=== PATIENT | male | born 1935 | race Caucasian/White ===

== ENCOUNTER → 2016-08-25 | Outpatient (REF) | payer MEDICARE ==
[~2016-08-25] MED LIST: /TAMS4CA PO; /WARF25TA; ACET25TA8 PO; ACET65TA PO; BACITAB3 PO; COUM1TAB; DIOV160T5; LEVA750T PO; LOSA100T36 PO; MULTIVIT PO; MYLI40DR PO; NEUR300C PO; NEUTRAPHOS PO; PERC5TAB8; PERCOCET PO; PROS5TAB PO; SENO8.6T10 PO; SENO8.6T2 PO; TYLENOL #3; VITA400C; ZOFR8TAB PO; ZYLO300T PO; [UNRECOGNIZED DRUG - CODE] PO
[2016-08-25 18:50] LABS: BASO # 0.1 K/mm3 (0.0-0.2); EOS # 0.3 K/mm3 (0.0-0.50); EOS % 4.6 % (0.0-3.0); LARGE UNSTAINED CELL # 0.3 K/mm3 (0.0-0.4); LARGE UNSTAINED CELL % 3.8 % (0.0-4.0); LYMPH % 27.4 % (24.0-44.0); MEAN CORPUSCULAR HEMOGLOBIN 30.7 pg (27.0-33.0); MEAN CORPUSCULAR HGB CONC 34.5 g/dl (32.0-36.5); MONO # 0.7 K/mm3 (0.0-0.8); MONO % 10.1 % (0.0-5.0); NEUTROPHILS # 3.8 K/mm3 (1.8-7.7); NEUTROPHILS % 53.1 % (36.0-66.0); PLATELET COUNT, AUTOMATED 298 k/mm3 (150-450); RED CELL DISTRIBUTION WIDTH 13.1 % (11.5-14.5); WHITE BLOOD COUNT 7.2 K/mm3 (4.0-10.0)
[2016-08-25 18:51] LABS: ADD MORPHOLOGY? NO
[2016-08-25 19:38] LABS: ALBUMIN/GLOBULIN RATIO 1.43 (1.00-1.93); BILIRUBIN,TOTAL 0.6 MG/DL (0.2-1.0); CALCIUM LEVEL 8.9 MG/DL (8.8-10.2); CREATININE FOR GFR 1.27 MG/DL (0.70-1.30); FREE T4 0.8 NG/DL (0.76-1.46); GLOMERULAR FILTRATION RATE 58.1 (>35); POTASSIUM SERUM 4.1 MEQ/L (3.5-5.1); TOTAL PROTEIN 6.8 GM/DL (6.4-8.2)
== END ==
LOC: M SFHCLERA 13:44
PROVIDERS: ATTEND Family Medicine
DX: R06.02 Shortness of breath (principal); J30.9 Allergic rhinitis, unspecified; Z79.899 Other long term (current) drug therapy

== ENCOUNTER → 2016-08-25 | Outpatient (CLI) | payer MEDICARE ==
--- NOTE | 2016-08-25 19:22 | REP ---
CHEST, TWO VIEWS: HISTORY: Dyspnea. Latest prior for comparison is a portable examination obtained at [facility] on 12/08/2013. If the patient has had priors in the interim from an outside institution then they must be obtained and imported into the [employer] system in order for a comparison to be made. [facility] is not part of the [employer] System and can not be accessed through common view. The prior examination for comparison is dated 12/08/2013, a portable examination and other older examinations have also been reviewed. The cardiomediastinal silhouette is within normal limits for the patient's age of 81-years. There is no sue cardiomegaly. There is a nodule in the left lower lung field which is completely unchanged from 12/18/2009. It is either a benign pulmonary nodule or it represents the patient's nipple shadow. The lung durán are otherwise unremarkable. The pleural angles are sharp. There is no change in the osseous structures. Chronic changes are seen are seen involving the left shoulder. IMPRESSION: No evidence of acute cardiopulmonary disease with findings as described above. Signed by William Archer DO 08/26/2016 10:12 A
== END ==
LOC: M LRY 14:05
PROVIDERS: ATTEND Nurse Practitioner Adult Health
DX: R06.02 Shortness of breath (principal); J30.9 Allergic rhinitis, unspecified; Z79.899 Other long term (current) drug therapy
CPT/HCPCS: 71020; 80053; 84439; 84443; 85025; 93005; G0463

== ENCOUNTER → 2016-10-26 | Outpatient (CLI) | payer MEDICARE ==
[~2016-10-26] MED LIST changes: +ALLO15TA GT; +FINA5TAB2 PO; +FLOM5CAP PO; +MODU5TA PO
[2016-10-26 12:55] LABS: INR 0.99
[2016-10-26 13:04] LABS: MEAN CORPUSCULAR HEMOGLOBIN 30.3 pg (27.0-33.0); MEAN CORPUSCULAR HGB CONC 33.2 g/dl (32.0-36.5); MEAN CORPUSCULAR VOLUME 91.3 fl (80.0-96.0); RED CELL DISTRIBUTION WIDTH 13.3 % (11.5-14.5); WHITE BLOOD COUNT 6.4 K/mm3 (4.0-10.0)
[2016-10-26 13:30] LABS: ALBUMIN/GLOBULIN RATIO 1.43 (1.00-1.93); ALKALINE PHOSPHATASE 84 U/L (45-117); ALT/SGPT 25 U/L (12-78); ANION GAP 8 MEQ/L (8-16); AST/SGOT 14 U/L (15-37); BLOOD UREA NITROGEN 19 MG/DL (7-18); CALCIUM LEVEL 9.5 MG/DL (8.8-10.2); CARBON DIOXIDE LEVEL 30 MEQ/L (21-32); CHLORIDE LEVEL 100 MEQ/L (98-107); CREATININE FOR GFR 1.14 MG/DL (0.70-1.30); GLOMERULAR FILTRATION RATE > 60.0 (>35); GLUCOSE, FASTING 105 MG/DL (83-110); POTASSIUM SERUM 4.1 MEQ/L (3.5-5.1); SODIUM LEVEL 138 MEQ/L (136-145); TOTAL PROTEIN 6.8 GM/DL (6.4-8.2)
== END ==
LOC: M ADMPAT 10:32
PROVIDERS: ATTEND Orthopaedic Surgery
DX: Z01.818 Encounter for other preprocedural examination (principal); M17.11 Unilateral primary osteoarthritis, right knee; Z79.899 Other long term (current) drug therapy

== ENCOUNTER 2016-11-09 06:40 | Inpatient (IN) | payer MEDICARE ==
[2016-10-26 12:01] VITALS: BP 124/70
--- NOTE | 2016-11-02 17:19 | HPE ---
DATE OF ADMISSION: 11/09/2016 HISTORY OF PRESENT ILLNESS: This is a pleasant male with continuing symptomatic right knee osteoarthritis. He has consented for a right total knee arthroplasty per Dr. Brenden Araujo. Medical optimization per Dr. Christianson. X-rays are consistent with advanced osteoarthritis. ALLERGIES: No known drug allergies. MEDICAL PROBLEM LIST: Includes: 1. Symptomatic right knee osteoarthritis. 2. Essential hypertension. 3. History of gout. 4. Benign prostatic hypertrophy (BPH). 5. Chronic obstructive pulmonary disease (COPD). 6. Herpes. 7. Obstructive sleep apnea (LACEY). 8. Bilateral hearing aids. PAST SURGICAL HISTORY: 1. Appendectomy and subsequent lysis of lesions. 2. Kidney operation as a child. 3. Knee in 2000. 4. Cyst removal, left neck September 2014. 5. Cholecystectomy. 6. Arm surgery. 7. Lithotripsy. FAMILY HISTORY: Positive for myocardial infarction ([place]), heart disease, melanoma, cancer, kidney failure, one son committed suicide. SOCIAL HISTORY: He is a former smoker and has not smoked in greater than 10 years' time. REVIEW OF SYSTEMS: Denies chest pain, shortness of breath, dyspnea on exertion, fever, chills, malaise, upper respiratory or urinary tract symptoms. PHYSICAL EXAMINATION: Height 69 inches, weight 221. Temperature 97.7, blood pressure 118/62, respirations 16, pulse 80. He is a pleasant, elderly, white male in no acute distress. He is alert and oriented times three. Mood and affect are appropriate. He is ambulating without overt antalgia or assistance, favoring as noted about the left lower extremity. Right knee examined, non-effused, ecchymotic or erythematous. Benign and noninfectious looking. Positive medial joint line tenderness to palpation with crepitance through flexion and extension. Patellofemoral joint (PFJ) is congruent, static and dynamic. No popliteal fossa mass or pain. Right hip range of motion is not limited or irritable through internal or external range of motion. LABORATORY DATA AND DIAGNOSTICS: Reviewed. The patient did have a positive urine culture for Enterococcus faecalis greater than 1000 colony count and has initiated a course of Bactrim DS as of 10/27/2016. Additionally, leukocyte esterase urine auto +1, WBC urine auto 14, RBC urine auto 6, bacteria urine auto 3+, amorphous sediment small. BUN was 19, AST/SGOT 14, hemoglobin 13.9. IMPRESSION: 1. Symptomatic right knee osteoarthritis. 2. The patient consented for a right total knee arthroplasty per Dr. Brenden Araujo. 3. Medical optimization per Dr. Christianson. 4. On-call to operating room (OR) 2 grams of IV Kefzol in OR. 5. Sequential compression device (SCD) and thromboembolic-deterrent stockings in OR. 6. The patient will complete the course of prescribed Bactrim DS per his urine culture positive for Enterococcus faecalis. CASD
[~2016-11-09] VITALS: Ht 182.9 cm; Wt 105.4 kg
[2016-11-09] VITALS (7 sets, daily range): BP systolic 114–146; BP diastolic 58–73
[~2016-11-09 06:40] MED LIST changes: -ALLO15TA GT; -FINA5TAB2 PO; -FLOM5CAP PO; -MODU5TA PO
[2016-11-09] MEDS ORDERED: LR 1,000 ML IV SCH ×2 (06:45→11:00)
[2016-11-09] MEDS ORDERED: FLOM5CAP PO (07:38)
[2016-11-09] MEDS ORDERED: TRANEXAMIC ACID 100 MG/ML 10ML VIAL As Ordered ONE (07:38)
[2016-11-09] MEDS ORDERED: FINA5TAB2 PO (07:38)
[2016-11-09] MEDS ORDERED: ALLO15TA GT (07:38)
[2016-11-09] MEDS ORDERED: BUPIVACAINE HCL 0.25% 30 ML VIAL As Ordered ONE (07:38)
[2016-11-09] MEDS ORDERED: NEUR300C PO (07:38)
[2016-11-09] MEDS ORDERED: MODU5TA PO (07:38)
[2016-11-09] MEDS ORDERED: EPINEPHrine INJ 1 MG/ML 1ML VIAL/AMP As Ordered ONE (07:39)
[2016-11-09] MEDS ORDERED: ceFAZolin 1GM INJ (J0690) As Ordered ONE (07:39)
[2016-11-09] MEDS ORDERED: MIDAZOLAM INJ 2 MG/2 ML VIAL (J2250) As Ordered ONE ×2 (08:03→09:41)
[2016-11-09] MEDS ORDERED: fentaNYL 100 MCG/2 ML INJECTION (J3010) As Ordered ONE ×3 (08:03→09:41)
--- NOTE | 2016-11-09 08:25 | IPN ---
DATE: 11/09/2016 The patient is seen and examined. He wished to go ahead with a right total knee arthroplasty. He understands the nature of procedure, risks of bleeding, infection, damage to nerves, vessels, persistent pain, wear loosening, blood clots, medical problems, , among others. Preoperative clearance was obtained. He wishes to proceed.
[2016-11-09] MEDS ORDERED: MIDAZOLAM INJ 2 MG/2 ML VIAL (J2250) IV ONE (09:00)
[2016-11-09] MEDS ORDERED: fentaNYL 100 MCG/2 ML INJECTION (J3010) IV ONE (09:00)
[2016-11-09] MEDS ORDERED: PROPOFOL 200 MG/20 ML VIAL As Ordered ONE (09:41)
[2016-11-09] MEDS ORDERED: MORPHINE 1MG/ML IN 0.9% NACL 100ML IV BAG As Ordered ONE (10:39)
[2016-11-09] MEDS ORDERED: FLEET ENEMA PR PRN (11:00)
[2016-11-09] MEDS ORDERED: ONDANSETRON 4MG/2ML VIAL (J2405) IV PRN ×3 (11:00)
[2016-11-09] MEDS ORDERED: NALOXONE INJ 0.4 MG/1 ML VIAL (J2310) IV PRN (11:00)
[2016-11-09] MEDS ORDERED: MORPHINE 2 MG/ML 1ML SYRINGE IV PRN (11:00)
[2016-11-09] MEDS ORDERED: EPIDURAL/PCA KEYS XX PRN (11:00)
[2016-11-09] MEDS ORDERED: fentaNYL 100 MCG/2 ML INJECTION (J3010) IV PRN (11:00)
[2016-11-09] MEDS ORDERED: NALBUPHINE HCL 10 MG/ML AMP (J2300) IV PRN (11:00)
[2016-11-09] MEDS ORDERED: MORPHINE 1MG/ML IN 0.9% NACL 100ML IV BAG IV PRN (11:00)
[2016-11-09] MEDS ORDERED: diphenhydrAMINE INJ 50MG/ML VIAL (J1200) IV PRN (11:00)
[2016-11-09] MEDS ORDERED: ACETAMINOPHEN TAB 650MG DOSE (2X325MG) PO PRN (11:00)
[2016-11-09] MEDS ORDERED: PATIENT IS CURRENTLY ON AN ON-Q PAIN BUSTER PAIN RELIEF SYSTEM XX SCH (11:00)
[2016-11-09] MEDS ORDERED: PERCOCET 5MG/325MG TAB PO PRN (11:00)
[2016-11-09] MEDS ORDERED: METOCLOPRAMIDE INJ 10MG/2ML VIAL (J2765) IV PRN (11:00)
--- NOTE | 2016-11-09 12:20 | RO ---
DATE OF PROCEDURE: 11/09/2016 PREOPERATIVE DIAGNOSIS: Right knee osteoarthritis. POSTOPERATIVE DIAGNOSIS: Right knee osteoarthritis. PROCEDURE: Right total knee arthroplasty using a PFC rotating platform cruciate retaining size 4 femur, size 4 tibia, 10 polyethylene, 38 patellar button. SURGEON: Brenden Araujo MD PAINT MIXER: ADRIÁN Null ANESTHESIA: Spinal. ESTIMATED BLOOD LOSS: Less than 50. COMPLICATIONS: None. INDICATIONS: This is an 81-year-old gentleman who has had gradually worsening knee pain on the right. He had failed conservative management. He had been through a knee replacement on the left and did well, and he wished go ahead with a right knee replacement. He understood the nature of this, the risks of bleeding, infection, damage to nerves, vessels, persistent pain, wear loosening, blood clots, medical problems, , among others. DESCRIPTION OF PROCEDURE: Patient taken to operating room and placed position after spinal anesthesia was induced. The right lower extremity was prepped and draped in usual sterile fashion. Time-out was performed. Tourniquet was inflated. I then created a longitudinal incision over the anterior aspect of the right knee. Sharp dissection was carried down through subcutaneous tissue and I performed a medial parapatellar arthrotomy per routine, everted the patella. I did remove some of the fat pad and did a medial release. The knee was flexed up. I used a canal initiating reamer on the femoral side, followed by the guide, which was set at 5 degrees, and a 10 mm cut using the intramedullary jaz. This was pinned in place by the social human services assistants and a distal femoral cut was made by the social human services assistants as I provided retraction. The femur was sized to be a 4. I made the drill holes in the end of the femur with the external rotation device, pinned the 4-in-1 cutting block on the end of the femur and then made the remaining four cuts protecting soft tissues. We then prepared the tibia. The tibial alignment guide was then placed in the appropriate amount of valgus and posterior slope, cutting about 2 mm off the low side because the low side was a little more deficient than we sometimes see. I then made this cut removing the bone, which seemed to be an appropriate thickness. Industrial Equipment Mechanic was used to remove soft tissue and bony osteophytes from either side of the knee and the spacer block was then used, size 10, which had excellent stability and alignment in flexion and extension, and we were very pleased with the cuts. I then prepared the tibia, size 4 guide was then pinned in place and the drill and broach were used. The trial components were then placed and put through a range of motion. Excellent stability and alignment were noted, and excellent fit of the components. I then freehand cut the patella moving about 7 or 8 mm of bone and then sized to be a 38. Drill holes were made and the patella tracked very nicely. The drill holes were made in the end of the femur. I then removed the trial components. The social human services assistants prepared the bone cement in the modern technique on the back table. I irrigated copiously as I had several times prior to this, and then dried the bony surfaces. We then cemented on the tibial component, impacted in place, placed the 10 x size 45 polyethylene and the size 4 femur was cemented on. I had placed a little bit of cement on the posterior condyles of the femoral component. We removed excess bone cement, put the knee out in extension, cemented on the patella, held this in place with a clamp and removed excess bone cement. I irrigated copiously. I then placed the placed tranexamic acid (TXA) solution in the knee and closed the deep layer with some interrupted #1 Vicryl sutures in a [id number] fashion. The running Stratafix was then used, and I was able to remove the patellar clamp after the cement had hardened. We did single arm stitches starting at the midpoint and working in opposite directions with the social human services assistants helping. I then irrigated. I closed subcutaneous with #2-0 Vicryl and the skin with roxy. The PainBuster catheter was inserted laterally into the joint and primed with 10 mL of Marcaine. I irrigated multiple times prior to closure, including copious irrigation of the deep layers after the components were placed. The tourniquet was deflated. The PainBuster was placed along the lateral side of the thigh in the usual fashion and tourniquet had been deflated. He was taken to recovery room in stable condition. There were no known complications. The plan will be routine postop. The social human services assistants was instrumental in holding retractors, making the distal femoral cut and assisting in wound closure and mixing the cement.
[2016-11-09] MEDS: TAMSULOSIN 0.4 MG CAP PO SCH (12:47)
[2016-11-09] MEDS: LR 1,000 ML IV SCH ×2 (12:48→20:09)
--- NOTE | 2016-11-09 13:59 | CR ---
DATE OF CONSULTATION: 11/09/2016 REQUESTING PHYSICIAN: Brenden Araujo MD REASON FOR CONSULTATION: Postop medical management. HISTORY OF PRESENT ILLNESS: Mr. Cerda is an 81-year-old male with past medical history significant for hypertension, chronic obstructive pulmonary disease (COPD), obstructive sleep apnea on CPAP, gout, hearing loss and osteoarthritis, who presented to the hospital with symptomatic right knee osteoarthritis. Despite medical treatment, he opted for a right total knee arthroplasty by Dr. Araujo. Surgery was done this morning without any complications. Vitals are currently stable and he will continue to be monitored closely. PAST MEDICAL HISTORY: 1. Hypertension. 2. COPD. 3. Obstructive sleep apnea on CPAP. 4. Osteoarthritis. 5. Gout. 6. Hearing loss with bilateral hearing aids. 7. Benign prostatic hypertrophy. 8. History of herpes. PAST SURGICAL HISTORY: 1. Appendectomy and lysis of adhesions. 2. Cholecystectomy. 3. Kidney operation as a child. 4. Knee surgery. 5. Cyst removal on the neck. 6. Lithotripsy. 7. Arm surgery. HOME MEDICATIONS: - acetaminophen 650 mg by mouth every 4 hours as needed - Senokot S two tablets by mouth twice daily as needed - gabapentin 300 mg twice daily - losartan 100 mg by mouth daily - amiloride/hydrochlorothiazide one tablet by mouth daily - allopurinol 300 mg daily - finasteride 5 mg by mouth at night - Flomax 0.4 mg by mouth daily ALLERGIES: No known drug allergies. SOCIAL HISTORY: Patient is a former smoker, quit in 1972. Smoked for about 5-6 years. No alcohol or illicit drug use. He lives alone. FAMILY HISTORY: Significant for coronary artery disease, cancer, and kidney disease. REVIEW OF SYSTEMS: The patient is currently postop. He denies any headache, lightheadedness or dizziness. No fevers or chills. No chest pain, sinus pressure, shortness of breath, palpitation. No nausea, vomiting, abdominal pain, diarrhea, hematochezia. No change in urinary frequency, dysuria or hematuria. No rashes. No paresthesias. No history of diabetes or thyroid disorder. Patient reports that his pain is currently controlled in the right knee. Right knee is wrapped in dressing. PHYSICAL EXAMINATION: VITAL SIGNS: Temperature 96.5, pulse 52, respiratory rate 16, blood pressure 117/67, pulse ox 98% on 2 liters nasal cannula. GENERAL: The patient is alert and oriented in no acute distress. HEENT: Normocephalic, atraumatic. Extraocular muscles are intact. Moist mucosa. NECK: Supple. No cervical lymphadenopathy or thyromegaly. HEART: Normal S1 and S2, bradycardic, regular rhythm. No murmur appreciated. LUNGS: Clear to auscultation bilaterally. No rales, rhonchi or wheezing. ABDOMEN: Soft, nontender. Positive bowel sounds. No rebound, guarding or rigidity. EXTREMITIES: Right knee is wrapped in dressing with minimal swelling. Pulses are present bilaterally. SKIN: Warm and dry. No rashes noted. NEUROLOGIC: No focal deficits. Cranial nerves II through XII are grossly intact. Sensation intact. Right knee limited secondary to recent surgery. All other extremities are moving normally. LABORATORY DATA: No new labs. ASSESSMENT/PLAN: Mr. Cerda is a 81-year-old male status post right knee arthroplasty by Dr. Araujo. 1. Right knee osteoarthritis status post right total knee arthroplasty postop day number 0. Pain medication and deep vein thrombosis (DVT) prophylaxis per orthopedics. The patient's pain is currently well controlled. 2. Hypertension. Blood pressure is stable. Will continue to monitor. He takes losartan at home, which we will hold for the time being. If blood pressures become elevated tomorrow, we will resume his home medication. The patient also takes amiloride/hydrochlorothiazide. 3. COPD. Breathing is currently stable. DuoNeb breathing treatments as needed. 4. Obstructive sleep apnea. The patient may use home CPAP. 5. History of gout. Continue with allopurinol daily. 6. Benign prostatic hypertrophy. Finasteride and Flomax daily. 7. Hearing loss. The patient uses bilateral hearing aids. 8. Deep vein thrombosis (DVT) prophylaxis. Patient is on warfarin. Thank you for the consultation and allowing us to participate in the care of Mr. Cerda. We will continue to follow along with you. My preceptor for this patient encounter was Dr. Eulalia Rapp. The preceptor was physically present in the building during the encounter and was fully available. As needed, all aspects of the patient interview, examination, medical decision making process, and medical care plan development were reviewed and approved by the preceptor. The preceptor is aware and concurs with the plan as stated in the body of this note and will attest to such by his/her cosignature.
[2016-11-09] MEDS ORDERED: WARFARIN SOD 5 MG TAB PO SCH (17:00)
[2016-11-09] MEDS: FINASTERIDE 5 MG TAB PO SCH (20:08)
[2016-11-10 00:30] VITALS: BP 133/72
[2016-11-10 04:30] VITALS: BP 143/72
[2016-11-10 06:01] VITALS: BP 147/69
[2016-11-10] MEDS ORDERED: ONDANSETRON 4 MG TAB (S0181) PO PRN (06:45)
[2016-11-10 07:31] LABS: MEAN CORPUSCULAR HEMOGLOBIN 30.7 pg (27.0-33.0); MEAN CORPUSCULAR HGB CONC 33.9 g/dl (32.0-36.5); MEAN CORPUSCULAR VOLUME 90.7 fl (80.0-96.0); RED CELL DISTRIBUTION WIDTH 13.5 % (11.5-14.5); WHITE BLOOD COUNT 10.1 K/mm3 (4.0-10.0)
[2016-11-10 07:34] LABS: INR 1.22
[2016-11-10 07:58] LABS: ANION GAP 7 MEQ/L (8-16); BLOOD UREA NITROGEN 17 MG/DL (7-18); CALCIUM LEVEL 8.3 MG/DL (8.8-10.2); CARBON DIOXIDE LEVEL 30 MEQ/L (21-32); CHLORIDE LEVEL 101 MEQ/L (98-107); CREATININE FOR GFR 0.97 MG/DL (0.70-1.30); GLOMERULAR FILTRATION RATE > 60.0 (>35); GLUCOSE, FASTING 125 MG/DL (83-110); SODIUM LEVEL 138 MEQ/L (136-145)
--- NOTE | 2016-11-10 09:01 | REP ---
Right knee series: Two views. History: Right knee arthroplasty. Placement check. Findings: The femoral, patellar, and tibial prosthetic components of the right knee arthroplasty are well aligned with respect to each other and their [place] bones. Anterior skin roxy are seen. Periarticular soft tissue swelling and postoperative emphysema are noted. A catheter-based analgesia device is seen in the distal thigh. Signed by Isaias Heath MD 11/10/2016 12:00 P
[2016-11-10] MEDS: MIRALAX *UNIT DOSE* 17GM PACKET PO SCH (09:39)
[2016-11-10] MEDS: MOM 30ML SUSPENSION UDC PO SCH (09:39)
[2016-11-10] MEDS: ALLOPURINOL 300 MG TAB PO SCH (09:39)
[2016-11-10] MEDS: SENOKOT S TAB PO SCH ×2 (09:40→20:24)
[2016-11-10] MEDS: TAMSULOSIN 0.4 MG CAP PO SCH (09:40)
[2016-11-10] MEDS: PERCOCET 5MG/325MG TAB PO PRN ×3 (09:40→21:37)
[2016-11-10 10:00] VITALS: BP 148/72
[2016-11-10 14:00] VITALS: BP 160/80
--- NOTE | 2016-11-10 14:42 | IPNPDOC ---
Subjective Date Seen The patient was seen on 11/10/16. Subjective Chief Complaint/HPI The patient is a 81-year-old male admitted with a reason for visit of Arthritis Right Knee. Events since last encounter Patient was seen this morning at bedside. Pain is currently controlled. He reports that he had some vomiting early this morning after receiving morphine. He received Zofran and it resolved. No recurrence since. He denies any nausea or abd pain. No chest pain/pressure, SOB, palpitations. No dizziness or headache. He states that he doesn't have much of an appetite. He states he usually doesn't eat much for lunch but usually has a good dinner. He is passing flatus, no BM yet. Objective Physical Examination General Exam: Positive: Alert, Cooperative, No Acute Distress Eye Exam: Positive: Conjunctiva & lids normal, EOMI, Negative: Sclera icteric ENT Exam: Positive: Atraumatic, Mucous membr. moist/pink, Pharynx Normal Neck Exam: Positive: Supple Chest Exam: Positive: Clear to auscultation, Normal air movement Heart Exam: Positive: Rate Normal, Regular Rhythm, Normal S1, Normal S2, Murmurs Abdomen Exam: Positive: Normal bowel sounds, Soft, Negative: Tenderness Extremity Exam: Positive: Edema (mild edema around right knee), Normal pulses, Tenderness (right knee is appropriately tender), Negative: Cyanosis Skin Exam: Positive: Nl turgor and temperature, Negative: Rash Neuro Exam: Positive: Normal Speech, Cranial Nerves 3-12 NL Assessment /Plan Problems (1) Osteoarthritis of right knee Status: Acute Problem Specific Plan: Monitor Clinically Problem Text: * Status post right total knee arthroplasty, post op day #1 * Pain medication, DVT prophylaxis and bowel regimen per ortho (2) Hypertension Status: Chronic Problem Text: * Will resume losartan at 1/2 his home dose * Monitor BP and add on medication as needed (3) Obstructive sleep apnea Status: Chronic Problem Specific Plan: Monitor Clinically Problem Text: * Continue with home CPAP (4) COPD (chronic obstructive pulmonary disease) Status: Chronic Problem Specific Plan: Monitor Clinically Problem Text: * Breathing stable and at baseline * Duoneb as needed (5) Gout Status: Chronic Problem Specific Plan: Monitor Clinically Problem Text: * Continue allopurinol (6) BPH (benign prostatic hyperplasia) Status: Chronic Problem Specific Plan: Monitor Clinically Problem Text: * Continue Flomax and finasteride Plan/VTE VTE Prophylaxis Ordered?: Yes (coumadin) VS, I&O, 24H, Fishbone Vital Signs/I&O Vital Signs Date Time Temp Pulse Resp B/P (MAP) Pulse Ox O2 Delivery O2 Flow Rate FiO2 11/10/16 10:10 18 11/10/16 10:00 97.0 61 148/72 (97) 95 Room Air 11/10/16 00:29 97 11/09/16 14:30 2.0 I&O- Last 24 Hours up to 6 AM 11/10/16 06:00 Intake Total 3720 ml Output Total 1050 ml Balance 2670 ml Laboratory Data CBC/BMP Laboratory Tests 11/10/16 07:16 Red Blood Count 3.66 L, Mean Corpuscular Volume 90.7, Mean Corpuscular Hemoglobin 30.7, Mean Corpuscular Hemoglobin Concent 33.9, Red Cell Distribution Width 13.5, Calcium Level 8.3 L GME ATTESTATION GME ATTESTATION My preceptor for this patient encounter was physically present in the building during the encounter and was fully available. As needed, all aspects of the patient interview, examination, medical decision making process, and medical care plan development were reviewed and approved by the preceptor. Preceptor is aware and concurs with the plan as stated in the body of this note and will attest to such by his/her cosignature. TAYLOR HOLLOWAY DO November 10, 2016 14:42
[2016-11-10] MEDS: LOSARTAN 50 MG TAB PO SCH (14:57)
[2016-11-10] MEDS ORDERED: WARFARIN SOD 5 MG TAB PO ONE (17:00)
[2016-11-10] MEDS: FINASTERIDE 5 MG TAB PO SCH (20:24)
[2016-11-10 22:00] VITALS: BP 152/71
[2016-11-11 02:00] VITALS: BP 128/70
[2016-11-11] MEDS: PERCOCET 5MG/325MG TAB PO PRN ×3 (02:46→18:27)
[2016-11-11 06:00] VITALS: BP 119/71
[2016-11-11 06:46] LABS: MEAN CORPUSCULAR HGB CONC 33.9 g/dl (32.0-36.5); MEAN CORPUSCULAR VOLUME 91.6 fl (80.0-96.0); RED CELL DISTRIBUTION WIDTH 13.7 % (11.5-14.5); WHITE BLOOD COUNT 7.3 K/mm3 (4.0-10.0)
[2016-11-11 06:51] LABS: INR 1.38
[2016-11-11 07:08] LABS: ANION GAP 1 MEQ/L (8-16); BLOOD UREA NITROGEN 14 MG/DL (7-18); CALCIUM LEVEL 8.6 MG/DL (8.8-10.2); CARBON DIOXIDE LEVEL 35 MEQ/L (21-32); CHLORIDE LEVEL 100 MEQ/L (98-107); GLOMERULAR FILTRATION RATE > 60.0 (>35); GLUCOSE, FASTING 114 MG/DL (83-110); POTASSIUM SERUM 3.9 MEQ/L (3.5-5.1); SODIUM LEVEL 136 MEQ/L (136-145)
[2016-11-11] MEDS ORDERED: FLEET ENEMA PR ONE (08:30)
[2016-11-11] MEDS: MOM 30ML SUSPENSION UDC PO SCH (08:42)
[2016-11-11] MEDS: SENOKOT S TAB PO SCH ×2 (08:43→20:49)
[2016-11-11] MEDS: TAMSULOSIN 0.4 MG CAP PO SCH (08:43)
[2016-11-11] MEDS: ALLOPURINOL 300 MG TAB PO SCH (08:43)
[2016-11-11] MEDS: MIRALAX *UNIT DOSE* 17GM PACKET PO SCH (08:43)
[2016-11-11] MEDS: LOSARTAN 50 MG TAB PO SCH (08:44)
--- NOTE | 2016-11-11 14:01 | IPNPDOC ---
Subjective Date Seen The patient was seen on 11/11/16. Subjective Chief Complaint/HPI The patient is a 81-year-old male admitted with a reason for visit of Arthritis Right Knee. Events since last encounter Patient was seen this morning at bedside. No acute overnight events. He states that pain is controlled. No nausea, vomiting, abdominal pain, chest pain/ pressure, shortness of breath, fevers, chills, diarrhea. He reports that he is passing flatus but has not had a bowel movement yet. He is eating well. Objective Physical Examination General Exam: Positive: Alert, Cooperative, No Acute Distress Eye Exam: Positive: Conjunctiva & lids normal, EOMI, Negative: Sclera icteric ENT Exam: Positive: Atraumatic, Mucous membr. moist/pink, Pharynx Normal Neck Exam: Positive: Supple Chest Exam: Positive: Clear to auscultation, Normal air movement Heart Exam: Positive: Rate Normal, Regular Rhythm, Normal S1, Normal S2, Murmurs Abdomen Exam: Positive: Normal bowel sounds, Soft, Negative: Tenderness Extremity Exam: Positive: Edema (mild edema around right knee), Normal pulses, Tenderness (mild tenderness around right knee), Negative: Cyanosis Skin Exam: Positive: Nl turgor and temperature, Negative: Rash Neuro Exam: Positive: Normal Speech, Cranial Nerves 3-12 NL Assessment /Plan Problems (1) Osteoarthritis of right knee Status: Acute Problem Specific Plan: Monitor Clinically Problem Text: * Status post right total knee arthroplasty, post op day #2 * Pain medication, DVT prophylaxis and bowel regimen per ortho * Likely to be dc'ed tomorrow (2) Hypertension Status: Chronic Problem Text: * Continue current dose of losartan * Monitor BP and add on medication as needed (3) Obstructive sleep apnea Status: Chronic Problem Specific Plan: Monitor Clinically Problem Text: * Continue with home CPAP (4) COPD (chronic obstructive pulmonary disease) Status: Chronic Problem Specific Plan: Monitor Clinically Problem Text: * Breathing stable and at baseline * Duoneb as needed (5) Gout Status: Chronic Problem Specific Plan: Monitor Clinically Problem Text: * Continue allopurinol (6) BPH (benign prostatic hyperplasia) Status: Chronic Problem Specific Plan: Monitor Clinically Problem Text: * Continue Flomax and finasteride Plan/VTE VTE Prophylaxis Ordered?: Yes (coumadin) VS, I&O, 24H, Fishbone Vital Signs/I&O Vital Signs Date Time Temp Pulse Resp B/P (MAP) Pulse Ox O2 Delivery O2 Flow Rate FiO2 11/11/16 09:13 18 11/11/16 08:44 119/71 11/11/16 06:00 97.8 66 94 Room Air 11/10/16 00:29 97 11/09/16 14:30 2.0 I&O- Last 24 Hours up to 6 AM 11/11/16 06:00 Intake Total 1200 ml Output Total 400 ml Balance 800 ml Laboratory Data CBC/BMP Laboratory Tests 11/11/16 06:18 Red Blood Count 3.64 L, Mean Corpuscular Volume 91.6, Mean Corpuscular Hemoglobin 31.0, Mean Corpuscular Hemoglobin Concent 33.9, Red Cell Distribution Width 13.7, Calcium Level 8.6 L GME ATTESTATION GME ATTESTATION My preceptor for this patient encounter was physically present in the building during the encounter and was fully available. As needed, all aspects of the patient interview, examination, medical decision making process, and medical care plan development were reviewed and approved by the preceptor. Preceptor is aware and concurs with the plan as stated in the body of this note and will attest to such by his/her cosignature. TAYLOR HOLLOWAY DO November 11, 2016 14:01
[2016-11-11] MEDS ORDERED: dexameTHASONE 10 MG/1 ML VIAL PRES.FREE (J1100) ONE (15:09)
[2016-11-11] MEDS ORDERED: ROPIvacaine 0.5% 30 ML INJECTION (J2795) ONE (15:09)
[2016-11-11] MEDS ORDERED: WARFARIN SOD 7.5 MG TAB PO ONE (17:00)
[2016-11-11] MEDS: FINASTERIDE 5 MG TAB PO SCH (20:49)
[2016-11-11] MEDS ORDERED: MAGNESIUM CITRATE 300 ML BTL PO ONE (21:15)
[2016-11-11 22:00] VITALS: BP 133/67
[2016-11-12 06:00] VITALS: BP 148/79
[2016-11-12 06:59] LABS: INR 1.35
[2016-11-12 07:08] LABS: ANION GAP 8 MEQ/L (8-16); BLOOD UREA NITROGEN 15 MG/DL (7-18); CARBON DIOXIDE LEVEL 27 MEQ/L (21-32); CHLORIDE LEVEL 100 MEQ/L (98-107); CREATININE FOR GFR 0.91 MG/DL (0.70-1.30); GLOMERULAR FILTRATION RATE > 60.0 (>35); GLUCOSE, FASTING 120 MG/DL (83-110); POTASSIUM SERUM 4.1 MEQ/L (3.5-5.1); SODIUM LEVEL 135 MEQ/L (136-145)
[2016-11-12] MEDS ORDERED: PERC5TAB6 PO (08:14)
[2016-11-12] MEDS ORDERED: COUM2.5T11 PO (08:14)
[2016-11-12] MEDS ORDERED: MAGNESIUM CITRATE 300 ML BTL PO ONE (09:00)
[2016-11-12] MEDS ORDERED: FLEET ENEMA PR ONE (09:00)
[2016-11-12] MEDS: MOM 30ML SUSPENSION UDC PO SCH (09:03)
[2016-11-12] MEDS: MIRALAX *UNIT DOSE* 17GM PACKET PO SCH (09:03)
[2016-11-12] MEDS: TAMSULOSIN 0.4 MG CAP PO SCH (09:03)
[2016-11-12] MEDS: LOSARTAN 50 MG TAB PO SCH (09:03)
[2016-11-12] MEDS: ALLOPURINOL 300 MG TAB PO SCH (09:04)
[2016-11-12] MEDS: SENOKOT S TAB PO SCH ×2 (09:04→20:48)
--- NOTE | 2016-11-12 10:40 | IPNPDOC ---
Subjective Date Seen The patient was seen on 11/12/16. Subjective Chief Complaint/HPI The patient is a 81-year-old male admitted with a reason for visit of Arthritis Right Knee. Events since last encounter Patient was seen this morning at bedside. He has a little bit of abdominal bloating as he has not had a bowel movement. He also complained of hiccups which occur after he drinks liquids after receiving the anesthesia. Otherwise, no other complaints. No nausea, vomiting, abdominal pain, diarrhea. No chest pain/pressure, shortness of breath, fevers or chills. Pain of the knee is controlled, stated that he didn't even require pain medication this morning. Objective Physical Examination General Exam: Positive: Alert, Cooperative, No Acute Distress Eye Exam: Positive: Conjunctiva & lids normal, EOMI, Negative: Sclera icteric ENT Exam: Positive: Atraumatic, Mucous membr. moist/pink, Pharynx Normal Neck Exam: Positive: Supple Chest Exam: Positive: Clear to auscultation, Normal air movement Heart Exam: Positive: Rate Normal, Regular Rhythm, Normal S1, Normal S2, Murmurs Abdomen Exam: Positive: Normal bowel sounds, Soft, Negative: Tenderness Extremity Exam: Positive: Edema (minimal edema around right knee), Normal pulses, Negative: Cyanosis, Tenderness Skin Exam: Positive: Nl turgor and temperature, Negative: Rash Neuro Exam: Positive: Normal Speech, Cranial Nerves 3-12 NL Assessment /Plan Problems (1) Osteoarthritis of right knee Status: Acute Problem Specific Plan: Monitor Clinically Problem Text: * Status post right total knee arthroplasty, post op day #2 * Pain medication, DVT prophylaxis and bowel regimen per ortho * He has some abdominal bloating and bowel regimen has been increased * INR is subtherapeutic, Coumadin dose has been adjusted (2) Hypertension Status: Chronic Problem Text: * Continue current dose of losartan * Blood pressure has been stable off of his diuretic, will discontinue diuretic (3) Obstructive sleep apnea Status: Chronic Problem Specific Plan: Monitor Clinically Problem Text: * Continue with home CPAP (4) COPD (chronic obstructive pulmonary disease) Status: Chronic Problem Specific Plan: Monitor Clinically Problem Text: * Breathing stable and at baseline * Duoneb as needed (5) Gout Status: Chronic Problem Specific Plan: Monitor Clinically Problem Text: * Continue allopurinol (6) BPH (benign prostatic hyperplasia) Status: Chronic Problem Specific Plan: Monitor Clinically Problem Text: * Continue Flomax and finasteride Plan/VTE VTE Prophylaxis Ordered?: Yes (coumadin) VS, I&O, 24H, Fishbone Vital Signs/I&O Vital Signs Date Time Temp Pulse Resp B/P (MAP) Pulse Ox O2 Delivery O2 Flow Rate FiO2 11/12/16 09:03 126/62 11/12/16 06:00 98.2 73 18 93 Room Air 11/10/16 00:29 97 11/09/16 14:30 2.0 I&O- Last 24 Hours up to 6 AM 11/12/16 06:00 Intake Total 360 ml Output Total 0 ml Balance 360 ml Laboratory Data CBC/BMP Laboratory Tests 11/12/16 06:15 Calcium Level 8.0 L GME ATTESTATION GME ATTESTATION My preceptor for this patient encounter was physically present in the building during the encounter and was fully available. As needed, all aspects of the patient interview, examination, medical decision making process, and medical care plan development were reviewed and approved by the preceptor. Preceptor is aware and concurs with the plan as stated in the body of this note and will attest to such by his/her cosignature. TAYLOR HOLLOWAY DO November 12, 2016 10:40
[2016-11-12] MEDS ORDERED: MAGNESIUM CITRATE 300 ML BTL PO PRN (12:00)
[2016-11-12] MEDS ORDERED: WARFARIN SOD 10 MG TAB PO ONE (17:00)
[2016-11-12] MEDS: FINASTERIDE 5 MG TAB PO SCH (20:48)
[2016-11-12] MEDS: PERCOCET 5MG/325MG TAB PO PRN (20:49)
[2016-11-12 22:00] VITALS: BP 119/58
[2016-11-13 06:00] VITALS: BP 132/61
[2016-11-13 06:45] LABS: INR 1.63
[2016-11-13 07:04] LABS: ANION GAP 6 MEQ/L (8-16); BLOOD UREA NITROGEN 20 MG/DL (7-18); CALCIUM LEVEL 8.3 MG/DL (8.8-10.2); CARBON DIOXIDE LEVEL 30 MEQ/L (21-32); CHLORIDE LEVEL 100 MEQ/L (98-107); CREATININE FOR GFR 0.96 MG/DL (0.70-1.30); GLOMERULAR FILTRATION RATE > 60.0 (>35); GLUCOSE, FASTING 121 MG/DL (83-110); POTASSIUM SERUM 3.7 MEQ/L (3.5-5.1); SODIUM LEVEL 136 MEQ/L (136-145)
[2016-11-13 08:27] VITALS: BP 132/61
[2016-11-13] MEDS: MIRALAX *UNIT DOSE* 17GM PACKET PO SCH (08:27)
[2016-11-13] MEDS: MOM 30ML SUSPENSION UDC PO SCH (08:27)
[2016-11-13] MEDS: TAMSULOSIN 0.4 MG CAP PO SCH (08:27)
[2016-11-13] MEDS: LOSARTAN 50 MG TAB PO SCH (08:27)
[2016-11-13] MEDS: SENOKOT S TAB PO SCH (08:28)
[2016-11-13] MEDS: ALLOPURINOL 300 MG TAB PO SCH (08:28)
[2016-11-13] MEDS: PERCOCET 5MG/325MG TAB PO PRN (08:28)
[2016-11-13 11:00] VITALS: BP 126/66
[2016-11-13] MEDS ORDERED: PERCOCET 5MG/325MG TAB PO PRN ×2 (11:00)
--- NOTE | 2016-11-13 11:24 | IPNPDOC ---
Subjective Date Seen The patient was seen on 11/13/16. Subjective Chief Complaint/HPI The patient is a 81-year-old male admitted with a reason for visit of Arthritis Right Knee. Events since last encounter Patient was seen this morning at bedside. No acute overnight issues. He had some hiccups this morning. States that it occurs after he drinks something but it goes away arm. He denied any arm nausea, vomiting, abdominal pain, dizziness. No chest pain/pressure, shortness of breath. He had a bowel movement yesterday. He reports that abdomen feels fine and distention has improved after bowel movement. Pain is controlled in the right knee. No fevers or chills. Objective Physical Examination General Exam: Positive: Alert, Cooperative, No Acute Distress Eye Exam: Positive: Conjunctiva & lids normal, EOMI, Negative: Sclera icteric ENT Exam: Positive: Atraumatic, Mucous membr. moist/pink, Pharynx Normal Neck Exam: Positive: Supple Chest Exam: Positive: Clear to auscultation, Normal air movement Heart Exam: Positive: Rate Normal, Regular Rhythm, Normal S1, Normal S2, Murmurs Abdomen Exam: Positive: Normal bowel sounds, Soft, Negative: Tenderness Extremity Exam: Positive: Edema (minimal edema around right knee), Normal pulses, Negative: Cyanosis, Tenderness Skin Exam: Positive: Nl turgor and temperature, Negative: Rash Neuro Exam: Positive: Normal Speech, Cranial Nerves 3-12 NL Assessment /Plan Problems (1) Osteoarthritis of right knee Status: Acute Problem Specific Plan: Monitor Clinically Problem Text: * Status post right total knee arthroplasty, post op day #3 * Pain medication, DVT prophylaxis and bowel regimen per ortho * INR is subtherapeutic, Coumadin dose has been adjusted * Will continue with Coumadin as outpatient * Will be discharged today (2) Hypertension Status: Chronic Problem Text: * Continue losartan * Blood pressure has been stable off of his diuretic, will will not resume his diuretic on discharge (3) Obstructive sleep apnea Status: Chronic Problem Specific Plan: Monitor Clinically Problem Text: * Continue with home CPAP (4) COPD (chronic obstructive pulmonary disease) Status: Chronic Problem Specific Plan: Monitor Clinically Problem Text: * Breathing stable and at baseline * Duoneb as needed (5) Gout Status: Chronic Problem Specific Plan: Monitor Clinically Problem Text: * Continue allopurinol (6) BPH (benign prostatic hyperplasia) Status: Chronic Problem Specific Plan: Monitor Clinically Problem Text: * Continue Flomax and finasteride Plan/VTE VTE Prophylaxis Ordered?: Yes (coumadin) VS, I&O, 24H, Fishbone Vital Signs/I&O Vital Signs Date Time Temp Pulse Resp B/P (MAP) Pulse Ox O2 Delivery O2 Flow Rate FiO2 11/13/16 09:16 20 11/13/16 08:27 132/61 11/13/16 08:00 Room Air 11/13/16 06:00 99.5 67 93 11/10/16 00:29 97 11/09/16 14:30 2.0 I&O- Last 24 Hours up to 6 AM 11/13/16 06:00 Intake Total 240 ml Output Total 0 ml Balance 240 ml Laboratory Data CBC/BMP Laboratory Tests 11/13/16 06:19 Calcium Level 8.3 L GME ATTESTATION GME ATTESTATION My preceptor for this patient encounter was physically present in the building during the encounter and was fully available. As needed, all aspects of the patient interview, examination, medical decision making process, and medical care plan development were reviewed and approved by the preceptor. Preceptor is aware and concurs with the plan as stated in the body of this note and will attest to such by his/her cosignature. TAYLOR HOLLOWAY DO November 13, 2016 11:24
[2016-11-13] MEDS ORDERED: MORPHINE 15 MG SA TAB PO SCH (21:00)
--- NOTE | 2016-11-16 19:49 | DSES ---
DATE OF ADMISSION: 11/09/2016 DATE OF DISCHARGE: 11/13/2016 ADMISSION DIAGNOSIS: Osteoarthritis right knee. OTHER DIAGNOSES: Hypertension, gout, benign prostatic hypertrophy, chronic obstructive pulmonary disease (COPD), sleep apnea, hearing loss. DISCHARGE DIAGNOSIS: Osteoarthritis right knee status post right total knee arthroplasty. OPERATION PERFORMED: Right total knee arthroplasty. HISTORY: This is a pleasant 81-year-old male patient with progressively worsening right knee pain and stiffness who failed to improve with conservative management. He was admitted for elective knee replacement on the right side. HOSPITAL COURSE: The patient was admitted on day of surgery and underwent a right total knee arthroplasty which was uneventful. He did well in the postoperative period and hospital course was without complications. He was up with therapy per their protocol. His pain was controlled. On day of discharge he was doing well, weightbearing as tolerated on his right lower extremity. He will move his right knee to prevent stiffness. He will use adjusted dose Coumadin and thromboembolic deterrent (JAROD) stockings for 30 days postoperative for deep venous thrombosis (DVT) prophylaxis. He will resume his preoperative medications and diet. He was given instructions to include but not limited to wound monitoring and activity limitations. He will followup in our office in 10-14 days for surgical followup. Please refer to the medical record for further details.
== END 2016-11-13 11:12 | disposition home health service (06) | DRG 470 ==
LOC: M OR 06:40 → M MS5PR 11:40
PROVIDERS: ADMIT Orthopaedic Surgery; ATTEND Orthopaedic Surgery
PROC: 0SRC0J9 Replacement of Right Knee Joint with Synthetic Substitute, Cemented, Open Approach (ICD-10-PCS; principal; 2016-11-09 09:00)
DX: M17.11 Unilateral primary osteoarthritis, right knee (principal); I10 Essential (primary) hypertension; M10.9 Gout, unspecified; N40.0 Benign prostatic hyperplasia without lower urinary tract symptoms; B00.9 Herpesviral infection, unspecified; J44.9 Chronic obstructive pulmonary disease, unspecified; H91.93 Unspecified hearing loss, bilateral; G47.33 Obstructive sleep apnea (adult) (pediatric); Z97.4 Presence of external hearing-aid; Z90.49 Acquired absence of other specified parts of digestive tract; Z82.49 Family history of ischemic heart disease and other diseases of the circulatory system; Z80.9 Family history of malignant neoplasm, unspecified; Z81.8 Family history of other mental and behavioral disorders; Z84.1 Family history of disorders of kidney and ureter; Z87.891 Personal history of nicotine dependence; Z99.89 Dependence on other enabling machines and devices; Z79.899 Other long term (current) drug therapy

== ENCOUNTER → 2017-02-24 | Outpatient (CLI) | payer MEDICARE ==
[~2017-02-24] MED LIST changes: +ALLO15TA GT; +BACITAB PO; -BACITAB3 PO; +COUM2.5T17 PO; +FINA5TAB2 PO; +FLOM5CAP PO; -LEVA750T PO; +LEVA750T7 PO; +MODU5TA PO; +PERC5TAB12 PO; -SENO8.6T2 PO; +SENO8.6T5 PO
--- NOTE | 2017-02-24 15:19 | REP ---
KUB, ONE VIEW: HISTORY: Renal calculi. COMPARISON: 02/19/2016 A calcification is present overlying the lower pole of the left kidney, consistent with nephrolithiasis. The intestinal gas pattern is nonspecific. Surgical clips are present in the right upper quadrant. IMPRESSION: Left nephrolithiasis. Signed by Franco Chandler MD 02/24/2017 03:36 P
== END ==
LOC: M SMT 14:09
PROVIDERS: ATTEND Urology
DX: N20.0 Calculus of kidney (principal)
CPT/HCPCS: 74000; G0463

== ENCOUNTER → 2017-05-06 | Outpatient (REF) | payer MEDICARE | LOC: M SFHCLERA 18:41 | PROVIDERS: ATTEND Physician Assistant Medical | DX: R50.9 Fever, unspecified (principal); B34.9 Viral infection, unspecified ==

== ENCOUNTER → 2017-05-06 | Outpatient (CLI) | payer MEDICARE ==
--- NOTE | 2017-05-06 19:11 | REP ---
CHEST PA AND LATERAL X-RAY: 05/06/2017. Clinical history: Fever of unknown cause. Comparison: 08/25/2016, portable chest 12/08/2013. Findings: Two views are provided showing the lung durán well inflated. CP angles are sharply defined. There is no effusion or lateral pleural thickening. No significant apical scarring. Some underlying mild interstitial fibrotic changes without dense consolidation or parenchymal mass. Heart is not enlarged. There is no pulmonary edema. The aorta is mildly tortuous. Airway is intact. Bony thorax shows no compression deformity or focal lesion. No free air. Lateral view shows upper abdominal surgical clips. Impression: 1. No cardiomegaly, edema, effusion or acute infiltrate. Negative for acute finding. There are some underlying degenerative changes in the spine and fibrotic changes in the chest. Signed by Lorne Villaseñor MD 05/06/2017 07:50 P
== END ==
LOC: M LRY 18:46
PROVIDERS: ATTEND Physician Assistant Medical
DX: R50.9 Fever, unspecified (principal)
CPT/HCPCS: 71020; 81002; 87804; 87880; G0463

== ENCOUNTER → 2018-10-06 | Outpatient (CLI) | payer MEDICARE ==
[~2018-10-06] MED LIST changes: -/TAMS4CA PO; -/WARF25TA; -ALLO15TA GT; +ALLO300T2 GT; +COUM1TAB18; +FLOM0.4C39 PO; -FLOM5CAP PO; -LOSA100T36 PO; +LOSA100T50 PO; -ZOFR8TAB PO; +ZOFR8TAB24 PO
--- NOTE | 2018-10-06 15:30 | REP ---
PA and lateral chest: Comparison is 05/06/2017. The lung durán are clear. The cardiac size is normal. The deepali, mediastinum, and skeletal structures are unremarkable. Impression: Negative PA and lateral chest. There is no significant interval change. Electronically Signed by Andres Martel MD 10/06/2018 03:21 P
== END ==
LOC: M RAD 13:35
PROVIDERS: ATTEND Otolaryngology
DX: R22.1 Localized swelling, mass and lump, neck (principal)

== ENCOUNTER → 2018-11-01 | Outpatient (CLI) | payer MEDICARE ==
--- NOTE | 2018-11-01 12:00 | REP ---
RIGHT NECK ULTRASOUND: Right neck ultrasound performed prior to a scheduled biopsy of a mass seen on CT scan 07/18/2018 from [facility]. Ultrasound of the area in question does not show evidence of a mass. Review of the prior CT images shows that this represents partially opacified portion of the inferior right jugular vein, which appears somewhat bulbous. No mass is seen at that location, and therefore the biopsy is not performed. Note is made of multiple nodules in the right lobe of the thyroid. The largest is in the upper pole and measures 1.6 cm in diameter. IMPRESSION: Suspected mass on the prior CT from [facility] 07/18/2018 corresponds to the inferior right jugular vein. There is no mass in this region sonographically. Incidental note made of multiple nodules in the right lobe of the thyroid gland, the largest is in the upper pole 1.6 cm in diameter. Electronically Signed by Andres López MD 11/02/2018 03:00 P
== END ==
LOC: M RADPRO 08:12
PROVIDERS: ATTEND Otolaryngology
DX: R22.1 Localized swelling, mass and lump, neck (principal)

== ENCOUNTER → 2020-07-09 | Outpatient (CLI) | payer MEDICARE ==
--- NOTE | 2020-07-09 10:39 | REP ---
INDICATION: LT FLANK PAIN H/O KIDNEY STONES ? STONE COMPARISON: 11/19/2014 TECHNIQUE: Axial noncontrast images from the lung bases to the pubic symphysis with coronal and sagittal reformations. This CT examination was performed using the following dose reduction techniques: Automated exposure control, adjustment of mA and/or kv according to the patient's size, and use of iterative reconstruction technique. FINDINGS: Lung bases are clear. Visualized heart and pericardium normal. Kidneys demonstrate bilateral cysts including multiple right peripelvic cysts. Left kidney includes nonobstructing calculi measuring up to 7 mm without perinephric stranding or obstructing ureteral calculus. The bladder demonstrates chronic appearing wall thickening with small diverticula and trabeculated pattern secondary to chronic outlet obstruction from markedly enlarged prostate gland measuring greater than 6 cm diameter and 7 cm craniocaudal length. Liver, spleen, pancreas, and bilateral adrenal glands normal. Evidence for prior cholecystectomy. The enteric system is without obstruction or acute inflammatory process. Scattered diverticula noted without acute diverticulitis. Pelvis demonstrates bladder and prostate as described above. No ascites. No free air. No adenopathy. Atherosclerotic changes to the aorta and vasculature without aneurysm or dissection. Musculoskeletal structures demonstrate degenerative changes without focal osseous abnormality. IMPRESSION: Left renal calculi up to 7 mm without obstructing ureterolith. Bilateral renal cysts. Chronic changes to the bladder secondary to enlarged prostate gland. Sigmoid diverticula. <Electronically signed by Williams Mcmahon > 07/09/20 [id number]
== END ==
LOC: M RAD 10:11
PROVIDERS: ATTEND Nurse Practitioner Women's Health
DX: Q61.02 Congenital multiple renal cysts (principal); N20.0 Calculus of kidney; K57.30 Diverticulosis of large intestine without perforation or abscess without bleeding; R10.9 Unspecified abdominal pain; Z87.442 Personal history of urinary calculi; Z90.49 Acquired absence of other specified parts of digestive tract
CPT/HCPCS: 51798; 74176; 81001; 87088; 87186; G0463

== ENCOUNTER → 2020-07-09 | Outpatient (REF) | payer MEDICARE ==
[2020-07-09 13:49] LABS: APPEARANCE, URINE TURBID (CLEAR); BACTERIA, URINE AUTO NEGATIVE (NEGATIVE); BILIRUBIN, URINE AUTO NEGATIVE (NEGATIVE); BLOOD, URINE BLOOD 1+ (NEGATIVE); COLOR, URINE YELLOW (YELLOW); GLUCOSE, URINE (UA) AUTO NEGATIVE (NEGATIVE); KETONE, URINE AUTO NEGATIVE (NEGATIVE); LEUKOCYTE ESTERASE, URINE AUTO 1+ (NEGATIVE); NITRITE, URINE AUTO NEGATIVE (NEGATIVE); PROTEIN, URINE AUTO 3+ mg/dL (NEGATIVE); RBC, URINE AUTO 0 /HPF (0-3); SPECIFIC GRAVITY URINE AUTO 1.014 (1.002-1.035); SQUAMOUS EPITHELIAL CELL UR AU 0 /HPF (0-6); UROBILINOGEN, URINE AUTO 0.2 mg/dL (0.0-2.0); WBC, URINE AUTO 0 /HPF (0-3)
== END ==
LOC: M SMT 13:23
PROVIDERS: ATTEND Nurse Practitioner Women's Health
DX: R39.198 Other difficulties with micturition (principal)

== ENCOUNTER → 2020-08-22 | Outpatient (CLI) | payer MEDICARE ==
--- NOTE | 2020-08-22 13:31 | REP ---
INDICATION: ACUTE PAIN IN RT HIP AND THIGH. COMPARISON: None. TECHNIQUE: AP view of the pelvis and AP and frogleg views of the right hip are provided. FINDINGS: AP pelvis shows an intact bony pelvic ring. Overall mineralization pattern is normal. There is mild chondrocalcinosis in the symphysis. Vascular calcification is seen. Sacrum and SI joints are intact. No fracture or bony destructive lesion is seen. AP and frogleg views of the right hip demonstrate smooth rounded femoral head intact hip joint space. There is a small dystrophic calcification adjacent to the iliac crest on the right. IMPRESSION: No acute bony abnormality. <Electronically signed by Julio Heath > 08/22/20 [id number]
--- NOTE | 2020-08-22 13:32 | REP ---
INDICATION: ACUTE PAIN IN RT HIP AND THIGH. COMPARISON: READ IN CONJUNCTION WITH HIP SERIES THIS DATE. POSTOPERATIVE RIGHT KNEE 11/10/2016. TECHNIQUE: TWO VIEWS OF THE DISTAL FEMUR TO INCLUDE THE KNEE. FINDINGS: A RIGHT TOTAL KNEE ARTHROPLASTY IS NOTED THE 3 COMPONENTS OF THE PROSTHESIS ARE WELL ALIGNED IN RELATIONSHIP TO THE [place] BONE AND EACH OTHER. THE MID TO DISTAL SHAFT OF THE FEMUR WAS UNREMARKABLE. NO FRACTURE OR FOCAL BONE LESION. PROXIMAL TIBIA AND FIBULA INCLUDED WERE UNREMARKABLE. THERE IS NO ABNORMAL LUCENCY ABOUT THE PROSTHESIS. ANTERIOR AND MEDIAL TO THE THE TIBIA IN THE MID TO DISTAL THIGH IS A 5 MM METALLIC FOREIGN BODY IMPRESSION: 1. NO VISIBLE FRACTURE, FOCAL BONE LESION, AVULSION OR ABNORMALITY INVOLVING THE RIGHT TOTAL KNEE ARTHROPLASTY. 2. A 5 MM SLIGHTLY IRREGULAR METALLIC FOREIGN BODY ANTEROMEDIAL TO THE FEMUR IN THE SOFT TISSUES OF THE DISTAL HALF THIGH. ITS ETIOLOGY UNCERTAIN, LIKEWISE CHRONICITY UNKNOWN. <Electronically signed by Lorne Villaseñor > 08/22/20 [id number]
== END ==
LOC: M RAD 12:59
PROVIDERS: ATTEND Nurse Practitioner Family
DX: M79.651 Pain in right thigh (principal); M25.551 Pain in right hip
CPT/HCPCS: 73502; 73552; G0463

== ENCOUNTER → 2020-08-27 | Outpatient (CLI) | payer MEDICARE ==
--- NOTE | 2020-08-27 12:05 | REP ---
INDICATION: OTHER SPONDYLOSIS WITH RADICULOPATHY, LUMBOSACRAL REGION COMPARISON: None. TECHNIQUE: AP, lateral, bilateral oblique, and coned-down views of the lumbar spine. FINDINGS: Generalized age-related osteopenia is appreciated. Grade 1 anterolisthesis of approximately 6 mm noted at the L4-5 level which is likely chronic. Endplate sclerosis, disc space narrowing, and facet arthropathy noted at the L4-5 and L5-S1 levels. Less pronounced endplate sclerosis and disc space narrowing also suggested at L2-3 and L3-4. No acute fracture/compression injury. IMPRESSION: Moderate multilevel degenerative spondylosis primarily involving the lower lumbar spine along with chronic grade 1 anterolisthesis at the L4-5 level. <Electronically signed by Williams Mcmahon > 08/27/20 [id number]
== END ==
LOC: M RAD 11:27
PROVIDERS: ATTEND Family Medicine
DX: M85.88 Other specified disorders of bone density and structure, other site (principal); M47.27 Other spondylosis with radiculopathy, lumbosacral region
CPT/HCPCS: 72110; G0463

== ENCOUNTER → 2020-11-01 | Outpatient (CLI) | payer MEDICARE ==
--- NOTE | 2020-11-01 12:15 | REP ---
INDICATION: CLAUDICATION COMPARISON: None. TECHNIQUE: Real time lópez scale and Duplex Doppler evaluation of the bilateral lower extremity arterial vasculature using linear high frequency transducer. FINDINGS: López scale and duplex doppler images demonstrate moderate diffuse bilateral plaque. In the right lower extremity diffuse biphasic and triphasic waveforms are noted with normal flow velocities. In the left lower extremity biphasic and triphasic waveforms are noted with monophasic waveform in the anterior and posterior tibial arteries. There is reversal of flow in the distal left anterior tibial artery compatible with a more proximal occlusion. Peak systolic velocities (cm/sec) Common femoral artery: Right 94; Left 85 Profunda femoris: Right 74; Left 46 SFA (proximal): Right 79; Left 96 SFA (mid): Right 71; Left 81 SFA (distal): Right 94; Left 87 Popliteal artery: Right 62; Left 53 SELVIN (prox.): Right 29; Left 23 Tibioperoneal trunk: Right 38; Left 51 BULL GANG WORKER (prox.): Right 56; Left 51 BULL GANG WORKER (distal): Right 46; Left 55 SELVIN (distal): Right 35; Left reversed IMPRESSION: Moderate diffuse plaquing. There is reversal of flow in the distal left anterior tibial artery compatible with a more proximal occlusion of that anterior tibial artery. <Electronically signed by Andres López > 11/01/20 1211
== END ==
LOC: M RAD 10:26
PROVIDERS: ATTEND Family Medicine
DX: I70.213 Atherosclerosis of native arteries of extremities with intermittent claudication, bilateral legs (principal)

== ENCOUNTER → 2020-11-02 | Outpatient (CLI) | payer MEDICARE ==
--- NOTE | 2020-11-02 12:47 | REPVR ---
PROCEDURE INFORMATION: Exam: MR Lumbar Spine Without Contrast Exam date and time: 11/02/2020 11:48 AM Age: 85 years old Clinical indication: Low back pain; Additional info: Radiculopathy, lumbar region TECHNIQUE: Imaging protocol: Multiplanar magnetic resonance images of the lumbar spine without intravenous contrast. COMPARISON: CR Spine. Lumbosacral, complete 08/27/2020 11:44 AM FINDINGS: Vertebrae: Unremarkable. Spinal cord: Normal signal. No cord compression. L1-L2: There is disc desiccation. There is facet arthropathy and ligamentum flavum hypertrophy. L2-L3: There is degenerative disc disease including disc space narrowing and dessication. There is a moderate disc bulge with a small superimposed left foraminal disc herniation. There is moderate left-sided neuroforaminal narrowing. There is facet arthropathy and ligamentum flavum hypertrophy. There is mild spinal canal stenosis. L3-L4: There is degenerative disc disease including disc space narrowing and dessication. There is moderate disc bulging. Disc bulging extends into both neural foramen causing moderate bilateral neural foraminal narrowing, right worse than left. There is a moderate right subarticular disc protrusion that abuts the descending right L4 nerve root. There is compromise of the right lateral recess. There is exuberant bilateral facet arthropathy and ligamentum flavum hypertrophy. There is moderate spinal canal stenosis. L4-L5: There is grade 1 anterior spondylolisthesis at this level. Bilateral spondylolysis is suspected but difficult to confirm. There is degenerative disc disease including disc space narrowing and dessication. There is moderate bilateral neural foraminal narrowing, right worse than left. There is facet arthropathy and ligamentum flavum hypertrophy. There is mild spinal canal stenosis. L5-S1: There is degenerative disc disease including disc space narrowing and dessication. There is mild left-sided neuroforaminal narrowing. Soft tissues: Unremarkable. Kidneys and ureters: There are high signal lesions in both kidneys, possibly cysts, but they are not fully characterized on this MRI exam. Urinary bladder: The bladder wall is markedly trabeculated. The urinary bladder is moderately distended. IMPRESSION: 1. Moderate multilevel degenerative changes causing variable degrees of spinal canal and neuroforaminal narrowing as described above. 2. The bladder wall is markedly trabeculated. The urinary bladder is moderately distended. Please correlate clinically. Electronically signed by: Stan Stevens On 11/02/2020 12:46:44 PM
== END ==
LOC: M RAD 10:42
PROVIDERS: ATTEND Family Medicine
DX: M51.16 Intervertebral disc disorders with radiculopathy, lumbar region (principal); N32.89 Other specified disorders of bladder

== ENCOUNTER → 2021-02-19 | Outpatient (CLI) | payer MEDICARE ==
[2021-02-19 15:29] LABS: BASO # 0.1 10^3/uL (0.0-0.2); BASO % 1.1 % (0.0-1.0); EOS # 0.4 10^3/uL (0.0-0.5); EOS % 5.4 % (0.0-3.0); HEMATOCRIT 42.2 % (42.0-52.0); LYMPH # 1.6 10^3/uL (1.5-5.0); MEAN CORPUSCULAR HEMOGLOBIN 30.5 pg (27.0-33.0); MEAN CORPUSCULAR HGB CONC 33.2 g/dl (32.0-36.5); MEAN CORPUSCULAR VOLUME 91.9 fl (80.0-96.0); MONO # 0.7 10^3/uL (0.0-0.8); NEUTROPHILS # 3.8 10^3/uL (1.5-8.5); PLATELET COUNT, AUTOMATED 212 10^3/uL (150-450); RED BLOOD COUNT 4.59 10^6/uL (4.30-6.10); WHITE BLOOD COUNT 6.5 10^3/uL (4.0-10.0)
[2021-02-19 16:08] LABS: ALBUMIN 3.4 GM/DL (3.2-5.2); ALT/SGPT 27 U/L (12-78); BILIRUBIN,TOTAL 0.6 MG/DL (0.2-1.0); BLOOD UREA NITROGEN 16 MG/DL (7-18); CALCIUM LEVEL 9.1 MG/DL (8.8-10.2); CARBON DIOXIDE LEVEL 25 MEQ/L (21-32); CHLORIDE LEVEL 110 MEQ/L (98-107); FOLATE 16.7 NG/ML; FREE T4 0.69 NG/DL (0.76-1.46); GLOMERULAR FILTRATION RATE > 60.0 (>35); GLUCOSE, FASTING 146 MG/DL (70-100); POTASSIUM SERUM 4.1 MEQ/L (3.5-5.1); SODIUM LEVEL 143 MEQ/L (136-145); THYROID STIMULATING HORMONE 0.949 uIU/ML (0.358-3.740); TOTAL PROTEIN 5.9 GM/DL (6.4-8.2); VITAMIN B12 LEVEL 179 PG/ML
== END ==
LOC: M LAB 14:35
PROVIDERS: ATTEND Student in an Organized Health Care Education/Training Program
DX: R41.3 Other amnesia (principal)
CPT/HCPCS: 36415; 80053; 82607; 82746; 84439; 84443; 85025; G0463

== ENCOUNTER → 2021-03-06 | Outpatient (REF) | payer MEDICARE | LOC: M SFHCPLAZ 10:05 | PROVIDERS: ATTEND Family Medicine | DX: C44.42 Squamous cell carcinoma of skin of scalp and neck (principal); L98.499 Non-pressure chronic ulcer of skin of other sites with unspecified severity ==

== ENCOUNTER → 2021-04-03 | Outpatient (REF) | payer MEDICARE | LOC: M LAB REF 11:15 | PROVIDERS: ATTEND Dermatology | DX: C44.40 Unspecified malignant neoplasm of skin of scalp and neck (principal) ==

== ENCOUNTER 2021-05-07 09:00 | Observation (INO) | payer MEDICARE ==
--- OUTSIDE RECORDS SUMMARY | 2021-05-07 09:05 | CCD ---
Author Author [facility] Organization [facility] Address Unknown Phone Unavailable Care Team Providers Care Lens Molder Name Role Phone Aaron Ball Unavailable PROBLEMS Type Condition ICD9-CM Code BAF10-GL Code Onset Dates Condition S tatus W/U Status Risk SNOMED Code Notes Problem BPH (benign prostatic hyperplasia) N40.0 Activ e confirmed 812962148 Problem Allergic rhinitis, unspecifi ed allergic rhinitis trigger, unspecified rhinitis seasonality J30.9 Active confirmed 97253768 Problem Essential hypertension I10 Active confirmed 31709935 Problem Arthritis M19.90 Active confirmed 0091159 Problem Renal calculi N20.0 Active confirmed 216150 07 Problem Gastroesophageal reflux disease without esophagitis K21.9 Active confirmed 254621026 Problem Gross hematuria R31.0 Active confirmed 1978 48673 Problem Lumbosacral spondylosis with radiculopathy M47.27 Active confirmed 896794412 Problem Skin carcinoma C44.99 Active confirmed 28702 0007 Problem Non-ST elevation myocardial infarction (NSTEMI) in recovery phase I21.4 Active confirmed 651223957 Problem Carcinoma C80.1 Active confirmed 378684467 Problem Idiopathic chronic gout of foot without tophus, 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 confirmed 06413258 Problem Peripheral vascular disease I73.9 Active confirmed 698991350 Problem Claudication I73.9 Active confirmed 2943560 6 Problem Memory loss R41.3 Active confirmed 56640509 Problem Carcinoma, 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 Active confirmed 269995220 ALLERGIES No Known Allergies ENCOUNTERS from 1935 to 2021-04-09 Encounter Location Date Provider Diagnosis [facility] Dermatology [address] [place] [address] [place] [address] Mar, Aaron Олегetta Carcinoma C80.1 IMMUNIZATIONS Vaccine Route Administration Date Status Influenza 6mo & up Fluzone Unknown December 24, 2015 Other s Influenza 6mo & up Fluzone Unknown November 09, 2014 Refus ed SOCIAL HISTORY Sex Assigned At : Social History Observation Description Sex Assigned At Unknown Education: Question Answer Notes Level of Education: High School Audit Question Answer Notes Total Score: 0 Interpretation: Alcohol Education Drug and Alcohol Question Answer Notes Total Score: 0 Interpretation: No problems reported BMI Care Goal Follow-Up Question Answer Notes Above Normal BMI Follow-Up Dietary management educatio n, guidance, and counseling REASON FOR REFERRAL No Information VITAL SIGNS Weight 213 lbs Mar, Weight-kg 96.62 kg Mar, Height 72 in Mar, BMI 28.88 kg/m2 Mar, Blood pressure systolic 128 mm Hg Mar, Blood pressure diastolic 84 mm Hg Mar, MEDICATIONS Medication SIG (Take, Route, Frequency, Duration) Notes Start Da te End Date Status -81 Active Losartan Potassium 100 MG 1 tablet Orally Daily Active Extra Strength Acetaminophen 500 MG 1 capsule as needed Orally Daily Active Omeprazole 20 MG 1 capsule 30 minutes before morning meal Orally Once a day for 90 day(s) Mar, Active Colchicine 0.6 MG 1 tablet Orally for 30 day(s) Active Atorvastatin Calcium 40 MG 1 tablet Orally Once a day for 90 day (s) Apr, Active Clopidogrel Bisulfate 75 MG 1 tablet Orally Once a day for 90 da y(s) Apr, Active Isosorbide Mononitrate 10 MG 1 tablet Orally Twice a day for 30 day(s) 1/2 am 1/2 pm Active Gabapentin 300 MG TAKE 2 CAPSULES BY MOUTH 3 TIMES DAILY for 30 Active Vitamin B12 1000 MCG 1 tablet Orally Once a day for 30 day(s) Jan, Active Cefdinir 300 MG 1 cap Orally bid for 10 day(s) Jun, Not-Taking Finasteride 5 MG 1 tablet Orally Once a day for 90 Active Allopurinol 300 MG 1 tablet Orally Once a day Active Gabapentin 100 MG 1 capsule Orally tid for 30 day(s) 2020 Not-Taking Vitamin B12 1000 MCG 1 tablet Orally Once a day for 30 day(s) Jan, Active Aspirin 81 MG 1 tablet Orally Once a day for 90 day(s) Apr, Active Tamsulosin HCl 0.4 MG 1 capsule 30 minutes after t he same meal each day Orally Once a day for 90 Active Cephalexin 500 MG 1 capsule Orally every 12 hrs for 10 day(s) Mar, Active Colchicine 0.6 MG 1 tablet Orally for 30 day(s) Active predniSONE 20 MG 3 tabs daily for 5 days, the n 2 tabs for 5 days, then 1 tab for 5 days Orally Once a day for 15 days October, Not-Taking Voltaren 1 % Apply 4g to right hip joint Externally every 8 hours as needed for 30 Days Jul, Active PROCEDURES No Information RESULTS No Results REASON FOR VISIT carcinoma, follow up , dressing change MEDICAL (GENERAL) HISTORY Type Description Date Medical History hypertension Medical History bph Medical History gout Medical History copd Medical History herpes Medical History Bilateral hearing aids Medical History LACEY Medical History CAD EDY 03/2020 pLAD, dLAD Medical History Dystolic dysfunction cath 04/1620 grade I, ef 45% Medical History kidney stones Surgical History appendectomy and subsequent lysis of adh esions Surgical History kidney operation as child Surgical History knee 2000 Surgical History cyst removal left neck 10/10 Surgical History choleycystectomy Surgical History arm surgery Surgical History lithotripsy Surgical History right knee replaced 10/2016 Surgical History stent 04/07-04/10/2020 Surgical History cystoscopy 08/2020 Hospitalization History [facility] Goals Section No Information Health Concerns No Information MEDICAL EQUIPMENT No Information MENTAL STATUS No Information FUNCTIONAL STATUS No Information ASSESSMENTS Encounter Date Diagnosis Assessment Notes Treatment Notes Treatm ent Clinical Notes Mar, Carcinoma (ICD-10 - C80.1) Still awaiting definitive diagnosis. Discussed case at length with Mr. Cerda and reviewed reconstruction options to include a large rotation flap wtih likely burow's grafts. Reviewed previous pathology and discussed potential this could represent a number of carcinomas to include atypical fibroxanthoma/pleomorphic dermal sarcoma. He expressed understanding that final diagnosis may change our treatment plan. Dressing changed today with vaseline placed, xeroform dressing, telfa, and hypafix pressure dressing. Will coordinate reconstruction once we have more information. In the interim, will place on abx to help minimize risk of infection. PLAN OF TREATMENT Medication Medication Name Sig Start Date Stop Date Cephalexin 500 MG 1 capsule Orally every 12 hrs for 10 day(s) 13 Mar, 2021 Treatment Notes Assessment Notes Clinical Notes Carcinoma Still awaiting defin itive diagnosis. Discussed case at length with Mr. Cerda and reviewed reconstruction options to include a large rotation flap wtih likely burow's grafts. Reviewed previous pathology and discussed potential this could represent a number of carcinomas to include atypical fibroxanthoma/pleomorphic dermal sarcoma. He expressed understanding that final diagnosis may change our treatment plan. Dressing changed today with vaseline placed, xeroform dressing, telfa, and hypafix pressure dressing. Will coordinate reconstruction once we have more information. In the interim, will place on abx to help minimize risk of infection. Insurance Providers Payer Name Payer Address Payer Phone Insured Name Patient Relati onship to Insured Coverage Start Date Coverage End Date MEDICARE Part A and B [address] [facility] [id number] [place] [facility] OPTIONS [facility] CLAIM [facility] [address] [facility] [phone] L[place] CERDA
--- OUTSIDE RECORDS SUMMARY | 2021-05-07 09:05 | CCD ---
Author Author [facility] Organization [facility] Address Unknown Phone Unavailable Care Team Providers Care Chain Dyer Name Role Phone Aaron Ball Unavailable PROBLEMS ALLERGIES No Known Allergies ENCOUNTERS from 1935 to 2021-04-29 IMMUNIZATIONS SOCIAL HISTORY No smoking Hx information available REASON FOR REFERRAL No Information VITAL SIGNS MEDICATIONS PROCEDURES No Information RESULTS No Results REASON FOR VISIT MEDICAL (GENERAL) HISTORY Goals Section Health Concerns MEDICAL EQUIPMENT No Information MENTAL STATUS FUNCTIONAL STATUS ASSESSMENTS PLAN OF TREATMENT Insurance Providers
--- OUTSIDE RECORDS SUMMARY | 2021-05-07 09:05 | CCD ---
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 confirmed 46114532 Problem Non-ST elevation myocardial infarction (NSTEMI) in recovery phase I21.4 Active confirmed 348788182 Problem Claudication I73.9 Active confirmed 0881385 6 Problem Renal calculi N20.0 Active confirmed 495493 07 Problem Memory loss R41.3 Active confirmed 82229052 Problem Allergic rhinitis, unspecifi ed allergic rhinitis trigger, unspecified rhinitis seasonality J30.9 Active confirmed 49701631 Problem Gastroesophageal reflux disease without esophagitis K21.9 Active confirmed 279268188 Problem Gross hematuria R31.0 Active confirmed 1978 71912 Problem Lumbosacral spondylosis with radiculopathy M47.27 Active confirmed 991475672 Problem Peripheral vascular disease I73.9 Active confirmed 774449636 ALLERGIES No Known Allergies ENCOUNTERS from 1935 to 2021-03-11 Encounter Location Date Provider Diagnosis [facility] [address] [phone] [place] [address] Feb, Ladan Carrillo IMMUNIZATIONS Vaccine Route Administration Date Status Influenza [...] REASON FOR REFERRAL No Information VITAL SIGNS No information MEDICATIONS Medication SIG (Take, Route, Frequency, Duration) Notes Start Da te End Date Status Colchicine 0.6 MG 1 tablet Orally for 30 day(s) Active Gabapentin 300 MG TAKE 2 CAPSULES BY MOUTH 3 TIMES DAILY for 30 Active Extra Strength Acetaminophen 500 MG 1 capsule as needed Orally Daily Active Colchicine 0.6 MG 1 tablet Orally for 30 day(s) Active Clopidogrel Bisulfate 75 MG 1 tablet Orally Once a day for 90 da y(s) Apr, Active Tamsulosin HCl 0.4 MG 1 capsule 30 minutes after t he same meal each day Orally Once a day for 90 Active Voltaren 1 % Apply 4g to right hip joint Externally every 8 hours as needed for 30 Days Jul, Active Gabapentin 100 MG 1 capsule Orally tid for 30 day(s) 2020 Not-Taking Finasteride 5 MG 1 tablet Orally Once a day for 90 Active Cefdinir 300 MG 1 cap Orally bid for 10 day(s) Jun, Not-Taking Aspir-81 Active Isosorbide Mononitrate 10 MG 1 tablet Orally Twice a day for 30 day(s) 1/2 am 1/2 pm Active Allopurinol 300 MG 1 tablet Orally Once a day Active Vitamin B12 1000 MCG 1 tablet Orally Once a day for 30 day(s) Jan, Active Atorvastatin Calcium 40 MG 1 tablet Orally Once a day for 90 day (s) Apr, Active predniSONE 20 MG 3 tabs daily for 5 days, the n 2 tabs for 5 days, then 1 tab for 5 days Orally Once a day for 15 days October, Not-Taking Losartan Potassium 100 MG 1 tablet Orally Daily Active Omeprazole 20 MG 1 capsule 30 minutes before morning meal Orally Once a day for 90 day(s) Mar, Active Aspirin 81 MG 1 tablet Orally Once a day for 90 day(s) Apr, Active Vitamin B12 1000 MCG 1 tablet Orally Once a day for 30 day(s) Jan, Active PROCEDURES No Information RESULTS No Results REASON FOR VISIT REFILL MEDICAL (GENERAL) HISTORY Type Description Date Medical [...] No Information FUNCTIONAL STATUS No Information ASSESSMENTS No Information PLAN OF TREATMENT Medication Medication Name Sig Start Date Stop Date Omeprazole 20 MG 1 capsule 30 minutes before morning meal Orally Once a day for 90 day(s) Mar, Next Appt Details Provider Name:Daniel Henley, 2021-02-26 7 11:00:00 AM, [address] [facility], , [place], [address], Insurance Providers Payer Name Payer Address Payer Phone Insured Name Patient Relati onship to Insured Coverage Start Date Coverage End Date MEDICARE Part A and B [address] [facility] [phone] [place] H[place] [facility] HEALTH CARE OPTIONS [facility] CLAIM DIV [address] [facility] [id number] L[place] HANEY
--- OUTSIDE RECORDS SUMMARY | 2021-05-07 09:05 | CCD ---
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 confirmed 45190308 Problem BPH (benign prostatic hyperplasia) N40.0 Activ e confirmed 363268898 Problem Peripheral vascular disease I73.9 Active confirmed 881936503 Problem Allergic rhinitis, unspecifi ed allergic rhinitis trigger, unspecified rhinitis seasonality J30.9 Active confirmed 53215448 Problem Claudication I73.9 Active confirmed 0289435 6 Problem Essential hypertension I10 Active confirmed 35572745 Problem Non-ST elevation myocardial infarction (NSTEMI) in recovery phase I21.4 Active confirmed 190006399 Problem Gastroesophageal reflux disease without esophagitis K21.9 Active confirmed 351881774 Problem Gross hematuria R31.0 Active confirmed 1978 58197 Problem Lumbosacral spondylosis with radiculopathy M47.27 Active confirmed 056779400 ALLERGIES No Known Allergies ENCOUNTERS from 1935 to 2021-02-11 Encounter Location Date Provider Diagnosis [facility] [address] [facility] [phone] [place] [address] 16 Jan, 2021 Samantha Weiner Skin lesion L98.9 IMMUNIZATIONS Vaccine Route Administration Date Status Influenza [...] n, guidance, and counseling REASON FOR REFERRAL from 1935 to 2021-02-11 Reason scalp skin lesion, question BCC vs SCC vs melanoma Diagnosis 1 Skin lesion (L98.9) Referral Organization [facility] Nathan Referring Provider First Name Samantha Referring Provider Last Name Regine Referring Provider Specialty Family Medicine Referred Provider Sam NursePractioners Referred Provider Specialty Dermatology Referral Priority Stat General Notes Danielle Ruiz 02/11/2021 7:5 5:53 AM > Sent VITAL SIGNS Weight 217.2 lbs Jan, Height 72 in Jan, BMI 29.45 kg/m2 Jan, Heart Rate 67 /min Jan, Respiratory Rate 17 /min Jan, Temperature 98.1 degrees Fahrenheit Jan, Oximetry 95 Jan, Blood pressure systolic 122 mm Hg Jan, Blood pressure diastolic 66 mm Hg Jan, MEDICATIONS Medication SIG (Take, Route, Frequency, Duration) Notes Start Da te End Date Status Tamsulosin HCl 0.4 MG 1 capsule 30 minutes after t he same meal each day Orally Once a day for 90 Active Finasteride 5 MG 1 tablet Orally Once a day for 90 Active Colchicine 0.6 MG 1 tablet Orally for 30 day(s) Active Gabapentin 100 MG 1 capsule Orally tid for 30 day(s) 2020 Not-Taking Allopurinol 300 MG 1 tablet Orally Once a day Active Voltaren 1 % Apply 4g to right hip joint Externally every 8 hours as needed for 30 Days Jul, Active Clopidogrel Bisulfate 75 MG 1 tablet Orally Once a day for 90 da y(s) Apr, Active Extra Strength Acetaminophen 500 MG 1 capsule as needed Orally Daily Active Omeprazole 20 MG 1 capsule 30 minutes before morning meal Orally Once a day for 90 day(s) Mar, Active predniSONE 20 MG 3 tabs daily for 5 days, the n 2 tabs for 5 days, then 1 tab for 5 days Orally Once a day for 15 days October, Not-Taking Colchicine 0.6 MG 1 tablet Orally for 30 day(s) Active Aspirin 81 MG 1 tablet Orally Once a day for 90 day(s) Apr, Active Gabapentin 300 MG TAKE 2 CAPSULES BY MOUTH 3 TIMES DAILY for 30 Active Atorvastatin Calcium 40 MG 1 tablet Orally Once a day for 90 day (s) Apr, Active Isosorbide Mononitrate 10 MG 1 tablet Orally Twice a day for 30 day(s) 1/ am 1/2 pm Active Aspir-81 Active Cefdinir 300 MG 1 cap Orally bid for 10 day(s) Jun, Not-Taking Losartan Potassium 100 MG 1 tablet Orally Daily Active PROCEDURES No Information RESULTS No Results REASON FOR VISIT WOUND ON HEAD MEDICAL (GENERAL) HISTORY Type Description Date Medical [...] 04/07-04/10/2020 Surgical History cystoscopy 08/2020 Hospitalization History [facility] 10[facility] Goals Section No Information Health Concerns No Information MEDICAL EQUIPMENT No Information MENTAL STATUS No Information FUNCTIONAL STATUS No Information ASSESSMENTS Encounter Date Diagnosis Assessment Notes Treatment Notes Treatm ent Clinical Notes Jan, Skin lesion (ICD-10 - L98.9) patient with 3 month h/o scalp lesion slightly larger in size. No s/s's of infection at this time. Concern for BCC or SCC. STAT referral to derm made. Discussed supportive care. If unable to get into derm within next few weeks, will book SDA with Ann Damon for bx. If bx positive will be able to get surgical consult with [facility] derm. Er for new or worsening sxs. Patient educated on diagnosis, medications, treatments, and expected outcomes. Patient educated on risks, SE/AE, benefits, alternatives of regimen. Discussed emergent signs and symptoms and to seek emergency medical attention if they occur. Patient voiced understanding and had all questions answered. PLAN OF TREATMENT Treatment Notes Assessment Notes Clinical Notes Skin lesion patient with 3 month h/o sca lp lesion slightly larger in size. No s/s's of infection at this time. Concern for BCC or SCC. STAT referral to derm made. Discussed supportive care. If unable to get into derm within next few weeks, will book SDA with Ann Damon for bx. If bx positive will be able to get surgical consult with [facility] derm. Er for new or worsening sxs. Patient educated on diagnosis, medications, treatments, and expected outcomes. Patient educated on risks, SE/AE, benefits, alternatives of regimen. Discussed emergent signs and symptoms and to seek emergency medical attention if they occur. Patient voiced understanding and had all questions answered. Referrals Referral Date Details scalp skin lesion, question BCC vs SCC vs melanoma, Practioners Sam Nurse Next Appt Details 2 Weeks Reason: Insurance Providers Payer Name Payer Address Payer Phone Insured Name Patient Relati onship to Insured Coverage Start Date Coverage End Date [employer] HE[employer] CARE OPTIONS [facility] CLAIM DIV [address] [facility] [phone] [place] HANEY MEDICARE Part A and B [address] [facility] [phone] L[place]ISA HANEY
--- OUTSIDE RECORDS SUMMARY | 2021-05-07 09:05 | CCD | Continuity of Care Document ---
Author Author Robert SPAULDING M.D. Organization Unknown Address [address] [place] [address] Phone [phone] Care Team Providers Care Dictating Machine Typist Name Role Phone Ladan Carrillo M.D. AUTM [phone] Problems Active Problems Provider Date Memory impairment Stacy Spaulding M.D. Onset: 04/17/2021 Hallucinations Stacy Spaulding M.D. Onset: 04/17/2021 Social History Type Date Description Comments Sex Unknown Allergies and adverse reactions Description No Known Drug Allergies Medications Active Medications SIG Qnty Indications Ordering Provide r Date Memantine HCL 5mg Tablets 1 by mouth twice daily 60tabs Stacy Spaulding M.D. 04/17/2021 Immunizations Description No Information Available Vital Signs Description No Information Available Results Description No Information Available Procedures Date Code Description Status 04/17/2021 61165 Assessment/Care Planning For Pat ient W/Cognitive Impairment Completed Medical Devices Description No Information Available Encounters Type Date Location Provider Dx Diagnosis Office Visit 04/17/2021 1:30p Main office - [place] Stacy Spaulding M.D. G47.51 Confusional arousals R41.3 Other amnesia R44.1 Visual hallucinations Assessments Date Code Description Provider 04/17/2021 G47.51 Confusional arousals Stacy barragan M.D. 04/17/2021 R41.3 Other amnesia Jh Motley 04/17/2021 R44.1 Visual hallucinations Stacy andrade M.D. Plan of Treatment Future Appointment(s):* 04/19/2021 6:00 pm - MRI at Main office - [place] * 05/27/2021 2:30 pm - EEG at [facility] * 06/06/2021 10:30 am - Flora Lovell P.A.-C. at [facility] Functional Status Description No Information Available Mental Status Description No Information Available Referrals Description No Information Available
--- OUTSIDE RECORDS SUMMARY | 2021-05-07 09:05 | CCD ---
Author Author [facility] Organization [facility] Address Unknown Phone Unavailable Care Team Providers Care Stock Holder Name Role Phone Daniel Henley Unavailable PROBLEMS Type Condition ICD9-CM Code [id number] Code Onset Dates Condition S tatus W/U Status Risk SNOMED Code Notes Problem Essential hypertension I10 Active confirmed 91244403 Problem BPH (benign prostatic hyperplasia) N40.0 Activ e confirmed 706333424 Problem Renal calculi N20.0 Active confirmed 810367 07 Problem Allergic rhinitis, unspecifi ed allergic rhinitis trigger, unspecified rhinitis seasonality J30.9 Active confirmed 38045961 Problem Non-ST elevation myocardial infarction (NSTEMI) in recovery phase I21.4 Active confirmed 958989139 Problem Gastroesophageal reflux disease without esophagitis K21.9 Active confirmed 840231486 Problem Gross hematuria R31.0 Active confirmed 1979 22481 Problem Carcinoma, 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 Active confirmed 157028595 Problem Idiopathic chronic gout of foot without tophus, 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 confirmed 53291662 Problem Skin carcinoma C44.99 Active confirmed 30648 0007 Problem Arthritis M19.90 Active confirmed 2262995 Problem Lumbosacral spondylosis with radiculopathy M47.27 Active confirmed 677344959 Problem Peripheral vascular disease I73.9 Active confirmed 672867930 Problem Claudication I73.9 Active confirmed 8288463 6 Problem Memory loss R41.3 Active confirmed 70357465 ALLERGIES No Known Allergies ENCOUNTERS from 1935 to 2021-04-08 Encounter Location Date Provider Diagnosis [address] [phone] [place] [address] Mar, Daniel Henley Carcinoma, 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 IMMUNIZATIONS Vaccine Route Administration Date Status [...] counseling REASON FOR REFERRAL from 1935 to 2021-04-08 Reason 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 Cerda is an 85 year old man with several months history of an ulcerated lesion on his R parietal scalp that has continued to grow quite large. It was bx with two punch samples and those returned "poorly differentiated carcinoma." I spoke directly with pathology and they did special stains, but were only able to rule things out, not in. Please evaluate and treat on an urgent basis. VITAL SIGNS Weight 212.6 lbs Mar, Weight-kg 96.43 kg Mar, Height 72 in Mar, BMI 28.83 kg/m2 Mar, Heart Rate 97 /min Mar, Respiratory Rate 18 /min Mar, Temperature 97.8 degrees Fahrenheit Mar, Oximetry 97 Mar, Blood pressure systolic 132 mm Hg Mar, Blood pressure diastolic 80 mm Hg Mar, MEDICATIONS Medication SIG (Take, Route, Frequency, Duration) Notes Start Da te End Date Status Aspir-81 Active Losartan Potassium 100 MG 1 tablet [...] Orally tid for 30 day(s) 2020 Not-Taking Aspirin 81 MG 1 tablet Orally Once a day for 90 day(s) Apr, Active Tamsulosin HCl 0.4 MG 1 capsule 30 minutes after t he same meal each day Orally Once a day for 90 Active Vitamin B12 1000 MCG 1 tablet Orally Once a day for 30 day(s) Jan, Active Colchicine 0.6 MG 1 tablet Orally [...] Information RESULTS No Results REASON FOR VISIT follow-up path and healing MEDICAL (GENERAL) HISTORY Type Description Date Medical [...] Treatment Notes Treatm ent Clinical Notes Mar, Carcinoma, undifferentiated (ICD-10 - C80.1) Discussed the results with Mr. Cerda and his . They understand that he does have a cancer, but we are not certain from where. I queried them with regards to additional symptoms including: lymphadenopathy, weight loss, fevers/sweats, unusual joint aches and pains, hematuria, hematochezia and melena and all were denied. They do note that he has an enlarged prostate and a slower urinary stream. I am going to order PSA and CA-125 to see if these serum tests may help guide our look for a primary source of his tumor. It certainly may still be a skin primary. I have initiated an urgent referral to Dr. Ball. I communicated directly with him about this. PLAN OF TREATMENT Treatment Notes Assessment Notes Clinical Notes Carcinoma, undifferentiated Discussed th e results with Mr. Cerda and his . They understand that he does have a cancer, but we are not certain from where. I queried them with regards to additional symptoms including: lymphadenopathy, weight loss, fevers/sweats, unusual joint aches and pains, hematuria, hematochezia and melena and all were denied. They do note that he has an enlarged prostate and a slower urinary stream. I am going to order PSA and CA- 125 to see if these serum tests may help guide our look for a primary source of his tumor. It certainly may still be a skin primary. I have initiated an urgent referral to Dr. Ball. I communicated directly with him about this. 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
--- OUTSIDE RECORDS SUMMARY | 2021-05-07 09:05 | CCD ---
Author Author [facility] Organization [facility] Address Unknown Phone Unavailable Care Team Providers Care Warehouse Receiving Supervisor Name Role Phone Aaron Ball Unavailable PROBLEMS Type Condition ICD9-CM Code UBH11-ZW Code Onset Dates Condition S tatus W/U Status Risk SNOMED Code Notes Problem Essential hypertension I10 Active confirmed 76574480 Problem BPH (benign prostatic hyperplasia) N40.0 Activ e confirmed 728450018 Problem Renal calculi N20.0 Active confirmed 079532 07 Problem Allergic rhinitis, unspecifi ed allergic rhinitis trigger, unspecified rhinitis seasonality J30.9 Active confirmed 98733895 Problem Non-ST elevation myocardial infarction (NSTEMI) in recovery phase I21.4 Active confirmed 939879760 Problem Gastroesophageal reflux disease without esophagitis K21.9 Active confirmed 208232834 Problem Gross hematuria R31.0 Active confirmed 1979 31076 Problem Carcinoma, 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 Active confirmed 785317711 Problem Idiopathic chronic gout of foot without tophus, 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 [phone] [place] [address] Mar, Aaron Ball Skin carcinoma C44.99 IMMUNIZATIONS Vaccine Route Administration Date Status Influenza [...] FOR REFERRAL No Information VITAL SIGNS Weight 213.6 lbs Mar, Weight-kg 96.89 kg Mar, Height 72 in Mar, BMI 28.97 kg/m2 Mar, Blood pressure systolic 124 mm Hg Mar, Blood pressure diastolic 82 mm Hg Mar, MEDICATIONS Medication SIG (Take, Route, Frequency, Duration) Notes Start Da te End Date Status Vitamin B12 1000 MCG 1 tablet Orally Once a day for 30 day(s) Jan, Active Gabapentin 300 MG TAKE 2 CAPSULES BY MOUTH 3 TIMES DAILY for 30 Active Omeprazole 20 MG 1 capsule 30 minutes before morning meal Orally Once a day for 90 day(s) Mar, Active Finasteride 5 MG 1 tablet Orally [...] a day for 15 days October, Not-Taking Isosorbide Mononitrate 10 MG 1 tablet Orally Twice a day for 30 day(s) 1/2 am 1/2 pm Active Colchicine 0.6 MG 1 tablet Orally for 30 day(s) Active Aspir-81 Active Losartan Potassium 100 MG 1 tablet Orally Daily Active Cefdinir 300 MG 1 cap Orally bid for 10 day(s) Jun, Not-Taking Aspirin 81 MG 1 tablet Orally Once a day for 90 day(s) Apr, Active Clopidogrel Bisulfate 75 MG 1 [...] 1 capsule Orally tid for 30 day(s) 29 Ap r, 2020 Not-Taking Extra Strength Acetaminophen 500 MG 1 capsule as needed Orally Daily Active Allopurinol 300 MG 1 tablet Orally Once a day Active Colchicine 0.6 MG 1 tablet Orally for 30 day(s) Active PROCEDURES from 1935 to 2021-04-07 Procedure Date Ordered Result Body Site Med: Derm Lidocaine with Epinephrine Inj ection 1% with 2 ml sodium bicarbonate Intradermally to marked areas 2021-04-03 N/A RESULTS No Results REASON FOR VISIT Poorly differentiated carcinoma, Right parietal scalp MEDICAL (GENERAL) HISTORY Type Description Date Medical [...] 04/07-04/10/2020 Surgical History cystoscopy 08/2020 Hospitalization History [facility] 10[facility] [facility]2020 Goals Section No Information Health Concerns No Information MEDICAL EQUIPMENT No Information MENTAL STATUS No Information FUNCTIONAL STATUS No Information ASSESSMENTS Encounter Date Diagnosis Assessment Notes Treatment Notes Treatm ent Clinical Notes Mar, Skin carcinoma (ICD-10 - C44.99) Given the complex nature of this case, pathology was extensively reviewed and I personally called Dr. Rodriguez to discuss the pathology. We will excise the tumor for margin assessment and IHC for diagnosis with a plan to repair on Wednesday pending definitive diagnosis. Procedure: Excision. [place] protocol was followed in compliance with [facility] standards. The site was marked and anesthetized with lidocaine 1% with epinephrine. The area was then prepped and draped in a clean fashion. The lesion was excised with margins as below. The lesion was or was not tagged as indicated below. Hemostasis was obtained using hyfrecation. Estimated blood loss was 1mL. Once tissue was removed, then defect was then repaired as below. Tagging: [ ] No [ x ] 1200 Initial size: [ 3.2 x 3.2 ]cm Margins: [ 0.5 ]cm Size of lesion with margins : [ 4.2 x 4.2 ]cm Vaseline, xeroform, and surgifoam were secured to the wound and patient was discharged with careful instructions on bleeding management and activity levels. PLAN OF TREATMENT Treatment Notes Assessment Notes Clinical Notes Skin carcinoma Given the complex na ture of this case, pathology was extensively reviewed and I personally called Dr. Rodriguez to discuss the pathology. We will excise the tumor for margin assessment and IHC for diagnosis with a plan to repair on Wednesday pending definitive diagnosis.Procedure: Excision. [place] protocol was followed in compliance with [facility] standards. The site was marked and anesthetized with lidocaine 1% with epinephrine. The area was then prepped and draped in a clean fashion. The lesion was excised with margins as below. The lesion was or was not tagged as indicated below. Hemos tasis was obtained using hyfrecation. Estimated blood loss was 1mL. Once tissue was removed, then defect was then repaired as below.Tagging: [ ] No [ x ] 1200Initial size: [ 3.2 x 3.2 ]cmMargins: [ 0.5 ]cmSize of lesion with margins : [ 4.2 x 4.2 ]cmVaseline, xeroform, and surgifoam were secured to the wound and patient was discharged with careful instructions on bleeding management and activity levels. Next Appt Details Wednesday Reason: Provider Name:Aaron Ball, 04-08 02:45:00 PM, [address] [place] [address], , [place], [place], [facility], Insurance Providers Payer Name Payer Address Payer Phone Insured Name Patient Relati onship to Insured Coverage Start Date Coverage End Date [employer] [facility] CLAIM DIV [address] [facility] [id number] [place] CERDA MEDICARE Part A and B [address] [facility] [phone] L[place]ISA CERDA self
--- OUTSIDE RECORDS SUMMARY | 2021-05-07 09:05 | CCD ---
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 confirmed 54493190 Problem Non-ST elevation myocardial infarction (NSTEMI) in recovery phase I21.4 Active confirmed 718153180 Problem Claudication I73.9 Active confirmed 9715538 6 Problem Renal calculi N20.0 Active confirmed 329041 07 Problem Memory loss R41.3 Active confirmed 73117260 Problem Allergic rhinitis, unspecifi ed allergic rhinitis trigger, unspecified rhinitis seasonality J30.9 Active confirmed 48673387 Problem Gastroesophageal reflux disease without esophagitis K21.9 Active confirmed 111114934 Problem Gross hematuria R31.0 Active confirmed 1978 45528 Problem Lumbosacral spondylosis with radiculopathy M47.27 Active confirmed 046558079 Problem Peripheral vascular disease I73.9 Active confirmed 846000947 ALLERGIES No Known Allergies ENCOUNTERS from 1935 to 2021-02-20 Encounter Location Date Provider Diagnosis [facility] [address] [phone] [place] [address] Jan, Ladan Carrillo Vitamin B12 deficiency E53.8 IMMUNIZATIONS Vaccine Route Administration Date Status Influenza [...] Notes Start Da te End Date Status predniSONE 20 MG 3 tabs daily for 5 days, the n 2 tabs for 5 days, then 1 tab for 5 days Orally Once a day for 15 days October, Not-Taking Colchicine 0.6 MG 1 tablet Orally for 30 day(s) Active Losartan Potassium 100 MG 1 tablet Orally Daily Active Voltaren 1 % Apply 4g to right hip joint Externally every 8 hours as needed for 30 Days Jul, Active Extra Strength Acetaminophen 500 MG 1 capsule as needed Orally Daily Active Colchicine 0.6 MG 1 tablet Orally for 30 day(s) Active Finasteride 5 MG 1 tablet Orally Once a day for 90 Active Gabapentin 300 MG TAKE 2 CAPSULES BY MOUTH 3 TIMES DAILY for 30 Active Aspir-81 Active Isosorbide Mononitrate 10 MG 1 tablet Orally Twice a day for 30 day(s) 1/2 am 1/2 pm Active Aspirin 81 MG 1 tablet Orally Once a day for 90 day(s) Apr, Active Allopurinol 300 MG 1 tablet Orally Once a day Active Omeprazole 20 MG 1 capsule 30 minutes before morning meal Orally Once a day for 90 day(s) Mar, Active Atorvastatin Calcium 40 MG 1 tablet Orally Once a day for 90 day (s) Apr, Active Vitamin B12 1000 MCG 1 tablet Orally Once a day for 30 day(s) Jan, Active Cefdinir 300 MG 1 cap Orally bid for 10 day(s) Jun, Not-Taking Tamsulosin HCl 0.4 MG 1 capsule 30 minutes after t he same meal each day Orally Once a day for 90 Active Vitamin B12 1000 MCG 1 tablet Orally Once a day for 30 day(s) Jan, Active Clopidogrel Bisulfate 75 MG 1 tablet Orally Once a day for 90 da y(s) Apr, Active Gabapentin 100 MG 1 capsule Orally tid for 30 day(s) 29 Ap r, 2020 Not-Taking PROCEDURES No Information RESULTS No Results REASON FOR VISIT lab results MEDICAL (GENERAL) HISTORY Type Description Date Medical [...] Treatment Notes Treatm ent Clinical Notes Jan, Vitamin B12 deficiency (ICD-10 - E53.8) PLAN OF TREATMENT Medication Medication Name Sig Start Date Stop Date Vitamin B12 1000 MCG 1 tablet Orally Once a day for 30 day(s) Jan, Vitamin B12 1000 MCG 1 tablet Orally Once a day for 30 day(s) Jan, Insurance Providers Payer Name Payer Address Payer Phone Insured Name Patient Relati onship to Insured Coverage Start Date Coverage End Date MEDICARE Part A and B [address] [facility] [phone] [facility] OPTIONS [facility] CLAIM DIV [address] [facility] [id number] LOUISA CERDA
--- OUTSIDE RECORDS SUMMARY | 2021-05-07 09:05 | CCD | Continuity of Care Document ---
Author Author Robert SPAULDING M.D. Organization Unknown Address [address] [place] [address] Phone [phone] Care Team Providers Care Telephone Exchange Operator Name Role Phone Ladan Carrillo M.D. AUTM [phone] Problems Active Problems Provider Date Memory impairment [...] Information Available Procedures Date Code Description Status 04/19/2021 50945 MRI Brain W/O Contrast Completed 04/19/2021 27077 MRI Brain W/O Contrast Completed 04/17/2021 26336 Assessment/Care Planning For Pat ient W/Cognitive Impairment Completed Medical Devices Description No Information Available Encounters Type Date Location Provider Dx Diagnosis Office Visit 04/17/2021 1:30p Main office - [place] Stacy Spaulding M.D. G47.51 Confusional arousals R41.3 Other amnesia R44.1 Visual hallucinations Assessments Date Code Description Provider 04/19/2021 R41.3 Other amnesia Anil Kohli 04/19/2021 R41.3 Other amnesia MRI 04/17/2021 G47.51 Confusional arousals Stacy barragan M.D. 04/17/2021 R41.3 Other amnesia Jh Motley 04/17/2021 R44.1 Visual hallucinations Stacy andrade M.D. Plan of Treatment Future Appointment(s):* 05/27/2021 2:30 pm - EEG at [facility] * 06/06/2021 10:30 am - Flora Lovell P.A.-C. at [facility] Functional Status Description No Information Available Mental Status Description No Information Available Referrals Description No Information Available
--- OUTSIDE RECORDS SUMMARY | 2021-05-07 09:05 | CCD ---
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 confirmed 07146958 Problem BPH (benign prostatic hyperplasia) N40.0 Activ e confirmed 053235826 Problem Peripheral vascular disease I73.9 Active confirmed 064077247 Problem Allergic rhinitis, unspecifi ed allergic rhinitis trigger, unspecified rhinitis seasonality J30.9 Active confirmed 75813812 Problem Claudication I73.9 Active confirmed 3774351 6 Problem Essential hypertension I10 Active confirmed 70574433 Problem Non-ST elevation myocardial infarction (NSTEMI) in recovery phase I21.4 Active confirmed 942850403 Problem Gastroesophageal reflux disease without esophagitis K21.9 Active confirmed 375845350 Problem Gross hematuria R31.0 Active confirmed 1978 96082 Problem Lumbosacral spondylosis with radiculopathy M47.27 Active confirmed 134559933 ALLERGIES No Known Allergies ENCOUNTERS from 1935 to 2021-02-18 Encounter Location Date Provider Diagnosis [facility] [address] [facility] [phone] [place] [address] Jan, Ladan Carrillo IMMUNIZATIONS Vaccine Route Administration Date [...] 30 day(s) 1/2 am 1/2 pm Active Aspir-81 Active Cefdinir 300 MG 1 cap Orally bid for 10 day(s) Jun, Not-Taking Losartan Potassium 100 MG 1 tablet Orally Daily Active PROCEDURES No Information RESULTS No Results REASON FOR VISIT med refill and referral request MEDICAL (GENERAL) HISTORY Type Description Date Medical [...] Information ASSESSMENTS No Information PLAN OF TREATMENT Next Appt Details Provider Name:Ladan Carrillo, 2021-02-19 11:30:00 AM, [address] [facility], , [place], [address], Insurance Providers Payer Name Payer Address Payer Phone Insured Name Patient Relati onship to Insured Coverage Start Date Coverage End Date MEDICARE Part A and B [address] [facility] [phone] [place] HANEY [facility] [address] [facility] [id number] L[place] HANEY
--- OUTSIDE RECORDS SUMMARY | 2021-05-07 09:05 | CCD ---
Author Author [facility] Organization [facility] Address Unknown Phone Unavailable Care Team Providers Care Avionics Supervisor Name Role Phone Daniel Henley Unavailable PROBLEMS Type Condition ICD9-CM Code [id number] Code Onset Dates Condition S tatus W/U Status Risk SNOMED Code Notes Problem BPH (benign prostatic hyperplasia) N40.0 Activ e confirmed 784791609 Problem Allergic rhinitis, unspecifi ed allergic rhinitis trigger, unspecified rhinitis seasonality J30.9 Active confirmed 72364417 Problem Essential hypertension I10 Active confirmed 90641960 Problem Idiopathic chronic gout of foot without tophus, 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 confirmed 30154206 Problem Non-ST elevation myocardial infarction (NSTEMI) in recovery phase I21.4 Active confirmed 809167966 Problem Gastroesophageal reflux disease without esophagitis K21.9 Active confirmed 411430862 Problem Memory loss R41.3 Active confirmed 54910028 Problem Arthritis M19.90 Active confirmed 2320381 Problem Carcinoma, 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 Active confirmed 751131836 Problem Renal calculi N20.0 Active confirmed 779301 07 Problem Gross hematuria R31.0 Active confirmed 1979 50070 Problem Lumbosacral spondylosis with radiculopathy M47.27 Active confirmed 545856251 Problem Peripheral vascular disease I73.9 Active confirmed 488493621 Problem Claudication I73.9 Active confirmed 2894268 6 ALLERGIES No Known Allergies ENCOUNTERS from 1935 to 2021-04-01 Encounter Location Date Provider Diagnosis [facility] [address] [facility] [phone] [place] [address] Feb, Daniel Henley IMMUNIZATIONS Vaccine Route Administration Date Status Influenza [...] a day for 15 days October, Not-Taking Allopurinol 300 MG 1 tablet Orally Once a day Active Aspirin 81 MG 1 tablet Orally Once a day for 90 day(s) Apr, Active Voltaren 1 % Apply 4g to right hip joint Externally every 8 hours as needed for 30 Days Jul, Active Omeprazole 20 MG 1 capsule 30 minutes before morning meal Orally Once a day for 90 day(s) Mar, Active Aspir-81 Active Atorvastatin Calcium 40 MG 1 tablet [...] a day for 30 day(s) Jan, Active Finasteride 5 MG 1 tablet Orally Once a day for 90 Active Losartan Potassium 100 MG 1 tablet Orally Daily Active Colchicine 0.6 MG 1 tablet Orally for 30 day(s) Active Tamsulosin HCl 0.4 MG 1 capsule 30 minutes after t he same meal each day Orally Once a day for 90 Active Clopidogrel Bisulfate 75 MG 1 tablet Orally Once a day for 90 da y(s) Apr, Active Cefdinir 300 MG 1 cap Orally bid for 10 day(s) Jun, Not-Taking Vitamin B12 1000 MCG 1 tablet Orally Once a day for 30 day(s) Jan, Active Colchicine 0.6 MG 1 tablet Orally for 30 day(s) Active Extra Strength Acetaminophen 500 MG 1 capsule as needed Orally Daily Active Gabapentin 100 MG 1 capsule Orally tid for 30 day(s) 29 Ap r, 2020 Not-Taking PROCEDURES No Information RESULTS No Results REASON FOR VISIT Results MEDICAL (GENERAL) HISTORY Type Description Date Medical [...] PLAN OF TREATMENT Next Appt Details Provider Name:Aaron Ball 04-03 07:15:00 AM, [address] [place], [place] [address], [place], [place], [address] [place], [place] [phone] Provider Name:Aaron Ball 04-04 09:15:00 AM, [address] [place], [place] [address] [place] [address], [address] [place], [place] [phone] Insurance Providers Payer Name Payer Address Payer Phone Insured Name Patient Relati onship to Insured Coverage Start Date Coverage End Date [employer] OPTIONS [facility] CLAIM DIV [address] [facility] [phone] [place] C[place] MEDICARE Part A and B [address] [facility] [phone] [place] CERDA
--- OUTSIDE RECORDS SUMMARY | 2021-05-07 09:05 | CCD ---
Author Author [facility] Organization [facility] Address Unknown Phone Unavailable Care Team Providers Care Lead Software Qa Engineer Name Role Phone Agnieszka Carrilloell Unavailable PROBLEMS Type Condition ICD9-CM Code [id number] Code Onset Dates Condition S tatus W/U Status Risk SNOMED Code Notes Problem Essential hypertension I10 Active confirmed 58706290 Problem BPH (benign prostatic hyperplasia) N40.0 Activ e confirmed 019760578 Problem Arthritis M19.90 Active confirmed 0957061 Problem Idiopathic chronic gout of foot without tophus, 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 confirmed 05727733 Problem Non-ST elevation myocardial infarction (NSTEMI) in recovery phase I21.4 Active confirmed 330506580 Problem Claudication I73.9 Active confirmed 8024774 6 Problem Renal calculi N20.0 Active confirmed 195368 07 Problem Memory loss R41.3 Active confirmed 80112589 Problem Allergic rhinitis, unspecifi ed allergic rhinitis trigger, unspecified rhinitis seasonality J30.9 Active confirmed 90912975 Problem Gastroesophageal reflux disease without esophagitis K21.9 Active confirmed 026856816 Problem Gross hematuria R31.0 Active confirmed 1978 00788 Problem Lumbosacral spondylosis with radiculopathy M47.27 Active confirmed 333127615 Problem Peripheral vascular disease I73.9 Active confirmed 922429106 ALLERGIES No Known Allergies ENCOUNTERS from 1935 to 2021-03-04 Encounter Location Date Provider Diagnosis [facility] [address] [phone] [place] [address] Feb, Ladan Carrillo IMMUNIZATIONS Vaccine Route Administration [...] Orally tid for 30 day(s) 29 Ap , 2020 Not-Taking PROCEDURES No Information RESULTS No Results REASON FOR VISIT appt for lesion biopsy MEDICAL (GENERAL) HISTORY Type Description Date Medical [...] Once a day for 30 day(s) Jan, Next Appt Details Provider Name:Daniel Henley, 2021-02-26 5 09:00:00 AM, [address] [facility], , [place], [address], Insurance Providers Payer Name Payer Address Payer Phone Insured Name Patient Relati onship to Insured Coverage Start Date Coverage End Date [employer] C[employer] OPTIONS [facility] CLAIM DIV [address] [facility] [address] [place] MEDICARE Part A and B [address] [facility] [address] [phone] [place] HANEY
--- OUTSIDE RECORDS SUMMARY | 2021-05-07 09:05 | CCD ---
Author Author [facility] Organization [facility] Address Unknown Phone Unavailable Care Team Providers Care Cargo Surveyor Name Role Phone Aaron Ball Unavailable PROBLEMS Type Condition ICD9-CM Code SKG91-WW Code Onset Dates Condition S tatus W/U Status Risk SNOMED Code Notes Problem BPH (benign prostatic hyperplasia) N40.0 Activ e confirmed 204758631 Problem Allergic rhinitis, unspecifi ed allergic rhinitis trigger, unspecified rhinitis seasonality J30.9 Active confirmed 01387468 Problem Essential hypertension I10 Active confirmed 79991374 Problem Arthritis M19.90 Active confirmed 9826275 Problem Renal calculi N20.0 Active confirmed 598941 07 Problem Gastroesophageal reflux disease without esophagitis K21.9 Active confirmed 881293739 Problem Gross hematuria R31.0 Active confirmed 1978 99589 Problem Lumbosacral spondylosis with radiculopathy M47.27 Active confirmed 557272403 Problem Skin carcinoma C44.99 Active confirmed 72611 0007 Problem Non-ST elevation myocardial infarction (NSTEMI) in recovery phase I21.4 Active confirmed 760210283 Problem Carcinoma C80.1 Active confirmed 935187960 Problem Idiopathic chronic gout of foot without tophus, 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 confirmed 56573351 Problem Peripheral vascular disease I73.9 Active confirmed 588580756 Problem Claudication I73.9 Active confirmed 9810061 6 Problem Memory loss R41.3 Active confirmed 77806302 Problem Carcinoma, 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 Active confirmed 306534247 ALLERGIES No Known Allergies ENCOUNTERS from 1935 to 2021-04-15 Encounter Location Date Provider Diagnosis [facility] Dermatology [address] [place] [address] [place] [address] Mar, Aaron Ball IMMUNIZATIONS Vaccine Route Administration Date Status Influenza [...] Notes Start Da te End Date Status Voltaren 1 % Apply 4g to right hip joint Externally every 8 hours as needed for 30 Days Jul, Active Clopidogrel Bisulfate 75 MG 1 tablet Orally Once a day for 90 da y(s) Apr, Active Cefdinir 300 MG 1 cap Orally bid for 10 day(s) Jun, Not-Taking Vitamin B12 1000 MCG 1 tablet Orally Once a day for 30 day(s) Jan, Active Losartan Potassium 100 MG 1 tablet Orally Daily Active Omeprazole 20 MG 1 capsule 30 minutes before morning meal Orally Once a day for 90 day(s) Mar, Active Finasteride 5 MG 1 tablet Orally Once a day for 90 Active Cephalexin 500 MG 1 capsule Orally every 12 hrs for 10 day(s) Mar, Active Aspirin 81 MG 1 tablet Orally Once a day for 90 day(s) Apr, Active Allopurinol 300 MG 1 tablet Orally Once a day Active Gabapentin 300 MG TAKE 2 CAPSULES BY MOUTH 3 TIMES DAILY for 30 Active Isosorbide Mononitrate 10 MG 1 tablet Orally Twice a day for 30 day(s) 1/2 am 1/2 pm Active Atorvastatin Calcium 40 MG 1 tablet Orally Once a day for 90 day (s) Apr, Active Colchicine 0.6 MG 1 tablet Orally for 30 day(s) Active predniSONE 20 MG 3 tabs daily for 5 days, the n 2 tabs for 5 days, then 1 tab for 5 days Orally Once a day for 15 days October, Not-Taking Colchicine 0.6 MG 1 tablet Orally for 30 day(s) Active Aspir-81 Active Gabapentin 100 MG 1 capsule Orally tid for 30 day(s) 2020 Not-Taking Tamsulosin HCl 0.4 MG 1 capsule 30 minutes after t he same meal each day Orally Once a day for 90 Active Vitamin B12 1000 MCG 1 tablet Orally Once a day for 30 day(s) Jan, Active Extra Strength Acetaminophen 500 MG 1 capsule as needed Orally Daily Active PROCEDURES No Information RESULTS No Results REASON FOR VISIT results MEDICAL (GENERAL) HISTORY Type Description Date [...] OF TREATMENT Next Appt Details Provider Name:Aaron Ball, 04-21 01:00:00 PM, [address] [place] [address], [place], [place], [facility], Insurance Providers Payer Name Payer Address Payer Phone Insured Name Patient Relati onship to Insured Coverage Start Date Coverage End Date MEDICARE Part A and B [address] [facility] [phone] [place] CER[place] [facility] C[facility] OPTIONS [facility] CLAIM [facility] [address] [facility] [phone] [place] ECRDA
--- OUTSIDE RECORDS SUMMARY | 2021-05-07 09:05 | CCD | Continuity of Care Document ---
Author Author [facility] Organization Unknown Address [address] [place] [address] Phone [phone] Care Team Providers Care Fish Hatchery Superintendent Name Role Phone Ladan Carrillo M.D. [facility] [phone] Problems Active Problems Provider Date Memory impairment [...] Available Procedures Date Code Description Status 04/19/2021 40930 MRI Brain W/O Contrast Completed 04/19/2021 47716 MRI Brain W/O Contrast Completed 04/17/2021 83032 Assessment/Care Planning For Pat ient W/Cognitive Impairment Completed Medical Devices Description No Information Available Encounters Type Date Location Provider Dx Diagnosis Office Visit 04/17/2021 1:30p Main office - Carmelceci Spaulding M.D. G47.51 Confusional arousals R41.3 Other amnesia R44.1 Visual hallucinations Assessments Date Code Description Provider 04/19/2021 R41.3 Other amnesia Anil Kohli 04/19/2021 R41.3 Other amnesia MRI 04/17/2021 G47.51 Confusional arousals Stacy barragan M.D. 04/17/2021 R41.3 Other amnesia Jh Motley 04/17/2021 R44.1 Visual hallucinations Stacy andrade M.D. Plan of Treatment Future Appointment(s):* 05/27/2021 2:30 pm - EEG at [facility] * 06/06/2021 10:30 am - Flora Lovell P.A.-C. at [facility] Functional Status Description No Information Available Mental Status Description No Information Available Referrals Description No Information Available
--- OUTSIDE RECORDS SUMMARY | 2021-05-07 09:05 | CCD ---
Author Author [facility] Organization [facility] Address Unknown Phone Unavailable Care Team Providers Care Biological Engineer Name Role Phone Daniel Henley Unavailable PROBLEMS Type Condition ICD9-CM Code SMS91-RW Code Onset Dates Condition S tatus W/U Status Risk SNOMED Code Notes Problem Essential hypertension I10 Active confirmed 39620909 Problem BPH (benign prostatic hyperplasia) N40.0 Activ e confirmed 622788658 Problem Renal calculi N20.0 Active confirmed 027153 07 Problem Allergic rhinitis, unspecifi ed allergic rhinitis trigger, unspecified rhinitis seasonality J30.9 Active confirmed 52277334 Problem Non-ST elevation myocardial infarction (NSTEMI) in recovery phase I21.4 Active confirmed 705862530 Problem Gastroesophageal reflux disease without esophagitis K21.9 Active confirmed 795888937 Problem Gross hematuria R31.0 Active confirmed 1979 14802 Problem Carcinoma, 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 Active confirmed 586132559 Problem Idiopathic chronic gout of foot without tophus, 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 confirmed 60985576 Problem Skin carcinoma C44.99 Active confirmed 50791 0007 Problem Arthritis M19.90 Active confirmed 9604421 Problem Lumbosacral spondylosis with radiculopathy M47.27 Active confirmed 662256266 Problem Peripheral vascular disease I73.9 Active confirmed 081954340 Problem Claudication I73.9 Active confirmed 1261106 6 Problem Memory loss R41.3 Active confirmed 84108610 ALLERGIES No Known Allergies ENCOUNTERS from 1935 to 2021-04-08 Encounter Location Date Provider Diagnosis [address] [phone] [place] [address] Feb, Daniel Henley 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, soft tissue, and skin D49.2 IMMUNIZATIONS Vaccine Route Administration Date Status Influenza [...] FOR REFERRAL No Information VITAL SIGNS Weight 213.4 lbs Feb, Weight-kg 96.8 kg Feb, Height 72 in Feb, BMI 28.94 kg/m2 Feb, Heart Rate 93 /min Feb, Respiratory Rate 18 /min Feb, Temperature 96.2 degrees Fahrenheit Feb, Oximetry 90 Feb, Blood pressure systolic 126 mm Hg Feb, Blood pressure diastolic 70 mm Hg Feb, MEDICATIONS Medication SIG (Take, Route, Frequency, Duration) [...] capsule Orally tid for 30 day(s) 29 2020 Not-Taking Aspirin 81 MG 1 tablet [...] needed for 30 Days Jul, Active PROCEDURES from 1935 to 2021-04-08 Procedure Date Ordered Result Body Site Med: Derm 1% Lidocaine with Epinephrine Injection Intr adermally to marked areas 2021-03-06 N/A RESULTS No Results REASON FOR VISIT concern for skin cancer on his forehead MEDICAL (GENERAL) HISTORY Type Description Date Medical [...] Notes Treatment Notes Treatm ent Clinical Notes Feb, 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 I let him know that this appears to be a very disorganized lesion and that generally doesn't savi well prognostically. I am nearly certain that he will need Dr. Montalvo to remove this with Moh's micrographic surgery. To best faciliate a diagnosis and to help Dr. Montalvo plan I recommended that we do two punch biopsies from traveling sales representative portions of the lesion. He considered the pros and cons of the available options and accepted my recommendation. The procedure was performed as noted below. PLAN OF TREATMENT Treatment Notes Assessment Notes Clinical Notes Neoplasm of unspecified behavior of bone, soft tissue, and s kin We discussed treatment option. I let him know that this appears to be a very disorganized lesion and that generally doesn't savi well prognostically. I am nearly certain that he will need Dr. Montalvo to remove this with Moh's micrographic surgery. To best faciliate a diagnosis and to help Dr. Montalvo plan I recommended that we do two punch biopsies from traveling sales representative portions of the lesion. He cons idered the pros and cons of the available options and accepted my recommendation. The procedure was performed as noted below. Next Appt Details 1 Week Reason:follow-up path and healing Follow Up:1 Weekfollow-up path and healing Insurance Providers Payer Name Payer Address Payer Phone Insured Name Patient Relati onship to Insured Coverage Start Date Coverage End Date MEDICARE Part A and B [address] [facility] [phone] [place] CERDA [facility] HEALTH CARE [facility] CLAIM [facility] [address] [facility] [phone] [place] CERDA
--- OUTSIDE RECORDS SUMMARY | 2021-05-07 09:05 | CCD ---
Author Author [facility] Organization [facility] Address Unknown Phone Unavailable Care Team Providers Care Catering Service Manager Name Role Phone Ladan Carrillo Unavailable PROBLEMS Type Condition ICD9-CM Code EBY55-CA Code Onset Dates Condition S tatus W/U Status Risk SNOMED Code Notes Problem Essential hypertension I10 Active confirmed 06937481 Problem BPH (benign prostatic hyperplasia) N40.0 Activ e confirmed 826838631 Problem Arthritis M19.90 Active confirmed 3760601 Problem Idiopathic chronic gout of foot without tophus, 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 confirmed 31634900 Problem Non-ST elevation myocardial infarction (NSTEMI) in recovery phase I21.4 Active confirmed 451337722 Problem Claudication I73.9 Active confirmed 7633708 6 Problem Renal calculi N20.0 Active confirmed 497688 07 Problem Memory loss R41.3 Active confirmed 46471853 Problem Allergic rhinitis, unspecifi ed allergic rhinitis trigger, unspecified rhinitis seasonality J30.9 Active confirmed 38957576 Problem Gastroesophageal reflux disease without esophagitis K21.9 Active confirmed 774050984 Problem Gross hematuria R31.0 Active confirmed 1978 50321 Problem Lumbosacral spondylosis with radiculopathy M47.27 Active confirmed 747011958 Problem Peripheral vascular disease I73.9 Active confirmed 299983147 ALLERGIES No Known Allergies ENCOUNTERS from 1935 to 2021-02-19 Encounter Location Date Provider Diagnosis [facility] [address] [phone] [address] Jan, Ladan Carrillo IMMUNIZATIONS Vaccine Route Administration [...] Notes Start Da te End Date Status Losartan Potassium 100 MG 1 tablet Orally Daily Active Extra Strength Acetaminophen 500 MG 1 capsule as needed Orally Daily Active Tamsulosin HCl 0.4 MG 1 capsule 30 minutes after t he same meal each day Orally Once a day for 90 Active Aspirin 81 MG 1 tablet Orally Once a day for 90 day(s) Apr, Active Finasteride 5 MG 1 tablet Orally Once a day for 90 Active Omeprazole 20 MG 1 capsule 30 minutes before morning meal Orally Once a day for 90 day(s) Mar, Active Aspir-81 Active Colchicine 0.6 MG 1 tablet Orally for 30 day(s) Active Gabapentin 300 MG TAKE 2 CAPSULES BY MOUTH 3 TIMES DAILY for 30 Active Atorvastatin Calcium 40 MG 1 tablet Orally Once a day for 90 day (s) Apr, Active Cefdinir 300 MG 1 cap Orally bid for 10 day(s) Jun, Not-Taking Clopidogrel Bisulfate 75 MG 1 tablet Orally Once a day for 90 da y(s) Apr, Active Colchicine 0.6 MG 1 tablet Orally for 30 day(s) Active Allopurinol 300 MG 1 tablet Orally Once a day Active Gabapentin 100 MG 1 capsule Orally tid for 30 day(s) 2020 Not-Taking Isosorbide Mononitrate 10 MG 1 tablet Orally Twice a day for 30 day(s) 1/2 am 1/2 pm Active Voltaren 1 % Apply 4g to right hip joint Externally every 8 hours as needed for 30 Days Jul, Active predniSONE 20 MG 3 tabs daily for 5 days, the n 2 tabs for 5 days, then 1 tab for 5 days Orally Once a day for 15 days October, Not-Taking PROCEDURES No Information RESULTS No Results REASON FOR VISIT BIAS BINDING CUTTER referral MEDICAL (GENERAL) HISTORY Type Description Date Medical [...] 04/07-04/10/2020 Surgical History cystoscopy 08/2020 Hospitalization History [facility] 10[facility] [facility]10[place]2020 Goals Section No Information Health Concerns No Information MEDICAL EQUIPMENT No Information MENTAL STATUS No Information FUNCTIONAL STATUS No Information ASSESSMENTS No Information PLAN OF TREATMENT No Information Insurance Providers Payer Name Payer Address Payer Phone Insured Name Patient Relati onship to Insured Coverage Start Date Coverage End Date MEDICARE Part A and B [address] [facility] [phone] [place] CER[place] [facility] HEALTH CARE OPTIONS [facility] CLAIM DIV [address] [facility] [address] [place] CERDA
--- OUTSIDE RECORDS SUMMARY | 2021-05-07 09:05 | CCD ---
Author Author [facility] Organization [facility] Address Unknown Phone Unavailable Care Team Providers Care Quality Control Expert Name Role Phone Aaron Ball Unavailable PROBLEMS Type Condition ICD9-CM Code [id number] Code Onset Dates Condition S tatus W/U Status Risk SNOMED Code Notes Problem BPH (benign prostatic hyperplasia) N40.0 Activ e confirmed 245970450 Problem Allergic rhinitis, unspecifi ed allergic rhinitis trigger, unspecified rhinitis seasonality J30.9 Active confirmed 29822369 Problem Essential hypertension I10 Active confirmed 18874601 Problem Arthritis M19.90 Active confirmed 6811119 Problem Renal calculi N20.0 Active confirmed 238944 07 Problem Gastroesophageal reflux disease without esophagitis K21.9 Active confirmed 547169959 Problem Gross hematuria R31.0 Active confirmed 1978 67677 Problem Lumbosacral spondylosis with radiculopathy M47.27 Active confirmed 243927509 Problem Skin carcinoma C44.99 Active confirmed 09352 0007 Problem Non-ST elevation myocardial infarction (NSTEMI) in recovery phase I21.4 Active confirmed 915677667 Problem Carcinoma C80.1 Active confirmed 199308614 Problem Idiopathic chronic gout of foot without tophus, 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 confirmed 30940122 Problem Peripheral vascular disease I73.9 Active confirmed 459312100 Problem Claudication I73.9 Active confirmed 0244987 6 Problem Memory loss R41.3 Active confirmed 77260404 Problem Carcinoma, 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 Active confirmed 797835831 ALLERGIES No Known Allergies ENCOUNTERS from 1935 to 2021-04-22 Encounter Location Date Provider Diagnosis [facility] Dermatology [address] [place] [address] [place] [address] Mar, Aaron Ball Encounter for change of dres sing Z48.00 IMMUNIZATIONS Vaccine Route Administration Date Status Influenza [...] capsule as needed Orally Daily Active PROCEDURES from 1935 to 2021-04-22 Procedure Date Ordered Result Body Site NURSE ONLY VISIT FOR DRESSING CHANGE 2021-04-22 N/A RESULTS No Results REASON FOR VISIT Dressing Change, wound check MEDICAL (GENERAL) HISTORY Type Description Date Medical [...] Treatment Notes Treatm ent Clinical Notes Mar, Encounter for change of dressing (ICD-10 - Z48.0 0) PLAN OF TREATMENT Next Appt Details Provider Name:Aaron Ball, 04-28 01:00:00 PM, [address] [facility] [place], , [place], [place], [facility], Insurance Providers Payer Name Payer Address Payer Phone Insured Name Patient Relati onship to Insured Coverage Start Date Coverage End Date MEDICARE Part A and B [address] [facility] [phone] [facility] HEALTH CARE OPTIONS [facility] CLAIM DIV [address] [facility] [phone] [place] CERDA
--- OUTSIDE RECORDS SUMMARY | 2021-05-07 09:05 | CCD | Continuity of Care Document ---
Author Author Robert PEACE Organization Unknown Address [address] [place] [address] Phone [phone] Care Team Providers Care Sound Tester Name Role Phone Ladan Carrillo M.D. AUTM [phone] Problems Active Problems Provider Date Memory impairment [...] Available Procedures Date Code Description Status 04/17/2021 84157 Assessment/Care Planning For Pat ient W/Cognitive Impairment Completed Medical Devices Description No Information Available Encounters Type Date Location Provider Dx Diagnosis Office Visit 04/17/2021 1:30p Main office - [place] Stacy Spaulding M.D. G47.51 Confusional arousals R41.3 Other amnesia R44.1 Visual hallucinations Assessments Date Code Description Provider 04/17/2021 G47.51 Confusional arousals Stacy barragan M.D. 04/17/2021 R41.3 Other amnesia Jh Motley 04/17/2021 R44.1 Visual hallucinations Stacy andrade M.D. Plan of Treatment Future Appointment(s):* 05/27/2021 2:30 pm - EEG at Main office - [place] * 06/06/2021 10:30 am - Flora Lovell P.A.-C. at Main office [facility] Functional Status Description No Information Available Mental Status Description No Information Available Referrals Description No Information Available
--- OUTSIDE RECORDS SUMMARY | 2021-05-07 09:08 | CCD ---
Author Author [facility] Organization [facility] Address Unknown Phone Unavailable Care Team Providers Care Pre Press Manager Name Role Phone Deepak Markham Ciara PROVIDER RELATIONS COORDINATOR Unavailable Unavailable Shahrzad, L Ciara PROVIDER RELATIONS COORDINATOR Unavailable Unavailable Shahrzad, L Ciara PROVIDER RELATIONS COORDINATOR Unavailable Unavailable Shahrzad, L Ciara PROVIDER RELATIONS COORDINATOR Unavailable Unavailable Shahrzad, L Ciara PROVIDER RELATIONS COORDINATOR Unavailable Unavailable Shahrzad, L Ciara PROVIDER RELATIONS COORDINATOR Unavailable Unavailable Shahrzad, L Ciara PROVIDER RELATIONS COORDINATOR Unavailable Unavailable Shahrzad, L Ciara PROVIDER RELATIONS COORDINATOR Unavailable Unavailable Shahrzad, L Ciara PROVIDER RELATIONS COORDINATOR Unavailable Unavailable Shahrzad, L Ciara PROVIDER RELATIONS COORDINATOR Unavailable Unavailable Shahrzad, L Ciara PROVIDER RELATIONS COORDINATOR Unavailable Unavailable Shahrzad, L Ciara PROVIDER RELATIONS COORDINATOR Unavailable Unavailable Shahrzad, L Ciara PROVIDER RELATIONS COORDINATOR Unavailable Unavailable Shahrzad, L Ciara PROVIDER RELATIONS COORDINATOR Unavailable Unavailable Shahrzad, L Ciara PROVIDER RELATIONS COORDINATOR Unavailable Unavailable Shahrzad, L Ciara PROVIDER RELATIONS COORDINATOR Unavailable Unavailable Shahrzad, L Ciara PROVIDER RELATIONS COORDINATOR Unavailable Unavailable Shahrzad, L Ciara PROVIDER RELATIONS COORDINATOR Unavailable Unavailable Shahrzad, L Ciara PROVIDER RELATIONS COORDINATOR Unavailable Unavailable Shahrzad, L Ciara PROVIDER RELATIONS COORDINATOR Unavailable Unavailable Shahrzad, L Ciara PROVIDER RELATIONS COORDINATOR Unavailable Unavailable Shahrzad, L Ciara PROVIDER RELATIONS COORDINATOR Unavailable Unavailable Shahrzad, L Ciara PROVIDER RELATIONS COORDINATOR Unavailable Unavailable Shahrzad, L Ciara PROVIDER RELATIONS COORDINATOR Unavailable Unavailable Shahrzad, L Ciara PROVIDER RELATIONS COORDINATOR Unavailable Unavailable Cougler, S Devon PROVIDER RELATIONS COORDINATOR Unavailable Unavailable Cougler, S Devon PROVIDER RELATIONS COORDINATOR Unavailable Unavailable Cougler, S Devon PROVIDER RELATIONS COORDINATOR Unavailable Unavailable Cougler, S Devon PROVIDER RELATIONS COORDINATOR Unavailable Unavailable Cougler, S Devon PROVIDER RELATIONS COORDINATOR Unavailable Unavailable Cougler, S Devon PROVIDER RELATIONS COORDINATOR Unavailable Unavailable Cougler, S Devon PROVIDER RELATIONS COORDINATOR Unavailable Unavailable Cougler, S Devon PROVIDER RELATIONS COORDINATOR Unavailable Unavailable Cougler, S Devon PROVIDER RELATIONS COORDINATOR Unavailable Unavailable Cougler, S Devon PROVIDER RELATIONS COORDINATOR Unavailable Unavailable Cougler, S Devon PROVIDER RELATIONS COORDINATOR Unavailable Unavailable Cougler, S Devon PROVIDER RELATIONS COORDINATOR Unavailable Unavailable Cougler, S Devon PROVIDER RELATIONS COORDINATOR Unavailable Unavailable Cougler, S Devon PROVIDER RELATIONS COORDINATOR Unavailable Unavailable Cougler, S Devon PROVIDER RELATIONS COORDINATOR Unavailable Unavailable Cougler, S Devon PROVIDER RELATIONS COORDINATOR Unavailable Unavailable Cougler, S Devon PROVIDER RELATIONS COORDINATOR Unavailable Unavailable Cougler, S Devon PROVIDER RELATIONS COORDINATOR Unavailable Unavailable Cougler, S Devon PROVIDER RELATIONS COORDINATOR Unavailable Unavailable Cougler, S Devon PROVIDER RELATIONS COORDINATOR Unavailable Unavailable Cougler, S Devon PROVIDER RELATIONS COORDINATOR Unavailable Unavailable Cougler, S Devon PROVIDER RELATIONS COORDINATOR Unavailable Unavailable Cougler, S Devon PROVIDER RELATIONS COORDINATOR Unavailable Unavailable Cougler, S Devon PROVIDER RELATIONS COORDINATOR Unavailable Unavailable Cougler, S Devon PROVIDER RELATIONS COORDINATOR Unavailable Unavailable Cougler, S Devon PROVIDER RELATIONS COORDINATOR Unavailable Unavailable Cougler, S Devon PROVIDER RELATIONS COORDINATOR Unavailable Unavailable Cougler, S Devon PROVIDER RELATIONS COORDINATOR Unavailable Unavailable Cougler, S Devon PROVIDER RELATIONS COORDINATOR Unavailable Unavailable Cougler, S Devon PROVIDER RELATIONS COORDINATOR Unavailable Unavailable Cougler, S Devon PROVIDER RELATIONS COORDINATOR Unavailable Unavailable Cougler, S Devon PROVIDER RELATIONS COORDINATOR Unavailable Unavailable Cougler, S Devon PROVIDER RELATIONS COORDINATOR Unavailable Unavailable Cougler, S Devon PROVIDER RELATIONS COORDINATOR Unavailable Unavailable Cougler, S Devon PROVIDER RELATIONS COORDINATOR Unavailable Unavailable Cougler, S Devon PROVIDER RELATIONS COORDINATOR Unavailable Unavailable Cougler, S Devon PROVIDER RELATIONS COORDINATOR Unavailable Unavailable Cougler, S Devon PROVIDER RELATIONS COORDINATOR Unavailable Unavailable Cougler, S Devon PROVIDER RELATIONS COORDINATOR Unavailable Unavailable Cougler, S Devon PROVIDER RELATIONS COORDINATOR Unavailable Unavailable Cougler, S Devon PROVIDER RELATIONS COORDINATOR Unavailable Unavailable Cougler, S Devon PROVIDER RELATIONS COORDINATOR Unavailable Unavailable Cougler, S Devon PROVIDER RELATIONS COORDINATOR Unavailable Unavailable Cougler, S Devon PROVIDER RELATIONS COORDINATOR Unavailable Unavailable Cougler, S Devon PROVIDER RELATIONS COORDINATOR Unavailable Unavailable JONO, A KATHIA PA Unavailable Unavailable JONO, A KATHIA PA Unavailable Unavailable JONO, A KATHIA PA Unavailable Unavailable JONO, A KATHIA PA Unavailable Unavailable JONO, A KATHIA PA Unavailable Unavailable JONO, A KATHIA PA Unavailable Unavailable JONO, A KATHIA PA Unavailable Unavailable JONO, A KATHIA PA Unavailable Unavailable JONO, A KATHIA PA Unavailable Unavailable JONO, A KATHIA PA Unavailable Unavailable JONO, A KATHIA PA Unavailable Unavailable JONO, A KATHIA PA Unavailable Unavailable JONO, A KATHIA PA Unavailable Unavailable LEE, KATHIA LOPEZ DO Unavailable Unavailable LEE, KATHIA LOPEZ DO Unavailable Unavailable LEE, KATHIA LOPEZ DO Unavailable Unavailable LEE, KATHIA LOPEZ DO Unavailable Unavailable LEE, KATHIA LOPEZ DO Unavailable Unavailable LEE, KATHIA LOPEZ DO Unavailable Unavailable LEE, KATHIA LOPEZ DO Unavailable Unavailable LEE, KATHIA LOPEZ DO Unavailable Unavailable LEE, KATHIA LOPEZ DO Unavailable Unavailable LEE, KATHIA LOPEZ DO Unavailable Unavailable LEE, KATHIA LOPEZ DO Unavailable Unavailable LEE, KATHIA LOPEZ DO Unavailable Unavailable LEE, KATHIA LOPEZ DO Unavailable Unavailable LEE, KATHIA LOPEZ DO Unavailable Unavailable LEE, KATHIA LOPEZ DO Unavailable Unavailable LEE, KATHIA LOPEZ DO Unavailable Unavailable LEE, KATHIA LOPEZ DO Unavailable Unavailable LEE, KATHIA LOPEZ DO Unavailable Unavailable LEE, KATHIA LOPEZ DO Unavailable Unavailable LEE, KATHIA LOPEZ DO Unavailable Unavailable LEE, KATHIA LOPEZ DO Unavailable Unavailable LEE, KATHIA LOPEZ DO Unavailable Unavailable LEE, KATHIA LOPEZ DO Unavailable Unavailable LEE, KATHIA LOPEZ DO Unavailable Unavailable LEE, KATHIA LOEPZ DO Unavailable Unavailable LEE, KATHIA LOPEZ DO Unavailable Unavailable LEE, KATHIA LOPEZ DO Unavailable Unavailable LEE, KATHIA LOPEZ DO Unavailable Unavailable LEE, KATHIA LOPEZ DO Unavailable Unavailable LEE, KATHIA LOPEZ DO Unavailable Unavailable LEE, KATHIA LOPEZ DO Unavailable Unavailable LEE, KATHIA LOPEZ DO Unavailable Unavailable LEE, KATHIA LOPEZ DO Unavailable Unavailable LEE, KATHIA LOPEZ DO Unavailable Unavailable LEE, KATHAI LOPEZ DO Unavailable Unavailable LEE, KATHIA LOPEZ DO Unavailable Unavailable LEE, KATHIA LOPEZ DO Unavailable Unavailable LEE, KATHIA LOPEZ DO Unavailable Unavailable LEE, KATHIA LOPEZ DO Unavailable Unavailable LEE, KATHIA LOPEZ DO Unavailable Unavailable LEE, KATHIA LOPEZ DO Unavailable Unavailable LEE, KATHIA LOPEZ DO Unavailable Unavailable LEE, KATHIA LOPEZ DO Unavailable Unavailable LEE, KATHIA JOHN DO Unavailable Unavailable LEE, KATHIA JOHN DO Unavailable Unavailable LEE, KATHIA JOHN DO Unavailable Unavailable LEE, KATHIA JOHN DO Unavailable Unavailable LEE, KATHIA JOHN DO Unavailable Unavailable LEE, KATHIA JOHN DO Unavailable Unavailable LEE, KATHIA JOHN DO Unavailable Unavailable LEE, KATHIA JOHN DO Unavailable Unavailable LEE, KATHIA JOHN DO Unavailable Unavailable LEE, KATHIA JOHN DO Unavailable Unavailable LEE, KATHIA JOHN DO Unavailable Unavailable LEE, KATHIA JOHN DO Unavailable Unavailable LEE, KATHIA JOHN DO Unavailable Unavailable LEE, KATHIA JOHN DO Unavailable Unavailable LEE, AKTHIA JOHN DO Unavailable Unavailable LEE, KATHIA JOHN DO Unavailable Unavailable LEE, KATHIA JOHN DO Unavailable Unavailable LEE, KATHIA JOHN DO Unavailable Unavailable LEE, KATHIA JOHN DO Unavailable Unavailable LEE, KATHIA JOHN DO Unavailable Unavailable LEE, KATHIA JOHN DO Unavailable Unavailable LEE, KATHIA JOHN DO Unavailable Unavailable LEE, KATHIA JOHN DO Unavailable Unavailable LEE, KATHIA JOHN DO Unavailable Unavailable MARAVEGIAS, Nicolasa ARROYO MD Unavailable Unavailable MARAVEGIAS, Nicolasa ARROYO MD Unavailable Unavailable MARAVEGIAS, Nicolasa ARROYO MD Unavailable Unavailable MARAVEGIAS, Nicolasa ARROYO MD Unavailable Unavailable MARAVEGIAS, Nicolasa ARROYO MD Unavailable Unavailable MARAVEGIAS, Nicolasa ARROYO MD Unavailable Unavailable MARAVEGIAS, Nicolasa ARROYO MD Unavailable Unavailable MARAVEGIAS, Nicolasa ARROYO MD Unavailable Unavailable MARAVEGIAS, Nicolasa ARROYO MD Unavailable Unavailable MARAVEGIAS, Nicolasa ARROYO MD Unavailable Unavailable MARAVEGIAS, Nicolasa ARROYO MD Unavailable Unavailable MARAVEGIAS, Nicolasa ARROYO MD Unavailable Unavailable MARAVEGIAS, Nicolasa ARROYO MD Unavailable Unavailable MARAVEGIAS, Nicolasa ARROYO MD Unavailable Unavailable ZEGIL, D VANDANA CUT FILER Unavailable Unavailable ZEGIL, D VANDANA CUT FILER Unavailable Unavailable ZEGIL, D VANDANA CUT FILER Unavailable Unavailable ERICKADEA ROMO MD Unavailable Unavailable ERICKADEA ROMO MD Unavailable Unavailable ERICKADEA ROMO MD Unavailable Unavailable ERICKADEA ROMO MD Unavailable Unavailable ERICKADEA ROMO MD Unavailable Unavailable ERICKADEA ROMO MD Unavailable Unavailable ERICKADEA ROMO MD Unavailable Unavailable ERICKADEA ROMO MD Unavailable Unavailable ERICKADEA ROMO MD Unavailable Unavailable ERICKADEA ROMO MD Unavailable Unavailable ERICKADEA ROMO MD Unavailable Unavailable ERICKADEA ROMO MD Unavailable Unavailable ERICKADEA ROMO MD Unavailable Unavailable ERICKA, DEA MD Unavailable Unavailable ERICKA, DEA MD Unavailable Unavailable ERICKA, DEA MD Unavailable Unavailable ERICKA, DEA MD Unavailable Unavailable ERICKA, DEA MD Unavailable Unavailable ERICKA, DEA MD Unavailable Unavailable ERICKA, DEA MD Unavailable Unavailable ERICKA, DEA MD Unavailable Unavailable ERICKA, DEA MD Unavailable Unavailable EIRCKA, DEA MD Unavailable Unavailable ERICKA, DEA MD Unavailable Unavailable ERICKA, DEA MD Unavailable Unavailable ERICKA, DEA MD Unavailable Unavailable ERICKA, DEA MD Unavailable Unavailable ERICKA, DEA MD Unavailable Unavailable ERICKA, DEA MD Unavailable Unavailable ERICKA, DEA MD Unavailable Unavailable ERICKA, DEA MD Unavailable Unavailable ERICKA, DEA MD Unavailable Unavailable ERICKA, DEA MD Unavailable Unavailable ERICKA, DEA MD Unavailable Unavailable ERICKA, DEA MD Unavailable Unavailable ERICKA, DEA MD Unavailable Unavailable ERICKA, DEA MD Unavailable Unavailable ERICKA, DEA MD Unavailable Unavailable ERICKA, DEA MD Unavailable Unavailable ERICKA, DEA MD Unavailable Unavailable EIRCKA, DEA MD Unavailable Unavailable ERICKA, DEA MD Unavailable Unavailable ERICKA, DEA MD Unavailable Unavailable ERICKA, DEA MD Unavailable Unavailable ERICKA, DEA MD Unavailable Unavailable ERICKA, DEA MD Unavailable Unavailable ERICKA, DEA MD Unavailable Unavailable ERICKA, DEA MD Unavailable Unavailable ERICKA, DEA MD Unavailable Unavailable ERICKA, DEA MD Unavailable Unavailable ERICKA, DEA MD Unavailable Unavailable ERICKA, DEA MD Unavailable Unavailable ERICKA, DEA MD Unavailable Unavailable ERICKA, DEA MD Unavailable Unavailable ERICKA, DAE MD Unavailable Unavailable ERICKA, DEA MD Unavailable Unavailable ERICKA, DEA MD Unavailable Unavailable ERICKA, DEA MD Unavailable Unavailable ERICKA, DEA MD Unavailable Unavailable ERICKA, DAE MD Unavailable Unavailable EIRCKA, DEA MD Unavailable Unavailable ERICKA, DEA MD Unavailable Unavailable ERICKA, DEA MD Unavailable Unavailable ERICKA, DEA MD Unavailable Unavailable ERICKA, DEA MD Unavailable Unavailable ERICKA, DEA MD Unavailable Unavailable ERICKA, DEA MD Unavailable Unavailable ERICKA, DEA MD Unavailable Unavailable ERICKA, DEA MD Unavailable Unavailable ERICKA, DEA MD Unavailable Unavailable ERICKA, DEA MD Unavailable Unavailable ERICKA, DEA MD Unavailable Unavailable ERICKA, DEA MD Unavailable Unavailable ERICKA, DEA MD Unavailable Unavailable ERICKA, DEA MD Unavailable Unavailable ERICKA, DEA MD Unavailable Unavailable ERICKA, DEA MD Unavailable Unavailable ERICKADEA ROMO MD Unavailable Unavailable ERICKADEA ROMO MD Unavailable Unavailable ERICKADEA ROMO MD Unavailable Unavailable ERICKADEA ROMO MD Unavailable Unavailable ERICKADEA ROMO MD Unavailable Unavailable ERICKADEA ROMO MD Unavailable Unavailable ERICKADEA ROMO MD Unavailable Unavailable DEA BARNETT MD Unavailable Unavailable DEA BARNETT MD Unavailable Unavailable Dori Hutchinson MD Unavailable Unavailable UNKNOWN Unavailable Unavailable ANTECOL, Juanis LAWS MD Unavailable Unavailable ANTECOL, Juanis LAWS MD Unavailable Unavailable ANTECOL, Juanis LAWS MD Unavailable Unavailable ANTECOL, Juanis LAWS MD Unavailable Unavailable ANTECOL, Juanis LAWS MD Unavailable Unavailable ANTECOL, Juanis LAWS MD Unavailable Unavailable ANTECOL, Juanis LAWS MD Unavailable Unavailable ANTECOL, Juanis LAWS MD Unavailable Unavailable ANTECOL, Juanis LAWS MD Unavailable Unavailable ANTECOL, Juanis LAWS MD Unavailable Unavailable ANTECOL, Juanis LAWS MD Unavailable Unavailable ANTECOL, Juanis LAWS MD Unavailable Unavailable ANTECOL, Juanis LAWS MD Unavailable Unavailable ANTECOL, Juanis LAWS MD Unavailable Unavailable ANTECOL, Juanis LAWS MD Unavailable Unavailable ANTECOL, Juanis LAWS MD Unavailable Unavailable ANTECOL, Juanis LAWS MD Unavailable Unavailable ANTECOL, Juanis LAWS MD Unavailable Unavailable ANTECOL, Juanis LAWS MD Unavailable Unavailable ANTECOL, Juanis LAWS MD Unavailable Unavailable ANTECOL, Juanis LAWS MD Unavailable Unavailable ANTECOL, Juanis LAWS MD Unavailable Unavailable ANTECOL, Juanis LAWS MD Unavailable Unavailable ANTECOL, Juanis LAWS MD Unavailable Unavailable ANTECOL, Juanis LAWS MD Unavailable Unavailable ANTECOL, Juanis LAWS MD Unavailable Unavailable ANTECOL, Juanis LAWS MD Unavailable Unavailable ANTECOL, Juanis LAWS MD Unavailable Unavailable ANTECOL, Juanis LAWS MD Unavailable Unavailable ANTECOL, Juanis LAWS MD Unavailable Unavailable ANTECOL, Juanis LAWS MD Unavailable Unavailable ANTECOL, Juanis LAWS MD Unavailable Unavailable ANTECOL, Juanis LAWS MD Unavailable Unavailable ANTECOL, Juanis LAWS MD Unavailable Unavailable ANTECOL, Juanis LAWS MD Unavailable Unavailable ANTECOL, Juanis LAWS MD Unavailable Unavailable ANTECOL, Juanis LAWS MD Unavailable Unavailable ANTECOL, Juanis LAWS MD Unavailable Unavailable ANTECOL, Juanis LAWS MD Unavailable Unavailable ANTECOL, Juanis LAWS MD Unavailable Unavailable ANTECOL, Juanis LAWS MD Unavailable Unavailable ANTECOL, Juanis LAWS MD Unavailable Unavailable ANTECOL, Juanis LAWS MD Unavailable Unavailable ANTECOL, Juanis LAWS MD Unavailable Unavailable ANTECOL, Juanis LWAS MD Unavailable Unavailable ANTECOL, Juanis LAWS MD Unavailable Unavailable ANTECOL, Juanis LAWS MD Unavailable Unavailable ANTECOL, Juanis LAWS MD Unavailable Unavailable ANTECOL, Juanis LAWS MD Unavailable Unavailable ANTECOL, Juanis LAWS MD Unavailable Unavailable ANTECOL, Juanis LAWS MD Unavailable Unavailable ANTECOL, Juanis LAWS MD Unavailable Unavailable Juanis BERMUDEZ MD Unavailable Unavailable ANTECJuanis RING MD Unavailable Unavailable KULWANT, DEBANIK Unavailable Unavailable KULWANT, DEBANIK Unavailable Unavailable KULWANT, DEBANIK Unavailable Unavailable KULWANT, DEBANIK Unavailable Unavailable KULWANT, DEBANIK Unavailable Unavailable KULWANT, DEBANIK Unavailable Unavailable KULWANT, DEBANIK Unavailable Unavailable KULWANT, DEBANIK Unavailable Unavailable KULWANT, DEBANIK Unavailable Unavailable KULWANT, DEBANIK Unavailable Unavailable KULWANT, DEBANIK Unavailable Unavailable KULWANT, DEBANIK Unavailable Unavailable KULWANT, DEBANIK Unavailable Unavailable KULWANT, DEBANIK Unavailable Unavailable KULWANT, DEBANIK Unavailable Unavailable KULWANT, DEBANIK Unavailable Unavailable KULWANT, DEBANIK Unavailable Unavailable KULWANT, DEBANIK Unavailable Unavailable KULWANT, DEBANIK Unavailable Unavailable KULWANT, DEBANIK Unavailable Unavailable KULWANT, DEBANIK Unavailable Unavailable KULWANT, DEBANIK Unavailable Unavailable KULWANT, DEBANIK Unavailable Unavailable KULWANT, DEBANIK Unavailable Unavailable Nicolasa MCFADDEN MD Unavailable Unavailable Nicolasa MCFADDEN MD Unavailable Unavailable Nicolasa MCFADDEN MD Unavailable Unavailable Nicolasa MCFADDEN MD Unavailable Unavailable Nicolasa MCFADDEN MD Unavailable Unavailable Nicolasa MCFADDEN MD Unavailable Unavailable Nicolasa MCFADDEN MD Unavailable Unavailable Nicolasa MCFADDEN MD Unavailable Unavailable Nicolasa MCFADDEN MD Unavailable Unavailable Nicolasa MCFADDEN MD Unavailable Unavailable Nicolasa MCFADDEN MD Unavailable Unavailable Nicolasa MCFADDEN MD Unavailable Unavailable Nicolasa MCFADDEN MD Unavailable Unavailable Nicolasa MCFADDEN MD Unavailable Unavailable Nicolasa MCFADDEN MD Unavailable Unavailable Nicolasa MCFADDEN MD Unavailable Unavailable Nicolasa MCFADDEN MD Unavailable Unavailable Nicolasa MCFADDEN MD Unavailable Unavailable Nicolasa MCFADDEN MD Unavailable Unavailable Nicolasa MCFADDEN MD Unavailable Unavailable Nicolasa MCFADDEN MD Unavailable Unavailable Nicolasa MCFADDEN MD Unavailable Unavailable Nicolasa MCFADDEN MD Unavailable Unavailable Nicloasa MCFADDEN MD Unavailable Unavailable KOZMAN, N MAGALIS MINOR Unavailable Unavailable KOZMAN, N MAGALIS MD Unavailable Unavailable KOZMAN, N MAGALIS MD Unavailable Unavailable KOZMAN, N THIAGOI MD Unavailable Unavailable KOZMAN, N HANI MD Unavailable Unavailable KOZMAN, N HANI MD Unavailable Unavailable KOZMAN, N HANI MD Unavailable Unavailable KOZMAN, N HANI MD Unavailable Unavailable KOZMAN, N HANI MD Unavailable Unavailable KOZMAN, N HANI MD Unavailable Unavailable KOZMAN, N HANI MD Unavailable Unavailable KOZMAN, N HANI MD Unavailable Unavailable KOZMAN, N HANI MD Unavailable Unavailable KOZMAN, N HANI MD Unavailable Unavailable KOZMAN, N HANI MD Unavailable Unavailable KOZMAN, N HANI MD Unavailable Unavailable KOZMAN, N HANI MD Unavailable Unavailable KOZMAN, N HANI MD Unavailable Unavailable KOZMAN, N HANI MD Unavailable Unavailable KOZMAN, N HANI MD Unavailable Unavailable KOZMAN, N HANI MD Unavailable Unavailable KOZMAN, N MAGALIS MD Unavailable Unavailable KOZMAN, N HANI MD Unavailable Unavailable KOZMAN, N HANI MD Unavailable Unavailable KOZMAN, N HANI MD Unavailable Unavailable KOZMAN, N HANI MD Unavailable Unavailable KOZMAN, N MAGALIS MD Unavailable Unavailable KOZMAN, N MAGALIS MD Unavailable Unavailable KOZMAN, N MAGALIS MD Unavailable Unavailable KOZMAN, N THIAGOI MD Unavailable Unavailable KOZMAN, N THIAGOI MD Unavailable Unavailable KOZMAN, N MAGALIS MD Unavailable Unavailable KOZMAN, N MAGALIS MINOR Unavailable Unavailable Dori Hutchinson MD Unavailable Unavailable Dori Hutchinson MD Unavailable Unavailable Re-disclosure Warning The records that you are about to access may contain information from federally-assisted alcohol or drug abuse programs. If such information is present, then the following federally mandated warning applies: This information has been disclosed to you from records protected by federal confidentiality rules (42 CFR part 2). The federal rules prohibit you from making any further disclosure of this information unless further disclosure is expressly permitted by the written consent of the person to whom it pertains or as otherwise permitted by 42 CFR part 2. A general authorization for the release of medical or other information is NOT sufficient for this purpose. The Federal rules restrict any use of the information to criminally investigate or prosecute any alcohol or drug abuse patient.The records that you are about to access may contain highly sensitive health information, the redisclosure of which is protected by Article 27-F of the [facility] Public Health law. If you continue you may have access to information: Regarding HIV / AIDS; Provided by facilities licensed or operated by the [facility] Office of Mental Health; or Provided by the [facility] Office for People With Developmental Disabilities. If such information is present, then the following [facility] mandated warning applies: This information has been disclosed to you from confidential records which are protected by state law. State law prohibits you from making any further disclosure of this information without the specific written consent of the person to whom it pertains, or as otherwise permitted by law. Any unauthorized further disclosure in violation of state law may result in a fine or prison sentence or both. A general authorization for the release of medical or other information is NOT sufficient authorization for further disc losure. Allergies and Adverse Reactions Type Description Substance Reaction Status Data Source(s ) Drug allergy Drug allergy No Known Allergies [facility] Propensity to adverse reactions NO KNOWN ALLERGIES NO KNOWN ALLERGIES [facility] Family History Family Member Name Family Member Gender Family Member Status Date o f Status Description Data Source(s) Unknown Unknown Problem [facility] ([facility] 1 Unknown Unknown Problem MEDENT ([facility]) Unknown Male Problem MEDENT ([facility] () Unknown Male Problem MEDENT ([facility]) Encounters Encounter Providers Location Date Indications Data Source(s ) Emergency Attender: Maite Hutchinson MDAttender: Maite Hutchinson MD ED-ED 04/30/2021 11:21:00 AM EDT - 04/30/2021 06:25:00 PM EDT CHEST PAIN [facility] CHEST PAIN Patient discharged. [place] [address] [facility] [address] 04/29/2021 12:00:00 AM EDT eCW1 ([facility]) Emergency Attender: VANDANA ARCEO [facility] ED-ED 03/29 12:25:00 PM EDT - 04/23/2021 02:00:00 PM EDT FELL HIT HEAD [facility] FELL HIT HEAD Patient discharged. [place] [address] [facility] [address] 04/22/2021 12:00:00 AM EDT eCW1 ([facility]) Outpatient Attender: UNKNOWN [facility]PS[facility]EJN 04/18/2021 03:08:00 PM E DT [facility] Outpatient Attender: DEA BARNETT MD ED-[facility] 2020 10:16:00 AM EDT - 04/18/2021 10:17:00 AM EDT COGNITIVE DYSFUNCTION [facility] COGNITIVE DYSFUNCTION Patient discharged. Office Visit Attender: DEA BARNETT MD Main office - [facility] 04/17/2021 01:30:00 PM EDT MEDENT ([facility]) [place] [address] [facility] [address] 04/15/2021 12:00:00 AM EDT eCW1 ([facility]) Unknown [address] [facility] [address] 04/11/2021 12:00:00 AM EDT eCW1 ([facility]) [place] [address] [facility] [address] 04/08/2021 12:00:00 AM EDT eCW1 ([facility]) (MMS 2) Mohs 2 [address] [facility] [address] 04/03/2021 12:00:00 AM EDT eCW1 ([facility]) [place] [address] [facility] [address] 03/28/2021 12:00:00 AM EDT eCW1 ([facility]) Unknown [address] [facility] [address] 03/27/2021 12:00:00 AM EDT eCW1 ([facility]) Unknown [address] [facility] [address] 03/10/2021 12:00:00 AM EDT eCW1 ([facility]) [place] [address] [facility] [address] 03/06/2021 12:00:00 AM EDT eCW1 ([facility]) Unknown [address] [facility] [address] 03/04/2021 12:00:00 AM EDT eCW1 ([facility]) Unknown [address] [facility] [address] 02/20/2021 12:00:00 AM EDT eCW1 [facility] [place] [address] [facility] [address] 02/19/2021 12:00:00 AM EDT eCW1 ([facility]) [place] [address] [facility] [address] 02/19/2021 12:00:00 AM EDT eCW1 ([facility] Unknown [address] [facility] [address] 02/10/2021 12:00:00 AM EDT eCW1 ([facility] [place] [address] [facility] [address] 02/10/2021 12:00:00 AM EDT eCW1 ([facility]) Outpatient Attender: Ciara Hemphill/Mehrdad/Pola/James 01/22/2021 01:30:00 PM EDT MEDENT ([facility] Unknown [address] [facility] [address] 01/22/2021 12:00:00 AM EDT eCW1 ([facility]) Unknown [address] [facility] [address] 12/20/2020 12:00:00 AM EDT eCW1 ([facility]) [place]patient [address] [facility] [address] 12/19/2020 12:00:00 AM EDT eCW1 ([facility]) Office Visit Attender: EUSEBIA BERMUDEZ MD Main Office 11/11/2020 10: 34:00 AM EDT MEDENT ([facility]) Unknown [address] [facility] [address] 11/07/2020 12:00:00 AM EDT eCW1 ([facility]) Unknown [address] [facility] [address] 11/06/2020 12:00:00 AM EDT eCW1 ([facility]) Unknown [address] [facility] [address] 11/05/2020 12:00:00 AM EDT eCW1 ([facility]) Outpatient [address] [facility] [address] 10/31/2020 12:00:00 AM EDT eCW1 ([facility]) Outpatient [address] [facility] [address] 10/24/2020 12:00:00 AM EDT eCW1 ([facility]) Emergency Attender: DINA GOLDEN MD ED-ED 0 10/22/2020 11:00:00 AM EDT - 10/22/2020 01:28:00 PM EDT R LEG PAIN [facility] R LEG PAIN Patient discharged. Unknown [address] [facility] [address] 10/22/2020 12:00:00 AM EDT eCW1 ([facility]) Unknown [address] [facility] [address] 10/22/2020 12:00:00 AM EDT eCW1 ([facility]) Unknown [address] [facility] [address] 09/24/2020 12:00:00 AM EDT eCW1 ([facility]) Unknown [address] [facility] [address] 09/06/2020 12:00:00 AM EST eCW1 ([facility]) (Cysto1) Urology [address] [place] [address] 09/04/2020 12:00:00 AM EST eCW1 ([facility]) Outpatient [address] [facility] [address] 08/27/2020 12:00:00 AM EST eCW1 ([facility]) Office Visit Attender: EUSEBIA BERMUDEZ MD Main Office 08/26/2020 09: 55:00 AM EST MEDENT ([facility]) Outpatient [address] [facility] [address] 08/22/2020 12:00:00 AM EST eCW1 ([facility]) Unknown [address] [facility] [address] 08/22/2020 12:00:00 AM EST eCW1 ([facility]) Unknown [address] [facility] [address] 08/12/2020 12:00:00 AM EST eCW1 ([facility]) Outpatient [address] [facility] [address] 08/12/2020 12:00:00 AM EST eCW1 ([facility]) Unknown [address] [facility] [address] 07/15/2020 12:00:00 AM EST eCW1 ([facility]) Outpatient [address] [facility] [address] 07/09/2020 12:00:00 AM EST eCW1 ([facility]) Unknown [address] [facility] [address] 07/09/2020 12:00:00 AM EST eCW1 ([facility]) Outpatient [address] [facility] [address] 05/07/2020 12:00:00 AM EST eCW1 ([facility]) Unknown [address] [facility] [place] [address] 04/25/2020 12:00:00 AM EDT eCW1 ([facility]) Outpatient Attender: EUSEBIA BERMUDEZ MD Main Office 04/23/2020 12:00:00 PM EDT MEDENT ([facility]) Unknown [address] [facility] [address] 04/12/2020 12:00:00 AM EDT eCW1 ([facility]) Inpatient Attender: HOLLIE GAITAN ttender: MAGALIS MCFADDEN MDAttender: JOHN HOWARD DOAdmitter: JOHN HOWARD DOReferrer: Devon Song PROVIDER RELATIONS COORDINATOR [id number] 04/07/2020 11:03:00 AM EDT - 04/10/2020 02:57:00 PM EDT Non-ST elevation (NSTEMI) myocardial infarction [facility] Non-ST elevation (NSTEMI) myocardial inf arction Patient discharged. Emergency Attender: KATHIA DE LA CRUZ PAAttender: Devon jeffrey NP ED-ED 04/06/2020 11:31:00 PM EDT - 04/07/2020 08:56:00 AM EDT CP [facility] Patient discharged. Medications Medication Brand Name Start Date Product Form Dose Route Admi nistrative Instructions Pharmacy Instructions Status Indications Reaction Description Data Source(s) Memantine hydrochloride 5 MG Oral Tablet MEMANTINE HCL 04/18/2021 12:00:00 AM EDT tablet 60 TAKE ONE TABLET BY MOUTH TWI CE A DAY TAKE ONE TABLET BY MOUTH TWICE A DAY SOLD: 04/20/2021 [facility] Memantine hydrochloride 5 MG Oral Tablet Memantine HCL 04/17/2021 12:00:00 AM EDT ORAL active MEDENT ([facility]) Cephalexin 500 MG Oral Capsule CEPHALEXIN 04/09/2021 12:00:00 AM EDT capsule 20 TAKE ONE CAPSULE BY MOUTH EVERY 12 HOURS FOR 10 DAYS T AURELIO ONE CAPSULE BY MOUTH EVERY 12 HOURS FOR 10 DAYS SOLD: 04/09/2021 [facility] Cephalexin 500 MG Oral Capsule Cephalexin 500 MG 04/09/2021 12:00:0 0 AM EDT 1.0 {capsule} active Cephalexin 500 MG eCW1 ([facility]) Cephalexin 500 MG Oral Capsule Cephalexin 500 MG 04/09/2021 12:00:0 0 AM EDT 1.0 {capsule} active Cephalexin 500 MG eCW1 ([facility]) Cephalexin 500 MG Oral Capsule Cephalexin 500 MG 04/09/2021 12:00:0 0 AM EDT 1.0 {capsule} active Cephalexin 500 MG eCW1 ([facility]) Cephalexin 500 MG Oral Capsule Cephalexin 500 MG 04/09/2021 12:00:0 0 AM EDT 1.0 {capsule} active Cephalexin 500 MG eCW1 ([facility]) Cephalexin 500 MG Oral Capsule Cephalexin 500 MG 04/09/2021 12:00:0 0 AM EDT 1.0 {capsule} active eCW1 [facility] Vitamin B12 1000 MCG Vitamin B12 1000 MCG 02/20/2021 12:00:00 AM ED T 1.0 {tablet} active Vitamin B12 1000 MCG eC W1 ([facility]) Vitamin B12 1000 MCG Vitamin B12 1000 MCG 02/20/2021 12:00:00 AM ED T 1.0 {tablet} active Vitamin B12 1000 MCG eC W1 ([facility]) Vitamin B12 1000 MCG Vitamin B12 1000 MCG 02/20/2021 12:00:00 AM ED T 1.0 {tablet} active eCW1 ([facility]) Vitamin B12 1000 MCG Vitamin B12 1000 MCG 02/20/2021 12:00:00 AM ED T 1.0 {tablet} active Vitamin B12 1000 MCG eC W1 ([facility]) Vitamin B12 1000 MCG Vitamin B12 1000 MCG 02/20/2021 12:00:00 AM ED T 1.0 {tablet} active Vitamin B12 1000 MCG eC W1 ([facility]) Vitamin B12 1000 MCG Vitamin B12 1000 MCG 02/20/2021 12:00:00 AM ED T 1.0 {tablet} active Vitamin B12 1000 MCG eC W1 ([facility]) Vitamin B12 1000 MCG Vitamin B12 1000 MCG 02/20/2021 12:00:00 AM ED T 1.0 {tablet} active Vitamin B12 1000 MCG eC W1 ([facility]) Vitamin B12 1000 MCG Vitamin B12 1000 MCG 02/20/2021 12:00:00 AM ED T 1.0 {tablet} active Vitamin B12 1000 MCG eC W1 ([facility]) Vitamin B12 1000 MCG Vitamin B12 1000 MCG 02/20/2021 12:00:00 AM ED T 1.0 {tablet} active Vitamin B12 1000 MCG eC W1 ([facility]) Vitamin B12 1000 MCG Vitamin B12 1000 MCG 02/20/2021 12:00:00 AM ED T 1.0 {tablet} active Vitamin B12 1000 MCG eC W1 ([facility]) Vitamin B12 1000 MCG Vitamin B12 1000 MCG 02/20/2021 12:00:00 AM ED T 1.0 {tablet} active Vitamin B12 1000 MCG eC W1 ([facility]) Vitamin B12 1000 MCG Vitamin B12 1000 MCG 02/20/2021 12:00:00 AM ED T 1.0 {tablet} active Vitamin B12 1000 MCG eC W1 ([facility]) Vitamin B12 1000 MCG Vitamin B12 1000 MCG 02/20/2021 12:00:00 AM ED T 1.0 {tablet} active eCW1 ([facility]) Vitamin B12 1000 MCG Vitamin B12 1000 MCG 02/20/2021 12:00:00 AM ED T 1.0 {tablet} active Vitamin B12 1000 MCG eC W1 ([facility]) Vitamin B12 1000 MCG Vitamin B12 1000 MCG 02/20/2021 12:00:00 AM ED T 1.0 {tablet} active Vitamin B12 1000 MCG eC W1 ([facility]) Vitamin B12 1000 MCG Vitamin B12 1000 MCG 02/20/2021 12:00:00 AM ED T 1.0 {tablet} active Vitamin B12 1000 MCG eC W1 ([facility]) Vitamin B12 1000 MCG Vitamin B12 1000 MCG 02/20/2021 12:00:00 AM ED T 1.0 {tablet} active Vitamin B12 1000 MCG eC W1 ([facility]) Vitamin B12 1000 MCG Vitamin B12 1000 MCG 02/20/2021 12:00:00 AM ED T 1.0 {tablet} active Vitamin B12 1000 MCG eC W1 ([facility]) Vitamin B12 1000 MCG Vitamin B12 1000 MCG 02/20/2021 12:00:00 AM ED T 1.0 {tablet} active Vitamin B12 1000 MCG eC W1 ([facility]) Vitamin B12 1000 MCG Vitamin B12 1000 MCG 02/20/2021 12:00:00 AM ED T 1.0 {tablet} active Vitamin B12 1000 MCG eC W1 ([facility]) Vitamin B12 1000 MCG Vitamin B12 1000 MCG 02/20/2021 12:00:00 AM ED T 1.0 {tablet} active Vitamin B12 1000 MCG eC W1 ([facility]) Vitamin B12 1000 MCG Vitamin B12 1000 MCG 02/20/2021 12:00:00 AM ED T 1.0 {tablet} active Vitamin B12 1000 MCG eC W1 ([facility]) Vitamin B12 1000 MCG Vitamin B12 1000 MCG 02/20/2021 12:00:00 AM ED T 1.0 {tablet} active Vitamin B12 1000 MCG eC W1 ([facility]) Vitamin B12 1000 MCG Vitamin B12 1000 MCG 02/20/2021 12:00:00 AM ED T 1.0 {tablet} active Vitamin B12 1000 MCG eC W1 ([facility]) Vitamin B12 1000 MCG Vitamin B12 1000 MCG 02/20/2021 12:00:00 AM ED T 1.0 {tablet} active Vitamin B12 1000 MCG eC W1 ([facility]) Vitamin B12 1000 MCG Vitamin B12 1000 MCG 02/20/2021 12:00:00 AM ED T 1.0 {tablet} active Vitamin B12 1000 MCG eC W1 ([facility]) Prednisone 20 MG Oral Tablet predniSONE 20 MG predniSONE 20 MG 11/07/2020 12:00:00 AM EDT suspended predn iSONE 20 MG eCW1 ([facility]) Prednisone 20 MG Oral Tablet predniSONE 20 MG predniSONE 20 MG 11/07/2020 12:00:00 AM EDT suspended predn iSONE 20 MG eCW1 ([facility]) Prednisone 20 MG Oral Tablet PredniSONE 20 MG PredniSONE 20 MG 11/07/2020 12:00:00 AM EDT active PredniSO NE 20 MG eCW1 ([facility]) Prednisone 20 MG Oral Tablet predniSONE 20 MG predniSONE 20 MG 11/07/2020 12:00:00 AM EDT suspended predn iSONE 20 MG eCW1 ([facility]) Prednisone 20 MG Oral Tablet predniSONE 20 MG predniSONE 20 MG 11/07/2020 12:00:00 AM EDT suspended predn iSONE 20 MG eCW1 ([facility]) Prednisone 20 MG Oral Tablet predniSONE 20 MG predniSONE 20 MG 11/07/2020 12:00:00 AM EDT suspended predn iSONE 20 MG eCW1 ([facility]) Prednisone 20 MG Oral Tablet predniSONE 20 MG predniSONE 20 MG 11/07/2020 12:00:00 AM EDT suspended predn iSONE 20 MG eCW1 ([facility]) Prednisone 20 MG Oral Tablet predniSONE 20 MG predniSONE 20 MG 11/07/2020 12:00:00 AM EDT suspended predn iSONE 20 MG eCW1 ([facility]) Prednisone 20 MG Oral Tablet predniSONE 20 MG predniSONE 20 MG 11/07/2020 12:00:00 AM EDT suspended predn iSONE 20 MG eCW1 ([facility]) Prednisone 20 MG Oral Tablet predniSONE 20 MG predniSONE 20 MG 11/07/2020 12:00:00 AM EDT suspended predn iSONE 20 MG eCW1 ([facility]) Prednisone 20 MG Oral Tablet predniSONE 20 MG predniSONE 20 MG 11/07/2020 12:00:00 AM EDT suspended predn iSONE 20 MG eCW1 ([facility]) Prednisone 20 MG Oral Tablet predniSONE 20 MG predniSONE 20 MG 11/07/2020 12:00:00 AM EDT suspended predn iSONE 20 MG eCW1 ([facility]) Prednisone 20 MG Oral Tablet predniSONE 20 MG predniSONE 20 MG 11/07/2020 12:00:00 AM EDT suspended eCW1 ([facility]) Prednisone 20 MG Oral Tablet PredniSONE 20 MG PredniSONE 20 MG 11/07/2020 12:00:00 AM EDT active PredniSO NE 20 MG eCW1 ([facility]) Prednisone 20 MG Oral Tablet predniSONE 20 MG predniSONE 20 MG 11/07/2020 12:00:00 AM EDT suspended predn iSONE 20 MG eCW1 ([facility]) Prednisone 20 MG Oral Tablet predniSONE 20 MG predniSONE 20 MG 11/07/2020 12:00:00 AM EDT suspended predn iSONE 20 MG eCW1 ([facility]) Prednisone 20 MG Oral Tablet predniSONE 20 MG predniSONE 20 MG 11/07/2020 12:00:00 AM EDT suspended predn iSONE 20 MG eCW1 ([facility]) Prednisone 20 MG Oral Tablet predniSONE 20 MG predniSONE 20 MG 11/07/2020 12:00:00 AM EDT suspended predn iSONE 20 MG eCW1 ([facility]) 20 mg 11/07/2020 12:00:00 AM EDT tablet 30 TAKE 3 TABLETS BY MOUTH ONCE DAILY FOR 5 DAYS, THEN 2 TABLETS FOR 5 DAYS, THEN 1 TABLET FOR 5 DAYS TAKE 3 TABLETS BY MOUTH ONCE DAILY FOR 5 DAYS, THEN 2 TABLETS FOR 5 DAYS, THEN 1 TABLET FOR 5 DAYS SOLD: 11/07/2020 [facility] Prednisone 20 MG Oral Tablet predniSONE 20 MG predniSONE 20 MG 11/07/2020 12:00:00 AM EDT suspended predn iSONE 20 MG eCW1 ([facility]) Prednisone 20 MG Oral Tablet predniSONE 20 MG predniSONE 20 MG 11/07/2020 12:00:00 AM EDT suspended predn iSONE 20 MG eCW1 ([facility]) Prednisone 20 MG Oral Tablet predniSONE 20 MG predniSONE 20 MG 11/07/2020 12:00:00 AM EDT suspended predn iSONE 20 MG eCW1 ([facility]) gabapentin 100 MG Oral Capsule Gabapentin 100 MG Gabapentin 100 MG 10/24/2020 12:00:00 AM EDT 1.0 {capsule} suspended Gabapentin 100 MG eCW1 ([facility]) gabapentin 100 MG Oral Capsule Gabapentin 100 MG Gabapentin 100 MG 10/24/2020 12:00:00 AM EDT 1.0 {capsule} suspended Gabapentin 100 MG eCW1 ([facility]) gabapentin 100 MG Oral Capsule Gabapentin 100 MG Gabapentin 100 MG 10/24/2020 12:00:00 AM EDT 1.0 {capsule} suspended Gabapentin 100 MG eCW1 ([facility]) gabapentin 100 MG Oral Capsule Gabapentin 100 MG Gabapentin 100 MG 10/24/2020 12:00:00 AM EDT 1.0 {capsule} suspended Gabapentin 100 MG eCW1 ([facility]) gabapentin 100 MG Oral Capsule Gabapentin 100 MG Gabapentin 100 MG 10/24/2020 12:00:00 AM EDT 1.0 {capsule} suspended Gabapentin 100 MG eCW1 ([facility]) gabapentin 100 MG Oral Capsule Gabapentin 100 MG Gabapentin 100 MG 10/24/2020 12:00:00 AM EDT 1.0 {capsule} suspended eCW1 ([facility]) gabapentin 100 MG Oral Capsule Gabapentin 100 MG Gabapentin 100 MG 10/24/2020 12:00:00 AM EDT 1.0 {capsule} suspended Gabapentin 100 MG eCW1 ([facility]) gabapentin 100 MG Oral Capsule Gabapentin 100 MG Gabapentin 100 MG 10/24/2020 12:00:00 AM EDT 1.0 {capsule} suspended Gabapentin 100 MG eCW1 ([facility]) gabapentin 100 MG Oral Capsule Gabapentin 100 MG Gabapentin 100 MG 10/24/2020 12:00:00 AM EDT 1.0 {capsule} active G abapentin 100 MG eCW1 ([facility]) gabapentin 100 MG Oral Capsule Gabapentin 100 MG Gabapentin 100 MG 10/24/2020 12:00:00 AM EDT 1.0 {capsule} suspended Gabapentin 100 MG eCW1 ([facility]) gabapentin 100 MG Oral Capsule Gabapentin 100 MG Gabapentin 100 MG 10/24/2020 12:00:00 AM EDT 1.0 {capsule} suspended Gabapentin 100 MG eCW1 ([facility]) gabapentin 100 MG Oral Capsule Gabapentin 100 MG Gabapentin 100 MG 10/24/2020 12:00:00 AM EDT 1.0 {capsule} suspended Gabapentin 100 MG eCW1 ([facility]) gabapentin 100 MG Oral Capsule Gabapentin 100 MG Gabapentin 100 MG 10/24/2020 12:00:00 AM EDT 1.0 {capsule} suspended Gabapentin 100 MG eCW1 ([facility]) gabapentin 100 MG Oral Capsule Gabapentin 100 MG Gabapentin 100 MG 10/24/2020 12:00:00 AM EDT 1.0 {capsule} suspended Gabapentin 100 MG eCW1 ([facility]) gabapentin 100 MG Oral Capsule Gabapentin 100 MG Gabapentin 100 MG 10/24/2020 12:00:00 AM EDT 1.0 {capsule} suspended Gabapentin 100 MG eCW1 ([facility]) gabapentin 100 MG Oral Capsule Gabapentin 100 MG Gabapentin 100 MG 10/24/2020 12:00:00 AM EDT 1.0 {capsule} suspended Gabapentin 100 MG eCW1 ([facility]) gabapentin 100 MG Oral Capsule Gabapentin 100 MG Gabapentin 100 MG 10/24/2020 12:00:00 AM EDT 1.0 {capsule} suspended Gabapentin 100 MG eCW1 ([facility]) gabapentin 100 MG Oral Capsule Gabapentin 100 MG Gabapentin 100 MG 10/24/2020 12:00:00 AM EDT 1.0 {capsule} suspended Gabapentin 100 MG eCW1 ([facility]) gabapentin 100 MG Oral Capsule Gabapentin 100 MG Gabapentin 100 MG 10/24/2020 12:00:00 AM EDT 1.0 {capsule} suspended Gabapentin 100 MG eCW1 ([facility]) gabapentin 100 MG Oral Capsule Gabapentin 100 MG Gabapentin 100 MG 10/24/2020 12:00:00 AM EDT 1.0 {capsule} suspended Gabapentin 100 MG eCW1 ([facility]) gabapentin 100 MG Oral Capsule Gabapentin 100 MG Gabapentin 100 MG 10/24/2020 12:00:00 AM EDT 1.0 {capsule} suspended Gabapentin 100 MG eCW1 ([facility]) gabapentin 100 MG Oral Capsule Gabapentin 100 MG Gabapentin 100 MG 10/24/2020 12:00:00 AM EDT 1.0 {capsule} suspended Gabapentin 100 MG eCW1 ([facility]) gabapentin 100 MG Oral Capsule Gabapentin 100 MG Gabapentin 100 MG 10/24/2020 12:00:00 AM EDT 1.0 {capsule} suspended Gabapentin 100 MG eCW1 ([facility]) gabapentin 100 MG Oral Capsule Gabapentin 100 MG Gabapentin 100 MG 10/24/2020 12:00:00 AM EDT 1.0 {capsule} suspended Gabapentin 100 MG eCW1 ([facility]) Diclofenac Sodium 0.01 MG/MG Topical Gel [Voltaren] Voltaren 1 % Voltaren 1 % 08/22/2020 12:00:00 AM EST active Voltaren 1 % eCW1 ([facility]) Diclofenac Sodium 0.01 MG/MG Topical Gel [Voltaren] Voltaren 1 % Voltaren 1 % 08/22/2020 12:00:00 AM EST active Voltaren 1 % eCW1 ([facility]) Diclofenac Sodium 0.01 MG/MG Topical Gel [Voltaren] Voltaren 1 % Voltaren 1 % 08/22/2020 12:00:00 AM EST active Voltaren 1 % eCW1 ([facility]) Diclofenac Sodium 0.01 MG/MG Topical Gel [Voltaren] Voltaren 1 % Voltaren 1 % 08/22/2020 12:00:00 AM EST active Voltaren 1 % eCW1 ([facility]) Diclofenac Sodium 0.01 MG/MG Topical Gel [Voltaren] Voltaren 1 % Voltaren 1 % 08/22/2020 12:00:00 AM EST active Voltaren 1 % eCW1 ([facility]) Diclofenac Sodium 0.01 MG/MG Topical Gel [Voltaren] Voltaren 1 % Voltaren 1 % 08/22/2020 12:00:00 AM EST active Voltaren 1 % eCW1 ([facility]) Diclofenac Sodium 0.01 MG/MG Topical Gel [Voltaren] Voltaren 1 % Voltaren 1 % 08/22/2020 12:00:00 AM EST active Voltaren 1 % eCW1 ([facility]) Diclofenac Sodium 0.01 MG/MG Topical Gel [Voltaren] Voltaren 1 % Voltaren 1 % 08/22/2020 12:00:00 AM EST active Voltaren 1 % eCW1 ([facility]) Diclofenac Sodium 0.01 MG/MG Topical Gel [Voltaren] Voltaren 1 % Voltaren 1 % 08/22/2020 12:00:00 AM EST active Voltaren 1 % eCW1 ([facility]) Diclofenac Sodium 0.01 MG/MG Topical Gel [Voltaren] Voltaren 1 % Voltaren 1 % 08/22/2020 12:00:00 AM EST active Voltaren 1 % eCW1 ([facility]) Diclofenac Sodium 0.01 MG/MG Topical Gel [Voltaren] Voltaren 1 % Voltaren 1 % 08/22/2020 12:00:00 AM EST active Voltaren 1 % eCW1 ([facility]) Diclofenac Sodium 0.01 MG/MG Topical Gel [Voltaren] Voltaren 1 % Voltaren 1 % 08/22/2020 12:00:00 AM EST active Voltaren 1 % eCW1 ([facility]) Diclofenac Sodium 0.01 MG/MG Topical Gel [Voltaren] Voltaren 1 % Voltaren 1 % 08/22/2020 12:00:00 AM EST active Voltaren 1 % eCW1 ([facility]) Diclofenac Sodium 0.01 MG/MG Topical Gel [Voltaren] Voltaren 1 % Voltaren 1 % 08/22/2020 12:00:00 AM EST active Voltaren 1 % eCW1 ([facility]) Diclofenac Sodium 0.01 MG/MG Topical Gel [Voltaren] Voltaren 1 % Voltaren 1 % 08/22/2020 12:00:00 AM EST active Voltaren 1 % eCW1 ([facility]) Diclofenac Sodium 0.01 MG/MG Topical Gel [Voltaren] Voltaren 1 % Voltaren 1 % 08/22/2020 12:00:00 AM EST active Voltaren 1 % eCW1 ([facility]) Diclofenac Sodium 0.01 MG/MG Topical Gel [Voltaren] Voltaren 1 % Voltaren 1 % 08/22/2020 12:00:00 AM EST active Voltaren 1 % eCW1 ([facility]) Diclofenac Sodium 0.01 MG/MG Topical Gel [Voltaren] Voltaren 1 % Voltaren 1 % 08/22/2020 12:00:00 AM EST active eCW1 ([facility]) Diclofenac Sodium 0.01 MG/MG Topical Gel [Voltaren] Voltaren 1 % Voltaren 1 % 08/22/2020 12:00:00 AM EST active Voltaren 1 % eCW1 ([facility]) Diclofenac Sodium 0.01 MG/MG Topical Gel [Voltaren] Voltaren 1 % Voltaren 1 % 08/22/2020 12:00:00 AM EST active Voltaren 1 % eCW1 ([facility]) Diclofenac Sodium 0.01 MG/MG Topical Gel [Voltaren] Voltaren 1 % Voltaren 1 % 08/22/2020 12:00:00 AM EST active Voltaren 1 % eCW1 ([facility]) Diclofenac Sodium 0.01 MG/MG Topical Gel [Voltaren] Voltaren 1 % Voltaren 1 % 08/22/2020 12:00:00 AM EST active Voltaren 1 % eCW1 ([facility]) Diclofenac Sodium 0.01 MG/MG Topical Gel [Voltaren] Voltaren 1 % Voltaren 1 % 08/22/2020 12:00:00 AM EST active Voltaren 1 % eCW1 ([facility]) Voltaren 1 % UNK 08/22/2020 12:00:00 AM EST activ e Voltaren 1 % eCW1 ([facility]) Diclofenac Sodium 0.01 MG/MG Topical Gel [Voltaren] Voltaren 1 % Voltaren 1 % 08/22/2020 12:00:00 AM EST active Voltaren 1 % eCW1 ([facility]) 1 % 08/22/2020 12:00:00 AM EST gel 100 APPLY 4 GRAMS TO [employer] [facility] EVERY 8 HOURS NEEDED FOR 10 DAYS APPLY 4 GRAMS TO [employer] [facility] EVERY 8 HOURS NEEDED FOR 10 DAYS SOLD: 08/23/2020 [facility] Diclofenac Sodium 0.01 MG/MG Topical Gel [Voltaren] Voltaren 1 % Voltaren 1 % 08/22/2020 12:00:00 AM EST active Voltaren 1 % eCW1 ([facility]) Voltaren 1 % UNK 08/22/2020 12:00:00 AM EST activ e Voltaren 1 % eCW1 ([facility]) Diclofenac Sodium 0.01 MG/MG Topical Gel [Voltaren] Voltaren 1 % Voltaren 1 % 08/22/2020 12:00:00 AM EST active Voltaren 1 % eCW1 ([facility]) Diclofenac Sodium 0.01 MG/MG Topical Gel [Voltaren] Voltaren 1 % Voltaren 1 % 08/22/2020 12:00:00 AM EST active Voltaren 1 % eCW1 ([facility]) Diclofenac Sodium 0.01 MG/MG Topical Gel [Voltaren] Voltaren 1 % Voltaren 1 % 08/22/2020 12:00:00 AM EST active Voltaren 1 % eCW1 ([facility]) Diclofenac Sodium 0.01 MG/MG Topical Gel [Voltaren] Voltaren 1 % Voltaren 1 % 08/22/2020 12:00:00 AM EST active Voltaren 1 % eCW1 ([facility]) Diclofenac Sodium 0.01 MG/MG Topical Gel [Voltaren] Voltaren 1 % Voltaren 1 % 08/22/2020 12:00:00 AM EST active Voltaren 1 % eCW1 ([facility]) 75 mg 08/14/2020 12:00:00 AM EST tablet 90 TAKE ONE TABLET BY MOUTH EVERY DAY TAKE ONE TABLET BY MOUTH EVERY DAY SOLD: 08/14/2020 [facility] cefdinir 300 MG Oral Capsule Cefdinir 300 MG Cefdinir 300 MG 07/15/2020 12:00:00 AM EST suspended Cefdinir 300 MG eCW1 ([facility]) cefdinir 300 MG Oral Capsule Cefdinir 300 MG Cefdinir 300 MG 07/15/2020 12:00:00 AM EST suspended Cefdinir 300 MG eCW1 ([facility]) cefdinir 300 MG Oral Capsule Cefdinir 300 MG Cefdinir 300 MG 07/15/2020 12:00:00 AM EST suspended Cefdinir 300 MG eCW1 ([facility]) cefdinir 300 MG Oral Capsule Cefdinir 300 MG Cefdinir 300 MG 07/15/2020 12:00:00 AM EST suspended Cefdinir 300 MG eCW1 ([facility]) cefdinir 300 MG Oral Capsule Cefdinir 300 MG Cefdinir 300 MG 07/15/2020 12:00:00 AM EST suspended Cefdinir 300 MG eCW1 ([facility]) 300 mg 07/15/2020 12:00:00 AM EST capsule 20 TAKE ONE CAPSULE BY MOUTH TWICE A DAY FOR 10 DAYS TAKE ONE CAPSULE BY MOUTH TWICE A DAY FOR 10 DAYS SOLD : 07/15/2020 [facility] cefdinir 300 MG Oral Capsule Cefdinir 300 MG Cefdinir 300 MG 07/15/2020 12:00:00 AM EST suspended Cefdinir 300 MG eCW1 ([facility]) cefdinir 300 MG Oral Capsule Cefdinir 300 MG Cefdinir 300 MG 07/15/2020 12:00:00 AM EST suspended Cefdinir 300 MG eCW1 ([facility]) cefdinir 300 MG Oral Capsule Cefdinir 300 MG Cefdinir 300 MG 07/15/2020 12:00:00 AM EST suspended Cefdinir 300 MG eCW1 ([facility]) cefdinir 300 MG Oral Capsule Cefdinir 300 MG Cefdinir 300 MG 07/15/2020 12:00:00 AM EST suspended Cefdinir 300 MG eCW1 ([facility]) cefdinir 300 MG Oral Capsule Cefdinir 300 MG Cefdinir 300 MG 07/15/2020 12:00:00 AM EST suspended Cefdinir 300 MG eCW1 ([facility]) cefdinir 300 MG Oral Capsule Cefdinir 300 MG Cefdinir 300 MG 07/15/2020 12:00:00 AM EST suspended Cefdinir 300 MG eCW1 ([facility]) cefdinir 300 MG Oral Capsule Cefdinir 300 MG Cefdinir 300 MG 07/15/2020 12:00:00 AM EST suspended Cefdinir 300 MG eCW1 ([facility]) cefdinir 300 MG Oral Capsule Cefdinir 300 MG Cefdinir 300 MG 07/15/2020 12:00:00 AM EST suspended Cefdinir 300 MG eCW1 ([facility]) cefdinir 300 MG Oral Capsule Cefdinir 300 MG Cefdinir 300 MG 07/15/2020 12:00:00 AM EST suspended Cefdinir 300 MG eCW1 ([facility]) cefdinir 300 MG Oral Capsule Cefdinir 300 MG Cefdinir 300 MG 07/15/2020 12:00:00 AM EST suspended Cefdinir 300 MG eCW1 ([facility]) cefdinir 300 MG Oral Capsule Cefdinir 300 MG Cefdinir 300 MG 07/15/2020 12:00:00 AM EST suspended Cefdinir 300 MG eCW1 ([facility]) cefdinir 300 MG Oral Capsule Cefdinir 300 MG Cefdinir 300 MG 07/15/2020 12:00:00 AM EST suspended Cefdinir 300 MG eCW1 ([facility]) cefdinir 300 MG Oral Capsule Cefdinir 300 MG Cefdinir 300 MG 07/15/2020 12:00:00 AM EST suspended Cefdinir 300 MG eCW1 ([facility]) cefdinir 300 MG Oral Capsule Cefdinir 300 MG Cefdinir 300 MG 07/15/2020 12:00:00 AM EST suspended Cefdinir 300 MG eCW1 ([facility]) cefdinir 300 MG Oral Capsule Cefdinir 300 MG Cefdinir 300 MG 07/15/2020 12:00:00 AM EST suspended Cefdinir 300 MG eCW1 ([facility]) cefdinir 300 MG Oral Capsule Cefdinir 300 MG Cefdinir 300 MG 07/15/2020 12:00:00 AM EST suspended Cefdinir 300 MG eCW1 ([facility]) cefdinir 300 MG Oral Capsule Cefdinir 300 MG Cefdinir 300 MG 07/15/2020 12:00:00 AM EST suspended Cefdinir 300 MG eCW1 ([facility]) cefdinir 300 MG Oral Capsule Cefdinir 300 MG Cefdinir 300 MG 07/15/2020 12:00:00 AM EST suspended Cefdinir 300 MG eCW1 ([facility]) cefdinir 300 MG Oral Capsule Cefdinir 300 MG Cefdinir 300 MG 07/15/2020 12:00:00 AM EST suspended Cefdinir 300 MG eCW1 ([facility]) cefdinir 300 MG Oral Capsule Cefdinir 300 MG Cefdinir 300 MG 07/15/2020 12:00:00 AM EST active Cefdinir 300 MG eCW1 ([facility]) cefdinir 300 MG Oral Capsule Cefdinir 300 MG Cefdinir 300 MG 07/15/2020 12:00:00 AM EST suspended Cefdinir 300 MG eCW1 ([facility]) cefdinir 300 MG Oral Capsule Cefdinir 300 MG Cefdinir 300 MG 07/15/2020 12:00:00 AM EST suspended Cefdinir 300 MG eCW1 ([facility]) cefdinir 300 MG Oral Capsule Cefdinir 300 MG Cefdinir 300 MG 07/15/2020 12:00:00 AM EST suspended Cefdinir 300 MG eCW1 ([facility]) cefdinir 300 MG Oral Capsule Cefdinir 300 MG Cefdinir 300 MG 07/15/2020 12:00:00 AM EST suspended Cefdinir 300 MG eCW1 ([facility]) cefdinir 300 MG Oral Capsule Cefdinir 300 MG Cefdinir 300 MG 07/15/2020 12:00:00 AM EST suspended Cefdinir 300 MG eCW1 ([facility]) cefdinir 300 MG Oral Capsule Cefdinir 300 MG Cefdinir 300 MG 07/15/2020 12:00:00 AM EST suspended eCW1 ( [facility]) cefdinir 300 MG Oral Capsule Cefdinir 300 MG Cefdinir 300 MG 07/15/2020 12:00:00 AM EST suspended Cefdinir 300 MG eCW1 ([facility]) cefdinir 300 MG Oral Capsule Cefdinir 300 MG Cefdinir 300 MG 07/15/2020 12:00:00 AM EST suspended Cefdinir 300 MG eCW1 ([facility]) cefdinir 300 MG Oral Capsule Cefdinir 300 MG Cefdinir 300 MG 07/15/2020 12:00:00 AM EST suspended Cefdinir 300 MG eCW1 ([facility]) cefdinir 300 MG Oral Capsule Cefdinir 300 MG Cefdinir 300 MG 07/15/2020 12:00:00 AM EST suspended Cefdinir 300 MG eCW1 ([facility]) atorvastatin 40 MG Oral Tablet Atorvastatin Calcium 40 MG Atorvastatin Calcium 40 MG 05/07/2020 12:00:00 AM EST 1.0 {tablet} activ e Atorvastatin Calcium 40 MG eCW1 ([facility]) clopidogrel 75 MG Oral Tablet Clopidogrel Bisulfate 75 MG Clopidogrel Bisulfate 75 MG 05/07/2020 12:00:00 AM EST 1.0 {tablet} activ e Clopidogrel Bisulfate 75 MG eCW1 ([facility]) clopidogrel 75 MG Oral Tablet Clopidogrel Bisulfate 75 MG Clopidogrel Bisulfate 75 MG 05/07/2020 12:00:00 AM EST 1.0 {tablet} activ e Clopidogrel Bisulfate 75 MG eCW1 ([facility]) clopidogrel 75 MG Oral Tablet Clopidogrel Bisulfate 75 MG Clopidogrel Bisulfate 75 MG 05/07/2020 12:00:00 AM EST 1.0 {tablet} activ e Clopidogrel Bisulfate 75 MG eCW1 ([facility]) Aspirin 81 MG Delayed Release Oral Tablet Aspirin 81 MG 05/07/2020 12:00:00 AM EST 1.0 {tablet} active Aspirin 81 MG eCW1 ([facility]) atorvastatin 40 MG Oral Tablet Atorvastatin Calcium 40 MG Atorvastatin Calcium 40 MG 05/07/2020 12:00:00 AM EST 1.0 {tablet} activ e Atorvastatin Calcium 40 MG eCW1 ([facility]) atorvastatin 40 MG Oral Tablet Atorvastatin Calcium 40 MG Atorvastatin Calcium 40 MG 05/07/2020 12:00:00 AM EST 1.0 {tablet} activ e Atorvastatin Calcium 40 MG eCW1 ([facility]) Aspirin 81 MG Delayed Release Oral Tablet Aspirin 81 MG 05/07/2020 12:00:00 AM EST 1.0 {tablet} active Aspirin 81 MG eCW1 ([facility]) clopidogrel 75 MG Oral Tablet Clopidogrel Bisulfate 75 MG Clopidogrel Bisulfate 75 MG 05/07/2020 12:00:00 AM EST 1.0 {tablet} activ e Clopidogrel Bisulfate 75 MG eCW1 ([facility]) atorvastatin 40 MG Oral Tablet Atorvastatin Calcium 40 MG Atorvastatin Calcium 40 MG 05/07/2020 12:00:00 AM EST 1.0 {tablet} activ e Atorvastatin Calcium 40 MG eCW1 ([facility]) atorvastatin 40 MG Oral Tablet Atorvastatin Calcium 40 MG Atorvastatin Calcium 40 MG 05/07/2020 12:00:00 AM EST 1.0 {tablet} activ e Atorvastatin Calcium 40 MG eCW1 ([facility]) atorvastatin 40 MG Oral Tablet Atorvastatin Calcium 40 MG Atorvastatin Calcium 40 MG 05/07/2020 12:00:00 AM EST 1.0 {tablet} activ e Atorvastatin Calcium 40 MG eCW1 ([facility]) clopidogrel 75 MG Oral Tablet Clopidogrel Bisulfate 75 MG Clopidogrel Bisulfate 75 MG 05/07/2020 12:00:00 AM EST 1.0 {tablet} activ e Clopidogrel Bisulfate 75 MG eCW1 ([facility]) atorvastatin 40 MG Oral Tablet Atorvastatin Calcium 40 MG Atorvastatin Calcium 40 MG 05/07/2020 12:00:00 AM EST 1.0 {tablet} activ e Atorvastatin Calcium 40 MG eCW1 ([facility]) clopidogrel 75 MG Oral Tablet Clopidogrel Bisulfate 75 MG Clopidogrel Bisulfate 75 MG 05/07/2020 12:00:00 AM EST 1.0 {tablet} activ e Clopidogrel Bisulfate 75 MG eCW1 ([facility]) Aspirin 81 MG Delayed Release Oral Tablet Aspirin 81 MG 05/07/2020 12:00:00 AM EST 1.0 {tablet} active Aspirin 81 MG eCW1 ([facility]) atorvastatin 40 MG Oral Tablet Atorvastatin Calcium 40 MG Atorvastatin Calcium 40 MG 05/07/2020 12:00:00 AM EST 1.0 {tablet} activ e Atorvastatin Calcium 40 MG eCW1 ([facility]) Aspirin 81 MG Delayed Release Oral Tablet Aspirin 81 MG 05/07/2020 12:00:00 AM EST 1.0 {tablet} active Aspirin 81 MG eCW1 ([facility]) Aspirin 81 MG Delayed Release Oral Tablet Aspirin 81 MG 05/07/2020 12:00:00 AM EST 1.0 {tablet} active Aspirin 81 MG eCW1 ([facility]) Aspirin 81 MG Delayed Release Oral Tablet Aspirin 81 MG 05/07/2020 12:00:00 AM EST 1.0 {tablet} active Aspirin 81 MG eCW1 ([facility]) clopidogrel 75 MG Oral Tablet Clopidogrel Bisulfate 75 MG Clopidogrel Bisulfate 75 MG 05/07/2020 12:00:00 AM EST 1.0 {tablet} activ e Clopidogrel Bisulfate 75 MG eCW1 ([facility]) clopidogrel 75 MG Oral Tablet Clopidogrel Bisulfate 75 MG Clopidogrel Bisulfate 75 MG 05/07/2020 12:00:00 AM EST 1.0 {tablet} activ e Clopidogrel Bisulfate 75 MG eCW1 ([facility]) clopidogrel 75 MG Oral Tablet Clopidogrel Bisulfate 75 MG Clopidogrel Bisulfate 75 MG 05/07/2020 12:00:00 AM EST 1.0 {tablet} activ e Clopidogrel Bisulfate 75 MG eCW1 ([facility]) Aspirin 81 MG Delayed Release Oral Tablet Aspirin 81 MG 05/07/2020 12:00:00 AM EST 1.0 {tablet} active Aspirin 81 MG eCW1 ([facility]) atorvastatin 40 MG Oral Tablet Atorvastatin Calcium 40 MG Atorvastatin Calcium 40 MG 05/07/2020 12:00:00 AM EST 1.0 {tablet} activ e Atorvastatin Calcium 40 MG eCW1 ([facility]) clopidogrel 75 MG Oral Tablet Clopidogrel Bisulfate 75 MG Clopidogrel Bisulfate 75 MG 05/07/2020 12:00:00 AM EST 1.0 {tablet} activ e Clopidogrel Bisulfate 75 MG eCW1 ([facility]) Aspirin 81 MG Delayed Release Oral Tablet Aspirin 81 MG 05/07/2020 12:00:00 AM EST 1.0 {tablet} active Aspirin 81 MG eCW1 ([facility]) atorvastatin 40 MG Oral Tablet Atorvastatin Calcium 40 MG Atorvastatin Calcium 40 MG 05/07/2020 12:00:00 AM EST 1.0 {tablet} activ e Atorvastatin Calcium 40 MG eCW1 ([facility]) Aspirin 81 MG Delayed Release Oral Tablet Aspirin 81 MG 05/07/2020 12:00:00 AM EST 1.0 {tablet} active eCW1 ([facility]) Aspirin 81 MG Delayed Release Oral Tablet Aspirin 81 MG 05/07/2020 12:00:00 AM EST 1.0 {tablet} active Aspirin 81 MG eCW1 ([facility]) atorvastatin 40 MG Oral Tablet Atorvastatin Calcium 40 MG Atorvastatin Calcium 40 MG 05/07/2020 12:00:00 AM EST 1.0 {tablet} activ e Atorvastatin Calcium 40 MG eCW1 ([facility]) clopidogrel 75 MG Oral Tablet Clopidogrel Bisulfate 75 MG Clopidogrel Bisulfate 75 MG 05/07/2020 12:00:00 AM EST 1.0 {tablet} activ e Clopidogrel Bisulfate 75 MG eCW1 ([facility]) Aspirin 81 MG Delayed Release Oral Tablet Aspirin 81 MG 05/07/2020 12:00:00 AM EST 1.0 {tablet} active Aspirin 81 MG eCW1 ([facility]) clopidogrel 75 MG Oral Tablet Clopidogrel Bisulfate 75 MG Clopidogrel Bisulfate 75 MG 05/07/2020 12:00:00 AM EST 1.0 {tablet} activ e Clopidogrel Bisulfate 75 MG eCW1 ([facility]) atorvastatin 40 MG Oral Tablet Atorvastatin Calcium 40 MG Atorvastatin Calcium 40 MG 05/07/2020 12:00:00 AM EST 1.0 {tablet} activ e Atorvastatin Calcium 40 MG eCW1 ([facility]) atorvastatin 40 MG Oral Tablet Atorvastatin Calcium 40 MG Atorvastatin Calcium 40 MG 05/07/2020 12:00:00 AM EST 1.0 {tablet} activ e Atorvastatin Calcium 40 MG eCW1 ([facility]) atorvastatin 40 MG Oral Tablet Atorvastatin Calcium 40 MG Atorvastatin Calcium 40 MG 05/07/2020 12:00:00 AM EST 1.0 {tablet} activ e Atorvastatin Calcium 40 MG eCW1 ([facility]) Aspirin 81 MG Delayed Release Oral Tablet Aspirin 81 MG 05/07/2020 12:00:00 AM EST 1.0 {tablet} active Aspirin 81 MG eCW1 ([facility]) Aspirin 81 MG Delayed Release Oral Tablet Aspirin 81 MG 05/07/2020 12:00:00 AM EST 1.0 {tablet} active Aspirin 81 MG eCW1 ([facility]) Aspirin 81 MG Delayed Release Oral Tablet Aspirin 81 MG 05/07/2020 12:00:00 AM EST 1.0 {tablet} active Aspirin 81 MG eCW1 ([facility]) atorvastatin 40 MG Oral Tablet Atorvastatin Calcium 40 MG Atorvastatin Calcium 40 MG 05/07/2020 12:00:00 AM EST 1.0 {tablet} activ e Atorvastatin Calcium 40 MG eCW1 ([facility]) atorvastatin 40 MG Oral Tablet Atorvastatin Calcium 40 MG Atorvastatin Calcium 40 MG 05/07/2020 12:00:00 AM EST 1.0 {tablet} activ e Atorvastatin Calcium 40 MG eCW1 ([facility]) clopidogrel 75 MG Oral Tablet Clopidogrel Bisulfate 75 MG Clopidogrel Bisulfate 75 MG 05/07/2020 12:00:00 AM EST 1.0 {tablet} activ e Clopidogrel Bisulfate 75 MG eCW1 ([facility]) 75 mg 05/07/2020 12:00:00 AM EST tablet 90 TAKE ONE TABLET BY MOUTH EVERY DAY TAKE ONE TABLET BY MOUTH EVERY DAY SOLD: 05/07/2020 [facility] atorvastatin 40 MG Oral Tablet Atorvastatin Calcium 40 MG Atorvastatin Calcium 40 MG 05/07/2020 12:00:00 AM EST 1.0 {tablet} activ e Atorvastatin Calcium 40 MG eCW1 ([facility]) Aspirin 81 MG Delayed Release Oral Tablet Aspirin 81 MG 05/07/2020 12:00:00 AM EST 1.0 {tablet} active Aspirin 81 MG eCW1 ([facility]) atorvastatin 40 MG Oral Tablet Atorvastatin Calcium 40 MG Atorvastatin Calcium 40 MG 05/07/2020 12:00:00 AM EST 1.0 {tablet} activ e Atorvastatin Calcium 40 MG eCW1 ([facility]) clopidogrel 75 MG Oral Tablet Clopidogrel Bisulfate 75 MG Clopidogrel Bisulfate 75 MG 05/07/2020 12:00:00 AM EST 1.0 {tablet} activ e Clopidogrel Bisulfate 75 MG eCW1 ([facility]) clopidogrel 75 MG Oral Tablet Clopidogrel Bisulfate 75 MG Clopidogrel Bisulfate 75 MG 05/07/2020 12:00:00 AM EST 1.0 {tablet} activ e Clopidogrel Bisulfate 75 MG eCW1 ([facility]) atorvastatin 40 MG Oral Tablet Atorvastatin Calcium 40 MG Atorvastatin Calcium 40 MG 05/07/2020 12:00:00 AM EST 1.0 {tablet} activ e Atorvastatin Calcium 40 MG eCW1 ([facility]) clopidogrel 75 MG Oral Tablet Clopidogrel Bisulfate 75 MG Clopidogrel Bisulfate 75 MG 05/07/2020 12:00:00 AM EST 1.0 {tablet} activ e Clopidogrel Bisulfate 75 MG eCW1 ([facility]) Aspirin 81 MG Delayed Release Oral Tablet Aspirin 81 MG 05/07/2020 12:00:00 AM EST 1.0 {tablet} active Aspirin 81 MG eCW1 ([facility]) Aspirin 81 MG Delayed Release Oral Tablet Aspirin 81 MG 05/07/2020 12:00:00 AM EST 1.0 {tablet} active Aspirin 81 MG eCW1 ([facility]) Aspirin 81 MG Delayed Release Oral Tablet Aspirin 81 MG 05/07/2020 12:00:00 AM EST 1.0 {tablet} active Aspirin 81 MG eCW1 ([facility]) Aspirin 81 MG Delayed Release Oral Tablet Aspirin 81 MG 05/07/2020 12:00:00 AM EST 1.0 {tablet} active Aspirin 81 MG eCW1 ([facility]) atorvastatin 40 MG Oral Tablet Atorvastatin Calcium 40 MG Atorvastatin Calcium 40 MG 05/07/2020 12:00:00 AM EST 1.0 {tablet} activ e Atorvastatin Calcium 40 MG eCW1 ([facility]) atorvastatin 40 MG Oral Tablet Atorvastatin Calcium 40 MG Atorvastatin Calcium 40 MG 05/07/2020 12:00:00 AM EST 1.0 {tablet} activ e Atorvastatin Calcium 40 MG eCW1 ([facility]) atorvastatin 40 MG Oral Tablet Atorvastatin Calcium 40 MG Atorvastatin Calcium 40 MG 05/07/2020 12:00:00 AM EST 1.0 {tablet} activ e Atorvastatin Calcium 40 MG eCW1 ([facility]) Aspirin 81 MG Delayed Release Oral Tablet Aspirin 81 MG 05/07/2020 12:00:00 AM EST 1.0 {tablet} active Aspirin 81 MG eCW1 ([facility]) clopidogrel 75 MG Oral Tablet Clopidogrel Bisulfate 75 MG Clopidogrel Bisulfate 75 MG 05/07/2020 12:00:00 AM EST 1.0 {tablet} activ e Clopidogrel Bisulfate 75 MG eCW1 ([facility]) Aspirin 81 MG Delayed Release Oral Tablet Aspirin 81 MG 05/07/2020 12:00:00 AM EST 1.0 {tablet} active Aspirin 81 MG eCW1 ([facility]) atorvastatin 40 MG Oral Tablet Atorvastatin Calcium 40 MG Atorvastatin Calcium 40 MG 05/07/2020 12:00:00 AM EST 1.0 {tablet} activ e Atorvastatin Calcium 40 MG eCW1 ([facility]) atorvastatin 40 MG Oral Tablet Atorvastatin Calcium 40 MG Atorvastatin Calcium 40 MG 05/07/2020 12:00:00 AM EST 1.0 {tablet} activ e Atorvastatin Calcium 40 MG eCW1 ([facility]) atorvastatin 40 MG Oral Tablet Atorvastatin Calcium 40 MG Atorvastatin Calcium 40 MG 05/07/2020 12:00:00 AM EST 1.0 {tablet} activ e Atorvastatin Calcium 40 MG eCW1 ([facility]) atorvastatin 40 MG Oral Tablet Atorvastatin Calcium 40 MG Atorvastatin Calcium 40 MG 05/07/2020 12:00:00 AM EST 1.0 {tablet} activ e Atorvastatin Calcium 40 MG eCW1 ([facility]) clopidogrel 75 MG Oral Tablet Clopidogrel Bisulfate 75 MG Clopidogrel Bisulfate 75 MG 05/07/2020 12:00:00 AM EST 1.0 {tablet} activ e Clopidogrel Bisulfate 75 MG eCW1 ([facility]) clopidogrel 75 MG Oral Tablet Clopidogrel Bisulfate 75 MG Clopidogrel Bisulfate 75 MG 05/07/2020 12:00:00 AM EST 1.0 {tablet} activ e Clopidogrel Bisulfate 75 MG eCW1 ([facility]) Aspirin 81 MG Delayed Release Oral Tablet Aspirin 81 MG 05/07/2020 12:00:00 AM EST 1.0 {tablet} active Aspirin 81 MG eCW1 ([facility]) clopidogrel 75 MG Oral Tablet Clopidogrel Bisulfate 75 MG Clopidogrel Bisulfate 75 MG 05/07/2020 12:00:00 AM EST 1.0 {tablet} activ e Clopidogrel Bisulfate 75 MG eCW1 ([facility]) Aspirin 81 MG Delayed Release Oral Tablet Aspirin 81 MG 05/07/2020 12:00:00 AM EST 1.0 {tablet} active Aspirin 81 MG eCW1 ([facility]) clopidogrel 75 MG Oral Tablet Clopidogrel Bisulfate 75 MG Clopidogrel Bisulfate 75 MG 05/07/2020 12:00:00 AM EST 1.0 {tablet} activ e Clopidogrel Bisulfate 75 MG eCW1 ([facility]) Aspirin 81 MG Delayed Release Oral Tablet Aspirin 81 MG 05/07/2020 12:00:00 AM EST 1.0 {tablet} active Aspirin 81 MG eCW1 ([facility]) atorvastatin 40 MG Oral Tablet Atorvastatin Calcium 40 MG Atorvastatin Calcium 40 MG 05/07/2020 12:00:00 AM EST 1.0 {tablet} activ e Atorvastatin Calcium 40 MG eCW1 ([facility]) clopidogrel 75 MG Oral Tablet Clopidogrel Bisulfate 75 MG Clopidogrel Bisulfate 75 MG 05/07/2020 12:00:00 AM EST 1.0 {tablet} activ e Clopidogrel Bisulfate 75 MG eCW1 ([facility]) atorvastatin 40 MG Oral Tablet Atorvastatin Calcium 40 MG Atorvastatin Calcium 40 MG 05/07/2020 12:00:00 AM EST 1.0 {tablet} activ e Atorvastatin Calcium 40 MG eCW1 ([facility]) Aspirin 81 MG Delayed Release Oral Tablet Aspirin 81 MG 05/07/2020 12:00:00 AM EST 1.0 {tablet} active Aspirin 81 MG eCW1 ([facility]) Aspirin 81 MG Delayed Release Oral Tablet Aspirin 81 MG 05/07/2020 12:00:00 AM EST 1.0 {tablet} active Aspirin 81 MG eCW1 ([facility]) Aspirin 81 MG Delayed Release Oral Tablet Aspirin 81 MG 05/07/2020 12:00:00 AM EST 1.0 {tablet} active Aspirin 81 MG eCW1 ([facility]) clopidogrel 75 MG Oral Tablet Clopidogrel Bisulfate 75 MG Clopidogrel Bisulfate 75 MG 05/07/2020 12:00:00 AM EST 1.0 {tablet} activ e Clopidogrel Bisulfate 75 MG eCW1 ([facility]) Aspirin 81 MG Delayed Release Oral Tablet Aspirin 81 MG 05/07/2020 12:00:00 AM EST 1.0 {tablet} active Aspirin 81 MG eCW1 ([facility]) Aspirin 81 MG Delayed Release Oral Tablet Aspirin 81 MG 05/07/2020 12:00:00 AM EST 1.0 {tablet} active Aspirin 81 MG eCW1 ([facility]) Aspirin 81 MG Delayed Release Oral Tablet Aspirin 81 MG 05/07/2020 12:00:00 AM EST 1.0 {tablet} active Aspirin 81 MG eCW1 ([facility]) Aspirin 81 MG Delayed Release Oral Tablet Aspirin 81 MG 05/07/2020 12:00:00 AM EST 1.0 {tablet} active Aspirin 81 MG eCW1 ([facility]) clopidogrel 75 MG Oral Tablet Clopidogrel Bisulfate 75 MG Clopidogrel Bisulfate 75 MG 05/07/2020 12:00:00 AM EST 1.0 {tablet} activ e Clopidogrel Bisulfate 75 MG eCW1 ([facility]) clopidogrel 75 MG Oral Tablet Clopidogrel Bisulfate 75 MG Clopidogrel Bisulfate 75 MG 05/07/2020 12:00:00 AM EST 1.0 {tablet} activ e Clopidogrel Bisulfate 75 MG eCW1 ([facility]) Aspirin 81 MG Delayed Release Oral Tablet Aspirin 81 MG 05/07/2020 12:00:00 AM EST 1.0 {tablet} active Aspirin 81 MG eCW1 ([facility]) clopidogrel 75 MG Oral Tablet Clopidogrel Bisulfate 75 MG Clopidogrel Bisulfate 75 MG 05/07/2020 12:00:00 AM EST 1.0 {tablet} activ e Clopidogrel Bisulfate 75 MG eCW1 ([facility]) atorvastatin 40 MG Oral Tablet Atorvastatin Calcium 40 MG Atorvastatin Calcium 40 MG 05/07/2020 12:00:00 AM EST 1.0 {tablet} activ e Atorvastatin Calcium 40 MG eCW1 ([facility]) atorvastatin 40 MG Oral Tablet ATORVASTATIN CALCIUM 05/07/2020 1 2:00:00 AM EST tablet 90 TAKE ONE TABLET BY MOUTH EVERY D AY TAKE ONE TABLET BY MOUTH EVERY DAY SOLD: 05/07/2020 [facility] clopidogrel 75 MG Oral Tablet Clopidogrel Bisulfate 75 MG Clopidogrel Bisulfate 75 MG 05/07/2020 12:00:00 AM EST 1.0 {tablet} activ e Clopidogrel Bisulfate 75 MG eCW1 ([facility]) clopidogrel 75 MG Oral Tablet Clopidogrel Bisulfate 75 MG Clopidogrel Bisulfate 75 MG 05/07/2020 12:00:00 AM EST 1.0 {tablet} activ e Clopidogrel Bisulfate 75 MG eCW1 ([facility]) atorvastatin 40 MG Oral Tablet Atorvastatin Calcium 40 MG Atorvastatin Calcium 40 MG 05/07/2020 12:00:00 AM EST 1.0 {tablet} activ e Atorvastatin Calcium 40 MG eCW1 ([facility]) atorvastatin 40 MG Oral Tablet Atorvastatin Calcium 40 MG Atorvastatin Calcium 40 MG 05/07/2020 12:00:00 AM EST 1.0 {tablet} activ e Atorvastatin Calcium 40 MG eCW1 ([facility]) clopidogrel 75 MG Oral Tablet Clopidogrel Bisulfate 75 MG Clopidogrel Bisulfate 75 MG 05/07/2020 12:00:00 AM EST 1.0 {tablet} activ e Clopidogrel Bisulfate 75 MG eCW1 ([facility]) Aspirin 81 MG Delayed Release Oral Tablet Aspirin 81 MG 05/07/2020 12:00:00 AM EST 1.0 {tablet} active Aspirin 81 MG eCW1 ([facility]) clopidogrel 75 MG Oral Tablet Clopidogrel Bisulfate 75 MG Clopidogrel Bisulfate 75 MG 05/07/2020 12:00:00 AM EST 1.0 {tablet} activ e Clopidogrel Bisulfate 75 MG eCW1 ([facility]) clopidogrel 75 MG Oral Tablet Clopidogrel Bisulfate 75 MG Clopidogrel Bisulfate 75 MG 05/07/2020 12:00:00 AM EST 1.0 {tablet} activ e Clopidogrel Bisulfate 75 MG eCW1 ([facility]) clopidogrel 75 MG Oral Tablet Clopidogrel Bisulfate 75 MG Clopidogrel Bisulfate 75 MG 05/07/2020 12:00:00 AM EST 1.0 {tablet} activ e Clopidogrel Bisulfate 75 MG eCW1 ([facility]) atorvastatin 40 MG Oral Tablet Atorvastatin Calcium 40 MG Atorvastatin Calcium 40 MG 05/07/2020 12:00:00 AM EST 1.0 {tablet} active eCW1 ([facility]) clopidogrel 75 MG Oral Tablet Clopidogrel Bisulfate 75 MG Clopidogrel Bisulfate 75 MG 05/07/2020 12:00:00 AM EST 1.0 {tablet} activ e Clopidogrel Bisulfate 75 MG eCW1 ([facility]) atorvastatin 40 MG Oral Tablet Atorvastatin Calcium 40 MG Atorvastatin Calcium 40 MG 05/07/2020 12:00:00 AM EST 1.0 {tablet} activ e Atorvastatin Calcium 40 MG eCW1 ([facility]) atorvastatin 40 MG Oral Tablet Atorvastatin Calcium 40 MG Atorvastatin Calcium 40 MG 05/07/2020 12:00:00 AM EST 1.0 {tablet} activ e Atorvastatin Calcium 40 MG eCW1 ([facility]) Aspirin 81 MG Delayed Release Oral Tablet Aspirin 81 MG 05/07/2020 12:00:00 AM EST 1.0 {tablet} active Aspirin 81 MG eCW1 ([facility]) clopidogrel 75 MG Oral Tablet Clopidogrel Bisulfate 75 MG Clopidogrel Bisulfate 75 MG 05/07/2020 12:00:00 AM EST 1.0 {tablet} active eCW1 ([facility]) atorvastatin 40 MG Oral Tablet Atorvastatin Calcium 40 MG Atorvastatin Calcium 40 MG 05/07/2020 12:00:00 AM EST 1.0 {tablet} activ e Atorvastatin Calcium 40 MG eCW1 ([facility]) clopidogrel 75 MG Oral Tablet Clopidogrel Bisulfate 75 MG Clopidogrel Bisulfate 75 MG 05/07/2020 12:00:00 AM EST 1.0 {tablet} activ e Clopidogrel Bisulfate 75 MG eCW1 ([facility]) Aspirin 81 MG Delayed Release Oral Tablet Aspirin 81 MG 05/07/2020 12:00:00 AM EST 1.0 {tablet} active Aspirin 81 MG eCW1 ([facility]) clopidogrel 75 MG Oral Tablet Clopidogrel Bisulfate 75 MG Clopidogrel Bisulfate 75 MG 05/07/2020 12:00:00 AM EST 1.0 {tablet} activ e Clopidogrel Bisulfate 75 MG eCW1 ([facility]) clopidogrel 75 MG Oral Tablet Clopidogrel Bisulfate 75 MG Clopidogrel Bisulfate 75 MG 05/07/2020 12:00:00 AM EST 1.0 {tablet} activ e Clopidogrel Bisulfate 75 MG eCW1 ([facility]) atorvastatin 40 MG Oral Tablet Atorvastatin Calcium 40 MG Atorvastatin Calcium 40 MG 05/07/2020 12:00:00 AM EST 1.0 {tablet} activ e Atorvastatin Calcium 40 MG eCW1 ([facility]) Aspirin 81 MG Delayed Release Oral Tablet Aspirin 81 MG 05/07/2020 12:00:00 AM EST 1.0 {tablet} active Aspirin 81 MG eCW1 ([facility]) atorvastatin 40 MG Oral Tablet Atorvastatin Calcium 40 MG Atorvastatin Calcium 40 MG 05/07/2020 12:00:00 AM EST 1.0 {tablet} activ e Atorvastatin Calcium 40 MG eCW1 ([facility]) Aspirin 81 MG Delayed Release Oral Tablet Aspirin 81 MG 05/07/2020 12:00:00 AM EST 1.0 {tablet} active Aspirin 81 MG eCW1 ([facility]) atorvastatin 40 MG Oral Tablet Atorvastatin Calcium 40 MG Atorvastatin Calcium 40 MG 05/07/2020 12:00:00 AM EST 1.0 {tablet} activ e Atorvastatin Calcium 40 MG eCW1 ([facility]) clopidogrel 75 MG Oral Tablet Clopidogrel Bisulfate 75 MG Clopidogrel Bisulfate 75 MG 05/07/2020 12:00:00 AM EST 1.0 {tablet} activ e Clopidogrel Bisulfate 75 MG eCW1 ([facility]) Aspirin 81 MG Delayed Release Oral Tablet Aspirin 81 MG 05/07/2020 12:00:00 AM EST 1.0 {tablet} active Aspirin 81 MG eCW1 ([facility]) Isosorbide Mononitrate 10 MG Oral Tablet Isosorbide Mononitr ate 04/23/2020 12:00:00 AM EDT ORAL active M EDENT ([facility]) Colchicine 0.6 MG Oral Capsule Colchicine 04/23/2020 12:00:00 AM EDT ORAL active MEDENT ([facility]) atorvastatin 40 MG Oral Tablet Atorvastatin Calcium 04/22/2020 1 2:00:00 AM EDT ORAL active MEDENT ( [facility]) Metoprolol Tartrate 50 MG Oral Tablet Metoprolol Tartrate 12:00:00 AM EDT ORAL completed MEDENT ([facility]) Aspirin 81 MG Delayed Release Oral Tablet Aspirin 04/22/2020 1 2:00:00 AM EDT ORAL active MEDENT ([facility]) clopidogrel 75 MG Oral Tablet Clopidogrel Bisulfate 04/22/2020 1 2:00:00 AM EDT ORAL active MEDENT ( [facility]) Omeprazole 20 MG Delayed Release Oral Capsule Omeprazole 20 MG 04/17/2020 12:00:00 AM EDT active Omeprazo le 20 MG eCW1 ([facility]) Omeprazole 20 MG Delayed Release Oral Capsule Omeprazole 20 MG 04/17/2020 12:00:00 AM EDT active Omeprazo le 20 MG eCW1 ([facility]) Omeprazole 20 MG Delayed Release Oral Capsule Omeprazole 20 MG 04/17/2020 12:00:00 AM EDT active Omeprazo le 20 MG eCW1 ([facility]) Omeprazole 20 MG Delayed Release Oral Capsule Omeprazole 20 MG 04/17/2020 12:00:00 AM EDT active Omeprazo le 20 MG eCW1 ([facility]) Omeprazole 20 MG Delayed Release Oral Capsule Omeprazole 20 MG 04/17/2020 12:00:00 AM EDT active Omeprazo le 20 MG eCW1 ([facility]) Omeprazole 20 MG Delayed Release Oral Capsule Omeprazole 20 MG 04/17/2020 12:00:00 AM EDT active Omeprazo le 20 MG eCW1 ([facility]) Omeprazole 20 MG Delayed Release Oral Capsule Omeprazole 20 MG 04/17/2020 12:00:00 AM EDT active Omeprazo le 20 MG eCW1 ([facility]) Omeprazole 20 MG Delayed Release Oral Capsule Omeprazole 20 MG 04/17/2020 12:00:00 AM EDT active Omeprazo le 20 MG eCW1 ([facility]) Omeprazole 20 MG Delayed Release Oral Capsule Omeprazole 20 MG 04/17/2020 12:00:00 AM EDT active Omeprazo le 20 MG eCW1 ([facility]) Omeprazole 20 MG Delayed Release Oral Capsule Omeprazole 20 MG 04/17/2020 12:00:00 AM EDT active Omeprazo le 20 MG eCW1 ([facility]) Omeprazole 20 MG Delayed Release Oral Capsule Omeprazole 20 MG 04/17/2020 12:00:00 AM EDT active Omeprazo le 20 MG eCW1 ([facility]) Omeprazole 20 MG Delayed Release Oral Capsule Omeprazole 20 MG 04/17/2020 12:00:00 AM EDT active Omeprazo le 20 MG eCW1 ([facility]) Omeprazole 20 MG Delayed Release Oral Capsule Omeprazole 20 MG 04/17/2020 12:00:00 AM EDT active Omeprazo le 20 MG eCW1 ([facility]) Omeprazole 20 MG Delayed Release Oral Capsule Omeprazole 20 MG 04/17/2020 12:00:00 AM EDT active Omeprazo le 20 MG eCW1 ([facility]) Omeprazole 20 MG Delayed Release Oral Capsule Omeprazole 20 MG 04/17/2020 12:00:00 AM EDT active Omeprazo le 20 MG eCW1 ([facility]) Omeprazole 20 MG Delayed Release Oral Capsule Omeprazole 20 MG 04/17/2020 12:00:00 AM EDT active Omeprazo le 20 MG eCW1 ([facility]) Omeprazole 20 MG Delayed Release Oral Capsule Omeprazole 20 MG 04/17/2020 12:00:00 AM EDT active Omeprazo le 20 MG eCW1 ([facility]) Omeprazole 20 MG Delayed Release Oral Capsule Omeprazole 20 MG 04/17/2020 12:00:00 AM EDT active Omeprazo le 20 MG eCW1 ([facility]) Omeprazole 20 MG Delayed Release Oral Capsule Omeprazole 20 MG 04/17/2020 12:00:00 AM EDT active Omeprazo le 20 MG eCW1 ([facility]) Omeprazole 20 MG Delayed Release Oral Capsule Omeprazole 20 MG 04/17/2020 12:00:00 AM EDT active Omeprazo le 20 MG eCW1 ([facility]) Omeprazole 20 MG Delayed Release Oral Capsule Omeprazole 20 MG 04/17/2020 12:00:00 AM EDT active Omeprazo le 20 MG eCW1 ([facility]) Omeprazole 20 MG Delayed Release Oral Capsule Omeprazole 20 MG 04/17/2020 12:00:00 AM EDT active Omeprazo le 20 MG eCW1 ([facility]) Omeprazole 20 MG Delayed Release Oral Capsule Omeprazole 20 MG 04/17/2020 12:00:00 AM EDT active Omeprazo le 20 MG eCW1 ([facility]) Omeprazole 20 MG Delayed Release Oral Capsule Omeprazole 20 MG 04/17/2020 12:00:00 AM EDT active Omeprazo le 20 MG eCW1 ([facility]) Omeprazole 20 MG Delayed Release Oral Capsule Omeprazole 20 MG 04/17/2020 12:00:00 AM EDT active Omeprazo le 20 MG eCW1 ([facility]) Omeprazole 20 MG Delayed Release Oral Capsule Omeprazole 20 MG 04/17/2020 12:00:00 AM EDT active Omeprazo le 20 MG eCW1 ([facility]) Omeprazole 20 MG Delayed Release Oral Capsule Omeprazole 20 MG 04/17/2020 12:00:00 AM EDT active Omeprazo le 20 MG eCW1 ([facility]) Omeprazole 20 MG Delayed Release Oral Capsule Omeprazole 20 MG 04/17/2020 12:00:00 AM EDT active Omeprazo le 20 MG eCW1 ([facility]) Omeprazole 20 MG Delayed Release Oral Capsule Omeprazole 20 MG 04/17/2020 12:00:00 AM EDT active Omeprazo le 20 MG eCW1 ([facility]) Omeprazole 20 MG Delayed Release Oral Capsule Omeprazole 20 MG 04/17/2020 12:00:00 AM EDT active Omeprazo le 20 MG eCW1 ([facility]) Omeprazole 20 MG Delayed Release Oral Capsule Omeprazole 20 MG 04/17/2020 12:00:00 AM EDT active Omeprazo le 20 MG eCW1 ([facility]) Omeprazole 20 MG Delayed Release Oral Capsule Omeprazole 20 MG 04/17/2020 12:00:00 AM EDT active Omeprazo le 20 MG eCW1 ([facility]) Omeprazole 20 MG Delayed Release Oral Capsule Omeprazole 20 MG 04/17/2020 12:00:00 AM EDT active e CW1 ([facility]) Omeprazole 20 MG Delayed Release Oral Capsule Omeprazole 20 MG 04/17/2020 12:00:00 AM EDT active Omeprazo le 20 MG eCW1 ([facility]) Omeprazole 20 MG Delayed Release Oral Capsule Omeprazole 20 MG 04/17/2020 12:00:00 AM EDT active Omeprazo le 20 MG eCW1 ([facility]) Omeprazole 20 MG Delayed Release Oral Capsule Omeprazole 20 MG 04/17/2020 12:00:00 AM EDT active Omeprazo le 20 MG eCW1 ([facility]) Omeprazole 20 MG Delayed Release Oral Capsule Omeprazole 20 MG 04/17/2020 12:00:00 AM EDT active Omeprazo le 20 MG eCW1 ([facility]) Omeprazole 20 MG Delayed Release Oral Capsule Omeprazole 20 MG 04/17/2020 12:00:00 AM EDT active Omeprazo le 20 MG eCW1 ([facility]) Omeprazole 20 MG Delayed Release Oral Capsule Omeprazole 20 MG 04/17/2020 12:00:00 AM EDT active Omeprazo le 20 MG eCW1 ([facility]) Omeprazole 20 MG Delayed Release Oral Capsule Omeprazole 20 MG 04/17/2020 12:00:00 AM EDT active Omeprazo le 20 MG eCW1 ([facility]) clopidogrel 75 MG Oral Tablet clopidogrel (PLAVIX) tab let 75 mg clopidogrel (PLAVIX) tablet 75 mg 04/10/2020 09:00:00 AM EDT 75 mg Oral active 75 mg, Oral, Daily Standard, First dose on Wed04/10/20 at 0900, For 30 days [facility] Medication administered onsite Aspirin 81 MG Chewable Tablet Aspirin 81 MG Oral Table t Chewable Aspirin 81 MG Oral Tablet Chewable 04/10/2020 12:00:00 AM EDT 81 mg Oral active Chew 1 tablet by Mouth daily [facility] clopidogrel 75 MG Oral Tablet Clopidogrel Bisulfate 75 MG Oral Tablet (PLAVIX) Clopidogrel Bisulfate 75 MG Oral Tablet (PLAVIX) 04/10/2020 12:00:00 AM EDT 75 mg Oral active Take 1 tablet by mouth d [facility] quetiapine 25 MG Oral Tablet QUEtiapine (SEROquel) tab let 25 mg QUEtiapine (SEROquel) tablet 25 mg 04/09/2020 04:06:23 PM EDT 25 mg Oral active 25 mg, Oral, Nightly PRN, sleep or agitation, Starting Wed04/09/20 at 1606, For 30 days [facility] Medication administered onsite atorvastatin 40 MG Oral Tablet Atorvastatin Calcium 40 MG Oral Tablet (LIPITOR) Atorvastatin Calcium 40 MG Oral Tablet (LIPITOR) 04/09/2020 12:00:00 AM EDT 40 mg Oral active Take 1 tablet by mouth e very evening [facility] Metoprolol Tartrate 50 MG Oral Tablet Me toprolol Tartrate 50 MG Oral Tablet (LOPRESSOR) Metoprolol Tartrate 50 MG Oral Tablet (LOPRESSOR) 03/28 12:00:00 AM EDT 50 mg Oral active Take 1 tablet by mouth Two Times Daily [facility] quetiapine 25 MG Oral Tablet QUEtiapine (SEROquel) tab let 25 mg QUEtiapine (SEROquel) tablet 25 mg 04/08/2020 11:00:00 PM EDT 25 mg Oral completed 25 mg, Oral, Once, Wed04/08/20 at 2300, For 1 dose [facility] Medication administered onsite Melatonin 5 MG Oral Tablet melatonin tablet 5 mg melatonin t ablet 5 mg 04/08/2020 10:00:00 PM EDT 5 mg Oral active 5 mg, Oral, Nightly, First dose on Wed04/08/20 at 2200, For 30 days [facility] Medication administered onsite Metoprolol Tartrate 50 MG Oral Tablet metoprolol (LOPR ESSOR) tablet 50 mg metoprolol (LOPRESSOR) tablet 50 mg 04/08/2020 09:00:00 PM EDT 50 mg Oral active 50 mg, Oral, 2 Times Daily, First dose (after last modification) on Wed04/08/20 at 2100, For 57 doses [facility] Medication administered onsite Finasteride 5 MG Oral Tablet finasteride (PROSCAR) tab let 5 mg finasteride (PROSCAR) tablet 5 mg 04/08/2020 09:00:00 AM EDT 5 mg Oral active Benign Prostatic Hypertrophy 5 mg, Oral, Daily Standard, First dose on Wed04/08/20 at 0900, For 30 days [facility] Benign Prostatic Hypertrophy Medication administered onsite Tamsulosin hydrochloride 0.4 MG Oral Capsule tamsulosi n (FLOMAX) capsule 0.4 mg tamsulosin (FLOMAX) capsule 0.4 mg 04/08/2020 09:00:00 AM EDT 0.4 mg Oral active Benign Prostatic Hypertrophy 0.4 mg, Ora l, Daily Standard, First dose on Wed04/08/20 at 0900, For 30 days
Swallow whole. Do not crush, chew or open.
[facility] Benign Prostatic Hypertrophy Medication administered onsite Losartan Potassium 50 MG Oral Tablet losartan (COZAAR) tablet 100 mg losartan (COZAAR) tablet 100 mg 04/08/2020 09:00:00 AM EDT 100 mg Oral active Hypertension 100 mg, Oral, Daily Standar d, First dose on 04/08/20 at 0900, For 30 days
Check vital signs before administering
[facility] Hypertension Medication administered onsite 1 ML Lorazepam 2 MG/ML Injection LORazepam (ATIVAN) in jection 0.5 mg LORazepam (ATIVAN) injection 0.5 mg 04/08/2020 02:00:00 AM EDT 0.5 mg Intrave nous completed 0.5 mg, Intravenous, Once, Wed 1 at 0200, For 1 dose [facility] Medication administered onsite atorvastatin 40 MG Oral Tablet atorvastatin (LIPITOR) tablet 40 mg atorvastatin (LIPITOR) tablet 40 mg 04/07/2020 09:00:00 PM EDT 40 mg Oral active 40 mg, Oral, Every evening, First dose on 04/07/20 at 2100, For 30 days [facility] Medication administered onsite gabapentin 300 MG Oral Capsule gabapentin (NEURONTIN) capsule 300 mg gabapentin (NEURONTIN) capsule 300 mg 04/07/2020 09:00:00 PM EDT 300 mg Oral active Restless Leg Syndrome 300 mg, Oral, 2 Times Daily, First dose on 04/07/20 at 2100, For 30 days [facility] Restless Leg Syndrome Medication administered onsite Metoprolol Tartrate 25 MG Oral Tablet me toprolol tartrate (LOPRESSOR) tablet 25 mg metoprolol tartrate (LOPRESSOR) tablet 25 mg 04/07/2020 12:45:00 PM EDT 25 mg Oral aborted 25 mg, Ora l, 2 Times Daily, First dose on 04/07/20 at 1245, For 30 days [facility] Medication administered onsite Nitroglycerin 0.4 MG Sublingual Tablet n itroglycerin (NITROSTAT) SL tablet 0.4 mg nitroglycerin (NITROSTAT) SL tablet 0.4 mg 04/07/2020 12:09:17 P M EDT 0.4 mg Sublingual active 0.4 mg, S ublingual, Every 5 min PRN, Chest pain, Starting 04/07/20 at 1209, For 30 days [facility] Medication administered onsite Aspirin 81 MG Chewable Tablet aspirin chewable tablet 81 mg aspirin chewable tablet 81 mg 04/07/2020 12:00:00 PM EDT 81 mg Oral activ e 81 mg, Oral, Daily Standard, First dose (after last modification) on 04/07/20 at 1200, For 30 days
Chew tablet before swallowing.
[facility] Medication administered onsite Acetaminophen 325 MG Oral Tablet acetaminophen (TYLENO L) tablet 650 mg acetaminophen (TYLENOL) tablet 650 mg 04/07/2020 11:52:26 AM EDT 65 0 mg Oral active 650 mg, Oral, E very 4 hours PRN, Mild Pain (Pain Scale Score 1- 3), Starting 04/07/20 at 1152, For 30 days
Maximum daily dose of acetaminophen is 3,000 mg from all sources in 24 hours.
[facility] Medication administered onsite Insurance Providers Payer name Policy type / Coverage type Policy ID Covered alliance party ID Covered alliance party's relationship to clements Policy Clements Plan Information MEDICARE A [id number] Self [id number] MEDICARE [id number] SP [id number] [place] [id number] Self 0 [id number] [place] Medicare Primary [id number] Self [id number] [place] Primary [id number] Self 0 [id number] BS [place] [facility] Part B [id number] Self V [id number] [place] Medicare Primary [id number] Self [id number] [facility] [place] [facility] [id number] Self V [id number] [place] Primary [id number] Self 0 [id number] BS [place] Medigap Part B [id number] Self V [id number] [place] Medicare Primary [id number] Self [id number] BS [place] Medigap Part B [id number] Self V [id number] BS [place] Medigap Part B [id number] Self V [id number] BS [place] Medigap Part B [id number] Self V [id number] [place] PPO 302/307 [id number] SP [id number] AARP U [id number] Self [id number] [facility] Medigap Part B [id number] Self [id number] [facility] [employer] Part B [id number] Self 3 [id number] [facility] [employer] Part B [id number] Self 3 [id number] [facility] [employer] Part B [id number] Self [id number] [facility] [employer] Part B [id number] Self [id number] [facility] [employer] Part B [id number] Self 3 [id number] [facility] Medigap Part B [id number] Self [id number] [employer] Medigap Part B [id number] Self [id number] [employer] OPTIONS [id number] [facility] Ppo Commercial [id number] 0 Self [id number] Medicare - [place] Medicare Primary [id number] Self [id number] [employer] Medigap Part B [id number] Self [id number] [place] Medicare Primary [id number] Self [id number] ANS-Medicare Part B [id number] ANSI-Commercial [id number] [facility] Part B [id number] Self Y [id number] [facility] Part B [id number] Self [id number] Medicare (Part B) Medicare Primary [id number] Self 0 [id number] BCBS Ppo Commercial [id number]. 0 Self [id number] Medicare - [facility] Medicare Primary [id number] [id number] Self [id number] AARP O [id number] S [id number] MEDICARE C [id number] S [id number] A [facility] Part B [id number] Self [id number] Medicare (Part B) Medicare Primary [id number] Self 0 [id number] MEDICARE [id number] SP [id number] A MEDICARE [id number] SP [id number] A [employer] OPTIONS -O/P [id number] 18 [id number] MEDICARE -O/P [id number] MEDICARE -I/P [id number] 18 [id number] MEDICARE [id number] Retired [id number] N31 [id number] A [employer] OPTIONS [id number] Retired [id number] MEDICARE [id number] SP [id number] N31 [employer] OPTIONS [id number] SP [id number] [employer]IONS 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 [id number] Self [id number] Medicare (Part B) Medicare Primary [id number] Self [id number] Medicare (Part B) Medicare Primary [id number] Self [id number] MEDICARE [id number] S [id number] A [facility] Medigap Part B [id number] Self [id number] Medicare (Part B) Medicare Primary [id number] Self [id number] Medicare (Part B) Medicare Primary [id number] Self [id number] [facility] Part B [id number] Self [id number] [place] Primary [id number] Self [id number] MEDICARE [id number] A [facility] Part B [id number] Self [id number] [place] Medicare Primary [id number] Self [id number] [facility] Part B [id number] Self [id number] Medicare [place] Medicare Primary [id number] Self [id number] ANSI-Medicare Part B [id number] ANSI-Commercial [id number] Problems, Conditions, and Diagnoses Code Display Name Description Problem Type Effective Dates Data Source(s) G31.84 Mild cognitive impairment, so stated MIL D COGNITIVE IMPAIRMENT, SO STATED Diagnosis 04/18/2021 10:16:00 AM EDT Rachel jarvis Z95.818 Presence of other cardiac implants and g rafts PRESENCE OF OTHER CARDIAC IMPLANTS AND GRAFTS Diagnosis 10/22/2020 11:00:[address] [facility] spital I25.2 Old myocardial infarction OLD MYOCARDIAL INFARCTION Di agnosis 10/22/2020 11:00:00 AM [facility] I25.10 Atherosclerotic heart diseas e of [place] coronary artery without angina pectoris ATHSCL HEART DISEASE OF [place] CORONARY ARTERY W/O ANG PCTRS Diagnosis 10/22/2020 11:00:00 AM [facility] Z96.651 Presence of right artificial knee joint PRESENCE OF RIGHT ARTIFICIAL KNEE JOINT Diagnosis 10/22/2020 11:00:[address] 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 spital I21.4 Non-ST elevation (NSTEMI) myocardial inf arction Non-ST elevation (NSTEMI) myocardial infarction Diagnosis 04/07/2020 12:19:33 PM EDT [facility] R39.11 Hesitancy of micturition Hesitancy of micturition Diag nosis 04/07/2020 11:52:56 AM [facility] N40.1 Benign prostatic hyperplasia with lower urinary tract symptoms Benign prostatic hyperplasia with lower urinary tract symptoms Diagnosis 04/07/2020 11:52:56 AM [facility] NSTEMI NSTEMI Diagnosis 04/07/2020 11:03:00 AM ED [facility] C44.90 [id number] Problem 04/29/2021 12:00:00 AM ED T eCW1 ([facility]) 1943828 Hallucinations Hallucinations Problem 04/17/2021 12:00: 00 AM EDT [facility] ([facility], ) [id number] Memory impairment Memory impairment Problem 04/17 12:00:00 AM [facility] C80.1 [id number] Carcinoma Problem 04/09/2021 12:00:00 AM ED T eCW1 ([facility]) C44.99 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 Skin carcinoma Problem 04/03/2021 12:00:00 A M EDT eCW1 ([facility]) C80.1 434321713 Carcinoma, undifferentiated Problem 03/28/20 12:00:00 AM EDT eCW1 ([facility]) R41.3 [id number] Memory loss Problem 02/19/2021 12:00:00 AM E DT eCW1 ([facility]) I73.9 [id number] Claudication Problem 10/24/2020 12:00:00 AM EDT eCW1 ([facility]) I73.9 [id number] Peripheral vascular disease Problem 10/23/19 12:00:00 AM EDT eCW1 ([facility]) R31.0 [id number] Gross hematuria Problem 09/04/2020 12:00:00 AM EST eCW1 ([facility]) M47.27 [id number] Lumbosacral spondylosis with radiculopath y Problem 08/27/2020 12:00:00 AM EST eCW1 ([facility]) I21.4 [id number] Non-ST elevation stefani cardial infarction (NSTEMI) in recovery phase Problem 05/07/2020 12:00:00 AM EST eCW1 ([facility]) K21.9 Gastroesophageal reflux disease without esophagitis Gastroesophageal reflux disease without esophagitis Problem 05/07/2020 12:00:00 AM ES T eCW1 ([facility]) E66.3 Overweight Overweight Problem 04/23/2020 12:00:00 AM ED T [facility] ([facility]) 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 Problem 04/23/2020 12:00:00 AM EDT [facility] ([facility]) Z95.5 Patient post percutaneous transluminal c oronary angioplasty Patient post percutaneous transluminal coronary angioplasty Problem 020 12:00:00 AM EDT [facility] ([facility]) Surgeries/Procedures Procedure Description Date Indications Data Source(s) NURSE ONLY VISIT FOR DRESSING CHANGE 04/22/2021 12:00: 00 AM EDT eCW1 ([facility]) MRI BRAIN BRAIN STEM W/O CONTRAST MATERIAL 04/19/2021 12:00:00 AM EDT [facility] ([facility] ) MRI BRAIN BRAIN STEM W/O CONTRAST MATERIAL 04/19/2021 12:00:00 AM EDT [facility] ([facility], ) Assessment/Care Planning For Patient W/Cognitive Impairment 04/17/2021 12:00:00 AM EDT [facility] ([facility] ) Med: Derm Lidocaine with Epinephrine Inj ection 1% with 2 ml sodium bicarbonate Intradermally to marked areas 04/03/2021 12:00:00 AM EDT eC ([facility]) Med: Derm 1% Lidocaine with Epinephrine Injection Intr adermally to marked areas 03/06/2021 12:00:00 AM EDT [facility] ([facility]) OFFICE OUTPATIENT VISIT 15 MINUTES 01/22/2021 12:00:00 AM EDT [facility] ([facility] ) Chronic Care MGMT 20 Mins Clinical Staff Time Per Calendar [facility] 11/11/2020 12:00:00 AM EDT [facility] ([facility] [place]) DUP-SCAN XTR VEINS UNILATERAL/LIMITED STUDY EXTREMITY STUDY 10/22/2020 12:00:00 AM [facility] DUP-SCAN LXTR ART/ARTL BPGS UNI/LMTD STUDY LOWER EXTREMITY S TUDY 10/22/2020 12:00:00 AM [facility] RADIOLOGIC EXAMINATION KNEE 3 VIEWS X-RAY EXAM OF KNEE 3 12:00:00 AM [facility] APPLICATION LONG LEG SPLINT THIGH ANKLE/TOES APPLICATION BERNA G LEG SPLINT 10/22/2020 12:00:00 AM [facility] EMERGENCY DEPARTMENT VISIT HIGH/URGENT SEVERITY EMERGENCY DE PT VISIT 10/22/2020 12:00:00 AM [facility] Chronic Care MGMT 20 Mins Clinical Staff Time Per Calendar M [facility] 08/26/2020 12:00:00 AM EST [facility] ([facility] [place]) uro PVR (Post Voiding Residual) Bladder Scan 12:00:00 AM EST eC ([facility]) ECG ROUTINE ECG W/LEAST 12 LDS W/I&R 04/23/2020 12:00: 00 AM EDT [facility] ([facility]) Arterial Pressure Waveform Analysis For Assessment Of Centra l Art 04/23/2020 12:00:00 AM EDT [facility] ([facility]) EKG 12-LEAD - CMAXX REPORT <td>EKG 12-LEAD - CMAXX REPORT</td><td></td><td>04/10/2020 11:14 AM EDT</td><td></td><td></td> 04/10/2020 11:14:53 AM [facility] EKG 12-LEAD - CMAXX REPORT <td>EKG 12-LEAD - CMAXX REPORT</td><td></td><td>04/10/2020 11:14 AM EDT</td><td></td><td></td> 04/10/2020 11:14:53 AM [facility] EKG 12-LEAD <td>EKG 12-LEAD</td><td>Rout ine</td><td>04/10/2020 11:14 AM EDT</td><td></td><td> </td> 04/10/2020 11:14:53 AM [facility] BLOOD COUNT COMPLETE AUTOMATED <td>CBC</td><td>Routine </td><td>04/10/2020 2:53 AM EDT</td><td></td><td> </td> 04/10/2020 02:53:00 AM [facility] CREATINE KINASE TOTAL <td>CK</td><td>Routine</td>< td>04/10/2020 2:53 AM EDT</td><td></td><td> </td> 04/10/2020 02:53:00 AM [facility] BASIC METABOLIC PANEL CALCIUM TOTAL <td>BASIC METABOLI C PANEL</td><td>Routine</td><td>04/10/2020 2:53 AM EDT</td><td></td><td> </td> 04/10/2020 02:53:00 AM [facility] CAR GREASER PROCEDURE <td>CAR GREASER PROCEDURE</td>< td>Routine</td><td>04/09/2020 1:31 PM EDT</td><td></td><td> </td> 04/09/2020 01:31:31 PM [facility] COAGULATION TIME ACTIVATED <td>POCT ISTAT ACT</td><td> Routine</td><td>04/09/2020 11:34 AM EDT</td><td></td><td> </td> 04/09/2020 11:34:00 AM [facility] PRQ TRLUML CORONARY STENT W/ANGIO ONE ART/BRNCH [[id number] ] <td>PRQ TRLUML CORONARY STENT W/ANGIO ONE ART/BRNCH [[id number]]</td><td></td><td>04/09/2020 10:19 AM EDT</td><td> NSTEMI</td><td></td> 04/09/2020 10:19:00 AM EDT - 04/09/2020 11:50:00 AM [facility] LEFT HEART CATHETERIZATION;PERCUTANEOUS <td>LEFT HEART CATHETERIZATION;PERCUTANEOUS</td><td></td><td>04/09/2020 10:19 AM EDT</td><td> NSTEMI</td><td></td> 04/09/2020 10:19:00 AM EDT - 04/09/2020 11:50:00 AM [facility] CARDIAC CATH PROCEDURE LOG <td>CARDIAC CATH PROCEDURE LOG</td><td></td><td>04/09/2020 9:46 AM EDT</td><td></td><td></td> 04/09/2020 09:46:15 AM [facility] HEPARIN ASSAY <td>ANTI-XA UNFRACTIONATED H EPARIN LEVEL</td><td>Routine</td><td>04/09/2020 8:14 AM EDT</td><td></td><td> </td> 04/09/2020 08:14:00 AM [facility] HEPARIN ASSAY <td>ANTI-XA UNFRACTIONATED H EPARIN LEVEL</td><td>Routine</td><td>04/09/2020 1:29 AM EDT</td><td></td><td> </td> 04/09/2020 01:29:00 AM [facility] PROTHROMBIN TIME <td>PROTIME INR</td><td>Rout ine</td><td>04/09/2020 1:29 AM EDT</td><td></td><td> </td> 04/09/2020 01:29:00 AM [facility] BASIC METABOLIC PANEL CALCIUM TOTAL <td>BASIC METABOLI C PANEL</td><td>Routine</td><td>04/09/2020 1:29 AM EDT</td><td></td><td> </td> 04/09/2020 01:29:00 AM [facility] CAR GREASER PROCEDURE <td>CAR GREASER PROCEDURE</td>< td>Routine</td><td>04/09/2020 12:15 AM EDT</td><td></td><td></td> 04/09/2020 12:15:10 AM [facility] HEPARIN ASSAY <td>ANTI-XA UNFRACTIONATED H EPARIN LEVEL</td><td>Routine</td><td>04/08/2020 2:33 PM EDT</td><td></td><td> </td> 04/08/2020 02:33:00 PM [facility] CAR GREASER PROCEDURE <td>CAR GREASER PROCEDURE</td>< td>Routine</td><td>04/08/2020 8:31 AM EDT</td><td></td><td></td> 04/08/2020 08:31:18 AM [facility] HEPARIN ASSAY <td>ANTI-XA UNFRACTIONATED H EPARIN LEVEL</td><td>Routine</td><td>04/08/2020 6:18 AM EDT</td><td></td><td> </td> 04/08/2020 06:18:00 AM [facility] PROTHROMBIN TIME <td>PROTIME INR</td><td>Rout ine</td><td>04/08/2020 6:18 AM EDT</td><td></td><td> </td> 04/08/2020 06:18:00 AM [facility] BLOOD COUNT COMPLETE AUTOMATED <td>CBC</td><td>Routine </td><td>04/08/2020 6:18 AM EDT</td><td></td><td> </td> 04/08/2020 06:18:00 AM [facility] TROPONIN QUANTITATIVE <td>TROPONIN T</td><td>Routi ne</td><td>04/08/2020 6:18 AM EDT</td><td></td><td> </td> 04/08/2020 06:18:00 AM [facility] MAGNESIUM <td>MAGNESIUM LEVEL</td><td> Routine</td><td>04/08/2020 6:18 AM EDT</td><td></td><td> </td> 04/08/2020 06:18:00 AM [facility] BASIC METABOLIC PANEL CALCIUM TOTAL <td>BASIC METABOLI C PANEL</td><td>Routine</td><td>04/08/2020 6:18 AM EDT</td><td></td><td> </td> 04/08/2020 06:18:00 AM [facility] HEPARIN ASSAY <td>ANTI-XA UNFRACTIONATED H EPARIN LEVEL</td><td>Routine</td><td>04/07/2020 6:46 PM EDT</td><td></td><td> </td> 04/07/2020 06:46:00 PM [facility] TROPONIN QUANTITATIVE <td>TROPONIN T</td><td>Timed </td><td>04/07/2020 6:46 PM EDT</td><td></td><td> </td> 04/07/2020 06:46:00 PM [facility] ECHO TTHRC R-T 2D W/WOM-MODE COMPL SPEC&COLR DOP <td>E CHOCARDIOGRAM 2D COMPLETE</td><td>Routine</td><td>04/07/2020 12:53 PM EDT</td><td></td><td> </td> 04/07/2020 12:53:14 PM [facility] HEPARIN ASSAY <td>ANTI-XA UNFRACTIONATED H EPARIN LEVEL</td><td>Routine</td><td>04/07/2020 12:15 PM EDT</td><td></td><td> </td> 04/07/2020 12:15:00 PM [facility] PROTHROMBIN TIME <td>PROTIME INR</td><td>Rout ine</td><td>04/07/2020 12:15 PM EDT</td><td></td><td> </td> 04/07/2020 12:15:00 PM [facility] BLOOD COUNT COMPLETE AUTOMATED <td>CBC</td><td>Routine </td><td>04/07/2020 12:15 PM EDT</td><td></td><td> </td> 04/07/2020 12:15:00 PM [facility] TROPONIN QUANTITATIVE <td>TROPONIN T</td><td>Timed </td><td>04/07/2020 12:15 PM EDT</td><td></td><td> </td> 04/07/2020 12:15:00 PM [facility] MAGNESIUM <td>MAGNESIUM LEVEL</td><td> Routine</td><td>04/07/2020 12:15 PM EDT</td><td></td><td> </td> 04/07/2020 12:15:00 PM [facility] LIPID PANEL <td>LIPID PANEL</td><td>Rout ine</td><td>04/07/2020 12:15 PM EDT</td><td></td><td> </td> 04/07/2020 12:15:00 PM [facility] BASIC METABOLIC PANEL CALCIUM TOTAL <td>BASIC METABOLI C PANEL</td><td>Routine</td><td>04/07/2020 12:15 PM EDT</td><td></td><td> </td> 04/07/2020 12:15:00 PM [facility] EKG 12-LEAD - CMAXX REPORT <td>EKG 12-LEAD - CMAXX REPORT</td><td></td><td>04/07/2020 12:11 PM EDT</td><td></td><td></td> 04/07/2020 12:11:13 PM [facility] EKG 12-LEAD - CMAXX REPORT <td>EKG 12-LEAD - CMAXX REPORT</td><td></td><td>04/07/2020 12:11 PM EDT</td><td></td><td></td> 04/07/2020 12:11:13 PM [facility] EKG 12-LEAD <td>EKG 12-LEAD</td><td>Rout ine</td><td>04/07/2020 12:11 PM EDT</td><td></td><td> </td> 04/07/2020 12:11:13 PM [facility] Non-covered item or service 04/06/2020 12:00:00 AM [facility] Results ID Date Data Source [id number] 04/30/2021 05:55:00 PM [facility] Name Value Range Interpretation Code Description Data Rosanna rce(s) Supporting Document(s) Troponin I 0.000-0.056 Normal (applies to non-numeric resu lts) [facility] ID Date Data Source [id number] 04/30/2021 04:09:00 PM [facility] Name Value Range Interpretation Code Description Data Rosanna rce(s) Supporting Document(s) Troponin I 0.000-0.056 Normal (applies to non-numeric resu lts) [facility] ID Date Data Source [id number] 04/30/2021 03:02:00 PM [facility] Collected By: Nurse Initials: SHIMA Time Collected: 1430 Collected By: Nurse Initials: SHIMA Time Collected: 1430 Name Value Range Interpretation Code Description Data Rosanna rce(s) Supporting Document(s) Color,Urine Colorl-Dk Y Normal (applies to non-numeric res ults) [facility] Clarity,Urine Clear Normal (applies to non-numeric re sults) [facility] Specific [place],Urine 1.005-1.030 Normal (applies to non- numeric results) [facility] pH,Urine 5.0-8.0 Normal (applies to non-numeric resul ts) [facility] Protein,Urine Negative Normal (applies to non-numeric re sults) [facility] Glucose,Urine Negative Normal (applies to non-numeric re sults) [facility] Ketones,Urine Negative Normal (applies to non-numeric re sults) [facility] Blood,Urine Negative [facility] Bil[facility],Urine Negative Normal (applies to non-numeric results) [facility] Urobilinogen,Urine 0.2-1.0 Normal (applies to non-numer ic results) [facility] Leukocyte Esterase,Urine Negative Normal (applies to non -numeric results) [facility] Nitrite,Urine Negative Normal (applies to non-numeric re sults) [facility] ID Date Data Source [id number] 04/30/2021 03:02:00 PM EDT [facility] Collected By: Nurse Initials: SHIMA Time Collected: 1429 Collected By: Nurse Initials: SHIMA Time Collected: 1429 Name Value Range Interpretation Code Description Data Rosanna rce(s) Supporting Document(s) RBC,Urine None Seen [facility] WBC,Urine None Seen [facility] Casts,Urine None Seen Normal (applies to non-numeric resu lts) [facility] Squamous Cells,Urine None Seen [facility] Bacteria,Urine None Seen [facility] ital ID Date Data Source [id number] 05/01/2021 08:01:00 AM EDT [facility] Imaging Services Department Imaging Report [address], [place] [address] %(RAD)RES..mtdd.print.filter("line") Name: ROBERT CERDA : 1935 Age/Sex: 85M Ordering Provider: Maite Hutchinson MD Med Rec #: [id number] Reg Status: [facility] Room #: Date of Service: 04/30/21 Report Number: [id number] cc:Ladan Carrillo MD Send Report To: [id number] CT/CT Chest for PE with Contrast Reason for exam: chest pain, abdominal pain, new O2 requirement FINDINGS: The visualized portions of the thoracic inlet appear unremarkable. No enlarged axillary lymph nodes are identified. There is a right paratracheal lymph node measuring approximately 1.4 cm. Atherosclerotic disease is identified in the aorta and coronary arteries. 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 A right hilar lymph node is identified measuring 0.9 cm. No evidence of a pulmonary embolism is identified. Heart is prominent in size. The visualized portions of the upper abdomen show a left renal cyst measuring 3.7 cm. A right renal cyst is identified measuring 4.9 cm. Parapelvic cysts versus less likely hydronephrosis is identified in the right kidney. If there is any clinical concern for hydronephrosis on the right, then a repeat examination of the abdomen and pelvis or a sonogram could be performed. Bibasilar atelectasis is identified. No focal infiltrate is identified. Calcified granulomata are identified. There is a pleural based nodule at the left lung base measuring approximately 0.7 cm. COPD is present. Osseous structures show degenerative changes. IMPRESSION: No pulmonary embolism. 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 Atherosclerotic disease in the aorta and coronary arteries. Heart is prominent in size. 7 mm pleural based nodule at the left lung base. Continued follow up in six months is recommended. DJD. COPD. Right paratracheal lymph node measures 1.4 cm. REPORT DICTATED BY KATHIA DE LA CRUZ, REVIEWED AND SIGNED BY DR. LANDEROS. While performing the above CT exam, the following dose reduction techniques wereused: *Automated exposure control *Adjustment of the mA and/or kV according to patient size *Use of iterative reconstruction technique CT Dose in mGy: 12.36 Contrast Agent: Isovue 370 Amount in ml: 85 Method of Administration: Intraveneous REPORT SIGNATURE ON FILE Reported By: Deonte Landeros MD <Electronically signed by Deonte Landeros MD> 05/01/21 1124 Dictation Date/Time: 04/30/21 1405 Transcribed Date/Time: 05/01/21 0801 Sr. Manager: PRASHANT Name Value Range Interpretation Code Description Data Rosanna rce(s) Supporting Document(s) ID Date Data Source [id number] 05/01/2021 08:09:00 AM EDT [facility] Imaging Services Department Imaging Report [address], [place] [address] %(RAD)RES..mtdd.print.filter("line") Name: ROBERT CERDA : 1935 Age/Sex: 85M Ordering Provider: Maite Hutchinson MD Med Rec #: [id number] Reg Status: [facility] Room #: Date of Service: 04/30/21 Report Number: [id number] cc:Ladan Carrillo MD Send Report To: [id number] CT/CT Abdomen & Pelvis w Con Reason for exam: abdominal tenderness in the LUQ FINDINGS: Nodules are present at the left lung base measuring approximately 7 mm at image #15. Six month follow up to ensure stability is recommended. COPD is noted. No pleural effusion is identified. Bilateral renal cysts are identified on the right measuring 4.7 cm. On the left measuring 3.7 cm. Parapelvic cysts are identified in the right kidney. There is a second large cyst in the left kidney measuring 4.1 cm. Liver show a hypodensity near the domemeasuring 1.1 cm. This does have increased density within it and may represent blood vessels within this. MRI may be helpful for further evaluation. Gallbladder is surgically absent. Spleen, adrenal glands, and pancreas appear unremarkable. The appendix is not clearly visualized. There is incidental note of a fatty lesion identified in the lateral aspect of the pelvis on the right side measuring approximately 6.0 x5.8 cm in size. Probably represents a lipoma. Nonobstructive calculi are identified at the lower pole of the left kidney. The largest measures 7 mm. Atherosclerotic disease is identified in the aorta and iliac vessels. Urinary bladder is distended. The prostate is grossly enlarged and heterogeneous measuring 6.8 x 6.4 x 8.3 cm. The prostate is impinging up on theurinary bladder. There appears that there may be a small diverticulum on the right side of the urinary bladder measuring approximately 1.0 x 2.0 cm in size. Osseous structures demonstrate diffuse degenerative changes. IMPRESSION: 7 mm nodule at the left lung base. Follow up in six months is recommended. Heart is prominent. Tiny hypodense focus identified at the right hepatic dome, measuring 1 cm. This does have increased density within it. Cannot be clearly defined as a cyst. MRI may be helpful for further evaluation. Atherosclerotic disease in the aorta and iliac vessels. Bilateral renal cysts. Nonobstructive left renal calculi at the lower pole. The largest measures 7 mm. Appendix is not clearly visualized. Gallbladder is surgically absent. Lipoma in the musculature at the lateral margin of the right pelvis. Bladder is grosslydistended. There is suspicion for a right bladder diverticula measuring 2 x 1 cm. A prostate is grossly enlarged and is impinging up on the urinary bladder measuring 6.8 x 6.4 x 8.3 cm. DJD. REPORT DICTATED BY KATHIA DE LA CRUZ, REVIEWED AND SIGNED BY DR. LANDEROS/ While performing the above CT exam, the following dose reduction techniques wereused: *Automated exposure control *Adjustment of the mA and/or kV according to patient size *Use of iterative reconstruction technique CT Dose in mGy: 11.11 Contrast Agent: Isovue 370 Amount in ml: 85 Method of Administration: Intraveneous REPORT SIGNATURE ON FILE Reported By: Deonte Landeros MD <Electronically signed by Deonte Landeros MD> 05/01/21 1124 Dictation Date/Time: 04/30/21 1405 Transcribed Date/Time: 05/01/21 0809 Transcri ptionist: PRASHANT Name Value Range Interpretation Code Description Data Rosanna rce(s) Supporting Document(s) ID Date Data Source [id number] 04/30/2021 11:45:00 AM EDT [facility] Name Value Range Interpretation Code Description Data Rosanna rce(s) Supporting Document(s) Respiratory specimen severe acute respir atory syndrome coronavirus 2 (SARS-CoV-2) RNA Negative (qualifier value) [place] [facility] This lab was ordered by [place] Tresa beckham and reported by . ID Date Data Source [id number] 04/30/2021 12:21:00 PM EDT [facility] Name Value Range Interpretation Code Description Data Rosanna rce(s) Supporting Document(s) SARS-CoV-2 RNA Negative Normal (applies to non-numeric r esults) [facility] Negative results should be treated as pr esumptive and, if inconsistent with clinical signs and symptoms or necessary for patient management, should be tested with different authorized or cleared molecular tests. Negative results do not preclude SARS-CoV-2 infection and should not be used as the sole basis for patient management decisions. Negative results should be considered in the context of a patient???s recent exposures, history and the presence of clinical signs and symptoms consistent with COVID-19. This test has not been FDA cleared or approved; this test has been authorized by [facility] under an Emergency Use Authorization for use by laboratories certified under the Clinical Laboratory Improvement Amendments of 1988 (CLIA), 42 U.S.C. ???263a, to perform moderate complexity/high complexity tests and at the Point of Care (POC), i.e., in patient care settings operating under a CLIA Certificate of Waiver, Certificate of Compliance, or Certificate of Accreditation. Factsheets for healthcare providers: https://www.fda.gov/media/393655/download Factsheets for patients: https://www.fda.gov/media/880015/download The ID NOW Instrument is a rapid molecular in vitro diagnostic test utilizing an isothermal nucleic acid amplification technology intended for the qualitative detection of nucleic acid from the SARS-CoV-2 viral RNA. THIS IS A STATE REPORTABLE COMMUNICABLE DISEASE. Manual entry verified by Kelsy Werner 04/30/21 1221 ID Date Data Source [id number] 04/30/2021 12:27:00 PM EDT [facility] Name Value Range Interpretation Code Description Data Rosanna rce(s) Supporting Document(s) B-Type Natriuretic Peptide BNP <450 Normal (applies to non-numeric results) [facility] Results of this test should always be us ed in conjunction with the patients medical history, clinical presentation, and other findings. ID Date Data Source [id number] 04/30/2021 12:21:00 PM [facility] Name Value Range Interpretation Code Description Data Rosanna rce(s) Supporting Document(s) D-Dimer,Quant 0.19-0.50 Above high normal [facility] The negative predictive value for DVT or PE is at 98% when the result is below the cut off value of 0.50 mg/L FEU. Increases in D-Dimer concentration observed with thromboembolic events can be variable due to localization, size, and age of thrombus. Therefore, a thromboembolic event cannot be diagnosed with certainty on the basis of the reference range. D-Dimers may also be elevated for a variety of disorders including: advanced age, , coronary disease, cancer, liver disease, infection, inflammation, hematoma, DIC, trauma, post surgery, diabetes, thrombolytic therapy, stress, and general hospitialization. D-Dimer levels may be decreased in patients on anticoagulant therapy. ID Date Data Source [id number] 04/30/2021 12:20:00 PM [facility] Name Value Range Interpretation Code Description Data Rosanna rce(s) Supporting Document(s) Sodium 138 mmol/L 136-145 Normal (applies to non-numeric resul ts) [facility] Potassium 3.5-5.1 Normal (applies to non-numeric resul ts) [facility] Chloride 102 mmol/L 98-107 Normal (applies to non-numeric resul ts) [facility] Carbon Dioxide CO2 21-32 Normal (applies to non-numer ic results) [facility] Anion Gap 5.0-16.0 Normal (applies to non-numeric resul ts) [facility] BUN 16 mg/dL 7-18 Normal (applies to non-numeric results) [facility] Creatinine,Serum 0.8-1.5 Normal (applies to non-numeric results) [facility] GFR >60 Normal (applies to non-numeric results) [facility] Glucose Level 105 mg/dL 60-99 Above high normal [facility] Reference range is only applicable when patient is fasting Note the following drug interference: Sulfasalazine Sulfapyridine Can see falsely depressed Can see falsely elevated result with up to 17% results with up to 11% decrease in measurement increase in measurement Recommend patients be collected for this test prior to administration of either drug. Calcium 8.5-10.1 Normal (applies to non-numeric resul ts) [facility] Bilirubin,Total 0.1-1.9 Normal (applies to non-numeric results) [facility] SGOT(AST) 12 U/L 15-37 Below low normal [facility] Note the following drug interference: Sulfasalazine Sulfapyridine Can see falsely depressed Can see falsely elevated result with up to 10% results with up to 10% decrease in measurement increase in measurement Recommend patients be collected for this test prior to administration of either drug. SGPT(ALT) 26 U/L 12-78 Normal (applies to non-numeric resul ts) [facility] Note the following drug interference: Sulfasalazine Sulfapyridine Can see falsely depressed Can see falsely elevated result with up to 29% results with up to 10% decrease in measurement increase in measurement Recommend patients be collected for this test prior to administration of either drug. Alkaline Phosphatase 99 U/L 38-126 Normal (applies to non-num kyle results) [facility] can increase Alkaline Phosp le vels up to 2 times the normal adult value. Normal values for children and adolescents are 2 to 3 times the normal adult value. Total Protein 6.0-8.2 Normal (applies to non-numeric re sults) [facility] Albumin Level 3.4-5.0 Normal (applies to non-numeric re sults) [facility] ID Date Data Source [id number] 04/30/2021 12:20:00 PM EDT [facility] Name Value Range Interpretation Code Description Data Rosanna rce(s) Supporting Document(s) Troponin I 0.000-0.056 Normal (applies to non-numeric resu lts) [facility] ID Date Data Source [id number] 05/01/2021 06:55:00 AM EDT [facility] Imaging Services Department Imaging Report [address] [address] %(RAD)RES..mtdd.print.filter("line") Name: ROBERT CERDA SR : 1935 Age/Sex: 85M Ordering Provider: Maite Hutchinson MD Med Rec #: [id number] Reg Status: [facility] Room #: Date of Service: 04/30/21 Report Number: [id number] cc:Ladan Carrillo MD Send Report To: [id number] XRP/XR Chest Xray Portable Reason for exam: chest pain FINDINGS: Slight atherosclerotic changes in the aorta. Lung durán are otherwise clear. Heart and mediastinum are within normal limits with no acute disease. IMPRESSION: NO ACUTE ABNORMALITIES. Time portable performed: 1154 Fluoroscopy time in seconds: Number of Exposures: Contrast Agent in ml: Method of Administration: REPORT SIGNATURE ON FILE Reported By: Kathia Diaz MD <Electronically signed by Charlene Diaz MD> 05/01/21 0924 Dictation Date/Time: 04/30/21 1224 Transcribed Date/Time: 05/01/21 0655 Sr. Manager: ANN-MARIE Name Value Range Interpretation Code Description Data Rosanna rce(s) Supporting Document(s) ID Date Data Source [id number] 04/30/2021 11:52:00 AM EDT [facility] Name Value Range Interpretation Code Description Data Rosanna rce(s) Supporting Document(s) White Blood Count 3.5-10.5 Normal (applies to non-numeri c results) [facility] Red Blood Count 4.30-5.70 Normal (applies to non-numeric results) [facility] Hemoglobin 13.5-17.5 Normal (applies to non-numeric resul ts) [facility] Hematocrit 38.8-50.0 Normal (applies to non-numeric resul ts) [facility] Mean Corpuscular Volume 81.2-95.1 Normal (applies to non- numeric results) [facility] Mean Corpuscular Hgb 25.6-32.2 Normal (applies to non-num kyle results) [facility] Mean Corpuscular Hgb Conc 32.0-36.0 Normal (applies to no n-numeric results) [facility] Red Cell Distribution Width 11.8-15.6 Normal (appli es to non-numeric results) [facility] Platelet Count 192 x10 3/uL 150-450 Normal (applies to non-numeric results) [facility] Mean Platelet Volume 9.4-12.4 Normal (applies to non-num kyle results) [facility] Neutrophils% (Auto) 31.0-71.0 Normal (applies to non-nume dasha results) [facility] Lymphocytes% (Auto) 20.0-55.0 Normal (applies to non-nume dasha results) [facility] Monocytes% (Auto) 4.0-12.0 Normal (applies to non-numeri c results) [facility] Eosinophils% (Auto) 1.0-8.0 Normal (applies to non-nume dasha results) [facility] Basophils% (Auto) 0.0-2.0 Normal (applies to non-numeri c results) [facility] Immature Granulocytes% (Auto) 0.0-2.0 Normal (kristina lies to non-numeric results) [facility] Neutrophils# (Auto) 1.50-6.20 Normal (applies to non-nume dasha results) [facility] Lymphocytes# (Auto) 1.20-4.00 Normal (applies to non-nume dasha results) [facility] Monocytes# (Auto) 0.00-0.90 Normal (applies to non-numeri c results) [facility] Eosinophils# (Auto) 0.00-0.50 Normal (applies to non-nume dasha results) [facility] Basophils# (Auto) 0.00-0.20 Normal (applies to non-numeri c results) [facility] Immature Granulocytes# (Auto) 0.00-7.00 No rmal (applies to non-numeric results) [facility] ID Date Data Source [id number] 04/23/2021 02:45:00 PM EDT [facility] Imaging Services Department Imaging Report [address], [place] [address] %(RAD)RES..mtdd.print.filter("line") Name: ROBERT CERDA : 1935 Age/Sex: 85M Ordering Provider: ROSEANNE Green Med Rec #: [id number] Reg Status: [facility] Room #: Date of Service: 04/23/21 Report Number: [id number] cc:Ladan Carrillo MD Send Report To: [id number] CT/CT Cervical Spine No Contrast Reason for exam: fall FINDINGS: Diffuse intervertebral disc space narrowing is identified. Diffuse facet joint hypertrophy is identified. No evidence of an acute fracture is identified. Prevertebral soft tissues appear unremarkable. Soft tissues show no acute findings. Scattered nonspecific, nonenlarged bilateral cervical nodes are identified. IMPRESSION: Degenerative changes. No distinct fracture. REPORT DICTATED BY KATHIA DE LA CRUZ, REVIEWED AND SIGNED BY DR. DIAZ While performing the above CT exam, the following dose reduction techniques wereused: *Automated exposure control *Adjustment of the mA and/or kV according to patient size *Use of iterative reconstruction technique CT Dose in mGy: Contrast Agent: Amount in ml: Method of Administration: REPORT SIGNATURE ON FILE Reported By: Kathia Diaz MD <Electronically signed by Charlene Diaz MD> 04/23/21 1636 Dictation Date/Time: 04/23/21 1302 Transcribed Date/Time: 04/23/21 1445 Sr. Manager: DERIC Name Value Range Interpretation Code Description Data Rosanna rce(s) Supporting Document(s) ID Date Data Source [id number] 04/24/2021 09:24:00 AM EDT [facility] Imaging Services Department Imaging Report [address], [place] [address] %(RAD)RES..mtdd.print.filter("line") Name: ROBERT CERDA : 1935 Age/Sex: 85M Ordering Provider: ROSEANNE Green Med Rec #: [id number] Reg Status: [facility] Room #: Date of Service: 04/23/21 Report Number: [id number] cc:Ladan Carrillo MD; ROSEANNE Grene Send Report To: [id number] XRP/XR Chest 2 View [Pa & Lat] Reason for exam: pain fall Comparison is made to 04/07/20. FINDINGS: The cardiac and mediastinal silhouettes appear normal and the lungs are clear. The bones and soft tissues a re normal. The upper abdomen is unremarkable. IMPRESSION: No acute disease identifiable. Time portable performed: Fluoroscopy time in seconds: Number of Exposures: Contrast Agent in ml: Method of Administration: REPORT SIGNATURE ON FILE Reported By: Chad Myers MD <Electronically signed by Chad Myers MD> 04/24/21 1137 Dictation Date/Time: 04/23/21 0513 Transcribed Date/Time: 04/24/21 09 Sr. Manager: YURI Name Value Range Interpretation Code Description Data Rosanna rce(s) Supporting Document(s) ID Date Data Source [id number] 04/23/2021 02:42:00 PM [facility] Imaging Services Department Imaging Report [address], [place] [address] %(RAD)RES..mtdd.print.filter("line") Name: ROBERT CERDA SR : 1935 Age/Sex: 85M Ordering Provider: ROSEANNE Green Med Rec #: [id number] Reg Status: [facility] ER Room #: Date of Service: 04/23/21 Report Number: [id number] cc:Ladan Carrillo MD Send Report To: [id number] CT/CT Head No Contrast Reason for exam: trauma FINDINGS: Diffuse atrophy is identified. Mild periventricular white matter ischemic changes are identified. No clear evidence of an acute hemorrhage or infarct is identified. No midline shift or mass effect is identified. No extraaxial fluid collections are identified. The paranasal sinuses and mastoidair cells appear unremarkable. IMPRESSION: Chronic atrophy and mild periventricular white matter ischemic changes are identified. 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 No acute hemorrhage or infarct. No acute fracture. REPORT DICTATED BY KATHIA DE LA CRUZ, REVIEWED AND SIGNED BY DR. DIAZ While performing the above CT exam, the following dose reduction techniques wereused: *Automated exposure control *Adjustment of the mA and/or kV according to patient size *Use of iterative reconstruction technique CT Dose in mGy: Contrast Agent: Amount in ml: Method of Administration: REPORT SIGNATURE ON FILE Reported By: Kathia Diaz MD <Electronically signed by Charlene Diaz MD> 04/23/21 1636 Dictation Date/Time: 04/23/21 1302 Transcribed Date/Time: 04/23/21 1442 Sr. Manager: DERIC Name Value Range Interpretation Code Description Data Rosanna rce(s) Supporting Document(s) ID Date Data Source [id number] 04/23/2021 03:24:00 PM EDT [facility] Name Value Range Interpretation Code Description Data Rosanna rce(s) Supporting Document(s) Electrophoresis Total Protein 6.3-8.2 Ve ry abnormal (applies to non-numeric units [facility] Electrophoresis Albumin 55.8-66.1 Normal (applies to non- numeric results) [facility] Electrophoresis Alpha 1 2.9-4.9 Normal (applies to non- numeric results) [facility] Electrophoresis Alpha 2 7.1-11.8 Normal (applies to non- numeric results) [facility] Electrophoresis Beta 8.4-13.1 Normal (applies to non-num kyle results) [facility] Electrophoresis Gamma 11.1-18.8 Very abnormal (applies to non-numeric units [facility] Electrophoresis Comments Normal (applies to non -numeric results) [facility] Result: Suspicious pattern seen on prote in electrophoresis, immunotyping added by reflex. See scanned/supplementary report. Test [place] [address] Immuno Electrophoresis Reflex Normal (applies t o non-numeric results) [facility] Result: Current Interpretation: Negative for monoclonal immunoglobulins. Reviewed by: Williams Benitez MD, PhD 04/21/2021 15:34. Test [place] [address] ID Date Data Source [id number] 04/23/2021 03:24:00 PM EDT [facility] Name Value Range Interpretation Code Description Data Rosanna rce(s) Supporting Document(s) Thiamine (Vitamin B1) result 142 nmol/L 70-180 Nor mal (applies to non-numeric results) [facility] ADDITIONAL INFORMATIO N This test was developed and its performance characteristics determined by [facility] in a manner consistent with CLIA requirements. This test has not been cleared or approved by the U.S. Food and Drug Administration. Test Performed by: [facility] [place] [address] Warehouse Distribution Associate: Robert Jensen M.D. Ph.D.; CLIA# [id number] ID Date Data Source [id number] [facility] Value Range Interpretation Code Description Data Rosanna rce(s) Supporting Document(s) LAURO Ab,HEp-2 IgG,S result Normal (applies to no n-numeric results) [facility] REFERENCE VALUE------ <1:80 (Negative) ADDITIONAL INFORMATION Method: Immunofluorescence using HEp-2 cellular substrate. Test Performed by: [facility] [place] [address] Warehouse Distribution Associate: Robert Jensen M.D. Ph.D.; CLIA# [id number] ID Date Data Source [id number] 04/23/2021 03:24:00 PM [facility] Value Range Interpretation Code Description Data [facility] rce(s) Supporting Document(s) Vitamin E result 5.5 - 17.0 Normal (applies to non-numeric results) [facility] ADDITIONAL INFORMATIO N This test was developed and its performance characteristics determined by [facility] in a manner consistent with CLIA requirements. This test has not been cleared or approved by the U.S. Food and Drug Administration. Test Performed by: [place] [address] Warehouse Distribution Associate: Robert Jensen M.D. Ph.D.; CLIA# [id number] ID Date Data Source [id number] 04/23/2021 03:24:00 PM EDT [facility] Name Value Range Interpretation Code Description Data [facility](s) Supporting Document(s) Vitamin B6 Result 6 mcg/L 5-50 Normal (applies to non-numeri c results) [facility] ADDITIONAL INFORMATIO N This test was developed and its performance characteristics determined by [facility] in a manner consistent with CLIA requirements. This test has not been cleared or approved by the U.S. Food and Drug Administration. Vitamin B6 Pyridoxic acid Res 9 mcg/L 3-30 No rmal (applies to non-numeric results) [facility] ADDITIONAL INFORMATIO N This test was developed and its performance characteristics determined by [facility] in a manner consistent with CLIA requirements. This test has not been cleared or approved by the U.S. Food and Drug Administration. Test Performed by: [facility] [place] [address] Warehouse Distribution Associate: Robert Jensen M.D. Ph.D.; CLIA# [id number] ID Date Data Source [id number] 04/23/2021 03:14:00 PM EDT [facility] Name Value Range Interpretation Code Description Data [facility](s) Supporting Document(s) Electrophoresis Total Protein 6.3-8.2 [facility] Electrophoresis Albumin 55.8-66.1 Normal (applies to non- numeric results) [facility] Electrophoresis Alpha 1 2.9-4.9 Normal (applies to non- numeric results) [facility] Electrophoresis Alpha 2 7.1-11.8 Normal (applies to non- numeric results) [facility] Electrophoresis Beta 8.4-13.1 Normal (applies to non-num kyle results) [facility] Electrophoresis Gamma 11.1-18.8 [facility] Electrophoresis Comments Normal (applies to non -numeric results) [facility] Result: Suspicious pattern seen on prote in electrophoresis, immunotyping added by reflex. See scanned/supplementary report. Test performed [place] [address] Immuno Electrophoresis Reflex Normal (applies t o non-numeric results) [facility] Result: Current Interpretation: Negative for monoclonal immunoglobulins. Reviewed by: Williams Benitez MD, PhD 04/21/2021 15:34. Test performed or referred by The [address] [address] ID Date Data Source [id number] 04/23/2021 03:14:00 PM EDT [facility] Name Value Range Interpretation Code Description Data [facility] rce(s) Supporting Document(s) Thiamine (Vitamin B1) result 142 nmol/L 70-180 Nor mal (applies to non-numeric results) [facility] ADDITIONAL INFORMATIO N This test was developed and its performance characteristics determined by [facility] in a manner consistent with CLIA requirements. This test has not been cleared or approved by the U.S. Food and Drug Administration. Test Performed by: [place] [address] Warehouse Distribution Associate: Robert Jensen M.D. Ph.D.; CLIA# [id number] ID Date Data Source [id number] 04/23/2021 03:14:00 PM EDT [facility] Value Range Interpretation Code Description Data [facility](s) Supporting Document(s) Vitamin E result 5.5 - 17.0 Normal (applies to non-numeric results) [facility] ADDITIONAL INFORMATIO N This test was developed and its performance characteristics determined by [facility] in a manner consistent with CLIA requirements. This test has not been cleared or approved by the U.S. Food and Drug Administration. Test Performed by: [facility] [place] [address] Warehouse Distribution Associate: Robert Jensen M.D. Ph.D.; CLIA# [id number] ID Date Data Source [id number] 04/23/2021 03:14:00 PM EDT [facility] Value Range Interpretation Code Description Data Rosanna rce(s) Supporting Document(s) LAURO Ab,HEp-2 IgG,S result Normal (applies to no n-numeric results) [facility] REFERENCE VALUE------ <1:80 (Negative) ADDITIONAL INFORMATION Method: Immunofluorescence using HEp-2 cellular substrate. Test Performed by: [facility] [place] [address] Warehouse Distribution Associate: Robert Jensen M.D. Ph.D.; CLIA# [id number] ID Date Data Source [id number] 04/23/2021 03:14:00 PM [facility] Value Range Interpretation Code Description Data Rosanna rce(s) Supporting Document(s) Vitamin B6 result 6 mcg/L 5-50 Normal (applies to non-numeri c results) [facility] ADDITIONAL INFORMATIO N This test was developed and its performance characteristics determined by [facility] in a manner consistent with CLIA requirements. This test has not been cleared or approved by the U.S. Food and Drug Administration. Vitamin B6 Pyridoxic Acid res 9 mcg/L 3-30 No rmal (applies to non-numeric results) [facility] ADDITIONAL INFORMATIO N This test was developed and its performance characteristics determined by [facility] in a manner consistent with CLIA requirements. This test has not been cleared or approved by the U.S. Food and Drug Administration. Test Performed by: [facility] [address] [place] [address] Warehouse Distribution Associate: Robert Jensen M.D. Ph.D.; CLIA# [id number] ID Date Data Source [id number] 04/18/2021 11:34:00 PM EDT [facility] Name Value Range Interpretation Code Description Data Rosanna rce(s) Supporting Document(s) Vitamin B12 result 424 pg/mL 193-986 Normal (applies to non-numer ic results) [facility] Test Performed By: [place] [address] Director: Meredith Valle MD ID Date Data Source [id number] 04/18/2021 11:34:00 PM EDT [facility] Value Range Interpretation Code Description Data Rosanna rce(s) Supporting Document(s) Folate result 2.76-20.0 Normal (applies to non-numeric re sults) [facility] Test Performed By: [facility] [address] [place] [address] Director: Meredith Valle MD ID Date Data Source [id number] 04/18/2021 11:34:00 PM EDT [facility] Name Value Range Interpretation Code Description Data Rosanna rce(s) Supporting Document(s) RF Rheumatoid Factor result 0.0-15.0 Normal (appli es to non-numeric results) [facility] Test Performed By: [facility] [address] [place] [address] Director: Meredith Valle MD ID Date Data Source [id number] 04/18/2021 07:42:00 PM EDT [facility] Name Value Range Interpretation Code Description Data Rosanna rce(s) Supporting Document(s) Folate 2.76-20.0 Normal (applies to non-numeric resul ts) [facility] Test Performed By: [facility] [address] [place] [address] Director: Meredith Valle MD ID Date Data Source [id number] 04/18/2021 07:42:00 PM EDT [facility] Name Value Range Interpretation Code Description Data Rosanna rce(s) Supporting Document(s) Vitamin B12 424 pg/mL 193-986 Normal (applies to non-numeric resu lts) [facility] Test Performed By: [facility] [address] [place] [address] Director: Meredith Valle MD ID Date Data Source [id number] 04/18/2021 07:42:00 PM EDT [facility] Name Value Range Interpretation Code Description Data Rosanna rce(s) Supporting Document(s) Rheumatoid Factor 0.0-15.0 Normal (applies to non-numeri c results) [facility] Test Performed By: [facility] [address] [place] [address] Director: Meredith Valle MD ID Date Data Source [id number] 04/18/2021 12:34:00 PM EDT [facility] Name Value Range Interpretation Code Description Data Rosanna rce(s) Supporting Document(s) White Blood Count 3.5-10.5 Normal (applies to non-numeri c results) [facility] Red Blood Count 4.30-5.70 Normal (applies to non-numeric results) [facility] Hemoglobin 13.5-17.5 Normal (applies to non-numeric resul ts) [facility] Hematocrit 38.8-50.0 Normal (applies to non-numeric resul ts) [facility] Mean Corpuscular Volume 81.2-95.1 Normal (applies to non- numeric results) [facility] Mean Corpuscular Hgb 25.6-32.2 Normal (applies to non-num kyle results) [facility] Mean Corpuscular Hgb Conc 32.0-36.0 Normal (applies to no n-numeric results) [facility] Red Cell Distribution Width 11.8-15.6 Normal (appli es to non-numeric results) [facility] Platelet Count 194 x10 3/uL 150-450 Normal (applies to non-numeric results) [facility] Mean Platelet Volume 9.4-12.4 Normal (applies to non-num kyle results) [facility] Neutrophils% (Auto) 31.0-71.0 Normal (applies to non-nume dasha results) [facility] Lymphocytes% (Auto) 20.0-55.0 Normal (applies to non-nume dasha results) [facility] Monocytes% (Auto) 4.0-12.0 Normal (applies to non-numeri c results) [facility] Eosinophils% (Auto) 1.0-8.0 Normal (applies to non-nume dasha results) [facility] Basophils% (Auto) 0.0-2.0 Normal (applies to non-numeri c results) [facility] Immature Granulocytes% (Auto) 0.0-2.0 Normal (kristina lies to non-numeric results) [facility] Neutrophils# (Auto) 1.50-6.20 Normal (applies to non-nume dasha results) [facility] Lymphocytes# (Auto) 1.20-4.00 Normal (applies to non-nume dasha results) [facility] Monocytes# (Auto) 0.00-0.90 Normal (applies to non-numeri c results) [facility] Eosinophils# (Auto) 0.00-0.50 Normal (applies to non-nume dasha results) [facility] Basophils# (Auto) 0.00-0.20 Normal (applies to non-numeri c results) [facility] Immature Granulocytes# (Auto) 0.00-7.00 No rmal (applies to non-numeric results) [facility] ID Date Data Source [id number] 04/18/2021 12:34:00 PM EDT [facility] Name Value Range Interpretation Code Description Data Rosanna rce(s) Supporting Document(s) Erythrocyte Sedimentation rate 5 mm/hr 0-15 N ormal (applies to non-numeric results) [facility] ID Date Data Source [id number] 04/18/2021 12:04:00 PM EDT [facility] Name Value Range Interpretation Code Description Data Rosanna rce(s) Supporting Document(s) Thyroid Stimulate Hormone TSH 0.358-3.74 No rmal (applies to non-numeric results) [facility] ID Date Data Source [id number] 04/18/2021 12:04:00 PM EDT [facility] Name Value Range Interpretation Code Description Data Rosanna rce(s) Supporting Document(s) Sodium 143 mmol/L 136-145 Normal (applies to non-numeric resul ts) [facility] Potassium 3.5-5.1 Normal (applies to non-numeric resul ts) [facility] Chloride 104 mmol/L 98-107 Normal (applies to non-numeric resul ts) [facility] Carbon Dioxide CO2 21-32 Normal (applies to non-numer ic results) [facility] Anion Gap 5.0-16.0 Normal (applies to non-numeric resul ts) [facility] BUN 17 mg/dL 7-18 Normal (applies to non-numeric results) [facility] Creatinine,Serum 0.8-1.5 Normal (applies to non-numeric results) [facility] GFR >60 Normal (applies to non-numeric results) [facility] Glucose Level 171 mg/dL 60-99 Above high normal [facility] Reference range is only applicable when patient is fasting Note the following drug interference: Sulfasalazine Sulfapyridine Can see falsely depressed Can see falsely elevated result with up to 17% results with up to 11% decrease in measurement increase in measurement Recommend patients be collected for this test prior to administration of either drug. Calcium 8.5-10.1 Normal (applies to non-numeric resul ts) [facility] Bilirubin,Total 0.1-1.9 Normal (applies to non-numeric results) [facility] SGOT(AST) 15 U/L 15-37 Normal (applies to non-numeric resul ts) [facility] Note the following drug interference: Sulfasalazine Sulfapyridine Can see falsely depressed Can see falsely elevated result with up to 10% results with up to 10% decrease in measurement increase in measurement Recommend patients be collected for this test prior to administration of either drug. SGPT(ALT) 28 U/L 12-78 Normal (applies to non-numeric resul ts) [facility] Note the following drug interference: Sulfasalazine Sulfapyridine Can see falsely depressed Can see falsely elevated result with up to 29% results with up to 10% decrease in measurement increase in measurement Recommend patients be collected for this test prior to administration of either drug. Alkaline Phosphatase 92 U/L 38-126 Normal (applies to non-num kyle results) [facility] can increase Alkaline Phosp le vels up to 2 times the normal adult value. Normal values for children and adolescents are 2 to 3 times the normal adult value. Total Protein 6.0-8.2 Normal (applies to non-numeric re sults) [facility] Albumin Level 3.4-5.0 Normal (applies to non-numeric re sults) [facility] ID Date Data Source [id number] 04/18/2021 11:10:00 AM EDT [facility] Name Value Range Interpretation Code Description Data Rosanna rce(s) Supporting Document(s) Hemoglobin A1c Normal (applies to non-numeric r esults) [facility] Reference Range Normal: < 5.7% Pr ediabetes: 5.7-6.4% Diabetes: > 6.5% Estimated Avg Glucose 131 mg/dL 126-240 Normal (applies to non-numeric results) [facility] ID Date Data Source [id number] 02/19/2021 12:00:00 AM EDT eCW1 ([facility]) Name Value Range Interpretation Code Description Data Rosanna rce(s) Supporting Document(s) 179 VITAMIN B12 LEVEL eCW1 ([facility]) 16.7 FOLATE eCW1 ([facility]) ID Date Data Source FREE T4 & TSH PANEL 02/19/2021 12:00:00 AM EDT eCW1 ([facility]) Name Value Range Interpretation Code Description Data Rosanna rce(s) Supporting Document(s) 0.949 0.358-3.740 THYROID STIMULATING HORM ONE eCW1 ([facility]) 0.69 0.76-1.46 FREE T4 eCW1 ([facility]) ID Date Data Source Comprehensive Metabolic Profile (CMP) 02/19/2021 12:00:00 AM EDT eCW1 ([facility]) Name Value Range Interpretation Code Description Data Rosanna rce(s) Supporting Document(s) 146 70-100 GLUCOSE, FASTING eCW1 ([facility]) 16 7-18 BLOOD UREA NITROGEN eCW1 ([facility] hospital) 1.10 0.70-1.30 CREATININE FOR GFR eCW1 ([facility]) 4.1 3.5-5.1 POTASSIUM SERUM eCW1 ([facility]) 143 136-145 SODIUM LEVEL eCW1 ([facility]) > 60.0 >35 GLOMERULAR FILTRATION RATE eCW 1 ([facility]) 25 21-32 CARBON DIOXIDE LEVEL eCW1 ([facility]) 110 98-107 CHLORIDE LEVEL eCW1 ([facility]) 9.1 8.8-10.2 CALCIUM LEVEL eCW1 ([facility]) 27 12-78 ALT/SGPT eCW1 ([facility]) 12 7-37 AST/SGOT eCW1 ([facility]) 97 45-117 ALKALINE PHOSPHATASE eCW1 ([facility]) 5.9 6.4-8.2 TOTAL PROTEIN eCW1 ([facility]) 3.4 3.2-5.2 ALBUMIN eCW1 ([facility]) 0.6 0.2-1.0 BILIRUBIN,TOTAL eCW1 ([facility]) 1.4 ALBUMIN/GLOBULIN RATIO eCW1 ([facility]) ID Date Data Source CBC with Differential 02/19/2021 12:00:00 AM EDT eCW1 ([facility]) Name Value Range Interpretation Code Description Data Rosanna rce(s) Supporting Document(s) 6.5 4.0-10.0 WHITE BLOOD COUNT eCW1 ([facility]) 14.0 13.5-17.5 HEMOGLOBIN eCW1 ([facility]) 4.59 4.30-6.10 RED BLOOD COUNT eCW1 ([facility]) 42.2 42.0-52.0 HEMATOCRIT eCW1 ([facility]) 91.9 80.0-96.0 MEAN CORPUSCULAR VOLUME e CW1 ([facility]) 30.5 27.0-33.0 MEAN CORPUSCULAR HEMOGLOB IN eCW1 ([facility]) 13.8 11.5-14.5 RED CELL DISTRIBUTION WID TH eCW1 ([facility]) 33.2 32.0-36.5 MEAN CORPUSCULAR HGB CONC eCW1 ([facility]) 59.0 36.0-66.0 NEUTROPHILS % eCW1 ([facility]) 212 150-450 PLATELET COUNT, AUTOMATED eCW1 ([facility]) 5.4 0.0-3.0 EOS % eCW1 ([facility]) 10.0 2.0-8.0 MONO % eCW1 ([facility]) 24.0 24.0-44.0 LYMPH % eCW1 ([facility]) 1.6 1.5-5.0 LYMPH # eCW1 ([facility]) 3.8 1.5-8.5 NEUTROPHILS # eCW1 ([facility]) 1.1 0.0-1.0 BASO % eCW1 ([facility]) 0.1 0.0-0.2 BASO # eCW1 ([facility]) 0.4 0.0-0.5 EOS # eCW1 ([facility]) 0.7 0.0-0.8 MONO # eCW1 ([facility]) ID Date Data Source [id number] 10/23/2020 11:58:00 AM EDT [facility] Imaging Services Department Imaging Report [address], [place] [address] %(RAD)RES..mtdd.print.filter("line") Name: ROBERT CERDA : 1935 Age/Sex: 85M Ordering Provider: Dina Golden MD Med Rec #: [id number] Reg Status: [facility] Room #: Date of Service: 10/22/20 Report Number: [id number] cc:Sushila Rubalcava MD Send Report To: [id number] XRP/XR Knee Rt 3 View Reason for exam: knee pain FINDINGS: Examination reveals a total knee replacement. Osseous and surgical components are in near anatomic alignment and position. No evidence of an acutefracture or dislocation is id entified. No evidence of a joint effusion is identified. IMPRESSION: Total knee replacement. No acute findings. REPORT DICTATED BY KATHIA DE LA CRUZ, REVIEWED AND SIGNED BY DR. MYERS. Time portable performed: Fluoroscopy time in seconds: Number of Exposures: Contrast Agent in ml: Method of Administration: REPORT SIGNATURE ON FILE Reported By: Chad Myers MD <Electronically signed by Chad Myers MD> 10/24/20 1152 Dictation Date/Time: 10/22/20 1222 Transcribed Date/Time: 10/23/20 1158 Trans criptionist: PRASHANT Name Value Range Interpretation Code Description Data Rosanna rce(s) Supporting Document(s) ID Date Data Source [id number] 10/23/2020 12:04:00 PM EDT [facility] Imaging Services Department Imaging Report [address] [place] [id number] %(RAD)RES..mtdd.print.filter("line") Name: ROBERT CERDA : 1935 Age/Sex: 85M Ordering Provider: Dina Golden MD Med Rec #: [id number] Reg Status: [facility] Room #: Date of Service: 10/22/20 Report Number: [id number] cc:Sushila Rubalcava MD Send Report To: [id number] US/US Dup Lower Ext Artery Rt Reason for exam: r calf pain Ultrasound imaging performed using color flow and spectral Doppler interrogation. FINDINGS: There is some mild calcified plaque present at the right mid superficial femoral artery. There is some moderate calcified plaque at the posterior tibial artery at its mid segment. The peak systolic velocities in cm/sec for the right are as follows: Common femoral artery 71.5; superficial femoral artery 74.7; popliteal artery 42.8; posterior tibial artery 66; anterior tibial artery 31.5; proximal peroneal artery 18; mid peroneal artery 6.3; distal peroneal artery 20; dorsalis pedis artery 22.5. There is greater than doubling of the peak systolic velocity between the mid and distal right peroneal artery suggesting the presence of a hemodynamically significant stenosis. IMPRESSION: No areas of occlusion identified. Greater than doubling of the peak systolic velocity between the mid and distal right peroneal artery suggesting the presence of a hemodynamically significant stenosis. Further evaluation may be made with CTA with lower extremity run off. Time portable performed: Fluoroscopy time in seconds: Number of Exposures: Contrast Agent in ml: Method of Administration: REPORT SIGNATURE ON FILE Reported By: Chad Myers MD <Electronically signed by Chad Myers MD> 10/24/20 1156 Dictation Date/Time: 10/22/20 1309 Transcribed Date/Time: 10/23/20 1204 Sr. Manager: KIM Name Value Range Interpretation Code Description Data Rosanna rce(s) Supporting Document(s) ID Date Data Source [id number] 10/23/2020 11:57:00 AM EDT [facility] Imaging Services Department Imaging Report [address], [place] [address] %(RAD)RES..mtdd.print.filter("line") Name: ROBERT CERDA : 1935 Age/Sex: 85M Ordering Provider: Dina Golden MD Med Rec #: [id number] Reg Status: [facility] Room #: Date of Service: 10/22/20 Report Number: [id number] cc:Dina Golden MD; Sushila Rubalcava MD Send Report To: [id number] US/US Duplex Lower Ext Veins Rt Reason for exam: r calf pain Technique: Ultrasound imaging performed using color flow and spectral Doppler interrogation. FINDINGS: There is normal compressibility of the deep venous system from the external iliac through the popliteal vein with normal augmentation identified. IMPRESSION: NO EVIDENCE FOR ANY UNDERLYING DVT. REPORT DICTATED BY KATHIA DE LA CRUZ, REVIEWED AND SIGNED BY DR. MYERS. REPORT SIGNATURE ON FILE Reported By: Chad Myers MD <Electronically signed by Chad Myers MD> 10/24/20 1152 Dictation Date/Time: 10/22/20 1222 Transcribed Date/Time: 10/23/20 1157 Sr. Manager: PRASHANT Name Value Range Interpretation Code Description Data Rosanna rce(s) Supporting Document(s) ID Date Data Source [facility] SPINE LS COMPLETE 08/27/2020 12:00:00 AM EST eCW1 ([facility]) Name Value Range Interpretation Code Description Data Rosanna rce(s) Supporting Document(s) [facility] SPINE LS COMPLETE eCW1 ([facility]) ID Date Data Source [facility] Hip,AP,LAT to include Pelvis 08/22/2020 12:00:00 AM EST eCW1 ([facility]) Name Value Range Interpretation Code Description Data Rosanna rce(s) Supporting Document(s) [facility] Hip,AP,LAT to include Pelv is eCW1 ([facility]) ID Date Data Source [facility] Femur 08/22/2020 12:00:00 AM EST eCW1 ([facility]) Name Value Range Interpretation Code Description Data Rosanna rce(s) Supporting Document(s) [facility] Femur eCW1 ([facility]) ID Date Data Source UA URINALYSIS 07/09/2020 12:00:00 AM EST eCW1 ([facility]) Name Value Range Interpretation Code Description Data Rosanna rce(s) Supporting Document(s) UA URINALYSIS eCW1 ([facility]) ID Date Data Source [id number] 04/12/2020 05:54:14 PM EDT [facility] Name Value Range Interpretation Code Description Data Rosanna rce(s) Supporting Document(s) Discharge Summary [facility] DRLCSy2fRtMTFwGf04/ENUmzHFAwy9SnONcuILj2GCcsSNSbQ1SjAZJ1rH4kVLV3DVlPNzTyIoLeMSB1 lbm [file] WuFRlgQdMmCx3IAEIFH8TZKb== ID Date Data Source [id number] 04/10/2020 12:40:00 PM EDT [facility] ([facility]) Name Value Range Interpretation Code Description Data Rosanna rce(s) Supporting Document(s) Calcium [Mass/volume] in Serum or Plasma 9.2 [facility] ([facility]) Sodium 139 [facility] Chloride [Moles/volume] in Serum or Plasma 105 [facility] ([facility]) Potassium [Moles/volume] in Serum or Plasma 4.2 [facility] ([facility]) Glucose 104 70-140 [facility] ([facility]) Carbon dioxide, total [Moles/volume] in Serum or Plasma 22 [facility] ([facility]) Glomerular filtration rate/1.73 sq M.pre dicted [Volume Rate/Area] in Serum or Plasma by Creatinine-based formula (MDRD) Laboratory test result [facility] ([facility]) Blood Urea Nitrogen 22 8-23 [facility] ([facility]) Creatinine 1.17 0.70-1.20 [facility] ([facility]) ID Date Data Source [id number] 04/10/2020 11:59:03 AM EDT [facility] Name Value Range Interpretation Code Description Data Rosanna rce(s) Supporting Document(s) [facility] DUESBw2kAtXIUxZjw5GoRmWjAMOvFY5hknk4V4H5rHAqH6FbgBSnj1lzN2JkG8GwNRCdWFGRBL2RdDCq jb2 [file] FuhhABeq8YgtxbfnEBEIyLrtcmrTRg1O6AQfGXjmqNh7289nMWvc/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/Vjuwfm/1VlbKR6Lxi9zekd9 Qq5+LIlBvZ2r01EmpeA2a4exoxDWTEfvJYLkal1SLg4gV4j5w5MmbqmsU9TSc7ibzARKDHLM1xcY7a/7 7gqTfyrdplK1/D4CE4bjK//48vF/vbz9+EQtN8YWe0 efJ2zp8l/9/TXw8l9zvbu2C+JTq77p+di7zz+2XR2UCmfzYU81Sw+U6hyQz224PE1gpWEeAheIgH3/LF sDn//6m/f/+vLNb77++Wsu38fy016+5dQ8L9t30/7dt28/yA0a033+Bf243cTa0admSi50//jpw7uVD3 69/lxJAl6X9XnHWb/98jvv3buONmpzplt+k12ojofc zef/+tmbD5+/e/PQ+OOvX+Trjy+fv/6Ia9hyP6567y3WM8/46rP/+zbV8zs8i0U4jTyu/vOX91+9//o3 zl4003/vPnv5+RDer545wRmL20/37NLfI751tSa5923vRdbT62c/+ZrBT5562T6wYRX+/D97Xdug4m2/ +ezN+/cchNs43I1Ny73qfr+8+/qzX7/66o5up19oCb E5rfR5z/L35r4Wgj4/+e3Hv/Oxp/drbwtk3MSkE6/8At34QmhWl/3Lr9++f/nsqy9/8+gO72jRrExKYc 3439dsd20E/OWm3c26qDj3+ccD06e49nMGM23+eV114arz9h+0ev+ceCz93AcMQ30++fzvMLaKQz/P9N mf/vjvP/z5x+9///Lf//Pl2x/+8Ifv/vzn77/7w89f Pv/ujz98/4eXf/sHGf/2jy9/+pSblg2D4g/y+uRTn58+HrtXU/v3T5y40AJ03g/++Iu/1DtgpOZS0UK/ /Cn7oP8Zj6bg/y/A9X/uBuc/Gn1VTNgpx1Yt/mxOCy38zqI3jel3+nBJU5NE1/FX46F7qA8R80vC8/zA h+///fsHQ0+4Iy73msrg/bu3j/v5za++qEdbfkH40n uH5V8+f3wgPry65ZVZfj2wA/6GHK/fWxr8NvGji7mz3+//+Nd/evnzd3/9/tXZH+/1l6zy8/fAa8qTK9 tt8raAl5/aVi2vfmstN0//8//+h2uO0365N94+r/2+i3/b4dt16x4eg/z+Px7X/sOf/voL776jdG29mH 2veg486Cu//wp31iz2OlFZOa0UMh8lfopqKCxK2mYN dD7+zdV4LJo610z0Q7O92Oa64kaHAwoa9fF1//P9X/720bnvnMon/+XN+0+eJagez9+wl//08+ ve/El9/94dUdnq/Xr390e13435tbdazyE47/eT810YbjksALN/3px0+dY2gme0lhI/IKf633lVgKf8Hp JUbrHB+//93//CHRz5kod4tz9ikh/pOPrqYj+dG//P Uxr37/6WdvPv/lO6uHuDNbgq+/fCxzX3/K1+nzDf3//8jz/5i+xF7Wv/sf37/Iy5/+/XFhmQCb0ZLoFA 7wx3rw+Pi70gDUy+hj12AP9UqsRq/26JE9ZSAU5mTk7jd2SNzcZk77+ZA1xH712kf02X1Yg/v0lQtcmd KhzVIvHT1JSC4nq8ChPdG3GSIht6XrAFilMVi4rTSu IGgiqeQbq9KybaacW6Rdy5BkHiNaGQYpEsMcRgs5BKJmZaB3nNKdIaPcKZCyA3XtWICuKyZ4NxRxYVSL YR1NBYGhrlPqZmWkGJC+YxAaLK5sseycPCMkc1OjMCgmICmqKTWgG5B1zYciVUAgP4TiiT28LJPbM6Xn nbL8IUX0LYDlSuAlPZHgcCYgALShLTO+KoQzRH6tue atFEMqo2TjOKlxCEZ3yG6oMCcVFURLXZxSBHhnFrY5y70lcxLXHCBqANMtNJ5ZkrJymMmcrpFhyWBrJM L6GlNwMTVeJWFjNUZ2MPNDDAGgAYUqJRWkYKCyX7AnvIdwHWoSACCDXOvRPLxjVtPnq1C2ISYomwIHRC JkURTCVVpOZFXUDMR7HRLxASElJS5BsYTxELP1EMeI WZZGWKfXQNbdRiWrv2I3JNFtI0NmDPTgpxTuAJXPZOrcEgfrUN6kkAepqqbpY9IwhTLwRGXVSCLsOXYy ZQBzUCHsH6Dnq5O7N3GqKFqJBKFGUMpIZIxlBeW8a16sgwWOVFIeRGPwCH1+OR7fn1JjOt9XHTNpFJ7u ybk8VS5AfWHoYR3USVcmgbBcB1kfxfSiGpHaPVTIDT 3kY6IqlN77TOK+FmCoYG9bxbq4aeKoXeAmGOLqWNXaEDJfEKhgDCKrVIYiJZVrNHJ3QWF5TWYmTrOmJG XbEvIgVKQsIRCrDUGbsjQWXYXqDMD3ZKVaJzEjBGHxFCIzJBsaVQHuVWC4XNv6JTRbBRIoGY2oCeHzHR MtHPHlXTLlEaR8XpJhOlFQEWWiGFTyYXJyQtBpEKOm KIHwSXkeWHPaRXPlUAe2JYSfMAExXL6nZwGiUNRrMIHbKHMnGSDrOGNpexMTSXBxLOUfIME4DNXdCJPg MJFpLImwEYDgCENqUZR9GHMcUEZvJD0wXvFiAIFjDIR6DjCdOKVkGSRahuYMXXPfQRLhEDL3EGGtUPVb ZFAgCTcrAFXtDKNvPpW6QZPqOJRaGI9yWuRpXMPrWI R5VYOyMFIxZZNdliVYCONqSQOhXEo2PaJbPGWdRLSmZYwpLSEqZWZsLYkqPRLnFSPiWM9cIvStXTEmMF YqAVEiTNRdXILgmkJTOOGtYJCxEKS6FoLeCJVsCQQsUThnANLbNMItZGB1CMJnYCTvCI5uHvVwJHLkYd X3UOGwXFBaBJRvzxKADORqPVWhURKqYHSaEECpPRXp ZFtdUMWaEWDxMgG4GFYyIMBbRI0nEfGfTYShNLA2AVJiNOTwVLJixgKOXBXfSSYhHOLuJBM4OHDjCNTp QWh1qpUemZUwSxj7Ch4SpUnvZXT5Fd8PvmBxXWLuCIKRDs5In477UJEcKDKNVcb+PgpzdGFydHhyZWYK NdU8XZJKEJKNH4F= ID Date Data Source [id number] 04/10/2020 03:08:59 AM EDT [facility] Name Value Range Interpretation Code Description Data Rosanna rce(s) Supporting Document(s) Leukocytes [#/volume] in Blood by Automated count 8.0 10*3/uL 4-10 [facility] Erythrocytes [#/volume] in Blood by Automated count 4.72 10*6/uL 4.6- 6.1 [facility] Hemoglobin [Mass/volume] in Blood 14.5 g/dL 13.5-18 [facility] Hematocrit [Volume Fraction] of Blood by Automated count 42.9 % 4 1-53 [facility] Erythrocyte mean corpuscular volume [Entitic volume] by Auto mated count 90.8 fL 80-96 [facility] Erythrocyte mean corpuscular hemoglobin [Entitic mass] by Automated count 30.7 pg 27-33 [facility] Erythrocyte mean corpuscular hemoglobin concentration [Mass/volume] by Automated count 33.8 g/dL 32.0-[facility] distribution width [Ratio] by Automated count 14.6 % 11.5-14.5 H [facility] Platelets [#/volume] in Blood by Automated count 195 10*3/uL 150-400 [facility] ID Date Data Source [id number] 04/10/2020 03:31:42 AM EDT [facility] Name Value Range Interpretation Code Description Data Rosanna rce(s) Supporting Document(s) Bicarbonate [Moles/volume] in Serum 22 mmol/L 22-29 [facility] Chloride [Moles/volume] in Serum or Plasma 105 mmol/L 98-107 [facility] Creatinine [Mass/volume] in Serum or Plasma 1.17 mg/dL 0.70-1.20 [facility] Glucose [Mass/volume] in Serum or Plasma 104 mg/dL 70-140 [facility] Potassium [Moles/volume] in Serum or Plasma 4.2 mmol/L 3.4-5.1 [facility] Hemolyzed Sodium [Moles/volume] in Serum or Plasma 139 mmol/L 136-145 [facility] Urea nitrogen [Mass/volume] in Serum or Plasma 22 mg/dL 8-23 [facility] Anion gap 3 in Serum or Plasma 12 mmol/L 8-15 [facility] Osmolality of Serum or Plasma by calculation 292 mosm/kg 275-300 [facility] Creatinine/Urea nitrogen [Mass Ratio] in Serum or Plasma 19 [facility] Calcium [Mass/volume] in Serum or Plasma 9.2 mg/dL 8.8-10.2 [facility] Glomerular filtration rate/1.73 sq M pre dicted among non-blacks [Volume Rate/Area] in Serum or Plasma by Creatinine-based formula (MDRD) >6 0 [facility] Glomerular filtration rate/1.73 sq M pre dicted among blacks [Volume Rate/Area] in Serum or Plasma by Creatinine-based formula (MDRD) >60 [facility] ID Date Data Source [id number] 04/10/2020 11:17:06 AM [facility] Name Value Range Interpretation Code Description Data Rosanna rce(s) Supporting Document(s) Creatine kinase [Enzymatic activity/volume] in Serum or Plasma 205 U/L 20-200 H [facility] ID Date Data Source [id number] 04/09/2020 01:17:08 PM [facility] Name Value Range Interpretation Code Description Data Rosanna rce(s) Supporting Document(s) History and Physical [facility] NUEDAg7sLxKMGyQt54/GOSxkGDUpc8YwDYlgTHo1IFocOBSwR1MlLSU5zR6aZJB5AMhONyQxArJmFVVa [facility] [file] AgICAgICAgICAgICAgICAgICAgICAgICAgICAgICAg FIVoVBCtLQZlIZNmVUGbEKEcKELhPNHbZMCoURRbVKHnQHUgLKLgOXGhGRPyPENeWK3RPGDlLFGfRPBi ICAgICAgICAgICAgICAgICAgICAgICAgICAgICAgICAgICAgICAgICAgICAgICAgICAgICAgICAgICAg ICAgICAgICAgICAgICAgICAgICAgICAgICAgICAgIA 0KICAgICAgICAgICAgICAgICAgICAgICAgICAgICAgICAgICAgICAgICAgICAgICAgICAgICAgICAgIC SmTKRgUQKjGDQxUUVgZDYkGJOjODCbQNImYQJuCTQgWRPgGZGtAQYuBM8HLFDtPUYmQDDnYGYjABNkDB AgICAgICAgICAgICAgICAgICAgICAgICAgICAgICAg EXVsAFHoHAMwUESjSFKqNMFzNTPiMZZsVBSsVKObJTUuSIOnBUFuBTBcHLRnIURoLHFgWI1YHASwSJLq ICAgICAgICAgICAgICAgICAgICAgICAgICAgICAgICAgICAgICAgICAgICAgICAgICAgICAgICAgICAg ICAgICAgICAgICAgICAgICAgICAgICAgICAgICAgIC ZiYD7YKCQlNZWpWDHaJPBtVBFgZSIcUEGaZRPeIMBbRLFtBLNmVZLrQHKvBVWcKCXrNCYfUFJbVTTmUZ QeYVNoOYZtHIFgRBIcLPNdHKXhAFQmRSHgWXMoOXHvJDQmDRAzZOImHYIzGO0MYETpIRFxMTVrRYAgDK AgICAgICAgICAgICAgICAgICAgICAgICAgICAgICAg FSKkRYRePVQmYXKgGEHvDDUuAPXfPWNjWFOaAIHpXSLhHWDtJETwKTUjDKBnVGNuPUWpLGFoIX7QZYYv ICAgICAgICAgICAgICAgICAgICAgICAgICAgICAgICAgICAgICAgICAgICAgICAgICAgICAgICAgICAg ICAgICAgICAgICAgICAgICAgICAgICAgICAgICAgIC ViAJPpCI5QIFFzZUXcKMLyCGQfXMPkZNAfWWUmHMZuRFFbWGTyWTGjEYNqQICyRYOaRMMnRJYbZPMiNM EoFPYgVBUmLKPbQAWqMWAoPFJtZTNhQNWvOQKbERNySVQnAQUlQFSxTRVrRYVmLB8HHOVdJDUaDXEqCH AgICAgICAgICAgICAgICAgICAgICAgICAgICAgICAg RFFxEFHsXJViCUUgQFYyEJPuDWPtHRPnQIIpVBZhJLShYPSwXYIfYGFcBZJlEEPqTIPhBQUwIOEjIV4Y JZ55gCKdc9D9MZJcHQ9idwe/Ue7WKVfkqpPmvEOwDG7BOyTfAK1imk1SUtVjCY5pxo7AFPvWEuNoR8L6 jAFaWENxXSKRJhGtS44pKCwmMp43HZdaMXXrNcLxOE m7Cn8QBeXfH4lyRXCbDbV3XVWhZnL4QBDpJzW9DCQhWnSdPVVtPQJuLRWlHZIVPQ0YOjJzN0EoxP98VQ UNCj4+JTrkzoWmBpcIUvPtLZQgo2JoWLc8QY8EZQQvMyqlx0XeEcKnIGKXAZaqUO1GDEC3XWLnRPRvHq 7QEOWkG774djUjOR4FEb5JSaXcMW6jvp8BMfTwLYGq QdbEBnk9XEdfOU6SdOJgUXyJOiVsLfvqF9MlKSAzDU8ktYZuCJHWQEIkdKObDJ1mSn8tYZMaNDR5MrO9 KNGFLQ8EOCFgBHPnjOTqKGVgVZHXHP6VXBzcYSY5BKHbqvJfnXUfLKrlIG4OHOErecPhPgDvQLQEHZz+ Bs8BVI1ck9NhJXqaRsDcYP0afq3XSZlNGuFuC6D4dZ AsF6T4DKpgPo0FBCReFGUsJujfYEMAYVjiZT0GKI9pwzN7HZ6LzXGjHNGvACQljWBhZCk2L45igJKcPD phTQ5XIKY+Pham+Ra6FTXQlQXWnIWCyRdSaDXATXlRrY2WfB0JLn2AyH3MqQP54qHhvtmWkKAabRJ6PUT 0uWZApKBRSGN6UvXHupN9exdZaJBHrUJKXGnYkV91p yEUlOXCgJII3YNWeGe4KYVHiL3OobpRsuKzxkhJtCVFgFDDZQG1NSTkngrMkbDMmyBhrJY75mGjjKH0R Pp0PBgEbLI8krk9ZmYKnYi0OILKmUg8MJDHzFJOsHDByQNA0ZUAuCzRkPHraTIGiQQPjXBS7JOEaYWGx CJ9JUpCkGJWePzIbWIQuXBTcXRMwun0KZQSiYWZlRc emSvFuOQClEJYaWEltFDDxNNQsJCH6ZVPxFZQrMM2EBrIwPHTpGMSrTcyaOOXdTEAkvj4XLBYiFGVbIh N8FfPvIOFxZSGsJRhrANMnSHC6TcXbKAZfMTBpQC3NSdOrVWLyPRV5JMorDLVjOULdqc2GDNRyJRIyDD uqUgXbOEWwVZPbSNngNRCxPYKhZVBgLIBpALAwXJ4C ZmOeLCZcBNQwPLIpWSLtCRMqeu5LWWOyFDGeYqN3NlQkAAMiBWWtVBueORIxQOH0UBZ7DTJaZIPgOX7Z HpWnBZXlLDP9AAIlYFIwTJKtod9DOKEwDBQbMIhkPlQvGGNxUEIrJRmrGUViMKT2MLYsJWUeFSKbWW0H PdJeHDRnJQErZTKmFBTaGIPhzq0PFBOiKIXaVgY0Vp BgNNOkDRHjATrrOTLaIFY2ImV8XOYuQXRuEP1KJsHgCKSmEQq2FeFrFRJhJZCvap8FIRQcWVZgHTE5Ae XiVGKyDAQuOMzqUGHmQIJ6XBl2TCPrNEHbKO9UUjGwZNViEMa3DzMiHIGgZIWaod2PBYRhDLWfCPE2Of PtTEPmTNEsYQubTGHwGRIsBId9VOQqJXZeSB4EMkEs CVQvUjZ9NPTxNPIsQVFbbi0JTODdBAToNKptArFmJRXiUSLxXJriFFHiIXRoUKZ7ERUzRJAlTY9OGrKr ZIVnXhN9BDBgDAPqDUHztl7LTGGnDLMoYto1ZWFmERKpLKJcVKbiMENlUCQyYJRzDULfCURtOK7OCyVc EDZkPwZiGAcnYANrJDNhon0McNPxiOlsky1VMLlCFt 2QaMgiEPAgEMwhXx2zxSAuHwCsUXUXQt2QpbYoCKYbDFZSAOalFECnPFvrPnD1KVV5Bbe7N6NyZSO7YZ T6CICdD9ShNEK6ZSWmFqN9FLYfLSCtTtJgCEvmOTF2Szq4CMPlZvLlWNRpAPViUpX+VK8vNXw+Pg0Kc3 PyvqG0jtKaMJroFcNlWf4RCCGWQ9IBNv== ID Date Data Source [id number] 04/09/2020 11:46:32 AM EDT [facility] Name Value Range Interpretation Code Description Data Rosanna rce(s) Supporting Document(s) Kaolin activated time [Units/volume] in Blood 263 s [facility] ID Date Data Source [id number] 04/09/2020 10:35:40 AM EDT [facility] Name Value Range Interpretation Code Description Data Rosanna rce(s) Supporting Document(s) [facility] RWIMNh9wWeEHFsHr89/IBHxoBEEta6QeWRalCPv0ZXqgESIyE3QfXHX5nW4aZAA1IRjVUlQvLaHgJVFs lbm [file] EJBWE4ZVIm== ID Date Data Source [id number] 04/09/2020 09:54:18 AM EDT [facility] Name Value Range Interpretation Code Description Data Rosanna rce(s) Supporting Document(s) [facility] EUEZOo4gSnMMMzCsl0KhJbDyQUHvFD1lfyb0B4M4nTKmJ7ZdwMFex5daU1RwX8HiEXApCPZUAA8RhEKn jb2 [file] 795d/7658V7D/61zc883v/9/TeC34r7/rnV2+skT8IT31/8vPP3/2Ul26v7z4s3c8//2/f/fCnb//w9t //4+3r7/74x29++OHbb/74j2+/+Pu0109432u//r3Ev/7D25+/d1Wlu7e66Qns+bH1j1+p4o49xy1/uQ HprlbtT3/31B000Ge5oUyp+G7uX42j/OD9+tX/BTi/ kB4w/+c0Tff6aKLU9bzT3+dzI98kyrd6/iuZmJG4E2++orub9JK8ToXv+w/vv/82q74YdnC79yuju/df gOwl4aw/82pS759/JFPoc259Pb97zDqm0bzkb25g1lne/rj71YAYwPYWBIYQ/1Ev//rb7//6T28/fPPX b39U+1hlpXu2b+4//YmPaEoPpqP/tPYN/uw495hg// XbH/70d4w5Va1C10+rX/f+PMW/UfvGfvv+q7c//K/XvX/35+9/Xp2YGvxM9xgQM/bbDz/18Nis05Peng Bf3+Y/e31R/6g0eHJuF+S8QY5u+fqGA/aRyI+qNoLefnpbG/vNR+8/+vD2zf/59i//+t57XwaJN//lky 8+urI0gu8+aG//8cO//sNP/r0fxK+/+eOPHnD+CP30 m//1+2/+8t033//k/K1q1+9+Aj5Kev/cane splicer//p4+aI1mfQl+nJjc7z525eA/SFib9pN4NKIVr//f2/f//d 71/16AJwNjcOdL5k98mkmt04n3+++kVsPn2qim/+/T/++u9/+u6b/6gbhYZZne2689+/++TLKu7lcfuz vv//X+2CSB4pUnw/883/+VZP4r83s754vmmk3yzZno v9xv2VLe/vfvHhNTrcg9+leKJ5kts+Ne6/GmfS+s439n6DK81Sdype/7jd3ZfNd4sw5/7/NQhaF6QPCD 1wv5LoXDQnMfUaZD1odqyoNYFbFY2wzyb7E0KyuWthFPuGYYMgXi7lpESuZA6CZVW0WIsoMCSiXLHfT1 NopW6zN59baYSjSoNgKNYFDV1ZqbS1SQP6POC4XOVk VrWqDUTiRS13SLSmLHJFUn7xzySdNrvPQpZoOQ5wyiu3Q7P7yJGfZ565cIucdjNvFM9Sv4SpaZHxRJ8J nUNziBXnYYVcRLLqM9hcv6RkPJtlELOZEy4qnxCfZscYDmKaAZ6xtzj1R0Y6hHvdwaDqVWKVVXiyFjam YJ0jlUiardsrQ9CyrJUlKKWtK8IeDXVnq16WXODbFA cYGrLfZiGhDIGfYIm6SJawKxDxWRTeXUVmOZVdEU4EtEKjKQSrRCASMEquSuczRBTroC0evAWBh5JmVX GHAhogK7uLEFjKKQIhMYzuHYu0PTQyX9YhuuQxuGQvDNXVNVrkGexdTTUcuJ5jgWxmV9HpJVN4z5KlKI 3NP1FnNGFtNQEUFVS6l8ZxUKJnpmnlesezZkTtVJWi DTWnQRDzOU7Zye7lvIKbhtKhYBXSIGogJlkrFS8zmXlhngwfU5KkyAWqDFQ+WaZiVR7dzi8+CjEgMCBv Ako2QIWlFVrtIELoXSBeCRWsR4ggYGPuSvCmFXBzSmNnXV7Np3GuiOXbBh6tqwHqNxyWhVYbIweaPIHk WOVaKZDoYxHZWETbUVAmXUUnKCN8QGKcROKqDEmsDY UvBQT9CqJoTLLsRYJtME4bWfFwFWPyKhS5VeRfPSGiJMRopcAUVSKqBKZ0TNlaECByLLAaLXJePKhySZ CeOBEeGRKgUDE2TJF5NWRqKiZhAXWpESRkEZBdSRRlRAEyitTQFMPgVTOrFUE9YWHqCJCxFSMlLTbnYA DbFKXoNTseQVVbZRYdND0rSpZjCMEvRLFfIQdaKUCg TOGahdGTLUFhDBZaZFKeDEZzEQNqIJWlRPypUYIlMUHzQFOfTPWdHPCcUQ4qIcUqNEWcNIG6BAToMCJx FEKyihSROVRyUMIrGXv7IRHyHGVzHEVgNRetRBPlJHUwSBS9XKTqMSUcML8lKoTxYHFtYNZ6ZiHpFWTm XWCbtjUBXFDpDUPdZBQ8RiYzXTYsORUwTUamDRTeSZ PoBKraLQPeAHGhJW5tUjIpTGHfNXNrNFbvZPMfWXKppoGYJOAnSEKlVAMmTrRyCQNbXSPpEHjvAJIgRI T7FfM6RBBsLGJxQN7jHfWsRIAmJPY0ZXkdUFGpKILoliGKXUDbZVSvUQskECEsDQEdOWHuFVclWYFlVM CwXNG5LQEeVLAqJY6sElMjETNyAMOqKEUlGeY2WpWa UrJWsXPjwKychbl3PDrpG2a7ZBSrTEuoTD9fcdDyRNCwRsquEv0llML1AHYiMinNWl2Ho1LrrlT1zoYv QsV6XmX8JuDxUY3M ID Date Data Source [id number] 04/09/2020 08:48:34 AM [facility] Name Value Range Interpretation Code Description Data Rosanna rce(s) Supporting Document(s) Heparin unfractionated [Units/volume] in Platelet poor plasma by [facility]37 [facility] [id number] 04/09/2020 01:56:24 AM [facility] Name Value Range Interpretation Code Description Data Rosanna rce(s) Supporting Document(s) Heparin unfractionated [Units/volume] in Platelet poor plasma by Chromogenic method 0.45 U/ml [facility] ID Date Data Source [id number] 04/09/2020 02:04:11 AM [facility] Name Value Range Interpretation Code Description Data Rosanna rce(s) Supporting Document(s) Bicarbonate [Moles/volume] in Serum 21 mmol/L 22-29 L [facility] Chloride [Moles/volume] in Serum or Plasma 103 mmol/L 98-107 [facility] Creatinine [Mass/volume] in Serum or Plasma 1.04 mg/dL 0.70-1.20 [facility] Glucose [Mass/volume] in Serum or Plasma 126 mg/dL 70-140 [facility] Potassium [Moles/volume] in Serum or Plasma 3.8 mmol/L 3.4-5.1 [facility] Sodium [Moles/volume] in Serum or Plasma 136 mmol/L 136-145 [facility] Urea nitrogen [Mass/volume] in Serum or Plasma 19 mg/dL 8-23 [facility] Anion gap 3 in Serum or Plasma 12 mmol/L 8-15 [facility] Osmolality of Serum or Plasma by calculation 286 mosm/kg 275-300 [facility] Creatinine/Urea nitrogen [Mass Ratio] in Serum or Plasma 18 [facility] Calcium [Mass/volume] in Serum or Plasma 8.7 mg/dL 8.8-10.2 [facility] Glomerular filtration rate/1.73 sq M pre dicted among non-blacks [Volume Rate/Area] in Serum or Plasma by Creatinine-based formula (MDRD) >6 0 [facility] Glomerular filtration rate/1.73 sq M pre dicted among blacks [Volume Rate/Area] in Serum or Plasma by Creatinine-based formula (MDRD) >60 [facility] ID Date Data Source [id number] 04/09/2020 05:05:57 AM [facility] Value Range Interpretation Code Description Data Rosanna rce(s) Supporting Document(s) Prothrombin time (PT) 14.0 s 12.5-14.9 [facility] INR in Platelet poor plasma by Coagulation assay 1.06 [facility] Routine intensity oral anticoagulation I NR is typically 2.0-3.0. Target INR must be clinically individualized. ID Date Data Source [id number] [facility] Description Data Rosanna rce(s) Supporting Document(s) Heparin unfractionated [Units/volume] in Platelet poor plasma by Chromogenic method 0.56 U/ml [facility] ID Date Data Source [id number] 04/08/2020 07:06:35 AM [facility] Value Range Interpretation Code Description Data Rosanna rce(s) Supporting Document(s) Leukocytes [#/volume] in Blood by Automated count 7.7 10*3/uL 4-10 [facility] Erythrocytes [#/volume] in Blood by Automated count 4.91 10*6/uL 4.6- 6.1 [facility] Hemoglobin [Mass/volume] in Blood 15.0 g/dL 13.5-18 [facility] Hematocrit [Volume Fraction] of Blood by Automated count 44.3 % 4 1-53 [facility] Erythrocyte mean corpuscular volume [Entitic volume] by Auto mated count 90.3 fL 80-96 [facility] Erythrocyte mean corpuscular hemoglobin [Entitic mass] by Automated count 30.6 pg 27-33 [facility] Erythrocyte mean corpuscular hemoglobin concentration [Mass/volume] by Automated count 33.9 g/dL 32.0-36.0 [facility] Erythrocyte distribution width [Ratio] by Automated count 14.3 % 11.5-14.5 [facility] Platelets [#/volume] in Blood by Automated count 206 10*3/uL 150-400 [facility] ID Date Data Source [id number] 04/08/2020 07:19:15 AM [facility] Value Range Interpretation Code Description Data Rosanna rce(s) Supporting Document(s) Prothrombin time (PT) 13.0 s 12.5-14.9 [facility] INR in Platelet poor plasma by Coagulation assay 0.97 [facility] Routine intensity oral anticoagulation I NR is typically 2.0-3.0. Target INR must be clinically individualized. ID Date Data Source [id number] 04/08/2020 07:37:02 AM [facility] Name Value Range Interpretation Code Description Data Rosanna rce(s) Supporting Document(s) Heparin unfractionated [Units/volume] in Platelet poor plasma by [facility]ogenic [facility] [id number] 04/08/2020 09:18:37 AM [facility] Name Value Range Interpretation Code Description Data Rosanna rce(s) Supporting Document(s) Bicarbonate [Moles/volume] in Serum 22 mmol/L 22-29 [facility] Chloride [Moles/volume] in Serum or Plasma 102 mmol/L 98-107 [facility] Creatinine [Mass/volume] in Serum or Plasma 1.07 mg/dL 0.70-1.20 [facility] Glucose [Mass/volume] in Serum or Plasma 117 mg/dL 70-140 [facility] Potassium [Moles/volume] in Serum or Plasma 4.1 mmol/L 3.4-5.1 [facility] Sodium [Moles/volume] in Serum or Plasma 135 mmol/L 136-145 L [facility] Urea nitrogen [Mass/volume] in Serum or Plasma 17 mg/dL 8-23 [facility] Anion gap 3 in Serum or Plasma 11 mmol/L 8-15 [facility] Osmolality of Serum or Plasma by calculation 283 mosm/kg 275-300 [facility] Creatinine/Urea nitrogen [Mass Ratio] in Serum or Plasma 16 [facility] Calcium [Mass/volume] in Serum or Plasma 8.8 mg/dL 8.8-10.2 [facility] Glomerular filtration rate/1.73 sq M pre dicted among non-blacks [Volume Rate/Area] in Serum or Plasma by Creatinine-based formula (MDRD) >6 0 [facility] Glomerular filtration rate/1.73 sq M pre dicted among blacks [Volume Rate/Area] in Serum or Plasma by Creatinine-based formula (MDRD) >60 [facility] ID Date Data Source [id number] 04/08/2020 09:18:37 AM [facility] Value Range Interpretation Code Description Data Rosanna rce(s) Supporting Document(s) Magnesium [Mass/volume] in Serum or Plasma 1.9 mg/dL 1.6-2.4 [facility] ID Date Data Source [id number] 04/08/2020 09:18:37 AM [facility] Value Range Interpretation Code Description Data Rosanna rce(s) Supporting Document(s) Troponin T.cardiac [Mass/volume] in Serum or Plasma 0.25 ng/mL <0.01 [facility] No Significant Change since last result called ID Date Data Source [id number] 04/07/2020 07:21:40 PM [facility] Value Range Interpretation Code Description Data Rosanna rce(s) Supporting Document(s) Heparin unfractionated [Units/volume] in Platelet poor plasma by Chromogenic method 0.25 U/ml [facility] ID Date Data Source [id number] 04/07/2020 07:55:53 PM [facility] Value Range Interpretation Code Description Data Rosanna rce(s) Supporting Document(s) Troponin T.cardiac [Mass/volume] in Serum or Plasma 0.28 ng/mL <0.01 [facility] No Significant Change since last result called ID Date Data Source [id number] 04/07/2020 04:49:04 PM [facility] Value Range Interpretation Code Description Data Rosanna rce(s) Supporting Document(s) History and Physical [facility] TPMQEh2fZeKZIdDx69/OHCnqHFUmw4BrXBygGNk5VWfyLQFpX7GsTXY3qN8iVNV7PXwBYmByXvAiEUIr lbm [file] AgICAgICAgICAgICAgICAgICAgICAgICAgICAgICAgICAgICAgICAgICAgICAgICAgICAgICAgICAgIC AgICAgICAgICAgICAgICAgICAgDQogICAgICAgICAgICAgICAgICAgICAgICAgICAgICAgICAgICAgIC AgICAgICAgICAgICAgICAgICAgICAgICAgICAgICAg ICAgICAgICAgICAgICAgICAgICAgICAgICAgICAgDQogICAgICAgICAgICAgICAgICAgICAgICAgICAg ICAgICAgICAgICAgICAgICAgICAgICAgICAgICAgICAgICAgICAgICAgICAgICAgICAgICAgICAgICAg ICAgICAgICAgICAgDQogICAgICAgICAgICAgICAgIC AgICAgICAgICAgICAgICAgICAgICAgICAgICAgICAgICAgICAgICAgICAgICAgICAgICAgICAgICAgIC AgICAgICAgICAgICAgICAgICAgICAgDQogICAgICAgICAgICAgICAgICAgICAgICAgICAgICAgICAgIC AgICAgICAgICAgICAgICAgICAgICAgICAgICAgICAg ICAgICAgICAgICAgICAgICAgICAgICAgICAgICAgICAgDQogICAgICAgICAgICAgICAgICAgICAgICAg ICAgICAgICAgICAgICAgICAgICAgICAgICAgICAgICAgICAgICAgICAgICAgICAgICAgICAgICAgICAg ICAgICAgICAgICAgICAgDQogICAgICAgICAgICAgIC AgICAgICAgICAgICAgICAgICAgICAgICAgICAgICAgICAgICAgICAgICAgICAgICAgICAgICAgICAgIC AgICAgICAgICAgICAgICAgICAgICAgICAgDQogICAgICAgICAgICAgICAgICAgICAgICAgICAgICAgIC AgICAgICAgICAgICAgICAgICAgICAgICAgICAgICAg ICAgICAgICAgICAgICAgICAgICAgICAgICAgICAgICAgICAgDQogICAgICAgICAgICAgICAgICAgICAg ICAgICAgICAgICAgICAgICAgICAgICAgICAgICAgICAgICAgICAgICAgICAgICAgICAgICAgICAgICAg ICAgICAgICAgICAgICAgICAgDQogICAgICAgICAgIC AgICAgICAgICAgICAgICAgICAgICAgICAgICAgICAgICAgICAgICAgICAgICAgICAgICAgICAgICAgIC YoFYBfMNYwCESjUXFzVBTpICNhFALcCWKeEYExFVc1N2bxKUKzOVZxFJ5oTPp1Bk0+FObGPdUwXZL0rp SrhI4IXD0xf2JgXHlkDWNjm4OyCOo9GO7HMZYuRMsu NO5JETqyps5SAGQhSPDiyMFDt1zgWkIlGPT5XFXyVfwcPI0OBLSwO8cdjxAiEVVkXKSVFAxmZNLBBRfk HSANARSyAQKoEvXeYTiwWM3Ni5YkpTQ2EIs+Ri1LHT1sc4YzJOabZaWjCQ8ffj6NPUdPQoZcK4MotdY2 KLStHOIyEt8OKHYbGLQacYEdJoViWERRMeWeW6QjdW 12ZMOZUp3+REkcdbEuQxyDEnLdRITus6JtBEt8AZ8SSWGtCOq7sOXlYNNVHKZ0PUPxN9plMIckDUQThm 82cOLbIIKWIlGnoBBnOF6cBR9lEPKjRJCwIyR2GADMYT3RDVQpYBKqqVDaAUVuARWTTG6HDLpsPFS5MJ QgheLfnJFjPGklQX3ARIOoacUgFhHfGPVCULx+Pg0K FZ7on5EfSJamBoFtXO5xoe3MDOjDQwCcV5B1kXVlL2Pgwx21VF8VcYX7vGSfQP6HtQ1zQO0Bb4OaXMQo AhDhNIKjGMGjSRSlCPFhHsDsVK8RFLKuLgGjaKLhDHQcRJl1MLU9WDS7JiIeWL5TIRUeUUX7ZH8TXO2W RprlN6BESWqehWYsaoxkG6b6cx9tiMhjlv6vo23dI8 ksIEOaxf4qB5F/CcmoAU0oKnFdPUFgJUC8qUj3dRuxuYsgLoOKdOP2MzUgIXIGGUzwBFBnfXstcYwtTZ p4AXJdRwDqhX1wEHYiF9RayNR1VBidRq1bFCy+Hl4HHV0mq8LoTLhvXNZrVQ2vmi4INPcSQeMfI3Z5mC TdV0R7GLarKu8TQYUlMDOhJbRgWZVQLIiaGY3UJZ1o xqT3DA1FwKNyIAKwIXJgwLAaDSr2T63xfCMnRDprOF8ESRG+Pham+Kh4CRUGlDHAzEQUvGjGnZPYJYhYa I3NxG7ZJc2PvV9CmHS07aXqszpUqIErjGW8NLP2uUHWlGMIXVZ8TiITjoX4bhsJiLrRdQBBFJlAnE24r eYCuFQKwRQVzEQMtXv2RAUYqK7VlgmCmtFtxqwMdIS MbFTKURQ9VFRnuakPrfSSrhEokCV80kPvgPL3RUi1ZWoVrRR5xqs2UmVBaTw7VPRPaUZ8IZFYxQYBuLT BpUUG9YBWnHzShIEwmXWQcDENuULL7TXMgWWElZM5JYcCkULDjKrJ2CMYyIUBeKDFkzn6YFZIqTLNeUj KbIxCuFREtWMYhXDntDCTuKKKuPBN4FCAfDLWuNP9S RuCnIQBnUDAaWSLfLINfUOXtaf4LQLTiMUWuQFH6ISCiRKHgSUVvFWiwRXLbIPD9SGltNJRtPNJvRY9Z JmTfVCSjBAccVYNpXTKmPGNgfq7NZRWrFBQdJUl2YgCgHGQkBUTfMSpuUKWhQHBhJPO2ETDxEAQhZT4P RnWvLASlHSZ2HCLgMJLdHEBtuo3DZXZsBQZcRopkWd CpUXOnDGNsZHaxYYScRRRhIHesTRTrAECzWK1HCkBtVQOcJWY2OMSiAVPwOAUftl3FSJTbLQVxYGF4IT RfHNZxRVLtXQjdPNQzQHK4HxIrGSVvZWUkVY9BRpTcOVMyFACsNIFkDKJaSBGthy5ZSDXbZCWrTEQ5QM GxJHIbUVOnNDxsZCCtEJM1ZezlMRZjOVNqRP9EKaLw URWfDIO8UDMpIQZgDAJlgo6MJBDnOFOhFgqrSMXpPEApUVQrVTquMHGiJNB2SJQpHBFbNDWfEJ5DRgOm NPXfLtd9QMtvFYHwELRwkr1VLKHiERHqSAcgYYCnQTXlCSZoBQloADDsVDP0TNI8VFFbOAMuHY0FEdTf ONLnRgsqWyMxUTXeTXFbjo1TXCTnYGYyLFLjMYZqQF FbPKWzIPuvCLReKYWhAnIzGPZbRPOsYY7DCkCcAGWhBeP8WOYxHOBcQWFqcx7TADPnFDTfHGGuNDUfBR LjIFZrUAklMVGyKXMqCYWbHTGbXPNoHI7MTbRpGMIqDgG2RJmwVZUeJKGhwc1TXYFyTBTjQzQ3QAHdPP KqZVEsTJvbJGXwBTRjSFq6HKNzFCOiJW9MPzMxCTel YXSUJxc0ALikO4z6SZQsAH7UN8Dgl6YbSoHkRHBVNMlwVE1mxiZqIBKaCc0LH3iPWso5DYDeYUQyQ8Ub TKQhWfh5VYA1SHD2Sbz7HjOrDDAeXw5oYYT5LrWdYvIaPoG7DvUiJISsLcfrIgNiJOjsVMIgJRRhEdUl JE1IAv8IEpX1PLN4gMKuZs7BObEhTXqXXpKjJT4BFHb= ID Date Data Source [id number] 04/07/2020 01:02:00 PM EDT [facility] ([facility]) Name Value Range Interpretation Code Description Data Rosanna rce(s) Supporting Document(s) Triglycerides 156 [facility] ([facility]) Cholesterol Laboratory test result 120-200 [facility] ([facility]) Cholesterol in LDL [Mass/volume] in Serum or Plasma by calculation 80 [facility] ([facility]iology [facility]) Chol/HDL Ratio [facility] HDL 38 40-60 [facility]) ID Date Data Source [id number] 04/07/2020 01:02:00 PM EDT [facility] Name Value Range Interpretation Code Description Data Rosanna rce(s) Supporting Document(s) Carbon dioxide, total [Moles/volume] in Serum or Plasma 24 [facility] ([facility]) Chloride [Moles/volume] in Serum or Plasma 102 [facility] ([facility]) Calcium [Mass/volume] in Serum or Plasma 8.6 [facility] ([facility]) Sodium 135 [facility] ([facility]) Blood Urea Nitrogen 15 5-21 [facility] (Ca [facility]) Potassium [Moles/volume] in Serum or Plasma 4.1 [facility] ([facility]) Glucose 114 70-100 [facility] ([facility]iology [facility]) Creatinine 1.01 0.6-1.5 [facility] ([facility]) Glomerular filtration rate/1.73 sq M.pre dicted [Volume Rate/Area] in Serum or Plasma by Creatinine-based formula (MDRD) Laboratory test result [facility] (Cardiology [facility]) ID Date Data Source [id number] 04/07/2020 01:02:00 PM EDT [facility] ([facility]) Name Value Range Interpretation Code Description Data Rosanna rce(s) Supporting Document(s) White Blood Count 5.5 4.3-10.9 [facility] (Card i[facility]) Hemoglobin 14.3 13.0-17.0 [facility] ([facility]) Red Blood Count Laboratory test result 4.70-6.20 [facility] (Cardiology [facility]) Platelets 181 130-400 [facility] ([facility]iology [facility]) Hematocrit 42.6 39.0-50.0 [facility] ([facility]) ID Date Data Source [id number] 04/07/2020 02:36:51 PM EDT [facility] Name Value Range Interpretation Code Description Data Rosanna rce(s) Supporting Document(s) Cholesterol [Mass/volume] in Serum or Plasma 150 mg/dL <200 [facility] Triglyceride [Mass/volume] in Serum or Plasma 156 mg/dL <150 H [facility] Cholesterol in HDL [Mass/volume] in Serum or Plasma 38 mg/dL >40 L [facility] Cholesterol in LDL [Mass/volume] in Serum or Plasma by calcu lation 80 mg/dL <100 [facility] Cholesterol in VLDL [Mass/volume] in Serum or Plasma by calc ulation 31 mg/dl 16-42 [facility] Cholesterol non HDL [Mass/volume] in Serum or Plasma 111 mg/dL <130 [facility] ID Date Data Source [id number] 04/07/2020 02:36:51 PM [facility] Name Value Range Interpretation Code Description Data Rosanna rce(s) Supporting Document(s) Magnesium [Mass/volume] in Serum or Plasma 1.9 mg/dL 1.6-2.4 [facility] ID Date Data Source [id number] 04/07/2020 02:36:51 PM [facility] Value Range Interpretation Code Description Data Rosanna rce(s) Supporting Document(s) Troponin T.cardiac [Mass/volume] in Serum or Plasma 0.35 ng/mL <0.01 [facility] Results called to and read back by ORTEGA VACA RN [phone] [id number] ID Date Data Source [id number] 04/07/2020 02:36:51 PM [facility] Value Range Interpretation Code Description Data Rosanna rce(s) Supporting Document(s) Bicarbonate [Moles/volume] in Serum 24 mmol/L 22-29 [facility] Chloride [Moles/volume] in Serum or Plasma 102 mmol/L 98-107 [facility] Creatinine [Mass/volume] in Serum or Plasma 1.01 mg/dL 0.70-1.20 [facility] Glucose [Mass/volume] in Serum or Plasma 114 mg/dL 70-140 [facility] Potassium [Moles/volume] in Serum or Plasma 4.1 mmol/L 3.4-5.1 [facility] Hemolyzed Sodium [Moles/volume] in Serum or Plasma 135 mmol/L 136-145 L [facility] Urea nitrogen [Mass/volume] in Serum or Plasma 15 mg/dL 8-23 [facility] Anion gap 3 in Serum or Plasma 9 mmol/L 8-15 [facility] Osmolality of Serum or Plasma by calculation 282 mosm/kg 275-300 [facility] Creatinine/Urea nitrogen [Mass Ratio] in Serum or Plasma 15 [facility] Calcium [Mass/volume] in Serum or Plasma 8.6 mg/dL 8.8-10.2 L [facility] Glomerular filtration rate/1.73 sq M pre dicted among non-blacks [Volume Rate/Area] in Serum or Plasma by Creatinine-based formula (MDRD) >6 0 [facility] Glomerular filtration rate/1.73 sq M pre dicted among blacks [Volume Rate/Area] in Serum or Plasma by Creatinine-based formula (MDRD) >60 [facility] ID Date Data Source [id number] 04/07/2020 02:37:15 PM [facility] Value Range Interpretation Code Description Data Rosanna rce(s) Supporting Document(s) Prothrombin time (PT) 13.1 s 12.5-14.9 [facility] TEST ADDED AT UNIT'S REQUEST INR in Platelet poor plasma by Coagulation assay 0.99 [facility] Routine intensity oral anticoagulation I NR is typically 2.0-3.0. Target INR must be clinically individualized.TEST ADDED AT UNIT'S REQUEST ID Date Data Source [id number] 04/07/2020 02:37:15 PM [facility] Value Range Interpretation Code Description Data Rosanna rce(s) Supporting Document(s) Heparin unfractionated [Units/volume] in Platelet poor plasma by Chromogenic method [facility] ConfirmedTEST ADDED AT UNIT'S REQUEST ID Date Data Source [id number] 04/07/2020 02:48:24 PM [facility] Value Range Interpretation Code Description Data Rosanna rce(s) Supporting Document(s) Leukocytes [#/volume] in Blood by Automated count 5.5 10*3/uL 4-10 [facility] Erythrocytes [#/volume] in Blood by Automated count 4.67 10*6/uL 4.6- 6.1 [facility] Hemoglobin [Mass/volume] in Blood 14.3 g/dL 13.5-18 [facility] Hematocrit [Volume Fraction] of Blood by Automated count 42.6 % 4 1-53 [facility] Erythrocyte mean corpuscular volume [Entitic volume] by Auto mated count 91.3 fL 80-96 [facility] Erythrocyte mean corpuscular hemoglobin [Entitic mass] by Automated count 30.6 pg 27-33 [facility] Erythrocyte mean corpuscular hemoglobin concentration [Mass/volume] by Automated count 33.5 g/dL 32.0-36.0 [facility] distribution width [Ratio] by Automated count 14.1 % 11.5-14.5 [facility] Platelets [#/volume] in Blood by Automated count 181 10*3/uL 150-400 [facility] ID Date Data Source [id number] 04/07/2020 10:56:11 AM EDT [facility] Name Value Range Interpretation Code Description Data Rosanna rce(s) Supporting Document(s) Progress Note [facility] XDDYCq0nDoCCRpCo06/VBSrqQLRox2DaSYerKCg5RPfuMFKcJ1OmSKQ0hS2pCPS9YZyCPqLeRfWkLDSw lbm [file] ICAgICAgICAgICAgICAgICAgICAgICAgICAgICAgICAgICAgICAgICAgICAgICAgICAgICAgICAgICAg ICAgICAgICAgICAgICAgICAgICAgICAgICAgICAgDQogICAgICAgICAgICAgICAgICAgICAgICAgICAg ICAgICAgICAgICAgICAgICAgICAgICAgICAgICAgIC AgICAgICAgICAgICAgICAgICAgICAgICAgICAgICAgICAgICAgICAgDQogICAgICAgICAgICAgICAgIC AgICAgICAgICAgICAgICAgICAgICAgICAgICAgICAgICAgICAgICAgICAgICAgICAgICAgICAgICAgIC AgICAgICAgICAgICAgICAgICAgICAgDQogICAgICAg ICAgICAgICAgICAgICAgICAgICAgICAgICAgICAgICAgICAgICAgICAgICAgICAgICAgICAgICAgICAg ICAgICAgICAgICAgICAgICAgICAgICAgICAgICAgICAgDQogICAgICAgICAgICAgICAgICAgICAgICAg ICAgICAgICAgICAgICAgICAgICAgICAgICAgICAgIC AgICAgICAgICAgICAgICAgICAgICAgICAgICAgICAgICAgICAgICAgICAgDQogICAgICAgICAgICAgIC AgICAgICAgICAgICAgICAgICAgICAgICAgICAgICAgICAgICAgICAgICAgICAgICAgICAgICAgICAgIC AgICAgICAgICAgICAgICAgICAgICAgICAgDQogICAg ICAgICAgICAgICAgICAgICAgICAgICAgICAgICAgICAgICAgICAgICAgICAgICAgICAgICAgICAgICAg ICAgICAgICAgICAgICAgICAgICAgICAgICAgICAgICAgICAgDQogICAgICAgICAgICAgICAgICAgICAg ICAgICAgICAgICAgICAgICAgICAgICAgICAgICAgIC AgICAgICAgICAgICAgICAgICAgICAgICAgICAgICAgICAgICAgICAgICAgICAgDQogICAgICAgICAgIC AgICAgICAgICAgICAgICAgICAgICAgICAgICAgICAgICAgICAgICAgICAgICAgICAgICAgICAgICAgIC AgICAgICAgICAgICAgICAgICAgICAgICAgICAgDQog ICAgICAgICAgICAgICAgICAgICAgICAgICAgICAgICAgICAgICAgICAgICAgICAgICAgICAgICAgICAg OIEbRZDkQRCoMSWoQINgLZNuMFJbJTGuXKVgIVSyOWEoVQHzRVHkZZb5P5yfRVUjVBXoEU7pTXb2Vs3+ VXjGGmByWBE3fsSgbB3EZH5qh9XkWJgaTMTok3EjRC p0YY2BVCOrXEjzEK8SENydfn7FCCOeLFYvaSTYe6wrKxJjFNW5TIHgAqynVT9WHGUdO6gfeeFnNWRkYW IKCE4NLeZsQ1GigT43BGPUDd0+ACqmfqSzQimGSgE3LUNtu8GgFBu7AE8HYCFqQqyei1IuKDUmJKVGJV caIN8GVSB3DZD7CXGzUq8YNLDnI738msMePK7UGp6K WgLhIS0fsf0SBCKaYVXpNehOZxd5PNhhLS6SxMYlVFmDty8gdiGrhiRLz7HvpsBrwCCKUYGww3JuGDIE JMXxrNSqWZRNIkFxmABvTW9aHZ7oSPXdMFEwCxF6FJKOWD6CUGErDYRqoTKnUAXyFKAPBZ5DKDtcGIN6 EQXxkuNaiEAbJWefEU2XRTNejmKlRXQeZZUOKHs+Pg 4USO3of7UhZJhjCqEjHZ1cva0MCSwTIuYwY4E7iNDwD4E3ALciNk6RNOVeVFSyWXBnXJHZBDoeFM5TCI 1opvZ2PL0VaHRfZATgQNJonBGcIJu1D78muVUeCUkhZX3CLWS+Pham+Zs7LBCTyFMBqLVLdYaElRYKFMy ZqL5FfM1SIv5AcN6HvVV43oHgqjeHgBUzoSQ5FZN8s RRJcMMEGUR4TeXGteI1cfaOpGQHbOUMUSrNsH37oiJAwJBOfMQKkLGXyTr0QPBIcG3WutaXnhEuedqGn XHYhMXQADP2LCOiyvtKoeKZeqWwqTZ48mEyxYQ5UOw1AWvRiNG0jcs9KrVSrIn7EENUkTb9JAEOdURSw JMObPQX9LJYwRyXvIOayMTCqAPLrYBF9OCOkMLEzAN 6JWoKmDQHvAZF5GEGzRQOiKFKgsm8PSIJeIMZqKnXgUxYyVHUvBWOxHZfuLOVjWMHuFIF7JDZdNFPaBD 1PFhBsNRYgRIO9JmJlJSJkSGHxwk9SNHUaLFGrPWg3EgJlHZWeRFBmSFegKSNuRESwQjN6YWVdBFNlKA 6PYzJmZMReXHO6PcXhZKIoCDYbmg6VBBDrFGKjQpJg UsMsKCRpBLSzBQrwHPRsLJP7JQgsPBPyMQPaYZ0YXuSjYTKfIUFwMyBgWZIvUAOxlk5RWCOlVEHrGBQ3 CHOjUHKzZTCtBDcvZSLlAWR6OWSmSQYzOPHzSD1YXsMgTIZgZXRrOFIoFSEsSCSlth8OAVIcXYCfUjZ5 RwJbQFRqECGyBIxlDHDhWRC3SXX0NBIyRQSzRB6BEa QkPPopAVUOTrl2IAbhK1q4BBFhPw6YT3Hax8FvTBWwISAEGRhqSD2dklIdBYJvZz7ND5kOTpdpNiE6Cu H7EAKtTISfSJW7XHo7GOPrVMPnBmQmSyZ1Ni8cOXBuDkVfTcM2LtAaHsR4XOG8UCIzNQYiTAS7XtP0WF D4QfBxEO0MNv5AEoE1IGO9cBLpWa7QDyd4DA6VRILDC6HFCt== ID Date Data Source [id number] 04/07/2020 09:02:00 AM EDT [facility] Name Value Range Interpretation Code Description Data Rosanna rce(s) Supporting Document(s) Troponin I 0.000-0.056 PH [facility] tavo VÁSQUEZ RN read back critical information 04/07/20 0901 LAB.TEA ID Date Data Source [id number] 04/07/2020 02:48:00 AM EDT [facility] Name Value Range Interpretation Code Description Data Rosanna rce(s) Supporting Document(s) Respiratory specimen severe acute respir atory syndrome coronavirus 2 (SARS-CoV-2) RNA [facility] This lab was ordered by [facility] and reported by . ID Date Data Source [id number] 04/07/2020 02:47:00 AM EDT [facility] First test? YESEmployed in healthcare? NOSymptomatic per CDC? NOIf yes date of onset? 04/07/20Hospitalized? NOICU? NOResident in congregated care? ex long-term, ARC NO? NO Name Value Range Interpretation Code Description Data Rosanna rce(s) Supporting Document(s) SARS-CoV-2 RNA Negative Normal (applies to non-numeric r esults) [facility] Negative results should be treated as pr esumptive and, if inconsistent with clinical signs and symptoms or necessary for patient management, should be tested with different authorized or cleared molecular tests. Negative results do not preclude SARS-CoV-2 infection and should not be used as the sole basis for patient management decisions. Negative results should be considered in the context of a patient???s recent exposures, history and the presence of clinical signs and symptoms consistent with COVID-19. This test has not been FDA cleared or approved; this test has been authorized by FDA under an Emergency Use Authorization for use by laboratories certified under the Clinical Laboratory Improvement Amendments of 1988 (CLIA), 42 U.S.C. ???263a, to perform moderate complexity/high complexity tests and at the Point of Care (POC), i.e., in patient care settings operating under a CLIA Certificate of Waiver, Certificate of Compliance, or Certificate of Accreditation. Factsheets for healthcare providers: https://www.fda.gov/media/317769/download Factsheets for patients: https://www.fda.gov/media/777560/download THIS IS A STATE REPORTABLE COMMUNICABLE DISEASE. Manual entry verified by Veronica Mcgowan 04/07/20 0245 ID Date Data Source [id number] 04/07/2020 02:00:00 AM T [facility] Name Value Range Interpretation Code Description Data Rosanna rce(s) Supporting Document(s) Troponin I 0.000-0.056 PH [facility] tavo MUHAMMAD RN read back critical informati on 04/07/20 0158 LAB.NOTMA ID Date Data Source [id number] 04/07/2020 02:00:00 AM [facility] Name Value Range Interpretation Code Description Data Rosanna rce(s) Supporting Document(s) Lipase 119 U/L 73-393 Normal (applies to non-numeric resul ts) [facility] ID Date Data Source [id number] 04/07/2020 02:00:00 AM [facility] Name Value Range Interpretation Code Description Data Rosanna rce(s) Supporting Document(s) Sodium 138 mmol/L 136-145 Normal (applies to non-numeric resul ts) [facility] Potassium 3.5-5.1 Normal (applies to non-numeric resul ts) [facility] Chloride 101 mmol/L 98-107 Normal (applies to non-numeric resul ts) [facility] Carbon Dioxide CO2 21-32 Normal (applies to non-numer ic results) [facility] Anion Gap 5.0-16.0 Normal (applies to non-numeric resul ts) [facility] BUN 17 mg/dL 7-18 Normal (applies to non-numeric results) [facility] Creatinine,Serum 0.8-1.5 Normal (applies to non-numeric results) [facility] GFR >60 Normal (applies to non-numeric results) [facility] Glucose Level 98 mg/dL 60-99 Normal (applies to non-numeric re sults) [facility] Reference range is only applicable when patient is fasting Note the following drug interference: Sulfasalazine Sulfapyridine Can see falsely depressed Can see falsely elevated result with up to 17% results with up to 11% decrease in measurement increase in measurement Recommend patients be collected for this test prior to administration of either drug. Calcium 8.5-10.1 Normal (applies to non-numeric resul ts) [facility] Bilirubin,Total 0.1-1.9 Normal (applies to non-numeric results) [facility] SGOT(AST) 16 U/L 15-37 Normal (applies to non-numeric resul ts) [facility] Note the following drug interference: Sulfasalazine Sulfapyridine Can see falsely depressed Can see falsely elevated result with up to 10% results with up to 10% decrease in measurement increase in measurement Recommend patients be collected for this test prior to administration of either drug. SGPT(ALT) 28 U/L 12-78 Normal (applies to non-numeric resul ts) [facility] Note the following drug interference: Sulfasalazine Sulfapyridine Can see falsely depressed Can see falsely elevated result with up to 29% results with up to 10% decrease in measurement increase in measurement Recommend patients be collected for this test prior to administration of either drug. Alkaline Phosphatase 84 U/L 38-126 Normal (applies to non-num kyle results) [facility] can increase Alkaline Phosp le vels up to 2 times the normal adult value. Normal values for children and adolescents are 2 to 3 times the normal adult value. Total Protein 6.0-8.2 Normal (applies to non-numeric re sults) [facility] Albumin Level 3.4-5.0 Normal (applies to non-numeric re sults) [facility] ID Date Data Source [id number] 04/07/2020 01:48:00 AM EDT [facility] Name Value Range Interpretation Code Description Data Rosanna rce(s) Supporting Document(s) B-Type Natriuretic Peptide BNP <450 Above high normal [facility] Results of this test should always be us ed in conjunction with the patients medical history, clinical presentation, and other findings. ID Date Data Source [id number] [facility]07[facility] Value Range Interpretation Code Description Data Rosanna rce(s) Supporting Document(s) D-Dimer,Quant 0.19-0.50 Above high normal [facility] The negative predictive value for DVT or PE is at 98% when the result is below the cut off value of 0.50 mg/L FEU. Increases in D-Dimer concentration observed with thromboembolic events can be variable due to localization, size, and age of thrombus. Therefore, a thromboembolic event cannot be diagnosed with certainty on the basis of the reference range. D-Dimers may also be elevated for a variety of disorders including: advanced age, , coronary disease, cancer, liver disease, infection, inflammation, hematoma, DIC, trauma, post surgery, diabetes, thrombolytic therapy, stress, and general hospitialization. D-Dimer levels may be decreased in patients on anticoagulant therapy. ID Date Data Source [id number] 04/07/2020 01:25:00 AM [facility] Name Value Range Interpretation Code Description Data Rosanna rce(s) Supporting Document(s) PT 9.2-11.7 Normal (applies to non-numeric results) [facility] INR Normal (applies to non-numeric results) [facility] The use of INR is restricted to patients on stable oral anticoagulant. Therapeutic Range: 2.0 - 3.0 High Risk Range: 2.5 - 3.5 ID Date Data Source [id number] 04/07/2020 01:25:00 AM T [facility] Name Value Range Interpretation Code Description Data Rosanna rce(s) Supporting Document(s) PTT 23.8-37.9 Normal (applies to non-numeric results) [facility] ID Date Data Source [id number] 04/07/2020 01:08:00 AM [facility] Name Value Range Interpretation Code Description Data Rosanna rce(s) Supporting Document(s) White Blood Count 3.5-10.5 Normal (applies to non-numeri c results) [facility] Red Blood Count 4.30-5.70 Normal (applies to non-numeric results) [facility] Hemoglobin 13.5-17.5 Normal (applies to non-numeric resul ts) [facility] Hematocrit 38.8-50.0 Normal (applies to non-numeric resul ts) [facility] Mean Corpuscular Volume 81.2-95.1 Normal (applies to non- numeric results) [facility] Mean Corpuscular Hgb 25.6-32.2 Normal (applies to non-num kyle results) [facility] Mean Corpuscular Hgb Conc 32.0-36.0 Normal (applies to no n-numeric results) [facility] Red Cell Distribution Width 11.8-15.6 Normal (appli es to non-numeric results) [facility] Platelet Count 215 x10 3/uL 150-450 Normal (applies to non-numeric results) [facility] Mean Platelet Volume 9.4-12.4 Normal (applies to non-num kyle results) [facility] Neutrophils% (Auto) 31.0-71.0 Normal (applies to non-nume dasha results) [facility] Lymphocytes% (Auto) 20.0-55.0 Normal (applies to non-nume dasha results) [facility] Monocytes% (Auto) 4.0-12.0 Normal (applies to non-numeri c results) [facility] Eosinophils% (Auto) 1.0-8.0 Normal (applies to non-nume dasha results) [facility] Basophils% (Auto) 0.0-2.0 Normal (applies to non-numeri c results) [facility] Immature Granulocytes% (Auto) 0.0-2.0 Normal (kristina lies to non-numeric results) [facility] Neutrophils# (Auto) 1.50-6.20 Normal (applies to non-nume dasha results) [facility] Lymphocytes# (Auto) 1.20-4.00 Normal (applies to non-nume dasha results) [facility] Monocytes# (Auto) 0.00-0.90 Normal (applies to non-numeri c results) [facility] Eosinophils# (Auto) 0.00-0.50 Normal (applies to non-nume dasha results) [facility] Basophils# (Auto) 0.00-0.20 Normal (applies to non-numeri c results) [facility] Immature Granulocytes# (Auto) 0.00-7.00 No rmal (applies to non-numeric results) [facility] ID Date Data Source [id number] 04/07/2020 06:28:00 AM EDT [facility] Imaging Services Department Imaging Report [address] [address] %(RAD)RES..mtdd.print.filter("line") Name: ROBERT CERDA SR : 1935 Age/Sex: 84M Ordering Provider: Devon Song NP Med Rec #: [id number] Reg Status: DEP ER Room #: Date of Service: 04/06/20 Report Number: [id number] cc:Sushila Rubalcava MD Send Report To: [id number] XRP/XR Chest Xray Portable Reason for exam: Chest pain complaint Comparison: 01-09-15. FINDINGS: Moderate cardiomegaly without pulmonary vascular congestion. Normalpulmonary vessels. Clear lungs. No pleural effusion. IMPRESSION: No active disease is seen in the chest. Time portable performed: 0015 Fluoroscopy time in seconds: Number of Exposures: Contrast Agent in ml: Method of Administration: REPORT SIGNATURE ON FILE Reported By: Nate Ybarra MD <Electronically signed by Nate Ybarra MD> 04/08/20 1155 Dictation Date/Time: 04/07/20 0031 Transcribed Date/Time: 04/07/20 0628 Sr. Manager: PRASHANT Name Value Range Interpretation Code Description Data Rosanna rce(s) Supporting Document(s) Procedure Social History Code Duration Value Status Description Data Source(s ) Smoking 05/22/2020 12:00:00 AM EST Patient is a former smoker completed Patient is a former smoker [facility] ([facility]) Smoking 04/07/2020 12:00:00 AM EDT Unknown if ever smoked comp leted Unknown if ever smoked [facility] Vital Signs ID Date Data Source UNK Name Value Range Interpretation Code Description Data Source(s) Body weight 213 [lb_av] 213 [lb_av] eCW1 ([facility]) Body weight 96.62 kg 96.62 kg eCW1 ([facility]) Body height 72 [in_i] 72 [in_i] eCW1 ([facility]) Body mass index (BMI) [Ratio] 28.88 kg/m2 28.88 kg/m2 eCW1 ([facility]) Body weight 213 [lb_av] 213 [lb_av] eCW1 ([facility]) Body weight 96.62 kg 96.62 kg eCW1 ([facility]) Body height 72 [in_i] 72 [in_i] eCW1 ([facility]) Body mass index (BMI) [Ratio] 28.88 kg/m2 28.88 kg/m2 eCW1 ([facility]) Body weight 213 [lb_av] 213 [lb_av] eCW1 ([facility]) Body weight 96.62 kg 96.62 kg eCW1 ([facility]) Body height 72 [in_i] 72 [in_i] eCW1 ([facility]) Body mass index (BMI) [Ratio] 28.88 kg/m2 28.88 kg/m2 eCW1 ([facility]) Systolic blood pressure 128 mm[Hg] 128 mm[Hg] e CW1 ([facility]) Diastolic blood pressure 84 mm[Hg] 84 mm[Hg] eCW1 ([facility]) Body weight 213.6 [lb_av] 213.6 [lb_av] eCW1 ([facility]) Body weight 96.89 kg 96.89 kg eCW1 ([facility]) Body height 72 [in_i] 72 [in_i] eCW1 ([facility]) Body mass index (BMI) [Ratio] 28.97 kg/m2 28.97 kg/m2 eCW1 ([facility]) Systolic blood pressure 124 mm[Hg] 124 mm[Hg] e CW1 ([facility]) Diastolic blood pressure 82 mm[Hg] 82 mm[Hg] eCW1 ([facility]) Respiratory rate 18 /min 18 /min eCW1 ([facility]) Heart rate 97 /min 97 /min eCW1 ([facility]) Body weight 212.6 [lb_av] 212.6 [lb_av] eCW1 ([facility]) Body temperature 97.8 [degF] 97.8 [degF] eCW1 ( [facility]) Body weight 96.43 kg 96.43 kg eCW1 ([facility]) Body height 72 [in_i] 72 [in_i] eCW1 ([facility]) Systolic blood pressure 132 mm[Hg] 132 mm[Hg] e CW1 ([facility]) Body mass index (BMI) [Ratio] 28.83 kg/m2 28.83 kg/m2 eCW1 ([facility]) Diastolic blood pressure 80 mm[Hg] 80 mm[Hg] eCW1 ([facility]) Respiratory rate 18 /min 18 /min eCW1 ([facility]) Body weight 213.4 [lb_av] 213.4 [lb_av] eCW1 ([facility]) Body weight 96.8 kg 96.8 kg eCW1 ([facility]) Body height 72 [in_i] 72 [in_i] eCW1 ([facility]) Body mass index (BMI) [Ratio] 28.94 kg/m2 28.94 kg/m2 eCW1 ([facility]) Heart rate 93 /min 93 /min eCW1 ([facility]) Body temperature 96.2 [degF] 96.2 [degF] eCW1 ( [facility]) Systolic blood pressure 126 mm[Hg] 126 mm[Hg] e CW1 ([facility]) Diastolic blood pressure 70 mm[Hg] 70 mm[Hg] eCW1 ([facility]) Body weight 213.6 [lb_av] 213.6 [lb_av] eCW1 ([facility]) Body height 72 [in_i] 72 [in_i] eCW1 ([facility]) Body mass index (BMI) [Ratio] 28.97 kg/m2 28.97 kg/m2 eCW1 ([facility]) Heart rate 77 /min 77 /min eCW1 ([facility]) Respiratory rate 18 /min 18 /min eCW1 ([facility]) Body temperature 97.9 [degF] 97.9 [degF] eCW1 ( [facility]) Systolic blood pressure 145 mm[Hg] 145 mm[Hg] e CW1 ([facility]) Diastolic blood pressure 69 mm[Hg] 69 mm[Hg] eCW1 ([facility]) Body weight 217.2 [lb_av] 217.2 [lb_av] eCW1 ([facility]) Body height 72 [in_i] 72 [in_i] eCW1 ([facility]) Body mass index (BMI) [Ratio] 29.45 kg/m2 29.45 kg/m2 eCW1 ([facility]) Heart rate 67 /min 67 /min eCW1 ([facility]) Respiratory rate 17 /min 17 /min eCW1 ([facility]) Body temperature 98.1 [degF] 98.1 [degF] eCW1 ( [facility]) Systolic blood pressure 122 mm[Hg] 122 mm[Hg] e CW1 ([facility]) Diastolic blood pressure 66 mm[Hg] 66 mm[Hg] eCW1 ([facility]) Body weight 97.070 kg 97.070 kg MED[facility] ([facility] ) Body surface area Derived from formula 2.19 m2 2.19 m2 [facility] ([facility], ) Systolic blood pressure 116 mm[Hg] 116 mm[Hg] M EDENT ([facility], ) Diastolic blood pressure 66 mm[Hg] 66 mm[Hg] [facility] ([facility], ) Heart rate 73 /min 73 /min [facility] ([facility]) Oxygen saturation in Arterial blood by Pulse oximetry 98 % 98 % [facility] ([facility]) Body height 72 [in_i] 72 [in_i] [facility] ([facility]) 6'0" Body weight 214.00 [lb_av] 214.00 [lb_av] MEDEN T ([facility]) Body mass index (BMI) [Ratio] 29.0 kg/m2 29.0 k g/m2 [facility] ([facility]) [place] body weight 178 [lb_av] 178 [facility]_av[facility] Body weight 218.4 [lb_av] 218.4 [lb_av] eCW1 ([facility]) Body height 72 [in_i] 72 [in_i] eCW1 ([facility]) Body mass index (BMI) [Ratio] 29.62 kg/m2 29.62 kg/m2 eCW1 ([facility]) Heart rate 75 /min 75 /min eCW1 ([facility]) Respiratory rate 17 /min 17 /min eCW1 ([facility]) Body temperature 97.6 [degF] 97.6 [degF] eCW1 ( [facility]) Systolic blood pressure 138 mm[Hg] 138 mm[Hg] e CW1 ([facility]) Diastolic blood pressure 79 mm[Hg] 79 mm[Hg] eCW1 ([facility]) Body weight 215.4 [lb_av] 215.4 [lb_av] eCW1 ([facility]) Body height 72 [in_i] 72 [in_i] eCW1 ([facility]) Body mass index (BMI) [Ratio] 29.21 kg/m2 29.21 kg/m2 W1 ([facility]) Heart rate 76 /min 76 /min eCW1 ([facility]) Respiratory rate 18 /min 18 /min eCW1 ([facility]) Body temperature 97.4 [degF] 97.4 [degF] eCW1 ( [facility]) Systolic blood pressure 135 mm[Hg] 135 mm[Hg] e CW1 ([facility]) Diastolic blood pressure 70 mm[Hg] 70 mm[Hg] eCW1 ([facility]) Body weight 214.6 [lb_av] 214.6 [lb_av] eCW1 ([facility]) Body height 72 [in_i] 72 [in_i] eCW1 ([facility]) Body mass index (BMI) [Ratio] 29.10 kg/m2 29.10 kg/m2 eCW1 ([facility]) Heart rate 57 /min 57 /min eCW1 ([facility]) Respiratory rate 19 /min 19 /min eCW1 ([facility]) Body temperature 96.8 [degF] 96.8 [degF] eCW1 ( [facility]) Systolic blood pressure 144 mm[Hg] 144 mm[Hg] e CW1 ([facility]) Diastolic blood pressure 91 mm[Hg] 91 mm[Hg] eCW1 ([facility]) Body weight 218 [lb_av] 218 [lb_av] eCW1 ([facility]) Body height 72 [in_i] 72 [in_i] eCW1 ([facility]) Body mass index (BMI) [Ratio] 29.56 kg/m2 29.56 kg/m2 eCW1 ([facility]) Heart rate 86 /min 86 /min eCW1 ([facility]) Respiratory rate 18 /min 18 /min eCW1 ([facility]) Systolic blood pressure 128 mm[Hg] 128 mm[Hg] e CW1 ([facility]) Diastolic blood pressure 72 mm[Hg] 72 mm[Hg] eCW1 ([facility]) Body weight 224 [lb_av] 224 [lb_av] eCW1 ([facility]) Body height 72 [in_i] 72 [in_i] eCW1 ([facility]) Body mass index (BMI) [Ratio] 30.38 kg/m2 30.38 kg/m2 eCW1 ([facility]) Heart rate 58 /min 58 /min eCW1 ([facility]) Respiratory rate 18 /min 18 /min eCW1 ([facility]) Body temperature 97.3 [degF] 97.3 [degF] [facility] [facility]) Systolic blood pressure 172 mm[Hg] 172 mm[Hg] e CW1 ([facility]) Diastolic blood pressure 74 mm[Hg] 74 mm[Hg] eCW1 ([facility]) Body height 72 [in_i] 72 [in_i] eCW1 ([facility]) Body mass index (BMI) [Ratio] 30.38 kg/m2 30.38 kg/m2 eCW1 ([facility]) Body weight 224 [lb_av] 224 [lb_av] eCW1 ([facility]) Systolic blood pressure 117 mm[Hg] 117 mm[Hg] e CW1 ([facility]) Heart rate 80 /min 80 /min eCW1 ([facility]) Body temperature 98.2 [degF] 98.2 [degF] eCW1 ( [facility]) Respiratory rate 18 /min 18 /min eCW1 ([facility]) Diastolic blood pressure 72 mm[Hg] 72 mm[Hg] eCW1 ([facility]) Body weight 220 [lb_av] 220 [lb_av] eCW1 ([facility]) Body height 72 [in_i] 72 [in_i] eCW1 ([facility]) Body mass index (BMI) [Ratio] 29.83 kg/m2 29.83 kg/m2 eCW1 ([facility]) Heart rate 75 /min 75 /min eCW1 ([facility]) Respiratory rate 18 /min 18 /min eCW1 ([facility]) Systolic blood pressure 124 mm[Hg] 124 mm[Hg] e CW1 ([facility]) Diastolic blood pressure 84 mm[Hg] 84 mm[Hg] eCW1 ([facility]) Body mass index (BMI) [Ratio] 29.56 kg/m2 29.56 kg/m2 eCW1 ([facility]) Body weight 218 [lb_av] 218 [lb_av] eCW1 ([facility]) Body height 72 [in_i] 72 [in_i] eCW1 ([facility]) Heart rate 104 /min 104 /min eCW1 ([facility]) Respiratory rate 18 /min 18 /min eCW1 ([facility]) Systolic blood pressure 110 mm[Hg] 110 mm[Hg] e CW1 ([facility]) Diastolic blood pressure 66 mm[Hg] 66 mm[Hg] eCW1 ([facility]) Body mass index (BMI) [Ratio] 30.2 kg/m2 30.2 k g/m2 MEDENT ([facility]) Heart rate 62 /min 62 /min MEDENT ([facility]) Systolic blood pressure--sitting 127 mm[Hg] 127 mm[Hg] MEDENT ([facility]) CBP, adult cuff/Ra Diastolic blood pressure--sitting 73 mm[Hg] 73 mm[Hg] MEDENT ([facility]) CBP, adult cuff/Ra Body weight 223.00 [lb_av] 223.00 [lb_av] MEDEN T ([facility]) Body height 72 [in_i] 72 [in_i] MEDENT ([facility]) 6'0" Body weight 219 [lb_av] 219 [lb_av] eCW1 ([facility]) Body height 72 [in_i] 72 [in_i] eCW1 ([facility]) Body mass index (BMI) [Ratio] 29.70 kg/m2 29.70 kg/m2 eCW1 ([facility]) Heart rate 68 /min 68 /min eCW1 ([facility]) Respiratory rate 16 /min 16 /min eCW1 ([facility]) Body temperature 98.2 [degF] 98.2 [degF] eCW1 ( [facility]) Systolic blood pressure 110 mm[Hg] 110 mm[Hg] e CW1 ([facility]) Diastolic blood pressure 68 mm[Hg] 68 mm[Hg] eCW1 ([facility]) Body weight 220.00 [lb_av] 220.00 [lb_av] MEDEN T ([facility]) Body height 72 [in_i] 72 [in_i] MEDENT ([facility]) 6'0" Body mass index (BMI) [Ratio] 29.8 kg/m2 29.8 k g/m2 MEDENT ([facility]) Heart rate 49 /min 49 /min MEDENT ([facility]) Systolic blood pressure--sitting 150 mm[Hg] 150 mm[Hg] MEDENT ([facility]) CBP, adult cuff/Ra Diastolic blood pressure--sitting 79 mm[Hg] 79 mm[Hg] MEDENT ([facility]) CBP, adult cuff/Ra ID Date Data Source [id number] 05/01/2021 11:25:[address] [facility] spital Name Value Range Interpretation Code Description Data Source(s) Weight Measurement Method 8 8 [facility] Weight 3520 3520 [facility] pital Temperature Source 7 7 [facility] Temperature 98.[address] [facility] spital Respiratory Effort 3 3 [facility] Respiratory Rate 22 22 [facility] Pulse Assessment Method 4 4 [facility] Pulse Rate 64 64 [facility]ital Height 72 72 [facility] Blood Pressure 146/88 146/88 [facility] ID Date Data Source [id number] 04/24/2021 11:37:[address] [facility] spital Name Value Range Interpretation Code Description Data Source(s) Weight Measurement Method 8 8 [facility] Weight 3520 3520 [facility] pital Temperature Source 7 7 [facility] Temperature 97.[address] [facility] spital Respiratory Effort 1 1 [facility] Respiratory Rate 16 16 [facility] Pulse Assessment Method 4 4 [facility] Pulse Rate 57 57 [facility] pital Height 72 72 [facility] Blood Pressure 111/76 111/76 [facility] Weight Measurement Method 8 8 [facility] Weight 3520 3520 [facility] pital Temperature Source 7 7 [facility] Temperature [address] [facility] spital Respiratory Effort 1 1 [facility] Respiratory Rate 16 16 [facility] Pulse Assessment Method 4 4 [facility] Pulse Rate 64 64 [facility] pital Height 72 72 [facility] pital Blood Pressure 128/82 128/82 [facility] Weight Measurement Method 8 8 [facility] Weight 3520 3520 [facility] pital Temperature Source 7 7 [facility] Temperature [address] [facility] spital Respiratory Effort 1 1 [facility] Respiratory Rate 16 16 [facility] Pulse Assessment Method 4 4 [facility] Pulse Rate 64 64 [facility] pital Height 72 72 [facility] pital Blood Pressure 128/82 128/82 [facility] ID Date Data Source [id number] 12/12/2020 10:38:00 AM EDT [facility] Name Value Range Interpretation Code Description Data Source(s) Weight Measurement Method 8 8 [facility] Weight 3520 3520 [facility] pital Temperature Source 7 7 [facility] Temperature 97.[address] [facility] spital Respiratory Effort 1 1 [facility] Respiratory Rate 18 18 [facility] Pulse Assessment Method 4 4 [facility] Pulse Rate 89 89 [facility] pital Height 72 72 [facility] pital Blood Pressure 106/92 106/92 [facility] Weight Measurement Method 8 8 [facility] Weight 3520 3520 [facility] pital Temperature Source 7 7 [facility] Temperature [address] [facility] spital Respiratory Effort 1 1 [facility] Respiratory Rate 18 18 [facility] Pulse Assessment Method 4 4 G [facility] Pulse Rate 89 89 [facility] pital Height 72 72 [facility] pital Blood Pressure 106/92 106/92 [facility] ID Date Data Source [id number] 04/24/2020 05:42:17 PM EDT [facility] Name Value Range Interpretation Code Description Data Source(s) WEIGHT RECORDED 223.33 lb 223.33 lb [facility] WEIGHT RECORDED 226.85 lb 226.85 lb [facility] WEIGHT RECORDED 226.85 lb 226.85 lb [facility] Body height Measured 72.01 in 72.01 in [facility] WEIGHT RECORDED 226.85 lb 226.85 lb [facility] Body height Measured 72 in 72 in [facility] TRANSFER FROM [facility] ID Date Data Source [id number] 04/08/2020 11:56:00 AM EDT [facility] Name Value Range Interpretation Code Description Data Source(s) Weight Measurement Method 8 8 [facility] Weight 3536 3536 [facility] pital Temperature Source 7 7 [facility] Temperature 98.[address] [facility] spital Respiratory Effort 1 1 [facility] Respiratory Rate 18 18 [facility] Pulse Assessment Method 4 4 [facility] Pulse Rate 60 60 [facility] Blood Pressure 143/87 143/87 [facility] Weight Measurement Method 8 8 [facility] Weight 3536 3536 [facility] pital Temperature Source 7 7 [facility] Temperature [address] [facility] spital Respiratory Effort 1 1 [facility] Respiratory Rate 22 22 [facility] Pulse Assessment Method 4 4 G [facility] Pulse Rate 60 60 [facility] pital Blood Pressure 171/94 171/94 [facility] Weight Measurement Method 8 8 [facility] Weight 3536 3536 [facility] pital Temperature Source 7 7 [facility] Temperature [address] [facility] spital Respiratory Effort 1 1 [facility] Respiratory Rate 24 24 [facility] Pulse Assessment Method 4 4 G [facility] Pulse Rate 101 101 [facility] pital Blood Pressure 179/101 179/101 [facility] Patient Treatment Plan of Care Planned Activity Planned Date Details Description Data Source (s) Cephalexin 500 MG Oral Capsule 04/09/2021 12:00:00 AM EDT eCW1 ([facility]) Vitamin B12 1000 MCG 02/20/2021 12:00:00 AM EDT eCW1 ([facility]) Vitamin B12 1000 MCG 02/20/2021 12:00:00 AM EDT eCW1 ([facility]) Vitamin B12 1000 MCG 02/20/2021 12:00:00 AM EDT eCW1 ([facility]) Vitamin B12 1000 MCG 02/20/2021 12:00:00 AM EDT eCW1 ([facility]) Vitamin B12 1000 MCG 02/20/2021 12:00:00 AM EDT eCW1 ([facility]) Vitamin B12 1000 MCG 02/20/2021 12:00:00 AM EDT eCW1 ([facility]) Prednisone 20 MG Oral Tablet 11/07/2020 12:00:00 AM EDT eCW1 ([facility]) Prednisone 20 MG Oral Tablet 11/07/2020 12:00:00 AM EDT eCW1 ([facility]) gabapentin 100 MG Oral Capsule 10/24/2020 12:00:00 AM EDT eCW1 ([facility]) Diclofenac Sodium 0.01 MG/MG Topical Gel [Voltaren] 08/22/19 21 12:00:00 AM EST eCW1 ([facility]) Diclofenac Sodium 0.01 MG/MG Topical Gel [Voltaren] 08/22/19 12:00:00 AM EST eCW1 ([facility]) Diclofenac Sodium 0.01 MG/MG Topical Gel [Voltaren] 08/22/19 21 12:00:00 AM EST eCW1 ([facility]) Diclofenac Sodium 0.01 MG/MG Topical Gel [Voltaren] 08/22/19 21 12:00:00 AM EST eCW1 ([facility]) Diclofenac Sodium 0.01 MG/MG Topical Gel [Voltaren] 08/22/19 12:00:00 AM EST eCW1 ([facility]) Diclofenac Sodium 0.01 MG/MG Topical Gel [Voltaren] 08/22/19 12:00:00 AM EST eCW1 ([facility]) Diclofenac Sodium 0.01 MG/MG Topical Gel [Voltaren] 08/22/19 12:00:00 AM EST eCW1 ([facility]) Diclofenac Sodium 0.01 MG/MG Topical Gel [Voltaren] 08/22/19 12:00:00 AM EST eCW1 ([facility]) cefdinir 300 MG Oral Capsule 07/15/2020 12:00:00 AM EST eCW1 ([facility]) clopidogrel 75 MG Oral Tablet 05/07/2020 12:00:00 AM EST eCW1 ([facility]) clopidogrel 75 MG Oral Tablet 05/07/2020 12:00:00 AM EST eCW1 ([facility]) clopidogrel 75 MG Oral Tablet 05/07/2020 12:00:00 AM EST eCW1 ([facility]) clopidogrel 75 MG Oral Tablet 05/07/2020 12:00:00 AM EST eCW1 ([facility]) atorvastatin 40 MG Oral Tablet 05/07/2020 12:00:00 AM EST eCW1 ([facility]) Aspirin 81 MG Delayed Release Oral Tablet 05/07/2020 12:00:00 AM ES T eCW1 ([facility]) clopidogrel 75 MG Oral Tablet 05/07/2020 12:00:00 AM EST eCW1 ([facility]) Omeprazole 20 MG Delayed Release Oral Capsule 04/17/2020 12:00:00 A M EDT eCW1 ([facility]) Omeprazole 20 MG Delayed Release Oral Capsule 04/17/2020 12:00:00 A M EDT eCW1 ([facility]) Omeprazole 20 MG Delayed Release Oral Capsule 04/17/2020 12:00:00 A M EDT eCW1 ([facility]) clopidogrel 75 MG Oral Tablet 04/10/2020 12:00:00 AM [facility] Aspirin 81 MG Chewable Tablet 04/10/2020 12:00:00 AM [facility] Metoprolol Tartrate 50 MG Oral Tablet 04/09/2020 12:00:00 AM [facility] atorvastatin 40 MG Oral Tablet 04/09/2020 12:00:00 AM [facility] Nitroglycerin 0.4 MG Sublingual Tablet 04/07/2020 12:09:17 PM [facility]
[2021-05-07 09:43] LABS: BASO # 0.1 10^3/uL (0.0-0.2); BASO % 1.1 % (0.0-1.0); EOS # 0.2 10^3/uL (0.0-0.5); EOS % 3.7 % (0.0-3.0); HEMATOCRIT 38.4 % (42.0-52.0); LYMPH # 1.1 10^3/uL (1.5-5.0); LYMPH % 18.3 % (24.0-44.0); MEAN CORPUSCULAR HGB CONC 33.9 g/dl (32.0-36.5); MEAN CORPUSCULAR VOLUME 91.6 fl (80.0-96.0); MONO # 0.6 10^3/uL (0.0-0.8); MONO % 9.1 % (2.0-8.0); NEUTROPHILS # 4.1 10^3/uL (1.5-8.5); NEUTROPHILS % 67.3 % (36.0-66.0); PLATELET COUNT, AUTOMATED 172 10^3/uL (150-450); RED BLOOD COUNT 4.19 10^6/uL (4.30-6.10); WHITE BLOOD COUNT 6.2 10^3/uL (4.0-10.0)
--- NOTE | 2021-05-07 09:46 | REP ---
INDICATION: Syncope/near-syncope. COMPARISON: 10/06/2018 TECHNIQUE: An AP sitting portable chest film was obtained. FINDINGS: Cardiac lead wires are present. Degenerative changes are also noted about both shoulders and in the thoracic spine.. The right lung is currently clear. A small vertical linear area of increased density at the left lung base appears to be new and follow up to exclude growth is suggested. The lungs are otherwise clear. The heart is not enlarged however mild ectasia of the thoracic aorta with a small amount of calcification in the aortic knob is noted. IMPRESSION: New area of parenchymal opacification at the left lung base. Consider follow-up to exclude growth. 2. No other significant abnormality is currently identified. <Electronically signed by Josh Horton > 05/07/21 [id number]
[2021-05-07] MEDS ORDERED: COLC0.6T47 PO (09:58)
[2021-05-07] MEDS ORDERED: FINA5TAB2 PO (09:58)
[2021-05-07] MEDS ORDERED: LOSA100T50 PO (09:58)
[2021-05-07] MEDS ORDERED: PLAV1TAB2 PO (09:58)
[2021-05-07] MEDS ORDERED: ATOR40TA75 PO (09:58)
[2021-05-07] MEDS ORDERED: ISOS1TAB12 PO (09:58)
[2021-05-07] MEDS ORDERED: ASPI81TA26 PO (09:58)
[2021-05-07] MEDS ORDERED: OMEP10CASR PO (09:58)
[2021-05-07 10:09] LABS: BLOOD UREA NITROGEN 16 MG/DL (7-18); CALCIUM LEVEL 8.7 MG/DL (8.8-10.2); CARBON DIOXIDE LEVEL 29 MEQ/L (21-32); CHLORIDE LEVEL 110 MEQ/L (98-107); CREATININE FOR GFR 1.11 MG/DL (0.70-1.30); GLOMERULAR FILTRATION RATE > 60.0 (>35); GLUCOSE, FASTING 114 MG/DL (70-100); MAGNESIUM LEVEL 1.9 MG/DL (1.8-2.4); POTASSIUM SERUM 3.6 MEQ/L (3.5-5.1); SODIUM LEVEL 143 MEQ/L (136-145)
[2021-05-07 10:16] LABS: RSV AMPLIFICATION NEGATIVE (NEGATIVE)
--- OUTSIDE RECORDS SUMMARY | 2021-05-07 10:19 | CCD ---
Author Author [facility] Organization [facility] Address Unknown Phone Unavailable Care Team Providers Care Green Building Design Specialist Name Role Phone Aaron Ball Unavailable PROBLEMS Type Condition ICD9-CM Code [id number] Code Onset Dates Condition S tatus W/U Status Risk SNOMED Code Notes Problem BPH (benign prostatic hyperplasia) N40.0 Activ e confirmed 081853312 Problem Allergic rhinitis, unspecifi ed allergic rhinitis trigger, unspecified rhinitis seasonality J30.9 Active confirmed 21205612 Problem Essential hypertension I10 Active confirmed 90020316 Problem Arthritis M19.90 Active confirmed 9092294 Problem Renal calculi N20.0 Active confirmed 144954 07 Problem Gastroesophageal reflux disease without esophagitis K21.9 Active confirmed 618277427 Problem Gross hematuria R31.0 Active confirmed 1978 10056 Problem Lumbosacral spondylosis with radiculopathy M47.27 Active confirmed 178020389 Problem Skin carcinoma C44.99 Active confirmed 40193 0007 Problem Non-ST elevation myocardial infarction (NSTEMI) in recovery phase I21.4 Active confirmed 254382817 Problem Carcinoma C80.1 Active confirmed 983141450 Problem Idiopathic chronic gout of foot without tophus, 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 confirmed 61047554 Problem Peripheral vascular disease I73.9 Active confirmed 715630852 Problem Claudication I73.9 Active confirmed 7961830 6 Problem Memory loss R41.3 Active confirmed 78792693 Problem Carcinoma, 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 Active confirmed 604861293 ALLERGIES No Known Allergies ENCOUNTERS from 1935 to 2021-04-16 Encounter Location Date Provider Diagnosis [facility] Dermatology [address] [place] [address] [place] [address] Mar, Aaron Ball Healing wound T14.90XD IMMUNIZATIONS Vaccine Route Administration Date Status Influenza [...] 72 in Mar, BMI 28.88 kg/m2 Mar, MEDICATIONS Medication SIG (Take, Route, Frequency, [...] Information RESULTS No Results REASON FOR VISIT Wound check MEDICAL (GENERAL) HISTORY Type Description Date [...] Treatment Notes Treatm ent Clinical Notes Mar, Healing wound (ICD-10 - T14.90XD) Healing well without complication. Dressing changes and wound cleaned. Still awaiting final path prior to reconstruction vs. secondary intent scheduled for 04/21/2021 at 1300 PLAN OF TREATMENT Treatment Notes Assessment Notes Clinical Notes Healing wound Healing well without complication. Dressing changes and wound cleaned. Still awaiting final path prior to reconstruction vs. secondary intent scheduled for 04/21/2021 at 1300 Next Appt Details Provider Name:Aaron Ball, 04-21 01:00:00 PM, [address] [place] [address], , [place], [address], Insurance Providers Payer Name Payer Address Payer Phone Insured Name Patient Relati onship to Insured Coverage Start Date Coverage End Date [employer] [facility] CLAIM DIV [address] [facility] [id number] [place] CERDA self MEDICARE Part A and B [address] [facility] [phone] [place] CERDA self
--- OUTSIDE RECORDS SUMMARY | 2021-05-07 10:19 | CCD | Continuity of Care Document ---
Author Author Robert SPAULDING M.D. Organization Unknown Address [address] [place] [id number] Phone [phone] Care Team Providers Care Oyster Cultivator Name Role Phone Ladan Carrillo M.D. AUTM [phone] Problems Description No Information Available Social History Type Date Description Comments Sex Unknown Allergies and adverse reactions Description No Information Available Medications Description No Information Available Immunizations Description No Information Available Vital Signs Description No Information Available Results Description No Information Available Procedures Date Code Description Status 04/17/2021 76044 Assessment/Care Planning For Pat ient W/Cognitive Impairment Completed Medical Devices Description No Information Available Encounters Type Date Location Provider Dx Diagnosis Office Visit 04/17/2021 1:30p [facility] Stacy Spaulding M.D. G47.51 Confusional arousals R41.3 Other amnesia R44.1 Visual hallucinations Assessments Date Code Description Provider 04/17/2021 G47.51 Confusional arousals Stacy barragan M.D. 04/17/2021 R41.3 Other amnesia Jh Motley 04/17/2021 R44.1 Visual hallucinations Stacy andrade M.D. Plan of Treatment Future Appointment(s):* 04/19/2021 6:00 pm - MRI at [facility] * 05/27/2021 2:30 pm - EEG at [facility] * 06/06/2021 10:30 am - Flora Lovell P.A.-C. at [facility] Functional Status Description No Information Available Mental Status Description No Information Available Referrals Description No Information Available
--- OUTSIDE RECORDS SUMMARY | 2021-05-07 10:19 | CCD ---
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 confirmed 93176612 Problem Non-ST elevation myocardial infarction (NSTEMI) in recovery phase I21.4 Active confirmed 482864491 Problem Claudication I73.9 Active confirmed 9264247 6 Problem Renal calculi N20.0 Active confirmed 755665 07 Problem Memory loss R41.3 Active confirmed 83412640 Problem Allergic rhinitis, unspecifi ed allergic rhinitis trigger, unspecified rhinitis seasonality J30.9 Active confirmed 27995731 Problem Gastroesophageal reflux disease without esophagitis K21.9 Active confirmed 230685425 Problem Gross hematuria R31.0 Active confirmed 1978 91887 Problem Lumbosacral spondylosis with radiculopathy M47.27 Active confirmed 825986730 Problem Peripheral vascular disease I73.9 Active confirmed 810423091 ALLERGIES No Known Allergies ENCOUNTERS from 1935 to 2021-02-20 Encounter Location Date Provider Diagnosis [facility] [address] [phone] [place] [address] Jan, Ladan Carrillo Memory loss R41.3 and Skin l esion L98.9 IMMUNIZATIONS Vaccine Route Administration Date Status [...] counseling REASON FOR REFERRAL from 1936 to 2021-02-20 Reason 85 y old M with memory loss and signs of dementia; please further evaluate and treat. Diagnosis 1 Memory loss (R41.3) Referral Organization [facility] Nathan Referring Provider First Name Ladan Referring Provider Last Name Lorena Referring Provider Specialty Family Medicine Referred Provider Flora Lovell Referred Provider Specialty Neurology Referral Priority Routine General Notes Danielle Ruiz 02/19/2021 4:2 7:24 PM > Sent VITAL SIGNS Weight 213.6 lbs Jan, Height 72 in Jan, BMI 28.97 kg/m2 Jan, Heart Rate 77 /min Jan, Respiratory Rate 18 /min Jan, Temperature 97.9 degrees Fahrenheit Jan, Oximetry 97 Jan, Blood pressure systolic 145 mm Hg Jan, Blood pressure diastolic 69 mm Hg Jan, MEDICATIONS Medication SIG (Take, [...] r, 2020 Not-Taking PROCEDURES No Information RESULTS Component Value Reference Range CBC with Differential Reviewed date:02/20/2021 13:42:58 Interpretation:Normal Performing Lab:[facility], [facility] [address] [id number] , ,[place] [address] WHITE BLOOD COUNT 6.5 4.0-10.0 RED BLOOD COUNT 4.59 4.30-6.10 HEMOGLOBIN 14.0 13.5-17.5 HEMATOCRIT 42.2 42.0-52.0 MEAN CORPUSCULAR VOLUME 91.9 80.0-96.0 MEAN CORPUSCULAR HEMOGLOBIN 30.5 27.0-33.0 MEAN CORPUSCULAR HGB CONC 33.2 32.0-36.5 RED CELL DISTRIBUTION WIDTH 13.8 11.5-14.5 PLATELET COUNT, AUTOMATED 212 150-450 NEUTROPHILS % 59.0 36.0-66.0 LYMPH % 24.0 24.0-44.0 MONO % 10.0 2.0-8.0 EOS % 5.4 0.0-3.0 BASO % 1.1 0.0-1.0 NEUTROPHILS # 3.8 1.5-8.5 LYMPH # 1.6 1.5-5.0 MONO # 0.7 0.0-0.8 EOS # 0.4 0.0-0.5 BASO # 0.1 0.0-0.2 Comprehensive Metabolic Profile (CMP) Reviewed date:02/20/2021 13:42:58 Interpretation:Normal Performing Lab:[facility] [address] [facility] [id number] , ,[facility] GLUCOSE, FASTING 146 70-100 BLOOD UREA NITROGEN 16 7-18 CREATININE FOR GFR 1.10 0.70-1.30 GLOMERULAR FILTRATION RATE > 60.0 >35 SODIUM LEVEL 143 136-145 POTASSIUM SERUM 4.1 3.5-5.1 CHLORIDE LEVEL 110 98-107 CARBON DIOXIDE LEVEL 25 21-32 CALCIUM LEVEL 9.1 8.8-10.2 AST/SGOT 12 7-37 ALT/SGPT 27 12-78 ALKALINE PHOSPHATASE 97 45-117 BILIRUBIN,TOTAL 0.6 0.2-1.0 TOTAL PROTEIN 5.9 6.4-8.2 ALBUMIN 3.4 3.2-5.2 ALBUMIN/GLOBULIN RATIO 1.4 FREE T4 & TSH PANEL Reviewed date:02/20/2021 13:42:58 Interpretation:FT4 (0.69) Performing Lab:[facility] [address] [id number] , ,[facility] THYROID STIMULATING HORMONE 0.949 0.358-3.740 FREE T4 0.69 0.76-1.46 VITB12 & FOL Reviewed date:02/20/2021 13:42:59 Interpretation:Low Performing Lab:[facility] [address] [id number] , ,[facility] VITAMIN B12 LEVEL 179 FOLATE 16.7 REASON FOR VISIT MEMORY LOSS MEDICAL (GENERAL) HISTORY Type Description Date Medical [...] Treatment Notes Treatm ent Clinical Notes Jan, Memory loss (ICD-10 - R41.3) Pt having memory loss, and often repeats himself during conversation. concerned about his memory loss. Will obtain labs specified above and send referral to Neurology for further evaluation and management. Jan, Skin lesion (ICD-10 - L98.9) STAT referral was sent to [facility] dermatology office on 02/10/2021. The appointment they gave patient is for April (3 months from now). Will try to get patient into the resident clinic for skin biopsy sooner. If biopsy is positive then we can get him into [facility] dermatology office for surgical referral. PLAN OF TREATMENT Medication Medication Name Sig Start Date Stop Date Vitamin B12 1000 MCG 1 tablet Orally Once a day for 30 day(s) Jan, Vitamin B12 1000 MCG 1 tablet Orally Once a day for 30 day(s) Jan, Treatment Notes Assessment Notes Clinical Notes Memory loss Pt having memory los s, and often repeats himself during conversation. concerned about his memory loss. Will obtain labs specified above and send referral to Neurology for further evaluation and management. Skin lesion STAT referral was se nt to [facility] dermatology office on 02/10/2021. The appointment they gave patient is for April (3 months from now). Will try to get patient into the resident clinic for skin biopsy sooner. If biopsy is positive then we can get him into [facility] dermatology office for surgical referral. Referrals Referral Date Details 85 y old M with memory loss and signs of dementia; please further evaluate and treat.Flora Next Appt Details 3 Months Reason:f/u Follow Up:3 Monthsf/u Insurance Providers Payer Name Payer Address Payer Phone Insured Name Patient Relati onship to Insured Coverage Start Date Coverage End Date [employer] [facility] CLAIM [facility] [address] [facility] [id number] [place] MEDICARE Part A and B [address] [facility] [phone] [place] self
--- OUTSIDE RECORDS SUMMARY | 2021-05-07 10:21 | CCD ---
Author Author [facility] Organization [facility] Address Unknown Phone Unavailable Care Team Providers Care Personnel Clerks Supervisor Name Role Phone Deepak Markham Ciara EDUCATIONAL SPEECH LANGUAGE CLINICIAN Unavailable Unavailable Shahrzad, L Ciara EDUCATIONAL SPEECH LANGUAGE CLINICIAN Unavailable Unavailable Shahrzad, L Ciara EDUCATIONAL SPEECH LANGUAGE CLINICIAN Unavailable Unavailable Shahrzad, L Ciara EDUCATIONAL SPEECH LANGUAGE CLINICIAN Unavailable Unavailable Shahrzad, L Ciara EDUCATIONAL SPEECH LANGUAGE CLINICIAN Unavailable Unavailable Shahrzad, L Ciara EDUCATIONAL SPEECH LANGUAGE CLINICIAN Unavailable Unavailable Shahrzad, L Ciara EDUCATIONAL SPEECH LANGUAGE CLINICIAN Unavailable Unavailable Shahrzad, L Ciara EDUCATIONAL SPEECH LANGUAGE CLINICIAN Unavailable Unavailable Shahrzad, L Ciara EDUCATIONAL SPEECH LANGUAGE CLINICIAN Unavailable Unavailable Shahrzad, L Ciara EDUCATIONAL SPEECH LANGUAGE CLINICIAN Unavailable Unavailable Shahrzad, L Ciara EDUCATIONAL SPEECH LANGUAGE CLINICIAN Unavailable Unavailable Shahrzad, L Ciara EDUCATIONAL SPEECH LANGUAGE CLINICIAN Unavailable Unavailable Shahrzad, L Ciara EDUCATIONAL SPEECH LANGUAGE CLINICIAN Unavailable Unavailable Shahrzad, L Ciara EDUCATIONAL SPEECH LANGUAGE CLINICIAN Unavailable Unavailable Shahrzad, L Ciara EDUCATIONAL SPEECH LANGUAGE CLINICIAN Unavailable Unavailable Shahrzad, L Ciara EDUCATIONAL SPEECH LANGUAGE CLINICIAN Unavailable Unavailable Shahrzad, L Ciara EDUCATIONAL SPEECH LANGUAGE CLINICIAN Unavailable Unavailable Shahrzad, L Ciara EDUCATIONAL SPEECH LANGUAGE CLINICIAN Unavailable Unavailable Shahrzad, L Ciara EDUCATIONAL SPEECH LANGUAGE CLINICIAN Unavailable Unavailable Shahrzad, L Ciara EDUCATIONAL SPEECH LANGUAGE CLINICIAN Unavailable Unavailable Shahrzad, L Ciara EDUCATIONAL SPEECH LANGUAGE CLINICIAN Unavailable Unavailable Shahrzad, L Ciara EDUCATIONAL SPEECH LANGUAGE CLINICIAN Unavailable Unavailable Shahrzad, L Ciara EDUCATIONAL SPEECH LANGUAGE CLINICIAN Unavailable Unavailable Shahrzad, L Ciara EDUCATIONAL SPEECH LANGUAGE CLINICIAN Unavailable Unavailable Shahrzad, L Ciara EDUCATIONAL SPEECH LANGUAGE CLINICIAN Unavailable Unavailable Cougler, S Devon EDUCATIONAL SPEECH LANGUAGE CLINICIAN Unavailable Unavailable Cougler, S Devon EDUCATIONAL SPEECH LANGUAGE CLINICIAN Unavailable Unavailable Cougler, S Devon EDUCATIONAL SPEECH LANGUAGE CLINICIAN Unavailable Unavailable Cougler, S Devon EDUCATIONAL SPEECH LANGUAGE CLINICIAN Unavailable Unavailable Cougler, S Devon EDUCATIONAL SPEECH LANGUAGE CLINICIAN Unavailable Unavailable Cougler, S Devon EDUCATIONAL SPEECH LANGUAGE CLINICIAN Unavailable Unavailable Cougler, S Devon EDUCATIONAL SPEECH LANGUAGE CLINICIAN Unavailable Unavailable Cougler, S Devon EDUCATIONAL SPEECH LANGUAGE CLINICIAN Unavailable Unavailable Cougler, S Devon EDUCATIONAL SPEECH LANGUAGE CLINICIAN Unavailable Unavailable Cougler, S Devon EDUCATIONAL SPEECH LANGUAGE CLINICIAN Unavailable Unavailable Cougler, S Devon EDUCATIONAL SPEECH LANGUAGE CLINICIAN Unavailable Unavailable Cougler, S Devon EDUCATIONAL SPEECH LANGUAGE CLINICIAN Unavailable Unavailable Cougler, S Devon EDUCATIONAL SPEECH LANGUAGE CLINICIAN Unavailable Unavailable Cougler, S Devon EDUCATIONAL SPEECH LANGUAGE CLINICIAN Unavailable Unavailable Cougler, S Devon EDUCATIONAL SPEECH LANGUAGE CLINICIAN Unavailable Unavailable Cougler, S Devon EDUCATIONAL SPEECH LANGUAGE CLINICIAN Unavailable Unavailable Cougler, S Devon EDUCATIONAL SPEECH LANGUAGE CLINICIAN Unavailable Unavailable Cougler, S Devon EDUCATIONAL SPEECH LANGUAGE CLINICIAN Unavailable Unavailable Cougler, S Devon EDUCATIONAL SPEECH LANGUAGE CLINICIAN Unavailable Unavailable Cougler, S Devon EDUCATIONAL SPEECH LANGUAGE CLINICIAN Unavailable Unavailable Cougler, S Devon EDUCATIONAL SPEECH LANGUAGE CLINICIAN Unavailable Unavailable Cougler, S Devon EDUCATIONAL SPEECH LANGUAGE CLINICIAN Unavailable Unavailable Cougler, S Devon EDUCATIONAL SPEECH LANGUAGE CLINICIAN Unavailable Unavailable Cougler, S Devon EDUCATIONAL SPEECH LANGUAGE CLINICIAN Unavailable Unavailable Cougler, S Devon EDUCATIONAL SPEECH LANGUAGE CLINICIAN Unavailable Unavailable Cougler, S Devon EDUCATIONAL SPEECH LANGUAGE CLINICIAN Unavailable Unavailable Cougler, S Devon EDUCATIONAL SPEECH LANGUAGE CLINICIAN Unavailable Unavailable Cougler, S Devon EDUCATIONAL SPEECH LANGUAGE CLINICIAN Unavailable Unavailable Cougler, S Devon EDUCATIONAL SPEECH LANGUAGE CLINICIAN Unavailable Unavailable Cougler, S Devon EDUCATIONAL SPEECH LANGUAGE CLINICIAN Unavailable Unavailable Cougler, S Devon EDUCATIONAL SPEECH LANGUAGE CLINICIAN Unavailable Unavailable Cougler, S Devon EDUCATIONAL SPEECH LANGUAGE CLINICIAN Unavailable Unavailable Cougler, S Devon EDUCATIONAL SPEECH LANGUAGE CLINICIAN Unavailable Unavailable Cougler, S Devon EDUCATIONAL SPEECH LANGUAGE CLINICIAN Unavailable Unavailable Cougler, S Devon EDUCATIONAL SPEECH LANGUAGE CLINICIAN Unavailable Unavailable Cougler, S Devon EDUCATIONAL SPEECH LANGUAGE CLINICIAN Unavailable Unavailable Cougler, S Devon EDUCATIONAL SPEECH LANGUAGE CLINICIAN Unavailable Unavailable Cougler, S Devon EDUCATIONAL SPEECH LANGUAGE CLINICIAN Unavailable Unavailable Cougler, S Devon EDUCATIONAL SPEECH LANGUAGE CLINICIAN Unavailable Unavailable Cougler, S Devon EDUCATIONAL SPEECH LANGUAGE CLINICIAN Unavailable Unavailable Cougler, S Devon EDUCATIONAL SPEECH LANGUAGE CLINICIAN Unavailable Unavailable Cougler, S Devon EDUCATIONAL SPEECH LANGUAGE CLINICIAN Unavailable Unavailable Cougler, S Devon EDUCATIONAL SPEECH LANGUAGE CLINICIAN Unavailable Unavailable Cougler, S Devon EDUCATIONAL SPEECH LANGUAGE CLINICIAN Unavailable Unavailable Cougler, S Devon EDUCATIONAL SPEECH LANGUAGE CLINICIAN Unavailable Unavailable JONO, A KATHIA PA Unavailable [...] KATHIA LOPEZ DO Unavailable Unavailable LEE, KATHIA LOPZE DO Unavailable Unavailable LEE, KATHIA LOPEZ DO [...] ARROYO MD Unavailable Unavailable ZEGIL, D VANDANA LOBBY CONCIERGE Unavailable Unavailable ZEGIL, D VANDANA LOBBY CONCIERGE Unavailable Unavailable ZEGIL, D VANDANA LOBBY CONCIERGE Unavailable Unavailable ERICKADEA ROMO MD Unavailable Unavailable [...] ANTECOL, Juanis LAWS MD Unavailable Unavailable ANTECOL, Juains LAWS MD Unavailable Unavailable ANTECOL, Juanis LAWS [...] Juanis LAWS MD Unavailable Unavailable ANTECOL, Juanis LASW MD Unavailable Unavailable ANTECOL, Juanis LAWS MD [...] DEBANIK Unavailable Unavailable KULWANT, DEBANIK Unavailable Unavailable KUWLANT, DEBANIK Unavailable Unavailable KULWANT, DEBANIK Unavailable Unavailable [...] Unavailable Unavailable Nicolasa MCFADDEN MD Unavailable Unavailable KOZMAN, N MAGALIS [...] is protected by Article 27-F of the [facility] Public Health law. If you continue you may have access to information: Regarding HIV / AIDS; Provided by facilities licensed or operated by the [facility] Office of Mental Health; or Provided by the [facility] Office for People With Developmental Disabilities. If such information is present, then the following [facility] mandated warning applies: This information has [...] law may result in a fine or chcf sentence or both. A general authorization for the release of medical or other information is NOT sufficient authorization for further disc losure. Allergies and Adverse Reactions Type Description Substance Reaction Status Data Source(s ) Drug allergy Drug allergy No Known Allergies [facility] Propensity to adverse reactions NO KNOWN ALLERGIES NO KNOWN ALLERGIES [facility] Family History Family Member Name Family Member Gender Family Member Status Date o f Status Description Data Source(s) Unknown Unknown Problem MEDENT ([facility] 1 Unknown Unknown Problem MEDENT ([facility]) Unknown Male Problem MEDENT ([facility] () Unknown Male Problem MEDENT ([facility]) Encounters Encounter Providers Location Date Indications Data Source(s ) Emergency Attender: Maite Hutchinson MDAttender: Maite Hutchinson MD ED-ED 04/30/2021 11:21:00 AM EDT - 04/30/2021 06:25:00 PM EDT CHEST PAIN [facility] CHEST PAIN Patient discharged. [place] [address] [address] 04/29/2021 12:00:00 AM EDT eCW1 ([facility]) Emergency Attender: VANDANA ARCEO [facility] ED-ED 03/29 12:25:00 PM EDT - 04/23/2021 02:00:00 PM EDT FELL HIT HEAD [facility] FELL HIT HEAD Patient discharged. [place] [address] [address] 04/22/2021 12:00:00 AM EDT eCW1 ([facility]) Outpatient Attender: UNKNOWN CPSCAORT-LABEJN 04/18/2021 03:08:00 PM E DT [facility] Outpatient Attender: DEA BARNETT MD ED-LABGH 2020 10:16:00 AM EDT - 04/18/2021 10:17:00 AM EDT COGNITIVE DYSFUNCTION [facility] COGNITIVE DYSFUNCTION Patient discharged. Office Visit Attender: DEA BARNETT MD Main office - [facility] 04/17/2021 01:30:00 PM EDT MEDENT ([facility]er) [place] [address] [address] 04/15/2021 12:00:00 AM EDT eCW1 ([facility]) [place] [address] [address] 04/11/2021 12:00:00 AM EDT eCW1 ([facility]) [place] [address] [address] 04/08/2021 12:00:00 AM EDT eCW1 ([facility]) (MMS 2) Mohs 2 [address] [address] 04/03/2021 12:00:00 AM EDT eCW1 ([facility]) [place] [address] [address] 03/28/2021 12:00:00 AM EDT eCW1 ([facility]) [place] [address] [address] 03/27/2021 12:00:00 AM EDT eCW1 ([facility]) [place] [address] [address] 03/10/2021 12:00:00 AM EDT eCW1 ([facility]) [place] [address] [address] 03/06/2021 12:00:00 AM EDT eCW1 ([facility]) [place] [address] [address] 03/04/2021 12:00:00 AM EDT eCW1 ([facility]) [place] [address] [address] 02/20/2021 12:00:00 AM EDT eCW1 [facility] [place] [address] [address] 02/19/2021 12:00:00 AM EDT eCW1 [facility]) [place] [address] [address] 02/19/2021 12:00:00 AM EDT [facility]CW1 [facility] [place] [address] [address] 02/10/2021 12:00:00 AM EDT eCW1 [facility]) [place] [address] [address] 02/10/2021 12:00:00 AM EDT eCW1 ([facility]) Outpatient Attender: Ciara Hemphill/Mehrdad/Pola/James 01/22/2021 01:30:00 PM EDT MEDENT ([facility]) [place] [address] [address] 01/22/2021 12:00:00 AM EDT eCW1 [facility]) [place] [address] [address] 12/20/2020 12:00:00 AM EDT eCW1 ([facility]) [place] [address] [address] 12/19/2020 12:00:00 AM EDT eCW1 [facility] Office Visit Attender: EUSEBIA BERMUDEZ MD Main Office 11/11/2020 10: 34:00 AM EDT MEDENT ([facility]) [place] [address] [address] 11/07/2020 12:00:00 AM EDT eCW1 ([facility]) [place] [address] [address] 11/06/2020 12:00:00 AM EDT eCW1 ([facility]) [place] [address] [address] 11/05/2020 12:00:00 AM EDT eCW1 ([facility]) [place] [address] [address] 10/31/2020 12:00:00 AM EDT eCW1 ([facility]) [place] [address] [address] 10/24/2020 12:00:00 AM EDT eCW1 ([facility]) Emergency Attender: DINA GOLDEN MD ED-ED 0 10/22/2020 11:00:00 AM EDT - 10/22/2020 01:28:00 PM EDT R LEG PAIN [facility] R LEG PAIN Patient discharged. [place] [address] [address] 10/22/2020 12:00:00 AM EDT eCW1 ([facility]) [place] [address] [address] 10/22/2020 12:00:00 AM EDT eCW1 ([facility]) [place] [address] [address] 09/24/2020 12:00:00 AM EDT eCW1 ([facility]) [place] [address] [address] 09/06/2020 12:00:00 AM EST eCW1 ([facility]) (Cysto1) Urology [address] [place] [address] 09/04/2020 12:00:00 AM EST eCW1 ([facility]) [place] [address] [address] 08/27/2020 12:00:00 AM EST eCW1 ([facility]) Office Visit Attender: EUSEBIA BERMUDEZ MD Main Office 08/26/2020 09: 55:00 AM EST MEDENT ([facility]) [place] [address] [address] 08/22/2020 12:00:00 AM EST eCW1 ([facility]) [place] [address] [address] 08/22/2020 12:00:00 AM EST eCW1 ([facility]) [place] [address] [address] 08/12/2020 12:00:00 AM EST eCW1 ([facility]) [place] [address] [address] 08/12/2020 12:00:00 AM EST eCW1 ([facility]) [place] [address] [address] 07/15/2020 12:00:00 AM EST eCW1 ([facility]) [place] [address] [address] 07/09/2020 12:00:00 AM EST eCW1 ([facility]) [place] [address] [address] 07/09/2020 12:00:00 AM EST eCW1 ([facility]) [place] [address] [address] 05/07/2020 12:00:00 AM EST eCW1 ([facility]) [place] [address] [facility] [place] [address] 04/25/2020 12:00:00 AM EDT eCW1 ([facility]) Outpatient Attender: EUSEBIA BERMUDEZ MD Main Office 04/23/2020 12:00:00 PM EDT MEDENT ([facility]) [place] [address] [address] 04/12/2020 12:00:00 AM EDT eCW1 ([facility]) Inpatient Attender: HOLLIE GAITAN ttender: MAGALIS MCFADDEN MDAttender: JOHN HOWARD DOAdmitter: JOHN HOWARD DOReferrer: Devon Song EDUCATIONAL SPEECH LANGUAGE CLINICIAN [id number] 04/07/2020 11:03:00 AM EDT - 04/10/2020 02:57:00 PM EDT Non-ST elevation (NSTEMI) myocardial infarction [facility] Non-ST elevation (NSTEMI) myocardial inf arction Patient discharged. Emergency Attender: KATHIA DE LA CRUZ PAAttender: Devon jeffrey NP ED-ED 04/06/2020 11:31:00 PM EDT - 04/07/2020 08:56:00 AM EDT CP [facility] Patient discharged. Medications Medication Brand Name [...] 12:00:00 AM EDT ORAL active MEDENT ([facility]) Cephalexin 500 MG Oral Capsule CEPHALEXIN 04/09/2021 12:00:00 AM EDT capsule 20 TAKE ONE CAPSULE BY MOUTH EVERY 12 HOURS FOR 10 DAYS T AURELIO ONE CAPSULE BY MOUTH EVERY 12 HOURS FOR 10 DAYS SOLD: 04/09/2021 [facility] Cephalexin 500 MG Oral Capsule Cephalexin 500 MG 04/09/2021 12:00:0 0 AM EDT 1.0 {capsule} active Cephalexin 500 MG eCW1 ([facility]) Cephalexin 500 MG Oral Capsule Cephalexin 500 MG 04/09/2021 12:00:0 0 AM EDT 1.0 {capsule} active Cephalexin 500 MG eCW1 ([facility]) Cephalexin 500 MG Oral Capsule Cephalexin 500 MG 04/09/2021 12:00:0 0 AM EDT 1.0 {capsule} active Cephalexin 500 MG eCW1 ([facility]) Cephalexin 500 MG Oral Capsule Cephalexin 500 MG 04/09/2021 12:00:0 0 AM EDT 1.0 {capsule} active Cephalexin 500 MG eCW1 ([facility]) Cephalexin 500 MG Oral Capsule Cephalexin 500 MG 04/09/2021 12:00:0 0 AM EDT 1.0 {capsule} active eCW1 ([facility]) Vitamin B12 1000 MCG Vitamin B12 1000 MCG 02/20/2021 12:00:00 AM ED T 1.0 {tablet} active Vitamin B12 1000 MCG eC W1 ([facility]) Vitamin B12 1000 MCG Vitamin B12 1000 MCG 02/20/2021 12:00:00 AM ED T 1.0 {tablet} active Vitamin B12 1000 MCG eC W1 ([facility]) Vitamin B12 1000 MCG Vitamin B12 1000 MCG 02/20/2021 12:00:00 AM ED T 1.0 {tablet} active eCW1 ([facility]) Vitamin B12 1000 MCG Vitamin B12 1000 MCG 02/20/2021 12:00:00 AM ED T 1.0 {tablet} active Vitamin B12 1000 MCG eC W1 ([facility]) Vitamin B12 1000 MCG Vitamin B12 1000 MCG 02/20/2021 12:00:00 AM ED T 1.0 {tablet} active Vitamin B12 1000 MCG eC W1 ([facility]) Vitamin B12 1000 MCG Vitamin B12 1000 MCG 02/20/2021 12:00:00 AM ED T 1.0 {tablet} active Vitamin B12 1000 MCG eC W1 ([facility]) Vitamin B12 1000 MCG Vitamin B12 1000 MCG 02/20/2021 12:00:00 AM ED T 1.0 {tablet} active Vitamin B12 1000 MCG eC W1 ([facility]) Vitamin B12 1000 MCG Vitamin B12 1000 MCG 02/20/2021 12:00:00 AM ED T 1.0 {tablet} active Vitamin B12 1000 MCG eC W1 ([facility]) Vitamin B12 1000 MCG Vitamin B12 1000 MCG 02/20/2021 12:00:00 AM ED T 1.0 {tablet} active Vitamin B12 1000 MCG eC W1 ([facility]) Vitamin B12 1000 MCG Vitamin B12 1000 MCG 02/20/2021 12:00:00 AM ED T 1.0 {tablet} active Vitamin B12 1000 MCG eC W1 ([facility]) Vitamin B12 1000 MCG Vitamin B12 1000 MCG 02/20/2021 12:00:00 AM ED T 1.0 {tablet} active Vitamin B12 1000 MCG eC W1 ([facility]) Vitamin B12 1000 MCG Vitamin B12 1000 MCG 02/20/2021 12:00:00 AM ED T 1.0 {tablet} active Vitamin B12 1000 MCG eC W1 ([facility]) Vitamin B12 1000 MCG Vitamin B12 1000 MCG 02/20/2021 12:00:00 AM ED T 1.0 {tablet} active eCW1 ([facility]) Vitamin B12 1000 MCG Vitamin B12 1000 MCG 02/20/2021 12:00:00 AM ED T 1.0 {tablet} active Vitamin B12 1000 MCG eC W1 ([facility]) Vitamin B12 1000 MCG Vitamin B12 1000 MCG 02/20/2021 12:00:00 AM ED T 1.0 {tablet} active Vitamin B12 1000 MCG eC W1 ([facility]) Vitamin B12 1000 MCG Vitamin B12 1000 MCG 02/20/2021 12:00:00 AM ED T 1.0 {tablet} active Vitamin B12 1000 MCG eC W1 ([facility]) Vitamin B12 1000 MCG Vitamin B12 1000 MCG 02/20/2021 12:00:00 AM ED T 1.0 {tablet} active Vitamin B12 1000 MCG eC W1 ([facility]) Vitamin B12 1000 MCG Vitamin B12 1000 MCG 02/20/2021 12:00:00 AM ED T 1.0 {tablet} active Vitamin B12 1000 MCG eC W1 ([facility]) Vitamin B12 1000 MCG Vitamin B12 1000 MCG 02/20/2021 12:00:00 AM ED T 1.0 {tablet} active Vitamin B12 1000 MCG eC W1 ([facility]) Vitamin B12 1000 MCG Vitamin B12 1000 MCG 02/20/2021 12:00:00 AM ED T 1.0 {tablet} active Vitamin B12 1000 MCG eC W1 ([facility]) Vitamin B12 1000 MCG Vitamin B12 1000 MCG 02/20/2021 12:00:00 AM ED T 1.0 {tablet} active Vitamin B12 1000 MCG eC W1 ([facility]) Vitamin B12 1000 MCG Vitamin B12 1000 MCG 02/20/2021 12:00:00 AM ED T 1.0 {tablet} active Vitamin B12 1000 MCG eC W1 ([facility]) Vitamin B12 1000 MCG Vitamin B12 1000 MCG 02/20/2021 12:00:00 AM ED T 1.0 {tablet} active Vitamin B12 1000 MCG eC W1 ([facility]) Vitamin B12 1000 MCG Vitamin B12 1000 MCG 02/20/2021 12:00:00 AM ED T 1.0 {tablet} active Vitamin B12 1000 MCG eC W1 ([facility]) Vitamin B12 1000 MCG Vitamin B12 1000 MCG 02/20/2021 12:00:00 AM ED T 1.0 {tablet} active Vitamin B12 1000 MCG eC W1 ([facility]) Vitamin B12 1000 MCG Vitamin B12 1000 MCG 02/20/2021 12:00:00 AM ED T 1.0 {tablet} active Vitamin B12 1000 MCG eC W1 ([facility]) Prednisone 20 MG Oral Tablet predniSONE 20 MG predniSONE 20 MG 11/07/2020 12:00:00 AM EDT suspended predn iSONE 20 MG eCW1 ([facility]) Prednisone 20 MG Oral Tablet predniSONE 20 MG predniSONE 20 MG 11/07/2020 12:00:00 AM EDT suspended predn iSONE 20 MG eCW1 ([facility]) Prednisone 20 MG Oral Tablet PredniSONE 20 MG PredniSONE 20 MG 11/07/2020 12:00:00 AM EDT active PredniSO NE 20 MG eCW1 ([facility]) Prednisone 20 MG Oral Tablet predniSONE 20 MG predniSONE 20 MG 11/07/2020 12:00:00 AM EDT suspended predn iSONE 20 MG eCW1 ([facility]) Prednisone 20 MG Oral Tablet predniSONE 20 MG predniSONE 20 MG 11/07/2020 12:00:00 AM EDT suspended predn iSONE 20 MG eCW1 ([facility]) Prednisone 20 MG Oral Tablet predniSONE 20 MG predniSONE 20 MG 11/07/2020 12:00:00 AM EDT suspended predn iSONE 20 MG eCW1 ([facility]) Prednisone 20 MG Oral Tablet predniSONE 20 MG predniSONE 20 MG 11/07/2020 12:00:00 AM EDT suspended predn iSONE 20 MG eCW1 ([facility]) Prednisone 20 MG Oral Tablet predniSONE 20 MG predniSONE 20 MG 11/07/2020 12:00:00 AM EDT suspended predn iSONE 20 MG eCW1 ([facility]) Prednisone 20 MG Oral Tablet predniSONE 20 MG predniSONE 20 MG 11/07/2020 12:00:00 AM EDT suspended predn iSONE 20 MG eCW1 ([facility]) Prednisone 20 MG Oral Tablet predniSONE 20 MG predniSONE 20 MG 11/07/2020 12:00:00 AM EDT suspended predn iSONE 20 MG eCW1 ([facility]) Prednisone 20 MG Oral Tablet predniSONE 20 MG predniSONE 20 MG 11/07/2020 12:00:00 AM EDT suspended predn iSONE 20 MG eCW1 ([facility]) Prednisone 20 MG Oral Tablet predniSONE 20 MG predniSONE 20 MG 11/07/2020 12:00:00 AM EDT suspended predn iSONE 20 MG eCW1 ([facility]) Prednisone 20 MG Oral Tablet predniSONE 20 MG predniSONE 20 MG 11/07/2020 12:00:00 AM EDT suspended eCW1 ([facility]) Prednisone 20 MG Oral Tablet PredniSONE 20 MG PredniSONE 20 MG 11/07/2020 12:00:00 AM EDT active PredniSO NE 20 MG eCW1 ([facility]) Prednisone 20 MG Oral Tablet predniSONE 20 MG predniSONE 20 MG 11/07/2020 12:00:00 AM EDT suspended predn iSONE 20 MG eCW1 ([facility]) Prednisone 20 MG Oral Tablet predniSONE 20 MG predniSONE 20 MG 11/07/2020 12:00:00 AM EDT suspended predn iSONE 20 MG eCW1 ([facility]) Prednisone 20 MG Oral Tablet predniSONE 20 MG predniSONE 20 MG 11/07/2020 12:00:00 AM EDT suspended predn iSONE 20 MG eCW1 ([facility]) Prednisone 20 MG Oral Tablet predniSONE 20 MG predniSONE 20 MG 11/07/2020 12:00:00 AM EDT suspended predn iSONE 20 MG eCW1 ([facility]) 20 mg 11/07/2020 12:00:00 AM EDT tablet [...] EDT suspended predn iSONE 20 MG eCW1 ([facility]) Prednisone 20 MG Oral Tablet predniSONE 20 MG predniSONE 20 MG 11/07/2020 12:00:00 AM EDT suspended predn iSONE 20 MG eCW1 ([facility]) Prednisone 20 MG Oral Tablet predniSONE 20 MG predniSONE 20 MG 11/07/2020 12:00:00 AM EDT suspended predn iSONE 20 MG eCW1 ([facility]) gabapentin 100 MG Oral Capsule Gabapentin 100 MG Gabapentin 100 MG 10/24/2020 12:00:00 AM EDT 1.0 {capsule} suspended Gabapentin 100 MG eCW1 ([facility]) gabapentin 100 MG Oral Capsule Gabapentin 100 MG Gabapentin 100 MG 10/24/2020 12:00:00 AM EDT 1.0 {capsule} suspended Gabapentin 100 MG eCW1 ([facility]) gabapentin 100 MG Oral Capsule Gabapentin 100 MG Gabapentin 100 MG 10/24/2020 12:00:00 AM EDT 1.0 {capsule} suspended Gabapentin 100 MG eCW1 ([facility]) gabapentin 100 MG Oral Capsule Gabapentin 100 MG Gabapentin 100 MG 10/24/2020 12:00:00 AM EDT 1.0 {capsule} suspended Gabapentin 100 MG eCW1 ([facility]) gabapentin 100 MG Oral Capsule Gabapentin 100 MG Gabapentin 100 MG 10/24/2020 12:00:00 AM EDT 1.0 {capsule} suspended Gabapentin 100 MG eCW1 ([facility]) gabapentin 100 MG Oral Capsule Gabapentin 100 MG Gabapentin 100 MG 10/24/2020 12:00:00 AM EDT 1.0 {capsule} suspended eCW1 ([facility]) gabapentin 100 MG Oral Capsule Gabapentin 100 MG Gabapentin 100 MG 10/24/2020 12:00:00 AM EDT 1.0 {capsule} suspended Gabapentin 100 MG [facility] [facility] gabapentin 100 MG Oral Capsule Gabapentin 100 MG Gabapentin 100 MG 10/24/2020 12:00:00 AM EDT 1.0 {capsule} suspended Gabapentin 100 MG eCW1 ([facility]) gabapentin 100 MG Oral Capsule Gabapentin 100 MG Gabapentin 100 MG 10/24/2020 12:00:00 AM EDT 1.0 {capsule} active G abapentin 100 MG eCW1 ([facility]) gabapentin 100 MG Oral Capsule Gabapentin 100 MG Gabapentin 100 MG 10/24/2020 12:00:00 AM EDT 1.0 {capsule} suspended Gabapentin 100 MG eCW1 ([facility]) gabapentin 100 MG Oral Capsule Gabapentin 100 MG Gabapentin 100 MG 10/24/2020 12:00:00 AM EDT 1.0 {capsule} suspended Gabapentin 100 MG eCW1 ([facility]) gabapentin 100 MG Oral Capsule Gabapentin 100 MG Gabapentin 100 MG 10/24/2020 12:00:00 AM EDT 1.0 {capsule} suspended Gabapentin 100 MG eCW1 ([facility]) gabapentin 100 MG Oral Capsule Gabapentin 100 MG Gabapentin 100 MG 10/24/2020 12:00:00 AM EDT 1.0 {capsule} suspended Gabapentin 100 MG eCW1 ([facility]) gabapentin 100 MG Oral Capsule Gabapentin 100 MG Gabapentin 100 MG 10/24/2020 12:00:00 AM EDT 1.0 {capsule} suspended Gabapentin 100 MG eCW1 ([facility]) gabapentin 100 MG Oral Capsule Gabapentin 100 MG Gabapentin 100 MG 10/24/2020 12:00:00 AM EDT 1.0 {capsule} suspended Gabapentin 100 MG eCW1 ([facility]) gabapentin 100 MG Oral Capsule Gabapentin 100 MG Gabapentin 100 MG 10/24/2020 12:00:00 AM EDT 1.0 {capsule} suspended Gabapentin 100 MG eCW1 ([facility]) gabapentin 100 MG Oral Capsule Gabapentin 100 MG Gabapentin 100 MG 10/24/2020 12:00:00 AM EDT 1.0 {capsule} suspended Gabapentin 100 MG eCW1 ([facility]) gabapentin 100 MG Oral Capsule Gabapentin 100 MG Gabapentin 100 MG 10/24/2020 12:00:00 AM EDT 1.0 {capsule} suspended Gabapentin 100 MG eCW1 ([facility]) gabapentin 100 MG Oral Capsule Gabapentin 100 MG Gabapentin 100 MG 10/24/2020 12:00:00 AM EDT 1.0 {capsule} suspended Gabapentin 100 MG eCW1 ([facility]) gabapentin 100 MG Oral Capsule Gabapentin 100 MG Gabapentin 100 MG 10/24/2020 12:00:00 AM EDT 1.0 {capsule} suspended Gabapentin 100 MG eCW1 ([facility]) gabapentin 100 MG Oral Capsule Gabapentin 100 MG Gabapentin 100 MG 10/24/2020 12:00:00 AM EDT 1.0 {capsule} suspended Gabapentin 100 MG eCW1 ([facility]) gabapentin 100 MG Oral Capsule Gabapentin 100 MG Gabapentin 100 MG 10/24/2020 12:00:00 AM EDT 1.0 {capsule} suspended Gabapentin 100 MG eCW1 ([facility]) gabapentin 100 MG Oral Capsule Gabapentin 100 MG Gabapentin 100 MG 10/24/2020 12:00:00 AM EDT 1.0 {capsule} suspended Gabapentin 100 MG eCW1 ([facility]) gabapentin 100 MG Oral Capsule Gabapentin 100 MG Gabapentin 100 MG 10/24/2020 12:00:00 AM EDT 1.0 {capsule} suspended Gabapentin 100 MG eCW1 ([facility]) Diclofenac Sodium 0.01 MG/MG Topical Gel [Voltaren] Voltaren 1 % Voltaren 1 % 08/22/2020 12:00:00 AM EST active Voltaren 1 % eCW1 ([facility]) Diclofenac Sodium 0.01 MG/MG Topical Gel [Voltaren] Voltaren 1 % Voltaren 1 % 08/22/2020 12:00:00 AM EST active Voltaren 1 % eCW1 ([facility]) Diclofenac Sodium 0.01 MG/MG Topical Gel [Voltaren] Voltaren 1 % Voltaren 1 % 08/22/2020 12:00:00 AM EST active Voltaren 1 % eCW1 ([facility]) Diclofenac Sodium 0.01 MG/MG Topical Gel [Voltaren] Voltaren 1 % Voltaren 1 % 08/22/2020 12:00:00 AM EST active Voltaren 1 % eCW1 ([facility]) Diclofenac Sodium 0.01 MG/MG Topical Gel [Voltaren] Voltaren 1 % Voltaren 1 % 08/22/2020 12:00:00 AM EST active Voltaren 1 % eCW1 ([facility]) Diclofenac Sodium 0.01 MG/MG Topical Gel [Voltaren] Voltaren 1 % Voltaren 1 % 08/22/2020 12:00:00 AM EST active Voltaren 1 % eCW1 ([facility]) Diclofenac Sodium 0.01 MG/MG Topical Gel [Voltaren] Voltaren 1 % Voltaren 1 % 08/22/2020 12:00:00 AM EST active Voltaren 1 % eCW1 ([facility]) Diclofenac Sodium 0.01 MG/MG Topical Gel [Voltaren] Voltaren 1 % Voltaren 1 % 08/22/2020 12:00:00 AM EST active Voltaren 1 % eCW1 ([facility]) Diclofenac Sodium 0.01 MG/MG Topical Gel [Voltaren] Voltaren 1 % Voltaren 1 % 08/22/2020 12:00:00 AM EST active Voltaren 1 % eCW1 ([facility]) Diclofenac Sodium 0.01 MG/MG Topical Gel [Voltaren] Voltaren 1 % Voltaren 1 % 08/22/2020 12:00:00 AM EST active Voltaren 1 % eCW1 ([facility]) Diclofenac Sodium 0.01 MG/MG Topical Gel [Voltaren] Voltaren 1 % Voltaren 1 % 08/22/2020 12:00:00 AM EST active Voltaren 1 % eCW1 ([facility]) Diclofenac Sodium 0.01 MG/MG Topical Gel [Voltaren] Voltaren 1 % Voltaren 1 % 08/22/2020 12:00:00 AM EST active Voltaren 1 % eCW1 ([facility]) Diclofenac Sodium 0.01 MG/MG Topical Gel [Voltaren] Voltaren 1 % Voltaren 1 % 08/22/2020 12:00:00 AM EST active Voltaren 1 % eCW1 ([facility]) Diclofenac Sodium 0.01 MG/MG Topical Gel [Voltaren] Voltaren 1 % Voltaren 1 % 08/22/2020 12:00:00 AM EST active Voltaren 1 % eCW1 ([facility]) Diclofenac Sodium 0.01 MG/MG Topical Gel [Voltaren] Voltaren 1 % Voltaren 1 % 08/22/2020 12:00:00 AM EST active Voltaren 1 % eCW1 ([facility]) Diclofenac Sodium 0.01 MG/MG Topical Gel [Voltaren] Voltaren 1 % Voltaren 1 % 08/22/2020 12:00:00 AM EST active Voltaren 1 % eCW1 ([facility]) Diclofenac Sodium 0.01 MG/MG Topical Gel [Voltaren] Voltaren 1 % Voltaren 1 % 08/22/2020 12:00:00 AM EST active Voltaren 1 % eCW1 ([facility]) Diclofenac Sodium 0.01 MG/MG Topical Gel [Voltaren] Voltaren 1 % Voltaren 1 % 08/22/2020 12:00:00 AM EST active eCW1 ([facility]) Diclofenac Sodium 0.01 MG/MG Topical Gel [Voltaren] Voltaren 1 % Voltaren 1 % 08/22/2020 12:00:00 AM EST active Voltaren 1 % eCW1 ([facility]) Diclofenac Sodium 0.01 MG/MG Topical Gel [Voltaren] Voltaren 1 % Voltaren 1 % 08/22/2020 12:00:00 AM EST active Voltaren 1 % eCW1 ([facility]) Diclofenac Sodium 0.01 MG/MG Topical Gel [Voltaren] Voltaren 1 % Voltaren 1 % 08/22/2020 12:00:00 AM EST active Voltaren 1 % eCW1 ([facility]) Diclofenac Sodium 0.01 MG/MG Topical Gel [Voltaren] Voltaren 1 % Voltaren 1 % 08/22/2020 12:00:00 AM EST active Voltaren 1 % eCW1 ([facility]) Diclofenac Sodium 0.01 MG/MG Topical Gel [Voltaren] Voltaren 1 % Voltaren 1 % 08/22/2020 12:00:00 AM EST active Voltaren 1 % eCW1 ([facility]) Voltaren 1 % UNK 08/22/2020 12:00:00 AM EST activ e Voltaren 1 % eCW1 ([facility]) Diclofenac Sodium 0.01 MG/MG Topical Gel [Voltaren] Voltaren 1 % Voltaren 1 % 08/22/2020 12:00:00 AM EST active Voltaren 1 % eCW1 ([facility]) 1 % 08/22/2020 12:00:00 AM EST gel 100 APPLY 4 GRAMS TO [employer] EVERY 8 HOURS NEEDED FOR 10 DAYS APPLY 4 GRAMS TO [employer] EVERY 8 HOURS NEEDED FOR 10 DAYS SOLD: 08/23/2020 [facility] Diclofenac Sodium 0.01 MG/MG Topical Gel [Voltaren] Voltaren 1 % Voltaren 1 % 08/22/2020 12:00:00 AM EST active Voltaren 1 % eCW1 ([facility]) Voltaren 1 % UNK 08/22/2020 12:00:00 AM EST activ e Voltaren 1 % eCW1 ([facility]) Diclofenac Sodium 0.01 MG/MG Topical Gel [Voltaren] Voltaren 1 % Voltaren 1 % 08/22/2020 12:00:00 AM EST active Voltaren 1 % eCW1 ([facility]) Diclofenac Sodium 0.01 MG/MG Topical Gel [Voltaren] Voltaren 1 % Voltaren 1 % 08/22/2020 12:00:00 AM EST active Voltaren 1 % eCW1 ([facility]) Diclofenac Sodium 0.01 MG/MG Topical Gel [Voltaren] Voltaren 1 % Voltaren 1 % 08/22/2020 12:00:00 AM EST active Voltaren 1 % eCW1 ([facility]) Diclofenac Sodium 0.01 MG/MG Topical Gel [Voltaren] Voltaren 1 % Voltaren 1 % 08/22/2020 12:00:00 AM EST active Voltaren 1 % eCW1 ([facility]) Diclofenac Sodium 0.01 MG/MG Topical Gel [Voltaren] Voltaren 1 % Voltaren 1 % 08/22/2020 12:00:00 AM EST active Voltaren 1 % eCW1 ([facility]) 75 mg 08/14/2020 12:00:00 AM EST tablet 90 TAKE ONE TABLET BY MOUTH EVERY DAY TAKE ONE TABLET BY MOUTH EVERY DAY SOLD: 08/14/2020 [facility] cefdinir 300 MG Oral Capsule Cefdinir 300 MG Cefdinir 300 MG 07/15/2020 12:00:00 AM EST suspended Cefdinir 300 MG eCW1 ([facility]) cefdinir 300 MG Oral Capsule Cefdinir 300 MG Cefdinir 300 MG 07/15/2020 12:00:00 AM EST suspended Cefdinir 300 MG eCW1 ([facility]) cefdinir 300 MG Oral Capsule Cefdinir 300 MG Cefdinir 300 MG 07/15/2020 12:00:00 AM EST suspended Cefdinir 300 MG eCW1 ([facility]) cefdinir 300 MG Oral Capsule Cefdinir 300 MG Cefdinir 300 MG 07/15/2020 12:00:00 AM EST suspended Cefdinir 300 MG eCW1 ([facility]) cefdinir 300 MG Oral Capsule Cefdinir 300 MG Cefdinir 300 MG 07/15/2020 12:00:00 AM EST suspended Cefdinir 300 MG eCW1 ([facility]) 300 mg 07/15/2020 12:00:00 AM EST capsule 20 TAKE ONE CAPSULE BY MOUTH TWICE A DAY FOR 10 DAYS TAKE ONE CAPSULE BY MOUTH TWICE A DAY FOR 10 DAYS SOLD : 07/15/2020 [facility] cefdinir 300 MG Oral Capsule Cefdinir 300 MG Cefdinir 300 MG 07/15/2020 12:00:00 AM EST suspended Cefdinir 300 MG eCW1 ([facility]) cefdinir 300 MG Oral Capsule Cefdinir 300 MG Cefdinir 300 MG 07/15/2020 12:00:00 AM EST suspended Cefdinir 300 MG eCW1 ([facility]) cefdinir 300 MG Oral Capsule Cefdinir 300 MG Cefdinir 300 MG 07/15/2020 12:00:00 AM EST suspended Cefdinir 300 MG eCW1 ([facility]) cefdinir 300 MG Oral Capsule Cefdinir 300 MG Cefdinir 300 MG 07/15/2020 12:00:00 AM EST suspended Cefdinir 300 MG eCW1 ([facility]) cefdinir 300 MG Oral Capsule Cefdinir 300 MG Cefdinir 300 MG 07/15/2020 12:00:00 AM EST suspended Cefdinir 300 MG eCW1 ([facility]) cefdinir 300 MG Oral Capsule Cefdinir 300 MG Cefdinir 300 MG 07/15/2020 12:00:00 AM EST suspended Cefdinir 300 MG eCW1 ([facility]) cefdinir 300 MG Oral Capsule Cefdinir 300 MG Cefdinir 300 MG 07/15/2020 12:00:00 AM EST suspended Cefdinir 300 MG eCW1 ([facility]) cefdinir 300 MG Oral Capsule Cefdinir 300 MG Cefdinir 300 MG 07/15/2020 12:00:00 AM EST suspended Cefdinir 300 MG eCW1 ([facility]) cefdinir 300 MG Oral Capsule Cefdinir 300 MG Cefdinir 300 MG 07/15/2020 12:00:00 AM EST suspended Cefdinir 300 MG eCW1 ([facility]) cefdinir 300 MG Oral Capsule Cefdinir 300 MG Cefdinir 300 MG 07/15/2020 12:00:00 AM EST suspended Cefdinir 300 MG eCW1 ([facility]) cefdinir 300 MG Oral Capsule Cefdinir 300 MG Cefdinir 300 MG 07/15/2020 12:00:00 AM EST suspended Cefdinir 300 MG eCW1 ([facility]) cefdinir 300 MG Oral Capsule Cefdinir 300 MG Cefdinir 300 MG 07/15/2020 12:00:00 AM EST suspended Cefdinir 300 MG eCW1 ([facility]) cefdinir 300 MG Oral Capsule Cefdinir 300 MG Cefdinir 300 MG 07/15/2020 12:00:00 AM EST suspended Cefdinir 300 MG eCW1 ([facility]) cefdinir 300 MG Oral Capsule Cefdinir 300 MG Cefdinir 300 MG 07/15/2020 12:00:00 AM EST suspended Cefdinir 300 MG eCW1 ([facility]) cefdinir 300 MG Oral Capsule Cefdinir 300 MG Cefdinir 300 MG 07/15/2020 12:00:00 AM EST suspended Cefdinir 300 MG eCW1 ([facility]) cefdinir 300 MG Oral Capsule Cefdinir 300 MG Cefdinir 300 MG 07/15/2020 12:00:00 AM EST suspended Cefdinir 300 MG eCW1 ([facility]) cefdinir 300 MG Oral Capsule Cefdinir 300 MG Cefdinir 300 MG 07/15/2020 12:00:00 AM EST suspended Cefdinir 300 MG eCW1 ([facility]) cefdinir 300 MG Oral Capsule Cefdinir 300 MG Cefdinir 300 MG 07/15/2020 12:00:00 AM EST suspended Cefdinir 300 MG eCW1 ([facility]) cefdinir 300 MG Oral Capsule Cefdinir 300 MG Cefdinir 300 MG 07/15/2020 12:00:00 AM EST suspended Cefdinir 300 MG eCW1 ([facility]) cefdinir 300 MG Oral Capsule Cefdinir 300 MG Cefdinir 300 MG 07/15/2020 12:00:00 AM EST active Cefdinir 300 MG eCW1 ([facility]) cefdinir 300 MG Oral Capsule Cefdinir 300 MG Cefdinir 300 MG 07/15/2020 12:00:00 AM EST suspended Cefdinir 300 MG eCW1 ([facility]) cefdinir 300 MG Oral Capsule Cefdinir 300 MG Cefdinir 300 MG 07/15/2020 12:00:00 AM EST suspended Cefdinir 300 MG eCW1 ([facility]) cefdinir 300 MG Oral Capsule Cefdinir 300 MG Cefdinir 300 MG 07/15/2020 12:00:00 AM EST suspended Cefdinir 300 MG eCW1 ([facility]) cefdinir 300 MG Oral Capsule Cefdinir 300 MG Cefdinir 300 MG 07/15/2020 12:00:00 AM EST suspended Cefdinir 300 MG eCW1 ([facility]) cefdinir 300 MG Oral Capsule Cefdinir 300 MG Cefdinir 300 MG 07/15/2020 12:00:00 AM EST suspended Cefdinir 300 MG eCW1 ([facility]) cefdinir 300 MG Oral Capsule Cefdinir 300 MG Cefdinir 300 MG 07/15/2020 12:00:00 AM EST suspended eCW1 ( [facility]) cefdinir 300 MG Oral Capsule Cefdinir 300 MG Cefdinir 300 MG 07/15/2020 12:00:00 AM EST suspended Cefdinir 300 MG eCW1 ([facility]) cefdinir 300 MG Oral Capsule Cefdinir 300 MG Cefdinir 300 MG 07/15/2020 12:00:00 AM EST suspended Cefdinir 300 MG eCW1 ([facility]) cefdinir 300 MG Oral Capsule Cefdinir 300 MG Cefdinir 300 MG 07/15/2020 12:00:00 AM EST suspended Cefdinir 300 MG eCW1 ([facility]) cefdinir 300 MG Oral Capsule Cefdinir 300 MG Cefdinir 300 MG 07/15/2020 12:00:00 AM EST suspended Cefdinir 300 MG eCW1 ([facility]) atorvastatin 40 MG Oral Tablet Atorvastatin Calcium 40 MG Atorvastatin Calcium 40 MG 05/07/2020 12:00:00 AM EST 1.0 {tablet} activ e Atorvastatin Calcium 40 MG eCW1 ([facility]) clopidogrel 75 MG Oral Tablet Clopidogrel Bisulfate 75 MG Clopidogrel Bisulfate 75 MG 05/07/2020 12:00:00 AM EST 1.0 {tablet} activ e Clopidogrel Bisulfate 75 MG eCW1 ([facility]) clopidogrel 75 MG Oral Tablet Clopidogrel Bisulfate 75 MG Clopidogrel Bisulfate 75 MG 05/07/2020 12:00:00 AM EST 1.0 {tablet} activ e Clopidogrel Bisulfate 75 MG eCW1 ([facility]) clopidogrel 75 MG Oral Tablet Clopidogrel Bisulfate 75 MG Clopidogrel Bisulfate 75 MG 05/07/2020 12:00:00 AM EST 1.0 {tablet} activ e Clopidogrel Bisulfate 75 MG eCW1 ([facility]) Aspirin 81 MG Delayed Release Oral Tablet Aspirin 81 MG 05/07/2020 12:00:00 AM EST 1.0 {tablet} active Aspirin 81 MG eCW1 ([facility]) atorvastatin 40 MG Oral Tablet Atorvastatin Calcium 40 MG Atorvastatin Calcium 40 MG 05/07/2020 12:00:00 AM EST 1.0 {tablet} activ e Atorvastatin Calcium 40 MG eCW1 ([facility]) atorvastatin 40 MG Oral Tablet Atorvastatin Calcium 40 MG Atorvastatin Calcium 40 MG 05/07/2020 12:00:00 AM EST 1.0 {tablet} activ e Atorvastatin Calcium 40 MG eCW1 ([facility]) Aspirin 81 MG Delayed Release Oral Tablet Aspirin 81 MG 05/07/2020 12:00:00 AM EST 1.0 {tablet} active Aspirin 81 MG eCW1 ([facility]) clopidogrel 75 MG Oral Tablet Clopidogrel Bisulfate 75 MG Clopidogrel Bisulfate 75 MG 05/07/2020 12:00:00 AM EST 1.0 {tablet} activ e Clopidogrel Bisulfate 75 MG eCW1 ([facility]) atorvastatin 40 MG Oral Tablet Atorvastatin Calcium 40 MG Atorvastatin Calcium 40 MG 05/07/2020 12:00:00 AM EST 1.0 {tablet} activ e Atorvastatin Calcium 40 MG eCW1 ([facility]) atorvastatin 40 MG Oral Tablet Atorvastatin Calcium 40 MG Atorvastatin Calcium 40 MG 05/07/2020 12:00:00 AM EST 1.0 {tablet} activ e Atorvastatin Calcium 40 MG eCW1 ([facility]) atorvastatin 40 MG Oral Tablet Atorvastatin Calcium 40 MG Atorvastatin Calcium 40 MG 05/07/2020 12:00:00 AM EST 1.0 {tablet} activ e Atorvastatin Calcium 40 MG eCW1 ([facility]) clopidogrel 75 MG Oral Tablet Clopidogrel Bisulfate 75 MG Clopidogrel Bisulfate 75 MG 05/07/2020 12:00:00 AM EST 1.0 {tablet} activ e Clopidogrel Bisulfate 75 MG eCW1 ([facility]) atorvastatin 40 MG Oral Tablet Atorvastatin Calcium 40 MG Atorvastatin Calcium 40 MG 05/07/2020 12:00:00 AM EST 1.0 {tablet} activ e Atorvastatin Calcium 40 MG eCW1 ([facility]) clopidogrel 75 MG Oral Tablet Clopidogrel Bisulfate 75 MG Clopidogrel Bisulfate 75 MG 05/07/2020 12:00:00 AM EST 1.0 {tablet} activ e Clopidogrel Bisulfate 75 MG eCW1 ([facility]) Aspirin 81 MG Delayed Release Oral Tablet Aspirin 81 MG 05/07/2020 12:00:00 AM EST 1.0 {tablet} active Aspirin 81 MG eCW1 ([facility]) atorvastatin 40 MG Oral Tablet Atorvastatin Calcium 40 MG Atorvastatin Calcium 40 MG 05/07/2020 12:00:00 AM EST 1.0 {tablet} activ e Atorvastatin Calcium 40 MG eCW1 ([facility]) Aspirin 81 MG Delayed Release Oral Tablet Aspirin 81 MG 05/07/2020 12:00:00 AM EST 1.0 {tablet} active Aspirin 81 MG eCW1 ([facility]) Aspirin 81 MG Delayed Release Oral Tablet Aspirin 81 MG 05/07/2020 12:00:00 AM EST 1.0 {tablet} active Aspirin 81 MG eCW1 ([facility]) Aspirin 81 MG Delayed Release Oral Tablet Aspirin 81 MG 05/07/2020 12:00:00 AM EST 1.0 {tablet} active Aspirin 81 MG eCW1 ([facility]) clopidogrel 75 MG Oral Tablet Clopidogrel Bisulfate 75 MG Clopidogrel Bisulfate 75 MG 05/07/2020 12:00:00 AM EST 1.0 {tablet} activ e Clopidogrel Bisulfate 75 MG eCW1 ([facility]) clopidogrel 75 MG Oral Tablet Clopidogrel Bisulfate 75 MG Clopidogrel Bisulfate 75 MG 05/07/2020 12:00:00 AM EST 1.0 {tablet} activ e Clopidogrel Bisulfate 75 MG eCW1 ([facility]) clopidogrel 75 MG Oral Tablet Clopidogrel Bisulfate 75 MG Clopidogrel Bisulfate 75 MG 05/07/2020 12:00:00 AM EST 1.0 {tablet} activ e Clopidogrel Bisulfate 75 MG eCW1 ([facility]) Aspirin 81 MG Delayed Release Oral Tablet Aspirin 81 MG 05/07/2020 12:00:00 AM EST 1.0 {tablet} active Aspirin 81 MG eCW1 ([facility]) atorvastatin 40 MG Oral Tablet Atorvastatin Calcium 40 MG Atorvastatin Calcium 40 MG 05/07/2020 12:00:00 AM EST 1.0 {tablet} activ e Atorvastatin Calcium 40 MG eCW1 ([facility]) clopidogrel 75 MG Oral Tablet Clopidogrel Bisulfate 75 MG Clopidogrel Bisulfate 75 MG 05/07/2020 12:00:00 AM EST 1.0 {tablet} activ e Clopidogrel Bisulfate 75 MG eCW1 ([facility]) Aspirin 81 MG Delayed Release Oral Tablet Aspirin 81 MG 05/07/2020 12:00:00 AM EST 1.0 {tablet} active Aspirin 81 MG eCW1 ([facility]) atorvastatin 40 MG Oral Tablet Atorvastatin Calcium 40 MG Atorvastatin Calcium 40 MG 05/07/2020 12:00:00 AM EST 1.0 {tablet} activ e Atorvastatin Calcium 40 MG eCW1 ([facility]) Aspirin 81 MG Delayed Release Oral Tablet Aspirin 81 MG 05/07/2020 12:00:00 AM EST 1.0 {tablet} active eCW1 ([facility]) Aspirin 81 MG Delayed Release Oral Tablet Aspirin 81 MG 05/07/2020 12:00:00 AM EST 1.0 {tablet} active Aspirin 81 MG eCW1 ([facility]) atorvastatin 40 MG Oral Tablet Atorvastatin Calcium 40 MG Atorvastatin Calcium 40 MG 05/07/2020 12:00:00 AM EST 1.0 {tablet} activ e Atorvastatin Calcium 40 MG eCW1 ([facility]) clopidogrel 75 MG Oral Tablet Clopidogrel Bisulfate 75 MG Clopidogrel Bisulfate 75 MG 05/07/2020 12:00:00 AM EST 1.0 {tablet} activ e Clopidogrel Bisulfate 75 MG eCW1 ([facility]) Aspirin 81 MG Delayed Release Oral Tablet Aspirin 81 MG 05/07/2020 12:00:00 AM EST 1.0 {tablet} active Aspirin 81 MG eCW1 ([facility]) clopidogrel 75 MG Oral Tablet Clopidogrel Bisulfate 75 MG Clopidogrel Bisulfate 75 MG 05/07/2020 12:00:00 AM EST 1.0 {tablet} activ e Clopidogrel Bisulfate 75 MG eCW1 ([facility]) atorvastatin 40 MG Oral Tablet Atorvastatin Calcium 40 MG Atorvastatin Calcium 40 MG 05/07/2020 12:00:00 AM EST 1.0 {tablet} activ e Atorvastatin Calcium 40 MG eCW1 ([facility]) atorvastatin 40 MG Oral Tablet Atorvastatin Calcium 40 MG Atorvastatin Calcium 40 MG 05/07/2020 12:00:00 AM EST 1.0 {tablet} activ e Atorvastatin Calcium 40 MG eCW1 ([facility]) atorvastatin 40 MG Oral Tablet Atorvastatin Calcium 40 MG Atorvastatin Calcium 40 MG 05/07/2020 12:00:00 AM EST 1.0 {tablet} activ e Atorvastatin Calcium 40 MG eCW1 ([facility]) Aspirin 81 MG Delayed Release Oral Tablet Aspirin 81 MG 05/07/2020 12:00:00 AM EST 1.0 {tablet} active Aspirin 81 MG eCW1 ([facility]) Aspirin 81 MG Delayed Release Oral Tablet Aspirin 81 MG 05/07/2020 12:00:00 AM EST 1.0 {tablet} active Aspirin 81 MG eCW1 ([facility]) Aspirin 81 MG Delayed Release Oral Tablet Aspirin 81 MG 05/07/2020 12:00:00 AM EST 1.0 {tablet} active Aspirin 81 MG eCW1 ([facility]) atorvastatin 40 MG Oral Tablet Atorvastatin Calcium 40 MG Atorvastatin Calcium 40 MG 05/07/2020 12:00:00 AM EST 1.0 {tablet} activ e Atorvastatin Calcium 40 MG eCW1 ([facility]) atorvastatin 40 MG Oral Tablet Atorvastatin Calcium 40 MG Atorvastatin Calcium 40 MG 05/07/2020 12:00:00 AM EST 1.0 {tablet} activ e Atorvastatin Calcium 40 MG eCW1 ([facility]) clopidogrel 75 MG Oral Tablet Clopidogrel Bisulfate 75 MG Clopidogrel Bisulfate 75 MG 05/07/2020 12:00:00 AM EST 1.0 {tablet} activ e Clopidogrel Bisulfate 75 MG eCW1 ([facility]) 75 mg 05/07/2020 12:00:00 AM EST tablet 90 TAKE ONE TABLET BY MOUTH EVERY DAY TAKE ONE TABLET BY MOUTH EVERY DAY SOLD: 05/07/2020 [facility] atorvastatin 40 MG Oral Tablet Atorvastatin Calcium 40 MG Atorvastatin Calcium 40 MG 05/07/2020 12:00:00 AM EST 1.0 {tablet} activ e Atorvastatin Calcium 40 MG eCW1 ([facility]) Aspirin 81 MG Delayed Release Oral Tablet Aspirin 81 MG 05/07/2020 12:00:00 AM EST 1.0 {tablet} active Aspirin 81 MG eCW1 ([facility]) atorvastatin 40 MG Oral Tablet Atorvastatin Calcium 40 MG Atorvastatin Calcium 40 MG 05/07/2020 12:00:00 AM EST 1.0 {tablet} activ e Atorvastatin Calcium 40 MG eCW1 ([facility]) clopidogrel 75 MG Oral Tablet Clopidogrel Bisulfate 75 MG Clopidogrel Bisulfate 75 MG 05/07/2020 12:00:00 AM EST 1.0 {tablet} activ e Clopidogrel Bisulfate 75 MG eCW1 ([facility]) clopidogrel 75 MG Oral Tablet Clopidogrel Bisulfate 75 MG Clopidogrel Bisulfate 75 MG 05/07/2020 12:00:00 AM EST 1.0 {tablet} activ e Clopidogrel Bisulfate 75 MG eCW1 ([facility]) atorvastatin 40 MG Oral Tablet Atorvastatin Calcium 40 MG Atorvastatin Calcium 40 MG 05/07/2020 12:00:00 AM EST 1.0 {tablet} activ e Atorvastatin Calcium 40 MG eCW1 ([facility]) clopidogrel 75 MG Oral Tablet Clopidogrel Bisulfate 75 MG Clopidogrel Bisulfate 75 MG 05/07/2020 12:00:00 AM EST 1.0 {tablet} activ e Clopidogrel Bisulfate 75 MG eCW1 ([facility]) Aspirin 81 MG Delayed Release Oral Tablet Aspirin 81 MG 05/07/2020 12:00:00 AM EST 1.0 {tablet} active Aspirin 81 MG eCW1 ([facility]) Aspirin 81 MG Delayed Release Oral Tablet Aspirin 81 MG 05/07/2020 12:00:00 AM EST 1.0 {tablet} active Aspirin 81 MG eCW1 ([facility]) Aspirin 81 MG Delayed Release Oral Tablet Aspirin 81 MG 05/07/2020 12:00:00 AM EST 1.0 {tablet} active Aspirin 81 MG eCW1 ([facility]) Aspirin 81 MG Delayed Release Oral Tablet Aspirin 81 MG 05/07/2020 12:00:00 AM EST 1.0 {tablet} active Aspirin 81 MG eCW1 ([facility]) atorvastatin 40 MG Oral Tablet Atorvastatin Calcium 40 MG Atorvastatin Calcium 40 MG 05/07/2020 12:00:00 AM EST 1.0 {tablet} activ e Atorvastatin Calcium 40 MG eCW1 ([facility]) atorvastatin 40 MG Oral Tablet Atorvastatin Calcium 40 MG Atorvastatin Calcium 40 MG 05/07/2020 12:00:00 AM EST 1.0 {tablet} activ e Atorvastatin Calcium 40 MG eCW1 ([facility]) atorvastatin 40 MG Oral Tablet Atorvastatin Calcium 40 MG Atorvastatin Calcium 40 MG 05/07/2020 12:00:00 AM EST 1.0 {tablet} activ e Atorvastatin Calcium 40 MG eCW1 ([facility]) Aspirin 81 MG Delayed Release Oral Tablet Aspirin 81 MG 05/07/2020 12:00:00 AM EST 1.0 {tablet} active Aspirin 81 MG eCW1 ([facility]) clopidogrel 75 MG Oral Tablet Clopidogrel Bisulfate 75 MG Clopidogrel Bisulfate 75 MG 05/07/2020 12:00:00 AM EST 1.0 {tablet} activ e Clopidogrel Bisulfate 75 MG eCW1 ([facility]) Aspirin 81 MG Delayed Release Oral Tablet Aspirin 81 MG 05/07/2020 12:00:00 AM EST 1.0 {tablet} active Aspirin 81 MG eCW1 ([facility]) atorvastatin 40 MG Oral Tablet Atorvastatin Calcium 40 MG Atorvastatin Calcium 40 MG 05/07/2020 12:00:00 AM EST 1.0 {tablet} activ e Atorvastatin Calcium 40 MG eCW1 ([facility]) atorvastatin 40 MG Oral Tablet Atorvastatin Calcium 40 MG Atorvastatin Calcium 40 MG 05/07/2020 12:00:00 AM EST 1.0 {tablet} activ e Atorvastatin Calcium 40 MG eCW1 ([facility]) atorvastatin 40 MG Oral Tablet Atorvastatin Calcium 40 MG Atorvastatin Calcium 40 MG 05/07/2020 12:00:00 AM EST 1.0 {tablet} activ e Atorvastatin Calcium 40 MG eCW1 ([facility]) atorvastatin 40 MG Oral Tablet Atorvastatin Calcium 40 MG Atorvastatin Calcium 40 MG 05/07/2020 12:00:00 AM EST 1.0 {tablet} activ e Atorvastatin Calcium 40 MG eCW1 ([facility]) clopidogrel 75 MG Oral Tablet Clopidogrel Bisulfate 75 MG Clopidogrel Bisulfate 75 MG 05/07/2020 12:00:00 AM EST 1.0 {tablet} activ e Clopidogrel Bisulfate 75 MG eCW1 ([facility]) clopidogrel 75 MG Oral Tablet Clopidogrel Bisulfate 75 MG Clopidogrel Bisulfate 75 MG 05/07/2020 12:00:00 AM EST 1.0 {tablet} activ e Clopidogrel Bisulfate 75 MG eCW1 ([facility]) Aspirin 81 MG Delayed Release Oral Tablet Aspirin 81 MG 05/07/2020 12:00:00 AM EST 1.0 {tablet} active Aspirin 81 MG eCW1 ([facility]) clopidogrel 75 MG Oral Tablet Clopidogrel Bisulfate 75 MG Clopidogrel Bisulfate 75 MG 05/07/2020 12:00:00 AM EST 1.0 {tablet} activ e Clopidogrel Bisulfate 75 MG eCW1 ([facility]) Aspirin 81 MG Delayed Release Oral Tablet Aspirin 81 MG 05/07/2020 12:00:00 AM EST 1.0 {tablet} active Aspirin 81 MG eCW1 ([facility]) clopidogrel 75 MG Oral Tablet Clopidogrel Bisulfate 75 MG Clopidogrel Bisulfate 75 MG 05/07/2020 12:00:00 AM EST 1.0 {tablet} activ e Clopidogrel Bisulfate 75 MG eCW1 ([facility]) Aspirin 81 MG Delayed Release Oral Tablet Aspirin 81 MG 05/07/2020 12:00:00 AM EST 1.0 {tablet} active Aspirin 81 MG eCW1 ([facility]) atorvastatin 40 MG Oral Tablet Atorvastatin Calcium 40 MG Atorvastatin Calcium 40 MG 05/07/2020 12:00:00 AM EST 1.0 {tablet} activ e Atorvastatin Calcium 40 MG eCW1 ([facility]) clopidogrel 75 MG Oral Tablet Clopidogrel Bisulfate 75 MG Clopidogrel Bisulfate 75 MG 05/07/2020 12:00:00 AM EST 1.0 {tablet} activ e Clopidogrel Bisulfate 75 MG eCW1 ([facility]) atorvastatin 40 MG Oral Tablet Atorvastatin Calcium 40 MG Atorvastatin Calcium 40 MG 05/07/2020 12:00:00 AM EST 1.0 {tablet} activ e Atorvastatin Calcium 40 MG eCW1 ([facility]) Aspirin 81 MG Delayed Release Oral Tablet Aspirin 81 MG 05/07/2020 12:00:00 AM EST 1.0 {tablet} active Aspirin 81 MG eCW1 ([facility]) Aspirin 81 MG Delayed Release Oral Tablet Aspirin 81 MG 05/07/2020 12:00:00 AM EST 1.0 {tablet} active Aspirin 81 MG eCW1 ([facility]) Aspirin 81 MG Delayed Release Oral Tablet Aspirin 81 MG 05/07/2020 12:00:00 AM EST 1.0 {tablet} active Aspirin 81 MG eCW1 ([facility]) clopidogrel 75 MG Oral Tablet Clopidogrel Bisulfate 75 MG Clopidogrel Bisulfate 75 MG 05/07/2020 12:00:00 AM EST 1.0 {tablet} activ e Clopidogrel Bisulfate 75 MG eCW1 ([facility]) Aspirin 81 MG Delayed Release Oral Tablet Aspirin 81 MG 05/07/2020 12:00:00 AM EST 1.0 {tablet} active Aspirin 81 MG eCW1 ([facility]) Aspirin 81 MG Delayed Release Oral Tablet Aspirin 81 MG 05/07/2020 12:00:00 AM EST 1.0 {tablet} active Aspirin 81 MG eCW1 ([facility]) Aspirin 81 MG Delayed Release Oral Tablet Aspirin 81 MG 05/07/2020 12:00:00 AM EST 1.0 {tablet} active Aspirin 81 MG eCW1 ([facility]) Aspirin 81 MG Delayed Release Oral Tablet Aspirin 81 MG 05/07/2020 12:00:00 AM EST 1.0 {tablet} active Aspirin 81 MG eCW1 ([facility]) clopidogrel 75 MG Oral Tablet Clopidogrel Bisulfate 75 MG Clopidogrel Bisulfate 75 MG 05/07/2020 12:00:00 AM EST 1.0 {tablet} activ e Clopidogrel Bisulfate 75 MG eCW1 ([facility]) clopidogrel 75 MG Oral Tablet Clopidogrel Bisulfate 75 MG Clopidogrel Bisulfate 75 MG 05/07/2020 12:00:00 AM EST 1.0 {tablet} activ e Clopidogrel Bisulfate 75 MG eCW1 ([facility]) Aspirin 81 MG Delayed Release Oral Tablet Aspirin 81 MG 05/07/2020 12:00:00 AM EST 1.0 {tablet} active Aspirin 81 MG eCW1 ([facility]) clopidogrel 75 MG Oral Tablet Clopidogrel Bisulfate 75 MG Clopidogrel Bisulfate 75 MG 05/07/2020 12:00:00 AM EST 1.0 {tablet} activ e Clopidogrel Bisulfate 75 MG eCW1 ([facility]) atorvastatin 40 MG Oral Tablet Atorvastatin Calcium 40 MG Atorvastatin Calcium 40 MG 05/07/2020 12:00:00 AM EST 1.0 {tablet} activ e Atorvastatin Calcium 40 MG eCW1 ([facility]) atorvastatin 40 MG Oral Tablet ATORVASTATIN CALCIUM 05/07/2020 1 2:00:00 AM EST tablet 90 TAKE ONE TABLET BY MOUTH EVERY D AY TAKE ONE TABLET BY MOUTH EVERY DAY SOLD: 05/07/2020 [facility] clopidogrel 75 MG Oral Tablet Clopidogrel Bisulfate 75 MG Clopidogrel Bisulfate 75 MG 05/07/2020 12:00:00 AM EST 1.0 {tablet} activ e Clopidogrel Bisulfate 75 MG eCW1 ([facility]) clopidogrel 75 MG Oral Tablet Clopidogrel Bisulfate 75 MG Clopidogrel Bisulfate 75 MG 05/07/2020 12:00:00 AM EST 1.0 {tablet} activ e Clopidogrel Bisulfate 75 MG eCW1 ([facility]) atorvastatin 40 MG Oral Tablet Atorvastatin Calcium 40 MG Atorvastatin Calcium 40 MG 05/07/2020 12:00:00 AM EST 1.0 {tablet} activ e Atorvastatin Calcium 40 MG eCW1 ([facility]) atorvastatin 40 MG Oral Tablet Atorvastatin Calcium 40 MG Atorvastatin Calcium 40 MG 05/07/2020 12:00:00 AM EST 1.0 {tablet} activ e Atorvastatin Calcium 40 MG eCW1 ([facility]) clopidogrel 75 MG Oral Tablet Clopidogrel Bisulfate 75 MG Clopidogrel Bisulfate 75 MG 05/07/2020 12:00:00 AM EST 1.0 {tablet} activ e Clopidogrel Bisulfate 75 MG eCW1 ([facility]) Aspirin 81 MG Delayed Release Oral Tablet Aspirin 81 MG 05/07/2020 12:00:00 AM EST 1.0 {tablet} active Aspirin 81 MG eCW1 ([facility]) clopidogrel 75 MG Oral Tablet Clopidogrel Bisulfate 75 MG Clopidogrel Bisulfate 75 MG 05/07/2020 12:00:00 AM EST 1.0 {tablet} activ e Clopidogrel Bisulfate 75 MG eCW1 ([facility]) clopidogrel 75 MG Oral Tablet Clopidogrel Bisulfate 75 MG Clopidogrel Bisulfate 75 MG 05/07/2020 12:00:00 AM EST 1.0 {tablet} activ e Clopidogrel Bisulfate 75 MG eCW1 ([facility]) clopidogrel 75 MG Oral Tablet Clopidogrel Bisulfate 75 MG Clopidogrel Bisulfate 75 MG 05/07/2020 12:00:00 AM EST 1.0 {tablet} activ e Clopidogrel Bisulfate 75 MG eCW1 ([facility]) atorvastatin 40 MG Oral Tablet Atorvastatin Calcium 40 MG Atorvastatin Calcium 40 MG 05/07/2020 12:00:00 AM EST 1.0 {tablet} active eCW1 ([facility]) clopidogrel 75 MG Oral Tablet Clopidogrel Bisulfate 75 MG Clopidogrel Bisulfate 75 MG 05/07/2020 12:00:00 AM EST 1.0 {tablet} activ e Clopidogrel Bisulfate 75 MG eCW1 ([facility]) atorvastatin 40 MG Oral Tablet Atorvastatin Calcium 40 MG Atorvastatin Calcium 40 MG 05/07/2020 12:00:00 AM EST 1.0 {tablet} activ e Atorvastatin Calcium 40 MG eCW1 ([facility]) atorvastatin 40 MG Oral Tablet Atorvastatin Calcium 40 MG Atorvastatin Calcium 40 MG 05/07/2020 12:00:00 AM EST 1.0 {tablet} activ e Atorvastatin Calcium 40 MG eCW1 ([facility]) Aspirin 81 MG Delayed Release Oral Tablet Aspirin 81 MG 05/07/2020 12:00:00 AM EST 1.0 {tablet} active Aspirin 81 MG eCW1 ([facility]) clopidogrel 75 MG Oral Tablet Clopidogrel Bisulfate 75 MG Clopidogrel Bisulfate 75 MG 05/07/2020 12:00:00 AM EST 1.0 {tablet} active eCW1 ([facility]) atorvastatin 40 MG Oral Tablet Atorvastatin Calcium 40 MG Atorvastatin Calcium 40 MG 05/07/2020 12:00:00 AM EST 1.0 {tablet} activ e Atorvastatin Calcium 40 MG eCW1 ([facility]) clopidogrel 75 MG Oral Tablet Clopidogrel Bisulfate 75 MG Clopidogrel Bisulfate 75 MG 05/07/2020 12:00:00 AM EST 1.0 {tablet} activ e Clopidogrel Bisulfate 75 MG eCW1 ([facility]) Aspirin 81 MG Delayed Release Oral Tablet Aspirin 81 MG 05/07/2020 12:00:00 AM EST 1.0 {tablet} active Aspirin 81 MG eCW1 ([facility]) clopidogrel 75 MG Oral Tablet Clopidogrel Bisulfate 75 MG Clopidogrel Bisulfate 75 MG 05/07/2020 12:00:00 AM EST 1.0 {tablet} activ e Clopidogrel Bisulfate 75 MG eCW1 ([facility]) clopidogrel 75 MG Oral Tablet Clopidogrel Bisulfate 75 MG Clopidogrel Bisulfate 75 MG 05/07/2020 12:00:00 AM EST 1.0 {tablet} activ e Clopidogrel Bisulfate 75 MG eCW1 ([facility]) atorvastatin 40 MG Oral Tablet Atorvastatin Calcium 40 MG Atorvastatin Calcium 40 MG 05/07/2020 12:00:00 AM EST 1.0 {tablet} activ e Atorvastatin Calcium 40 MG eCW1 ([facility]) Aspirin 81 MG Delayed Release Oral Tablet Aspirin 81 MG 05/07/2020 12:00:00 AM EST 1.0 {tablet} active Aspirin 81 MG eCW1 ([facility]) atorvastatin 40 MG Oral Tablet Atorvastatin Calcium 40 MG Atorvastatin Calcium 40 MG 05/07/2020 12:00:00 AM EST 1.0 {tablet} activ e Atorvastatin Calcium 40 MG eCW1 ([facility]) Aspirin 81 MG Delayed Release Oral Tablet Aspirin 81 MG 05/07/2020 12:00:00 AM EST 1.0 {tablet} active Aspirin 81 MG eCW1 ([facility]) atorvastatin 40 MG Oral Tablet Atorvastatin Calcium 40 MG Atorvastatin Calcium 40 MG 05/07/2020 12:00:00 AM EST 1.0 {tablet} activ e Atorvastatin Calcium 40 MG eCW1 ([facility]) clopidogrel 75 MG Oral Tablet Clopidogrel Bisulfate 75 MG Clopidogrel Bisulfate 75 MG 05/07/2020 12:00:00 AM EST 1.0 {tablet} activ e Clopidogrel Bisulfate 75 MG eCW1 ([facility]) Aspirin 81 MG Delayed Release Oral Tablet Aspirin 81 MG 05/07/2020 12:00:00 AM EST 1.0 {tablet} active Aspirin 81 MG eCW1 ([facility]) Isosorbide Mononitrate 10 MG Oral Tablet Isosorbide Mononitr ate 04/23/2020 12:00:00 AM EDT ORAL active M EDENT ([facility]) Colchicine 0.6 MG Oral Capsule Colchicine 04/23/2020 12:00:00 AM EDT ORAL active MEDENT ([facility]) atorvastatin 40 MG Oral Tablet Atorvastatin Calcium 04/22/2020 1 2:00:00 AM EDT ORAL active MEDENT ( [facility]) Metoprolol Tartrate 50 MG Oral Tablet Metoprolol Tartrate 12:00:00 AM EDT ORAL completed MEDENT ([facility]) Aspirin 81 MG Delayed Release Oral Tablet Aspirin 04/22/2020 1 2:00:00 AM EDT ORAL active MEDENT ([facility]) clopidogrel 75 MG Oral Tablet Clopidogrel Bisulfate 04/22/2020 1 2:00:00 AM EDT ORAL active MEDENT ( [facility]) Omeprazole 20 MG Delayed Release Oral Capsule Omeprazole 20 MG 04/17/2020 12:00:00 AM EDT active Omeprazo le 20 MG eCW1 ([facility]) Omeprazole 20 MG Delayed Release Oral Capsule Omeprazole 20 MG 04/17/2020 12:00:00 AM EDT active Omeprazo le 20 MG eCW1 ([facility]) Omeprazole 20 MG Delayed Release Oral Capsule Omeprazole 20 MG 04/17/2020 12:00:00 AM EDT active Omeprazo le 20 MG eCW1 ([facility]) Omeprazole 20 MG Delayed Release Oral Capsule Omeprazole 20 MG 04/17/2020 12:00:00 AM EDT active Omeprazo le 20 MG eCW1 ([facility]) Omeprazole 20 MG Delayed Release Oral Capsule Omeprazole 20 MG 04/17/2020 12:00:00 AM EDT active Omeprazo le 20 MG eCW1 ([facility]) Omeprazole 20 MG Delayed Release Oral Capsule Omeprazole 20 MG 04/17/2020 12:00:00 AM EDT active Omeprazo le 20 MG eCW1 ([facility]) Omeprazole 20 MG Delayed Release Oral Capsule Omeprazole 20 MG 04/17/2020 12:00:00 AM EDT active Omeprazo le 20 MG eCW1 ([facility]) Omeprazole 20 MG Delayed Release Oral Capsule Omeprazole 20 MG 04/17/2020 12:00:00 AM EDT active Omeprazo le 20 MG eCW1 ([facility]) Omeprazole 20 MG Delayed Release Oral Capsule Omeprazole 20 MG 04/17/2020 12:00:00 AM EDT active Omeprazo le 20 MG eCW1 ([facility]) Omeprazole 20 MG Delayed Release Oral Capsule Omeprazole 20 MG 04/17/2020 12:00:00 AM EDT active Omeprazo le 20 MG eCW1 ([facility]) Omeprazole 20 MG Delayed Release Oral Capsule Omeprazole 20 MG 04/17/2020 12:00:00 AM EDT active Omeprazo le 20 MG eCW1 ([facility]) Omeprazole 20 MG Delayed Release Oral Capsule Omeprazole 20 MG 04/17/2020 12:00:00 AM EDT active Omeprazo le 20 MG eCW1 ([facility]) Omeprazole 20 MG Delayed Release Oral Capsule Omeprazole 20 MG 04/17/2020 12:00:00 AM EDT active Omeprazo le 20 MG eCW1 ([facility]) Omeprazole 20 MG Delayed Release Oral Capsule Omeprazole 20 MG 04/17/2020 12:00:00 AM EDT active Omeprazo le 20 MG eCW1 ([facility]) Omeprazole 20 MG Delayed Release Oral Capsule Omeprazole 20 MG 04/17/2020 12:00:00 AM EDT active Omeprazo le 20 MG eCW1 ([facility]) Omeprazole 20 MG Delayed Release Oral Capsule Omeprazole 20 MG 04/17/2020 12:00:00 AM EDT active Omeprazo le 20 MG eCW1 ([facility]) Omeprazole 20 MG Delayed Release Oral Capsule Omeprazole 20 MG 04/17/2020 12:00:00 AM EDT active Omeprazo le 20 MG eCW1 ([facility]) Omeprazole 20 MG Delayed Release Oral Capsule Omeprazole 20 MG 04/17/2020 12:00:00 AM EDT active Omeprazo le 20 MG eCW1 ([facility]) Omeprazole 20 MG Delayed Release Oral Capsule Omeprazole 20 MG 04/17/2020 12:00:00 AM EDT active Omeprazo le 20 MG eCW1 ([facility]) Omeprazole 20 MG Delayed Release Oral Capsule Omeprazole 20 MG 04/17/2020 12:00:00 AM EDT active Omeprazo le 20 MG eCW1 ([facility]) Omeprazole 20 MG Delayed Release Oral Capsule Omeprazole 20 MG 04/17/2020 12:00:00 AM EDT active Omeprazo le 20 MG eCW1 ([facility]) Omeprazole 20 MG Delayed Release Oral Capsule Omeprazole 20 MG 04/17/2020 12:00:00 AM EDT active Omeprazo le 20 MG eCW1 ([facility]) Omeprazole 20 MG Delayed Release Oral Capsule Omeprazole 20 MG 04/17/2020 12:00:00 AM EDT active Omeprazo le 20 MG eCW1 ([facility]) Omeprazole 20 MG Delayed Release Oral Capsule Omeprazole 20 MG 04/17/2020 12:00:00 AM EDT active Omeprazo le 20 MG eCW1 ([facility]) Omeprazole 20 MG Delayed Release Oral Capsule Omeprazole 20 MG 04/17/2020 12:00:00 AM EDT active Omeprazo le 20 MG eCW1 ([facility]) Omeprazole 20 MG Delayed Release Oral Capsule Omeprazole 20 MG 04/17/2020 12:00:00 AM EDT active Omeprazo le 20 MG eCW1 ([facility]) Omeprazole 20 MG Delayed Release Oral Capsule Omeprazole 20 MG 04/17/2020 12:00:00 AM EDT active Omeprazo le 20 MG eCW1 ([facility]) Omeprazole 20 MG Delayed Release Oral Capsule Omeprazole 20 MG 04/17/2020 12:00:00 AM EDT active Omeprazo le 20 MG eCW1 ([facility]) Omeprazole 20 MG Delayed Release Oral Capsule Omeprazole 20 MG 04/17/2020 12:00:00 AM EDT active Omeprazo le 20 MG eCW1 ([facility]) Omeprazole 20 MG Delayed Release Oral Capsule Omeprazole 20 MG 04/17/2020 12:00:00 AM EDT active Omeprazo le 20 MG eCW1 ([facility]) Omeprazole 20 MG Delayed Release Oral Capsule Omeprazole 20 MG 04/17/2020 12:00:00 AM EDT active Omeprazo le 20 MG eCW1 ([facility]) Omeprazole 20 MG Delayed Release Oral Capsule Omeprazole 20 MG 04/17/2020 12:00:00 AM EDT active Omeprazo le 20 MG eCW1 ([facility]) Omeprazole 20 MG Delayed Release Oral Capsule Omeprazole 20 MG 04/17/2020 12:00:00 AM EDT active e CW1 ([facility]) Omeprazole 20 MG Delayed Release Oral Capsule Omeprazole 20 MG 04/17/2020 12:00:00 AM EDT active Omeprazo le 20 MG eCW1 ([facility]) Omeprazole 20 MG Delayed Release Oral Capsule Omeprazole 20 MG 04/17/2020 12:00:00 AM EDT active Omeprazo le 20 MG eCW1 ([facility]) Omeprazole 20 MG Delayed Release Oral Capsule Omeprazole 20 MG 04/17/2020 12:00:00 AM EDT active Omeprazo le 20 MG eCW1 ([facility]) Omeprazole 20 MG Delayed Release Oral Capsule Omeprazole 20 MG 04/17/2020 12:00:00 AM EDT active Omeprazo le 20 MG eCW1 ([facility]) Omeprazole 20 MG Delayed Release Oral Capsule Omeprazole 20 MG 04/17/2020 12:00:00 AM EDT active Omeprazo le 20 MG eCW1 ([facility]) Omeprazole 20 MG Delayed Release Oral Capsule Omeprazole 20 MG 04/17/2020 12:00:00 AM EDT active Omeprazo le 20 MG eCW1 ([facility]) Omeprazole 20 MG Delayed Release Oral Capsule Omeprazole 20 MG 04/17/2020 12:00:00 AM EDT active Omeprazo le 20 MG eCW1 ([facility]) clopidogrel 75 MG Oral Tablet clopidogrel (PLAVIX) tab let 75 mg clopidogrel (PLAVIX) tablet 75 mg 04/10/2020 09:00:00 AM EDT 75 mg Oral active 75 mg, Oral, Daily Standard, First dose on Wed04/10/20 at 0900, For 30 days [facility] Medication administered onsite Aspirin 81 MG Chewable Tablet Aspirin 81 MG Oral Table t Chewable Aspirin 81 MG Oral Tablet Chewable 04/10/2020 12:00:00 AM EDT 81 mg Oral active Chew 1 tablet by Mouth daily [facility] clopidogrel 75 MG Oral Tablet Clopidogrel Bisulfate 75 MG Oral Tablet (PLAVIX) Clopidogrel Bisulfate 75 MG Oral Tablet (PLAVIX) 04/10/2020 12:00:00 AM EDT 75 mg Oral active Take 1 tablet by mouth d [facility] quetiapine 25 MG Oral Tablet QUEtiapine (SEROquel) tab let 25 mg QUEtiapine (SEROquel) tablet 25 mg 04/09/2020 04:06:23 PM EDT 25 mg Oral active 25 mg, Oral, Nightly PRN, sleep or agitation, Starting Wed04/09/20 at 1606, For 30 days [facility] Medication administered onsite atorvastatin 40 MG Oral Tablet Atorvastatin Calcium 40 MG Oral Tablet (LIPITOR) Atorvastatin Calcium 40 MG Oral Tablet (LIPITOR) 04/09/2020 12:00:00 AM EDT 40 mg Oral active Take 1 tablet by mouth e very evening [facility] Metoprolol Tartrate 50 MG Oral Tablet Me toprolol Tartrate 50 MG Oral Tablet (LOPRESSOR) Metoprolol Tartrate 50 MG Oral Tablet (LOPRESSOR) 03/28 12:00:00 AM EDT 50 mg Oral active Take 1 tablet by mouth Two Times Daily [facility] quetiapine 25 MG Oral Tablet QUEtiapine (SEROquel) tab let 25 mg QUEtiapine (SEROquel) tablet 25 mg 04/08/2020 11:00:00 PM EDT 25 mg Oral completed 25 mg, Oral, Once, Wed04/08/20 at 2300, For 1 dose [facility] Medication administered onsite Melatonin 5 MG Oral Tablet melatonin tablet 5 mg melatonin t ablet 5 mg 04/08/2020 10:00:00 PM EDT 5 mg Oral active 5 mg, Oral, Nightly, First dose on Wed04/08/20 at 2200, For 30 days [facility] Medication administered onsite Metoprolol Tartrate 50 MG Oral Tablet metoprolol (LOPR ESSOR) tablet 50 mg metoprolol (LOPRESSOR) tablet 50 mg 04/08/2020 09:00:00 PM EDT 50 mg Oral active 50 mg, Oral, 2 Times Daily, First dose (after last modification) on Wed04/08/20 at 2100, For 57 doses [facility] Medication administered onsite Finasteride 5 MG Oral Tablet finasteride (PROSCAR) tab let 5 mg finasteride (PROSCAR) tablet 5 mg 04/08/2020 09:00:00 AM EDT 5 mg Oral active Benign Prostatic Hypertrophy 5 mg, Oral, Daily Standard, First dose on Wed04/08/20 at 0900, For 30 days [facility] Benign Prostatic Hypertrophy Medication administered onsite Tamsulosin hydrochloride 0.4 MG Oral Capsule tamsulosi n (FLOMAX) capsule 0.4 mg tamsulosin (FLOMAX) capsule 0.4 mg 04/08/2020 09:00:00 AM EDT 0.4 mg Oral active Benign Prostatic Hypertrophy 0.4 mg, Ora l, Daily Standard, First dose on Wed04/08/20 at 0900, For 30 days
Swallow whole. Do not crush, chew or open.
[facility] Benign Prostatic Hypertrophy Medication administered onsite Losartan Potassium 50 MG Oral Tablet losartan (COZAAR) tablet 100 mg losartan (COZAAR) tablet 100 mg 04/08/2020 09:00:00 AM EDT 100 mg Oral active Hypertension 100 mg, Oral, Daily Standar d, First dose on 04/08/20 at 0900, For 30 days
Check vital signs before administering
[facility] Hypertension Medication administered onsite 1 ML Lorazepam 2 MG/ML Injection LORazepam (ATIVAN) in jection 0.5 mg LORazepam (ATIVAN) injection 0.5 mg 04/08/2020 02:00:00 AM EDT 0.5 mg Intrave nous completed 0.5 mg, Intravenous, Once, Wed 1 at 0200, For 1 dose [facility] Medication administered onsite atorvastatin 40 MG Oral Tablet atorvastatin (LIPITOR) tablet 40 mg atorvastatin (LIPITOR) tablet 40 mg 04/07/2020 09:00:00 PM EDT 40 mg Oral active 40 mg, Oral, Every evening, First dose on 04/07/20 at 2100, For 30 days [facility] Medication administered onsite gabapentin 300 MG Oral Capsule gabapentin (NEURONTIN) capsule 300 mg gabapentin (NEURONTIN) capsule 300 mg 04/07/2020 09:00:00 PM EDT 300 mg Oral active Restless Leg Syndrome 300 mg, Oral, 2 Times Daily, First dose on 04/07/20 at 2100, For 30 days [facility] Restless Leg Syndrome Medication administered onsite Metoprolol Tartrate 25 MG Oral Tablet me toprolol tartrate (LOPRESSOR) tablet 25 mg metoprolol tartrate (LOPRESSOR) tablet 25 mg 04/07/2020 12:45:00 PM EDT 25 mg Oral aborted 25 mg, Ora l, 2 Times Daily, First dose on 04/07/20 at 1245, For 30 days [facility] Medication administered onsite Nitroglycerin 0.4 MG Sublingual Tablet n itroglycerin (NITROSTAT) SL tablet 0.4 mg nitroglycerin (NITROSTAT) SL tablet 0.4 mg 04/07/2020 12:09:17 P M EDT 0.4 mg Sublingual active 0.4 mg, S ublingual, Every 5 min PRN, Chest pain, Starting 04/07/20 at 1209, For 30 days [facility] Medication administered onsite Aspirin 81 MG Chewable Tablet aspirin chewable tablet 81 mg aspirin chewable tablet 81 mg 04/07/2020 12:00:00 PM EDT 81 mg Oral activ e 81 mg, Oral, Daily Standard, First dose (after last modification) on 04/07/20 at 1200, For 30 days
Chew tablet before swallowing.
[facility] Medication administered onsite Acetaminophen 325 MG Oral [...] mg from all sources in 24 hours.
[facility] Medication administered onsite Insurance Providers Payer name Policy type / Coverage type Policy ID Covered republican ID Covered republican's relationship to clements Policy Clements Plan Information MEDICARE A [id number] Self [id number] MEDICARE [id number] SP [id number] A Medicare [place] Primary [id number] Self 0 [id number] Medicare [place] Primary [id number] Self 0 [id number] Medicare [place] Primary [id number] Self 0 [id number] BS [place] [facility] Part B [id number] .[id number] Self V [id number] [place] Primary [id number] .[id number] Self 0 [id number] [facility] [id number] Self V [id number] Medicare [place] Medicare Primary [id number] 2.0.1.062700.3.227.99.991.06223.0 Self 0 [id number] BS [place] [facility] Part B [id number] 2.0.1.012721.3.227.99.991.45763.0 Self V [id number] Medicare [place] Medicare Primary [id number] 2.0.1.003261.3.227.99.991.95450.0 Self 0 [id number] BS [place] [facility] Part B [id number] 2..[id number]0.0 Self V [id number] BS [place] [facility] Part [place] [id number] 2..1.622322.3.227.99.991.32601.0 Self V [id number] BS [place] [facility] Part B [id number] 2..1.510247.3.227.99.991.74437.0 Self V [id number] [place] PPO 302/307 [id number] SP [id number] AARP U [id number] Self [id number] [facility] [facility] [place] Part B [id number] 2..1.253937.3.227.99.991.66430.0 Self 3 [id number] [employer] [facility] [place] Part [place] [id number] 2..1.540210.3.227.99.991.62408.0 Self 3 [id number] [employer] [facility] [place] Part [place] [id number] 2..1.477137.3.227.99.991.45272.0 Self 3 [id number] [employer] [place] Part [place] [id number] 2.16.840.1.528241.3.227.99.991.52756.0 Self 3 [id number] [employer] [facility] [place] Part B [id number] 2.16.840.1.040771.3.227.99.991.27231.0 Self 3 [id number] [facility] [facility] [place] Part B [id number] 2.16.840.1.998080.3.227.99.991.55687.0 Self 3 [id number] A[employer]/ [employer] Care Options [place] Part B [id number] 2.16.840.1.760876.3.227.99.177.9179.0 Self 32 [id number] [employer]/ [employer] Options [place] Part B [id number] 2.16.840.1.094931.3.227.99.177.9179.0 Self [id number] AARP HEALTH CARE OPTIONS [id number] [facility] Ppo Commercial [id number] 2.16.840.1.962916.3.227.99.177.9179. 0 Self [id number] Medicare - [place] Medicare Primary [id number] 2.16.840.1.453923.3.227.99.177.9179.0 Self [id number] [employer] Medigap Part B [id number] 2.16840.1.935103.3.227.99.8646.5 7563.0 Self [id number] Medicare [place] Medicare Primary [id number] 2.16.840.1.427402.3.227.99.8646.79407.0 Self [id number] ANS-Medicare Part B [id number] ANSI-Commercial [id number] [facility] Part B [id number] 2.16.840.1.599941.3.227.99.991.39784.0 Self Y [id number] [facility] [facility] Options [facility] Part B [id number] 2.16.840.1.111473.3.227.99.572.80647.0 Self 3 [id number] Medicare (Part B) Medicare Primary [id number] 2.16.840.1.839148.3.227.99.572.62950.0 Self 0 [id number] BCBS Ppo Commercial [id number] 2.16.840.1.558160.3.227.99.177.9179. 0 Self [id number] Medicare - [facility] Medicare Primary [id number] 2.16.840.1.1138 83.3.227.99.177.9179.0 Self [id number] AARP O [id number] S [id number] MEDICARE C [id number] S [id number] A [facility] Part B [id number]9.572.97655.0 Self 3 [id number] Medicare (Part B) Medicare Primary [id number] 2.16840.1.239657.3.227.99.572.89490.0 Self 0 [id number] MEDICARE [id number] SP [id number] A MEDICARE [id number] SP [id number] A AARP HEALTH CARE OPTIONS -O/P [id number] 18 [id number] MEDICARE -O/P [id number] 18 [id number] MEDICARE -I/P [id number] 18 [id number] MEDICARE [id number] Retired [id number] N31 [id number] A AARP HE[employer] CARE OPTIONS [id number] Retired [id number] MEDICARE [id number] SP [id number] AARP HE[employer] CARE OPTIONS [id number] SP [id number] A[employer] HE[employer] CARE OPTIONS 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 [id number] [employer] [facility] [place] Part B [id number] Self [id number] Medicare (Part B) Medicare Primary [id number] [id number] Self [id number] Medicare (Part B) Medicare Primary [id number] MRN.[id number] Self [id number] [facility] [id number] Self [id number] Medicare (Part B) Medicare Primary [id number] Self [id number] Medicare (Part B) Medicare Primary [id number] MRN.[id number] Self [id number] MEDICARE [id number] S [id number] A [employer] [facility] [place] Part B [id number] Self [id number] Medicare (Part B) Medicare Primary [id number] [id number] Self [id number] Medicare (Part B) Medicare Primary [id number] MRN.[id number] Self [id number] [facility] Part B [id number] Self [id number] [place] Medicare Primary [id number] Self [id number] MEDICARE [id number] A [facility] Part B [id number] 2.16.840.1.034623.3.227.99.8646.5 7563.0 Self [id number] Medicare [place]GS Medicare Primary [id number] [id number] Self [id number] [facility] Part B [id number] 2.16.840.1.386984.3.227.99.8646.5 7563.0 Self [id number] Medicare [place]GS Medicare Primary [id number] [id number] Self [id number] ANSI-Medicare Part B [id number] ANSI-Commercial [id number] Problems, Conditions, and Diagnoses Code Display Name Description Problem Type Effective Dates Data Source(s) G31.84 Mild cognitive impairment, so stated MIL D COGNITIVE IMPAIRMENT, SO STATED Diagnosis 04/18/2021 10:16:00 AM EDT Rachel jarvis Z95.818 Presence of other cardiac implants and g rafts PRESENCE OF OTHER CARDIAC IMPLANTS AND GRAFTS Diagnosis 10/22/2020 11:00:00 AM EDT [facility] spital I25.2 Old myocardial infarction OLD MYOCARDIAL INFARCTION Di agnosis 10/22/2020 11:00:00 AM [facility] 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 Diagnosis 10/22/2020 11:00:00 AM [facility] Z96.651 Presence of right artificial knee joint PRESENCE OF RIGHT ARTIFICIAL KNEE JOINT Diagnosis 10/22/2020 11:00:00 AM T [facility] spital M25.561 Pain in right knee PAIN IN RIGHT KNEE Diagnosis 11:00:00 AM [facility] 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, right leg ATHSCL [place] ARTERIES OF EXTRM W INTRMT ELIZA, RIGHT LEG Diagnosis 10/22/2020 11:00:00 AM T [facility] spital I21.4 Non-ST elevation (NSTEMI) myocardial inf arction Non-ST elevation (NSTEMI) myocardial infarction Diagnosis 04/07/2020 12:19:33 PM EDT [facility] R39.11 Hesitancy of micturition Hesitancy of micturition Diag nosis 04/07/2020 11:52:56 AM [facility] N40.1 Benign prostatic hyperplasia with lower urinary tract symptoms Benign prostatic hyperplasia with lower urinary tract symptoms Diagnosis 04/07/2020 11:52:56 AM [facility] NSTEMI NSTEMI Diagnosis 04/07/2020 11:03:00 AM ED [facility] C44.90 [id number] Problem 04/29/2021 12:00:00 AM ED T eCW1 ([facility]) 3947750 Hallucinations Hallucinations Problem 04/17/2021 12:00: 00 AM EDT [facility] ([facility] ) [id number] Memory impairment Memory impairment Problem 04/17 12:00:00 [facility] C80.1 [id number] Carcinoma Problem 04/09/2021 12:00:00 AM ED T eCW1 ([facility]) C44.99 [id number] Skin carcinoma Problem 04/03/2021 12:00:00 A M EDT eCW1 ([facility]) C80.1 922112314 Carcinoma, undifferentiated Problem 03/28/20 12:00:00 AM EDT eCW1 ([facility]) R41.3 28054006 Memory loss Problem 02/19/2021 12:00:00 AM E DT eCW1 ([facility]) I73.9 07778835 Claudication Problem 10/24/2020 12:00:00 AM EDT eCW1 ([facility]) I73.9 [id number] Peripheral vascular disease Problem 10/23/19 12:00:00 AM EDT eCW1 ([facility]) R31.0 885114525 Gross hematuria Problem 09/04/2020 12:00:00 AM EST eCW1 ([facility]) M47.27 [id number] Lumbosacral spondylosis with radiculopath y Problem 08/27/2020 12:00:00 AM EST eCW1 ([facility]) I21.4 [id number] Non-ST elevation stefani cardial infarction (NSTEMI) in recovery phase Problem 05/07/2020 12:00:00 AM EST eCW1 ([facility]) K21.9 Gastroesophageal reflux disease without esophagitis Gastroesophageal reflux disease without esophagitis Problem 05/07/2020 12:00:00 AM ES T eCW1 ([facility]) E66.3 Overweight Overweight Problem 04/23/2020 12:00:00 AM ED T [facility] ([facility]) 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 Problem 04/23/2020 12:00:00 AM EDT [facility] ([facility]) Z95.5 Patient post percutaneous transluminal c oronary angioplasty Patient post percutaneous transluminal coronary angioplasty Problem 020 12:00:00 AM EDT [facility] ([facility]) Surgeries/Procedures Procedure Description Date Indications Data Source(s) NURSE ONLY VISIT FOR DRESSING CHANGE 04/22/2021 12:00: 00 AM EDT eCW1 ([facility]) MRI BRAIN BRAIN STEM W/O CONTRAST MATERIAL 04/19/2021 12:00:00 AM EDT [facility] ([facility] ) MRI BRAIN BRAIN STEM W/O CONTRAST MATERIAL 04/19/2021 12:00:00 AM EDT [facility] ([facility] ) Assessment/Care Planning For Patient W/Cognitive Impairment 04/17/2021 12:00:00 AM EDT [facility] ([facility] ) Med: Derm Lidocaine with Epinephrine Inj ection 1% with 2 ml sodium bicarbonate Intradermally to marked areas 04/03/2021 12:00:00 AM EDT eC ([facility]) Med: Derm 1% Lidocaine with Epinephrine Injection Intr adermally to marked areas 03/06/2021 12:00:00 AM EDT [facility] ([facility]) OFFICE OUTPATIENT VISIT 15 MINUTES 01/22/2021 12:00:00 AM EDT [facility] ([facility], ) Chronic Care MGMT 20 Mins Clinical Staff Time Per Calendar M [facility] 11/11/2020 12:00:00 AM EDT [facility] ([facility] [place]) DUP-SCAN XTR VEINS UNILATERAL/LIMITED STUDY EXTREMITY STUDY 10/22/2020 12:00:00 AM [facility] DUP-SCAN LXTR ART/ARTL BPGS UNI/LMTD STUDY LOWER EXTREMITY S TUDY 10/22/2020 12:00:00 AM [facility] RADIOLOGIC EXAMINATION KNEE 3 VIEWS X-RAY EXAM OF KNEE 3 12:00:00 AM [facility] APPLICATION LONG LEG SPLINT THIGH ANKLE/TOES APPLICATION BERNA G LEG SPLINT 10/22/2020 12:00:00 AM [facility] EMERGENCY DEPARTMENT VISIT HIGH/URGENT SEVERITY EMERGENCY DE PT VISIT 10/22/2020 12:00:00 AM [facility] Chronic Care MGMT 20 Mins Clinical Staff Time Per Calendar M [facility] 08/26/2020 12:00:00 AM EST [facility] ([facility] [place]) uro PVR (Post Voiding Residual) Bladder Scan 12:00:00 AM EST eC ([facility]) ECG ROUTINE ECG W/LEAST 12 LDS W/I&R 04/23/2020 12:00: 00 AM EDT [facility] ([facility]) Arterial Pressure Waveform Analysis For Assessment Of Centra l Art 04/23/2020 12:00:00 AM EDT [facility] ([facility]) EKG 12-LEAD - CMAXX REPORT <td>EKG 12-LEAD - CMAXX REPORT</td><td></td><td>04/10/2020 11:14 AM EDT</td><td></td><td></td> 04/10/2020 11:14:53 AM [facility] EKG 12-LEAD - CMAXX REPORT <td>EKG 12-LEAD - CMAXX REPORT</td><td></td><td>04/10/2020 11:14 AM EDT</td><td></td><td></td> 04/10/2020 11:14:53 AM [facility] EKG 12-LEAD <td>EKG 12-LEAD</td><td>Rout ine</td><td>04/10/2020 11:14 AM EDT</td><td></td><td> </td> 04/10/2020 11:14:53 AM [facility] BLOOD COUNT COMPLETE AUTOMATED <td>CBC</td><td>Routine </td><td>04/10/2020 2:53 AM EDT</td><td></td><td> </td> 04/10/2020 02:53:00 AM [facility] CREATINE KINASE TOTAL <td>CK</td><td>Routine</td>< td>04/10/2020 2:53 AM EDT</td><td></td><td> </td> 04/10/2020 02:53:00 AM [facility] BASIC METABOLIC PANEL CALCIUM TOTAL <td>BASIC METABOLI C PANEL</td><td>Routine</td><td>04/10/2020 2:53 AM EDT</td><td></td><td> </td> 04/10/2020 02:53:00 AM [facility] PROJECT LEADER PROCEDURE <td>PROJECT LEADER PROCEDURE</td>< td>Routine</td><td>04/09/2020 1:31 PM EDT</td><td></td><td> </td> 04/09/2020 01:31:31 PM [facility] COAGULATION TIME ACTIVATED <td>POCT ISTAT ACT</td><td> Routine</td><td>04/09/2020 11:34 AM EDT</td><td></td><td> </td> 04/09/2020 11:34:00 AM [facility] PRQ TRLUML CORONARY STENT W/ANGIO ONE ART/BRNCH [[id number] ] <td>PRQ TRLUML CORONARY STENT W/ANGIO ONE ART/BRNCH [[id number]]</td><td></td><td>04/09/2020 10:19 AM EDT</td><td> NSTEMI</td><td></td> 04/09/2020 10:19:00 AM EDT - 04/09/2020 11:50:00 AM [facility] LEFT HEART CATHETERIZATION;PERCUTANEOUS <td>LEFT HEART CATHETERIZATION;PERCUTANEOUS</td><td></td><td>04/09/2020 10:19 AM EDT</td><td> NSTEMI</td><td></td> 04/09/2020 10:19:00 AM EDT - 04/09/2020 11:50:00 AM [facility] CARDIAC CATH PROCEDURE LOG <td>CARDIAC CATH PROCEDURE LOG</td><td></td><td>04/09/2020 9:46 AM EDT</td><td></td><td></td> 04/09/2020 09:46:15 AM [facility] HEPARIN ASSAY <td>ANTI-XA UNFRACTIONATED H EPARIN LEVEL</td><td>Routine</td><td>04/09/2020 8:14 AM EDT</td><td></td><td> </td> 04/09/2020 08:14:00 AM [facility] HEPARIN ASSAY <td>ANTI-XA UNFRACTIONATED H EPARIN LEVEL</td><td>Routine</td><td>04/09/2020 1:29 AM EDT</td><td></td><td> </td> 04/09/2020 01:29:00 AM [facility] PROTHROMBIN TIME <td>PROTIME INR</td><td>Rout ine</td><td>04/09/2020 1:29 AM EDT</td><td></td><td> </td> 04/09/2020 01:29:00 AM [facility] BASIC METABOLIC PANEL CALCIUM TOTAL <td>BASIC METABOLI C PANEL</td><td>Routine</td><td>04/09/2020 1:29 AM EDT</td><td></td><td> </td> 04/09/2020 01:29:00 AM [facility] PROJECT LEADER PROCEDURE <td>PROJECT LEADER PROCEDURE</td>< td>Routine</td><td>04/09/2020 12:15 AM EDT</td><td></td><td></td> 04/09/2020 12:15:10 AM [facility] HEPARIN ASSAY <td>ANTI-XA UNFRACTIONATED H EPARIN LEVEL</td><td>Routine</td><td>04/08/2020 2:33 PM EDT</td><td></td><td> </td> 04/08/2020 02:33:00 PM [facility] PROJECT LEADER PROCEDURE <td>PROJECT LEADER PROCEDURE</td>< td>Routine</td><td>04/08/2020 8:31 AM EDT</td><td></td><td></td> 04/08/2020 08:31:18 AM [facility] HEPARIN ASSAY <td>ANTI-XA UNFRACTIONATED H EPARIN LEVEL</td><td>Routine</td><td>04/08/2020 6:18 AM EDT</td><td></td><td> </td> 04/08/2020 06:18:00 AM [facility] PROTHROMBIN TIME <td>PROTIME INR</td><td>Rout ine</td><td>04/08/2020 6:18 AM EDT</td><td></td><td> </td> 04/08/2020 06:18:00 AM [facility] BLOOD COUNT COMPLETE AUTOMATED <td>CBC</td><td>Routine </td><td>04/08/2020 6:18 AM EDT</td><td></td><td> </td> 04/08/2020 06:18:00 AM [facility] TROPONIN QUANTITATIVE <td>TROPONIN T</td><td>Routi ne</td><td>04/08/2020 6:18 AM EDT</td><td></td><td> </td> 04/08/2020 06:18:00 AM [facility] MAGNESIUM <td>MAGNESIUM LEVEL</td><td> Routine</td><td>04/08/2020 6:18 AM EDT</td><td></td><td> </td> 04/08/2020 06:18:00 AM [facility] BASIC METABOLIC PANEL CALCIUM TOTAL <td>BASIC METABOLI C PANEL</td><td>Routine</td><td>04/08/2020 6:18 AM EDT</td><td></td><td> </td> 04/08/2020 06:18:00 AM [facility] HEPARIN ASSAY <td>ANTI-XA UNFRACTIONATED H EPARIN LEVEL</td><td>Routine</td><td>04/07/2020 6:46 PM EDT</td><td></td><td> </td> 04/07/2020 06:46:00 PM [facility] TROPONIN QUANTITATIVE <td>TROPONIN T</td><td>Timed </td><td>04/07/2020 6:46 PM EDT</td><td></td><td> </td> 04/07/2020 06:46:00 PM [facility] ECHO TTHRC R-T 2D W/WOM-MODE COMPL SPEC&COLR DOP <td>E CHOCARDIOGRAM 2D COMPLETE</td><td>Routine</td><td>04/07/2020 12:53 PM EDT</td><td></td><td> </td> 04/07/2020 12:53:14 PM [facility] HEPARIN ASSAY <td>ANTI-XA UNFRACTIONATED H EPARIN LEVEL</td><td>Routine</td><td>04/07/2020 12:15 PM EDT</td><td></td><td> </td> 04/07/2020 12:15:00 PM [facility] PROTHROMBIN TIME <td>PROTIME INR</td><td>Rout ine</td><td>04/07/2020 12:15 PM EDT</td><td></td><td> </td> 04/07/2020 12:15:00 PM [facility] BLOOD COUNT COMPLETE AUTOMATED <td>CBC</td><td>Routine </td><td>04/07/2020 12:15 PM EDT</td><td></td><td> </td> 04/07/2020 12:15:00 PM [facility] TROPONIN QUANTITATIVE <td>TROPONIN T</td><td>Timed </td><td>04/07/2020 12:15 PM EDT</td><td></td><td> </td> 04/07/2020 12:15:00 PM [facility] MAGNESIUM <td>MAGNESIUM LEVEL</td><td> Routine</td><td>04/07/2020 12:15 PM EDT</td><td></td><td> </td> 04/07/2020 12:15:00 PM [facility] LIPID PANEL <td>LIPID PANEL</td><td>Rout ine</td><td>04/07/2020 12:15 PM EDT</td><td></td><td> </td> 04/07/2020 12:15:00 PM [facility] BASIC METABOLIC PANEL CALCIUM TOTAL <td>BASIC METABOLI C PANEL</td><td>Routine</td><td>04/07/2020 12:15 PM EDT</td><td></td><td> </td> 04/07/2020 12:15:00 PM [facility] EKG 12-LEAD - CMAXX REPORT <td>EKG 12-LEAD - CMAXX REPORT</td><td></td><td>04/07/2020 12:11 PM EDT</td><td></td><td></td> 04/07/2020 12:11:13 PM [facility] EKG 12-LEAD - CMAXX REPORT <td>EKG 12-LEAD - CMAXX REPORT</td><td></td><td>04/07/2020 12:11 PM EDT</td><td></td><td></td> 04/07/2020 12:11:13 PM [facility] EKG 12-LEAD <td>EKG 12-LEAD</td><td>Rout ine</td><td>04/07/2020 12:11 PM EDT</td><td></td><td> </td> 04/07/2020 12:11:13 PM [facility] Non-covered item or service 04/06/2020 12:00:00 AM [facility] Results ID Date Data Source [id number] 04/30/2021 05:55:00 PM [facility] Name Value Range Interpretation Code Description Data Rosanna rce(s) Supporting Document(s) Troponin I 0.000-0.056 Normal (applies to non-numeric resu lts) [facility] ID Date Data Source [id number] 04/30/2021 04:09:00 PM [facility] Name Value Range Interpretation Code Description Data Rosanna rce(s) Supporting Document(s) Troponin I 0.000-0.056 Normal (applies to non-numeric resu lts) [facility] ID Date Data Source [id number] 04/30/2021 03:02:00 PM [facility] Collected By: Nurse Initials: SHIMA Time Collected: 1430 Collected By: Nurse Initials: SHIMA Time Collected: 1430 Name Value Range Interpretation Code Description Data Rosanna rce(s) Supporting Document(s) Color,Urine Colorl-Dk Y Normal (applies to non-numeric res ults) [facility] Clarity,Urine Clear Normal (applies to non-numeric re sults) [facility] Specific [place],Urine 1.005-1.030 Normal (applies to non- numeric results) [facility] pH,Urine 5.0-8.0 Normal (applies to non-numeric resul ts) [facility] Protein,Urine Negative Normal (applies to non-numeric re sults) [facility] Glucose,Urine Negative Normal (applies to non-numeric re sults) [facility] Ketones,Urine Negative Normal (applies to non-numeric re sults) [facility] Blood,Urine Negative [facility] Bil[facility] Negative Normal (applies to non-numeric results) [facility] Urobilinogen,Urine 0.2-1.0 Normal (applies to non-numer ic results) [facility] Leukocyte Esterase,Urine Negative Normal (applies to non -numeric results) [facility] Nitrite,Urine Negative Normal (applies to non-numeric re sults) [facility] ID Date Data Source [id number] 04/30/2021 03:02:00 PM EDT [facility] Collected By: Nurse Initials: SHIMA Time Collected: 1429 Collected By: Nurse Initials: SHIMA Time Collected: 1429 Name Value Range Interpretation Code Description Data Rosanna rce(s) Supporting Document(s) RBC,Urine None Seen [facility] WBC,Urine None Seen [facility] Casts,Urine None Seen Normal (applies to non-numeric resu lts) [facility] Squamous Cells,Urine None Seen [facility] Bacteria,Urine None Seen [facility] ital ID Date Data Source [id number] 05/01/2021 08:01:00 AM EDT [facility] Imaging Services Department Imaging Report [address], [place] [address] %(RAD)RES..mtdd.print.filter("line") Name: ROBERT CERDA : 1935 Age/Sex: 85M Ordering Provider: Maite Hutchinson MD Med Rec #: [id number] Reg Status: [facility] ER Room #: Date of Service: 04/30/21 Report Number: [id number] cc:Ladan Carrillo MD Send Report To: [id number] CT/CT Chest for PE with Contrast Reason [...] Date/Time: 04/30/21 1405 Transcribed Date/Time: 05/01/21 0801 Screen Printing Loader Unloader: PRASHANT Name Value Range Interpretation Code Description Data Rosanna rce(s) Supporting Document(s) ID Date Data Source [id number] 05/01/2021 08:09:00 AM EDT [facility] Imaging Services Department Imaging Report [address], [place] [address] %(RAD)RES..mtdd.print.filter("line") Name: ROBERT CERDA : 1935 Age/Sex: 85M Ordering Provider: Maite Hutchinson MD Med Rec #: [id number] Reg Status: [facility] Room #: Date of Service: 04/30/21 Report Number: [id number] cc:Ladan Carrillo MD Send Report To: [id number] CT/CT Abdomen & Pelvis w Con Reason [...] rce(s) Supporting Document(s) ID Date Data Source [id number] 04/30/2021 11:45:00 AM EDT [facility] Name Value Range Interpretation Code Description Data Rosanna rce(s) Supporting Document(s) Respiratory specimen severe acute respir atory syndrome coronavirus 2 (SARS-CoV-2) RNA Negative (qualifier value) [place] [facility] This lab was ordered by [place] Tresa beckham and reported by . ID Date Data Source [id number] 04/30/2021 12:21:00 PM EDT [facility] Name Value Range Interpretation Code Description Data Rosanna rce(s) Supporting Document(s) SARS-CoV-2 RNA Negative Normal (applies to non-numeric r esults) [facility] Negative results should be treated as pr [...] approved; this test has been authorized by [facility] under an Emergency Use Authorization for use by laboratories certified under the Clinical Laboratory Improvement Amendments of 1988 (CLIA), 42 U.S.C. ???263a, to perform moderate complexity/high complexity tests and at the Point of Care (POC), i.e., in patient care settings operating under a CLIA Certificate of Waiver, Certificate of Compliance, or Certificate of Accreditation. Factsheets for healthcare providers: https://www.fda.gov/media/595054/download Factsheets for patients: https://www.fda.gov/media/426162/download The ID NOW Instrument is a rapid molecular in vitro diagnostic test utilizing an isothermal nucleic acid amplification technology intended for the qualitative detection of nucleic acid from the SARS-CoV-2 viral RNA. THIS IS A STATE REPORTABLE COMMUNICABLE DISEASE. Manual entry verified by Kelsy Werner 04/30/21 1221 ID Date Data Source [id number] 04/30/2021 12:27:00 PM EDT [facility] Name Value Range Interpretation Code Description Data Rosanna rce(s) Supporting Document(s) B-Type Natriuretic Peptide BNP <450 Normal (applies to non-numeric results) [facility] Results of this test should always be us ed in conjunction with the patients medical history, clinical presentation, and other findings. ID Date Data Source [id number] 04/30/2021 12:21:00 PM [facility] Name Value Range Interpretation Code Description Data Rosanna rce(s) Supporting Document(s) D-Dimer,Quant 0.19-0.50 Above high normal [facility] The negative predictive value for DVT [...] on anticoagulant therapy. ID Date Data Source [id number] 04/30/2021 12:20:00 PM [facility] Name Value Range Interpretation Code Description Data Rosanna rce(s) Supporting Document(s) Sodium 138 mmol/L 136-145 Normal (applies to non-numeric resul ts) [facility] Potassium 3.5-5.1 Normal (applies to non-numeric resul ts) [facility] Chloride 102 mmol/L 98-107 Normal (applies to non-numeric resul ts) [facility] Carbon Dioxide CO2 21-32 Normal (applies to non-numer ic results) [facility] Anion Gap 5.0-16.0 Normal (applies to non-numeric resul ts) [facility] BUN 16 mg/dL 7-18 Normal (applies to non-numeric results) [facility] Creatinine,Serum 0.8-1.5 Normal (applies to non-numeric results) [facility] GFR >60 Normal (applies to non-numeric results) [facility] Glucose Level 105 mg/dL 60-99 Above high normal [facility] Reference range is only applicable when patient is fasting Note the following drug interference: Sulfasalazine Sulfapyridine Can see falsely depressed Can see falsely elevated result with up to 17% results with up to 11% decrease in measurement increase in measurement Recommend patients be collected for this test prior to administration of either drug. Calcium 8.5-10.1 Normal (applies to non-numeric resul ts) [facility] Bilirubin,Total 0.1-1.9 Normal (applies to non-numeric results) [facility] SGOT(AST) 12 U/L 15-37 Below low normal [facility] Note the following drug interference: Sulfasalazine Sulfapyridine Can see falsely depressed Can see falsely elevated result with up to 10% results with up to 10% decrease in measurement increase in measurement Recommend patients be collected for this test prior to administration of either drug. SGPT(ALT) 26 U/L 12-78 Normal (applies to non-numeric resul ts) [facility] Note the following drug interference: Sulfasalazine Sulfapyridine Can see falsely depressed Can see falsely elevated result with up to 29% results with up to 10% decrease in measurement increase in measurement Recommend patients be collected for this test prior to administration of either drug. Alkaline Phosphatase 99 U/L 38-126 Normal (applies to non-num kyle results) [facility] can increase Alkaline Phosp le vels up to 2 times the normal adult value. Normal values for children and adolescents are 2 to 3 times the normal adult value. Total Protein 6.0-8.2 Normal (applies to non-numeric re sults) [facility] Albumin Level 3.4-5.0 Normal (applies to non-numeric re sults) [facility] ID Date Data Source [id number] 04/30/2021 12:20:00 PM EDT [facility] Name Value Range Interpretation Code Description Data Rosanna rce(s) Supporting Document(s) Troponin I 0.000-0.056 Normal (applies to non-numeric resu lts) [facility] ID Date Data Source [id number] 05/01/2021 06:55:00 AM EDT [facility] Imaging Services Department Imaging Report [address] [address] %(RAD)RES..mtdd.print.filter("line") Name: ROBERT CERDA SR : 1935 Age/Sex: 85M Ordering Provider: Maite Hutchinson MD Med Rec #: [id number] Reg Status: [facility] Room #: Date of Service: 04/30/21 Report Number: [id number] cc:Ladan Carrillo MD Send Report To: [id number] XRP/XR Chest Xray Portable Reason for exam: [...] Date/Time: 04/30/21 1224 Transcribed Date/Time: 05/01/21 0655 Screen Printing Loader Unloader: ANN-MARIE Name Value Range Interpretation Code Description Data Rosanna rce(s) Supporting Document(s) ID Date Data Source [id number] 04/30/2021 11:52:00 AM EDT [facility] Name Value Range Interpretation Code Description Data Rosanna rce(s) Supporting Document(s) White Blood Count 3.5-10.5 Normal (applies to non-numeri c results) [facility] Red Blood Count 4.30-5.70 Normal (applies to non-numeric results) [facility] Hemoglobin 13.5-17.5 Normal (applies to non-numeric resul ts) [facility] Hematocrit 38.8-50.0 Normal (applies to non-numeric resul ts) [facility] Mean Corpuscular Volume 81.2-95.1 Normal (applies to non- numeric results) [facility] Mean Corpuscular Hgb 25.6-32.2 Normal (applies to non-num kyle results) [facility] Mean Corpuscular Hgb Conc 32.0-36.0 Normal (applies to no n-numeric results) [facility] Red Cell Distribution Width 11.8-15.6 Normal (appli es to non-numeric results) [facility] Platelet Count 192 x10 3/uL 150-450 Normal (applies to non-numeric results) [facility] Mean Platelet Volume 9.4-12.4 Normal (applies to non-num kyle results) [facility] Neutrophils% (Auto) 31.0-71.0 Normal (applies to non-nume dasha results) [facility] Lymphocytes% (Auto) 20.0-55.0 Normal (applies to non-nume dasha results) [facility] Monocytes% (Auto) 4.0-12.0 Normal (applies to non-numeri c results) [facility] Eosinophils% (Auto) 1.0-8.0 Normal (applies to non-nume dasha results) [facility] Basophils% (Auto) 0.0-2.0 Normal (applies to non-numeri c results) [facility] Immature Granulocytes% (Auto) 0.0-2.0 Normal (kristina lies to non-numeric results) [facility] Neutrophils# (Auto) 1.50-6.20 Normal (applies to non-nume dasha results) [facility] Lymphocytes# (Auto) 1.20-4.00 Normal (applies to non-nume dasha results) [facility] Monocytes# (Auto) 0.00-0.90 Normal (applies to non-numeri c results) [facility] Eosinophils# (Auto) 0.00-0.50 Normal (applies to non-nume dasha results) [facility] Basophils# (Auto) 0.00-0.20 Normal (applies to non-numeri c results) [facility] Immature Granulocytes# (Auto) 0.00-7.00 No rmal (applies to non-numeric results) [facility] ID Date Data Source [id number] 04/23/2021 02:45:00 PM EDT [facility] Imaging Services Department Imaging Report [address], [place] [address] %(RAD)RES..mtdd.print.filter("line") Name: ROBERT CERDA : 1935 Age/Sex: 85M Ordering Provider: ROSEANNE Green Med Rec #: [id number] Reg Status: [facility] Room #: Date of Service: 04/23/21 Report Number: [id number] cc:Ladan Carrillo MD Send Report To: [id number] CT/CT Cervical Spine No Contrast Reason for [...] Date/Time: 04/23/21 1302 Transcribed Date/Time: 04/23/21 1445 Screen Printing Loader Unloader: DERIC Name Value Range Interpretation Code Description Data Rosanna rce(s) Supporting Document(s) ID Date Data Source [id number] 04/24/2021 09:24:00 AM EDT [facility] Imaging Services Department Imaging Report [address], [place] [address] %(RAD)RES..mtdd.print.filter("line") Name: ROBERT CERDA : 1935 Age/Sex: 85M Ordering Provider: ROSEANNE Green Med Rec #: [id number] Reg Status: [facility] Room #: Date of Service: 04/23/21 Report Number: [id number] cc:Ladan Carrillo MD; ROSEANNE Green Send Report To: [id number] XRP/XR Chest 2 View [Pa & Lat] [...] Date/Time: 04/23/21 0513 Transcribed Date/Time: 04/24/21 09 Screen Printing Loader Unloader: YURI Name Value Range Interpretation Code Description Data Rosanna rce(s) Supporting Document(s) ID Date Data Source [id number] 04/23/2021 02:42:00 PM [facility] Imaging Services Department Imaging Report [address], [place] [address] %(RAD)RES..mtdd.print.filter("line") Name: ROBERT CERDA SR : 1935 Age/Sex: 85M Ordering Provider: ROSEANNE Green Med Rec #: [id number] Reg Status: DEP ER Room #: Date of Service: 04/23/21 Report Number: [id number] cc:Ladan Carrillo MD Send Report To: [id number] CT/CT Head No Contrast Reason for exam: [...] Date/Time: 04/23/21 1302 Transcribed Date/Time: 04/23/21 1442 Screen Printing Loader Unloader: DERIC Name Value Range Interpretation Code Description Data Rosanna rce(s) Supporting Document(s) ID Date Data Source [id number] 04/23/2021 03:24:00 PM EDT [facility] Name Value Range Interpretation Code Description Data Rosanna rce(s) Supporting Document(s) Electrophoresis Total Protein 6.3-8.2 Ve ry abnormal (applies to non-numeric units [facility] Electrophoresis Albumin 55.8-66.1 Normal (applies to non- numeric results) [facility] Electrophoresis Alpha 1 2.9-4.9 Normal (applies to non- numeric results) [facility] Electrophoresis Alpha 2 7.1-11.8 Normal (applies to non- numeric results) [facility] Electrophoresis Beta 8.4-13.1 Normal (applies to non-num kyle results) [facility] Electrophoresis Gamma 11.1-18.8 Very abnormal (applies to non-numeric units [facility] Electrophoresis Comments Normal (applies to non -numeric results) [facility] Result: Suspicious pattern seen on prote in electrophoresis, immunotyping added by reflex. See scanned/supplementary report. Test performed [place] [address] Immuno Electrophoresis Reflex Normal (applies t o non-numeric results) [facility] Result: Current Interpretation: Negative for monoclonal immunoglobulins. Reviewed by: Williams Benitez MD, PhD 04/21/2021 15:34. Test performed [place] [address] ID Date Data Source [id number] 04/23/2021 03:24:00 PM EDT [facility] Name Value Range Interpretation Code Description Data Rosanna rce(s) Supporting Document(s) Thiamine (Vitamin B1) result 142 nmol/L 70-180 Nor mal (applies to non-numeric results) [facility] ADDITIONAL INFORMATIO N This test was developed and its performance characteristics determined by [facility] in a manner consistent with CLIA requirements. This test has not been cleared or approved by the U.S. Food and Drug Administration. Test Performed by: [facility] [place] [address] Pharmacy Delivery Driver: Robert Jensen M.D. Ph.D.; CLIA# [id number] ID Date Data Source [id number] [facility] Interpretation Code Description Data Rosanna rce(s) Supporting Document(s) LAURO Ab,HEp-2 IgG,S result Normal (applies to no n-numeric results) [facility] REFERENCE VALUE------ <1:80 (Negative) ADDITIONAL INFORMATION Method: Immunofluorescence using HEp-2 cellular substrate. Test Performed by: [facility] [place] [address] Pharmacy Delivery Driver: Robert Jensen M.D. Ph.D.; CLIA# [id number] ID Date Data Source [id number] 04/23/2021 03:24:00 PM [facility] Value Range Interpretation Code Description Data [facility] rce(s) Supporting Document(s) Vitamin E result 5.5 - 17.0 Normal (applies to non-numeric results) [facility] ADDITIONAL INFORMATIO N This test was developed and its performance characteristics determined by [facility] in a manner consistent with CLIA requirements. This test has not been cleared or approved by the U.S. Food and Drug Administration. Test Performed by: [place] [address] Pharmacy Delivery Driver: Robert Jensen M.D. Ph.D.; CLIA# [id number] ID Date Data Source [id number] 04/23/2021 03:24:00 PM EDT [facility] Name Value Range Interpretation Code Description Data [facility] Supporting Document(s) Vitamin B6 Result 6 mcg/L 5-50 Normal (applies to non-numeri c results) [facility] ADDITIONAL INFORMATIO N This test was developed and its performance characteristics determined by [facility] in a manner consistent with CLIA requirements. This test has not been cleared or approved by the U.S. Food and Drug Administration. Vitamin B6 Pyridoxic acid Res 9 mcg/L 3-30 No rmal (applies to non-numeric results) [facility] ADDITIONAL INFORMATIO N This test was developed and its performance characteristics determined by [facility] in a manner consistent with CLIA requirements. This test has not been cleared or approved by the U.S. Food and Drug Administration. Test Performed by: [facility] [place] [address] Pharmacy Delivery Driver: Robert Jensen M.D. Ph.D.; CLIA# [id number] ID Date Data Source [id number] 04/23/2021 03:14:00 PM EDT [facility] Name Value Range Interpretation Code Description Data [facility](s) Supporting Document(s) Electrophoresis Total Protein 6.3-8.2 [facility] Electrophoresis Albumin 55.8-66.1 Normal (applies to non- numeric results) [facility] Electrophoresis Alpha 1 2.9-4.9 Normal (applies to non- numeric results) [facility] Electrophoresis Alpha 2 7.1-11.8 Normal (applies to non- numeric results) [facility] Electrophoresis Beta 8.4-13.1 Normal (applies to non-num kyle results) [facility] Electrophoresis Gamma 11.1-18.8 [facility] Electrophoresis Comments Normal (applies to non -numeric results) [facility] Result: Suspicious pattern seen on prote in electrophoresis, immunotyping added by reflex. See scanned/supplementary report. Test performed [place] [address] Immuno Electrophoresis Reflex Normal (applies t o non-numeric results) [facility] Result: Current Interpretation: Negative for monoclonal immunoglobulins. Reviewed by: Williams Benitez MD, PhD 04/21/2021 15:34. Test performed or referred by The [address] [address] ID Date Data Source [id number] 04/23/2021 03:14:00 PM EDT [facility] Name Value Range Interpretation Code Description Data [facility] rce(s) Supporting Document(s) Thiamine (Vitamin B1) result 142 nmol/L 70-180 Nor mal (applies to non-numeric results) [facility] ADDITIONAL INFORMATIO N This test was developed and its performance characteristics determined by [facility] in a manner consistent with CLIA requirements. This test has not been cleared or approved by the U.S. Food and Drug Administration. Test Performed by: [place] [address] Pharmacy Delivery Driver: Robert Jensen M.D. Ph.D.; CLIA# [id number] ID Date Data Source [id number] 04/23/2021 03:14:[address] [facility] Value Range Interpretation Code Description Data [facility] Supporting Document(s) Vitamin E result 5.5 - 17.0 Normal (applies to non-numeric results) [facility] ADDITIONAL INFORMATIO N This test was developed and its performance characteristics determined by [facility] in a manner consistent with CLIA requirements. This test has not been cleared or approved by the U.S. Food and Drug Administration. Test Performed by: [facility] [place] [address] Pharmacy Delivery Driver: Robert Jensen M.D. Ph.D.; CLIA# [id number] ID Date Data Source [id number] 04/23/2021 03:14:[address] [facility] Value Range Interpretation Code Description Data Rosanna rce(s) Supporting Document(s) LAURO Ab,HEp-2 IgG,S result Normal (applies to no n-numeric results) [facility] REFERENCE VALUE------ <1:80 (Negative) ADDITIONAL INFORMATION Method: Immunofluorescence using HEp-2 cellular substrate. Test Performed by: [facility] [place] [address] Pharmacy Delivery Driver: Robert Jenesn M.D. Ph.D.; CLIA# [id number] ID Date Data Source [id number] 04/23/2021 03:14:00 PM [facility] Value Range Interpretation Code Description Data Rosanna rce(s) Supporting Document(s) Vitamin B6 result 6 mcg/L 5-50 Normal (applies to non-numeri c results) [facility] ADDITIONAL INFORMATIO N This test was developed and its performance characteristics determined by [facility] in a manner consistent with CLIA requirements. This test has not been cleared or approved by the U.S. Food and Drug Administration. Vitamin B6 Pyridoxic Acid res 9 mcg/L 3-30 No rmal (applies to non-numeric results) [facility] ADDITIONAL INFORMATIO N This test was developed and its performance characteristics determined by [facility] in a manner consistent with CLIA requirements. This test has not been cleared or approved by the U.S. Food and Drug Administration. Test Performed by: [facility] [address] [place] [address] Pharmacy Delivery Driver: Robert Jensen M.D. Ph.D.; CLIA# [id number] ID Date Data Source [id number] 04/18/2021 11:34:00 PM EDT [facility] Name Value Range Interpretation Code Description Data Rosanna rce(s) Supporting Document(s) Vitamin B12 result 424 pg/mL 193-986 Normal (applies to non-numer ic results) [facility] Test Performed By: [place] [address] Director: Meredith Valle MD ID Date Data Source [id number] 04/18/2021 11:34:00 PM EDT [facility] Value Range Interpretation Code Description Data Rosanna rce(s) Supporting Document(s) Folate result 2.76-20.0 Normal (applies to non-numeric re sults) [facility] Test Performed By: [facility] [address] [place] [address] Director: Meredith Valle MD ID Date Data Source [id number] 04/18/2021 11:34:00 PM EDT [facility] Name Value Range Interpretation Code Description Data Rosanna rce(s) Supporting Document(s) RF Rheumatoid Factor result 0.0-15.0 Normal (appli es to non-numeric results) [facility] Test Performed By: [facility] [address] [place] [address] Director: Meredith Valle MD ID Date Data Source [id number] 04/18/2021 07:42:00 PM EDT [facility] Name Value Range Interpretation Code Description Data Rosanna rce(s) Supporting Document(s) Folate 2.76-20.0 Normal (applies to non-numeric resul ts) [facility] Test Performed By: [facility] [address] [place] [address] Director: Meredith Valle MD ID Date Data Source [id number] 04/18/2021 07:42:00 PM EDT [facility] Name Value Range Interpretation Code Description Data Rosanna rce(s) Supporting Document(s) Vitamin B12 424 pg/mL 193-986 Normal (applies to non-numeric resu lts) [facility] Test Performed By: [facility] [address] [place] [address] Director: Meredith Valle MD ID Date Data Source [id number] 04/18/2021 07:42:00 PM EDT [facility] Name Value Range Interpretation Code Description Data Rosanna rce(s) Supporting Document(s) Rheumatoid Factor 0.0-15.0 Normal (applies to non-numeri c results) [facility] Test Performed By: [facility] [address] [place] [address] Director: Meredith Valle MD ID Date Data Source [id number] 04/18/2021 12:34:00 PM EDT [facility] Name Value Range Interpretation Code Description Data Rosanna rce(s) Supporting Document(s) White Blood Count 3.5-10.5 Normal (applies to non-numeri c results) [facility] Red Blood Count 4.30-5.70 Normal (applies to non-numeric results) [facility] Hemoglobin 13.5-17.5 Normal (applies to non-numeric resul ts) [facility] Hematocrit 38.8-50.0 Normal (applies to non-numeric resul ts) [facility] Mean Corpuscular Volume 81.2-95.1 Normal (applies to non- numeric results) [facility] Mean Corpuscular Hgb 25.6-32.2 Normal (applies to non-num kyle results) [facility] Mean Corpuscular Hgb Conc 32.0-36.0 Normal (applies to no n-numeric results) [facility] Red Cell Distribution Width 11.8-15.6 Normal (appli es to non-numeric results) [facility] Platelet Count 194 x10 3/uL 150-450 Normal (applies to non-numeric results) [facility] Mean Platelet Volume 9.4-12.4 Normal (applies to non-num kyle results) [facility] Neutrophils% (Auto) 31.0-71.0 Normal (applies to non-nume dasha results) [facility] Lymphocytes% (Auto) 20.0-55.0 Normal (applies to non-nume dasha results) [facility] Monocytes% (Auto) 4.0-12.0 Normal (applies to non-numeri c results) [facility] Eosinophils% (Auto) 1.0-8.0 Normal (applies to non-nume dasha results) [facility] Basophils% (Auto) 0.0-2.0 Normal (applies to non-numeri c results) [facility] Immature Granulocytes% (Auto) 0.0-2.0 Normal (kristina lies to non-numeric results) [facility] Neutrophils# (Auto) 1.50-6.20 Normal (applies to non-nume dasha results) [facility] Lymphocytes# (Auto) 1.20-4.00 Normal (applies to non-nume dasha results) [facility] Monocytes# (Auto) 0.00-0.90 Normal (applies to non-numeri c results) [facility] Eosinophils# (Auto) 0.00-0.50 Normal (applies to non-nume dasha results) [facility] Basophils# (Auto) 0.00-0.20 Normal (applies to non-numeri c results) [facility] Immature Granulocytes# (Auto) 0.00-7.00 No rmal (applies to non-numeric results) [facility] ID Date Data Source [id number] 04/18/2021 12:34:00 PM EDT [facility] Name Value Range Interpretation Code Description Data Rosanna rce(s) Supporting Document(s) Erythrocyte Sedimentation rate 5 mm/hr 0-15 N ormal (applies to non-numeric results) [facility] ID Date Data Source [id number] 04/18/2021 12:04:00 PM EDT [facility] Name Value Range Interpretation Code Description Data Rosanna rce(s) Supporting Document(s) Thyroid Stimulate Hormone TSH 0.358-3.74 No rmal (applies to non-numeric results) [facility] ID Date Data Source [id number] 04/18/2021 12:04:00 PM EDT [facility] Name Value Range Interpretation Code Description Data Rosanna rce(s) Supporting Document(s) Sodium 143 mmol/L 136-145 Normal (applies to non-numeric resul ts) [facility] Potassium 3.5-5.1 Normal (applies to non-numeric resul ts) [facility] Chloride 104 mmol/L 98-107 Normal (applies to non-numeric resul ts) [facility] Carbon Dioxide CO2 21-32 Normal (applies to non-numer ic results) [facility] Anion Gap 5.0-16.0 Normal (applies to non-numeric resul ts) [facility] BUN 17 mg/dL 7-18 Normal (applies to non-numeric results) [facility] Creatinine,Serum 0.8-1.5 Normal (applies to non-numeric results) [facility] GFR >60 Normal (applies to non-numeric results) [facility] Glucose Level 171 mg/dL 60-99 Above high normal [facility] Reference range is only applicable when patient is fasting Note the following drug interference: Sulfasalazine Sulfapyridine Can see falsely depressed Can see falsely elevated result with up to 17% results with up to 11% decrease in measurement increase in measurement Recommend patients be collected for this test prior to administration of either drug. Calcium 8.5-10.1 Normal (applies to non-numeric resul ts) [facility] Bilirubin,Total 0.1-1.9 Normal (applies to non-numeric results) [facility] SGOT(AST) 15 U/L 15-37 Normal (applies to non-numeric resul ts) [facility] Note the following drug interference: Sulfasalazine Sulfapyridine Can see falsely depressed Can see falsely elevated result with up to 10% results with up to 10% decrease in measurement increase in measurement Recommend patients be collected for this test prior to administration of either drug. SGPT(ALT) 28 U/L 12-78 Normal (applies to non-numeric resul ts) [facility] Note the following drug interference: Sulfasalazine Sulfapyridine Can see falsely depressed Can see falsely elevated result with up to 29% results with up to 10% decrease in measurement increase in measurement Recommend patients be collected for this test prior to administration of either drug. Alkaline Phosphatase 92 U/L 38-126 Normal (applies to non-num kyle results) [facility] can increase Alkaline Phosp le vels up to 2 times the normal adult value. Normal values for children and adolescents are 2 to 3 times the normal adult value. Total Protein 6.0-8.2 Normal (applies to non-numeric re sults) [facility] Albumin Level 3.4-5.0 Normal (applies to non-numeric re sults) [facility] ID Date Data Source [id number] 04/18/2021 11:10:00 AM EDT [facility] Name Value Range Interpretation Code Description Data Rosanna rce(s) Supporting Document(s) Hemoglobin A1c Normal (applies to non-numeric r esults) [facility] Reference Range Normal: < 5.7% Pr ediabetes: 5.7-6.4% Diabetes: > 6.5% Estimated Avg Glucose 131 mg/dL 126-240 Normal (applies to non-numeric results) [facility] ID Date Data Source VITB12 & FOL 02/19/2021 12:00:00 AM EDT eCW1 ([facility]) Name Value Range Interpretation Code Description Data Rosanna rce(s) Supporting Document(s) 179 VITAMIN B12 LEVEL eCW1 ([facility]) 16.7 FOLATE eCW1 ([facility]) ID Date Data Source FREE T4 & TSH PANEL 02/19/2021 12:00:00 AM EDT eCW1 ([facility]) Name Value Range Interpretation Code Description Data Rosanna rce(s) Supporting Document(s) 0.949 0.358-3.740 THYROID STIMULATING HORM ONE eCW1 ([facility]) 0.69 0.76-1.46 FREE T4 eCW1 ([facility]) ID Date Data Source Comprehensive Metabolic Profile (CMP) 02/19/2021 12:00:00 AM EDT eCW1 ([facility]) Name Value Range Interpretation Code Description Data Rosanna rce(s) Supporting Document(s) 146 70-100 GLUCOSE, FASTING eCW1 ([facility]) 16 7-18 BLOOD UREA NITROGEN eCW1 ([facility]) 1.10 0.70-1.30 CREATININE FOR GFR eCW1 ([facility]) 4.1 3.5-5.1 POTASSIUM SERUM eCW1 ([facility]) 143 136-145 SODIUM LEVEL eCW1 ([facility]) > 60.0 >35 GLOMERULAR FILTRATION RATE eCW 1 ([facility]) 25 21-32 CARBON DIOXIDE LEVEL eCW1 ([facility]) 110 98-107 CHLORIDE LEVEL eCW1 ([facility]) 9.1 8.8-10.2 CALCIUM LEVEL eCW1 ([facility]) 27 12-78 ALT/SGPT eCW1 ([facility]) 12 7-37 AST/SGOT eCW1 ([facility]) 97 45-117 ALKALINE PHOSPHATASE eCW1 ([facility]) 5.9 6.4-8.2 TOTAL PROTEIN eCW1 ([facility]) 3.4 3.2-5.2 ALBUMIN eCW1 ([facility]) 0.6 0.2-1.0 BILIRUBIN,TOTAL eCW1 ([facility]) 1.4 ALBUMIN/GLOBULIN RATIO eCW1 ([facility]) ID Date Data Source CBC with Differential 02/19/2021 12:00:00 AM EDT eCW1 ([facility] Name Value Range Interpretation Code Description Data Rosanna rce(s) Supporting Document(s) 6.5 4.0-10.0 WHITE BLOOD COUNT eCW1 ([facility]) 14.0 13.5-17.5 HEMOGLOBIN eCW1 ([facility]) 4.59 4.30-6.10 RED BLOOD COUNT eCW1 ([facility]) 42.2 42.0-52.0 HEMATOCRIT eCW1 ([facility]) 91.9 80.0-96.0 MEAN CORPUSCULAR VOLUME e CW1 ([facility]) 30.5 27.0-33.0 MEAN CORPUSCULAR HEMOGLOB IN eCW1 ([facility]) 13.8 11.5-14.5 RED CELL DISTRIBUTION WID TH eCW1 ([facility]) 33.2 32.0-36.5 MEAN CORPUSCULAR HGB CONC eCW1 ([facility]) 59.0 36.0-66.0 NEUTROPHILS % eCW1 ([facility]) 212 150-450 PLATELET COUNT, AUTOMATED eCW1 ([facility]) 5.4 0.0-3.0 EOS % eCW1 ([facility]) 10.0 2.0-8.0 MONO % eCW1 ([facility]) 24.0 24.0-44.0 LYMPH % eCW1 ([facility]) 1.6 1.5-5.0 LYMPH # eCW1 ([facility]) 3.8 1.5-8.5 NEUTROPHILS # eCW1 ([facility]) 1.1 0.0-1.0 BASO % eCW1 ([facility]) 0.1 0.0-0.2 BASO # eCW1 ([facility]) 0.4 0.0-0.5 EOS # eCW1 ([facility]) 0.7 0.0-0.8 MONO # eCW1 ([facility]) ID Date Data Source [id number] 10/23/2020 11:58:00 AM EDT [facility] Imaging Services Department Imaging Report [address], [place] [address] %(RAD)RES..mtdd.print.filter("line") Name: ROBERT CERDA : 1935 Age/Sex: 85M Ordering Provider: Dina Golden MD Med Rec #: [id number] Reg Status: [facility] Room #: Date of Service: 10/22/20 Report Number: [id number] cc:Sushila Rubalcava MD Send Report To: [id number] XRP/XR Knee Rt 3 View Reason for [...] rce(s) Supporting Document(s) ID Date Data Source [id number] 10/23/2020 12:04:00 PM EDT [facility] Imaging Services Department Imaging Report [address] [place] [address] %(RAD)RES..mtdd.print.filter("line") Name: ROBERT CERDA : 1935 Age/Sex: 85M Ordering Provider: Dina Golden MD Med Rec #: [id number] Reg Status: [facility] Room #: Date of Service: 10/22/20 Report Number: [id number] cc:Sushila Rubalcava MD Send Report To: [id number] US/US Dup Lower Ext Artery Rt Reason [...] <Electronically signed by Chad Myers MD> 10/24/20 1155 Dictation Date/Time: 10/22/20 1309 Transcribed Date/Time: 10/23/20 1204 Screen Printing Loader Unloader: KIM Name Value Range Interpretation Code Description Data Rosanna rce(s) Supporting Document(s) ID Date Data Source [id number] 10/23/2020 11:57:00 AM EDT [facility] Imaging Services Department Imaging Report [address], [place] [address] %(RAD)RES..mtdd.print.filter("line") Name: ROBERT CERDA : 1935 Age/Sex: 85M Ordering Provider: Dina Golden MD Med Rec #: [id number] Reg Status: [facility] ER Room #: Date of Service: 10/22/20 Report Number: [id number] cc:Dina Golden MD; Sushila Rubalcava MD Send Report To: [id number] US/US Duplex Lower Ext Veins Rt Reason [...] LA CRUZ, REVIEWED AND SIGNED BY DR. MYESR. REPORT SIGNATURE ON FILE Reported By: Chad Myers MD <Electronically signed by Chad Myers MD> 10/24/20 1152 Dictation Date/Time: 10/22/20 1222 Transcribed Date/Time: 10/23/20 1157 Screen Printing Loader Unloader: PRASHANT Name Value Range Interpretation Code Description Data Rosanna rce(s) Supporting Document(s) ID Date Data Source [facility] SPINE LS COMPLETE 08/27/2020 12:00:00 AM EST eCW1 ([facility] Name Value Range Interpretation Code Description Data Rosanna rce(s) Supporting Document(s) [facility] SPINE LS COMPLETE eCW1 ([facility]) ID Date Data Source [facility] Hip,AP,LAT to include Pelvis 08/22/2020 12:00:00 AM EST eCW1 ([facility]) Name Value Range Interpretation Code Description Data Rosanna rce(s) Supporting Document(s) [facility] Hip,AP,LAT to include Pelv is eCW1 ([facility]) ID Date Data Source [facility] Femur 08/22/2020 12:00:00 AM EST eCW1 ([facility]) Name Value Range Interpretation Code Description Data Rosanna rce(s) Supporting Document(s) [facility] Femur eCW1 ([facility]) ID Date Data Source UA URINALYSIS 07/09/2020 12:00:00 AM EST eCW1 ([facility]) Name Value Range Interpretation Code Description Data Rosanna rce(s) Supporting Document(s) UA URINALYSIS eCW1 ([facility]) ID Date Data Source [id number] 04/12/2020 05:54:[address] [facility] Name Value Range Interpretation Code Description Data Rosanna rce(s) Supporting Document(s) Discharge Summary [facility] WWFWRf1zUeOFDrNq87/VCLjdTUAia3AfEYpkLGc4EXyqVCHfR4KsMTJ1fS6pKSZ6FYuPFqZbZmRuYKK2 lbm [file] BaFFfcYjVjCn9JWKAYM1LEWt== ID Date Data Source [id number] 04/10/2020 12:40:00 PM EDT [facility] ([facility]) Name Value Range Interpretation Code Description Data Rosanna rce(s) Supporting Document(s) Calcium [Mass/volume] in Serum or Plasma 9.2 [facility] ([facility]) Sodium 139 [facility] Chloride [Moles/volume] in Serum or Plasma 105 [facility] ([facility]) Potassium [Moles/volume] in Serum or Plasma 4.2 [facility] ([facility]) Glucose 104 70-140 [facility] ([facility]) Carbon dioxide, total [Moles/volume] in Serum or Plasma 22 [facility] ([facility]) Glomerular filtration rate/1.73 sq M.pre dicted [Volume Rate/Area] in Serum or Plasma by Creatinine-based formula (MDRD) Laboratory test result MEDENT ([facility]) Blood Urea Nitrogen 22 8-23 [facility] ([facility]) Creatinine 1.17 0.70-1.20 [facility] ([facility]) ID Date Data Source [id number] 04/10/2020 11:59:[address] [facility] Name Value Range Interpretation Code Description Data Rosanna rce(s) Supporting Document(s) [facility] ZNAUQb2rXaINAkJei3OcCjOuLMWjTS3txpe8G1Y9vIUvH8CabJEjd2lcD1YuO2SdFPMtRQUQNL0AtDJg jb2 [file] QipvWUdc7EpriertQBZRoGeouqgMKn8C4AHkEQjxhCc5288gYPxx/oracle fusion developer/Vjuwfm/6DizZL9Skh0jmoi7 Qq5+UFjLbC4u25HobhO2b7hcqoOTMApbYUUhef6KNd5iP2c7e5HobubyP5VFi1wmbSFEDSRN9lfW6j/7 3ekKhjllvuS3/A4KF6mzT//48vF/vbz9+MYoN2MPf7 mjV1zf5y/9/IXv5d9bzly2F+JTq77p+di7zz+8CO2AReugBU36Jc+B4lvBe437KI0dwLDqQcsHbE7/LF sDn//6m/f/+vLNb77++Ayw18la720+1jG4I0a17/7dt28/aC9f351+Md563hJz8zwpJr66//sno9gMC2 69/daTEw4M1ElQEg/82ynw1ykXYpsufet+f34gxmef zef/+tmbD5+/e/PQ+OOvX+Trjy+fv/1Nz5paF7209k8NT0/46rP/+wbJ8nz8b0B7zHvp/vOX91+9//o3 mx0671/vPnv5+CEnx406mQsN93/68SNxT796bJi7089gQziQ63d/+SwKX9872F5vMCY+/T86Xyqt5y8/ +ezN+/cjoQf85T1He45nkq+8+/qzX7/72v9ca93aLx C9zvP1e/P40v3Gjr6/+e3Hv/Oxp/yctgag1OCpN7/1Qx32JexEi/3Lr9++f/nsqy9/8+kU07eAwBcWPl 7686krh02I/DGr8k40cRw5+zcY19i87tXLF39+qZ059dyw3m+0ev+shIt56MbFK18++fzvMLaKQz/P9N mf/vjvP/z5x+9///Lf//Pl2x/+8Ifv/vzn77/7w89f Pv/ujz98/4eXf/sHGf/2jy9/+rOhad8X5c/y+uRTn58+HrtXU/l1F5i74BX00k/++Iu/7QtpfIYC6US/ /Hy0xT0Pf7pp/y/A9X/uBuc/Lp7WWApjs0Ih/oxLKb90haP8mrn5+sLEV2SN9/AT25K7jB7O96sE9/zA h+///fsHQ0+1Zq08xfqs/bu3j/v5za++lBixdqA81i uH5V8+t4hjUne08MRAco6bJ/6GHK/fTzp0VjSmb4lx6+//+Nd/evnzd3/9/tXZH+/1l6zy8/sIp7sSA6 gr9ucIq5/yHv2clscnX5//8//+i6lA7363Y54+r/2+i3/e8ms09z5aq/z+Px7X/sOf/ojT955zhU03fM 8spj953Ct//en33jv8KfQWAx8MHy1hmqahQSeZ0nQZ dD7+atP4RLv882c3S6Q75Gy22dcCVpid0lS1//P9X/720bnvnMon/+XN+0+eJagez9+wl//08+ ve/El9/94dUdnq/Jp289d76042nrvlinD50/eB542RwzpbORK/3px0+lN2akf0igF/DNt247sFqCj6Am JUbrHB+//93//ENBh5pnp7mb6ner/pOPrqYj+dG//P Uxr37/6WdvPv/oD2zBmPAqjn+/fCxzX3/K1+nzDf3//8jz/5i+xF7Wv/sf37/Iy5/+/SJygTTi8TGkQB 7wx3rw+Pz55dYXo+te90XM5VnqZo/28JM2HZRK9rYi9fd0JPtfXk68+VR4bI683cm95U2Qn/i6pZobcs ZgjUHtPO7EVP3si3MnMsW1NOKdx4JwXNhcQLj9fSGw QUstlhYya1KhvspfX4Btn5KgEsMkMBMxEdJoKrz0QERxIdT6vPOgUmYoWJRxU0ZnQQOwTtN3TrPxYINS TL5GVIXeleGrZmXmMBF+XdSyYX9clkmcICKjb2WsGUcxNVzuHRAtU6Q7nPknLFHmP6YgqI81RJYcL1Nw baO8FUX7KUUeJeFcXFEhzTYpKDLfIHY+EzIhTT6llj wqMWAvf4XiZEdmZYJ1uF0xJYjMRIXUFDjQBIwoOsP4u81dccWXTKQbMVAeMQ6PdnLzqBftaqJdeWViZP N7QgGvBFKjMWSjJJD9BXFXGMHoLSJpAOOlSVDjD7BtyIkhSWjINYPTPEsISTjfRaBfv7O2JWBecvBJWX NgIPQSIRwKDZINPKV1NHZvXWLsBY6AmIClUFX4VIeY NTXFOXeVBEneYxUtb2T9PNAzQ0DeBPEnwyRcLFIOTIqeArjaBF1yoLvrmuopP8XluDTqJSESQDKeEFDz SUFpAZJlL5Qzo1S2J2QgCSmRKEUYBZyOVUzpSvG4o36sidTGCBGqQJIdZQ7+OZ5bk8HuUp1EJFNkHD7x pkg4IK9DyLUoLT3ATJplvsWhB4smcoRlWpEhXDJXFD 3tU2PreX27GLZ+YbGtTT2evji5tlKsQnXvAYChSODsNEJbLEwfIYZnOWVwKKXrVBH6OIX4PFKcQaAcRM OhNzDkPXDrJTOaBHPwhaOKDYSwGGT0SSZpEbCnJAScADCwQRjsYTAhPKE8GBs7FJQcROIkQF1mDqBwWG GxDDNjHAGoCtZ5NbZcIjHPHZFxQMFnWFErXvMzQGZa COGkCAmuPHFzCCClNOe0RWRuZSKgBV0mNsEdCIYvKHIjWPZxZZHeUAWdylUDFUTePMLaAGK3BNSnQKCu BIYdWMkgFDEoBSEcCGK0YSErPRGcBD9tHbJgJRFkWHG8ScOwMZUgVXFvfoGCAIUnWFVvKON0XKXtTLDs EREeECdfMMLqYDLpFsK7YPKnNMXdYU3iBkJzMDXsRF O1BZWsLAZyUKCvogTRSGQfRUTfOWb6JdSyLHMxEEVoWFklQDJcISKnKRhsGHUzBIXjMP4vNzKoHEJdAY XwJONxRESwWQKavgHSXBJyGOXqIEB4FlXxRNKpBGJoULizGSPxAQLqCIY5DWEjMHWpYW2jQrZxVKWfJr U6JPTiCUHaYLOqmvKBJIPsNPMxQZSmWFNrRLPdNMIb MOtnZAXmDPWcHlU7OJHkHGZySU6kJkRnAEWdQBX1QRKvECTrLVFupeUUSIXqRQBcXZYfRCV2JQLkWJOh QEv5tqGkuTDbZhv4We4YqYcoTDK6Fa4WewMtOEGgDXECNi6Fz106WOVsZBVKDmo+PgpzdGFydHhyZWYK DpQ7DBCEOYZST5B= ID Date Data Source [id number] 04/10/2020 03:08:59 AM EDT [facility] Name Value Range Interpretation Code Description Data Rosanna rce(s) Supporting Document(s) Leukocytes [#/volume] in Blood by Automated count 8.0 10*3/uL 4-10 [facility] Erythrocytes [#/volume] in Blood by Automated count 4.72 10*6/uL 4.6- 6.1 [facility] Hemoglobin [Mass/volume] in Blood 14.5 g/dL 13.5-18 [facility] Hematocrit [Volume Fraction] of Blood by Automated count 42.9 % 4 1-53 [facility] Erythrocyte mean corpuscular volume [Entitic volume] by Auto mated count 90.8 fL 80-96 [facility] Erythrocyte mean corpuscular hemoglobin [Entitic mass] by Automated count 30.7 pg 27-33 [facility] Erythrocyte mean corpuscular hemoglobin concentration [Mass/volume] by Automated count 33.8 [facility] width [Ratio] by Automated count 14.6 % 11.5-14.5 H [facility] Platelets [#/volume] in Blood by Automated count 195 10*3/uL 150-400 [facility] ID Date Data Source [id number] 04/10/2020 03:31:[address] [facility] Name Value Range Interpretation Code Description Data Rosanna rce(s) Supporting Document(s) Bicarbonate [Moles/volume] in Serum 22 mmol/L 22-29 [facility] Chloride [Moles/volume] in Serum or Plasma 105 mmol/L 98-107 [facility] Creatinine [Mass/volume] in Serum or Plasma 1.17 mg/dL 0.70-1.20 [facility] Glucose [Mass/volume] in Serum or Plasma 104 mg/dL 70-140 [facility] Potassium [Moles/volume] in Serum or Plasma 4.2 mmol/L 3.4-5.1 [facility] Hemolyzed Sodium [Moles/volume] in Serum or Plasma 139 mmol/L 136-145 [facility] Urea nitrogen [Mass/volume] in Serum or Plasma 22 mg/dL 8-23 [facility] Anion gap 3 in Serum or Plasma 12 mmol/L 8-15 [facility] Osmolality of Serum or Plasma by calculation 292 mosm/kg 275-300 [facility] Creatinine/Urea nitrogen [Mass Ratio] in Serum or Plasma 19 [facility] Calcium [Mass/volume] in Serum or Plasma 9.2 mg/dL 8.8-10.2 [facility] Glomerular filtration rate/1.73 sq M pre dicted among non-blacks [Volume Rate/Area] in Serum or Plasma by Creatinine-based formula (MDRD) >6 0 [facility] Glomerular filtration rate/1.73 sq M pre dicted among blacks [Volume Rate/Area] in Serum or Plasma by Creatinine-based formula (MDRD) >60 [facility] ID Date Data Source [id number] 04/10/2020 11:17:06 AM [facility] Name Value Range Interpretation Code Description Data Rosanna rce(s) Supporting Document(s) Creatine kinase [Enzymatic activity/volume] in Serum or Plasma 205 U/L 20-200 H [facility] ID Date Data Source [id number] 04/09/2020 01:17:08 PM [facility] Name Value Range Interpretation Code Description Data Rosanna rce(s) Supporting Document(s) History and Physical [facility] DZCTIs2yXxBNShPd67/ZSNisWJJur6OqHRqgSKm8UFfqEHUnD1JzKRR1qW6gRCS4SToMToEpJpWmHXFl [facility] [file] AgICAgICAgICAgICAgICAgICAgICAgICAgICAgICAg WAYqYOHiETRySHNhXFNzKXAuZCCrZIMxEEUgBMIxBWGxOCSkQOZsXZPwHRNwYUBxQS5LMJVrUGBpONUd ICAgICAgICAgICAgICAgICAgICAgICAgICAgICAgICAgICAgICAgICAgICAgICAgICAgICAgICAgICAg ICAgICAgICAgICAgICAgICAgICAgICAgICAgICAgIA 0KICAgICAgICAgICAgICAgICAgICAgICAgICAgICAgICAgICAgICAgICAgICAgICAgICAgICAgICAgIC BnQDOtEQIyWYHdEXFzIIMnOTDmCSAqUSYhKZVyODLxWMXsBEMsQWGoRS8QVYJgHXDbIWBpMLDrTLBgCY AgICAgICAgICAgICAgICAgICAgICAgICAgICAgICAg NCXsPZUpNIJpDMEiKTBdFXJlWYQkZZJpTVIwWSWhKWZvQUMqTWLdLTZpHQFvYXOgBCJiIG6FNHMfOVGz ICAgICAgICAgICAgICAgICAgICAgICAgICAgICAgICAgICAgICAgICAgICAgICAgICAgICAgICAgICAg ICAgICAgICAgICAgICAgICAgICAgICAgICAgICAgIC TiZC4NMNRiUNRqNIYbNZFxRXQzRQDcHAIdDFOiNTIpRDOlKRWkILTzFZUdKPQkRYFyRNVcCWYmLMArYT YcSREcOLUePRHoOSZcBQNhCMGjFNRiHEQaCJQzDIFkEMJtLCAjZQIqESBcVG3RCSGeTWOsLVHnHZIqKC AgICAgICAgICAgICAgICAgICAgICAgICAgICAgICAg ENLfSZHjDELpXNRyZEPbWAVvYQGcELSvQMGzGTJiQPLqHODgSGZiMIMlNORjDGVhAPNgNZZiFL0YVBNs ICAgICAgICAgICAgICAgICAgICAgICAgICAgICAgICAgICAgICAgICAgICAgICAgICAgICAgICAgICAg ICAgICAgICAgICAgICAgICAgICAgICAgICAgICAgIC QxEEPmTJ3QEUGxRBXtVRVdIQIeYTGzAIViLPIeHKCgXVUzJUOeBSFmOMPnAYSkJVGrYXEpILXwWKSkOG SnQGMjKRKqLRHyFRYfFRSgGVEaIQOkMQVsSKHaUKHeMKMiVYZlBMGvTGBgERHlRG7ZJVXwDTLfSNReVE AgICAgICAgICAgICAgICAgICAgICAgICAgICAgICAg YXYiBCKzFUTlQYSsHQBsDIIbWRQmDJGgXGRlGIBwORJyGBKiRVFmPMWtUZAePIGmJQGsDKQpAOQwWP7C VN09gEHpu7G1EKZlVS7zeoq/Yy6QQWjjhoOccHCnES3UAqAyAL6izs9DRwBlFU5cta7OISePVaVtT7P7 jUGtMQMvXLQKYyZqO09oALswGl31OUcwXZPmRhAsAF u2Ha8AYoApN5diCENrFsC1TNElKvY2EYFeMeG6CJDcLoWhXBImKRXxZALfEVLBGP9JBqMoA1MhrL81LZ UNCj4+PAfdkiCmLpeXNcPoUNEfv7OfQCd8UY3FXPAuVjnkd6DoQzSsMSYXYJhlDQ2JGVV1EDHdHAGjHe 6FDHBbM151ikPkIH6AJn8UDbNjXO5htc6XJtMsQDWs XctDKcz9ISjaZF5DlWBrKTwYYlDwXkzwS7SvJVWmZW7pvXGtZZQYMOGkrYXxFU6rMg0kJMAuNEM3BkS7 HEGABP7RXFSoFBVqgPKyZPQuEDVOQI6JZKoyXSE7YBHsrwXadWHkDSsgLN8VSOSbnbOuRdMxICAVKEk+ Ba8KTQ4ae8LnLQwyBaUkIJ4oip2CEMqBWjRjJ7G3hX BoU3W3LUefZd1BRABpYQYcCzqdLLTHTKakQV9TJH3oaaK3WU5DaEAgNWZfZVUnqZQuHIg4Y63ebQQuNM hoLY8UQKU+Pham+Zh0LRDXhESGqVREuYaYpNDCDRqInL1NkH9WMq0AwA4FvTT20yOstnnSpHOtvPA8GXH 1nHEGrCENXNI8HzGFkmH2tfuRqTYBmEUBOAmMqR02n wIRdJXStSRG3SCXbIj9XYMTwG6ZsfmHumFfwbsPrPXOeVBQDAV7KXAtsrvXhaNOlwVzuPA47lBfqTH5I Lo9HAaQoON3gzt4NkOToGh9AYLIbFc7XDKZvSSXoKGEhTTA0CIYgUcPjUNryVBZqRJSpRQR6PGNgBXPy US6RGmEvJSQiFgBuGFAfUYThMEEcge4XNZQxXZOiTs imXhBjXTUxHSRbABxuPLFhBLTpFYO4AXEgOSJyCF7IGeOuGHGdYGNkDmwdWHBcXFUfof2ICTQjWGQtVc Y1BjUwDCTcNTDgMQshXSYqHHB4UxZpCLUyIZJwOA2BUuYlVVYuPYO7NScnEULmXCZjbg0PIGIpRDOcCG neAfKcKHLtIVHoVJdfGLRzEIDlPYOfEGWdPHUlUE2V CrInBOBnRRPfBBIjEQRpELFedk5VZXXuVJGdAtU6PmNdOQSgJIWwNUrrIYNzJKF7DQJ1ILTdPVXoGW1V PxXaKCPuPCL8GJCrGESaLOMqyk1CJLBsVUVkBIhxWaYvSGQiUGGuEXnnWYVhRYA4TIYbCWBhYUGhWA3W QyDwKHTgDSZuYMGnIQTqWWOume5XCDIbRGMpEwK0Sg YbGQAuLMYpTNorXDQhNWN3DyA4PWEvERPfZM7XTeCkTMFfTQr5EoRkFNRbAAPxdj1LMDSuGQSpHGV7Yp JgYZAnVAWwKBgpGFRhRMC9ZUz2VAQiXAEaIS3DWnOnLWRgPZw9XuSjRHWjKUXeem3LNKLxRXPaBIN5Ri EcSXRaLLOaIMqsJAMlHUQfEUz5SDTrOTDzCF2RTpNg TKSeVmP8XWAxBKOhDKFrql3MXDHuCSMvFNgrBkLgCXIcNPWnXFacFCPjFMTfRKX5YIMgFTHrDI2IEdVd KVKvEvO4MQFvXVFuRXQaek8AYORkVVTuZhj0WBQdHNGqSVEqIVvnSNHaYFMzKCTwIUYgYUTaAW7KDaYz JNDkHdKtREopEJLaNEGmgh4HiPAvhWhfcv9DORuETy 0PtWdyJUFjDKruSd5eiZMpQbVyQJZEKz7WvkDbDTSfVKOXNDmqTBYpDXcvOkP5KWB6Poh0Y8EtZWC7ZA Z1NRWqR2MrKWD8RYLoFdA3PWKmCAAvCsVyYDvxFTV6Ogi8LZQpOvBiCNArCTLqYsX+GD9cLLa+Pg0Kc3 ZgrcD2dzPwURjtFoZhTj9HIRKDM7FRRf== ID Date Data Source [id number] 04/09/2020 11:46:[address] [facility] Name Value Range Interpretation Code Description Data Rosanna rce(s) Supporting Document(s) Kaolin activated time [Units/volume] in Blood 263 s [facility] ID Date Data Source [id number] 04/09/2020 10:35:[address] [facility] Name Value Range Interpretation Code Description Data Rosanna rce(s) Supporting Document(s) [facility] OYQJKz1fJhRKEsQk69/FTFhaLPAtw8FaMNhyEQn9JIpqEVOrI9KhKJV6xO6hQLP0LQqIRkJeXlFnSRVc lbm [file] UDAKU6OGFi== ID Date Data Source [id number] 04/09/2020 09:54:18 AM EDT [facility] Name Value Range Interpretation Code Description Data Rosanna rce(s) Supporting Document(s) [facility] IFFPFe4yQlNBDgXmr8GcRyUhTTZqJG3rhjr8A6A9zUQbZ7UtzUIfw3zcQ8UgS7KdTCLiFNODDK9KoFFj jb2 [file] upper sorbian+iEfx7bcEU/Bnv61xV9Lgt9kfIrvCAI4cu+uWziH ypuj3TjZYMqZOkazcT60eFOvebhXax6w52goJd27t2xOnWT9xOn6ul5Wq4qiPaheorA/EOLmltJbJM5J 5OdSm/vJbiN/PBmiXW8+GWrb7hsmm72cOModfe1SD1sQKonpkxWEIoqg+e6AASYCcrb921+hTbkX1emm E/q/ajGnjB47VzUVtQ8UxcoV6W1vjJsNb1aUTMsKe+ b0M5a2Xc1WRPtARuZoMSF6018MksVhdrOLhuLOKjusWvzbgvFmmoEiaiN3imCu9UhEmGIv0JqBub9cba 5CqEkfuMNWTrms5kPltOxD1r/+s3zzfO/ldqa5API4OielavhuxrPsDgrSyIv/uV4HCC5LeCdXlBySdm t0v6OFOvIXiEfI+kS0kqk+Yje/AZ7EF/Em54oiZRGV fzjLxYYEp6ukWrqNB0HBG8v4sQ3VhDXuh5nbmKG+iZvYy3fK7jVMlsPk2yviI6s80p2YfwDbw0OAkPX3 9o8habEEBdCnyfEAA5zH+8StcxHFrsoTAKOAytjLugpNzyS4ZZK0Kx+6VZ+aWfqPTuZxETYkKM/BLkly C/tGM3S8c4HlTaThIj9P3vR+xcoSyn6qptkWk2PDjt Y6MIp5Z320GdIwZ2y8S+SNv5jLyFgOsAt+/mstoTuEc1AVwvcR4pvmMogXhoea2RCwgveg0yulZ0y2GT vD6D299yAelTCxjKfwxWewWuf4E7hE5rcCNjUY/XgbLJvFO2EPJkEWiv9hds5R686uX4hqKl5Qc636U+ Rc0q15FosPbQ2j4m57h/10e3PkE6kH4q/Io/68d0rr [file] 795d/5270N5G/11sr895r/9/KdW04z0/rnV2+qdV9TC98/8vPP3/4Ok59x8f4e5l2//2/f/fCnb//w9t //4+3r7/74x29++OHbb/74j2+/+Uj9870755q//r3Ev/7D25+/r6Bqz4u90Fjq+bH1j1+c2t68xt5/uQ HprlbtT3/14B810Rh5mYpr+A2yD20x/OD9+tX/BTi/ kB4w/+f0Nzb3cBTY2uxP0+bdI30arwj8/scAiBB0O8++rkfd1PC1BoNa+w/vv/14n70IqdC88lpex/df fMpw1sd/99gV635/MWYqu835Hv79dUmj0nwfz84s0gfn/bq94AWFcRIFGSZD/1Ev//rb7//6T28/fPPX b39U+3wnyFg7r+4//YmPaEoPpqP/tPYN/oq012sy// XbH/20l8z9Ps5E23+rX/f+PMW/UfvGfvv+q7c//K/XvX/35+9/Mf9KCazB5toIH/bbDz/79Hio63Gtpt Bf3+Y/e31R/0g7qZUpL+S8QY5u+fqGA/aRyI+qNoLefnpbG/vNR+8/+vD2zf/59i//+e79BfjIJ//lky 8+gcB5iy0+aG//8cO//sNP/r0fxK+/+eOPHnD+CP30 m//1+2/+8t033//k/K1q1+9+Aj5Kev/souvenir and novelty maker//p4+tP8jbXp+eXgh4j701jS/QGoz6eQ0EVJRd//f2/f//d 71/09DYrPtjVlV2i61etty58n8+++hChGo3lef/+/T/++u9/+u6b/0oefNIHlf8752+/++ZMRj6iwuwy vv//X+0IZL7wIuv/883/+TKR9a26n676widp7idEwv o7db5OAy/vfvHhNTrcg9+blGA6axe+Ne6/GmfS+g720z0YD76Gqmxe/6fa1CyPd9xy8/7/TSwpS7SDYV 7wo1KfYWBxUlGvNN7cogjjYDPdJW1vzmi4V1KqaAihZFzSDJNhAg7asYPsSF7GNPW1OXuzSGPoDIBhR1 VpyD4vX17vtJIxOnKfXWWUDZ8KukQ8BZP7QIC2LAKl JyXnQAFdKV00AYQtWUAYWy1tumTwOszZPmJaTW1wnee3E9I3sPIlT393wHhmqvHkVN7Ah7PjdSPlPD1O wKDctVJaIVIaXSVfN1vmr9YoVRniUVCJTu0gxaIrEpsYHeBfCH2agsa3O4W8oNhlvoDaKNBQLGhlUguc FF1tiZvlnuzrR0VfbOUwBKKsX2EjWTZtz71JRJZsCR bRAdWbFmUcTXZaDCc5YEevWgYiZSIqHTDiSBXnET5ItVHdFCKmXGWKUTlvMrfqWPCmhN6fgBDSv6IySU ROOfmpR9vDHFkKWRGiPXdqKTz5FJYgU7IaeqJehFUfZQDMLSpoIbhhUBTlpI2ehVwaO1YjNNK8m1HhFV 3YC8JyNLHgJVCCZBS0t0VkNTZuxqzqmtxrMdRoTYVo JQLjDFDvFR4Igh3acDFntbAjDLBBZQjzWuhuKN9crNknmilcX5JohFBqWWV+ZqAlPB6ixa0+CjEgMCBv Lbv3SUFiULlaRIHhUWSvKQEbB9bcDAWeAfMcVFEuSvJiHQ9Gl5DvmRTzKf2wqtByMwqDpHQsZfpyASWp CMRtCJSmYeOCXLXxFQZlHBMwITO3BACdSGWiQJtkMW XzFVQ7BeGlFGYuSRRoSG2fBgJeQSBxCgN9KsDgFEJbFCBlhgLRFXAcLFE5OYkhLBLjQGCeUOVqGAqgQI YvGUQuQZWtJSW6LJR2KOGuDoPlVJNkQZJpWQCvKZAcJXKgvtNQPPQpXCHuWVS0XARlGDQkWXFeIVkdPW KxTMXbEMbxNTPoPZFkAK0jTnGiGCHaFHZzVWhtGVDr FJTbllOJFPKfTXGbFBOoGFTfYJLsQQElUNihDZUoIDOjLCUmDSRmCYOhVP7xBgLkTNPkERI8SLBgECDc KOLpqeBMTQGaJRNkKQh6HOAlVJTtLGJyINhzQQYsUHHiBIS9BVZtELSnJK9aKmFkOKIwOGZ9GdWyWREg GQWmuuLBKEQyTJDvGZA0TsUdROSqAFLgRKgaKEEyGS EyQBzzZMVlHAKwDO2eSuGpJLDbVSZfJRyxVJFxTRPtalYLJQQkRKZyIGPsOoJcPOXgWBSkYHxoXXKoYK S3OlZ0THRrRFGgHX4eGaGvJOBgIWU9TFvjGMLpSKStnaXWBNOqSRIzESgkWZEfSSOvHUGpJAfrVTUvSO GsILU2UXCiYLWhVW4fCaQrBQCdLCZpLXYdXwY0FxOz FaAJqTFevZpemwf2KTcxO3z7UYTnVUbfDK5zaaMjPIQzFuidNj2afWT0LUGiCwmGHd8Kx9JbpxU2jtPh UzJ7TsE2YvBjYE0Z ID Date Data Source [id number] 04/09/2020 08:48:34 AM [facility] Name Value Range Interpretation Code Description Data Rosanna rce(s) Supporting Document(s) Heparin unfractionated [Units/volume] in Platelet poor plasma by Chromogenic method 0[facility]37 U[facility] Date Data Source [id number] 04/09/2020 01:56:24 AM [facility] Name Value Range Interpretation Code Description Data Rosanna rce(s) Supporting Document(s) Heparin unfractionated [Units/volume] in Platelet poor plasma by Chromogenic method 0.45 U/ml [facility] ID Date Data Source [id number] 04/09/2020 02:04:11 AM [facility] Name Value Range Interpretation Code Description Data Rosanna rce(s) Supporting Document(s) Bicarbonate [Moles/volume] in Serum 21 mmol/L 22-29 L [facility] Chloride [Moles/volume] in Serum or Plasma 103 mmol/L 98-107 [facility] Creatinine [Mass/volume] in Serum or Plasma 1.04 mg/dL 0.70-1.20 [facility] Glucose [Mass/volume] in Serum or Plasma 126 mg/dL 70-140 [facility] Potassium [Moles/volume] in Serum or Plasma 3.8 mmol/L 3.4-5.1 [facility] Sodium [Moles/volume] in Serum or Plasma 136 mmol/L 136-145 [facility] Urea nitrogen [Mass/volume] in Serum or Plasma 19 mg/dL 8-23 [facility] Anion gap 3 in Serum or Plasma 12 mmol/L 8-15 [facility] Osmolality of Serum or Plasma by calculation 286 mosm/kg 275-300 [facility] Creatinine/Urea nitrogen [Mass Ratio] in Serum or Plasma 18 [facility] Calcium [Mass/volume] in Serum or Plasma 8.7 mg/dL 8.8-10.2 [facility] Glomerular filtration rate/1.73 sq M pre dicted among non-blacks [Volume Rate/Area] in Serum or Plasma by Creatinine-based formula (MDRD) >6 0 [facility] Glomerular filtration rate/1.73 sq M pre dicted among blacks [Volume Rate/Area] in Serum or Plasma by Creatinine-based formula (MDRD) >60 [facility] ID Date Data Source [id number] 04/09/2020 05:05:57 AM [facility] Value Range Interpretation Code Description Data Rosanna rce(s) Supporting Document(s) Prothrombin time (PT) 14.0 s 12.5-14.9 [facility] INR in Platelet poor plasma by Coagulation assay 1.06 [facility] Routine intensity oral anticoagulation I NR is typically 2.0-3.0. Target INR must be clinically individualized. ID Date Data Source [id number] [facility] Interpretation Code Description Data Rosanna rce(s) Supporting Document(s) Heparin unfractionated [Units/volume] in Platelet poor plasma by Chromogenic method 0.56 U/ml [facility] ID Date Data Source [id number] 04/08/2020 07:06:35 AM [facility] Value Range Interpretation Code Description Data Rosanna rce(s) Supporting Document(s) Leukocytes [#/volume] in Blood by Automated count 7.7 10*3/uL 4-10 [facility] Erythrocytes [#/volume] in Blood by Automated count 4.91 10*6/uL 4.6- 6.1 [facility] Hemoglobin [Mass/volume] in Blood 15.0 g/dL 13.5-18 [facility] Hematocrit [Volume Fraction] of Blood by Automated count 44.3 % 4 1-53 [facility] Erythrocyte mean corpuscular volume [Entitic volume] by Auto mated count 90.3 fL 80-96 [facility] Erythrocyte mean corpuscular hemoglobin [Entitic mass] by Automated count 30.6 pg 27-33 [facility] Erythrocyte mean corpuscular hemoglobin concentration [Mass/volume] by Automated count 33.9 g/dL 32.0-36.0 [facility] Erythrocyte distribution width [Ratio] by Automated count 14.3 % 11.5-14.5 [facility] Platelets [#/volume] in Blood by Automated count 206 10*3/uL 150-400 [facility] ID Date Data Source [id number] 04/08/2020 07:19:15 AM [facility] Value Range Interpretation Code Description Data Rosanna rce(s) Supporting Document(s) Prothrombin time (PT) 13.0 s 12.5-14.9 [facility] INR in Platelet poor plasma by Coagulation assay 0.97 [facility] Routine intensity oral anticoagulation I NR is typically 2.0-3.0. Target INR must be clinically individualized. ID Date Data Source [id number] 04/08/2020 07:37:02 AM [facility] Name Value Range Interpretation Code Description Data Rosanna rce(s) Supporting Document(s) Heparin unfractionated [Units/volume] in Platelet poor plasma [facility] Date Data Source [id number] 04/08/2020 09:18:37 AM [facility] Name Value Range Interpretation Code Description Data Rosanna rce(s) Supporting Document(s) Bicarbonate [Moles/volume] in Serum 22 mmol/L 22-29 [facility] Chloride [Moles/volume] in Serum or Plasma 102 mmol/L 98-107 [facility] Creatinine [Mass/volume] in Serum or Plasma 1.07 mg/dL 0.70-1.20 [facility] Glucose [Mass/volume] in Serum or Plasma 117 mg/dL 70-140 [facility] Potassium [Moles/volume] in Serum or Plasma 4.1 mmol/L 3.4-5.1 [facility] Sodium [Moles/volume] in Serum or Plasma 135 mmol/L 136-145 L [facility] Urea nitrogen [Mass/volume] in Serum or Plasma 17 mg/dL 8-23 [facility] Anion gap 3 in Serum or Plasma 11 mmol/L 8-15 [facility] Osmolality of Serum or Plasma by calculation 283 mosm/kg 275-300 [facility] Creatinine/Urea nitrogen [Mass Ratio] in Serum or Plasma 16 [facility] Calcium [Mass/volume] in Serum or Plasma 8.8 mg/dL 8.8-10.2 [facility] Glomerular filtration rate/1.73 sq M pre dicted among non-blacks [Volume Rate/Area] in Serum or Plasma by Creatinine-based formula (MDRD) >6 0 [facility] Glomerular filtration rate/1.73 sq M pre dicted among blacks [Volume Rate/Area] in Serum or Plasma by Creatinine-based formula (MDRD) >60 [facility] ID Date Data Source [id number] 04/08/2020 09:18:37 AM [facility] Value Range Interpretation Code Description Data Orsanna rce(s) Supporting Document(s) Magnesium [Mass/volume] in Serum or Plasma 1.9 mg/dL 1.6-2.4 [facility] ID Date Data Source [id number] 04/08/2020 09:18:37 AM [facility] Value Range Interpretation Code Description Data Rosanna rce(s) Supporting Document(s) Troponin T.cardiac [Mass/volume] in Serum or Plasma 0.25 ng/mL <0.01 [facility] No Significant Change since last result called ID Date Data Source [id number] 04/07/2020 07:21:40 PM [facility] Value Range Interpretation Code Description Data Rosanna rce(s) Supporting Document(s) Heparin unfractionated [Units/volume] in Platelet poor plasma by Chromogenic method 0.25 U/ml [facility] ID Date Data Source [id number] 04/07/2020 07:55:53 PM [facility] Value Range Interpretation Code Description Data Rosanna rce(s) Supporting Document(s) Troponin T.cardiac [Mass/volume] in Serum or Plasma 0.28 ng/mL <0.01 [facility] No Significant Change since last result called ID Date Data Source [id number] 04/07/2020 04:49:04 PM [facility] Value Range Interpretation Code Description Data Rosanna rce(s) Supporting Document(s) History and Physical [facility] IUGBMw8vRtRANyYc18/HKSblOIRtk1AvQWyeYJh9BJjuFJBpS8BuKQY0aU7sNTG7MDbDRlEfDpVkORUr lbm [file] AgICAgICAgICAgICAgICAgICAgICAgICAgICAgICAgICAgICAgICAgICAgICAgICAgICAgICAgICAgIC AgICAgICAgICAgICAgICAgICAgDQogICAgICAgICAgICAgICAgICAgICAgICAgICAgICAgICAgICAgIC AgICAgICAgICAgICAgICAgICAgICAgICAgICAgICAg ICAgICAgICAgICAgICAgICAgICAgICAgICAgICAgDQogICAgICAgICAgICAgICAgICAgICAgICAgICAg ICAgICAgICAgICAgICAgICAgICAgICAgICAgICAgICAgICAgICAgICAgICAgICAgICAgICAgICAgICAg ICAgICAgICAgICAgDQogICAgICAgICAgICAgICAgIC AgICAgICAgICAgICAgICAgICAgICAgICAgICAgICAgICAgICAgICAgICAgICAgICAgICAgICAgICAgIC AgICAgICAgICAgICAgICAgICAgICAgDQogICAgICAgICAgICAgICAgICAgICAgICAgICAgICAgICAgIC AgICAgICAgICAgICAgICAgICAgICAgICAgICAgICAg ICAgICAgICAgICAgICAgICAgICAgICAgICAgICAgICAgDQogICAgICAgICAgICAgICAgICAgICAgICAg ICAgICAgICAgICAgICAgICAgICAgICAgICAgICAgICAgICAgICAgICAgICAgICAgICAgICAgICAgICAg ICAgICAgICAgICAgICAgDQogICAgICAgICAgICAgIC AgICAgICAgICAgICAgICAgICAgICAgICAgICAgICAgICAgICAgICAgICAgICAgICAgICAgICAgICAgIC AgICAgICAgICAgICAgICAgICAgICAgICAgDQogICAgICAgICAgICAgICAgICAgICAgICAgICAgICAgIC AgICAgICAgICAgICAgICAgICAgICAgICAgICAgICAg ICAgICAgICAgICAgICAgICAgICAgICAgICAgICAgICAgICAgDQogICAgICAgICAgICAgICAgICAgICAg ICAgICAgICAgICAgICAgICAgICAgICAgICAgICAgICAgICAgICAgICAgICAgICAgICAgICAgICAgICAg ICAgICAgICAgICAgICAgICAgDQogICAgICAgICAgIC AgICAgICAgICAgICAgICAgICAgICAgICAgICAgICAgICAgICAgICAgICAgICAgICAgICAgICAgICAgIC MiHBUtBSXxHXLkZTWuUICfPEZtINWsBZDyBJUrPQl4S1lcHFHrTLVuSX5yPVt8Ch0+LIxCMvAwHID8wf KkgC2CWT5ty6GuRSeqETJlw5OyIOf2CV4FTLLzNYnq BP7EJJmxlr6PLFQgAMVifUJXb4yqUeOvNYN9FBWzCakaSN9YRZOxY4zhkrTbDMKyNGHTZRfcSDIVJKxr MUECEQRsTXTfQmTmDXtdUP0Ul3OeyCE9KZk+Dn1DWR0re1SgSHtgPrNlDO7sen5FMVhHRqBeC1WggoO3 QQEpHXHcFc9IUOJsBVAglCVrSrUiMQMHImInJ0ZvhE 31UFNISc7+XVjhunKaLcuSDqVyMESxz6EaLEz6KQ6NDVUwSQj3tDQdXCLEFNK7CSPfU4tdQBhaVIFHcm 35gOTuKRSMOeTdhRXuEL0eXG7cNDUhSFJcZyL1TWPTQQ4YTENiSSPphTVfAOLtTFWXEA8TLFzxULM7IN AwbaYitLRrVYaeKA4NFHTnzoIeGqZqVVNPHOx+Pg0K NG0uf9NwZVrxDyWlFS5kji5LTNqIHvTpO5S5zJQbE2Kqgz55KR0PwYU7wBHfGH8LhN1bLF1Bc9MqRFAz OuTbAUFqRKGdVGQqLXEwUpNpIM7ZAHTmQbXkeZZdJWQoZCg6DYC1BQM1MiGzIJ4HGIPwWDA2NL8XLZ6R MimpS6RPWUtjlPBghjfvK7w4vz2cuZfjbw5qb18lN3 lrSBQdlt7bE0H/JgnoHS3tTeWwRMRfUEH7tTn0hCpvwGzwFzXPjKH1UwNsHIXSZQfnOCVilHczfBzmBR r9NKKjPnIifR6jGDKqD9GdmMB4IGtlNi2tGFm+Nu0KKZ7ii8DjYDdgOWGgWQ2ykp8ACFbJTlCfS1Q4cX ThU2W1TZhyUk9PHDRaJQBgZlZeUEWGHRmvWT4DKK4o gcQ0DM6SlOHlDEKzLYMywUWyKAr6D51yjGGrVPxnUW1CJKH+Pham+Ju5GATMqILCcDHAnCuLpDIPOIcFq R7GhE9TMe9XqH6BjEL58dCkhplAeRDbpUX6HUL2rBCSqYZTYEK4PgUKmvK4uhgRqVgAgSLSYXnOdV03j pPWfNATmDLEbHQWvKc1JTRQfP0GvmgFrlXcgmkZjGP UnJTKEUI0YIAdwhdCurDAoxGraQQ17cWhzHS3GMp4WWrRhDD5xau6TcTNxPp1EIUPzPZ0WFWIpRGAqEX YuKST6LYVlDtUxPUijNRYeKWAlNXB3HOBcXNFvKM5HUoQrPCFdXnZ5NTWnOJIhLJFqck9DTHUbIEEcVr QiSyMrBFQwVLLiMBmsYYAnGOOdMIP4XMVsFQHdHC7Z SaBkKUPdISMbSUIpJHWtSIBxhg0ODHNbWPQsFHQ1VFMlVFKcZMJoTBcrBOGsFDX9IYqeCTPjVCBsFI2X BuYoHPHwBIseABNtYMHlEIQufi8VKKAnJWVhWXk2DgClXZXnOMDzMCjvLVTmQMVqKHB0ZEJeXKQaPS4S XjViJXAlADX3JNPbRNSfKHTtvv3DNUOuYOIvShcmRc YuCDGuUBBeCZhxJZHcQNVyBGqzNJWzDVAwTB8SBlIpEDPgVBH0XOUrFGFhMKVzkg8TAMGcBBIlSQC2ZD LkWWQiSDKnPWeqVGJoPTR5NfBfEOYsZKMgHW7MWmPxWAAdAROwGMYlDFIlDMVhbe5INWTiFLSgIZK3BS NqSZFiUSZsBHxiYLDbSSE8DfyoKDRoYSLeLG9NYrSq ZUOvBIS9WTVbEMLuRTAuoh8IGVIdRGWyVmnjWHMrOSEwIEYuQGkdLJZdLWD1VUBfKMIxJGLlOM9QCoRr HBStFfy8DKexVMWfOQGyuu3YDSRpULAxCQiaGIKcTAPtJIQaZQblMUXdBGP0IVR2QZRsZSWxVK5CEgSc KWFxSvtkJuJpYCKmGJViij6GEVDvQRGfZAPgNCUrYL XeGCNcYHwpUOYgKGMjNiLpDBHuAXHeIV1BOtCeSWWlYvS9QYEhMMZvZVScai5HGHZsEJAcMAQeJOEtZW ElYHQbHCfjVPEhTEBeNUPkVUTrPUXeVD0LGaHeLFZlCaW0YAwvIFYpNWPwui3DNKWbNBOkMpE4XDCoYC HkVVFwJMqqRSIaMXRwSQh6XTRsHEXzEW2XKzFzPBzh ABPFItr6UZurS7v6TZJzOG8WL9Pkf5CnJbFdYWTRVJzrUK5wneYmKHToDu7LY8yWWtm4ICKlYWWsG0Bs SMPdQiy1GTO7FIQ2Nlg4TjLuZAUtQd6qVQK2DkEtRqNmRmC4VoIpCWHtYhacUqQhHKoqKRFuPKTxRsNm QW8ZDp2SWeZ1XKT5hTVrHm1YEyTuFJyVUsNsOW9BFLd= ID Date Data Source [id number] 04/07/2020 01:02:00 PM EDT [facility] ([facility]) Name Value Range Interpretation Code Description Data Rosanna rce(s) Supporting Document(s) Triglycerides 156 [facility] ([facility]) Cholesterol Laboratory test result 120-200 [facility] ([facility]) Cholesterol in LDL [Mass/volume] in Serum or Plasma by calculation 80 [facility] ([facility]) Chol/HDL Ratio [facility] HDL 38 40-60 [facility] ([facility]) ID Date Data Source [id number] 04/07/2020 01:02:00 PM EDT [facility] ([facility]) Name Value Range Interpretation Code Description Data Rosanna rce(s) Supporting Document(s) Carbon dioxide, total [Moles/volume] in Serum or Plasma 24 [facility] ([facility]) Chloride [Moles/volume] in Serum or Plasma 102 [facility] ([facility]) Calcium [Mass/volume] in Serum or Plasma 8.6 [facility] ([facility]) Sodium 135 [facility] ([facility] Blood Urea Nitrogen 15 5-21 [facility] ([facility]) Potassium [Moles/volume] in Serum or Plasma 4.1 [facility] ([facility]) Glucose 114 70-100 [facility] ([facility]) Creatinine 1.01 0.6-1.5 [facility] ([facility]) Glomerular filtration rate/1.73 sq M.pre dicted [Volume Rate/Area] in Serum or Plasma by Creatinine-based formula (MDRD) Laboratory test result [facility] ([facility]) ID Date Data Source [id number] 04/07/2020 01:02:00 PM EDT [facility] ([facility]) Name Value Range Interpretation Code Description Data Rosanna rce(s) Supporting Document(s) White Blood Count 5.5 4.3-10.9 [facility] (Card [facility]) Hemoglobin 14.3 13.0-17.0 [facility] ([facility]) Red Blood Count Laboratory test result 4.70-6.20 [facility] ([facility]) Platelets 181 130-400 [facility] ([facility]) Hematocrit 42.6 39.0-50.0 [facility] ([facility]) ID Date Data Source [id number] 04/07/2020 02:36:[address] [facility] Name Value Range Interpretation Code Description Data Rosanna rce(s) Supporting Document(s) Cholesterol [Mass/volume] in Serum or Plasma 150 mg/dL <200 [facility] Triglyceride [Mass/volume] in Serum or Plasma 156 mg/dL <150 H [facility] Cholesterol in HDL [Mass/volume] in Serum or Plasma 38 mg/dL >40 L [facility] Cholesterol in LDL [Mass/volume] in Serum or Plasma by calcu lation 80 mg/dL <100 [facility] Cholesterol in VLDL [Mass/volume] in Serum or Plasma by calc ulation 31 mg/dl 16-42 [facility] Cholesterol non HDL [Mass/volume] in Serum or Plasma 111 mg/dL <130 [facility] ID Date Data Source [id number] 04/07/2020 02:36:51 PM [facility] Name Value Range Interpretation Code Description Data Rosanna rce(s) Supporting Document(s) Magnesium [Mass/volume] in Serum or Plasma 1.9 mg/dL 1.6-2.4 [facility] ID Date Data Source [id number] 04/07/2020 02:36:51 PM [facility] Value Range Interpretation Code Description Data Rosanna rce(s) Supporting Document(s) Troponin T.cardiac [Mass/volume] in Serum or Plasma 0.35 ng/mL <0.01 [facility] Results called to and read back by ORTEGA VACA RN [id number] ID Date Data Source [id number] 04/07/2020 02:36:51 PM [facility] Value Range Interpretation Code Description Data Rosanna rce(s) Supporting Document(s) Bicarbonate [Moles/volume] in Serum 24 mmol/L 22-29 [facility] Chloride [Moles/volume] in Serum or Plasma 102 mmol/L 98-107 [facility] Creatinine [Mass/volume] in Serum or Plasma 1.01 mg/dL 0.70-1.20 [facility] Glucose [Mass/volume] in Serum or Plasma 114 mg/dL 70-140 [facility] Potassium [Moles/volume] in Serum or Plasma 4.1 mmol/L 3.4-5.1 [facility] Hemolyzed Sodium [Moles/volume] in Serum or Plasma 135 mmol/L 136-145 L [facility] Urea nitrogen [Mass/volume] in Serum or Plasma 15 mg/dL 8-23 [facility] Anion gap 3 in Serum or Plasma 9 mmol/L 8-15 [facility] Osmolality of Serum or Plasma by calculation 282 mosm/kg 275-300 [facility] Creatinine/Urea nitrogen [Mass Ratio] in Serum or Plasma 15 [facility] Calcium [Mass/volume] in Serum or Plasma 8.6 mg/dL 8.8-10.2 L [facility] Glomerular filtration rate/1.73 sq M pre dicted among non-blacks [Volume Rate/Area] in Serum or Plasma by Creatinine-based formula (MDRD) >6 0 [facility] Glomerular filtration rate/1.73 sq M pre dicted among blacks [Volume Rate/Area] in Serum or Plasma by Creatinine-based formula (MDRD) >60 [facility] ID Date Data Source [id number] 04/07/2020 02:37:15 PM [facility] Value Range Interpretation Code Description Data Rosanna rce(s) Supporting Document(s) Prothrombin time (PT) 13.1 s 12.5-14.9 [facility] TEST ADDED AT UNIT'S REQUEST INR in Platelet poor plasma by Coagulation assay 0.99 [facility] Routine intensity oral anticoagulation I NR is typically 2.0-3.0. Target INR must be clinically individualized.TEST ADDED AT UNIT'S REQUEST ID Date Data Source [id number] 04/07/2020 02:37:15 PM [facility] Value Range Interpretation Code Description Data Rosanna rce(s) Supporting Document(s) Heparin unfractionated [Units/volume] in Platelet poor plasma by Chromogenic method [facility] ConfirmedTEST ADDED AT UNIT'S REQUEST ID Date Data Source [id number] 04/07/2020 02:48:24 PM [facility] Value Range Interpretation Code Description Data Rosanna rce(s) Supporting Document(s) Leukocytes [#/volume] in Blood by Automated count 5.5 10*3/uL 4-10 [facility] Erythrocytes [#/volume] in Blood by Automated count 4.67 10*6/uL 4.6- 6.1 [facility] Hemoglobin [Mass/volume] in Blood 14.3 g/dL 13.5-18 [facility] Hematocrit [Volume Fraction] of Blood by Automated count 42.6 % 4 1-53 [facility] Erythrocyte mean corpuscular volume [Entitic volume] by Auto mated count 91.3 fL 80-96 [facility] Erythrocyte mean corpuscular hemoglobin [Entitic mass] by Automated count 30.6 pg 27-33 [facility] Erythrocyte mean corpuscular hemoglobin concentration [Mass/volume] by Automated count 33.5 g/dL 32.0-36.0 [facility] E[facility]th[facility] distribution width [Ratio] by Automated count 14.1 % 11.5-14.5 [facility] Platelets [#/volume] in Blood by Automated count 181 10*3/uL 150-400 [facility] ID Date Data Source [id number] 04/07/2020 10:56:11 AM EDT [facility] Name Value Range Interpretation Code Description Data Rosanna rce(s) Supporting Document(s) Progress Note [facility] VFNMJg8tPcWYMlJc22/NPTikXFPjp6IxYTxoHBr4TIcpDBAcO1ZzWWI7kN0aNPJ4CNdPXlSvTiXbBHUy lbm [file] ICAgICAgICAgICAgICAgICAgICAgICAgICAgICAgICAgICAgICAgICAgICAgICAgICAgICAgICAgICAg ICAgICAgICAgICAgICAgICAgICAgICAgICAgICAgDQogICAgICAgICAgICAgICAgICAgICAgICAgICAg ICAgICAgICAgICAgICAgICAgICAgICAgICAgICAgIC AgICAgICAgICAgICAgICAgICAgICAgICAgICAgICAgICAgICAgICAgDQogICAgICAgICAgICAgICAgIC AgICAgICAgICAgICAgICAgICAgICAgICAgICAgICAgICAgICAgICAgICAgICAgICAgICAgICAgICAgIC AgICAgICAgICAgICAgICAgICAgICAgDQogICAgICAg ICAgICAgICAgICAgICAgICAgICAgICAgICAgICAgICAgICAgICAgICAgICAgICAgICAgICAgICAgICAg ICAgICAgICAgICAgICAgICAgICAgICAgICAgICAgICAgDQogICAgICAgICAgICAgICAgICAgICAgICAg ICAgICAgICAgICAgICAgICAgICAgICAgICAgICAgIC AgICAgICAgICAgICAgICAgICAgICAgICAgICAgICAgICAgICAgICAgICAgDQogICAgICAgICAgICAgIC AgICAgICAgICAgICAgICAgICAgICAgICAgICAgICAgICAgICAgICAgICAgICAgICAgICAgICAgICAgIC AgICAgICAgICAgICAgICAgICAgICAgICAgDQogICAg ICAgICAgICAgICAgICAgICAgICAgICAgICAgICAgICAgICAgICAgICAgICAgICAgICAgICAgICAgICAg ICAgICAgICAgICAgICAgICAgICAgICAgICAgICAgICAgICAgDQogICAgICAgICAgICAgICAgICAgICAg ICAgICAgICAgICAgICAgICAgICAgICAgICAgICAgIC AgICAgICAgICAgICAgICAgICAgICAgICAgICAgICAgICAgICAgICAgICAgICAgDQogICAgICAgICAgIC AgICAgICAgICAgICAgICAgICAgICAgICAgICAgICAgICAgICAgICAgICAgICAgICAgICAgICAgICAgIC AgICAgICAgICAgICAgICAgICAgICAgICAgICAgDQog ICAgICAgICAgICAgICAgICAgICAgICAgICAgICAgICAgICAgICAgICAgICAgICAgICAgICAgICAgICAg JMLsESSaCBSsWIGdDSNwQLLzDKBvYGRvUYHwROOuCREsNWOoPKQzWGb5Y8ucMWIkGGUtTQ0iCCw9Er2+ TEmSLeJvHOE3cqEjkA0KDQ4jf8ZrRDcqQIVht4PsCJ j9XJ3PAWWtCQgvDV2FMFsasu1XIKKhCRWlnXEKu0woSxTxJDK4MMJpBrbvXQ0EEXWmI6lnkbZnSAEvIP FCNO9TOpMpK6StuA34UZSEDj9+LAwkckHnJaiXYoV0UMCoz5PhYRc0AO4LEQCfFnbwi9ItMKUfOUKHSM deTJ3TIRH7MIZ2DHHiNc0XMXMvB607udTxTZ5ERk5V KeOwEV8ldc1PARQpLCZuUtfLYsx4TNfqPV9KcITuMHiPfe3imkQcgqGWu7GqwiOuvTKPIUCab3JnRTLV IWFbfDGeZRIBPfXylUTeTB0zLR1mXHHmABZtWoT2MJNKDI2CNSRaPWFmyGMnLFWcSWYGZM2QCBxlMWL1 DGCsbmQbxNNgSHbhIU6LFNSyswLlJRPyNSQOOCa+Pg 3QAS7au4VxROowNpUoGA8lfk6YUXlPCwWtY1K5nDLqL7D5XGpbOu5CMMYrILXuYYNjDZAYRAopOJ1IBF 9qzbZ3CF1BuHVzAUFuFVOhfLTnBMw2Y70giITuYNojJE0DBQN+Pham+Ma8DNGDgRFNnXVUuNcQzURCYNu RiR5XbB9JYj3IgM3BoZV33eJqrqnMiOOkxSN6UUW4c ITGpAHFQRN5XsWNbhS8xkuYmYQDdYCYDGdSbP15gsMGoDGQsUNLnRAHrTg5HYUGcO6IzfzTnxUzjdnUz FVYbCCLKHC9FPViktrTpnOIznLzqRA80cHtxHF7XBq6OBzUrRJ9qvl9PqDCwXg4ZZHBeCl6TMSSgZTQr YOGsOOC5AROvBxXxCFejMWEzWVFxPWX2ACTsZBRzCF 4ONuIjHPHuYLT2MBOnVIEoCJGxxm5ATRHpWXRnVkZzRxEeDKSvPRVlMSdsYJUzNGIlTJK5CCWfLZSeUI 7OXvExEEXuNNF9FyJvXDAmTYXsll5XPJNuBEGdOKg1KgTiHIWcNPWoPOxdARWiMASpToC8NBEcGZPbJQ 6UBhUpNZFoKXN8WuJqBQLpIFJons3WSEDsEZQcKqRp CaDcPYXjKMYkFVdjXASyYUW0MLsuGFHlFGJlLB6BOlLsNDCjYWCqYxNsBXMfHVVnph4YQNXlEFNsIZM6 EOJxHUFuKHTuKPujOSMuULY6WWFwMMInNPHpFQ3NFvFhNDOfFGLtROWdHCQyKONmwl0CZTCnJUEsXeK3 FfYgPLHcQLKdQVgqHMDwCOM2TQQ6YVVkRAZiIF7PJr ErXPgiFJHFCsj0GGvrG3n1RWLdMm3KR2Xon9CvMFVsNSJWHBzrTA4fjuNzAGDcIr8ZF8cZQusjAnI4Ti B1VREdOTVsABB0PXw6IZHmABLnBfJcIyK0Lt7xQMSvZlBnNwE5AqNwBxS4WGN0ATWiURCgIKQ9NgF9QM C7SyZfWF8OZv4ADbY5JPC5oLZcZu1UVyu7ZD1IHTJZO8URKt== ID Date Data Source [id number] 04/07/2020 09:02:00 AM EDT [facility] Name Value Range Interpretation Code Description Data Rosanna rce(s) Supporting Document(s) Troponin I 0.000-0.056 PH [facility] tavo VÁSQUEZ RN read back critical information 04/07/20 0901 [facility] ID Date Data Source [id number] 04/07/2020 02:48:00 AM EDT [facility] Name Value Range Interpretation Code Description Data Rosanna rce(s) Supporting Document(s) Respiratory specimen severe acute respir atory syndrome coronavirus 2 (SARS-CoV-2) RNA [facility] This lab was ordered by [facility] and reported by . ID Date Data Source [id number] 04/07/2020 02:47:00 AM EDT [facility] First test? YESEmployed in healthcare? NOSymptomatic per CDC? NOIf yes date of onset? 04/07/20Hospitalized? NOICU? NOResident in congregated care? ex alf, ARC NO? NO Name Value Range Interpretation Code Description Data Rosanna rce(s) Supporting Document(s) SARS-CoV-2 RNA Negative Normal (applies to non-numeric r esults) [facility] Negative results should be treated as pr [...] Certificate of Accreditation. Factsheets for healthcare providers: https://www.fda.gov/media/148346/download Factsheets for patients: https://www.fda.gov/media/956754/download THIS IS A STATE REPORTABLE COMMUNICABLE DISEASE. Manual entry verified by Veronica Mcgowan 04/07/20 0245 ID Date Data Source [id number] 04/07/2020 02:00:00 AM T [facility] Name Value Range Interpretation Code Description Data Rosanna rce(s) Supporting Document(s) Troponin I 0.000-0.056 PH [facility] tavo MUHAMMAD RN read back critical informati on 04/07/20 0158 LAB.[facility] ID Date Data Source [id number] 04/07/2020 02:00:00 AM [facility] Name Value Range Interpretation Code Description Data Rosanna rce(s) Supporting Document(s) Lipase 119 U/L 73-393 Normal (applies to non-numeric resul ts) [facility] ID Date Data Source [id number] 04/07/2020 02:00:00 AM [facility] Name Value Range Interpretation Code Description Data Rosanna rce(s) Supporting Document(s) Sodium 138 mmol/L 136-145 Normal (applies to non-numeric resul ts) [facility] Potassium 3.5-5.1 Normal (applies to non-numeric resul ts) [facility] Chloride 101 mmol/L 98-107 Normal (applies to non-numeric resul ts) [facility] Carbon Dioxide CO2 21-32 Normal (applies to non-numer ic results) [facility] Anion Gap 5.0-16.0 Normal (applies to non-numeric resul ts) [facility] BUN 17 mg/dL 7-18 Normal (applies to non-numeric results) [facility] Creatinine,Serum 0.8-1.5 Normal (applies to non-numeric results) [facility] GFR >60 Normal (applies to non-numeric results) [facility] Glucose Level 98 mg/dL 60-99 Normal (applies to non-numeric re sults) [facility] Reference range is only applicable when patient is fasting Note the following drug interference: Sulfasalazine Sulfapyridine Can see falsely depressed Can see falsely elevated result with up to 17% results with up to 11% decrease in measurement increase in measurement Recommend patients be collected for this test prior to administration of either drug. Calcium 8.5-10.1 Normal (applies to non-numeric resul ts) [facility] Bilirubin,Total 0.1-1.9 Normal (applies to non-numeric results) [facility] SGOT(AST) 16 U/L 15-37 Normal (applies to non-numeric resul ts) [facility] Note the following drug interference: Sulfasalazine Sulfapyridine Can see falsely depressed Can see falsely elevated result with up to 10% results with up to 10% decrease in measurement increase in measurement Recommend patients be collected for this test prior to administration of either drug. SGPT(ALT) 28 U/L 12-78 Normal (applies to non-numeric resul ts) [facility] Note the following drug interference: Sulfasalazine Sulfapyridine Can see falsely depressed Can see falsely elevated result with up to 29% results with up to 10% decrease in measurement increase in measurement Recommend patients be collected for this test prior to administration of either drug. Alkaline Phosphatase 84 U/L 38-126 Normal (applies to non-num kyle results) [facility] can increase Alkaline Phosp le vels up to 2 times the normal adult value. Normal values for children and adolescents are 2 to 3 times the normal adult value. Total Protein 6.0-8.2 Normal (applies to non-numeric re sults) [facility] Albumin Level 3.4-5.0 Normal (applies to non-numeric re sults) [facility] ID Date Data Source [id number] 04/07/2020 01:48:00 AM EDT [facility] Name Value Range Interpretation Code Description Data Rosanna rce(s) Supporting Document(s) B-Type Natriuretic Peptide BNP <450 Above high normal [facility] Results of this test should always be us ed in conjunction with the patients medical history, clinical presentation, and other findings. ID Date Data Source [id number] [facility] Value Range Interpretation Code Description Data Rosanna rce(s) Supporting Document(s) D-Dimer,Quant 0.19-0.50 Above high normal [facility] The negative predictive value for DVT [...] on anticoagulant therapy. ID Date Data Source [id number] 04/07/2020 01:25:00 AM [facility] Name Value Range Interpretation Code Description Data Rosanna rce(s) Supporting Document(s) PT 9.2-11.7 Normal (applies to non-numeric results) [facility] INR Normal (applies to non-numeric results) [facility] The use of INR is restricted to patients on stable oral anticoagulant. Therapeutic Range: 2.0 - 3.0 High Risk Range: 2.5 - 3.5 ID Date Data Source [id number] 04/07/2020 01:25:00 AM T [facility] Name Value Range Interpretation Code Description Data Rosanna rce(s) Supporting Document(s) PTT 23.8-37.9 Normal (applies to non-numeric results) [facility] ID Date Data Source [id number] 04/07/2020 01:08:00 AM [facility] Name Value Range Interpretation Code Description Data Rosanna rce(s) Supporting Document(s) White Blood Count 3.5-10.5 Normal (applies to non-numeri c results) [facility] Red Blood Count 4.30-5.70 Normal (applies to non-numeric results) [facility] Hemoglobin 13.5-17.5 Normal (applies to non-numeric resul ts) [facility] Hematocrit 38.8-50.0 Normal (applies to non-numeric resul ts) [facility] Mean Corpuscular Volume 81.2-95.1 Normal (applies to non- numeric results) [facility] Mean Corpuscular Hgb 25.6-32.2 Normal (applies to non-num kyle results) [facility] Mean Corpuscular Hgb Conc 32.0-36.0 Normal (applies to no n-numeric results) [facility] Red Cell Distribution Width 11.8-15.6 Normal (appli es to non-numeric results) [facility] Platelet Count 215 x10 3/uL 150-450 Normal (applies to non-numeric results) [facility] Mean Platelet Volume 9.4-12.4 Normal (applies to non-num kyle results) [facility] Neutrophils% (Auto) 31.0-71.0 Normal (applies to non-nume dasha results) [facility] Lymphocytes% (Auto) 20.0-55.0 Normal (applies to non-nume dasha results) [facility] Monocytes% (Auto) 4.0-12.0 Normal (applies to non-numeri c results) [facility] Eosinophils% (Auto) 1.0-8.0 Normal (applies to non-nume dasha results) [facility] Basophils% (Auto) 0.0-2.0 Normal (applies to non-numeri c results) [facility] Immature Granulocytes% (Auto) 0.0-2.0 Normal (kristina lies to non-numeric results) [facility] Neutrophils# (Auto) 1.50-6.20 Normal (applies to non-nume dasha results) [facility] Lymphocytes# (Auto) 1.20-4.00 Normal (applies to non-nume dasha results) [facility] Monocytes# (Auto) 0.00-0.90 Normal (applies to non-numeri c results) [facility] Eosinophils# (Auto) 0.00-0.50 Normal (applies to non-nume dasha results) [facility] Basophils# (Auto) 0.00-0.20 Normal (applies to non-numeri c results) [facility] Immature Granulocytes# (Auto) 0.00-7.00 No rmal (applies to non-numeric results) [facility] ID Date Data Source [id number] 04/07/2020 06:28:00 AM EDT [facility] Imaging Services Department Imaging Report [address] [address] %(RAD)RES..mtdd.print.filter("line") Name: ROBERT CERDA SR : 1935 Age/Sex: 84M Ordering Provider: Devon Song NP Med Rec #: [id number] Reg Status: DEP ER Room #: Date of Service: 04/06/20 Report Number: [id number] cc:Sushila Rubalcava MD Send Report To: [id number] XRP/XR Chest Xray Portable Reason for exam: [...] Date/Time: 04/07/20 0031 Transcribed Date/Time: 04/07/20 0628 Screen Printing Loader Unloader: PRASHANT Name Value Range Interpretation Code Description Data Rosanna rce(s) Supporting Document(s) Procedure Social History Code Duration Value Status Description Data Source(s ) Smoking 05/22/2020 12:00:00 AM EST Patient is a former smoker completed Patient is a former smoker [facility] ([facility]) Smoking 04/07/2020 12:00:00 AM EDT Unknown if ever smoked comp leted Unknown if ever smoked [facility] Vital Signs ID Date Data Source UNK Name Value Range Interpretation Code Description Data Source(s) Body weight 96.62 kg 96.62 kg eCW1 ([facility]) Body weight 213 [lb_av] 213 [lb_av] [facility] Body height 72 [in_i] 72 [in_i] eCW1 ([facility]) Body mass index (BMI) [Ratio] 28.88 kg/m2 28.88 kg/m2 eCW1 ([facility]) Body weight 213 [lb_av] 213 [lb_av] eCW1 ([facility]) Body weight 96.62 kg 96.62 kg eCW1 ([facility]) Body height 72 [in_i] 72 [in_i] eCW1 ([facility]) Body mass index (BMI) [Ratio] 28.88 kg/m2 28.88 kg/m2 eCW1 ([facility]) Body weight 213 [lb_av] 213 [lb_av] eCW1 ([facility]) Body weight 96.62 kg 96.62 kg eCW1 ([facility]) Body height 72 [in_i] 72 [in_i] eCW1 ([facility]) Body mass index (BMI) [Ratio] 28.88 kg/m2 28.88 kg/m2 eCW1 ([facility]) Systolic blood pressure 128 mm[Hg] 128 mm[Hg] e CW1 ([facility]) Diastolic blood pressure 84 mm[Hg] 84 mm[Hg] eCW1 ([facility]) Body weight 213.6 [lb_av] 213.6 [lb_av] eCW1 ([facility]) Body weight 96.89 kg 96.89 kg eCW1 ([facility]) Body height 72 [in_i] 72 [in_i] eCW1 ([facility]) Body mass index (BMI) [Ratio] 28.97 kg/m2 28.97 kg/m2 eCW1 ([facility]) Systolic blood pressure 124 mm[Hg] 124 mm[Hg] e CW1 ([facility]) Diastolic blood pressure 82 mm[Hg] 82 mm[Hg] eCW1 ([facility]) Heart rate 97 /min 97 /min eCW1 ([facility]) Respiratory rate 18 /min 18 /min eCW1 ([facility]) Body temperature 97.8 [degF] 97.8 [degF] eCW1 ( [facility]) Systolic blood pressure 132 mm[Hg] 132 mm[Hg] e CW1 ([facility]) Diastolic blood pressure 80 mm[Hg] 80 mm[Hg] eCW1 ([facility]) Body weight 212.6 [lb_av] 212.6 [lb_av] eCW1 ([facility]) Body weight 96.43 kg 96.43 kg eCW1 ([facility]) Body height 72 [in_i] 72 [in_i] eCW1 ([facility]) Body mass index (BMI) [Ratio] 28.83 kg/m2 28.83 kg/m2 eCW1 ([facility]) Body weight 213.4 [lb_av] 213.4 [lb_av] eCW1 ([facility]) Body height 72 [in_i] 72 [in_i] eCW1 ([facility]) Body mass index (BMI) [Ratio] 28.94 kg/m2 28.94 kg/m2 eCW1 ([facility]) Heart rate 93 /min 93 /min eCW1 ([facility]) Respiratory rate 18 /min 18 /min eCW1 ([facility]) Body temperature 96.2 [degF] 96.2 [degF] eCW1 ( [facility]) Systolic blood pressure 126 mm[Hg] 126 mm[Hg] e CW1 ([facility]) Diastolic blood pressure 70 mm[Hg] 70 mm[Hg] eCW1 ([facility]) Body weight 96.8 kg 96.8 kg eCW1 ([facility]) Body weight 213.6 [lb_av] 213.6 [lb_av] eCW1 ([facility]) Body height 72 [in_i] 72 [in_i] eCW1 ([facility]) Body mass index (BMI) [Ratio] 28.97 kg/m2 28.97 kg/m2 eCW1 ([facility]) Heart rate 77 /min 77 /min eCW1 ([facility]) Respiratory rate 18 /min 18 /min eCW1 ([facility]) Body temperature 97.9 [degF] 97.9 [degF] eCW1 ( [facility]) Systolic blood pressure 145 mm[Hg] 145 mm[Hg] e CW1 ([facility]) Diastolic blood pressure 69 mm[Hg] 69 mm[Hg] eCW1 ([facility]) Body weight 217.2 [lb_av] 217.2 [lb_av] eCW1 ([facility]) Body height 72 [in_i] 72 [in_i] eCW1 ([facility]) Body mass index (BMI) [Ratio] 29.45 kg/m2 29.45 kg/m2 eCW1 ([facility]) Heart rate 67 /min 67 /min eCW1 ([facility]) Respiratory rate 17 /min 17 /min eCW1 ([facility]) Body temperature 98.1 [degF] 98.1 [degF] eCW1 ( [facility]) Systolic blood pressure 122 mm[Hg] 122 mm[Hg] e CW1 ([facility]) Diastolic blood pressure 66 mm[Hg] 66 mm[Hg] eCW1 ([facility]) Body weight 97.070 kg 97.070 kg MEDENT ([facility] ) Systolic blood pressure 116 mm[Hg] 116 mm[Hg] M EDENT ([facility], ) Diastolic blood pressure 66 mm[Hg] 66 mm[Hg] MEDENT ([facility], ) Heart rate 73 /min 73 /min MEDENT ([facility] ) Oxygen saturation in Arterial blood by Pulse oximetry 98 % 98 % MEDENT ([facility]) Body surface area Derived from formula 2.19 m2 2.19 m2 [facility] ([facility]) Body height 72 [in_i] 72 [in_i] [facility] ([facility]) 6'0" Body weight 214.00 [lb_av] 214.00 [lb_av] MEDEN T ([facility]) Body mass index (BMI) [Ratio] 29.0 kg/m2 29.0 k g/m2 [facility] ([facility]) [place] body weight 178 [lb_av] 178 [lb_av] MEDEN T ([facility]) Body weight 218.4 [lb_av] 218.4 [lb_av] eCW1 ([facility]) Body height 72 [in_i] 72 [in_i] eCW1 ([facility]) Body mass index (BMI) [Ratio] 29.62 kg/m2 29.62 kg/m2 eCW1 ([facility]) Heart rate 75 /min 75 /min eCW1 ([facility]) Respiratory rate 17 /min 17 /min eCW1 ([facility]) Body temperature 97.6 [degF] 97.6 [degF] eCW1 ( [facility]) Systolic blood pressure 138 mm[Hg] 138 mm[Hg] e CW1 ([facility]) Diastolic blood pressure 79 mm[Hg] 79 mm[Hg] eCW1 ([facility]) Body weight 215.4 [lb_av] 215.4 [lb_av] eCW1 ([facility]) Body height 72 [in_i] 72 [in_i] eCW1 ([facility]) Body mass index (BMI) [Ratio] 29.21 kg/m2 29.21 kg/m2 W1 ([facility]) Heart rate 76 /min 76 /min eCW1 ([facility]) Respiratory rate 18 /min 18 /min eCW1 ([facility]) Body temperature 97.4 [degF] 97.4 [degF] eCW1 ( [facility]) Systolic blood pressure 135 mm[Hg] 135 mm[Hg] e CW1 ([facility]) Diastolic blood pressure 70 mm[Hg] 70 mm[Hg] eCW1 ([facility]) Body weight 214.6 [lb_av] 214.6 [lb_av] eCW1 ([facility]) Body height 72 [in_i] 72 [in_i] eCW1 ([facility]) Body mass index (BMI) [Ratio] 29.10 kg/m2 29.10 kg/m2 eCW1 ([facility]) Heart rate 57 /min 57 /min eCW1 ([facility]) Respiratory rate 19 /min 19 /min eCW1 ([facility]) Body temperature 96.8 [degF] 96.8 [degF] eCW1 ( [facility]) Systolic blood pressure 144 mm[Hg] 144 mm[Hg] e CW1 ([facility]) Diastolic blood pressure 91 mm[Hg] 91 mm[Hg] eCW1 ([facility]) Body weight 218 [lb_av] 218 [lb_av] eCW1 ([facility] Body height 72 [in_i] 72 [in_i] eCW1 ([facility]) Body mass index (BMI) [Ratio] 29.56 kg/m2 29.56 kg/m2 eCW1 ([facility]) Heart rate 86 /min 86 /min eCW1 ([facility]) Respiratory rate 18 /min 18 /min eCW1 ([facility]) Systolic blood pressure 128 mm[Hg] 128 mm[Hg] e CW1 ([facility]) Diastolic blood pressure 72 mm[Hg] 72 mm[Hg] eCW1 ([facility]) Body weight 224 [lb_av] 224 [lb_av] eCW1 ([facility]) Body height 72 [in_i] 72 [in_i] eCW1 ([facility]) Body mass index (BMI) [Ratio] 30.38 kg/m2 30.38 kg/m2 eCW1 ([facility]) Heart rate 58 /min 58 /min eCW1 ([facility]) Respiratory rate 18 /min 18 /min eCW1 ([facility]) Body temperature 97.3 [degF] 97.3 [degF] eCW1 ( [facility]) Systolic blood pressure 172 mm[Hg] 172 mm[Hg] e CW1 ([facility]) Diastolic blood pressure 74 mm[Hg] 74 mm[Hg] eCW1 ([facility]) Body height 72 [in_i] 72 [in_i] eCW1 ([facility]) Body weight 224 [lb_av] 224 [lb_av] eCW1 ([facility] Body temperature 98.2 [degF] 98.2 [degF] eCW1 ( [facility]) Heart rate 80 /min 80 /min eCW1 ([facility]) Respiratory rate 18 /min 18 /min eCW1 ([facility]) Body mass index (BMI) [Ratio] 30.38 kg/m2 30.38 kg/m2 eCW1 ([facility]) Systolic blood pressure 117 mm[Hg] 117 mm[Hg] e CW1 ([facility]) Diastolic blood pressure 72 mm[Hg] 72 mm[Hg] eCW1 ([facility]) Body weight 220 [lb_av] 220 [lb_av] eCW1 ([facility] Body height 72 [in_i] 72 [in_i] eCW1 ([facility]) Body mass index (BMI) [Ratio] 29.83 kg/m2 29.83 kg/m2 eCW1 ([facility]) Heart rate 75 /min 75 /min eCW1 ([facility]) Respiratory rate 18 /min 18 /min eCW1 ([facility]) Systolic blood pressure 124 mm[Hg] 124 mm[Hg] e CW1 ([facility]) Diastolic blood pressure 84 mm[Hg] 84 mm[Hg] eCW1 ([facility]) Body mass index (BMI) [Ratio] 29.56 kg/m2 29.56 kg/m2 eCW1 ([facility]) Body weight 218 [lb_av] 218 [lb_av] eCW1 ([facility] Body height 72 [in_i] 72 [in_i] eCW1 ([facility]) Heart rate 104 /min 104 /min eCW1 ([facility]) Respiratory rate 18 /min 18 /min eCW1 ([facility]) Systolic blood pressure 110 mm[Hg] 110 mm[Hg] e CW1 ([facility]) Diastolic blood pressure 66 mm[Hg] 66 mm[Hg] eCW1 ([facility]) Body mass index (BMI) [Ratio] 30.2 kg/m2 30.2 k g/m2 [facility] ([facility]) Heart rate 62 /min 62 /min [facility] ([facility]) Systolic blood pressure--sitting 127 mm[Hg] 127 mm[Hg] [facility] ([facility]) CBP, adult cuff/Ra Diastolic blood pressure--sitting 73 mm[Hg] 73 mm[Hg] [facility] ([facility]) CBP, adult cuff/Ra Body weight 223.00 [lb_av] 223.00 [lb_av] MEDEN T ([facility]) Body height 72 [in_i] 72 [in_i] [facility] ([facility]) 6'0" Body weight 219 [lb_av] 219 [lb_av] eCW1 ([facility]) Body height 72 [in_i] 72 [in_i] eCW1 ([facility]) Body mass index (BMI) [Ratio] 29.70 kg/m2 29.70 kg/m2 eCW1 ([facility]) Heart rate 68 /min 68 /min eCW1 ([facility]) Respiratory rate 16 /min 16 /min eCW1 ([facility]) Body temperature 98.2 [degF] 98.2 [degF] eCW1 ( [facility]) Systolic blood pressure 110 mm[Hg] 110 mm[Hg] e CW1 ([facility]) Diastolic blood pressure 68 mm[Hg] 68 mm[Hg] eCW1 ([facility]) Body weight 220.00 [lb_av] 220.00 [lb_av] MEDEN T ([facility]) Body height 72 [in_i] 72 [in_i] [facility] ([facility]) 6'0" Body mass index (BMI) [Ratio] 29.8 kg/m2 29.8 k g/m2 [facility] ([facility]) Heart rate 49 /min 49 /min [facility] ([facility]) Systolic blood pressure--sitting 150 mm[Hg] 150 mm[Hg] [facility] ([facility]) CBP, adult cuff/Ra Diastolic blood pressure--sitting 79 mm[Hg] 79 mm[Hg] [facility] ([facility]) CBP, adult cuff/Ra ID Date Data Source [id number] 05/01/2021 11:25:00 AM EDT [facility] Name Value Range Interpretation Code Description Data Source(s) Weight Measurement Method 8 8 [facility] Weight 3520 3520 [facility] Temperature Source 7 7 [facility] Temperature 98.8 98.8 [facility] Respiratory Effort 3 3 [facility] Respiratory Rate 22 22 [facility] Pulse Assessment Method 4 4 G [facility] Pulse Rate 64 64 [facility] 72 72 [facility] Pressure 146/88 146/88 [facility] ID Date Data Source [id number] 04/24/2021 11:37:00 AM EDT [facility] Name Value Range Interpretation Code Description Data Source(s) Weight Measurement Method 8 8 [facility] Weight 3520 [facility] Temperature Source 7 7 [facility] Temperature 97.5 97.5 [facility] Respiratory Effort 1 1 [facility] Respiratory Rate 16 16 [facility] Pulse Assessment Method 4 4 G [facility] Pulse Rate 57 57 [facility] Height 72 72 [facility] Blood Pressure 111/76 111/76 [facility] Weight Measurement Method 8 8 [facility] Weight 3520 [facility] Temperature Source 7 7 [facility] Temperature 97.5 97.5 [facility] Respiratory Effort 1 1 [facility] Respiratory Rate 16 16 [facility] Pulse Assessment Method 4 4 G [facility] Pulse Rate 64 64 [facility] Height 72 72 [facility] Blood Pressure 128/82 128/82 [facility] Weight Measurement Method 8 8 [facility] Weight 3520 [facility]20 [facility] Temperature Source 7 7 [facility] Temperature 97.5 97.5 [facility] Respiratory Effort 1 1 [facility] Respiratory Rate 16 16 [facility] Pulse Assessment Method 4 4 G [facility] Pulse Rate 64 64 [facility] Height 72 72 [facility] Blood Pressure 128/82 128/82 [facility] ID Date Data Source [id number] 12/12/2020 10:38:00 AM EDT [facility] Name Value Range Interpretation Code Description Data Source(s) Weight Measurement Method 8 8 [facility] Weight 3520 [facility]20 [facility] Temperature Source 7 7 [facility] Temperature 97.9 97.9 [facility] Respiratory Effort 1 1 [facility] Respiratory Rate 18 18 [facility] Pulse Assessment Method 4 4 G [facility] Pulse Rate 89 89 [facility] Height 72 72 [facility] Blood Pressure 106/92 106/92 [facility] Weight Measurement Method 8 8 [facility] Weight 3520 3520 [facility] Temperature Source 7 7 [facility] Temperature 97.9 97.9 [facility] Respiratory Effort 1 1 [facility] Respiratory Rate 18 18 [facility] Pulse Assessment Method 4 4 G [facility] Pulse Rate 89 89 [facility] Height 72 72 [facility] Blood Pressure 106/92 106/92 [facility] ID Date Data Source [id number] 04/24/2020 05:42:[address] [facility] Name Value Range Interpretation Code Description Data Source(s) WEIGHT RECORDED 223.33 lb 223.33 lb [facility] WEIGHT RECORDED 226.85 lb 226.85 lb [facility] WEIGHT RECORDED 226.85 lb 226.85 lb [facility] Body height Measured 72.01 in 72.01 in [facility] WEIGHT RECORDED 226.85 lb 226.85 lb [facility] Body height Measured 72 in 72 in [facility] TRANSFER FROM [facility] ID Date Data Source [id number] 04/08/2020 11:56:00 AM EDT [facility] Name Value Range Interpretation Code Description Data Source(s) Weight Measurement Method 8 8 [facility] Weight 3536 3536 [facility] Temperature Source 7 7 [facility] Temperature 98.1 98.1 [facility] Respiratory Effort 1 1 [facility] Respiratory Rate 18 18 [facility] Pulse Assessment Method 4 4 G [facility] Pulse Rate 60 60 [facility] Blood Pressure 143/87 143/87 [facility] Weight Measurement Method 8 8 [facility] Weight 3536 [facility]36 [facility] Temperature Source 7 7 [facility] Temperature 97 97 [facility] Respiratory Effort 1 1 [facility] Respiratory Rate 22 22 [facility] Pulse Assessment Method 4 4 G [facility] Pulse Rate 60 60 [facility] Blood Pressure 171/94 171/94 [facility] Weight Measurement Method 8 8 [facility] Weight 3536 3536 [facility] Temperature Source 7 7 [facility] Temperature 97 97 [facility] Respiratory Effort 1 1 [facility] Respiratory Rate 24 24 [facility] Pulse Assessment Method 4 4 G [facility] Pulse Rate 101 101 [facility] Blood Pressure 179/101 179/101 [facility] Patient Treatment Plan of Care Planned Activity Planned Date Details Description Data Source (s) Cephalexin 500 MG Oral Capsule 04/09/2021 12:00:00 AM EDT eCW1 ([facility]) Vitamin B12 1000 MCG 02/20/2021 12:00:00 AM EDT eCW1 ([facility]) Vitamin B12 1000 MCG 02/20/2021 12:00:00 AM EDT eCW1 ([facility]) Vitamin B12 1000 MCG 02/20/2021 12:00:00 AM EDT eCW1 ([facility]) Vitamin B12 1000 MCG 02/20/2021 12:00:00 AM EDT eCW1 ([facility]) Vitamin B12 1000 MCG 02/20/2021 12:00:00 AM EDT eCW1 ([facility]) Vitamin B12 1000 MCG 02/20/2021 12:00:00 AM EDT eCW1 ([facility]) Prednisone 20 MG Oral Tablet 11/07/2020 12:00:00 AM EDT eCW1 ([facility]) Prednisone 20 MG Oral Tablet 11/07/2020 12:00:00 AM EDT eCW1 ([facility]) gabapentin 100 MG Oral Capsule 10/24/2020 12:00:00 AM EDT eCW1 ([facility]) Diclofenac Sodium 0.01 MG/MG Topical Gel [Voltaren] 08/22/19 21 12:00:00 AM EST eCW1 ([facility]) Diclofenac Sodium 0.01 MG/MG Topical Gel [Voltaren] 08/22/19 12:00:00 AM EST eCW1 ([facility]) Diclofenac Sodium 0.01 MG/MG Topical Gel [Voltaren] 08/22/19 21 12:00:00 AM EST eCW1 ([facility]) Diclofenac Sodium 0.01 MG/MG Topical Gel [Voltaren] 08/22/19 21 12:00:00 AM EST eCW1 ([facility]) Diclofenac Sodium 0.01 MG/MG Topical Gel [Voltaren] 08/22/19 12:00:00 AM EST eCW1 ([facility]) Diclofenac Sodium 0.01 MG/MG Topical Gel [Voltaren] 08/22/19 12:00:00 AM EST eCW1 ([facility]) Diclofenac Sodium 0.01 MG/MG Topical Gel [Voltaren] 08/22/19 12:00:00 AM EST eCW1 ([facility]) Diclofenac Sodium 0.01 MG/MG Topical Gel [Voltaren] 08/22/19 12:00:00 AM EST eCW1 ([facility]) cefdinir 300 MG Oral Capsule 07/15/2020 12:00:00 AM EST eCW1 ([facility]) clopidogrel 75 MG Oral Tablet 05/07/2020 12:00:00 AM EST eCW1 ([facility]) clopidogrel 75 MG Oral Tablet 05/07/2020 12:00:00 AM EST eCW1 ([facility]) clopidogrel 75 MG Oral Tablet 05/07/2020 12:00:00 AM EST eCW1 ([facility]) clopidogrel 75 MG Oral Tablet 05/07/2020 12:00:00 AM EST eCW1 ([facility]) atorvastatin 40 MG Oral Tablet 05/07/2020 12:00:00 AM EST eCW1 ([facility]) Aspirin 81 MG Delayed Release Oral Tablet 05/07/2020 12:00:00 AM ES T eCW1 ([facility]) clopidogrel 75 MG Oral Tablet 05/07/2020 12:00:00 AM EST eCW1 ([facility]) Omeprazole 20 MG Delayed Release Oral Capsule 04/17/2020 12:00:00 A M EDT eCW1 ([facility]) Omeprazole 20 MG Delayed Release Oral Capsule 04/17/2020 12:00:00 A M EDT eCW1 ([facility]) Omeprazole 20 MG Delayed Release Oral Capsule 04/17/2020 12:00:00 A M EDT eCW1 ([facility]) clopidogrel 75 MG Oral Tablet 04/10/2020 12:00:00 AM [facility] Aspirin 81 MG Chewable Tablet 04/10/2020 12:00:00 AM [facility] Metoprolol Tartrate 50 MG Oral Tablet 04/09/2020 12:00:00 AM [facility] atorvastatin 40 MG Oral Tablet 04/09/2020 12:00:00 AM [facility] Nitroglycerin 0.4 MG Sublingual Tablet 04/07/2020 12:09:17 PM [facility]
[2021-05-07] MEDS ORDERED: ACETAMINOPHEN TAB 650MG DOSE (2X325MG) PO PRN (10:55)
--- OUTSIDE RECORDS SUMMARY | 2021-05-07 11:23 | CCD ---
Author Author [facility] Organization [facility] Address Unknown Phone Unavailable Care Team Providers Care Documentation Spec Name Role Phone Deepak Markham Ciara NUTTER UP Unavailable Unavailable Shahrzad, L Ciara NUTTER UP Unavailable Unavailable Shahrzad, L Ciara NUTTER UP Unavailable Unavailable Shahrzad, L Ciara NUTTER UP Unavailable Unavailable Shahrzad, L Ciara NUTTER UP Unavailable Unavailable Shahrzad, L Ciara NUTTER UP Unavailable Unavailable Shahrzad, L Ciara NUTTER UP Unavailable Unavailable Shahrzad, L Ciara NUTTER UP Unavailable Unavailable Shahrzad, L Ciara NUTTER UP Unavailable Unavailable Shahrzad, L Ciara NUTTER UP Unavailable Unavailable Shahrzad, L Ciara NUTTER UP Unavailable Unavailable Shahrzad, L Ciara NUTTER UP Unavailable Unavailable Shahrzad, L Ciara NUTTER UP Unavailable Unavailable Shahrzad, L Ciara NUTTER UP Unavailable Unavailable Shahrzad, L Ciara NUTTER UP Unavailable Unavailable Shahrzad, L Ciara NUTTER UP Unavailable Unavailable Shahrzad, L Ciara NUTTER UP Unavailable Unavailable Shahrzad, L Ciara NUTTER UP Unavailable Unavailable Shahrzad, L Ciara NUTTER UP Unavailable Unavailable Shahrzad, L Ciara NUTTER UP Unavailable Unavailable Shahrzad, L Ciara NUTTER UP Unavailable Unavailable Shahrzad, L Ciara NUTTER UP Unavailable Unavailable Shahrzad, L Ciara NUTTER UP Unavailable Unavailable Shahrzad, L Ciara NUTTER UP Unavailable Unavailable Shahrzad, L Ciara NUTTER UP Unavailable Unavailable Cougler, S Devon NUTTER UP Unavailable Unavailable Cougler, S Devon NUTTER UP Unavailable Unavailable Cougler, S Devon NUTTER UP Unavailable Unavailable Cougler, S Devon NUTTER UP Unavailable Unavailable Cougler, S Devon NUTTER UP Unavailable Unavailable Cougler, S Devon NUTTER UP Unavailable Unavailable Cougler, S Devon NUTTER UP Unavailable Unavailable Cougler, S Devon NUTTER UP Unavailable Unavailable Cougler, S Devon NUTTER UP Unavailable Unavailable Cougler, S Devon NUTTER UP Unavailable Unavailable Cougler, S Devon NUTTER UP Unavailable Unavailable Cougler, S Devon NUTTER UP Unavailable Unavailable Cougler, S Devon NUTTER UP Unavailable Unavailable Cougler, S Devon NUTTER UP Unavailable Unavailable Cougler, S Devon NUTTER UP Unavailable Unavailable Cougler, S Devon NUTTER UP Unavailable Unavailable Cougler, S Devon NUTTER UP Unavailable Unavailable Cougler, S Devon NUTTER UP Unavailable Unavailable Cougler, S Devon NUTTER UP Unavailable Unavailable Cougler, S Devon NUTTER UP Unavailable Unavailable Cougler, S Devon NUTTER UP Unavailable Unavailable Cougler, S Devon NUTTER UP Unavailable Unavailable Cougler, S Devon NUTTER UP Unavailable Unavailable Cougler, S Devon NUTTER UP Unavailable Unavailable Cougler, S Devon NUTTER UP Unavailable Unavailable Cougler, S Devon NUTTER UP Unavailable Unavailable Cougler, S Devon NUTTER UP Unavailable Unavailable Cougler, S Devon NUTTER UP Unavailable Unavailable Cougler, S Devon NUTTER UP Unavailable Unavailable Cougler, S Devon NUTTER UP Unavailable Unavailable Cougler, S Devon NUTTER UP Unavailable Unavailable Cougler, S Devon NUTTER UP Unavailable Unavailable Cougler, S Devon NUTTER UP Unavailable Unavailable Cougler, S Devon NUTTER UP Unavailable Unavailable Cougler, S Devon NUTTER UP Unavailable Unavailable Cougler, S Devon NUTTER UP Unavailable Unavailable Cougler, S Devon NUTTER UP Unavailable Unavailable Cougler, S Devon NUTTER UP Unavailable Unavailable Cougler, S Devon NUTTER UP Unavailable Unavailable Cougler, S Devon NUTTER UP Unavailable Unavailable Cougler, S Devon NUTTER UP Unavailable Unavailable Cougler, S Devon NUTTER UP Unavailable Unavailable Cougler, S Devon NUTTER UP Unavailable Unavailable Cougler, S Devon NUTTER UP Unavailable Unavailable Cougler, S Devon NUTTER UP Unavailable Unavailable JONO, A KAHTIA PA Unavailable Unavailable JONO, A KATHIA PA [...] LEE, KATHIA JOHN DO Unavailable Unavailable LEE, KATHAI JOHN DO Unavailable Unavailable LEE, KATHIA JOHN [...] ARROYO MD Unavailable Unavailable ZEGIL, D VANDANA PRINCIPAL WEB DEVELOPER Unavailable Unavailable ZEGIL, D VANDANA PRINCIPAL WEB DEVELOPER Unavailable Unavailable ZEGIL, D VANDANA PRINCIPAL WEB DEVELOPER Unavailable Unavailable ERICKADEA ROMO MD Unavailable Unavailable [...] ANTECOL, Juanis LAWS MD Unavailable Unavailable ANTECOL, Jaunis LAWS MD Unavailable Unavailable ANTECOL, Juanis LAWS [...] is protected by Article 27-F of the [facility] Public Health law. If you continue you may have access to information: Regarding HIV / AIDS; Provided by facilities licensed or operated by the [facility] Office of Mental Health; or Provided by the [facility] Office for People With Developmental Disabilities. If such information is present, then the following [facility] mandated warning applies: This information has [...] law may result in a fine or fpc sentence or both. A general authorization for the release of medical or other information is NOT sufficient authorization for further disc losure. Allergies and Adverse Reactions Type Description Substance Reaction Status Data Source(s ) Drug allergy Drug allergy No Known Allergies [facility] Propensity to adverse reactions NO KNOWN ALLERGIES NO KNOWN ALLERGIES [facility] Family History Family Member Name Family Member Gender Family Member Status Date o f Status Description Data Source(s) Unknown Unknown Problem MEDENT ([facility] 1 Unknown Unknown Problem MEDENT ([facility]) Unknown Male Problem MEDENT ([facility] () Unknown Male Problem MEDENT ([facility]) Encounters Encounter Providers Location Date Indications Data Source(s ) Emergency Attender: Maite Hutchinson MDAttender: Maite Hutchinson MD ED-ED 04/30/2021 11:21:00 AM EDT - 04/30/2021 06:25:00 PM EDT CHEST PAIN [facility] CHEST PAIN Patient discharged. [place] [address] [place] [address] 04/29/2021 12:00:00 AM EDT eCW1 ([facility]) Emergency Attender: VANDANA ARCEO [facility] ED-ED 03/29 12:25:00 PM EDT - 04/23/2021 02:00:00 PM EDT FELL HIT HEAD [facility] FELL HIT HEAD Patient discharged. [place] [address] [facility] [place] [address] 04/22/2021 12:00:00 AM EDT eCW1 ([facility]) Outpatient Attender: UNKNOWN CPSCAORT-LABEJN 04/18/2021 03:08:[address] [facility] Outpatient Attender: DEA BARNETT MD ED-LABGH 2020 10:16:00 AM EDT - 04/18/2021 10:17:00 AM EDT COGNITIVE DYSFUNCTION [facility] COGNITIVE DYSFUNCTION Patient discharged. Office Visit Attender: DEA BARNETT MD Main office - [facility] 04/17/2021 01:30:00 PM EDT MEDENT ([facility] turner) [place] [address] [place] [address] 04/15/2021 12:00:00 AM EDT eCW1 ([facility]) [place] [address] [place] [address] 04/11/2021 12:00:00 AM EDT eCW1 ([facility]) [place] [address] [place] [address] 04/08/2021 12:00:00 AM EDT eCW1 ([facility]) (MMS 2) Mohs 2 [address] [place] [address] 04/03/2021 12:00:00 AM EDT eCW1 ([facility]) [place]patient [address] [facility] [place] [address] 03/28/2021 12:00:00 AM EDT eCW1 ([facility]) Unknown [address] [place] [address] 03/27/2021 12:00:00 AM EDT eCW1 ([facility]) Unknown [address] [place] [address] 03/10/2021 12:00:00 AM EDT eCW1 ([facility]) [place] [address] [facility] [place] [address] 03/06/2021 12:00:00 AM EDT eCW1 ([facility]) Unknown [address] [facility] [place] [address] 03/04/2021 12:00:00 AM EDT eCW1 ([facility]) Unknown [address] [facility] [place] [address] 02/20/2021 12:00:00 AM EDT [facility]CW1 [facility] [place] [address] [facility] [place] [address] 02/19/2021 12:00:00 AM EDT eCW1 [facility] [place] [address] [facility] [place] [address] 02/19/2021 12:00:00 AM EDT eCW1 [facility] [place] [address] [facility] [place] [address] 02/10/2021 12:00:00 AM EDT eCW1 ([facility] [place] [address] [facility] [place] [address] 02/10/2021 12:00:00 AM EDT eCW1 ([facility]) Outpatient Attender: Ciara Hemphill/Mehrdad/Pola/James 01/22/2021 01:30:00 PM EDT MEDENT ([facility]) [place] [address] [facility] [place] [address] 01/22/2021 12:00:00 AM EDT eCW1 ([facility] [place] [address] [facility] [place] [address] 12/20/2020 12:00:00 AM EDT eCW1 ([facility] Outpatient [address] [facility] [place] [address] 12/19/2020 12:00:00 AM EDT eCW1 ([facility]) Office Visit Attender: EUSEBIA BERMUDEZ MD Main Office 11/11/2020 10: 34:00 AM EDT MEDENT ([facility]) Unknown [address] [facility] [facility] [place] [address] 11/07/2020 12:00:00 AM EDT eCW1 ([facility]) Unknown [address] [facility] [place] [address] 11/06/2020 12:00:00 AM EDT eCW1 ([facility]) Unknown [address] [facility] [place] [address] 11/05/2020 12:00:00 AM EDT eCW1 ([facility]) Outpatient [address] [facility] [place] [address] 10/31/2020 12:00:00 AM EDT eCW1 ([facility]) Outpatient [address] [facility] [place] [address] 10/24/2020 12:00:00 AM EDT eCW1 ([facility]) Emergency Attender: DINA GOLDEN MD ED-ED 0 10/22/2020 11:00:00 AM EDT - 10/22/2020 01:28:00 PM EDT R LEG PAIN [facility] R LEG PAIN Patient discharged. Unknown [address] [facility] [place] [address] 10/22/2020 12:00:00 AM EDT eCW1 ([facility]) Unknown [address] [facility] [place] [address] 10/22/2020 12:00:00 AM EDT eCW1 ([facility]) Unknown [address] [facility] [place] [address] 09/24/2020 12:00:00 AM EDT eCW1 ([facility]) Unknown [address] [facility] [place] [address] 09/06/2020 12:00:00 AM EST eCW1 ([facility]) (Cysto1) Urology [address] [place] [address] 09/04/2020 12:00:00 AM EST eCW1 ([facility]) Outpatient [address] [facility] [place] [address] 08/27/2020 12:00:00 AM EST eCW1 ([facility]) Office Visit Attender: EUSEBIA BERMUDEZ MD Main Office 08/26/2020 09: 55:00 AM EST MEDENT ([facility]) Out[place] [address] [facility] [place] [address] 08/22/2020 12:00:00 AM EST eCW1 ([facility]) Unknown [address] [facility] [place] [address] 08/22/2020 12:00:00 AM EST eCW1 ([facility]) Unknown [address] [facility] [place] [address] 08/12/2020 12:00:00 AM EST eCW1 ([facility]) Out[place] [address] [place] [address] 08/12/2020 12:00:00 AM EST eCW1 ([facility]) Unknown [address] [facility] [place] [address] 07/15/2020 12:00:00 AM EST eCW1 ([facility]) Outpatient [address] [place] [address] 07/09/2020 12:00:00 AM EST eCW1 ([facility]) Unknown [address] [facility] [place] [address] 07/09/2020 12:00:00 AM EST eCW1 ([facility]) [place] [address] [facility] [place] [address] 05/07/2020 12:00:00 AM EST eCW1 ([facility]) [place] [address] [facility] [place] [address] 04/25/2020 12:00:00 AM EDT eCW1 ([facility]) Outpatient Attender: EUSEBIA BERMUDEZ MD Main Office 04/23/2020 12:00:00 PM EDT MEDENT ([facility]) Unknown [address] [facility] [place] [address] 04/12/2020 12:00:00 AM EDT eCW1 ([facility]) Inpatient Attender: HOLLIE GAITAN ttender: MAGALIS MCFADDEN MDAttender: JOHN HOWARD DOAdmitter: JOHN HOWARD DOReferrer: Devon Song NUTTER UP [id number] 04/07/2020 11:03:00 AM EDT - 04/10/2020 02:57:00 PM EDT Non-ST elevation (NSTEMI) myocardial infarction [facility] Non-ST elevation (NSTEMI) myocardial inf arction Patient discharged. Emergency Attender: KATHIA DE LA CRUZ PAAttender: Devon jeffrey NP ED-ED 04/06/2020 11:31:00 PM EDT - 04/07/2020 08:56:00 AM EDT CP [facility] Patient discharged. Medications Medication Brand Name Start [...] 12:00:00 AM EDT ORAL active MEDENT ([facility]) Cephalexin 500 MG Oral Capsule CEPHALEXIN 04/09/2021 12:00:00 AM EDT capsule 20 TAKE ONE CAPSULE BY MOUTH EVERY 12 HOURS FOR 10 DAYS T AURELIO ONE CAPSULE BY MOUTH EVERY 12 HOURS FOR 10 DAYS SOLD: 04/09/2021 [facility] Cephalexin 500 MG Oral Capsule Cephalexin 500 MG 04/09/2021 12:00:0 0 AM EDT 1.0 {capsule} active Cephalexin 500 MG eCW1 ([facility]) Cephalexin 500 MG Oral Capsule Cephalexin 500 MG 04/09/2021 12:00:0 0 AM EDT 1.0 {capsule} active Cephalexin 500 MG eCW1 ([facility]) Cephalexin 500 MG Oral Capsule Cephalexin 500 MG 04/09/2021 12:00:0 0 AM EDT 1.0 {capsule} active Cephalexin 500 MG eCW1 ([facility]) Cephalexin 500 MG Oral Capsule Cephalexin 500 MG 04/09/2021 12:00:0 0 AM EDT 1.0 {capsule} active Cephalexin 500 MG eCW1 ([facility]) Cephalexin 500 MG Oral Capsule Cephalexin 500 MG 04/09/2021 12:00:0 0 AM EDT 1.0 {capsule} active eCW1 ([facility]) Vitamin B12 1000 MCG Vitamin B12 1000 MCG 02/20/2021 12:00:00 AM ED T 1.0 {tablet} active Vitamin B12 1000 MCG eC W1 ([facility]) Vitamin B12 1000 MCG Vitamin B12 1000 MCG 02/20/2021 12:00:00 AM ED T 1.0 {tablet} active Vitamin B12 1000 MCG eC W1 ([facility]) Vitamin B12 1000 MCG Vitamin B12 1000 MCG 02/20/2021 12:00:00 AM ED T 1.0 {tablet} active eCW1 ([facility]) Vitamin B12 1000 MCG Vitamin B12 1000 MCG 02/20/2021 12:00:00 AM ED T 1.0 {tablet} active Vitamin B12 1000 MCG eC W1 ([facility]) Vitamin B12 1000 MCG Vitamin B12 1000 MCG 02/20/2021 12:00:00 AM ED T 1.0 {tablet} active Vitamin B12 1000 MCG eC W1 ([facility]) Vitamin B12 1000 MCG Vitamin B12 1000 MCG 02/20/2021 12:00:00 AM ED T 1.0 {tablet} active Vitamin B12 1000 MCG eC W1 ([facility]) Vitamin B12 1000 MCG Vitamin B12 1000 MCG 02/20/2021 12:00:00 AM ED T 1.0 {tablet} active Vitamin B12 1000 MCG eC W1 ([facility]) Vitamin B12 1000 MCG Vitamin B12 1000 MCG 02/20/2021 12:00:00 AM ED T 1.0 {tablet} active Vitamin B12 1000 MCG eC W1 ([facility]) Vitamin B12 1000 MCG Vitamin B12 1000 MCG 02/20/2021 12:00:00 AM ED T 1.0 {tablet} active Vitamin B12 1000 MCG eC W1 ([facility]) Vitamin B12 1000 MCG Vitamin B12 1000 MCG 02/20/2021 12:00:00 AM ED T 1.0 {tablet} active Vitamin B12 1000 MCG eC W1 ([facility]) Vitamin B12 1000 MCG Vitamin B12 1000 MCG 02/20/2021 12:00:00 AM ED T 1.0 {tablet} active Vitamin B12 1000 MCG eC W1 ([facility]) Vitamin B12 1000 MCG Vitamin B12 1000 MCG 02/20/2021 12:00:00 AM ED T 1.0 {tablet} active Vitamin B12 1000 MCG eC W1 ([facility]) Vitamin B12 1000 MCG Vitamin B12 1000 MCG 02/20/2021 12:00:00 AM ED T 1.0 {tablet} active eCW1 ([facility]) Vitamin B12 1000 MCG Vitamin B12 1000 MCG 02/20/2021 12:00:00 AM ED T 1.0 {tablet} active Vitamin B12 1000 MCG eC W1 ([facility]) Vitamin B12 1000 MCG Vitamin B12 1000 MCG 02/20/2021 12:00:00 AM ED T 1.0 {tablet} active Vitamin B12 1000 MCG eC W1 ([facility]) Vitamin B12 1000 MCG Vitamin B12 1000 MCG 02/20/2021 12:00:00 AM ED T 1.0 {tablet} active Vitamin B12 1000 MCG eC W1 ([facility]) Vitamin B12 1000 MCG Vitamin B12 1000 MCG 02/20/2021 12:00:00 AM ED T 1.0 {tablet} active Vitamin B12 1000 MCG eC W1 ([facility]) Vitamin B12 1000 MCG Vitamin B12 1000 MCG 02/20/2021 12:00:00 AM ED T 1.0 {tablet} active Vitamin B12 1000 MCG eC W1 ([facility]) Vitamin B12 1000 MCG Vitamin B12 1000 MCG 02/20/2021 12:00:00 AM ED T 1.0 {tablet} active Vitamin B12 1000 MCG eC W1 ([facility]) Vitamin B12 1000 MCG Vitamin B12 1000 MCG 02/20/2021 12:00:00 AM ED T 1.0 {tablet} active Vitamin B12 1000 MCG eC W1 ([facility]) Vitamin B12 1000 MCG Vitamin B12 1000 MCG 02/20/2021 12:00:00 AM ED T 1.0 {tablet} active Vitamin B12 1000 MCG eC W1 ([facility]) Vitamin B12 1000 MCG Vitamin B12 1000 MCG 02/20/2021 12:00:00 AM ED T 1.0 {tablet} active Vitamin B12 1000 MCG eC W1 ([facility]) Vitamin B12 1000 MCG Vitamin B12 1000 MCG 02/20/2021 12:00:00 AM ED T 1.0 {tablet} active Vitamin B12 1000 MCG eC W1 ([facility]) Vitamin B12 1000 MCG Vitamin B12 1000 MCG 02/20/2021 12:00:00 AM ED T 1.0 {tablet} active Vitamin B12 1000 MCG eC W1 ([facility]) Vitamin B12 1000 MCG Vitamin B12 1000 MCG 02/20/2021 12:00:00 AM ED T 1.0 {tablet} active Vitamin B12 1000 MCG eC W1 ([facility]) Vitamin B12 1000 MCG Vitamin B12 1000 MCG 02/20/2021 12:00:00 AM ED T 1.0 {tablet} active Vitamin B12 1000 MCG eC W1 ([facility]) Prednisone 20 MG Oral Tablet predniSONE 20 MG predniSONE 20 MG 11/07/2020 12:00:00 AM EDT suspended predn iSONE 20 MG eCW1 ([facility]) Prednisone 20 MG Oral Tablet predniSONE 20 MG predniSONE 20 MG 11/07/2020 12:00:00 AM EDT suspended predn iSONE 20 MG eCW1 ([facility]) Prednisone 20 MG Oral Tablet PredniSONE 20 MG PredniSONE 20 MG 11/07/2020 12:00:00 AM EDT active PredniSO NE 20 MG eCW1 ([facility]) Prednisone 20 MG Oral Tablet predniSONE 20 MG predniSONE 20 MG 11/07/2020 12:00:00 AM EDT suspended predn iSONE 20 MG eCW1 ([facility]) Prednisone 20 MG Oral Tablet predniSONE 20 MG predniSONE 20 MG 11/07/2020 12:00:00 AM EDT suspended predn iSONE 20 MG eCW1 ([facility]) Prednisone 20 MG Oral Tablet predniSONE 20 MG predniSONE 20 MG 11/07/2020 12:00:00 AM EDT suspended predn iSONE 20 MG eCW1 ([facility]) Prednisone 20 MG Oral Tablet predniSONE 20 MG predniSONE 20 MG 11/07/2020 12:00:00 AM EDT suspended predn iSONE 20 MG eCW1 ([facility]) Prednisone 20 MG Oral Tablet predniSONE 20 MG predniSONE 20 MG 11/07/2020 12:00:00 AM EDT suspended predn iSONE 20 MG eCW1 ([facility]) Prednisone 20 MG Oral Tablet predniSONE 20 MG predniSONE 20 MG 11/07/2020 12:00:00 AM EDT suspended predn iSONE 20 MG eCW1 ([facility]) Prednisone 20 MG Oral Tablet predniSONE 20 MG predniSONE 20 MG 11/07/2020 12:00:00 AM EDT suspended predn iSONE 20 MG eCW1 ([facility]) Prednisone 20 MG Oral Tablet predniSONE 20 MG predniSONE 20 MG 11/07/2020 12:00:00 AM EDT suspended predn iSONE 20 MG eCW1 ([facility]) Prednisone 20 MG Oral Tablet predniSONE 20 MG predniSONE 20 MG 11/07/2020 12:00:00 AM EDT suspended predn iSONE 20 MG eCW1 ([facility]) Prednisone 20 MG Oral Tablet predniSONE 20 MG predniSONE 20 MG 11/07/2020 12:00:00 AM EDT suspended eCW1 ([facility]) Prednisone 20 MG Oral Tablet PredniSONE 20 MG PredniSONE 20 MG 11/07/2020 12:00:00 AM EDT active PredniSO NE 20 MG eCW1 ([facility]) Prednisone 20 MG Oral Tablet predniSONE 20 MG predniSONE 20 MG 11/07/2020 12:00:00 AM EDT suspended predn iSONE 20 MG eCW1 ([facility]) Prednisone 20 MG Oral Tablet predniSONE 20 MG predniSONE 20 MG 11/07/2020 12:00:00 AM EDT suspended predn iSONE 20 MG eCW1 ([facility]) Prednisone 20 MG Oral Tablet predniSONE 20 MG predniSONE 20 MG 11/07/2020 12:00:00 AM EDT suspended predn iSONE 20 MG eCW1 ([facility]) Prednisone 20 MG Oral Tablet predniSONE 20 MG predniSONE 20 MG 11/07/2020 12:00:00 AM EDT suspended predn iSONE 20 MG eCW1 ([facility]) 20 mg 11/07/2020 12:00:00 AM EDT tablet [...] EDT suspended predn iSONE 20 MG eCW1 ([facility]) Prednisone 20 MG Oral Tablet predniSONE 20 MG predniSONE 20 MG 11/07/2020 12:00:00 AM EDT suspended predn iSONE 20 MG eCW1 ([facility]) Prednisone 20 MG Oral Tablet predniSONE 20 MG predniSONE 20 MG 11/07/2020 12:00:00 AM EDT suspended predn iSONE 20 MG eCW1 ([facility]) gabapentin 100 MG Oral Capsule Gabapentin 100 MG Gabapentin 100 MG 10/24/2020 12:00:00 AM EDT 1.0 {capsule} suspended Gabapentin 100 MG eCW1 ([facility]) gabapentin 100 MG Oral Capsule Gabapentin 100 MG Gabapentin 100 MG 10/24/2020 12:00:00 AM EDT 1.0 {capsule} suspended Gabapentin 100 MG eCW1 ([facility]) gabapentin 100 MG Oral Capsule Gabapentin 100 MG Gabapentin 100 MG 10/24/2020 12:00:00 AM EDT 1.0 {capsule} suspended Gabapentin 100 MG eCW1 ([facility]) gabapentin 100 MG Oral Capsule Gabapentin 100 MG Gabapentin 100 MG 10/24/2020 12:00:00 AM EDT 1.0 {capsule} suspended Gabapentin 100 MG eCW1 ([facility]) gabapentin 100 MG Oral Capsule Gabapentin 100 MG Gabapentin 100 MG 10/24/2020 12:00:00 AM EDT 1.0 {capsule} suspended Gabapentin 100 MG eCW1 ([facility]) gabapentin 100 MG Oral Capsule Gabapentin 100 MG Gabapentin 100 MG 10/24/2020 12:00:00 AM EDT 1.0 {capsule} suspended eCW1 ([facility]) gabapentin 100 MG Oral Capsule Gabapentin 100 MG Gabapentin 100 MG 10/24/2020 12:00:00 AM EDT 1.0 {capsule} suspended Gabapentin 100 MG eCW1 ([facility]) gabapentin 100 MG Oral Capsule Gabapentin 100 MG Gabapentin 100 MG 10/24/2020 12:00:00 AM EDT 1.0 {capsule} suspended Gabapentin 100 MG eCW1 ([facility]) gabapentin 100 MG Oral Capsule Gabapentin 100 MG Gabapentin 100 MG 10/24/2020 12:00:00 AM EDT 1.0 {capsule} active G abapentin 100 MG eCW1 ([facility]) gabapentin 100 MG Oral Capsule Gabapentin 100 MG Gabapentin 100 MG 10/24/2020 12:00:00 AM EDT 1.0 {capsule} suspended Gabapentin 100 MG eCW1 ([facility]) gabapentin 100 MG Oral Capsule Gabapentin 100 MG Gabapentin 100 MG 10/24/2020 12:00:00 AM EDT 1.0 {capsule} suspended Gabapentin 100 MG eCW1 ([facility]) gabapentin 100 MG Oral Capsule Gabapentin 100 MG Gabapentin 100 MG 10/24/2020 12:00:00 AM EDT 1.0 {capsule} suspended Gabapentin 100 MG eCW1 ([facility]) gabapentin 100 MG Oral Capsule Gabapentin 100 MG Gabapentin 100 MG 10/24/2020 12:00:00 AM EDT 1.0 {capsule} suspended Gabapentin 100 MG eCW1 ([facility]) gabapentin 100 MG Oral Capsule Gabapentin 100 MG Gabapentin 100 MG 10/24/2020 12:00:00 AM EDT 1.0 {capsule} suspended Gabapentin 100 MG eCW1 ([facility] [facility] gabapentin 100 MG Oral Capsule Gabapentin 100 MG Gabapentin 100 MG 10/24/2020 12:00:00 AM EDT 1.0 {capsule} suspended Gabapentin 100 MG eCW1 ([facility]) gabapentin 100 MG Oral Capsule Gabapentin 100 MG Gabapentin 100 MG 10/24/2020 12:00:00 AM EDT 1.0 {capsule} suspended Gabapentin 100 MG eCW1 ([facility] [place]) gabapentin 100 MG Oral Capsule Gabapentin 100 MG Gabapentin 100 MG 10/24/2020 12:00:00 AM EDT 1.0 {capsule} suspended Gabapentin 100 MG eCW1 ([facility] [place]) gabapentin 100 MG Oral Capsule Gabapentin 100 MG Gabapentin 100 MG 10/24/2020 12:00:00 AM EDT 1.0 {capsule} suspended Gabapentin 100 MG eCW1 ([facility]) gabapentin 100 MG Oral Capsule Gabapentin 100 MG Gabapentin 100 MG 10/24/2020 12:00:00 AM EDT 1.0 {capsule} suspended Gabapentin 100 MG eCW1 ([facility] [place]) gabapentin 100 MG Oral Capsule Gabapentin 100 MG Gabapentin 100 MG 10/24/2020 12:00:00 AM EDT 1.0 {capsule} suspended Gabapentin 100 MG eCW1 ([facility]) gabapentin 100 MG Oral Capsule Gabapentin 100 MG Gabapentin 100 MG 10/24/2020 12:00:00 AM EDT 1.0 {capsule} suspended Gabapentin 100 MG eCW1 ([facility]) gabapentin 100 MG Oral Capsule Gabapentin 100 MG Gabapentin 100 MG 10/24/2020 12:00:00 AM EDT 1.0 {capsule} suspended Gabapentin 100 MG eCW1 ([facility]) gabapentin 100 MG Oral Capsule Gabapentin 100 MG Gabapentin 100 MG 10/24/2020 12:00:00 AM EDT 1.0 {capsule} suspended Gabapentin 100 MG eCW1 ([facility]) gabapentin 100 MG Oral Capsule Gabapentin 100 MG Gabapentin 100 MG 10/24/2020 12:00:00 AM EDT 1.0 {capsule} suspended Gabapentin 100 MG eCW1 ([facility]) Diclofenac Sodium 0.01 MG/MG Topical Gel [Voltaren] Voltaren 1 % Voltaren 1 % 08/22/2020 12:00:00 AM EST active Voltaren 1 % eCW1 ([facility]) Diclofenac Sodium 0.01 MG/MG Topical Gel [Voltaren] Voltaren 1 % Voltaren 1 % 08/22/2020 12:00:00 AM EST active Voltaren 1 % eCW1 ([facility]) Diclofenac Sodium 0.01 MG/MG Topical Gel [Voltaren] Voltaren 1 % Voltaren 1 % 08/22/2020 12:00:00 AM EST active Voltaren 1 % eCW1 ([facility]) Diclofenac Sodium 0.01 MG/MG Topical Gel [Voltaren] Voltaren 1 % Voltaren 1 % 08/22/2020 12:00:00 AM EST active Voltaren 1 % eCW1 ([facility] [place]) Diclofenac Sodium 0.01 MG/MG Topical Gel [Voltaren] Voltaren 1 % Voltaren 1 % 08/22/2020 12:00:00 AM EST active Voltaren 1 % eCW1 ([facility] [place]) Diclofenac Sodium 0.01 MG/MG Topical Gel [Voltaren] Voltaren 1 % Voltaren 1 % 08/22/2020 12:00:00 AM EST active Voltaren 1 % eCW1 ([facility]) Diclofenac Sodium 0.01 MG/MG Topical Gel [Voltaren] Voltaren 1 % Voltaren 1 % 08/22/2020 12:00:00 AM EST active Voltaren 1 % eCW1 ([facility] [place]) Diclofenac Sodium 0.01 MG/MG Topical Gel [Voltaren] Voltaren 1 % Voltaren 1 % 08/22/2020 12:00:00 AM EST active Voltaren 1 % eCW1 ([facility] [place]) Diclofenac Sodium 0.01 MG/MG Topical Gel [Voltaren] Voltaren 1 % Voltaren 1 % 08/22/2020 12:00:00 AM EST active Voltaren 1 % eCW1 ([facility]) Diclofenac Sodium 0.01 MG/MG Topical Gel [Voltaren] Voltaren 1 % Voltaren 1 % 08/22/2020 12:00:00 AM EST active Voltaren 1 % eCW1 ([facility]) Diclofenac Sodium 0.01 MG/MG Topical Gel [Voltaren] Voltaren 1 % Voltaren 1 % 08/22/2020 12:00:00 AM EST active Voltaren 1 % eCW1 ([facility] [place]) Diclofenac Sodium 0.01 MG/MG Topical Gel [Voltaren] Voltaren 1 % Voltaren 1 % 08/22/2020 12:00:00 AM EST active Voltaren 1 % eCW1 ([facility]) Diclofenac Sodium 0.01 MG/MG Topical Gel [Voltaren] Voltaren 1 % Voltaren 1 % 08/22/2020 12:00:00 AM EST active Voltaren 1 % eCW1 ([facility]) Diclofenac Sodium 0.01 MG/MG Topical Gel [Voltaren] Voltaren 1 % Voltaren 1 % 08/22/2020 12:00:00 AM EST active Voltaren 1 % eCW1 ([facility]) Diclofenac Sodium 0.01 MG/MG Topical Gel [Voltaren] Voltaren 1 % Voltaren 1 % 08/22/2020 12:00:00 AM EST active Voltaren 1 % eCW1 ([facility] [place]) Diclofenac Sodium 0.01 MG/MG Topical Gel [Voltaren] Voltaren 1 % Voltaren 1 % 08/22/2020 12:00:00 AM EST active Voltaren 1 % eCW1 ([facility]) Diclofenac Sodium 0.01 MG/MG Topical Gel [Voltaren] Voltaren 1 % Voltaren 1 % 08/22/2020 12:00:00 AM EST active Voltaren 1 % eCW1 ([facility]) Diclofenac Sodium 0.01 MG/MG Topical Gel [Voltaren] Voltaren 1 % Voltaren 1 % 08/22/2020 12:00:00 AM EST active eCW1 ([facility]) Diclofenac Sodium 0.01 MG/MG Topical Gel [Voltaren] Voltaren 1 % Voltaren 1 % 08/22/2020 12:00:00 AM EST active Voltaren 1 % eCW1 ([facility]) Diclofenac Sodium 0.01 MG/MG Topical Gel [Voltaren] Voltaren 1 % Voltaren 1 % 08/22/2020 12:00:00 AM EST active Voltaren 1 % eCW1 ([facility]) Diclofenac Sodium 0.01 MG/MG Topical Gel [Voltaren] Voltaren 1 % Voltaren 1 % 08/22/2020 12:00:00 AM EST active Voltaren 1 % eCW1 ([facility]) Diclofenac Sodium 0.01 MG/MG Topical Gel [Voltaren] Voltaren 1 % Voltaren 1 % 08/22/2020 12:00:00 AM EST active Voltaren 1 % eCW1 ([facility]) Diclofenac Sodium 0.01 MG/MG Topical Gel [Voltaren] Voltaren 1 % Voltaren 1 % 08/22/2020 12:00:00 AM EST active Voltaren 1 % eCW1 ([facility]) Voltaren 1 % UNK 08/22/2020 12:00:00 AM EST activ e Voltaren 1 % eCW1 ([facility]) Diclofenac Sodium 0.01 MG/MG Topical Gel [Voltaren] Voltaren 1 % Voltaren 1 % 08/22/2020 12:00:00 AM EST active Voltaren 1 % eCW1 ([facility]) 1 % 08/22/2020 12:00:00 AM EST gel 100 APPLY 4 GRAMS TO [employer] EVERY 8 HOURS NEEDED FOR 10 DAYS APPLY 4 GRAMS TO [employer]INT EVERY 8 HOURS NEEDED FOR 10 DAYS SOLD: 08/23/2020 [facility] Diclofenac Sodium 0.01 MG/MG Topical Gel [Voltaren] Voltaren 1 % Voltaren 1 % 08/22/2020 12:00:00 AM EST active Voltaren 1 % eCW1 ([facility]) Voltaren 1 % UNK 08/22/2020 12:00:00 AM EST activ e Voltaren 1 % eCW1 ([facility]) Diclofenac Sodium 0.01 MG/MG Topical Gel [Voltaren] Voltaren 1 % Voltaren 1 % 08/22/2020 12:00:00 AM EST active Voltaren 1 % eCW1 ([facility]) Diclofenac Sodium 0.01 MG/MG Topical Gel [Voltaren] Voltaren 1 % Voltaren 1 % 08/22/2020 12:00:00 AM EST active Voltaren 1 % eCW1 ([facility]) Diclofenac Sodium 0.01 MG/MG Topical Gel [Voltaren] Voltaren 1 % Voltaren 1 % 08/22/2020 12:00:00 AM EST active Voltaren 1 % eCW1 ([facility]) Diclofenac Sodium 0.01 MG/MG Topical Gel [Voltaren] Voltaren 1 % Voltaren 1 % 08/22/2020 12:00:00 AM EST active Voltaren 1 % eCW1 ([facility]) Diclofenac Sodium 0.01 MG/MG Topical Gel [Voltaren] Voltaren 1 % Voltaren 1 % 08/22/2020 12:00:00 AM EST active Voltaren 1 % eCW1 ([facility]) 75 mg 08/14/2020 12:00:00 AM EST tablet 90 TAKE ONE TABLET BY MOUTH EVERY DAY TAKE ONE TABLET BY MOUTH EVERY DAY SOLD: 08/14/2020 [facility] cefdinir 300 MG Oral Capsule Cefdinir 300 MG Cefdinir 300 MG 07/15/2020 12:00:00 AM EST suspended Cefdinir 300 MG eCW1 ([facility]) cefdinir 300 MG Oral Capsule Cefdinir 300 MG Cefdinir 300 MG 07/15/2020 12:00:00 AM EST suspended Cefdinir 300 MG eCW1 ([facility]) cefdinir 300 MG Oral Capsule Cefdinir 300 MG Cefdinir 300 MG 07/15/2020 12:00:00 AM EST suspended Cefdinir 300 MG eCW1 ([facility]) cefdinir 300 MG Oral Capsule Cefdinir 300 MG Cefdinir 300 MG 07/15/2020 12:00:00 AM EST suspended Cefdinir 300 MG eCW1 ([facility]) cefdinir 300 MG Oral Capsule Cefdinir 300 MG Cefdinir 300 MG 07/15/2020 12:00:00 AM EST suspended Cefdinir 300 MG eCW1 ([facility]) 300 mg 07/15/2020 12:00:00 AM EST capsule 20 TAKE ONE CAPSULE BY MOUTH TWICE A DAY FOR 10 DAYS TAKE ONE CAPSULE BY MOUTH TWICE A DAY FOR 10 DAYS SOLD : 07/15/2020 [facility] cefdinir 300 MG Oral Capsule Cefdinir 300 MG Cefdinir 300 MG 07/15/2020 12:00:00 AM EST suspended Cefdinir 300 MG eCW1 ([facility]) cefdinir 300 MG Oral Capsule Cefdinir 300 MG Cefdinir 300 MG 07/15/2020 12:00:00 AM EST suspended Cefdinir 300 MG eCW1 ([facility]) cefdinir 300 MG Oral Capsule Cefdinir 300 MG Cefdinir 300 MG 07/15/2020 12:00:00 AM EST suspended Cefdinir 300 MG eCW1 ([facility]) cefdinir 300 MG Oral Capsule Cefdinir 300 MG Cefdinir 300 MG 07/15/2020 12:00:00 AM EST suspended Cefdinir 300 MG eCW1 ([facility]) cefdinir 300 MG Oral Capsule Cefdinir 300 MG Cefdinir 300 MG 07/15/2020 12:00:00 AM EST suspended Cefdinir 300 MG eCW1 ([facility]) cefdinir 300 MG Oral Capsule Cefdinir 300 MG Cefdinir 300 MG 07/15/2020 12:00:00 AM EST suspended Cefdinir 300 MG eCW1 ([facility]) cefdinir 300 MG Oral Capsule Cefdinir 300 MG Cefdinir 300 MG 07/15/2020 12:00:00 AM EST suspended Cefdinir 300 MG eCW1 ([facility]) cefdinir 300 MG Oral Capsule Cefdinir 300 MG Cefdinir 300 MG 07/15/2020 12:00:00 AM EST suspended Cefdinir 300 MG eCW1 ([facility]) cefdinir 300 MG Oral Capsule Cefdinir 300 MG Cefdinir 300 MG 07/15/2020 12:00:00 AM EST suspended Cefdinir 300 MG eCW1 ([facility]) cefdinir 300 MG Oral Capsule Cefdinir 300 MG Cefdinir 300 MG 07/15/2020 12:00:00 AM EST suspended Cefdinir 300 MG eCW1 ([facility]) cefdinir 300 MG Oral Capsule Cefdinir 300 MG Cefdinir 300 MG 07/15/2020 12:00:00 AM EST suspended Cefdinir 300 MG eCW1 ([facility]) cefdinir 300 MG Oral Capsule Cefdinir 300 MG Cefdinir 300 MG 07/15/2020 12:00:00 AM EST suspended Cefdinir 300 MG eCW1 ([facility]) cefdinir 300 MG Oral Capsule Cefdinir 300 MG Cefdinir 300 MG 07/15/2020 12:00:00 AM EST suspended Cefdinir 300 MG eCW1 ([facility]) cefdinir 300 MG Oral Capsule Cefdinir 300 MG Cefdinir 300 MG 07/15/2020 12:00:00 AM EST suspended Cefdinir 300 MG eCW1 ([facility]) cefdinir 300 MG Oral Capsule Cefdinir 300 MG Cefdinir 300 MG 07/15/2020 12:00:00 AM EST suspended Cefdinir 300 MG eCW1 ([facility]) cefdinir 300 MG Oral Capsule Cefdinir 300 MG Cefdinir 300 MG 07/15/2020 12:00:00 AM EST suspended Cefdinir 300 MG eCW1 ([facility]) cefdinir 300 MG Oral Capsule Cefdinir 300 MG Cefdinir 300 MG 07/15/2020 12:00:00 AM EST suspended Cefdinir 300 MG eCW1 ([facility]) cefdinir 300 MG Oral Capsule Cefdinir 300 MG Cefdinir 300 MG 07/15/2020 12:00:00 AM EST suspended Cefdinir 300 MG eCW1 ([facility]) cefdinir 300 MG Oral Capsule Cefdinir 300 MG Cefdinir 300 MG 07/15/2020 12:00:00 AM EST suspended Cefdinir 300 MG eCW1 ([facility]) cefdinir 300 MG Oral Capsule Cefdinir 300 MG Cefdinir 300 MG 07/15/2020 12:00:00 AM EST active Cefdinir 300 MG eCW1 ([facility]) cefdinir 300 MG Oral Capsule Cefdinir 300 MG Cefdinir 300 MG 07/15/2020 12:00:00 AM EST suspended Cefdinir 300 MG eCW1 ([facility]) cefdinir 300 MG Oral Capsule Cefdinir 300 MG Cefdinir 300 MG 07/15/2020 12:00:00 AM EST suspended Cefdinir 300 MG eCW1 ([facility]) cefdinir 300 MG Oral Capsule Cefdinir 300 MG Cefdinir 300 MG 07/15/2020 12:00:00 AM EST suspended Cefdinir 300 MG eCW1 ([facility] [place]) cefdinir 300 MG Oral Capsule Cefdinir 300 MG Cefdinir 300 MG 07/15/2020 12:00:00 AM EST suspended Cefdinir 300 MG eCW1 ([facility]) cefdinir 300 MG Oral Capsule Cefdinir 300 MG Cefdinir 300 MG 07/15/2020 12:00:00 AM EST suspended Cefdinir 300 MG eCW1 ([facility]) cefdinir 300 MG Oral Capsule Cefdinir 300 MG Cefdinir 300 MG 07/15/2020 12:00:00 AM EST suspended eCW1 ( [facility]) cefdinir 300 MG Oral Capsule Cefdinir 300 MG Cefdinir 300 MG 07/15/2020 12:00:00 AM EST suspended Cefdinir 300 MG eCW1 ([facility]) cefdinir 300 MG Oral Capsule Cefdinir 300 MG Cefdinir 300 MG 07/15/2020 12:00:00 AM EST suspended Cefdinir 300 MG eCW1 ([facility]) cefdinir 300 MG Oral Capsule Cefdinir 300 MG Cefdinir 300 MG 07/15/2020 12:00:00 AM EST suspended Cefdinir 300 MG eCW1 ([facility]) cefdinir 300 MG Oral Capsule Cefdinir 300 MG Cefdinir 300 MG 07/15/2020 12:00:00 AM EST suspended Cefdinir 300 MG eCW1 ([facility]) atorvastatin 40 MG Oral Tablet Atorvastatin Calcium 40 MG Atorvastatin Calcium 40 MG 05/07/2020 12:00:00 AM EST 1.0 {tablet} activ e Atorvastatin Calcium 40 MG eCW1 ([facility]) clopidogrel 75 MG Oral Tablet Clopidogrel Bisulfate 75 MG Clopidogrel Bisulfate 75 MG 05/07/2020 12:00:00 AM EST 1.0 {tablet} activ e Clopidogrel Bisulfate 75 MG eCW1 ([facility] [place]) clopidogrel 75 MG Oral Tablet Clopidogrel Bisulfate 75 MG Clopidogrel Bisulfate 75 MG 05/07/2020 12:00:00 AM EST 1.0 {tablet} activ e Clopidogrel Bisulfate 75 MG eCW1 ([facility] [place]) clopidogrel 75 MG Oral Tablet Clopidogrel Bisulfate 75 MG Clopidogrel Bisulfate 75 MG 05/07/2020 12:00:00 AM EST 1.0 {tablet} activ e Clopidogrel Bisulfate 75 MG eCW1 ([facility] [place]) Aspirin 81 MG Delayed Release Oral Tablet Aspirin 81 MG 05/07/2020 12:00:00 AM EST 1.0 {tablet} active Aspirin 81 MG eCW1 ([facility] [place]) atorvastatin 40 MG Oral Tablet Atorvastatin Calcium 40 MG Atorvastatin Calcium 40 MG 05/07/2020 12:00:00 AM EST 1.0 {tablet} activ e Atorvastatin Calcium 40 MG eCW1 ([facility]) atorvastatin 40 MG Oral Tablet Atorvastatin Calcium 40 MG Atorvastatin Calcium 40 MG 05/07/2020 12:00:00 AM EST 1.0 {tablet} activ e Atorvastatin Calcium 40 MG eCW1 ([facility]) Aspirin 81 MG Delayed Release Oral Tablet Aspirin 81 MG 05/07/2020 12:00:00 AM EST 1.0 {tablet} active Aspirin 81 MG eCW1 ([facility]) clopidogrel 75 MG Oral Tablet Clopidogrel Bisulfate 75 MG Clopidogrel Bisulfate 75 MG 05/07/2020 12:00:00 AM EST 1.0 {tablet} activ e Clopidogrel Bisulfate 75 MG eCW1 ([facility]) atorvastatin 40 MG Oral Tablet Atorvastatin Calcium 40 MG Atorvastatin Calcium 40 MG 05/07/2020 12:00:00 AM EST 1.0 {tablet} activ e Atorvastatin Calcium 40 MG eCW1 ([facility]) atorvastatin 40 MG Oral Tablet Atorvastatin Calcium 40 MG Atorvastatin Calcium 40 MG 05/07/2020 12:00:00 AM EST 1.0 {tablet} activ e Atorvastatin Calcium 40 MG eCW1 ([facility] [place]) atorvastatin 40 MG Oral Tablet Atorvastatin Calcium 40 MG Atorvastatin Calcium 40 MG 05/07/2020 12:00:00 AM EST 1.0 {tablet} activ e Atorvastatin Calcium 40 MG eCW1 ([facility] [place]) clopidogrel 75 MG Oral Tablet Clopidogrel Bisulfate 75 MG Clopidogrel Bisulfate 75 MG 05/07/2020 12:00:00 AM EST 1.0 {tablet} activ e Clopidogrel Bisulfate 75 MG eCW1 ([facility] [place]) atorvastatin 40 MG Oral Tablet Atorvastatin Calcium 40 MG Atorvastatin Calcium 40 MG 05/07/2020 12:00:00 AM EST 1.0 {tablet} activ e Atorvastatin Calcium 40 MG eCW1 ([facility]) clopidogrel 75 MG Oral Tablet Clopidogrel Bisulfate 75 MG Clopidogrel Bisulfate 75 MG 05/07/2020 12:00:00 AM EST 1.0 {tablet} activ e Clopidogrel Bisulfate 75 MG eCW1 ([facility]) Aspirin 81 MG Delayed Release Oral Tablet Aspirin 81 MG 05/07/2020 12:00:00 AM EST 1.0 {tablet} active Aspirin 81 MG eCW1 ([facility]) atorvastatin 40 MG Oral Tablet Atorvastatin Calcium 40 MG Atorvastatin Calcium 40 MG 05/07/2020 12:00:00 AM EST 1.0 {tablet} activ e Atorvastatin Calcium 40 MG eCW1 ([facility] [place]) Aspirin 81 MG Delayed Release Oral Tablet Aspirin 81 MG 05/07/2020 12:00:00 AM EST 1.0 {tablet} active Aspirin 81 MG eCW1 ([facility]) Aspirin 81 MG Delayed Release Oral Tablet Aspirin 81 MG 05/07/2020 12:00:00 AM EST 1.0 {tablet} active Aspirin 81 MG eCW1 ([facility]) Aspirin 81 MG Delayed Release Oral Tablet Aspirin 81 MG 05/07/2020 12:00:00 AM EST 1.0 {tablet} active Aspirin 81 MG eCW1 ([facility]) clopidogrel 75 MG Oral Tablet Clopidogrel Bisulfate 75 MG Clopidogrel Bisulfate 75 MG 05/07/2020 12:00:00 AM EST 1.0 {tablet} activ e Clopidogrel Bisulfate 75 MG eCW1 ([facility] [place]) clopidogrel 75 MG Oral Tablet Clopidogrel Bisulfate 75 MG Clopidogrel Bisulfate 75 MG 05/07/2020 12:00:00 AM EST 1.0 {tablet} activ e Clopidogrel Bisulfate 75 MG eCW1 ([facility] [place]) clopidogrel 75 MG Oral Tablet Clopidogrel Bisulfate 75 MG Clopidogrel Bisulfate 75 MG 05/07/2020 12:00:00 AM EST 1.0 {tablet} activ e Clopidogrel Bisulfate 75 MG eCW1 ([facility]) Aspirin 81 MG Delayed Release Oral Tablet Aspirin 81 MG 05/07/2020 12:00:00 AM EST 1.0 {tablet} active Aspirin 81 MG eCW1 ([facility]) atorvastatin 40 MG Oral Tablet Atorvastatin Calcium 40 MG Atorvastatin Calcium 40 MG 05/07/2020 12:00:00 AM EST 1.0 {tablet} activ e Atorvastatin Calcium 40 MG eCW1 ([facility] [place]) clopidogrel 75 MG Oral Tablet Clopidogrel Bisulfate 75 MG Clopidogrel Bisulfate 75 MG 05/07/2020 12:00:00 AM EST 1.0 {tablet} activ e Clopidogrel Bisulfate 75 MG eCW1 ([facility] [place]) Aspirin 81 MG Delayed Release Oral Tablet Aspirin 81 MG 05/07/2020 12:00:00 AM EST 1.0 {tablet} active Aspirin 81 MG eCW1 ([facility]) atorvastatin 40 MG Oral Tablet Atorvastatin Calcium 40 MG Atorvastatin Calcium 40 MG 05/07/2020 12:00:00 AM EST 1.0 {tablet} activ e Atorvastatin Calcium 40 MG eCW1 ([facility] [place]) Aspirin 81 MG Delayed Release Oral Tablet Aspirin 81 MG 05/07/2020 12:00:00 AM EST 1.0 {tablet} active eCW1 ([facility] [place]) Aspirin 81 MG Delayed Release Oral Tablet Aspirin 81 MG 05/07/2020 12:00:00 AM EST 1.0 {tablet} active Aspirin 81 MG eCW1 ([facility] [place]) atorvastatin 40 MG Oral Tablet Atorvastatin Calcium 40 MG Atorvastatin Calcium 40 MG 05/07/2020 12:00:00 AM EST 1.0 {tablet} activ e Atorvastatin Calcium 40 MG eCW1 ([facility] [place]) clopidogrel 75 MG Oral Tablet Clopidogrel Bisulfate 75 MG Clopidogrel Bisulfate 75 MG 05/07/2020 12:00:00 AM EST 1.0 {tablet} activ e Clopidogrel Bisulfate 75 MG eCW1 ([facility] [place]) Aspirin 81 MG Delayed Release Oral Tablet Aspirin 81 MG 05/07/2020 12:00:00 AM EST 1.0 {tablet} active Aspirin 81 MG eCW1 ([facility] [place]) clopidogrel 75 MG Oral Tablet Clopidogrel Bisulfate 75 MG Clopidogrel Bisulfate 75 MG 05/07/2020 12:00:00 AM EST 1.0 {tablet} activ e Clopidogrel Bisulfate 75 MG eCW1 ([facility]) atorvastatin 40 MG Oral Tablet Atorvastatin Calcium 40 MG Atorvastatin Calcium 40 MG 05/07/2020 12:00:00 AM EST 1.0 {tablet} activ e Atorvastatin Calcium 40 MG eCW1 ([facility] [place]) atorvastatin 40 MG Oral Tablet Atorvastatin Calcium 40 MG Atorvastatin Calcium 40 MG 05/07/2020 12:00:00 AM EST 1.0 {tablet} activ e Atorvastatin Calcium 40 MG eCW1 ([facility]) atorvastatin 40 MG Oral Tablet Atorvastatin Calcium 40 MG Atorvastatin Calcium 40 MG 05/07/2020 12:00:00 AM EST 1.0 {tablet} activ e Atorvastatin Calcium 40 MG eCW1 ([facility]) Aspirin 81 MG Delayed Release Oral Tablet Aspirin 81 MG 05/07/2020 12:00:00 AM EST 1.0 {tablet} active Aspirin 81 MG eCW1 ([facility]) Aspirin 81 MG Delayed Release Oral Tablet Aspirin 81 MG 05/07/2020 12:00:00 AM EST 1.0 {tablet} active Aspirin 81 MG eCW1 ([facility]) Aspirin 81 MG Delayed Release Oral Tablet Aspirin 81 MG 05/07/2020 12:00:00 AM EST 1.0 {tablet} active Aspirin 81 MG eCW1 ([facility]) atorvastatin 40 MG Oral Tablet Atorvastatin Calcium 40 MG Atorvastatin Calcium 40 MG 05/07/2020 12:00:00 AM EST 1.0 {tablet} activ e Atorvastatin Calcium 40 MG eCW1 ([facility]) atorvastatin 40 MG Oral Tablet Atorvastatin Calcium 40 MG Atorvastatin Calcium 40 MG 05/07/2020 12:00:00 AM EST 1.0 {tablet} activ e Atorvastatin Calcium 40 MG eCW1 ([facility]) clopidogrel 75 MG Oral Tablet Clopidogrel Bisulfate 75 MG Clopidogrel Bisulfate 75 MG 05/07/2020 12:00:00 AM EST 1.0 {tablet} activ e Clopidogrel Bisulfate 75 MG eCW1 ([facility]) 75 mg 05/07/2020 12:00:00 AM EST tablet 90 TAKE ONE TABLET BY MOUTH EVERY DAY TAKE ONE TABLET BY MOUTH EVERY DAY SOLD: 05/07/2020 [facility] atorvastatin 40 MG Oral Tablet Atorvastatin Calcium 40 MG Atorvastatin Calcium 40 MG 05/07/2020 12:00:00 AM EST 1.0 {tablet} activ e Atorvastatin Calcium 40 MG eCW1 ([facility]) Aspirin 81 MG Delayed Release Oral Tablet Aspirin 81 MG 05/07/2020 12:00:00 AM EST 1.0 {tablet} active Aspirin 81 MG eCW1 ([facility]) atorvastatin 40 MG Oral Tablet Atorvastatin Calcium 40 MG Atorvastatin Calcium 40 MG 05/07/2020 12:00:00 AM EST 1.0 {tablet} activ e Atorvastatin Calcium 40 MG eCW1 ([facility] [place]) clopidogrel 75 MG Oral Tablet Clopidogrel Bisulfate 75 MG Clopidogrel Bisulfate 75 MG 05/07/2020 12:00:00 AM EST 1.0 {tablet} activ e Clopidogrel Bisulfate 75 MG eCW1 ([facility] [place]) clopidogrel 75 MG Oral Tablet Clopidogrel Bisulfate 75 MG Clopidogrel Bisulfate 75 MG 05/07/2020 12:00:00 AM EST 1.0 {tablet} activ e Clopidogrel Bisulfate 75 MG eCW1 ([facility] [place]) atorvastatin 40 MG Oral Tablet Atorvastatin Calcium 40 MG Atorvastatin Calcium 40 MG 05/07/2020 12:00:00 AM EST 1.0 {tablet} activ e Atorvastatin Calcium 40 MG eCW1 ([facility]) clopidogrel 75 MG Oral Tablet Clopidogrel Bisulfate 75 MG Clopidogrel Bisulfate 75 MG 05/07/2020 12:00:00 AM EST 1.0 {tablet} activ e Clopidogrel Bisulfate 75 MG eCW1 ([facility]) Aspirin 81 MG Delayed Release Oral Tablet Aspirin 81 MG 05/07/2020 12:00:00 AM EST 1.0 {tablet} active Aspirin 81 MG eCW1 ([facility]) Aspirin 81 MG Delayed Release Oral Tablet Aspirin 81 MG 05/07/2020 12:00:00 AM EST 1.0 {tablet} active Aspirin 81 MG eCW1 ([facility]) Aspirin 81 MG Delayed Release Oral Tablet Aspirin 81 MG 05/07/2020 12:00:00 AM EST 1.0 {tablet} active Aspirin 81 MG [facility]CW1 [facility] [place]) Aspirin 81 MG Delayed Release Oral Tablet Aspirin 81 MG 05/07/2020 12:00:00 AM EST 1.0 {tablet} active Aspirin 81 MG eCW1 ([facility] [place]) atorvastatin 40 MG Oral Tablet Atorvastatin Calcium 40 MG Atorvastatin Calcium 40 MG 05/07/2020 12:00:00 AM EST 1.0 {tablet} activ e Atorvastatin Calcium 40 MG eCW1 ([facility] [place]) atorvastatin 40 MG Oral Tablet Atorvastatin Calcium 40 MG Atorvastatin Calcium 40 MG 05/07/2020 12:00:00 AM EST 1.0 {tablet} activ e Atorvastatin Calcium 40 MG eCW1 ([facility] [place]) atorvastatin 40 MG Oral Tablet Atorvastatin Calcium 40 MG Atorvastatin Calcium 40 MG 05/07/2020 12:00:00 AM EST 1.0 {tablet} activ e Atorvastatin Calcium 40 MG eCW1 ([facility] [place]) Aspirin 81 MG Delayed Release Oral Tablet Aspirin 81 MG 05/07/2020 12:00:00 AM EST 1.0 {tablet} active Aspirin 81 MG eCW1 ([facility] [place]) clopidogrel 75 MG Oral Tablet Clopidogrel Bisulfate 75 MG Clopidogrel Bisulfate 75 MG 05/07/2020 12:00:00 AM EST 1.0 {tablet} activ e Clopidogrel Bisulfate 75 MG eCW1 ([facility] [place]) Aspirin 81 MG Delayed Release Oral Tablet Aspirin 81 MG 05/07/2020 12:00:00 AM EST 1.0 {tablet} active Aspirin 81 MG eCW1 ([facility] [place]) atorvastatin 40 MG Oral Tablet Atorvastatin Calcium 40 MG Atorvastatin Calcium 40 MG 05/07/2020 12:00:00 AM EST 1.0 {tablet} activ e Atorvastatin Calcium 40 MG eCW1 ([facility] [place]) atorvastatin 40 MG Oral Tablet Atorvastatin Calcium 40 MG Atorvastatin Calcium 40 MG 05/07/2020 12:00:00 AM EST 1.0 {tablet} activ e Atorvastatin Calcium 40 MG eCW1 ([facility] [place]) atorvastatin 40 MG Oral Tablet Atorvastatin Calcium 40 MG Atorvastatin Calcium 40 MG 05/07/2020 12:00:00 AM EST 1.0 {tablet} activ e Atorvastatin Calcium 40 MG eCW1 ([facility] [place]) atorvastatin 40 MG Oral Tablet Atorvastatin Calcium 40 MG Atorvastatin Calcium 40 MG 05/07/2020 12:00:00 AM EST 1.0 {tablet} activ e Atorvastatin Calcium 40 MG eCW1 ([facility] [place]) clopidogrel 75 MG Oral Tablet Clopidogrel Bisulfate 75 MG Clopidogrel Bisulfate 75 MG 05/07/2020 12:00:00 AM EST 1.0 {tablet} activ e Clopidogrel Bisulfate 75 MG eCW1 ([facility] [place]) clopidogrel 75 MG Oral Tablet Clopidogrel Bisulfate 75 MG Clopidogrel Bisulfate 75 MG 05/07/2020 12:00:00 AM EST 1.0 {tablet} activ e Clopidogrel Bisulfate 75 MG eCW1 ([facility] [place]) Aspirin 81 MG Delayed Release Oral Tablet Aspirin 81 MG 05/07/2020 12:00:00 AM EST 1.0 {tablet} active Aspirin 81 MG eCW1 ([facility] [place]) clopidogrel 75 MG Oral Tablet Clopidogrel Bisulfate 75 MG Clopidogrel Bisulfate 75 MG 05/07/2020 12:00:00 AM EST 1.0 {tablet} activ e Clopidogrel Bisulfate 75 MG eCW1 ([facility] [place]) Aspirin 81 MG Delayed Release Oral Tablet Aspirin 81 MG 05/07/2020 12:00:00 AM EST 1.0 {tablet} active Aspirin 81 MG eCW1 ([facility] [place]) clopidogrel 75 MG Oral Tablet Clopidogrel Bisulfate 75 MG Clopidogrel Bisulfate 75 MG 05/07/2020 12:00:00 AM EST 1.0 {tablet} activ e Clopidogrel Bisulfate 75 MG eCW1 ([facility] [place]) Aspirin 81 MG Delayed Release Oral Tablet Aspirin 81 MG 05/07/2020 12:00:00 AM EST 1.0 {tablet} active Aspirin 81 MG eCW1 ([facility] [place]) atorvastatin 40 MG Oral Tablet Atorvastatin Calcium 40 MG Atorvastatin Calcium 40 MG 05/07/2020 12:00:00 AM EST 1.0 {tablet} activ e Atorvastatin Calcium 40 MG eCW1 ([facility] [place]) clopidogrel 75 MG Oral Tablet Clopidogrel Bisulfate 75 MG Clopidogrel Bisulfate 75 MG 05/07/2020 12:00:00 AM EST 1.0 {tablet} activ e Clopidogrel Bisulfate 75 MG eCW1 ([facility] [place]) atorvastatin 40 MG Oral Tablet Atorvastatin Calcium 40 MG Atorvastatin Calcium 40 MG 05/07/2020 12:00:00 AM EST 1.0 {tablet} activ e Atorvastatin Calcium 40 MG eCW1 ([facility] [place]) Aspirin 81 MG Delayed Release Oral Tablet Aspirin 81 MG 05/07/2020 12:00:00 AM EST 1.0 {tablet} active Aspirin 81 MG eCW1 ([facility] [place]) Aspirin 81 MG Delayed Release Oral Tablet Aspirin 81 MG 05/07/2020 12:00:00 AM EST 1.0 {tablet} active Aspirin 81 MG eCW1 ([facility] [place]) Aspirin 81 MG Delayed Release Oral Tablet Aspirin 81 MG 05/07/2020 12:00:00 AM EST 1.0 {tablet} active Aspirin 81 MG eCW1 ([facility] [place]) clopidogrel 75 MG Oral Tablet Clopidogrel Bisulfate 75 MG Clopidogrel Bisulfate 75 MG 05/07/2020 12:00:00 AM EST 1.0 {tablet} activ e Clopidogrel Bisulfate 75 MG eCW1 ([facility] [place]) Aspirin 81 MG Delayed Release Oral Tablet Aspirin 81 MG 05/07/2020 12:00:00 AM EST 1.0 {tablet} active Aspirin 81 MG eCW1 ([facility] [place]) Aspirin 81 MG Delayed Release Oral Tablet Aspirin 81 MG 05/07/2020 12:00:00 AM EST 1.0 {tablet} active Aspirin 81 MG eCW1 ([facility] [place]) Aspirin 81 MG Delayed Release Oral Tablet Aspirin 81 MG 05/07/2020 12:00:00 AM EST 1.0 {tablet} active Aspirin 81 MG eCW1 ([facility] [place]) Aspirin 81 MG Delayed Release Oral Tablet Aspirin 81 MG 05/07/2020 12:00:00 AM EST 1.0 {tablet} active Aspirin 81 MG eCW1 ([facility] [place]) clopidogrel 75 MG Oral Tablet Clopidogrel Bisulfate 75 MG Clopidogrel Bisulfate 75 MG 05/07/2020 12:00:00 AM EST 1.0 {tablet} activ e Clopidogrel Bisulfate 75 MG eCW1 ([facility] [place]) clopidogrel 75 MG Oral Tablet Clopidogrel Bisulfate 75 MG Clopidogrel Bisulfate 75 MG 05/07/2020 12:00:00 AM EST 1.0 {tablet} activ e Clopidogrel Bisulfate 75 MG eCW1 ([facility] [place]) Aspirin 81 MG Delayed Release Oral Tablet Aspirin 81 MG 05/07/2020 12:00:00 AM EST 1.0 {tablet} active Aspirin 81 MG eCW1 ([facility] [place]) clopidogrel 75 MG Oral Tablet Clopidogrel Bisulfate 75 MG Clopidogrel Bisulfate 75 MG 05/07/2020 12:00:00 AM EST 1.0 {tablet} activ e Clopidogrel Bisulfate 75 MG eCW1 ([facility] [place]) atorvastatin 40 MG Oral Tablet Atorvastatin Calcium 40 MG Atorvastatin Calcium 40 MG 05/07/2020 12:00:00 AM EST 1.0 {tablet} activ e Atorvastatin Calcium 40 MG eCW1 ([facility] [place]) atorvastatin 40 MG Oral Tablet ATORVASTATIN CALCIUM 05/07/2020 1 2:00:00 AM EST tablet 90 TAKE ONE TABLET BY MOUTH EVERY D AY TAKE ONE TABLET BY MOUTH EVERY DAY SOLD: 05/07/2020 [facility] clopidogrel 75 MG Oral Tablet Clopidogrel Bisulfate 75 MG Clopidogrel Bisulfate 75 MG 05/07/2020 12:00:00 AM EST 1.0 {tablet} activ e Clopidogrel Bisulfate 75 MG eCW1 ([facility] [place]) clopidogrel 75 MG Oral Tablet Clopidogrel Bisulfate 75 MG Clopidogrel Bisulfate 75 MG 05/07/2020 12:00:00 AM EST 1.0 {tablet} activ e Clopidogrel Bisulfate 75 MG eCW1 ([facility] [place]) atorvastatin 40 MG Oral Tablet Atorvastatin Calcium 40 MG Atorvastatin Calcium 40 MG 05/07/2020 12:00:00 AM EST 1.0 {tablet} activ e Atorvastatin Calcium 40 MG eCW1 ([facility] [place]) atorvastatin 40 MG Oral Tablet Atorvastatin Calcium 40 MG Atorvastatin Calcium 40 MG 05/07/2020 12:00:00 AM EST 1.0 {tablet} activ e Atorvastatin Calcium 40 MG eCW1 ([facility] [place]) clopidogrel 75 MG Oral Tablet Clopidogrel Bisulfate 75 MG Clopidogrel Bisulfate 75 MG 05/07/2020 12:00:00 AM EST 1.0 {tablet} activ e Clopidogrel Bisulfate 75 MG eCW1 ([facility] [place]) Aspirin 81 MG Delayed Release Oral Tablet Aspirin 81 MG 05/07/2020 12:00:00 AM EST 1.0 {tablet} active Aspirin 81 MG eCW1 ([facility] [place]) clopidogrel 75 MG Oral Tablet Clopidogrel Bisulfate 75 MG Clopidogrel Bisulfate 75 MG 05/07/2020 12:00:00 AM EST 1.0 {tablet} activ e Clopidogrel Bisulfate 75 MG eCW1 ([facility] [place]) clopidogrel 75 MG Oral Tablet Clopidogrel Bisulfate 75 MG Clopidogrel Bisulfate 75 MG 05/07/2020 12:00:00 AM EST 1.0 {tablet} activ e Clopidogrel Bisulfate 75 MG eCW1 ([facility] [place]) clopidogrel 75 MG Oral Tablet Clopidogrel Bisulfate 75 MG Clopidogrel Bisulfate 75 MG 05/07/2020 12:00:00 AM EST 1.0 {tablet} activ e Clopidogrel Bisulfate 75 MG eCW1 ([facility] [place]) atorvastatin 40 MG Oral Tablet Atorvastatin Calcium 40 MG Atorvastatin Calcium 40 MG 05/07/2020 12:00:00 AM EST 1.0 {tablet} active eCW1 ([facility] [place]) clopidogrel 75 MG Oral Tablet Clopidogrel Bisulfate 75 MG Clopidogrel Bisulfate 75 MG 05/07/2020 12:00:00 AM EST 1.0 {tablet} activ e Clopidogrel Bisulfate 75 MG eCW1 ([facility] [place]) atorvastatin 40 MG Oral Tablet Atorvastatin Calcium 40 MG Atorvastatin Calcium 40 MG 05/07/2020 12:00:00 AM EST 1.0 {tablet} activ e Atorvastatin Calcium 40 MG eCW1 ([facility] [place]) atorvastatin 40 MG Oral Tablet Atorvastatin Calcium 40 MG Atorvastatin Calcium 40 MG 05/07/2020 12:00:00 AM EST 1.0 {tablet} activ e Atorvastatin Calcium 40 MG eCW1 ([facility] [place]) Aspirin 81 MG Delayed Release Oral Tablet Aspirin 81 MG 05/07/2020 12:00:00 AM EST 1.0 {tablet} active Aspirin 81 MG eCW1 ([facility] [place]) clopidogrel 75 MG Oral Tablet Clopidogrel Bisulfate 75 MG Clopidogrel Bisulfate 75 MG 05/07/2020 12:00:00 AM EST 1.0 {tablet} active eCW1 ([facility] [place]) atorvastatin 40 MG Oral Tablet Atorvastatin Calcium 40 MG Atorvastatin Calcium 40 MG 05/07/2020 12:00:00 AM EST 1.0 {tablet} activ e Atorvastatin Calcium 40 MG eCW1 ([facility] [place]) clopidogrel 75 MG Oral Tablet Clopidogrel Bisulfate 75 MG Clopidogrel Bisulfate 75 MG 05/07/2020 12:00:00 AM EST 1.0 {tablet} activ e Clopidogrel Bisulfate 75 MG eCW1 ([facility] [place]) Aspirin 81 MG Delayed Release Oral Tablet Aspirin 81 MG 05/07/2020 12:00:00 AM EST 1.0 {tablet} active Aspirin 81 MG eCW1 ([facility] [place]) clopidogrel 75 MG Oral Tablet Clopidogrel Bisulfate 75 MG Clopidogrel Bisulfate 75 MG 05/07/2020 12:00:00 AM EST 1.0 {tablet} activ e Clopidogrel Bisulfate 75 MG eCW1 ([facility] [place]) clopidogrel 75 MG Oral Tablet Clopidogrel Bisulfate 75 MG Clopidogrel Bisulfate 75 MG 05/07/2020 12:00:00 AM EST 1.0 {tablet} activ e Clopidogrel Bisulfate 75 MG eCW1 ([facility] [place]) atorvastatin 40 MG Oral Tablet Atorvastatin Calcium 40 MG Atorvastatin Calcium 40 MG 05/07/2020 12:00:00 AM EST 1.0 {tablet} activ e Atorvastatin Calcium 40 MG eCW1 ([facility] [place]) Aspirin 81 MG Delayed Release Oral Tablet Aspirin 81 MG 05/07/2020 12:00:00 AM EST 1.0 {tablet} active Aspirin 81 MG eCW1 ([facility] [place]) atorvastatin 40 MG Oral Tablet Atorvastatin Calcium 40 MG Atorvastatin Calcium 40 MG 05/07/2020 12:00:00 AM EST 1.0 {tablet} activ e Atorvastatin Calcium 40 MG eCW1 ([facility] [place]) Aspirin 81 MG Delayed Release Oral Tablet Aspirin 81 MG 05/07/2020 12:00:00 AM EST 1.0 {tablet} active Aspirin 81 MG eCW1 ([facility] [place]) atorvastatin 40 MG Oral Tablet Atorvastatin Calcium 40 MG Atorvastatin Calcium 40 MG 05/07/2020 12:00:00 AM EST 1.0 {tablet} activ e Atorvastatin Calcium 40 MG eCW1 ([facility] [place]) clopidogrel 75 MG Oral Tablet Clopidogrel Bisulfate 75 MG Clopidogrel Bisulfate 75 MG 05/07/2020 12:00:00 AM EST 1.0 {tablet} activ e Clopidogrel Bisulfate 75 MG eCW1 ([facility] [place]) Aspirin 81 MG Delayed Release Oral Tablet Aspirin 81 MG 05/07/2020 12:00:00 AM EST 1.0 {tablet} active Aspirin 81 MG eCW1 ([facility] [place]) Isosorbide Mononitrate 10 MG Oral Tablet Isosorbide Mononitr ate 04/23/2020 12:00:00 AM EDT ORAL active M EDENT ([facility]) Colchicine 0.6 MG Oral Capsule Colchicine 04/23/2020 12:00:00 AM EDT ORAL active MEDENT ([facility]) atorvastatin 40 MG Oral Tablet Atorvastatin Calcium 04/22/2020 1 2:00:00 AM EDT ORAL active MEDENT ( [facility]) Metoprolol Tartrate 50 MG Oral Tablet Metoprolol Tartrate 12:00:00 AM EDT ORAL completed MEDENT ([facility]) Aspirin 81 MG Delayed Release Oral Tablet Aspirin 04/22/2020 1 2:00:00 AM EDT ORAL active MEDENT ([facility]) clopidogrel 75 MG Oral Tablet Clopidogrel Bisulfate 04/22/2020 1 2:00:00 AM EDT ORAL active MEDENT ( [facility]) Omeprazole 20 MG Delayed Release Oral Capsule Omeprazole 20 MG 04/17/2020 12:00:00 AM EDT active Omeprazo le 20 MG eCW1 ([facility] [place]) Omeprazole 20 MG Delayed Release Oral Capsule Omeprazole 20 MG 04/17/2020 12:00:00 AM EDT active Omeprazo le 20 MG eCW1 ([facility] [place]) Omeprazole 20 MG Delayed Release Oral Capsule Omeprazole 20 MG 04/17/2020 12:00:00 AM EDT active Omeprazo le 20 MG eCW1 ([facility] [place]) Omeprazole 20 MG Delayed Release Oral Capsule Omeprazole 20 MG 04/17/2020 12:00:00 AM EDT active Omeprazo le 20 MG eCW1 ([facility] [place]) Omeprazole 20 MG Delayed Release Oral Capsule Omeprazole 20 MG 04/17/2020 12:00:00 AM EDT active Omeprazo le 20 MG eCW1 ([facility] [place]) Omeprazole 20 MG Delayed Release Oral Capsule Omeprazole 20 MG 04/17/2020 12:00:00 AM EDT active Omeprazo le 20 MG eCW1 ([facility] [place]) Omeprazole 20 MG Delayed Release Oral Capsule Omeprazole 20 MG 04/17/2020 12:00:00 AM EDT active Omeprazo le 20 MG eCW1 ([facility] [place]) Omeprazole 20 MG Delayed Release Oral Capsule Omeprazole 20 MG 04/17/2020 12:00:00 AM EDT active Omeprazo le 20 MG eCW1 ([facility] [place]) Omeprazole 20 MG Delayed Release Oral Capsule Omeprazole 20 MG 04/17/2020 12:00:00 AM EDT active Omeprazo le 20 MG eCW1 ([facility] [place]) Omeprazole 20 MG Delayed Release Oral Capsule Omeprazole 20 MG 04/17/2020 12:00:00 AM EDT active Omeprazo le 20 MG eCW1 ([facility] [place]) Omeprazole 20 MG Delayed Release Oral Capsule Omeprazole 20 MG 04/17/2020 12:00:00 AM EDT active Omeprazo le 20 MG eCW1 ([facility] [place]) Omeprazole 20 MG Delayed Release Oral Capsule Omeprazole 20 MG 04/17/2020 12:00:00 AM EDT active Omeprazo le 20 MG eCW1 ([facility] [place]) Omeprazole 20 MG Delayed Release Oral Capsule Omeprazole 20 MG 04/17/2020 12:00:00 AM EDT active Omeprazo le 20 MG eCW1 ([facility] [place]) Omeprazole 20 MG Delayed Release Oral Capsule Omeprazole 20 MG 04/17/2020 12:00:00 AM EDT active Omeprazo le 20 MG eCW1 ([facility] [place]) Omeprazole 20 MG Delayed Release Oral Capsule Omeprazole 20 MG 04/17/2020 12:00:00 AM EDT active Omeprazo le 20 MG eCW1 ([facility] [place]) Omeprazole 20 MG Delayed Release Oral Capsule Omeprazole 20 MG 04/17/2020 12:00:00 AM EDT active Omeprazo le 20 MG eCW1 ([facility] [place]) Omeprazole 20 MG Delayed Release Oral Capsule Omeprazole 20 MG 04/17/2020 12:00:00 AM EDT active Omeprazo le 20 MG eCW1 ([facility] [place]) Omeprazole 20 MG Delayed Release Oral Capsule Omeprazole 20 MG 04/17/2020 12:00:00 AM EDT active Omeprazo le 20 MG eCW1 ([facility] [place]) Omeprazole 20 MG Delayed Release Oral Capsule Omeprazole 20 MG 04/17/2020 12:00:00 AM EDT active Omeprazo le 20 MG eCW1 ([facility] [place]) Omeprazole 20 MG Delayed Release Oral Capsule Omeprazole 20 MG 04/17/2020 12:00:00 AM EDT active Omeprazo le 20 MG eCW1 ([facility] [place]) Omeprazole 20 MG Delayed Release Oral Capsule Omeprazole 20 MG 04/17/2020 12:00:00 AM EDT active Omeprazo le 20 MG eCW1 ([facility] [place]) Omeprazole 20 MG Delayed Release Oral Capsule Omeprazole 20 MG 04/17/2020 12:00:00 AM EDT active Omeprazo le 20 MG eCW1 ([facility] [place]) Omeprazole 20 MG Delayed Release Oral Capsule Omeprazole 20 MG 04/17/2020 12:00:00 AM EDT active Omeprazo le 20 MG eCW1 ([facility] [place]) Omeprazole 20 MG Delayed Release Oral Capsule Omeprazole 20 MG 04/17/2020 12:00:00 AM EDT active Omeprazo le 20 MG eCW1 ([facility] [place]) Omeprazole 20 MG Delayed Release Oral Capsule Omeprazole 20 MG 04/17/2020 12:00:00 AM EDT active Omeprazo le 20 MG eCW1 ([facility] [place]) Omeprazole 20 MG Delayed Release Oral Capsule Omeprazole 20 MG 04/17/2020 12:00:00 AM EDT active Omeprazo le 20 MG eCW1 ([facility] [place]) Omeprazole 20 MG Delayed Release Oral Capsule Omeprazole 20 MG 04/17/2020 12:00:00 AM EDT active Omeprazo le 20 MG eCW1 ([facility] [place]) Omeprazole 20 MG Delayed Release Oral Capsule Omeprazole 20 MG 04/17/2020 12:00:00 AM EDT active Omeprazo le 20 MG eCW1 ([facility] [place]) Omeprazole 20 MG Delayed Release Oral Capsule Omeprazole 20 MG 04/17/2020 12:00:00 AM EDT active Omeprazo le 20 MG eCW1 ([facility] [place]) Omeprazole 20 MG Delayed Release Oral Capsule Omeprazole 20 MG 04/17/2020 12:00:00 AM EDT active Omeprazo le 20 MG eCW1 ([facility] [place]) Omeprazole 20 MG Delayed Release Oral Capsule Omeprazole 20 MG 04/17/2020 12:00:00 AM EDT active Omeprazo le 20 MG eCW1 ([facility] [place]) Omeprazole 20 MG Delayed Release Oral Capsule Omeprazole 20 MG 04/17/2020 12:00:00 AM EDT active Omeprazo le 20 MG eCW1 ([facility] [place]) Omeprazole 20 MG Delayed Release Oral Capsule Omeprazole 20 MG 04/17/2020 12:00:00 AM EDT active e CW1 ([facility] [place]) Omeprazole 20 MG Delayed Release Oral Capsule Omeprazole 20 MG 04/17/2020 12:00:00 AM EDT active Omeprazo le 20 MG eCW1 ([facility] [place]) Omeprazole 20 MG Delayed Release Oral Capsule Omeprazole 20 MG 04/17/2020 12:00:00 AM EDT active Omeprazo le 20 MG eCW1 ([facility] [place]) Omeprazole 20 MG Delayed Release Oral Capsule Omeprazole 20 MG 04/17/2020 12:00:00 AM EDT active Omeprazo le 20 MG eCW1 ([facility] [place]) Omeprazole 20 MG Delayed Release Oral Capsule Omeprazole 20 MG 04/17/2020 12:00:00 AM EDT active Omeprazo le 20 MG eCW1 ([facility] [place]) Omeprazole 20 MG Delayed Release Oral Capsule Omeprazole 20 MG 04/17/2020 12:00:00 AM EDT active Omeprazo le 20 MG eCW1 ([facility] [place]) Omeprazole 20 MG Delayed Release Oral Capsule Omeprazole 20 MG 04/17/2020 12:00:00 AM EDT active Omeprazo le 20 MG eCW1 ([facility] [place]) Omeprazole 20 MG Delayed Release Oral Capsule Omeprazole 20 MG 04/17/2020 12:00:00 AM EDT active Omeprazo le 20 MG eCW1 ([facility] [place]) clopidogrel 75 MG Oral Tablet clopidogrel (PLAVIX) tab let 75 mg clopidogrel (PLAVIX) tablet 75 mg 04/10/2020 09:00:00 AM EDT 75 mg Oral active 75 mg, Oral, Daily Standard, First dose on Wed04/10/20 at 0900, For 30 days [facility] Medication administered onsite Aspirin 81 MG Chewable Tablet Aspirin 81 MG Oral Table t Chewable Aspirin 81 MG Oral Tablet Chewable 04/10/2020 12:00:00 AM EDT 81 mg Oral active Chew 1 tablet by Mouth daily [facility] clopidogrel 75 MG Oral Tablet Clopidogrel Bisulfate 75 MG Oral Tablet (PLAVIX) Clopidogrel Bisulfate 75 MG Oral Tablet (PLAVIX) 04/10/2020 12:00:00 AM EDT 75 mg Oral active Take 1 tablet by mouth d [facility] quetiapine 25 MG Oral Tablet QUEtiapine (SEROquel) tab let 25 mg QUEtiapine (SEROquel) tablet 25 mg 04/09/2020 04:06:23 PM EDT 25 mg Oral active 25 mg, Oral, Nightly PRN, sleep or agitation, Starting Wed04/09/20 at 1606, For 30 days [facility] Medication administered onsite atorvastatin 40 MG Oral Tablet Atorvastatin Calcium 40 MG Oral Tablet (LIPITOR) Atorvastatin Calcium 40 MG Oral Tablet (LIPITOR) 04/09/2020 12:00:00 AM EDT 40 mg Oral active Take 1 tablet by mouth e very evening [facility] Metoprolol Tartrate 50 MG Oral Tablet Me toprolol Tartrate 50 MG Oral Tablet (LOPRESSOR) Metoprolol Tartrate 50 MG Oral Tablet (LOPRESSOR) 03/28 12:00:00 AM EDT 50 mg Oral active Take 1 tablet by mouth Two Times Daily [facility] quetiapine 25 MG Oral Tablet QUEtiapine (SEROquel) tab let 25 mg QUEtiapine (SEROquel) tablet 25 mg 04/08/2020 11:00:00 PM EDT 25 mg Oral completed 25 mg, Oral, Once, Wed04/08/20 at 2300, For 1 dose [facility] Medication administered onsite Melatonin 5 MG Oral Tablet melatonin tablet 5 mg melatonin t ablet 5 mg 04/08/2020 10:00:00 PM EDT 5 mg Oral active 5 mg, Oral, Nightly, First dose on Wed04/08/20 at 2200, For 30 days [facility] Medication administered onsite Metoprolol Tartrate 50 MG Oral Tablet metoprolol (LOPR ESSOR) tablet 50 mg metoprolol (LOPRESSOR) tablet 50 mg 04/08/2020 09:00:00 PM EDT 50 mg Oral active 50 mg, Oral, 2 Times Daily, First dose (after last modification) on Wed04/08/20 at 2100, For 57 doses [facility] Medication administered onsite Finasteride 5 MG Oral Tablet finasteride (PROSCAR) tab let 5 mg finasteride (PROSCAR) tablet 5 mg 04/08/2020 09:00:00 AM EDT 5 mg Oral active Benign Prostatic Hypertrophy 5 mg, Oral, Daily Standard, First dose on Wed04/08/20 at 0900, For 30 days [facility] Benign Prostatic Hypertrophy Medication administered onsite Tamsulosin hydrochloride 0.4 MG Oral Capsule tamsulosi n (FLOMAX) capsule 0.4 mg tamsulosin (FLOMAX) capsule 0.4 mg 04/08/2020 09:00:00 AM EDT 0.4 mg Oral active Benign Prostatic Hypertrophy 0.4 mg, Ora l, Daily Standard, First dose on Wed04/08/20 at 0900, For 30 days
Swallow whole. Do not crush, chew or open.
[facility] Benign Prostatic Hypertrophy Medication administered onsite Losartan Potassium 50 MG Oral Tablet losartan (COZAAR) tablet 100 mg losartan (COZAAR) tablet 100 mg 04/08/2020 09:00:00 AM EDT 100 mg Oral active Hypertension 100 mg, Oral, Daily Standar d, First dose on 04/08/20 at 0900, For 30 days
Check vital signs before administering
[facility] Hypertension Medication administered onsite 1 ML Lorazepam 2 MG/ML Injection LORazepam (ATIVAN) in jection 0.5 mg LORazepam (ATIVAN) injection 0.5 mg 04/08/2020 02:00:00 AM EDT 0.5 mg Intrave nous completed 0.5 mg, Intravenous, Once, Wed 1 at 0200, For 1 dose [facility] Medication administered onsite atorvastatin 40 MG Oral Tablet atorvastatin (LIPITOR) tablet 40 mg atorvastatin (LIPITOR) tablet 40 mg 04/07/2020 09:00:00 PM EDT 40 mg Oral active 40 mg, Oral, Every evening, First dose on 04/07/20 at 2100, For 30 days [facility] Medication administered onsite gabapentin 300 MG Oral Capsule gabapentin (NEURONTIN) capsule 300 mg gabapentin (NEURONTIN) capsule 300 mg 04/07/2020 09:00:00 PM EDT 300 mg Oral active Restless Leg Syndrome 300 mg, Oral, 2 Times Daily, First dose on 04/07/20 at 2100, For 30 days [facility] Restless Leg Syndrome Medication administered onsite Metoprolol Tartrate 25 MG Oral Tablet me toprolol tartrate (LOPRESSOR) tablet 25 mg metoprolol tartrate (LOPRESSOR) tablet 25 mg 04/07/2020 12:45:00 PM EDT 25 mg Oral aborted 25 mg, Ora l, 2 Times Daily, First dose on 04/07/20 at 1245, For 30 days [facility] Medication administered onsite Nitroglycerin 0.4 MG Sublingual Tablet n itroglycerin (NITROSTAT) SL tablet 0.4 mg nitroglycerin (NITROSTAT) SL tablet 0.4 mg 04/07/2020 12:09:17 P M EDT 0.4 mg Sublingual active 0.4 mg, S ublingual, Every 5 min PRN, Chest pain, Starting 04/07/20 at 1209, For 30 days [facility] Medication administered onsite Aspirin 81 MG Chewable Tablet aspirin chewable tablet 81 mg aspirin chewable tablet 81 mg 04/07/2020 12:00:00 PM EDT 81 mg Oral activ e 81 mg, Oral, Daily Standard, First dose (after last modification) on 04/07/20 at 1200, For 30 days
Chew tablet before swallowing.
[facility] Medication administered onsite Acetaminophen 325 MG Oral [...] mg from all sources in 24 hours.
[facility] Medication administered onsite Insurance Providers Payer name Policy type / Coverage type Policy ID Covered libertarian ID Covered libertarian's relationship to clements Policy Clements Plan Information MEDICARE A [id number] Self [id number] N31 MEDICARE [id number] SP [id number] [place] Primary [id number] Self 0 [id number] [place] Medicare Primary [id number] Self 0 [id number] [place] Medicare Primary [id number] .[id number] Self 0 [id number] [place] [facility] Part B [id number] Self V [id number] [place] Medicare Primary [id number] .[id number] Self 0 [id number] BS [place] [facility] Part B [id number] Self V [id number] [place] Medicare Primary [id number] Self 0 [id number] BS [place] Medigap Part B [id number] [id number] Self V [id number] [place] Medicare Primary [id number] [id number] Self 0 [id number] BS [place] Medigap Part B [id number] 2..[id number] Self V [id number] BS [place] Medigap Part B [id number] 2..[id number] Self V [id number] BS [place] Medigap Part B [id number] 2..[id number]6.0 Self V [id number] [place] PPO 302/307 [id number] SP [id number] AARP U [id number] Self [id number] [employer] Med[place] Part B [id number] 2..[id number]10.0 Self 3 [id number] [employer] [place] Part B [id number] 2..[id number]20.0 Self 3 [id number] [employer] [place] Part B [id number] 2..1.137616.3.227.99.991.64263.0 Self 3 [id number] [employer] [place] Part B [id number] 2.16.840.1.962178.3.227.99.991.57060.0 Self 3 [id number] [employer] [place] Part B [id number] 2.16.840.1.375436.3.227.99.991.45584.0 Self 3 [id number] [employer] [place] Part B [id number] 2.16.840.1.941515.3.227.99.991.10400.0 Self 3 [id number] A[employer]/ [employer] Care Options Med[place]ap Part B [id number] 2.16.840.1.046896.3.227.99.177.9179.0 Self [id number] A[employer]/ [employer] Care Options [place] Part B [id number] 2.16.840.1.758123.3.227.99.177.9179.0 Self [id number] AARP HE[employer] CARE OPTIONS [id number] [facility] Ppo Commercial [id number] 2.16.840.1.317044.3.227.99.177.9179. 0 Self [id number] Medicare - [place] Medicare Primary [id number] 2.16.840.1.526433.3.227.99.177.9179.0 Self [id number] [employer] Medigap Part B [id number] 2.16840.1.472160.3.227.99.8646.5 7563.0 Self [id number] Medicare [place] Medicare Primary [id number] 2.16.840.1.555680.3.227.99.8646.99711.0 Self [id number] ANS-Medicare Part B [id number] ANSI-Commercial [id number] [facility] Part B [id number] 2.16.840.1.547256.3.227.99.991.78241.0 Self Y [id number] [employer] Options [facility] Part B [id number] 2.16.840.1.800074.3.227.99.572.17566.0 Self [id number] Medicare (Part B) Medicare Primary [id number] 2.16.840.1.860470.3.227.99.572.97028.0 Self 0 [id number] BCBS Ppo Commercial [id number] 2.16.840.1.644044.3.227.99.177.9179. 0 Self [id number] Medicare - [facility] Medicare Primary [id number] 2.16.840.1.1138 83.3.227.99.177.9179.0 Self [id number] AARP O [id number] S [id number] MEDICARE C [id number] S [id number] A [employer] [facility] Part B [id number]2.98814.0 Self [id number] Medicare (Part B) Medicare Primary [id number]3.0 Self 0 [id number] MEDICARE [id number] SP [id number] A MEDICARE [id number] SP [id number] A AARP HEALTH CARE OPTIONS -O/P [id number] 18 [id number] MEDICARE -O/P [id number] 18 [id number] MEDICARE -I/P [id number] 18 [id number] MEDICARE [id number] Retired [id number] N31 [id number] A [employer]ARP HE[employer] CARE OPTIONS [id number] Retired [id number] MEDICARE [id number] SP [id number] N31 [employer]ARP HE[employer] CARE OPTIONS [id number] SP [id number] A[employer] C[employer] OPTIONS 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 [id number] [employer] Options Med[place]ap Part B [id number] Self [id number] Medicare (Part B) Medicare Primary [id number] MRN.[id number] Self [id number] Medicare (Part B) Medicare Primary [id number] MRN.[id number] Self [id number] [employer] [facility] Part B [id number] MRN.[id number] Self [id number] Medicare (Part B) Medicare Primary [id number] MRN.[id number] Self [id number] Medicare (Part B) Medicare Primary [id number] MRN.[id number] Self [id number] MEDICARE [id number] S [id number] A [employer] [facility] Med[place] Part B [id number] MRN.[id number] Self [id number] Medicare (Part B) Medicare Primary [id number] [id number] Self [id number] Medicare (Part B) Medicare Primary [id number] MRN.[id number] Self [id number] [facility] Part B [id number] Self [id number] [place] Medicare Primary [id number] [id number] Self [id number] MEDICARE [id number] A [facility] Part B [id number] 2.16.840.1.185606.3.227.99.8646.5 7563.0 Self [id number] Medicare [place]GS Medicare Primary [id number] 2.16.840.1.228505.3.227.99.[address].33302.[id number] [facility] Part B [id number] 2.16.840.1.841751.3.227.99.8646.5 7563.0 Self [id number] Medicare [place]GS Medicare Primary [id number] [id number] Self [id number] ANSI-Medicare Part B [id number] ANSI-Commercial [id number] Problems, Conditions, and Diagnoses Code Display Name Description Problem Type Effective Dates Data Source(s) G31.84 Mild cognitive impairment, so stated MIL D COGNITIVE IMPAIRMENT, SO STATED Diagnosis 04/18/2021 10:16:00 AM EDT Rachel jarvis Z95.818 Presence of other cardiac implants and g rafts PRESENCE OF OTHER CARDIAC IMPLANTS AND GRAFTS Diagnosis 10/22/2020 11:00:00 AM EDT [facility] spital I25.2 Old myocardial infarction OLD MYOCARDIAL INFARCTION Di agnosis 10/22/2020 11:00:00 AM [facility] 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 [place] CORONARY ARTERY W/O ANG PCTRS Diagnosis 10/22/2020 11:00:00 AM [facility] Z96.651 Presence of right artificial knee joint PRESENCE OF RIGHT ARTIFICIAL KNEE JOINT Diagnosis 10/22/2020 11:00:00 AM T [facility] M25.561 Pain in right knee PAIN IN RIGHT KNEE Diagnosis 11:00:00 AM [facility] 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, right leg ATHSCL AUGUSTINE ARTERIES OF EXTRM W INTRMT ELIZA, RIGHT LEG Diagnosis 10/22/2020 11:00:00 AM T [facility] sp[facility] I21.4 Non-ST elevation (NSTEMI) myocardial inf arction Non-ST elevation (NSTEMI) myocardial infarction Diagnosis 04/07/2020 12:19:33 PM EDT [facility] R39.11 Hesitancy of micturition Hesitancy of micturition Diag nosis 04/07/2020 11:52:56 AM [facility] N40.1 Benign prostatic hyperplasia with lower urinary tract symptoms Benign prostatic hyperplasia with lower urinary tract symptoms Diagnosis 04/07/2020 11:52:56 AM [facility] NSTEMI NSTEMI Diagnosis 04/07/2020 11:03:00 AM ED [facility] C44.90 [id number] Problem 04/29/2021 12:00:00 AM ED T eCW1 ([facility]) [id number] Hallucinations Hallucinations Problem 04/17/2021 12:00: 00 AM EDT [facility] ([facility], ) [id number] Memory impairment Memory impairment Problem 04/17 12:00:00 AM EDT [facility] ([facility], ) C80.1 [id number] Carcinoma Problem 04/09/2021 12:00:00 AM ED T eCW1 ([facility]) C44.99 [id number] Skin carcinoma Problem 04/03/2021 12:00:00 A M EDT eCW1 ([facility]) C80.1 [id number] Carcinoma, undifferentiated Problem 03/28/20 12:00:00 AM EDT eCW1 ([facility]) R41.3 [id number] Memory loss Problem 02/19/2021 12:00:00 AM E DT eCW1 ([facility]) I73.9 [id number] Claudication Problem 10/24/2020 12:00:00 AM EDT eCW1 ([facility]) I73.9 [id number] Peripheral vascular disease Problem 10/23/19 12:00:00 AM EDT eCW1 ([facility]) R31.0 [id number] Gross hematuria Problem 09/04/2020 12:00:00 AM EST eCW1 ([facility]) M47.27 [id number] Lumbosacral spondylosis with radiculopath y Problem 08/27/2020 12:00:00 AM EST eCW1 ([facility]) I21.4 [id number] Non-ST elevation stefani cardial infarction (NSTEMI) in recovery phase Problem 05/07/2020 12:00:00 AM EST eCW1 (On license of [facility]) K21.9 Gastroesophageal reflux disease without esophagitis Gastroesophageal reflux disease without esophagitis Problem 05/07/2020 12:00:00 AM ES T eCW1 ([facility]) E66.3 Overweight Overweight Problem 04/23/2020 12:00:00 AM ED T [facility] ([facility]) 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 Problem 04/23/2020 12:00:00 AM EDT [facility] ([facility]) Z95.5 Patient post percutaneous transluminal c oronary angioplasty Patient post percutaneous transluminal coronary angioplasty Problem 020 12:00:00 AM EDT [facility] ([facility]) Surgeries/Procedures Procedure Description Date Indications Data Source(s) NURSE ONLY VISIT FOR DRESSING CHANGE 04/22/2021 12:00: 00 AM EDT eCW1 ([facility]) MRI BRAIN BRAIN STEM W/O CONTRAST MATERIAL 04/19/2021 12:00:00 AM EDT [facility] ([facility], ) MRI BRAIN BRAIN STEM W/O CONTRAST MATERIAL 04/19/2021 12:00:00 AM EDT [facility] ([facility], ) Assessment/Care Planning For Patient W/Cognitive Impairment 04/17/2021 12:00:00 AM EDT [facility] ([facility], ) Med: Derm Lidocaine with Epinephrine Inj ection 1% with 2 ml sodium bicarbonate Intradermally to marked areas 04/03/2021 12:00:00 AM EDT eC ([facility]) Med: Derm 1% Lidocaine with Epinephrine Injection Intr adermally to marked areas 03/06/2021 12:00:00 AM EDT [facility] (On license of [facility]) OFFICE OUTPATIENT VISIT 15 MINUTES 01/22/2021 12:00:00 AM EDT [facility] ([facility] ) Chronic Care MGMT 20 Mins Clinical Staff Time Per Calendar M [facility] 11/11/2020 12:00:00 AM EDT [facility] ([facility] [place]) DUP-SCAN XTR VEINS UNILATERAL/LIMITED STUDY EXTREMITY STUDY 10/22/2020 12:00:00 AM [facility] DUP-SCAN LXTR ART/ARTL BPGS UNI/LMTD STUDY LOWER EXTREMITY S TUDY 10/22/2020 12:00:00 AM [facility] RADIOLOGIC EXAMINATION KNEE 3 VIEWS X-RAY EXAM OF KNEE 3 12:00:00 AM [facility] APPLICATION LONG LEG SPLINT THIGH ANKLE/TOES APPLICATION BERNA G LEG SPLINT 10/22/2020 12:00:00 AM [facility] EMERGENCY DEPARTMENT VISIT HIGH/URGENT SEVERITY EMERGENCY DE PT VISIT 10/22/2020 12:00:00 AM [facility] Chronic Care MGMT 20 Mins Clinical Staff Time Per Calendar M [facility] 08/26/2020 12:00:00 AM EST [facility] ([facility] [place]) uro PVR (Post Voiding Residual) Bladder Scan 12:00:00 AM EST eC ([facility]) ECG ROUTINE ECG W/LEAST 12 LDS W/I&R 04/23/2020 12:00: 00 AM EDT [facility] ([facility]) Arterial Pressure Waveform Analysis For Assessment Of Centra l Art 04/23/2020 12:00:00 AM EDT [facility] ([facility]) EKG 12-LEAD - CMAXX REPORT <td>EKG 12-LEAD - CMAXX REPORT</td><td></td><td>04/10/2020 11:14 AM EDT</td><td></td><td></td> 04/10/2020 11:14:53 AM [facility] EKG 12-LEAD - CMAXX REPORT <td>EKG 12-LEAD - CMAXX REPORT</td><td></td><td>04/10/2020 11:14 AM EDT</td><td></td><td></td> 04/10/2020 11:14:53 AM [facility] EKG 12-LEAD <td>EKG 12-LEAD</td><td>Rout ine</td><td>04/10/2020 11:14 AM EDT</td><td></td><td> </td> 04/10/2020 11:14:53 AM [facility] BLOOD COUNT COMPLETE AUTOMATED <td>CBC</td><td>Routine </td><td>04/10/2020 2:53 AM EDT</td><td></td><td> </td> 04/10/2020 02:53:00 AM [facility] CREATINE KINASE TOTAL <td>CK</td><td>Routine</td>< td>04/10/2020 2:53 AM EDT</td><td></td><td> </td> 04/10/2020 02:53:00 AM [facility] BASIC METABOLIC PANEL CALCIUM TOTAL <td>BASIC METABOLI C PANEL</td><td>Routine</td><td>04/10/2020 2:53 AM EDT</td><td></td><td> </td> 04/10/2020 02:53:00 AM [facility] TOOL POLISHING MACHINE OPERATOR PROCEDURE <td>TOOL POLISHING MACHINE OPERATOR PROCEDURE</td>< td>Routine</td><td>04/09/2020 1:31 PM EDT</td><td></td><td> </td> 04/09/2020 01:31:31 PM [facility] COAGULATION TIME ACTIVATED <td>POCT ISTAT ACT</td><td> Routine</td><td>04/09/2020 11:34 AM EDT</td><td></td><td> </td> 04/09/2020 11:34:00 AM [facility] PRQ TRLUML CORONARY STENT W/ANGIO ONE ART/BRNCH [[id number] ] <td>PRQ TRLUML CORONARY STENT W/ANGIO ONE ART/BRNCH [[id number]]</td><td></td><td>04/09/2020 10:19 AM EDT</td><td> NSTEMI</td><td></td> 04/09/2020 10:19:00 AM EDT - 04/09/2020 11:50:00 AM [facility] LEFT HEART CATHETERIZATION;PERCUTANEOUS <td>LEFT HEART CATHETERIZATION;PERCUTANEOUS</td><td></td><td>04/09/2020 10:19 AM EDT</td><td> NSTEMI</td><td></td> 04/09/2020 10:19:00 AM EDT - 04/09/2020 11:50:00 AM [facility] CARDIAC CATH PROCEDURE LOG <td>CARDIAC CATH PROCEDURE LOG</td><td></td><td>04/09/2020 9:46 AM EDT</td><td></td><td></td> 04/09/2020 09:46:15 AM [facility] HEPARIN ASSAY <td>ANTI-XA UNFRACTIONATED H EPARIN LEVEL</td><td>Routine</td><td>04/09/2020 8:14 AM EDT</td><td></td><td> </td> 04/09/2020 08:14:00 AM [facility] HEPARIN ASSAY <td>ANTI-XA UNFRACTIONATED H EPARIN LEVEL</td><td>Routine</td><td>04/09/2020 1:29 AM EDT</td><td></td><td> </td> 04/09/2020 01:29:00 AM [facility] PROTHROMBIN TIME <td>PROTIME INR</td><td>Rout ine</td><td>04/09/2020 1:29 AM EDT</td><td></td><td> </td> 04/09/2020 01:29:00 AM [facility] BASIC METABOLIC PANEL CALCIUM TOTAL <td>BASIC METABOLI C PANEL</td><td>Routine</td><td>04/09/2020 1:29 AM EDT</td><td></td><td> </td> 04/09/2020 01:29:00 AM [facility] TOOL POLISHING MACHINE OPERATOR PROCEDURE <td>TOOL POLISHING MACHINE OPERATOR PROCEDURE</td>< td>Routine</td><td>04/09/2020 12:15 AM EDT</td><td></td><td></td> 04/09/2020 12:15:10 AM [facility] HEPARIN ASSAY <td>ANTI-XA UNFRACTIONATED H EPARIN LEVEL</td><td>Routine</td><td>04/08/2020 2:33 PM EDT</td><td></td><td> </td> 04/08/2020 02:33:00 PM [facility] TOOL POLISHING MACHINE OPERATOR PROCEDURE <td>TOOL POLISHING MACHINE OPERATOR PROCEDURE</td>< td>Routine</td><td>04/08/2020 8:31 AM EDT</td><td></td><td></td> 04/08/2020 08:31:18 AM [facility] HEPARIN ASSAY <td>ANTI-XA UNFRACTIONATED H EPARIN LEVEL</td><td>Routine</td><td>04/08/2020 6:18 AM EDT</td><td></td><td> </td> 04/08/2020 06:18:00 AM [facility] PROTHROMBIN TIME <td>PROTIME INR</td><td>Rout ine</td><td>04/08/2020 6:18 AM EDT</td><td></td><td> </td> 04/08/2020 06:18:00 AM [facility] BLOOD COUNT COMPLETE AUTOMATED <td>CBC</td><td>Routine </td><td>04/08/2020 6:18 AM EDT</td><td></td><td> </td> 04/08/2020 06:18:00 AM [facility] TROPONIN QUANTITATIVE <td>TROPONIN T</td><td>Routi ne</td><td>04/08/2020 6:18 AM EDT</td><td></td><td> </td> 04/08/2020 06:18:00 AM [facility] MAGNESIUM <td>MAGNESIUM LEVEL</td><td> Routine</td><td>04/08/2020 6:18 AM EDT</td><td></td><td> </td> 04/08/2020 06:18:00 AM [facility] BASIC METABOLIC PANEL CALCIUM TOTAL <td>BASIC METABOLI C PANEL</td><td>Routine</td><td>04/08/2020 6:18 AM EDT</td><td></td><td> </td> 04/08/2020 06:18:00 AM [facility] HEPARIN ASSAY <td>ANTI-XA UNFRACTIONATED H EPARIN LEVEL</td><td>Routine</td><td>04/07/2020 6:46 PM EDT</td><td></td><td> </td> 04/07/2020 06:46:00 PM [facility] TROPONIN QUANTITATIVE <td>TROPONIN T</td><td>Timed </td><td>04/07/2020 6:46 PM EDT</td><td></td><td> </td> 04/07/2020 06:46:00 PM [facility] ECHO TTHRC R-T 2D W/WOM-MODE COMPL SPEC&COLR DOP <td>E CHOCARDIOGRAM 2D COMPLETE</td><td>Routine</td><td>04/07/2020 12:53 PM EDT</td><td></td><td> </td> 04/07/2020 12:53:14 PM [facility] HEPARIN ASSAY <td>ANTI-XA UNFRACTIONATED H EPARIN LEVEL</td><td>Routine</td><td>04/07/2020 12:15 PM EDT</td><td></td><td> </td> 04/07/2020 12:15:00 PM [facility] PROTHROMBIN TIME <td>PROTIME INR</td><td>Rout ine</td><td>04/07/2020 12:15 PM EDT</td><td></td><td> </td> 04/07/2020 12:15:00 PM [facility] BLOOD COUNT COMPLETE AUTOMATED <td>CBC</td><td>Routine </td><td>04/07/2020 12:15 PM EDT</td><td></td><td> </td> 04/07/2020 12:15:00 PM [facility] TROPONIN QUANTITATIVE <td>TROPONIN T</td><td>Timed </td><td>04/07/2020 12:15 PM EDT</td><td></td><td> </td> 04/07/2020 12:15:00 PM [facility] MAGNESIUM <td>MAGNESIUM LEVEL</td><td> Routine</td><td>04/07/2020 12:15 PM EDT</td><td></td><td> </td> 04/07/2020 12:15:00 PM [facility] LIPID PANEL <td>LIPID PANEL</td><td>Rout ine</td><td>04/07/2020 12:15 PM EDT</td><td></td><td> </td> 04/07/2020 12:15:00 PM [facility] BASIC METABOLIC PANEL CALCIUM TOTAL <td>BASIC METABOLI C PANEL</td><td>Routine</td><td>04/07/2020 12:15 PM EDT</td><td></td><td> </td> 04/07/2020 12:15:00 PM [facility] EKG 12-LEAD - CMAXX REPORT <td>EKG 12-LEAD - CMAXX REPORT</td><td></td><td>04/07/2020 12:11 PM EDT</td><td></td><td></td> 04/07/2020 12:11:13 PM [facility] EKG 12-LEAD - CMAXX REPORT <td>EKG 12-LEAD - CMAXX REPORT</td><td></td><td>04/07/2020 12:11 PM EDT</td><td></td><td></td> 04/07/2020 12:11:13 PM [facility] EKG 12-LEAD <td>EKG 12-LEAD</td><td>Rout ine</td><td>04/07/2020 12:11 PM EDT</td><td></td><td> </td> 04/07/2020 12:11:13 PM [facility] Non-covered item or service 04/06/2020 12:00:00 AM [facility] Results ID Date Data Source [id number] 04/30/2021 05:55:00 PM [facility] Name Value Range Interpretation Code Description Data Rosanna rce(s) Supporting Document(s) Troponin I 0.000-0.056 Normal (applies to non-numeric resu lts) [facility] ID Date Data Source [id number] 04/30/2021 04:09:00 PM [facility] Name Value Range Interpretation Code Description Data Rosanna rce(s) Supporting Document(s) Troponin I 0.000-0.056 Normal (applies to non-numeric resu lts) [facility] ID Date Data Source [id number] 04/30/2021 03:02:00 PM [facility] Collected By: Nurse Initials: SHIMA Time Collected: 1430 Collected By: Nurse Initials: SHIMA Time Collected: 1430 Name Value Range Interpretation Code Description Data Rosanna rce(s) Supporting Document(s) Color,Urine Colorl-Dk Y Normal (applies to non-numeric res ults) [facility] Clarity,Urine Clear Normal (applies to non-numeric re sults) [facility] Specific [place],Urine 1.005-1.030 Normal (applies to non- numeric results) [facility] pH,Urine 5.0-8.0 Normal (applies to non-numeric resul ts) [facility] Protein,Urine Negative Normal (applies to non-numeric re sults) [facility] Glucose,Urine Negative Normal (applies to non-numeric re sults) [facility] Ketones,Urine Negative Normal (applies to non-numeric re sults) [facility] Blood,Urine Negative [facility] Bil[facility] Negative Normal (applies to non-numeric results) [facility] Urobilinogen,Urine 0.2-1.0 Normal (applies to non-numer ic results) [facility] Leukocyte Esterase,Urine Negative Normal (applies to non -numeric results) [facility] Nitrite,Urine Negative Normal (applies to non-numeric re sults) [facility] ID Date Data Source [id number] 04/30/2021 03:02:00 PM EDT [facility] Collected By: Nurse Initials: SHIMA Time Collected: 1429 Collected By: Nurse Initials: SHIMA Time Collected: 1429 Name Value Range Interpretation Code Description Data Rosanna rce(s) Supporting Document(s) RBC,Urine None Seen [facility] WBC,Urine None Seen [facility] Casts,Urine None Seen Normal (applies to non-numeric resu lts) [facility] Squamous Cells,Urine None Seen [facility] Bacteria,Urine None Seen [facility] ital ID Date Data Source [id number] 05/01/2021 08:01:00 AM EDT [facility] Imaging Services Department Imaging Report [address], [place] [address] %(RAD)RES..mtdd.print.filter("line") Name: ROBERT CERDA : 1935 Age/Sex: 85M Ordering Provider: Maite Hutchinson MD Med Rec #: [id number] Reg Status: [facility] ER Room #: Date of Service: 04/30/21 Report Number: [id number] cc:Ladan Carrillo MD Send Report To: [id number] CT/CT Chest for PE with Contrast Reason [...] Date/Time: 04/30/21 1405 Transcribed Date/Time: 05/01/21 0801 [employer] [place]: PRASHANT Name Value Range Interpretation Code Description Data Rosanna rce(s) Supporting Document(s) ID Date Data Source [id number] 05/01/2021 08:09:00 AM EDT [facility] Imaging Services Department Imaging Report [address], [place] [address] %(RAD)RES..mtdd.print.filter("line") Name: ROBERT CERDA : 1935 Age/Sex: 85M Ordering Provider: Maite Hutchinson MD Med Rec #: [id number] Reg Status: [facility] Room #: Date of Service: 04/30/21 Report Number: [id number] cc:Ladan Carrillo MD Send Report To: [id number] CT/CT Abdomen & Pelvis w Con Reason [...] rce(s) Supporting Document(s) ID Date Data Source [id number] 04/30/2021 11:45:00 AM EDT [facility] Name Value Range Interpretation Code Description Data Rosanna rce(s) Supporting Document(s) Respiratory specimen severe acute respir atory syndrome coronavirus 2 (SARS-CoV-2) RNA Negative (qualifier value) [place] [facility] This lab was ordered by Sweetser Tresa beckham and reported by . ID Date Data Source [id number] 04/30/2021 12:21:00 PM EDT [facility] Name Value Range Interpretation Code Description Data Rosanna rce(s) Supporting Document(s) SARS-CoV-2 RNA Negative Normal (applies to non-numeric r esults) [facility] Negative results should be treated as [...] approved; this test has been authorized by [facility] under an Emergency Use Authorization for use by laboratories certified under the Clinical Laboratory Improvement Amendments of 1988 (CLIA), 42 U.S.C. ???263a, to perform moderate complexity/high complexity tests and at the Point of Care (POC), i.e., in patient care settings operating under a CLIA Certificate of Waiver, Certificate of Compliance, or Certificate of Accreditation. Factsheets for healthcare providers: https://www.fda.gov/media/853158/download Factsheets for patients: https://www.fda.gov/media/056562/download The ID NOW Instrument is a rapid molecular in vitro diagnostic test utilizing an isothermal nucleic acid amplification technology intended for the qualitative detection of nucleic acid from the SARS-CoV-2 viral RNA. THIS IS A STATE REPORTABLE COMMUNICABLE DISEASE. Manual entry verified by Kelsy Werner 04/30/21 1221 ID Date Data Source [id number] 04/30/2021 12:27:00 PM EDT [facility] Name Value Range Interpretation Code Description Data Rosanna rce(s) Supporting Document(s) B-Type Natriuretic Peptide BNP <450 Normal (applies to non-numeric results) [facility] Results of this test should always be us ed in conjunction with the patients medical history, clinical presentation, and other findings. ID Date Data Source [id number] 04/30/2021 12:21:00 PM [facility] Name Value Range Interpretation Code Description Data Rosanna rce(s) Supporting Document(s) D-Dimer,Quant 0.19-0.50 Above high normal [facility] The negative predictive value for DVT or [...] on anticoagulant therapy. ID Date Data Source [id number] 04/30/2021 12:20:00 PM [facility] Name Value Range Interpretation Code Description Data Rosanna rce(s) Supporting Document(s) Sodium 138 mmol/L 136-145 Normal (applies to non-numeric resul ts) [facility] Potassium 3.5-5.1 Normal (applies to non-numeric resul ts) [facility] Chloride 102 mmol/L 98-107 Normal (applies to non-numeric resul ts) [facility] Carbon Dioxide CO2 21-32 Normal (applies to non-numer ic results) [facility] Anion Gap 5.0-16.0 Normal (applies to non-numeric resul ts) [facility] BUN 16 mg/dL 7-18 Normal (applies to non-numeric results) [facility] Creatinine,Serum 0.8-1.5 Normal (applies to non-numeric results) [facility] GFR >60 Normal (applies to non-numeric results) [facility] Glucose Level 105 mg/dL 60-99 Above high normal [facility] Reference range is only applicable when patient is fasting Note the following drug interference: Sulfasalazine Sulfapyridine Can see falsely depressed Can see falsely elevated result with up to 17% results with up to 11% decrease in measurement increase in measurement Recommend patients be collected for this test prior to administration of either drug. Calcium 8.5-10.1 Normal (applies to non-numeric resul ts) [facility] Bilirubin,Total 0.1-1.9 Normal (applies to non-numeric results) [facility] SGOT(AST) 12 U/L 15-[address] [facility] Note the following drug interference: Sulfasalazine Sulfapyridine Can see falsely depressed Can see falsely elevated result with up to 10% results with up to 10% decrease in measurement increase in measurement Recommend patients be collected for this test prior to administration of either drug. SGPT(ALT) 26 U/L 12-78 Normal (applies to non-numeric resul ts) [facility] Note the following drug interference: Sulfasalazine Sulfapyridine Can see falsely depressed Can see falsely elevated result with up to 29% results with up to 10% decrease in measurement increase in measurement Recommend patients be collected for this test prior to administration of either drug. Alkaline Phosphatase 99 U/L 38-126 Normal (applies to non-num kyle results) [facility] can increase Alkaline Phosp le vels up to 2 times the normal adult value. Normal values for children and adolescents are 2 to 3 times the normal adult value. Total Protein 6.0-8.2 Normal (applies to non-numeric re sults) [facility] Albumin Level 3.4-5.0 Normal (applies to non-numeric re sults) [facility] ID Date Data Source [id number] 04/30/2021 12:20:00 PM EDT [facility] Name Value Range Interpretation Code Description Data Rosanna rce(s) Supporting Document(s) Troponin I 0.000-0.056 Normal (applies to non-numeric resu lts) [facility] ID Date Data Source [id number] 05/01/2021 06:55:00 AM EDT [facility] Imaging Services Department Imaging Report [address] [address] %(RAD)RES..mtdd.print.filter("line") Name: ROBERT CERDA SR : 1935 Age/Sex: 85M Ordering Provider: Maite Hutchinson MD Med Rec #: [id number] Reg Status: [facility] Room #: Date of Service: 04/30/21 Report Number: [id number] cc:Ladan Carrillo MD Send Report To: [id number] XRP/XR Chest Xray Portable Reason for exam: [...] Date/Time: 04/30/21 1224 Transcribed Date/Time: 05/01/21 0655 [employer] Stillman: ANN-MARIE Name Value Range Interpretation Code Description Data Rosanna rce(s) Supporting Document(s) ID Date Data Source [id number] 04/30/2021 11:52:00 AM EDT [facility] Name Value Range Interpretation Code Description Data Rosanna rce(s) Supporting Document(s) White Blood Count 3.5-10.5 Normal (applies to non-numeri c results) [facility] Red Blood Count 4.30-5.70 Normal (applies to non-numeric results) [facility] Hemoglobin 13.5-17.5 Normal (applies to non-numeric resul ts) [facility] Hematocrit 38.8-50.0 Normal (applies to non-numeric resul ts) [facility] Mean Corpuscular Volume 81.2-95.1 Normal (applies to non- numeric results) [facility] Mean Corpuscular Hgb 25.6-32.2 Normal (applies to non-num kyle results) [facility] Mean Corpuscular Hgb Conc 32.0-36.0 Normal (applies to no n-numeric results) [facility] Red Cell Distribution Width 11.8-15.6 Normal (appli es to non-numeric results) [facility] Platelet Count 192 x10 3/uL 150-450 Normal (applies to non-numeric results) [facility] Mean Platelet Volume 9.4-12.4 Normal (applies to non-num kyle results) [facility] Neutrophils% (Auto) 31.0-71.0 Normal (applies to non-nume dasha results) [facility] Lymphocytes% (Auto) 20.0-55.0 Normal (applies to non-nume dasha results) [facility] Monocytes% (Auto) 4.0-12.0 Normal (applies to non-numeri c results) [facility] Eosinophils% (Auto) 1.0-8.0 Normal (applies to non-nume dasha results) [facility] Basophils% (Auto) 0.0-2.0 Normal (applies to non-numeri c results) [facility] Immature Granulocytes% (Auto) 0.0-2.0 Normal (kristina lies to non-numeric results) [facility] Neutrophils# (Auto) 1.50-6.20 Normal (applies to non-nume dasha results) [facility] Lymphocytes# (Auto) 1.20-4.00 Normal (applies to non-nume dasha results) [facility] Monocytes# (Auto) 0.00-0.90 Normal (applies to non-numeri c results) [facility] Eosinophils# (Auto) 0.00-0.50 Normal (applies to non-nume dasha results) [facility] Basophils# (Auto) 0.00-0.20 Normal (applies to non-numeri c results) [facility] Immature Granulocytes# (Auto) 0.00-7.00 No rmal (applies to non-numeric results) [facility] ID Date Data Source [id number] 04/23/2021 02:45:00 PM EDT [facility] Imaging Services Department Imaging Report [address], [place] [address] %(RAD)RES..mtdd.print.filter("line") Name: ROBERT CERDA : 1935 Age/Sex: 85M Ordering Provider: ROSEANNE Green Med Rec #: [id number] Reg Status: [facility] Room #: Date of Service: 04/23/21 Report Number: [id number] cc:Ladan Carrillo MD Send Report To: [id number] CT/CT Cervical Spine No Contrast Reason for [...] Date/Time: 04/23/21 1302 Transcribed Date/Time: 04/23/21 1445 [employer] Stillman: DERIC Name Value Range Interpretation Code Description Data Rosanna rce(s) Supporting Document(s) ID Date Data Source [id number] 04/24/2021 09:24:00 AM EDT [facility] Imaging Services Department Imaging Report [address], [place] [address] %(RAD)RES..mtdd.print.filter("line") Name: ROBERT CERDA : 1935 Age/Sex: 85M Ordering Provider: ROSEANNE Green Med Rec #: [id number] Reg Status: [facility] Room #: Date of Service: 04/23/21 Report Number: [id number] cc:Ladan Carrillo MD; ROSEANNE Green Send Report To: [id number] XRP/XR Chest 2 View [Pa & Lat] [...] Date/Time: 04/23/21 0513 Transcribed Date/Time: 04/24/21 09 [employer] Stillman: YURI Name Value Range Interpretation Code Description Data Rosanna rce(s) Supporting Document(s) ID Date Data Source [id number] 04/23/2021 02:42:00 PM [facility] Imaging Services Department Imaging Report [address], [place] [address] %(RAD)RES..mtdd.print.filter("line") Name: ROBERT CERDA SR : 1935 Age/Sex: 85M Ordering Provider: ROSEANNE Green Med Rec #: [id number] Reg Status: [facility]P ER Room #: Date of Service: 04/23/21 Report Number: [id number] cc:Ladan Carrillo MD Send Report To: [id number] CT/CT Head No Contrast Reason for exam: [...] Date/Time: 04/23/21 1302 Transcribed Date/Time: 04/23/21 1442 [employer] Stillman: DERIC Name Value Range Interpretation Code Description Data Rosanna rce(s) Supporting Document(s) ID Date Data Source [id number] 04/23/2021 03:24:00 PM EDT [facility] Name Value Range Interpretation Code Description Data Rosanna rce(s) Supporting Document(s) Electrophoresis Total Protein 6.3-8.2 Ve ry abnormal (applies to non-numeric units [facility] Electrophoresis Albumin 55.8-66.1 Normal (applies to non- numeric results) [facility] Electrophoresis Alpha 1 2.9-4.9 Normal (applies to non- numeric results) [facility] Electrophoresis Alpha 2 7.1-11.8 Normal (applies to non- numeric results) [facility] Electrophoresis Beta 8.4-13.1 Normal (applies to non-num kyle results) [facility] Electrophoresis Gamma 11.1-18.8 Very abnormal (applies to non-numeric units [facility] Electrophoresis Comments Normal (applies to non -numeric results) [facility] Result: Suspicious pattern seen on prote in electrophoresis, immunotyping added by reflex. See scanned/supplementary report. Test performed [place] [address] Immuno Electrophoresis Reflex Normal (applies t o non-numeric results) [facility] Result: Current Interpretation: Negative for monoclonal immunoglobulins. Reviewed by: Williams Benitez MD, PhD 04/21/2021 15:34. Test performed [place] [address] ID Date Data Source [id number] 04/23/2021 03:24:00 PM EDT [facility] Name Value Range Interpretation Code Description Data Rosanna rce(s) Supporting Document(s) Thiamine (Vitamin B1) result 142 nmol/L 70-180 Nor mal (applies to non-numeric results) [facility] ADDITIONAL INFORMATIO N This test was developed and its performance characteristics determined by [facility] in a manner consistent with CLIA requirements. This test has not been cleared or approved by the U.S. Food and Drug Administration. Test Performed by: [facility] [place] [address] Inspector Eyeglass Frames: Robert Jensen M.D. Ph.D.; CLIA# [id number] ID Date Data Source [id number] [facility]/23[facility] Interpretation Code Description Data Rosanna rce(s) Supporting Document(s) LAURO Ab,HEp-2 IgG,S result Normal (applies to no n-numeric results) [facility] REFERENCE VALUE------ <1:80 (Negative) ADDITIONAL INFORMATION Method: Immunofluorescence using HEp-2 cellular substrate. Test Performed by: [facility] [place] [address] Inspector [employer]: Robert Jensen M.D. Ph.D.; CLIA# [id number] ID Date Data Source [id number] 04/23/2021 03:24:00 PM [facility] Value Range Interpretation Code Description Data [facility] rce(s) Supporting Document(s) Vitamin E result 5.5 - 17.0 Normal (applies to non-numeric results) [facility] ADDITIONAL INFORMATIO N This test was developed and its performance characteristics determined by [facility] in a manner consistent with CLIA requirements. This test has not been cleared or approved by the U.S. Food and Drug Administration. Test Performed by: [place] [address] Inspector [employer]ames: Robert Jensen M.D. Ph.D.; CLIA# [id number] ID Date Data Source [id number] 04/23/2021 03:24:00 PM EDT [facility] Name Value Range Interpretation Code Description Data [facility]) Supporting Document(s) Vitamin B6 Result 6 mcg/L 5-50 Normal (applies to non-numeri c results) [facility] ADDITIONAL INFORMATIO N This test was developed and its performance characteristics determined by [facility] in a manner consistent with CLIA requirements. This test has not been cleared or approved by the U.S. Food and Drug Administration. Vitamin B6 Pyridoxic acid Res 9 mcg/L 3-30 No rmal (applies to non-numeric results) [facility] ADDITIONAL INFORMATIO N This test was developed and its performance characteristics determined by [facility] in a manner consistent with CLIA requirements. This test has not been cleared or approved by the U.S. Food and Drug Administration. Test Performed by: [facility] [place] [address] Inspector [employer]: Robert Jensen M.D. Ph.D.; CLIA# [id number] ID Date Data Source [id number] 04/23/2021 03:14:00 PM EDT [facility] Name Value Range Interpretation Code Description Data [facility](s) Supporting Document(s) Electrophoresis Total Protein 6.3-8.2 [facility] Electrophoresis Albumin 55.8-66.1 Normal (applies to non- numeric results) [facility] Electrophoresis Alpha 1 2.9-4.9 Normal (applies to non- numeric results) [facility] Electrophoresis Alpha 2 7.1-11.8 Normal (applies to non- numeric results) [facility] Electrophoresis Beta 8.4-13.1 Normal (applies to non-num kyle results) [facility] Electrophoresis Gamma 11.1-18.8 [facility] Electrophoresis Comments Normal (applies to non -numeric results) [facility] Result: Suspicious pattern seen on prote in electrophoresis, immunotyping added by reflex. See scanned/supplementary report. Test performed [place] [address] Immuno Electrophoresis Reflex Normal (applies t o non-numeric results) [facility] Result: Current Interpretation: Negative for monoclonal immunoglobulins. Reviewed by: Williams Benitez MD, PhD 04/21/2021 15:34. Test performed or referred by The [address] [address] ID Date Data Source [id number] 04/23/2021 03:14:00 PM EDT [facility] Name Value Range Interpretation Code Description Data [facility] rce(s) Supporting Document(s) Thiamine (Vitamin B1) result 142 nmol/L 70-180 Nor mal (applies to non-numeric results) [facility] ADDITIONAL INFORMATIO N This test was developed and its performance characteristics determined by [facility] in a manner consistent with CLIA requirements. This test has not been cleared or approved by the U.S. Food and Drug Administration. Test Performed by: [place] [address] Inspector [employer]: Robert Jensen M.D. Ph.D.; CLIA# [id number] ID Date Data Source [id number] 04/23/2021 03:14:00 PM EDT [facility] Value Range Interpretation Code Description Data [facility]) Supporting Document(s) Vitamin E result 5.5 - 17.0 Normal (applies to non-numeric results) [facility] ADDITIONAL INFORMATIO N This test was developed and its performance characteristics determined by [facility] in a manner consistent with CLIA requirements. This test has not been cleared or approved by the U.S. Food and Drug Administration. Test Performed by: [facility] [place] [address] Inspector [employer]ames: Robert Jensen M.D. Ph.D.; CLIA# [id number] ID Date Data Source [id number] 04/23/2021 03:14:00 PM EDT [facility] Value Range Interpretation Code Description Data Rosanna rce(s) Supporting Document(s) LAURO Ab,HEp-2 IgG,S result Normal (applies to no n-numeric results) [facility] REFERENCE VALUE------ <1:80 (Negative) ADDITIONAL INFORMATION Method: Immunofluorescence using HEp-2 cellular substrate. Test Performed by: [facility] [place] [address] Inspector [employer]ames: Robert Jensen M.D. Ph.D.; CLIA# [id number] ID Date Data Source [id number] 04/23/2021 03:14:00 PM [facility] Value Range Interpretation Code Description Data Rosanna rce(s) Supporting Document(s) Vitamin B6 result 6 mcg/L 5-50 Normal (applies to non-numeri c results) [facility] ADDITIONAL INFORMATIO N This test was developed and its performance characteristics determined by [facility] in a manner consistent with CLIA requirements. This test has not been cleared or approved by the U.S. Food and Drug Administration. Vitamin B6 Pyridoxic Acid res 9 mcg/L 3-30 No rmal (applies to non-numeric results) [facility] ADDITIONAL INFORMATIO N This test was developed and its performance characteristics determined by [facility] in a manner consistent with CLIA requirements. This test has not been cleared or approved by the U.S. Food and Drug Administration. Test Performed by: [facility] [address] [place] [address] Inspector [employer]: Robert Jensen M.D. Ph.D.; CLIA# [id number] ID Date Data Source [id number] 04/18/2021 11:34:00 PM EDT [facility] Name Value Range Interpretation Code Description Data Rosanna rce(s) Supporting Document(s) Vitamin B12 result 424 pg/mL 193-986 Normal (applies to non-numer ic results) [facility] Test Performed By: [place] [address] Director: Meredith Valle MD ID Date Data Source [id number] 04/18/2021 11:34:00 PM EDT [facility] Value Range Interpretation Code Description Data Rosanna rce(s) Supporting Document(s) Folate result 2.76-20.0 Normal (applies to non-numeric re sults) [facility] Test Performed By: [facility] [address] [place] [address] Director: Meredith Valle MD ID Date Data Source [id number] 04/18/2021 11:34:00 PM EDT [facility] Name Value Range Interpretation Code Description Data Rosanna rce(s) Supporting Document(s) RF Rheumatoid Factor result 0.0-15.0 Normal (appli es to non-numeric results) [facility] Test Performed By: [facility] [address] [place] [address] Director: Meredith Valle MD ID Date Data Source [id number] 04/18/2021 07:42:00 PM EDT [facility] Name Value Range Interpretation Code Description Data Rosanna rce(s) Supporting Document(s) Folate 2.76-20.0 Normal (applies to non-numeric resul ts) [facility] Test Performed By: [facility] [address] [place] [address] Director: Meredith Valle MD ID Date Data Source [id number] 04/18/2021 07:42:00 PM EDT [facility] Name Value Range Interpretation Code Description Data Rosanna rce(s) Supporting Document(s) Vitamin B12 424 pg/mL 193-986 Normal (applies to non-numeric resu lts) [facility] Test Performed By: [facility] [address] [place] [address] Director: Meredith Valle MD ID Date Data Source [id number] 04/18/2021 07:42:00 PM EDT [facility] Name Value Range Interpretation Code Description Data Rosanna rce(s) Supporting Document(s) Rheumatoid Factor 0.0-15.0 Normal (applies to non-numeri c results) [facility] Test Performed By: [facility] [address] [place] [address] Director: Meredith Valle MD ID Date Data Source [id number] 04/18/2021 12:34:00 PM EDT [facility] Name Value Range Interpretation Code Description Data Rosanna rce(s) Supporting Document(s) White Blood Count 3.5-10.5 Normal (applies to non-numeri c results) [facility] Red Blood Count 4.30-5.70 Normal (applies to non-numeric results) [facility] Hemoglobin 13.5-17.5 Normal (applies to non-numeric resul ts) [facility] Hematocrit 38.8-50.0 Normal (applies to non-numeric resul ts) [facility] Mean Corpuscular Volume 81.2-95.1 Normal (applies to non- numeric results) [facility] Mean Corpuscular Hgb 25.6-32.2 Normal (applies to non-num kyle results) [facility] Mean Corpuscular Hgb Conc 32.0-36.0 Normal (applies to no n-numeric results) [facility] Red Cell Distribution Width 11.8-15.6 Normal (appli es to non-numeric results) [facility] Platelet Count 194 x10 3/uL 150-450 Normal (applies to non-numeric results) [facility] Mean Platelet Volume 9.4-12.4 Normal (applies to non-num kyle results) [facility] Neutrophils% (Auto) 31.0-71.0 Normal (applies to non-nume dasha results) [facility] Lymphocytes% (Auto) 20.0-55.0 Normal (applies to non-nume dasha results) [facility] Monocytes% (Auto) 4.0-12.0 Normal (applies to non-numeri c results) [facility] Eosinophils% (Auto) 1.0-8.0 Normal (applies to non-nume dasha results) [facility] Basophils% (Auto) 0.0-2.0 Normal (applies to non-numeri c results) [facility] Immature Granulocytes% (Auto) 0.0-2.0 Normal (kristina lies to non-numeric results) [facility] Neutrophils# (Auto) 1.50-6.20 Normal (applies to non-nume dasha results) [facility] Lymphocytes# (Auto) 1.20-4.00 Normal (applies to non-nume dasha results) [facility] Monocytes# (Auto) 0.00-0.90 Normal (applies to non-numeri c results) [facility] Eosinophils# (Auto) 0.00-0.50 Normal (applies to non-nume dasha results) [facility] Basophils# (Auto) 0.00-0.20 Normal (applies to non-numeri c results) [facility] Immature Granulocytes# (Auto) 0.00-7.00 No rmal (applies to non-numeric results) [facility] ID Date Data Source [id number] 04/18/2021 12:34:00 PM EDT [facility] Name Value Range Interpretation Code Description Data Rosanna rce(s) Supporting Document(s) Erythrocyte Sedimentation rate 5 mm/hr 0-15 N ormal (applies to non-numeric results) [facility] ID Date Data Source [id number] 04/18/2021 12:04:00 PM EDT [facility] Name Value Range Interpretation Code Description Data Rosanna rce(s) Supporting Document(s) Thyroid Stimulate Hormone TSH 0.358-3.74 No rmal (applies to non-numeric results) [facility] ID Date Data Source [id number] 04/18/2021 12:04:00 PM EDT [facility] Name Value Range Interpretation Code Description Data Rosanna rce(s) Supporting Document(s) Sodium 143 mmol/L 136-145 Normal (applies to non-numeric resul ts) [facility] Potassium 3.5-5.1 Normal (applies to non-numeric resul ts) [facility] Chloride 104 mmol/L 98-107 Normal (applies to non-numeric resul ts) [facility] Carbon Dioxide CO2 21-32 Normal (applies to non-numer ic results) [facility] Anion Gap 5.0-16.0 Normal (applies to non-numeric resul ts) [facility] BUN 17 mg/dL 7-18 Normal (applies to non-numeric results) [facility] Creatinine,Serum 0.8-1.5 Normal (applies to non-numeric results) [facility] GFR >60 Normal (applies to non-numeric results) [facility] Glucose Level 171 mg/dL 60-99 Above high normal [facility] Reference range is only applicable when patient is fasting Note the following drug interference: Sulfasalazine Sulfapyridine Can see falsely depressed Can see falsely elevated result with up to 17% results with up to 11% decrease in measurement increase in measurement Recommend patients be collected for this test prior to administration of either drug. Calcium 8.5-10.1 Normal (applies to non-numeric resul ts) [facility] Bilirubin,Total 0.1-1.9 Normal (applies to non-numeric results) [facility] SGOT(AST) 15 U/L 15-37 Normal (applies to non-numeric resul ts) [facility] Note the following drug interference: Sulfasalazine Sulfapyridine Can see falsely depressed Can see falsely elevated result with up to 10% results with up to 10% decrease in measurement increase in measurement Recommend patients be collected for this test prior to administration of either drug. SGPT(ALT) 28 U/L 12-78 Normal (applies to non-numeric resul ts) [facility] Note the following drug interference: Sulfasalazine Sulfapyridine Can see falsely depressed Can see falsely elevated result with up to 29% results with up to 10% decrease in measurement increase in measurement Recommend patients be collected for this test prior to administration of either drug. Alkaline Phosphatase 92 U/L 38-126 Normal (applies to non-num ykle results) [facility] can increase Alkaline Phosp le vels up to 2 times the normal adult value. Normal values for children and adolescents are 2 to 3 times the normal adult value. Total Protein 6.0-8.2 Normal (applies to non-numeric re sults) [facility] Albumin Level 3.4-5.0 Normal (applies to non-numeric re sults) [facility] ID Date Data Source [id number] 04/18/2021 11:10:00 AM EDT [facility] Name Value Range Interpretation Code Description Data Rosanna rce(s) Supporting Document(s) Hemoglobin A1c Normal (applies to non-numeric r esults) [facility] Reference Range Normal: < 5.7% Pr ediabetes: 5.7-6.4% Diabetes: > 6.5% Estimated Avg Glucose 131 mg/dL 126-240 Normal (applies to non-numeric results) [facility] ID Date Data Source [id number] FOL 02/19/2021 12:00:00 AM EDT eCW1 (On license of [facility]) Name Value Range Interpretation Code Description Data Rosanna rce(s) Supporting Document(s) 179 VITAMIN B12 LEVEL eCW1 ([facility]) 16.7 FOLATE [facility] ID Date Data Source FREE T4 & TSH PANEL 02/19/2021 12:00:00 AM EDT eCW1 (On license of [facility]) Name Value Range Interpretation Code Description Data Rosanna rce(s) Supporting Document(s) 0.949 0.358-3.740 THYROID STIMULATING HORM ONE eCW1 ([facility]) 0.69 0.76-1.46 FREE T4 [facility]1 [facility] ID Date Data Source Comprehensive Metabolic Profile (CMP) 02/19/2021 12:00:00 AM EDT eCW1 ([facility]) Name Value Range Interpretation Code Description Data Rosanna rce(s) Supporting Document(s) 146 70-100 GLUCOSE, FASTING eCW1 (On license of [facility]) 16 7-18 BLOOD UREA NITROGEN eCW1 ([facility]) 1.10 0.70-1.30 CREATININE FOR GFR eCW1 ([facility]) 4.1 3.5-5.1 POTASSIUM SERUM eCW1 ([facility]) 143 136-145 SODIUM LEVEL eCW1 ([facility]) > 60.0 >35 GLOMERULAR FILTRATION RATE eCW 1 ([facility]) 25 21-32 CARBON DIOXIDE LEVEL eCW1 (Count includes the [facility]) 110 98-107 CHLORIDE LEVEL eCW1 ([facility]) 9.1 8.8-10.2 CALCIUM LEVEL eCW1 ([facility]) 27 12-78 ALT/SGPT eCW1 [facility] 12 7-37 AST/SGOT [facility]CW1 [facility]) 97 45-117 ALKALINE PHOSPHATASE eCW1 (Count includes the [facility]) 5.9 6.4-8.2 TOTAL PROTEIN eCW1 ([facility]) 3.4 3.2-5.2 ALBUMIN eCW1 ([facility] 0.6 0.2-1.0 BILIRUBIN,TOTAL eCW1 ([facility]) 1.4 ALBUMIN/GLOBULIN RATIO eCW1 (Formerly [facility], 1928[facility]1983) ID Date Data Source CBC with Differential 02/19/2021 12:00:00 AM EDT eCW1 (Formerly [facility]) Name Value Range Interpretation Code Description Data Rosanna rce(s) Supporting Document(s) 6.5 4.0-10.0 WHITE BLOOD COUNT eCW1 ([facility]) 14.0 13.5-17.5 HEMOGLOBIN eCW1 ([facility]) 4.59 4.30-6.10 RED BLOOD COUNT eCW1 ([facility]) 42.2 42.0-52.0 HEMATOCRIT eCW1 ([facility]) 91.9 80.0-96.0 MEAN CORPUSCULAR VOLUME e CW1 ([facility]) 30.5 27.0-33.0 MEAN CORPUSCULAR HEMOGLOB IN eCW1 ([facility]) 13.8 11.5-14.5 RED CELL DISTRIBUTION WID TH eCW1 ([facility]) 33.2 32.0-36.5 MEAN CORPUSCULAR HGB CONC eCW1 ([facility]) 59.0 36.0-66.0 NEUTROPHILS % eCW1 ([facility]) 212 150-450 PLATELET COUNT, AUTOMATED eCW1 ([facility]) 5.4 0.0-3.0 EOS % [facility]CW1 [facility] 10.0 2.0-8.0 MONO % eCW1 [facility] 24.0 24.0-44.0 LYMPH % eCW1 [facility] 1.6 1.5-5.0 LYMPH # eCW1 [facility] 3.8 1.5-8.5 NEUTROPHILS # eCW1 ([facility]) 1.1 0.0-1.0 BASO % eCW1 [facility] 0.1 0.0-0.2 BASO # eCW1 [facility] 0.4 0.0-0.5 EOS # eCW1 [facility] 0.7 0.0-0.8 MONO # [facility]CW1 [facility] ID Date Data Source [id number] 10/23/2020 11:58:00 AM EDT [facility] Imaging Services Department Imaging Report [address], [place] [address] %(RAD)RES..mtdd.print.filter("line") Name: RBOERT CERDA : 1935 Age/Sex: 85M Ordering Provider: Dina Golden MD Med Rec #: [id number] Reg Status: [facility] Room #: Date of Service: 10/22/20 Report Number: [id number] cc:Sushila Rubalcava MD Send Report To: [id number] XRP/XR Knee Rt 3 View Reason for [...] rce(s) Supporting Document(s) ID Date Data Source [id number] 10/23/2020 12:04:00 PM EDT [facility] Imaging Services Department Imaging Report [address] [place] [id number] %(RAD)RES..mtdd.print.filter("line") Name: ROBERT CERDA : 1935 Age/Sex: 85M Ordering Provider: Dina Golden MD Med Rec #: [id number] Reg Status: [facility] Room #: Date of Service: 10/22/20 Report Number: [id number] cc:Sushila Rubalcava MD Send Report To: [id number] US/US Dup Lower Ext Artery Rt Reason [...] <Electronically signed by Chad Myers MD> 10/24/20 1159 Dictation Date/Time: 10/22/20 1309 Transcribed Date/Time: 10/23/20 1204 [employer] Stillman: KIM Name Value Range Interpretation Code Description Data Rosanna rce(s) Supporting Document(s) ID Date Data Source [id number] 10/23/2020 11:57:00 AM EDT [facility] Imaging Services Department Imaging Report [address], [place] [address] %(RAD)RES..mtdd.print.filter("line") Name: ROBERT CERDA : 1935 Age/Sex: 85M Ordering Provider: Dina Golden MD Med Rec #: [id number] Reg Status: [facility] ER Room #: Date of Service: 10/22/20 Report Number: [id number] cc:Dina Golden MD; Sushila Rubalcava MD Send Report To: [id number] US/US Duplex Lower Ext Veins Rt Reason [...] Date/Time: 10/22/20 1222 Transcribed Date/Time: 10/23/20 1157 [employer]: PRASHANT Name Value Range Interpretation Code Description Data Rosanna rce(s) Supporting Document(s) ID Date Data Source [facility] SPINE LS COMPLETE 08/27/2020 12:00:00 AM EST eCW1 (Formerly [facility]) Name Value Range Interpretation Code Description Data Rosanna rce(s) Supporting Document(s) [facility] SPINE LS COMPLETE eCW1 ([facility]) ID Date Data Source [facility] Hip,AP,LAT to include Pelvis 08/22/2020 12:00:00 AM EST eCW1 ([facility]) Name Value Range Interpretation Code Description Data Rosanna rce(s) Supporting Document(s) [facility] Hip,AP,LAT to include Pelv is eCW1 ([facility]) ID Date Data Source [facility] Femur 08/22/2020 12:00:00 AM EST eCW1 (On license of [facility]) Name Value Range Interpretation Code Description Data Rosanna rce(s) Supporting Document(s) [facility] Femur eCW1 ([facility] ID Date Data Source UA URINALYSIS 07/09/2020 12:00:00 AM EST eCW1 (On license of [facility]) Name Value Range Interpretation Code Description Data Rosanna rce(s) Supporting Document(s) UA URINALYSIS eCW1 ([facility]) ID Date Data Source [id number] 04/12/2020 05:54:14 PM EDT [facility] Name Value Range Interpretation Code Description Data Rosanna rce(s) Supporting Document(s) Discharge Summary [facility] IGGUAf5uKyPTGeUw78/UAQedWYWcz9XkTUmgCKa9DIxeBGArT1YiAVG3tF1qFYU5YViQKrJpBjKnJVA8 lbm [file] BrANixFrFwQu4XKLFQJ4JSKj== ID Date Data Source [id number] 04/10/2020 12:40:00 PM EDT [facility] ([facility]) Name Value Range Interpretation Code Description Data Rosanna rce(s) Supporting Document(s) Calcium [Mass/volume] in Serum or Plasma 9.2 [facility] ([facility]) Sodium 139 [facility] Chloride [Moles/volume] in Serum or Plasma 105 [facility] ([facility]) Potassium [Moles/volume] in Serum or Plasma 4.2 [facility] ([facility]) Glucose 104 70-140 [facility] ([facility]) Carbon dioxide, total [Moles/volume] in Serum or Plasma 22 [facility] ([facility]) Glomerular filtration rate/1.73 sq M.pre dicted [Volume Rate/Area] in Serum or Plasma by Creatinine-based formula (MDRD) Laboratory test result [facility] ([facility]) Blood Urea Nitrogen 22 8-23 [facility] ([facility]) Creatinine 1.17 0.70-1.20 [facility] ([facility]) ID Date Data Source [id number] 04/10/2020 11:59:03 AM EDT [facility] Name Value Range Interpretation Code Description Data Rosanna rce(s) Supporting Document(s) [facility] KXQICf4bMhXYMnUlz9WqAeZpISFuIY9emmj6S1W4zNAiC6JzuQLnt2lzJ4JeS2DtIPBoFHXREI4DaHWb jb2 [file] HhjkATio9NgjpqpeCFKOaQquaztDGb5H9BInZJoyhZn1240cGJto/systems planner/Vjuwfm/6EydBF1Ipw7stvo4 Qq5+FFoLhV2z80OobrJ6b3srwxTVVPqoWVBlmq3JDt0iB0q2h5GwtsefM6FLa5bwkVYNUXJY5oqP1d/7 3khKkqcxsvI7/Z4ZF4tzQ//48vF/vbz9+BLgP1OGa3 atG0le2m/9/UFv2s1peca8N+JTq77p+di7zz+4NF3PDramIC08Yg+R0kkWk903TX2yaGXoJejVvP6/LF sDn//6m/f/+vLNb77++Pyv74sx294+2rV3T7c45/7dt28/kV6u822+Fq876yEp2eorVk27//dgq5nXA4 69/quQAv7D6LgTHy/42zmw2yqGJvicctj+z09ptrys zef/+tmbD5+/e/PQ+OOvX+Trjy+fv/6Hn4yiO9014n0VN3/46rP/+bmS8eo8p9D2gFvx/vOX91+9//o3 fa8570/vPnv5+HTbg481pNoY98/52DVtS973jFy0173kQewT85s/+TdBZ0319S6fGQN+/B49Elsg8j7/ +ezN+/qveEo99W9Rz27nvs+8+/qzX7/03t5os07bWo D1fpU3f/E60f9Kbx8/+e3Hv/Oxp/mkhrjj9IByH8/3Yk22YalXc/3Lr9++f/nsqy9/8+yM03jMyTlJUx 6672jae76H/IEr8z33zDv4+efO03u55nUGT25+yR751llj2j+0ev+wiLu96MbJD58++fzvMLaKQz/P9N mf/vjvP/z5x+9///Lf//Pl2x/+8Ifv/vzn77/7w89f Pv/ujz98/4eXf/sHGf/2jy9/+iBdqi7A2e/y+uRTn58+HrtXU/b7X8n41ND91b/++Iu/7McaqYOF2YA/ /Ws3nM3Vh7qw/y/A9X/uBuc/Jx2QWSomo7Xt/czNJn41srQ0fwr7+iVLH1EB8/JM77V9rV2M15pO1/zA h+///fsHQ0+0Nc86eipq/bu3j/v5za++zCwemgC34j uH5V8+h4jkUiy74ALRuk6mN/6GHK/yPdd3StBsy3il7+//+Nd/evnzd3/9/tXZH+/1l6zy8/tKs9sWG6 at1hgWn5/wFw9jaiqlL4//8//+r7jN3830L04+r/2+i3/h6zf40k0ri/z+Px7X/sOf/reH223cdP54lY 7zbu340Uc//tf12vo8YhZZDp9ABl5opjisXXvW1lEB dD7+ahM3EVg014l1W5W95Yp60gnYPddd4mB2//P9X/720bnvnMon/+XN+0+eJagez9+wl//08+ ve/El9/94dUdnq/Ah222c65088xxehihA02/rY088DtbqcNJU/3px0+aQ0xqp3sdH/OYi471oPtGf8Qm JUbrHB+//93//WEWm7rqm1dx6bev/pOPrqYj+dG//P Uxr37/6WdvPv/hM8uNdCYkwu+/fCxzX3/K1+nzDf3//8jz/5i+xF7Wv/sf37/Iy5/+/JTvvZMk0KLlKZ 7wx3rw+Bx44kKGj+ea45KZ9DchTa/95RQ0VFQO4rFs9fj1FZolLs67+EM3zR989zj41Z4Lk/a3tJpaex OykAWqZP5DRP9sd5DxTeM9EKFhk2HrKTepTGw4rMWi EFxaydUcd8LfhwnrP8Sxh4EtHvQcJUJwBkZoQoe2QJSbVwM7kJOkMaYpGTKcO9BnGBXbTtQ9HkOmWXFY FW7UNSEusyMeVqEzPVV+JwGyUE4rbwttNFFcx3AcVRrxRJdaSKJkQ1I6dCiaUIJtB8TtcN38YYOyG1Vw oeV6LEA6JLIjQkBhVSHlgWWdVJKxIPJ+HgIoRM2zaf ibLRMcf1HzBYpuWQD6wD4dIIqKKFHZDAkJFWdwZeH2p51dzzMELGGmDCOiTB3OeoJakZybewFysKBsYT A4HuMnAIVfGPMeRIC9MKBSYDIgUQSdKZUvZMZpI3BdeLpxYUaLTZKTLCtTDGbiBwOsk6J3XGOoyiIYGI EfCRKOEOwFKYCLBFJ0EXYsPZNxXC1UbJStRSQ4BSyF PQVHVHvXJLpvBkDpa6X9HZAoZ7AaIIKnaiTjXSLWRLvkRkatRO6qhLfegholG6KvoKNfJMSOSYQsDKZq FLUdGVLjO7Fst1V5S5McTFdDWAELZTtZKOteUvQ2c75qvwPJVCYmYRHqUP1+BF3yq8WrKt2HHZHxJR8q jub5HL3SjNAiYD7KENkzdsKnU3amsjBuEoVoUFDWJT 4vS4GisJ64HOW+YsJvTC2zgbw5tjMhTsJfVQPgRXDtNMKgTLxcNSDgKVQgTZGmVKY6BQW8WTJvDhOmBN TfWxGpUVHkGSLrWZSbmfHHSRMrYGQ1ETRhLgXyGGMsDXCxXNhjVGLhBES0ILy7QFAcOAKnDH9fHgHxXO ZoNWDnDYKiFlM7TpOaIvGXIJBvNVUwWCJvDmXaAISk GTNoIPbbKLRfHDRsWOt4NYFpNVDiSI0tMcIcXVXwCOPnOITfIKSmXMViegEKXYItRFApDOO1CDZfIEHg NTRyLOduSUEjYBTsBBJ6EINuABJrQM7fAmRnSPTaRID4BxBsKUPvMAHqpuCTEMKbURAcPKX1CUIhTVQs ZZSoQTebOTQvEDBiCgI1UGTeUZRcPF0lUtCzKUSsJP O9QKByZTVpRKEpwbEDQBYpVKRrQAr0OuZcFOFmAMLkQQxnVZOoFMTbZCtnIQApMAAcXA8hDnDgQBWxYN JoXXAgMFRdYHLjuxLLVXYpDUTzAJZ5ByMpHWZvPANhZHxeXRXnOLOnOCP0FKNvMAMsPU2gRxPxTWUcHv R2OXJpLXFpOGWrkrBHKXOhIRGwMECgTDMdLGYeICPl FRtzDETfSHMkEwX0LCDdLDClUU4vAyPvDOEpCDD5LNBwLJBnBSSikdRNJLHpEPYrTZNoCBF8FHEmWGCg IEa0pwLfiGXzDle9It7XxBzoQSD0Im5NmaUjRENjPTKMWk9Fo562HBWbVUAINnh+PgpzdGFydHhyZWYK IxP3MOHUJCCSE6U= ID Date Data Source [id number] 04/10/2020 03:08:[address] [facility] Name Value Range Interpretation Code Description Data Rosanna rce(s) Supporting Document(s) Leukocytes [#/volume] in Blood by Automated count 8.0 10*3/uL 4-10 [facility] Erythrocytes [#/volume] in Blood by Automated count 4.72 10*6/uL 4.6- 6.1 [facility] Hemoglobin [Mass/volume] in Blood 14.5 g/dL 13.5-18 [facility] Hematocrit [Volume Fraction] of Blood by Automated count 42.9 % 4 1-53 [facility] Erythrocyte mean corpuscular volume [Entitic volume] by Auto mated count 90.8 fL 80-96 [facility] Erythrocyte mean corpuscular hemoglobin [Entitic mass] by Automated count 30.7 pg 27-33 [facility] Erythrocyte mean corpuscular hemoglobin concentration [Mass/volume] by Automated count 33.8 g/dL 32.0-[facility].0 [facility] width [Ratio] by Automated count 14.6 % 11.5-14.5 H [facility] Platelets [#/volume] in Blood by Automated count 195 10*3/uL 150-400 [facility] ID Date Data Source [id number] 04/10/2020 03:31:42 AM EDT [facility] Name Value Range Interpretation Code Description Data Rosanna rce(s) Supporting Document(s) Bicarbonate [Moles/volume] in Serum 22 mmol/L 22-29 [facility] Chloride [Moles/volume] in Serum or Plasma 105 mmol/L 98-107 [facility] Creatinine [Mass/volume] in Serum or Plasma 1.17 mg/dL 0.70-1.20 [facility] Glucose [Mass/volume] in Serum or Plasma 104 mg/dL 70-140 [facility] Potassium [Moles/volume] in Serum or Plasma 4.2 mmol/L 3.4-5.1 [facility] Hemolyzed Sodium [Moles/volume] in Serum or Plasma 139 mmol/L 136-145 [facility] Urea nitrogen [Mass/volume] in Serum or Plasma 22 mg/dL 8-23 [facility] Anion gap 3 in Serum or Plasma 12 mmol/L 8-15 [facility] Osmolality of Serum or Plasma by calculation 292 mosm/kg 275-300 [facility] Creatinine/Urea nitrogen [Mass Ratio] in Serum or Plasma 19 [facility] Calcium [Mass/volume] in Serum or Plasma 9.2 mg/dL 8.8-10.2 [facility] Glomerular filtration rate/1.73 sq M pre dicted among non-blacks [Volume Rate/Area] in Serum or Plasma by Creatinine-based formula (MDRD) >6 0 [facility] Glomerular filtration rate/1.73 sq M pre dicted among blacks [Volume Rate/Area] in Serum or Plasma by Creatinine-based formula (MDRD) >60 [facility] ID Date Data Source [id number] 04/10/2020 11:17:06 AM [facility] Name Value Range Interpretation Code Description Data Rosanna rce(s) Supporting Document(s) Creatine kinase [Enzymatic activity/volume] in Serum or Plasma 205 U/L 20-200 H [facility] ID Date Data Source [id number] 04/09/2020 01:17:08 PM [facility] Name Value Range Interpretation Code Description Data Rosanna rce(s) Supporting Document(s) History and Physical [facility] AIJTRm0qTvJYIrZp82/AIMieOHSpe9PxNQpzKLa6MUxyDEBfC2NcYTT8qU1aTQB3ESwKAvUvFgTpAGCd [facility] [file] AgICAgICAgICAgICAgICAgICAgICAgICAgICAgICAg VDOpEEWbVEJlEUQnLTRrHBKwFYPlTLQrUKCuSKNhUHEtHEKhOEWpIBEzOULsYNWwXY1FUUEnUFCuREJq ICAgICAgICAgICAgICAgICAgICAgICAgICAgICAgICAgICAgICAgICAgICAgICAgICAgICAgICAgICAg ICAgICAgICAgICAgICAgICAgICAgICAgICAgICAgIA 0KICAgICAgICAgICAgICAgICAgICAgICAgICAgICAgICAgICAgICAgICAgICAgICAgICAgICAgICAgIC UxVUWqJVDlRGUpRTJlPDMuVSLeCNZqWFCpBRFhMMKkPKMgPLAnKPLbNE7GWHOlYJOeLIEuIYVnWILgPF AgICAgICAgICAgICAgICAgICAgICAgICAgICAgICAg CMHrWGQhUXWlMQIkVKFkEKVrLQMfMMIjOUZcPIZjHHBoSFFgOKLwDRSjGUUdTZIrZZHsVC1CENNoDPFc ICAgICAgICAgICAgICAgICAgICAgICAgICAgICAgICAgICAgICAgICAgICAgICAgICAgICAgICAgICAg ICAgICAgICAgICAgICAgICAgICAgICAgICAgICAgIC AuPV0BKDZpWWWaQAJeFJTdOJQrESXfKQOmMAHdJZChGEHiZGZiPUImAWIvXUHqZNFdZTIkJLPwDNPqYE CyPLQmCJPsVVJdEQUpOWMsLPQzSLQcXEVnVKYeBIVqQMVyIJKkTZMxLFYmRX6SLMCuWXFkNJBuBYShAG AgICAgICAgICAgICAgICAgICAgICAgICAgICAgICAg KQMeKWHyTMQqTQKeUSYqIOQvYLQaNLYrEIDiGEEsTPYmYCHvJOLeQUIaJJPsJPXtDENcYTWqZS8LGGYo ICAgICAgICAgICAgICAgICAgICAgICAgICAgICAgICAgICAgICAgICAgICAgICAgICAgICAgICAgICAg ICAgICAgICAgICAgICAgICAgICAgICAgICAgICAgIC LsNVOwYZ5IEROhZTIvGVGsAMHlIGUwIQBiPPKeFAOxYUUzAXXuDFNyYEXpNRCcQIDxKADvCBBbGZZuMV SwUNUbQZRzKMUlGNTuQKOpEGPzTXJaYVWbEUSuIFTuORXjDVRbSIFfTANoNRIoCL5NGNQcDVHtCMGpMI AgICAgICAgICAgICAgICAgICAgICAgICAgICAgICAg FIDaZFCvKJZzQHBzISJaJERcIMFvFRXnCLXbHVSuQVPjRSJaLZSzYBUcEZThLHEbSEEbSXPhJNQmGJ9F EO97dNNxs6Y0RTXmOE7rsrn/Th5CLBeoyfUbkXQrRM0BEoJaBZ3ijb7HLtLlRU4hmz8ATIaHMiFhU3A0 qVIoIYMcCOOTYjGgP90sYIfaKi93XUbtPZSwDgYoKT l3Dl8THcIvY3ftWBDoJvB6ZHJmAuK3UHTaYgJ9FOVoRcLtMJYkZFLkYXQkGKOYOF6ZIyYsJ8ImvA78MQ UNCj4+HWhczvAlQdtAXaXpMZYum6UwTZy1KA5LCQHeShttu3GmVxMgOVOVYUepLY2YEDN3ASVaPVZcEy 6ELQPyZ379vyPtIC1JHr2JKtVlFQ8pys8SBkNiXJKi QtlOAve0KRqmQE9TdSEtDDgDNpEyCronY1OvTOZgJR8fwPScSKCJUEOelCPyNH9zBi9xYUPtBMH2PxE9 NBRXWA0RESTtOPOlsDBxDTXgJJTXMQ9GOTjnONS9UTMkxrRebUGaRIyvVJ7AUWAvgwSeNrMlECSOANf+ Hx5WAO6ow8HnOKxsOrYmAG1fhu6IEObVLjFfT4O6bI YcD6V7BJwgXm6JUYRzGMPiIepkSKOAMCuzYD2HEB9wzqN3VQ3ErTQoQBNsVHThaWFiMAv1F00zqMRnTN ioTO9VTSJ+Pham+Cd9XTPDtRWFwMGGaDsImHUIEPzPlC7GdJ5BNh7ZjE0ZrFL33nTqsooVeAAsjJY9OOZ 3iRNHbCBIZNZ6ZpGAkwJ7nquFxVGCbADEFObNoB00f tSQdQPSnYRG9DQIkJs2TSGVqC9OicwEdvFcsyjEnXDGjVDDDUK0SMFzjekCvbAYhjLlaWH94pXksMJ4J Ln3PFwSxBF9sdz3SqDHhEj6UBOIoZp3OVBFzCQSlASXiZVP0AWYjNsTjFEwiMZWcIYAhNGS4PCPgEITo IX3RKeNqVXZdOvKpGNAsFEWdSIAybm9WTWUuMLVnRo nnWzTcOFMrINMwYNauEHEcBNXbXOK4LRTbZBDtFC6AKgEcVJNcQKEqCensJCPiHVEpcc8XUJNyKEOrSx E0NbKbFKWuTJJlWDseMVGgWQM6JvUnORLlPAZqSQ8YYhZdCCRqGRB7UVyaFLPiCOYkag6FMWMtDDDlNA jjTfXzABCyMXHmKMnlTCFaWAEcLNSaWLNhCGAdTK7C MtWjTWUvYOLgJUHuJMMeZBYbdf1EPRCkWEMcGuN9YaNgHDIaIACoSNtzMUIzPZL4MYV4JMAwLJGqHK1X ChZgBORmWVR8WVUlEHAnPXHior3TJNSeRIErQFmnPpUeHZRpFSNzCKihFGEnPKG3VUTgALHwRNPiZP4X OhFbVDEbVHBwSWSoEEWgYAFavw8HJBFsXNDoEsL3Rs JeITOvROOqRVrbRNInWJY6DpG2XSHcCORhYU6RVbRjRGOaLCl8MwPdUYFqDVTrnu4NTSUbWWZiYYF3Bd NfKKWjJJBgOXopYPNnNLQ8LHn4INLeLLWeOG8MIxGsBMRcPSv5CyNcCVAaNJAent7PVEGmURAnMHG4Tm XoEONjYUZwWWirGEVsEBCoMQw1DXSmPPBdPB4LQuGd LPLvHkM5FLSdSVLlVHPyeo2GEQMiTVPwJNbvWkHeVRVpLNIaUMbsTWXfCFKyGAZ8LMUrOMTyYV0CYyZz BUEhIdL9JHChHSKiVNXckk4JJZPpHZJlHcb2HKDbOSIiRJIfAHoqPMScYKSxHKCuMEOuICPfZM7AKmAz XHRnUuTuZIrwBUUjEHIujr9EmYAqlKyujv6TMSvLIa 0KdZwjGOMyYWnoQd7gdJDpDmPdIKDDGd4BioGwNHKdZNFVSSoqJJTwGVftBhC7AWI2Sku0U7IzMQQ1IJ B6QFYyN2YgUAJ5OMHgNuZ5VQRmRKCeLrKtEHoaASY1Isg5JDKiOuEvTIJvJDKnJcT+DH4qARf+Pg0Kc3 PurgJ7rdBcQMkjKeZzLo3CYHJZU6ZFKv== ID Date Data Source [id number] 04/09/2020 11:46:32 AM EDT [facility] Name Value Range Interpretation Code Description Data Rosanna rce(s) Supporting Document(s) Kaolin activated time [Units/volume] in Blood 263 s [facility] ID Date Data Source [id number] 04/09/2020 10:35:40 AM EDT [facility] Name Value Range Interpretation Code Description Data Rosanna rce(s) Supporting Document(s) [facility] RMPDHi1cCrDQXxJi70/HNWvzSRUkq9FbSAxqIBx8KFudOXSjP9OxOZN0hH0wIQY8YYlWTwUlCiRhVJDn lbm [file] XPVSG1ABWw== ID Date Data Source [id number] 04/09/2020 09:54:18 AM EDT [facility] Name Value Range Interpretation Code Description Data Rosanna rce(s) Supporting Document(s) [facility] BHJTPe1pSaTENsDjp6PoGzJtUYRrPV9ylqf9V7J9pAOjX7CsrVVbr5nyK6LsO8XmWKVkNWYKAK9ZcXGd jb2 [file] 795d/9634G3H/77cj852u/9/EtM85s4/rnV2+uhX6MC62/8vPP3/9Qr84p4b1o1y5//2/f/fCnb//w9t //4+3r7/74x29++OHbb/74j2+/+Ts3302371q//r3Ev/7D25+/l9Zqj0x90Whb+bH1j1+x0z79vv3/uQ HprlbtT3/00U536Hy3lYcu+M1uW74o/OD9+tX/BTi/ kB4w/+q9Jlp5xKLI2fwG9+cvL71ovbg1/jaLuRK3E5++cygt2MS4AjYl+w/vv/05c72DipO69cvdn/df xFvg8ku/62pR589/JMHac973Pi46mTgw4fjfr79k1klf/fv12XDHsEBULMYI/1Ev//rb7//6T28/fPPX b39U+9ijzWs4m+4//YmPaEoPpqP/tPYN/js625rv// XbH/90m6t1Zr9L39+rX/f+PMW/UfvGfvv+q7c//K/XvX/35+9/Zg1XGsaH4kbNF/bbDz/68Zqj41Tyip Bf3+Y/e31R/3d2uDNgB+S8QY5u+fqGA/aRyI+qNoLefnpbG/vNR+8/+vD2zf/59i//+q96CwbOT//lky 8+tzW7ea3+aG//8cO//sNP/r0fxK+/+eOPHnD+CP30 m//1+2/+8t033//k/K1q1+9+Aj5Kev/ham passer//p4+pW6jxVn+yLzb5o359oP/JQwl6mW0YXKFr//f2/f//d 71/85TZdAxzOdM5j11tkuz26b6+++aUiCo5iiv/+/T/++u9/+u6b/8czoYMEbs7383+/++PXMi5vukpy vv//X+9GWJ2fQqu/883/+HRZ4w86k366jypz3anSbm q3mx9HZv/vfvHhNTrcg9+myVF6ohu+Ne6/GmfS+f050c6DZ25Auvbt/4ug1PyIw8fw0/7/BWbiS8DXAE 9om8DzWMWzMfLxZI1gieeoOMJfLI9eigs7N1AmsKagNIhECLGaAo9ztCZfWF3QMHO5JOkgWJFnLMBsA4 KgbD4aQ89mcVKbNgOdCQBMGR3MznY8KQQ1VAR1FCAa WeOmBBXwWP76WOZmOUAVOb1scmYbCejDXsZiDP0pphw3U4P6hMWlJ419xNhgknBjXD6Yz3BrcUMtEC8O iSHhnGQbZHSnPCXrC2gyy3RmIOolVTZAEe3oebRjUiaNSfVvKN9hvzf8F1G3qDxgjnAyKGAISOmeFszo AN1vnBoybxguA1OdxUUyOQRcY0GyLGUfi53LTJRvKM yTGpPmKdIhCINrYDm0PLziHuHpQOOdDHZqZVMlXK8IvLSeVIAaAZJPUDkgAumcLIPkcU3wsJRWd5TuSX ITMwbrK6tVTMpSFZZiGWziZFa8JQUaH5JnuxLwwZSyRSBNWBkzWnvuVIRcrV1vfJflN5VgTXI2n8TaDV 1XA2JlJSOzPIRQTBW1g4HaVNWzjlasugrdAjMiSOMt SHIcJHQiOP3Vqp0yfIOmclFbFXVRIKdyJwsiAG6gpQoshhziY4EytQQjMMK+LkFfUJ0vyg0+CjEgMCBv Qqx1ZRTkDLmzJZEqRSWcNYTtG5chEKVuXaEgSDZaUhQvVU4Zg6RrrYYiUy6mhwCzEcbWqBCzVhqmTZKn HFUtDLUnVeXMXPFhCWWgQGHsWUX6VRRmTSAlEPiaQN FoSIN7RuVxTKDyTXCbWU1hUjWrWCOgDdV9EyYfPPDeMMUqsmWMSUGlVZR7EGufFBIrKYTvFPNjRUfqKM ApMHDiLOYnJZB2BVH4UMNiXqFaUPPzKNKfCZLfEJMeLOUutzLZAMAmDZQeBBB7AJSlODNbELGyOOujFJ OkNIVwGCodUUGmILSaLN3iWbKqRLPsCCKmHKfmKMVa TYGzwaGKGAChVZGhIXOjGJEuJIMaXIAuBVevJCPoVWVgVYHbZLViBQBtSK2oTsQzXVKcXSV2GGAeFQYj JSXriaLCJNGwEAMlVTu4OEKuMONgYSWjOTpqNXMgUJEpPEF7PEYoCQMwPE6nJvXmXNPjZHX7ObLnVMGl BMAipdEJCIBaABDgNLO2YkIjIHIhDGNsTVclNKIsPE ViBBpcNQCxJUIfVN4fDuWwCZRbAQBiVVasXLYlZQKkrlASCDDjDJOlBLBkJmXyNMFsXNLiJZaqLIKkNG L8ZiQ6WZBsSSOnHI0xLaRoYNDiXVH0XLorUOHuIKZhaiVYTUNnJBIsFWzzCAMpOZUoKNCpEJfwPFZeSM EqPYA0JJVrWYFwWF3tUkMlUPMdBILcVKKxZvA4LzVe TkXZvNGlwJfzvqt2RRblN0a3CWTpOEfvSV9jwjNmRPDmAcpyOg1ajNQ2EKUyWlfUDk7Xr0MujjM0euFp LnX6JwB0XrIwFB0Q ID Date Data Source [id number] 04/09/2020 08:48:34 AM [facility] Name Value Range Interpretation Code Description Data Rosanna rce(s) Supporting Document(s) Heparin unfractionated [Units/volume] in Platelet poor plasma by Chrom[facility] [id number] 04/09/2020 01:56:24 AM [facility] Name Value Range Interpretation Code Description Data Rosanna rce(s) Supporting Document(s) Heparin unfractionated [Units/volume] in Platelet poor plasma by Chromogenic method 0.45 U/ml [facility] al ID Date Data Source [id number] 04/09/2020 02:04:11 AM [facility] Name Value Range Interpretation Code Description Data Rosanna rce(s) Supporting Document(s) Bicarbonate [Moles/volume] in Serum 21 mmol/L 22-29 L [facility] Chloride [Moles/volume] in Serum or Plasma 103 mmol/L 98-107 [facility] Creatinine [Mass/volume] in Serum or Plasma 1.04 mg/dL 0.70-1.20 [facility] Glucose [Mass/volume] in Serum or Plasma 126 mg/dL 70-140 [facility] Potassium [Moles/volume] in Serum or Plasma 3.8 mmol/L 3.4-5.1 [facility] Sodium [Moles/volume] in Serum or Plasma 136 mmol/L 136-145 [facility] Urea nitrogen [Mass/volume] in Serum or Plasma 19 mg/dL 8-23 [facility] Anion gap 3 in Serum or Plasma 12 mmol/L 8-15 [facility] Osmolality of Serum or Plasma by calculation 286 mosm/kg 275-300 [facility] Creatinine/Urea nitrogen [Mass Ratio] in Serum or Plasma 18 [facility] Calcium [Mass/volume] in Serum or Plasma 8.7 mg/dL 8.8-10.2 [facility] Glomerular filtration rate/1.73 sq M pre dicted among non-blacks [Volume Rate/Area] in Serum or Plasma by Creatinine-based formula (MDRD) >6 0 [facility] Glomerular filtration rate/1.73 sq M pre dicted among blacks [Volume Rate/Area] in Serum or Plasma by Creatinine-based formula (MDRD) >60 [facility] ID Date Data Source [id number] 04/09/2020 05:05:57 AM [facility] Value Range Interpretation Code Description Data Rosanna rce(s) Supporting Document(s) Prothrombin time (PT) 14.0 s 12.5-14.9 [facility] INR in Platelet poor plasma by Coagulation assay 1.06 [facility] Routine intensity oral anticoagulation I NR is typically 2.0-3.0. Target INR must be clinically individualized. ID Date Data Source [id number] [facility] Interpret[facility] Code Description Data Rosanna rce(s) Supporting Document(s) Heparin unfractionated [Units/volume] in Platelet poor plasma by Chromogenic method 0.56 U/ml [facility] ID Date Data Source [id number] 04/08/2020 07:06:35 AM [facility] Value Range Interpretation Code Description Data Rosanna rce(s) Supporting Document(s) Leukocytes [#/volume] in Blood by Automated count 7.7 10*3/uL 4-10 [facility] Erythrocytes [#/volume] in Blood by Automated count 4.91 10*6/uL 4.6- 6.1 [facility] Hemoglobin [Mass/volume] in Blood 15.0 g/dL 13.5-18 [facility] Hematocrit [Volume Fraction] of Blood by Automated count 44.3 % 4 1-53 [facility] Erythrocyte mean corpuscular volume [Entitic volume] by Auto mated count 90.3 fL 80-96 [facility] Erythrocyte mean corpuscular hemoglobin [Entitic mass] by Automated count 30.6 pg 27-33 [facility] Erythrocyte mean corpuscular hemoglobin concentration [Mass/volume] by Automated count 33.9 g/dL 32.0-36.0 [facility] Erythrocyte distribution width [Ratio] by Automated count 14.3 % 11.5-14.5 [facility] Platelets [#/volume] in Blood by Automated count 206 10*3/uL 150-400 [facility] ID Date Data Source [id number] 04/08/2020 07:19:15 AM [facility] Value Range Interpretation Code Description Data Rosanna rce(s) Supporting Document(s) Prothrombin time (PT) 13.0 s 12.5-14.9 [facility] INR in Platelet poor plasma by Coagulation assay 0.97 [facility] Routine intensity oral anticoagulation I NR is typically 2.0-3.0. Target INR must be clinically individualized. ID Date Data Source [id number] 04/08/2020 07:37:02 AM [facility] Name Value Range Interpretation Code Description Data Rosanna rce(s) Supporting Document(s) Heparin unfractionated [Units/volume] in Platelet poor plasma by [facility] Data Source [id number] 04/08/2020 09:18:37 AM [facility] Name Value Range Interpretation Code Description Data Rosanna rce(s) Supporting Document(s) Bicarbonate [Moles/volume] in Serum 22 mmol/L 22-29 [facility] Chloride [Moles/volume] in Serum or Plasma 102 mmol/L 98-107 [facility] Creatinine [Mass/volume] in Serum or Plasma 1.07 mg/dL 0.70-1.20 [facility] Glucose [Mass/volume] in Serum or Plasma 117 mg/dL 70-140 [facility] Potassium [Moles/volume] in Serum or Plasma 4.1 mmol/L 3.4-5.1 [facility] Sodium [Moles/volume] in Serum or Plasma 135 mmol/L 136-145 L [facility] Urea nitrogen [Mass/volume] in Serum or Plasma 17 mg/dL 8-23 [facility] Anion gap 3 in Serum or Plasma 11 mmol/L 8-15 [facility] Osmolality of Serum or Plasma by calculation 283 mosm/kg 275-300 [facility] Creatinine/Urea nitrogen [Mass Ratio] in Serum or Plasma 16 [facility] Calcium [Mass/volume] in Serum or Plasma 8.8 mg/dL 8.8-10.2 [facility] Glomerular filtration rate/1.73 sq M pre dicted among non-blacks [Volume Rate/Area] in Serum or Plasma by Creatinine-based formula (MDRD) >6 0 [facility] Glomerular filtration rate/1.73 sq M pre dicted among blacks [Volume Rate/Area] in Serum or Plasma by Creatinine-based formula (MDRD) >60 [facility] ID Date Data Source [id number] 04/08/2020 09:18:37 AM [facility] Value Range Interpretation Code Description Data Rosanna rce(s) Supporting Document(s) Magnesium [Mass/volume] in Serum or Plasma 1.9 mg/dL 1.6-2.4 [facility] ID Date Data Source [id number] 04/08/2020 09:18:37 AM [facility] Value Range Interpretation Code Description Data Rosanna rce(s) Supporting Document(s) Troponin T.cardiac [Mass/volume] in Serum or Plasma 0.25 ng/mL <0.01 [facility] No Significant Change since last result called ID Date Data Source [id number] 04/07/2020 07:21:40 PM [facility] Value Range Interpretation Code Description Data Rosanna rce(s) Supporting Document(s) Heparin unfractionated [Units/volume] in Platelet poor plasma by Chromogenic method 0.25 U/ml [facility] ID Date Data Source [id number] 04/07/2020 07:55:53 PM [facility] Value Range Interpretation Code Description Data Rosanna rce(s) Supporting Document(s) Troponin T.cardiac [Mass/volume] in Serum or Plasma 0.28 ng/mL <0.01 [facility] No Significant Change since last result called ID Date Data Source [id number] 04/07/2020 04:49:04 PM [facility] Value Range Interpretation Code Description Data Rosanna rce(s) Supporting Document(s) History and Physical [facility] DRGUDi2cZpNJNeXp39/HWIsqCQRoc1UoAFvsQMw8LKxgYHCuI5BoQLN0iV6nZWB2GIgBNuLrZrXrSRMy lbm [file] AgICAgICAgICAgICAgICAgICAgICAgICAgICAgICAgICAgICAgICAgICAgICAgICAgICAgICAgICAgIC AgICAgICAgICAgICAgICAgICAgDQogICAgICAgICAgICAgICAgICAgICAgICAgICAgICAgICAgICAgIC AgICAgICAgICAgICAgICAgICAgICAgICAgICAgICAg ICAgICAgICAgICAgICAgICAgICAgICAgICAgICAgDQogICAgICAgICAgICAgICAgICAgICAgICAgICAg ICAgICAgICAgICAgICAgICAgICAgICAgICAgICAgICAgICAgICAgICAgICAgICAgICAgICAgICAgICAg ICAgICAgICAgICAgDQogICAgICAgICAgICAgICAgIC AgICAgICAgICAgICAgICAgICAgICAgICAgICAgICAgICAgICAgICAgICAgICAgICAgICAgICAgICAgIC AgICAgICAgICAgICAgICAgICAgICAgDQogICAgICAgICAgICAgICAgICAgICAgICAgICAgICAgICAgIC AgICAgICAgICAgICAgICAgICAgICAgICAgICAgICAg ICAgICAgICAgICAgICAgICAgICAgICAgICAgICAgICAgDQogICAgICAgICAgICAgICAgICAgICAgICAg ICAgICAgICAgICAgICAgICAgICAgICAgICAgICAgICAgICAgICAgICAgICAgICAgICAgICAgICAgICAg ICAgICAgICAgICAgICAgDQogICAgICAgICAgICAgIC AgICAgICAgICAgICAgICAgICAgICAgICAgICAgICAgICAgICAgICAgICAgICAgICAgICAgICAgICAgIC AgICAgICAgICAgICAgICAgICAgICAgICAgDQogICAgICAgICAgICAgICAgICAgICAgICAgICAgICAgIC AgICAgICAgICAgICAgICAgICAgICAgICAgICAgICAg ICAgICAgICAgICAgICAgICAgICAgICAgICAgICAgICAgICAgDQogICAgICAgICAgICAgICAgICAgICAg ICAgICAgICAgICAgICAgICAgICAgICAgICAgICAgICAgICAgICAgICAgICAgICAgICAgICAgICAgICAg ICAgICAgICAgICAgICAgICAgDQogICAgICAgICAgIC AgICAgICAgICAgICAgICAgICAgICAgICAgICAgICAgICAgICAgICAgICAgICAgICAgICAgICAgICAgIC BnYHKzPPHuEIUjVYIxRIDjWSTkPTDhJXWxTCKtUZf3Q9fmKAVtICCdIR6gRYu1Ro1+SWpFLgZoABX3ho PmgY1EBR5ca9IsNCqyVBSfi0JqYGm3YC5IBYTtIQwa TL5VPDnxep3UOPUmGGPzzNYAc0swBoVjPKG5FPQuIttnVQ4RSZSwB1ruwkWgGQMnCYISTBsaQXPTGSha NUOPGUGgPWWbXxPdBUxcHO0Ot1IbwSM5EVr+Nm8PAA8pg1GdWKffUuVoZL9lil7BBMdHVsXmU3KcoxE8 YKHnTBRqZy8DYFAtLOUtwBHkCvYhPSNTOhNvX8AykQ 17TXHGTc7+ZTovssMsKwwKAvTsHYMza7WlNZm0NP5GKLSrPGr1yOQjEFVAQGI8ABYoC5boPFneZDRRii 75iWPcRAUUOtHajMYdCD1kIE7lIGPdAIZqOtT9TZXWSJ4LBNFuRXLnuLNrUPJgYCZLGU7RLAvdPQN4XF OxnjPziNGiNUosYA5GZIEjryVrOzAbILZXSKo+Pg0K LV5kh9TmMRgoBdUnJA2oyf5SAMbYHrFcG9I4mDDcU8Zxrk68EZ6PxCK8cGOeED8XbK1cLT5Rs7AaLSTd OpDxJSSgCTOoCNCrWHDcFfZlTL8WFHObHuBvaPSrNWXoIAx1MSP5QAI6RlDsTZ8BCHFnOKF2UY3MVM7C ZdzqO7KPSNsxyKNoteelP2d0lb3diKqhhq4rw28lJ9 hhLZPeci4rX8A/XjxgOC3dVaOoLPThQCT4bYp4xArzpVydClRQzGQ8UzVtTXVSRGphFPAsuSskjFbcSV y7MCBeNfPyrN4vTGPdX4CvcLT9REvjFo9vVVz+Wc0DPM7nx0GcDCzkWMHbFW0yqw1HDCkRQhXhS4J5lC YeH2H7AQwfRa0YMJGwRCXfQpMgFKPRNJykJW0IPX1p jdJ5DL3IzXElBTBhVCWsjLMtGLp6X30cxHRvCYyaII1QPNK+Pham+Qw3OEYMcUPPkFOSiJvAgCMRSTsDe U5QzS8ERp5TxC2TgLS23bPgmelZsJTdhLX3CZE4rGTGzVBGPSV5GjWSjqI4sxqQdVqBcHNLPZoHgU27p uYPeDQWlPCYiPYMcHe0ZKENiK7EsfaRuaQycskQvYR IhATHIAX0TGKdwzmOapVZmmDbdOH35dEtrEL2BAf5UNfPaUD6ocb2RdZLuCs3NZBLhBL0JDZQhAXCtIO UoLIS0VAFwFxCvSLksAKLuFTRhSYS0ZQWcRPYiWM5OOaRkAVFhOoW5QPRbRLDuYQMjrj0OPCRiTFDbZk CvGmTjMUSqSCCdYOkjUNCjZKAhGVL1OUMbDGWcFM4B PbVjNWKnJZSgTNVnKYHwMCNujv0TGUCuKZYlTHP4FWKnSQUmILVdUCjsRWGxWHV5TWnbFIEeKTOwAV2X KdFxEHBsKKvnDDFdBTSqIZBejq1HKTWvPLPqZXa5ThBpEKLkMLQsDZytTFLsZSYsQSL7XFZfKOQnSF9V UcCiIFDcRCS5MEYmCEQzDIQjdu2YZXQyKDMoEipiSj MqFBDcVVLtDJnwCNVrUCSiQSagKXApPFMuUS1WZhGdZRIrFTE0FBLzBUIiMGVhpg1MIQBrCCDqJIZ8ZM PyPXWhKTZbXWsoVYVxBNF6TcZgAPPpSYKwEF0RIaMaVXWeTOPyGRJcRBExKPUwkj6RRYWyWANjADK1UY VhCMGtKWJaAQhtTKTjVPV3ValgEPGjJCSyTL1JDzLn MAZgEYY2ZIQgICMbQAYhat7VLSIgAWTwWzdfTVWdNXEbOIQySDbjRWHpLEE7FFStSIKnNLWnHL2FHaYp MCNhCve5TTytYPIxYIWpkd8XPKJoJYUsYCcjNNYfNSQsRKEuFOzbMSJiRVU9PMQ8HCBtIZGnXI9AKrPa TYXoRenoBkJfVWZbXSAzdg8QPYXiORSnWDNeKLKbTC UdPQGnCSlvBXIqPJWaQnPhAWFwFCGoBT8VCbGcJRGiGuK8JNUhBUAzNCMagu2SUTDhQZXiECJbFBMeIE GdDFBuMHrjPHXkDAIqSITjJTLxVGIaQK9KRgFjNACyIrK2IGhdIDXnNOAfsy2UFXPwXAEwGtA7VJCeJW VrSLIoWAejSUFrXOEoLPw8ICRqVHDmON6YHhHmVGsn QSHJIvj8WCvqI5n9JSFiJH0LF9Mrl5HhWhLsYFHYYAofDS6aqaEdIPNbBd6TI5rWEgw0MSHlIMZrC6Hp OOAmXss9FGP3IBQ5Vkz5DjNaFFTcOq9nHVL9BtKvDmLeDrV5JsSbLZTuUalqFqKqQBchCVViWJQrLdTq VI2OPv8AWxE9WEV6vTDgIz9LUyZbHPyALvRxKM7GJNj= ID Date Data Source [id number] 04/07/2020 01:02:00 PM EDT [facility] ([facility]) Name Value Range Interpretation Code Description Data Rosanna rce(s) Supporting Document(s) Triglycerides 156 [facility] ([facility]) Cholesterol Laboratory test result 120-200 [facility] ([facility]) Cholesterol in LDL [Mass/volume] in Serum or Plasma by calculation 80 [facility] ([facility]) Chol/HDL Ratio Laboratory test result [facility] ([facility]) HDL 38 40-60 [facility] ([facility]) ID Date Data Source [id number] 04/07/2020 01:02:00 PM EDT [facility] ([facility] [place] [facility]) Name Value Range Interpretation Code Description Data Rosanna rce(s) Supporting Document(s) Carbon dioxide, total [Moles/volume] in Serum or Plasma 24 [facility] ([facility]) Chloride [Moles/volume] in Serum or Plasma 102 [facility] ([facility]) Calcium [Mass/volume] in Serum or Plasma 8.6 [facility] ([facility]) Sodium 135 [facility] Blood Urea Nitrogen 15 5-21 [facility] (Ca [facility]) Potassium [Moles/volume] in Serum or Plasma 4.1 [facility] ([facility]) Glucose 114 70-100 [facility] ([facility]) Creatinine 1.01 0.6-1.5 [facility] ([facility]) Glomerular filtration rate/1.73 sq M.pre dicted [Volume Rate/Area] in Serum or Plasma by Creatinine-based formula (MDRD) Laboratory test result [facility] ([facility]) ID Date Data Source [id number] 04/07/2020 01:02:00 PM EDT [facility] ([facility] Name Value Range Interpretation Code Description Data Rosanna rce(s) Supporting Document(s) White Blood Count 5.5 4.3-10.9 [facility] ([facility]) Hemoglobin 14.3 13.0-17.0 [facility] ([facility]) Red Blood Count Laboratory test result 4.70-6.20 [facility] ([facility]) Platelets 181 130-400 [facility] ([facility]) Hematocrit 42.6 39.0-50.0 [facility] ([facility]) ID Date Data Source [id number] 04/07/2020 02:36:51 PM EDT [facility] Name Value Range Interpretation Code Description Data Rosanna rce(s) Supporting Document(s) Cholesterol [Mass/volume] in Serum or Plasma 150 mg/dL <200 [facility] Triglyceride [Mass/volume] in Serum or Plasma 156 mg/dL <150 H [facility] Cholesterol in HDL [Mass/volume] in Serum or Plasma 38 mg/dL >40 L [facility] Cholesterol in LDL [Mass/volume] in Serum or Plasma by calcu lation 80 mg/dL <100 [facility] Cholesterol in VLDL [Mass/volume] in Serum or Plasma by calc ulation 31 mg/dl 16-42 [facility] Cholesterol non HDL [Mass/volume] in Serum or Plasma 111 mg/dL <130 [facility] ID Date Data Source [id number] 04/07/2020 02:36:51 PM [facility] Name Value Range Interpretation Code Description Data Rosanna rce(s) Supporting Document(s) Magnesium [Mass/volume] in Serum or Plasma 1.9 mg/dL 1.6-2.4 [facility] ID Date Data Source [id number] 04/07/2020 02:36:51 PM [facility] Value Range Interpretation Code Description Data Rosanna rce(s) Supporting Document(s) Troponin T.cardiac [Mass/volume] in Serum or Plasma 0.35 ng/mL <0.01 [facility] Results called to and read back by ORTEGA VACA RN [id number] ID Date Data Source [id number] 04/07/2020 02:36:51 PM [facility] Value Range Interpretation Code Description Data Rosanna rce(s) Supporting Document(s) Bicarbonate [Moles/volume] in Serum 24 mmol/L 22-29 [facility] Chloride [Moles/volume] in Serum or Plasma 102 mmol/L 98-107 [facility] Creatinine [Mass/volume] in Serum or Plasma 1.01 mg/dL 0.70-1.20 [facility] Glucose [Mass/volume] in Serum or Plasma 114 mg/dL 70-140 [facility] Potassium [Moles/volume] in Serum or Plasma 4.1 mmol/L 3.4-5.1 [facility] Hemolyzed Sodium [Moles/volume] in Serum or Plasma 135 mmol/L 136-145 L [facility] Urea nitrogen [Mass/volume] in Serum or Plasma 15 mg/dL 8-23 [facility] Anion gap 3 in Serum or Plasma 9 mmol/L 8-15 [facility] Osmolality of Serum or Plasma by calculation 282 mosm/kg 275-300 [facility] Creatinine/Urea nitrogen [Mass Ratio] in Serum or Plasma 15 [facility] Calcium [Mass/volume] in Serum or Plasma 8.6 mg/dL 8.8-10.2 L [facility] Glomerular filtration rate/1.73 sq M pre dicted among non-blacks [Volume Rate/Area] in Serum or Plasma by Creatinine-based formula (MDRD) >6 0 [facility] Glomerular filtration rate/1.73 sq M pre dicted among blacks [Volume Rate/Area] in Serum or Plasma by Creatinine-based formula (MDRD) >60 [facility] ID Date Data Source [id number] 04/07/2020 02:37:15 PM [facility] Value Range Interpretation Code Description Data Rosanna rce(s) Supporting Document(s) Prothrombin time (PT) 13.1 s 12.5-14.9 [facility] TEST ADDED AT UNIT'S REQUEST INR in Platelet poor plasma by Coagulation assay 0.99 [facility] Routine intensity oral anticoagulation I NR is typically 2.0-3.0. Target INR must be clinically individualized.TEST ADDED AT UNIT'S REQUEST ID Date Data Source [id number] 04/07/2020 02:37:15 PM [facility] Value Range Interpretation Code Description Data Rosanna rce(s) Supporting Document(s) Heparin unfractionated [Units/volume] in Platelet poor plasma by Chromogenic method [facility] al ConfirmedTEST ADDED AT UNIT'S REQUEST ID Date Data Source [id number] 04/07/2020 02:48:24 PM [facility] Value Range Interpretation Code Description Data Rosanna rce(s) Supporting Document(s) Leukocytes [#/volume] in Blood by Automated count 5.5 10*3/uL 4-10 [facility] Erythrocytes [#/volume] in Blood by Automated count 4.67 10*6/uL 4.6- 6.1 [facility] Hemoglobin [Mass/volume] in Blood 14.3 g/dL 13.5-18 [facility] Hematocrit [Volume Fraction] of Blood by Automated count 42.6 % 4 1-53 [facility] Erythrocyte mean corpuscular volume [Entitic volume] by Auto mated count 91.3 fL 80-96 [facility] Erythrocyte mean corpuscular hemoglobin [Entitic mass] by Automated count 30.6 pg 27-33 [facility] Erythrocyte mean corpuscular hemoglobin concentration [Mass/volume] by Automated count 33.5 g/dL 32.0-36.0 [facility] E[facility] distribution width [Ratio] by Automated count 14.1 % 11.5-14.5 [facility] Platelets [#/volume] in Blood by Automated count 181 10*3/uL 150-400 [facility] ID Date Data Source [id number] 04/07/2020 10:56:11 AM EDT [facility] Name Value Range Interpretation Code Description Data Rosanna rce(s) Supporting Document(s) Progress Note [facility] KEJMVl9hBkEXEiRj80/JPEuuWBPzh9TvGThwEDb3OXtiQMCuX7GuFOL3nK7jIIA1RWyDEaPoTnYaQVGz lbm [file] ICAgICAgICAgICAgICAgICAgICAgICAgICAgICAgICAgICAgICAgICAgICAgICAgICAgICAgICAgICAg ICAgICAgICAgICAgICAgICAgICAgICAgICAgICAgDQogICAgICAgICAgICAgICAgICAgICAgICAgICAg ICAgICAgICAgICAgICAgICAgICAgICAgICAgICAgIC AgICAgICAgICAgICAgICAgICAgICAgICAgICAgICAgICAgICAgICAgDQogICAgICAgICAgICAgICAgIC AgICAgICAgICAgICAgICAgICAgICAgICAgICAgICAgICAgICAgICAgICAgICAgICAgICAgICAgICAgIC AgICAgICAgICAgICAgICAgICAgICAgDQogICAgICAg ICAgICAgICAgICAgICAgICAgICAgICAgICAgICAgICAgICAgICAgICAgICAgICAgICAgICAgICAgICAg ICAgICAgICAgICAgICAgICAgICAgICAgICAgICAgICAgDQogICAgICAgICAgICAgICAgICAgICAgICAg ICAgICAgICAgICAgICAgICAgICAgICAgICAgICAgIC AgICAgICAgICAgICAgICAgICAgICAgICAgICAgICAgICAgICAgICAgICAgDQogICAgICAgICAgICAgIC AgICAgICAgICAgICAgICAgICAgICAgICAgICAgICAgICAgICAgICAgICAgICAgICAgICAgICAgICAgIC AgICAgICAgICAgICAgICAgICAgICAgICAgDQogICAg ICAgICAgICAgICAgICAgICAgICAgICAgICAgICAgICAgICAgICAgICAgICAgICAgICAgICAgICAgICAg ICAgICAgICAgICAgICAgICAgICAgICAgICAgICAgICAgICAgDQogICAgICAgICAgICAgICAgICAgICAg ICAgICAgICAgICAgICAgICAgICAgICAgICAgICAgIC AgICAgICAgICAgICAgICAgICAgICAgICAgICAgICAgICAgICAgICAgICAgICAgDQogICAgICAgICAgIC AgICAgICAgICAgICAgICAgICAgICAgICAgICAgICAgICAgICAgICAgICAgICAgICAgICAgICAgICAgIC AgICAgICAgICAgICAgICAgICAgICAgICAgICAgDQog ICAgICAgICAgICAgICAgICAgICAgICAgICAgICAgICAgICAgICAgICAgICAgICAgICAgICAgICAgICAg EUNaGYHxKYQcNQDwEXQkUYLzXQHwMOJuYKZzCLCeGRAjKJDhSLKnETu2S4bdGLEvGHAnGB8dONf3Ru6+ BCoSQoJnEDL0ujYztG9DJQ6vb0NsEWgnXGIlo3WiWX w4SV7OLYOuHYdyPJ6XUClork4XRUXyVZMgpHZOa0nwTuBmMCW7YKLmAqsrVI6HTCAwC7xeniEkPKDfOZ XKQO9RHoRrV8QuaZ64FPEUZe5+DDkomdTtPoqRPtK0ZKGfb5OwOLg8DG4WTJDlDsbcj4CdIVSvXUSKFB fvRN5VDWT2TNF0UODjDc4INDViI196yyKeMV5ILn0Q FzOpOW2vmu8PVYXzFCIkKwtJYrf6DGeoXC7DaETjSMuDym7motGdwxOLo4FdwgZpgNYNHFEqe9KxPTZP SAAwwQEvNWOYOeLdlYDxEA1sXJ2zAHBfOEAwQvC0TFMTXV4MWTTjCYNnhGRtMSLeJOJBPP1LDJslWOP0 OAHgvuZkjPQiZMiaUM1BLGApynOiSUTaNEHNRGn+Pg 4OEZ8kt3YzUVelXlHmKM0sip0QCHiTWsWkH9N3gWZuX7Y8FRgxPh8PTKQaHUQjKNMpANCZNOxcGV3SZP 1itkR6UX5BoWNeOABdQMUwjQYmUNb8E28rzWXlZZqtVW6AQAA+Pham+Hx6KWCRzFIHtUCXwStChLTPLBw SgK3KxQ9JDf1QqE2UtWU69tVubewIrGGacUJ0JGM1r HHYaMPGESR1ZcICifD6nkwYsRDDjUXUXNfJmX84tbGElYZNvAGYvMEXmWx1EDHCjX2EhddTpuSufdrIu SQMcOBARDN0JDDtmqiWzpNYabPixIM50pQzvCS0GAu7KLpLySG2nxr8HzQQmBt1OFRRwJa2MYVAbLGXz JYEsFDO2SZSvVwNgMAmwMXIoIYTzZFN8RIXmMLViAP 6NFzEcDOKnNBA1GGHdTZWdJJPviq3JLJJeYTEzZjDiRyGqNQEmQAIjDZyyWJFmPPOrSYM9CVThFOTiPN 9LCtPhXABbPNN1CwTfRUNkVRSmpo0MCDQyNPToGMl7DyFrSPJmYXPcRXieWCRnMPNzMcY2WBRsCDDvHF 9WPgLlCOXbAKB6XuHfZSCvUNXysp9IMLUwRYHqOuCr UjOcSDMnAJXhLVpgKCGgOAS4WQheMMIsQSAhXP5TWiOyZOWpZJQjRoBoDHYjODYdlx3HWYAkGGVqLRP2 QYQfUIApYGSbUHcjCANcMUQ2ZMCoGTAxJPPrYD6YTuNaKAStZSUhJAIxEWUrLHCrzq1IMVZdNMTiVgE1 DtRuPMPrSHJqDTudCOGgOCX0WAI8FEPmHXCyRO9SPt IkYLjdWHCVYbu6AAyrW9y4TZIbGs6AL8Qqv7UoAERtOAPQNNgaKS3vyjUdXGItTo6VS4hSMuudNdL2Sn Y4OMTlAAYaIWE8KVq9HLRoADBmUwZjLmN0Nm1tNLHuMbVaBkV2QnSoYtW2KWF0XGKdUBEtHWU2RvI3NJ P2JmRqYK5NUo4ILkM0ZAU8jYZqNo7INlo5MH0JTSEWN0LOMv== ID Date Data Source [id number] 04/07/2020 09:02:00 AM EDT [facility] Name Value Range Interpretation Code Description Data Rosanna rce(s) Supporting Document(s) Troponin I 0.000-0.056 [facility] tavo VÁSQUEZ RN read back critical information 04/07/20 0901 [facility] ID Date Data Source [id number] 04/07/2020 02:48:00 AM EDT [facility] Name Value Range Interpretation Code Description Data Rosanna rce(s) Supporting Document(s) Respiratory specimen severe acute respir atory syndrome coronavirus 2 (SARS-CoV-2) RNA [facility] This lab was ordered by [facility] and reported by . ID Date Data Source [id number] 04/07/2020 02:47:00 AM EDT [facility] test? YESEmployed in healthcare? NOSymptomatic per CDC? NOIf yes date of onset? 04/07/20Hospitalized? NOICU? NOResident in congregated care? [facility] [place] [facility] NO? NO Name Value Range Interpretation Code Description Data Rosanna rce(s) Supporting Document(s) SARS-CoV-2 RNA Negative Normal (applies to non-numeric r esults) [facility] Negative results should be treated as [...] Certificate of Accreditation. Factsheets for healthcare providers: https://www.fda.gov/media/407143/download Factsheets for patients: https://www.fda.gov/media/691304/download THIS IS A STATE REPORTABLE COMMUNICABLE DISEASE. Manual entry verified by Veronica Mcgowan 04/07/20 0245 ID Date Data Source [id number] 04/07/2020 02:00:00 AM T [facility] Name Value Range Interpretation Code Description Data Rosanna rce(s) Supporting Document(s) Troponin I 0.000-0.056 [facility] tavo MUHAMMAD RN read back critical informati on 04/07/20 0158 [facility] ID Date Data Source [id number] 04/07/2020 02:00:00 AM [facility] Name Value Range Interpretation Code Description Data Rosanna rce(s) Supporting Document(s) Lipase 119 U/L 73-393 Normal (applies to non-numeric resul ts) [facility] ID Date Data Source [id number] 04/07/2020 02:00:00 AM [facility] Name Value Range Interpretation Code Description Data Rosanna rce(s) Supporting Document(s) Sodium 138 mmol/L 136-145 Normal (applies to non-numeric resul ts) [facility] Potassium 3.5-5.1 Normal (applies to non-numeric resul ts) [facility] Chloride 101 mmol/L 98-107 Normal (applies to non-numeric resul ts) [facility] Carbon Dioxide CO2 21-32 Normal (applies to non-numer ic results) [facility] Anion Gap 5.0-16.0 Normal (applies to non-numeric resul ts) [facility] BUN 17 mg/dL 7-18 Normal (applies to non-numeric results) [facility] Creatinine,Serum 0.8-1.5 Normal (applies to non-numeric results) [facility] GFR >60 Normal (applies to non-numeric results) [facility] Glucose Level 98 mg/dL 60-99 Normal (applies to non-numeric re sults) [facility] Reference range is only applicable when patient is fasting Note the following drug interference: Sulfasalazine Sulfapyridine Can see falsely depressed Can see falsely elevated result with up to 17% results with up to 11% decrease in measurement increase in measurement Recommend patients be collected for this test prior to administration of either drug. Calcium 8.5-10.1 Normal (applies to non-numeric resul ts) [facility] Bilirubin,Total 0.1-1.9 Normal (applies to non-numeric results) [facility] SGOT(AST) 16 U/L 15-37 Normal (applies to non-numeric resul ts) [facility] Note the following drug interference: Sulfasalazine Sulfapyridine Can see falsely depressed Can see falsely elevated result with up to 10% results with up to 10% decrease in measurement increase in measurement Recommend patients be collected for this test prior to administration of either drug. SGPT(ALT) 28 U/L 12-78 Normal (applies to non-numeric resul ts) [facility] Note the following drug interference: Sulfasalazine Sulfapyridine Can see falsely depressed Can see falsely elevated result with up to 29% results with up to 10% decrease in measurement increase in measurement Recommend patients be collected for this test prior to administration of either drug. Alkaline Phosphatase 84 U/L 38-126 Normal (applies to non-num kyle results) [facility] can increase Alkaline Phosp le vels up to 2 times the normal adult value. Normal values for children and adolescents are 2 to 3 times the normal adult value. Total Protein 6.0-8.2 Normal (applies to non-numeric re sults) [facility] Albumin Level 3.4-5.0 Normal (applies to non-numeric re sults) [facility] ID Date Data Source [id number] 04/07/2020 01:48:00 AM EDT [facility] Name Value Range Interpretation Code Description Data Rosanna rce(s) Supporting Document(s) B-Type Natriuretic Peptide BNP <450 Above high normal [facility] Results of this test should always be us ed in conjunction with the patients medical history, clinical presentation, and other findings. ID Date Data Source [id number] [facility] Value Range Interpretation Code Description Data Rosanna rce(s) Supporting Document(s) D-Dimer,Quant 0.19-0.50 Above high normal [facility] The negative predictive value for DVT or [...] on anticoagulant therapy. ID Date Data Source [id number] 04/07/2020 01:25:00 AM [facility] Name Value Range Interpretation Code Description Data Rosanna rce(s) Supporting Document(s) PT 9.2-11.7 Normal (applies to non-numeric results) [facility] INR Normal (applies to non-numeric results) [facility] The use of INR is restricted to patients on stable oral anticoagulant. Therapeutic Range: 2.0 - 3.0 High Risk Range: 2.5 - 3.5 ID Date Data Source [id number] 04/07/2020 01:25:00 AM T [facility] Name Value Range Interpretation Code Description Data Rosanna rce(s) Supporting Document(s) PTT 23.8-37.9 Normal (applies to non-numeric results) [facility] ID Date Data Source [id number] 04/07/2020 01:08:00 AM [facility] Name Value Range Interpretation Code Description Data Rosanna rce(s) Supporting Document(s) White Blood Count 3.5-10.5 Normal (applies to non-numeri c results) [facility] Red Blood Count 4.30-5.70 Normal (applies to non-numeric results) [facility] Hemoglobin 13.5-17.5 Normal (applies to non-numeric resul ts) [facility] Hematocrit 38.8-50.0 Normal (applies to non-numeric resul ts) [facility] Mean Corpuscular Volume 81.2-95.1 Normal (applies to non- numeric results) [facility] Mean Corpuscular Hgb 25.6-32.2 Normal (applies to non-num kyle results) [facility] Mean Corpuscular Hgb Conc 32.0-36.0 Normal (applies to no n-numeric results) [facility] Red Cell Distribution Width 11.8-15.6 Normal (appli es to non-numeric results) [facility] Platelet Count 215 x10 3/uL 150-450 Normal (applies to non-numeric results) [facility] Mean Platelet Volume 9.4-12.4 Normal (applies to non-num kyle results) [facility] Neutrophils% (Auto) 31.0-71.0 Normal (applies to non-nume dasha results) [facility] Lymphocytes% (Auto) 20.0-55.0 Normal (applies to non-nume dasha results) [facility] Monocytes% (Auto) 4.0-12.0 Normal (applies to non-numeri c results) [facility] Eosinophils% (Auto) 1.0-8.0 Normal (applies to non-nume dasha results) [facility] Basophils% (Auto) 0.0-2.0 Normal (applies to non-numeri c results) [facility] Immature Granulocytes% (Auto) 0.0-2.0 Normal (kristina lies to non-numeric results) [facility] Neutrophils# (Auto) 1.50-6.20 Normal (applies to non-nume dasha results) [facility] Lymphocytes# (Auto) 1.20-4.00 Normal (applies to non-nume dasha results) [facility] Monocytes# (Auto) 0.00-0.90 Normal (applies to non-numeri c results) [facility] Eosinophils# (Auto) 0.00-0.50 Normal (applies to non-nume dasha results) [facility] Basophils# (Auto) 0.00-0.20 Normal (applies to non-numeri c results) [facility] Immature Granulocytes# (Auto) 0.00-7.00 No rmal (applies to non-numeric results) [facility] ID Date Data Source [id number] 04/07/2020 06:28:00 AM EDT [facility] Imaging Services Department Imaging Report [address] [address] %(RAD)RES..mtdd.print.filter("line") Name: ROBERT CERDA SR : 1935 Age/Sex: 84M Ordering Provider: Devon Song NP Med Rec #: [id number] Reg Status: DEP ER Room #: Date of Service: 04/06/20 Report Number: [id number] cc:Sushila Rubalcava MD Send Report To: [id number] XRP/XR Chest Xray Portable Reason for exam: [...] Date/Time: 04/07/20 0031 Transcribed Date/Time: 04/07/20 0628 [employer] Stillman: PRASHANT Name Value Range Interpretation Code Description Data Rosanna rce(s) Supporting Document(s) Procedure Social History Code Duration Value Status Description Data Source(s ) Smoking 05/22/2020 12:00:00 AM EST Patient is a former smoker completed Patient is a former smoker [facility] ([facility]) Smoking 04/07/2020 12:00:00 AM EDT Unknown if ever smoked comp leted Unknown if ever smoked [facility] Vital Signs ID Date Data Source UNK Name Value Range Interpretation Code Description Data Source(s) Body weight 213 [lb_av] 213 [lb_av] eCW1 (Formerly [facility]) Body weight 96.62 kg 96.62 kg eCW1 ([facility]) Body height 72 [in_i] 72 [in_i] eCW1 (On license of [facility]) Body mass index (BMI) [Ratio] 28.88 kg/m2 28.88 kg/m2 eCW1 ([facility]) Body weight 213 [lb_av] 213 [lb_av] eCW1 (Formerly [facility]) Body weight 96.62 kg 96.62 kg eCW1 (On license of [facility]) Body height 72 [in_i] 72 [in_i] eCW1 (On license of [facility]) Body mass index (BMI) [Ratio] 28.88 kg/m2 28.88 kg/m2 eCW1 ([facility]) Body weight 213 [lb_av] 213 [lb_av] eCW1 (Formerly [facility]) Body weight 96.62 kg 96.62 kg eCW1 (On license of [facility]) Body height 72 [in_i] 72 [in_i] eCW1 (On license of [facility]) Body mass index (BMI) [Ratio] 28.88 kg/m2 28.88 kg/m2 eCW1 ([facility]) Systolic blood pressure 128 mm[Hg] 128 mm[Hg] e CW1 ([facility]) Diastolic blood pressure 84 mm[Hg] 84 mm[Hg] eCW1 ([facility]) Body weight 213.6 [lb_av] 213.6 [lb_av] eCW1 (Formerly [facility], [facility]) Body weight 96.89 kg 96.89 kg eCW1 (On license of [facility]) Body height 72 [in_i] 72 [in_i] eCW1 (On license of [facility]) Body mass index (BMI) [Ratio] 28.97 kg/m2 28.97 kg/m2 eCW1 ([facility]) Systolic blood pressure 124 mm[Hg] 124 mm[Hg] e CW1 ([facility]) Diastolic blood pressure 82 mm[Hg] 82 mm[Hg] eCW1 ([facility]) Heart rate 97 /min 97 /min eCW1 ([facility]) Respiratory rate 18 /min 18 /min eCW1 ([facility]) Body temperature 97.8 [degF] 97.8 [degF] eCW1 ( [facility]) Systolic blood pressure 132 mm[Hg] 132 mm[Hg] e CW1 ([facility]) Diastolic blood pressure 80 mm[Hg] 80 mm[Hg] eCW1 ([facility]) Body weight 212.6 [lb_av] 212.6 [lb_av] eCW1 (Formerly [facility], [facility]) Body weight 96.43 kg 96.43 kg eCW1 (On license of [facility]) Body height 72 [in_i] 72 [in_i] eCW1 (On license of [facility]) Body mass index (BMI) [Ratio] 28.83 kg/m2 28.83 kg/m2 eCW1 ([facility]) Body weight 96.8 kg 96.8 kg eCW1 (On license of [facility]) Body weight 213.4 [lb_av] 213.4 [lb_av] eCW1 (Formerly [facility], [facility]) Body mass index (BMI) [Ratio] 28.94 kg/m2 28.94 kg/m2 W1 ([facility]) Body height 72 [in_i] 72 [in_i] eCW1 (On license of [facility]) Heart rate 93 /min 93 /min eCW1 ([facility]) Respiratory rate 18 /min 18 /min eCW1 ([facility]) Systolic blood pressure 126 mm[Hg] 126 mm[Hg] e CW1 ([facility]) Body temperature 96.2 [degF] 96.2 [degF] eCW1 ( [facility]) Diastolic blood pressure 70 mm[Hg] 70 mm[Hg] eCW1 ([facility]) Body weight 213.6 [lb_av] 213.6 [lb_av] eCW1 (Formerly [facility], [facility]) Body height 72 [in_i] 72 [in_i] eCW1 (On license of [facility]) Body mass index (BMI) [Ratio] 28.97 kg/m2 28.97 kg/m2 eCW1 ([facility]) Heart rate 77 /min 77 /min eCW1 ([facility]) Respiratory rate 18 /min 18 /min eCW1 (Critical access hospital) Body temperature 97.9 [degF] 97.9 [degF] eCW1 ( [facility]) Systolic blood pressure 145 mm[Hg] 145 mm[Hg] e CW1 ([facility]) Diastolic blood pressure 69 mm[Hg] 69 mm[Hg] eCW1 ([facility]) Body weight 217.2 [lb_av] 217.2 [lb_av] eCW1 (Formerly [facility], [facility]) Body height 72 [in_i] 72 [in_i] eCW1 (On license of [facility]) Body mass index (BMI) [Ratio] 29.45 kg/m2 29.45 kg/m2 eCW1 ([facility]) Heart rate 67 /min 67 /min eCW1 ([facility]) Respiratory rate 17 /min 17 /min eCW1 ([facility] hospital) Body temperature 98.1 [degF] 98.1 [degF] eCW1 ( [facility]) Systolic blood pressure 122 mm[Hg] 122 mm[Hg] e CW1 ([facility]) Diastolic blood pressure 66 mm[Hg] 66 mm[Hg] eCW1 ([facility]) Systolic blood pressure 116 mm[Hg] 116 mm[Hg] M EDENT ([facility], ) Diastolic blood pressure 66 mm[Hg] 66 mm[Hg] MEDENT ([facility], ) Heart rate 73 /min 73 /min MEDENT ([facility] ) Oxygen saturation in Arterial blood by Pulse oximetry 98 % 98 % MED[facility] ([facility], ) Body height 72 [in_i] 72 [in_i] MEDENT ([facility]) 6'0" Body weight 214.00 [lb_av] 214.00 [lb_av] MEDEN T ([facility]) Body mass index (BMI) [Ratio] 29.0 kg/m2 29.0 k g/m2 [facility] ([facility]) [facility] body weight 178 [lb_av] 178 [lb_av] MEDEN T ([facility]) Body weight 97.070 kg 97.070 kg [facility] ([facility]) Body surface area Derived from formula 2.19 m2 2.19 m2 [facility] ([facility]) Body weight 218.4 [lb_av] 218.4 [lb_av] eCW1 (Formerly [facility], [facility]) Body height 72 [in_i] 72 [in_i] eCW1 (On license of [facility]) Body mass index (BMI) [Ratio] 29.62 kg/m2 29.62 kg/m2 eCW1 ([facility]) Heart rate 75 /min 75 /min eCW1 ([facility]) Respiratory rate 17 /min 17 /min eCW1 ([facility]) Body temperature 97.6 [degF] 97.6 [degF] eCW1 ( [facility]) Systolic blood pressure 138 mm[Hg] 138 mm[Hg] e CW1 ([facility]) Diastolic blood pressure 79 mm[Hg] 79 mm[Hg] eCW1 ([facility]) Body weight 215.4 [lb_av] 215.4 [lb_av] eCW1 (Formerly [facility], [facility]) Body height 72 [in_i] 72 [in_i] eCW1 (On license of [facility]) Body mass index (BMI) [Ratio] 29.21 kg/m2 29.21 kg/m2 W1 ([facility]) Heart rate 76 /min 76 /min eCW1 ([facility]) Respiratory rate 18 /min 18 /min eCW1 ([facility]) Body temperature 97.4 [degF] 97.4 [degF] eCW1 ( [facility]) Systolic blood pressure 135 mm[Hg] 135 mm[Hg] e CW1 ([facility]) Diastolic blood pressure 70 mm[Hg] 70 mm[Hg] eCW1 ([facility]) Body weight 214.6 [lb_av] 214.6 [lb_av] eCW1 (Formerly [facility], [facility]) Body height 72 [in_i] 72 [in_i] eCW1 (On [facility] of [facility]) Body mass index (BMI) [Ratio] 29.10 kg/m2 29.10 kg/m2 eCW1 ([facility]) Heart rate 57 /min 57 /min eCW1 ([facility]) Respiratory rate 19 /min 19 /min eCW1 (Critical [facility] hospital) Body temperature 96.8 [degF] 96.8 [degF] eCW1 ( [facility]) Systolic blood pressure 144 mm[Hg] 144 mm[Hg] e CW1 ([facility]) Diastolic blood pressure 91 mm[Hg] 91 mm[Hg] eCW1 ([facility]) Body weight 218 [lb_av] 218 [lb_av] eCW1 ([facility]ly [facility]) Body height 72 [in_i] 72 [in_i] eCW1 (On [facility] of [facility]) Body mass index (BMI) [Ratio] 29.56 kg/m2 29.56 kg/m2 eCW1 ([facility]) Heart rate 86 /min 86 /min eCW1 ([facility]) Respiratory rate 18 /min 18 /min eCW1 ([facility]) Systolic blood pressure 128 mm[Hg] 128 mm[Hg] e CW1 ([facility]) Diastolic blood pressure 72 mm[Hg] 72 mm[Hg] eCW1 ([facility]) Body weight 224 [lb_av] 224 [lb_av] eCW1 ([facility]ly [facility]) Body height 72 [in_i] 72 [in_i] eCW1 (On [facility] of [facility]) Body mass index (BMI) [Ratio] 30.38 kg/m2 30.38 kg/m2 eCW1 ([facility]) Heart rate 58 /min 58 /min eCW1 ([facility]) Respiratory rate 18 /min 18 /min eCW1 ([facility] hospital) Body temperature 97.3 [degF] 97.3 [degF] eCW1 ( [facility]) Systolic blood pressure 172 mm[Hg] 172 mm[Hg] e CW1 ([facility]) Diastolic blood pressure 74 mm[Hg] 74 mm[Hg] eCW1 ([facility]) Body height 72 [in_i] 72 [in_i] eCW1 ([facility]) Body weight 224 [lb_av] 224 [lb_av] eCW1 (Formerly [facility]) Body mass index (BMI) [Ratio] 30.38 kg/m2 30.38 kg/m2 eCW1 ([facility]) Systolic blood pressure 117 mm[Hg] 117 mm[Hg] e CW1 ([facility]) Body temperature 98.2 [degF] 98.2 [degF] eCW1 ( [facility]) Heart rate 80 /min 80 /min eCW1 ([facility]) Respiratory rate 18 /min 18 /min eCW1 ([facility]) Diastolic blood pressure 72 mm[Hg] 72 mm[Hg] eCW1 ([facility]) Body weight 220 [lb_av] 220 [lb_av] eCW1 ([facility]ly [facility]) Body height 72 [in_i] 72 [in_i] eCW1 (On [facility] of [facility]) Body mass index (BMI) [Ratio] 29.83 kg/m2 29.83 kg/m2 eCW1 ([facility]) Heart rate 75 /min 75 /min eCW1 ([facility]) Respiratory rate 18 /min 18 /min eCW1 ([facility]) Systolic blood pressure 124 mm[Hg] 124 mm[Hg] e CW1 ([facility]) Diastolic blood pressure 84 mm[Hg] 84 mm[Hg] eCW1 ([facility]) Body mass index (BMI) [Ratio] 29.56 kg/m2 29.56 kg/m2 eCW1 ([facility]) Body weight 218 [lb_av] 218 [lb_av] eCW1 ([facility]) Heart rate 104 /min 104 /min eCW1 ([facility]) Body height 72 [in_i] 72 [in_i] eCW1 ([facility]) Respiratory rate 18 /min 18 /min eCW1 ([facility]) Systolic blood pressure 110 mm[Hg] 110 mm[Hg] e CW1 ([facility]) Diastolic blood pressure 66 mm[Hg] 66 mm[Hg] eCW1 ([facility]) Body mass index (BMI) [Ratio] 30.2 kg/m2 30.2 k g/m2 [facility] ([facility]) Heart rate 62 /min 62 /min [facility] ([facility]) Systolic blood pressure--sitting 127 mm[Hg] 127 mm[Hg] [facility] ([facility]) CBP, adult cuff/Ra Diastolic blood pressure--sitting 73 mm[Hg] 73 mm[Hg] [facility] ([facility]) CBP, adult cuff/Ra Body weight 223.00 [lb_av] 223.00 [lb_av] MEDEN T ([facility]) Body height 72 [in_i] 72 [in_i] [facility] ([facility]) 6'0" Body weight 219 [lb_av] 219 [lb_av] eCW1 ([facility]) Body height 72 [in_i] 72 [in_i] eCW1 (On [facility]) Body mass index (BMI) [Ratio] 29.70 kg/m2 29.70 kg/m2 eCW1 ([facility]) Heart rate 68 /min 68 /min eCW1 ([facility]) Respiratory rate 16 /min 16 /min eCW1 ([facility] hospital) Body temperature 98.2 [degF] 98.2 [degF] eCW1 ( [facility]) Systolic blood pressure 110 mm[Hg] 110 mm[Hg] e CW1 ([facility]) Diastolic blood pressure 68 mm[Hg] 68 mm[Hg] eCW1 ([facility]) Body weight 220.00 [lb_av] 220.00 [lb_av] MEDEN T ([facility]) Body height 72 [in_i] 72 [in_i] [facility] ([facility]) 6'0" Body mass index (BMI) [Ratio] 29.8 kg/m2 29.8 k g/m2 [facility] ([facility]) Heart rate 49 /min 49 /min [facility] ([facility]) Systolic blood pressure--sitting 150 mm[Hg] 150 mm[Hg] [facility] ([facility]) CBP, adult cuff/Ra Diastolic blood pressure--sitting 79 mm[Hg] 79 mm[Hg] [facility] ([facility]) CBP, adult cuff/Ra ID Date Data Source [id number] 05/01/2021 11:25:00 AM EDT [facility] spital Name Value Range Interpretation Code Description Data Source(s) Weight Measurement Method 8 8 [facility] Weight 3520 3520 [facility] pital Temperature Source 7 7 [facility] Temperature 98.8 98.8 [facility] spital Respiratory Effort 3 3 [facility] Respiratory Rate 22 22 [facility] Pulse Assessment Method 4 4 [facility] Pulse Rate 64 64 [facility] 72 72 [facility] 146/88 146/88 [facility] ID Date Data Source [id number] 04/24/2021 11:37:00 AM EDT [facility] Name Value Range Interpretation Code Description Data Source(s) Weight Measurement Method 8 8 [facility] Weight 3520 3520 [facility] pital Temperature Source 7 7 [facility] Temperature 97.5 97.5 [facility] spital Respiratory Effort 1 1 [facility] Respiratory Rate 16 16 [facility] Pulse Assessment Method 4 4 [facility] Pulse Rate 57 57 [facility] pital Height 72 72 [facility] Blood Pressure 111/76 111/76 [facility] Weight Measurement Method 8 8 [facility] Weight 3520 3520 [facility] pital Temperature Source 7 7 [facility] Temperature 97.5 97.5 [facility] spital Respiratory Effort 1 1 [facility] Respiratory Rate 16 16 [facility] Pulse Assessment Method 4 4 [facility] Pulse Rate 64 64 [facility] pital Height 72 72 [facility] pital Blood Pressure 128/82 128/82 [facility] Weight Measurement Method 8 8 [facility] Weight 3520 3520 [facility] pital Temperature Source 7 7 [facility] Temperature 97.5 97.5 [facility] spital Respiratory Effort 1 1 [facility] Respiratory Rate 16 16 [facility] Pulse Assessment Method 4 4 [facility] Pulse Rate 64 64 [facility] pital Height 72 72 [facility] pital Blood Pressure 128/82 128/82 [facility] ID Date Data Source [id number] 12/12/2020 10:38:00 AM EDT [facility] Name Value Range Interpretation Code Description Data Source(s) Weight Measurement Method 8 8 [facility] Weight 3520 3520 [facility] pital Temperature Source 7 7 [facility] Temperature 97.9 97.9 [facility] Respiratory Effort 1 1 [facility] Respiratory Rate 18 18 [facility] Pulse Assessment Method 4 4 [facility] Pulse Rate 89 89 [facility] pital Height 72 72 [facility] pital Blood Pressure 106/92 106/92 [facility] Weight Measurement Method 8 8 [facility] Weight 3520 3520 [facility] pital Temperature Source 7 7 [facility] Temperature 97.9 97.9 [facility] Respiratory Effort 1 1 [facility] Respiratory Rate 18 18 [facility] Pulse Assessment Method 4 4 [facility] Pulse Rate 89 89 [facility] pital Height 72 72 [facility] pital Blood Pressure 106/92 106/92 [facility] ID Date Data Source [id number] 04/24/2020 05:42:17 PM EDT [facility] Name Value Range Interpretation Code Description Data Source(s) WEIGHT RECORDED 223.33 lb 223.33 lb [facility] WEIGHT RECORDED 226.85 lb 226.85 lb [facility] WEIGHT RECORDED 226.85 lb 226.85 lb [facility] Body height Measured 72.01 in 72.01 in [facility] WEIGHT RECORDED 226.85 lb 226.85 lb [facility] Body height Measured 72 in 72 in [facility] TRANSFER FROM [facility] ID Date Data Source [id number] 04/08/2020 11:56:[address] [facility] Name Value Range Interpretation Code Description Data Source(s) Weight Measurement Method 8 8 [facility] Weight 3536 3536 [facility] pital Temperature Source 7 7 [facility] Temperature 98.1 98.1 [facility]ital Respiratory Effort 1 1 [facility] Respiratory Rate 18 18 [facility] Pulse Assessment Method 4 4 [facility] Pulse Rate 60 60 [facility] 143/87 143/87 [facility] Weight Measurement Method 8 8 [facility] Weight 3536 3536 [facility] pital Temperature Source 7 7 [facility] Temperature 97 97 [facility] spital Respiratory Effort 1 1 [facility] Respiratory Rate 22 22 [facility] Pulse Assessment Method 4 4 [facility] Pulse Rate 60 60 [facility] pital Blood Pressure 171/94 171/94 [facility] Weight Measurement Method 8 8 [facility] Weight 3536 3536 [facility] pital Temperature Source 7 7 [facility] Temperature 97 97 [facility] spital Respiratory Effort 1 1 [facility] Respiratory Rate 24 24 [facility] Pulse Assessment Method 4 4 [facility] Pulse Rate 101 101 [facility] pital Blood Pressure 179/101 179/101 [facility] Patient Treatment Plan of Care Planned Activity Planned Date Details Description Data Source (s) Cephalexin 500 MG Oral Capsule 04/09/2021 12:00:00 AM EDT eCW1 ([facility]) Vitamin B12 1000 MCG 02/20/2021 12:00:00 AM EDT eCW1 ([facility]) Vitamin B12 1000 MCG 02/20/2021 12:00:00 AM EDT eCW1 ([facility]) Vitamin B12 1000 MCG 02/20/2021 12:00:00 AM EDT eCW1 ([facility]) Vitamin B12 1000 MCG 02/20/2021 12:00:00 AM EDT eCW1 ([facility]) Vitamin B12 1000 MCG 02/20/2021 12:00:00 AM EDT eCW1 ([facility]) Vitamin B12 1000 MCG 02/20/2021 12:00:00 AM EDT eCW1 ([facility]) Prednisone 20 MG Oral Tablet 11/07/2020 12:00:00 AM EDT eCW1 ([facility]) Prednisone 20 MG Oral Tablet 11/07/2020 12:00:00 AM EDT eCW1 ([facility]) gabapentin 100 MG Oral Capsule 10/24/2020 12:00:00 AM EDT eCW1 ([facility]) Diclofenac Sodium 0.01 MG/MG Topical Gel [Voltaren] 08/22/19 21 12:00:00 AM EST eCW1 ([facility]) Diclofenac Sodium 0.01 MG/MG Topical Gel [Voltaren] 08/22/19 12:00:00 AM EST eCW1 ([facility]) Diclofenac Sodium 0.01 MG/MG Topical Gel [Voltaren] 08/22/19 21 12:00:00 AM EST eCW1 ([facility]) Diclofenac Sodium 0.01 MG/MG Topical Gel [Voltaren] 08/22/19 21 12:00:00 AM EST eCW1 ([facility]) Diclofenac Sodium 0.01 MG/MG Topical Gel [Voltaren] 08/22/19 12:00:00 AM EST eCW1 ([facility]) Diclofenac Sodium 0.01 MG/MG Topical Gel [Voltaren] 08/22/19 12:00:00 AM EST eCW1 ([facility]) Diclofenac Sodium 0.01 MG/MG Topical Gel [Voltaren] 08/22/19 12:00:00 AM EST eCW1 ([facility]) Diclofenac Sodium 0.01 MG/MG Topical Gel [Voltaren] 08/22/19 12:00:00 AM EST eCW1 ([facility]) cefdinir 300 MG Oral Capsule 07/15/2020 12:00:00 AM EST eCW1 ([facility]) clopidogrel 75 MG Oral Tablet 05/07/2020 12:00:00 AM EST eCW1 ([facility]) clopidogrel 75 MG Oral Tablet 05/07/2020 12:00:00 AM EST eCW1 ([facility]) clopidogrel 75 MG Oral Tablet 05/07/2020 12:00:00 AM EST eCW1 ([facility]) clopidogrel 75 MG Oral Tablet 05/07/2020 12:00:00 AM EST eCW1 ([facility]) atorvastatin 40 MG Oral Tablet 05/07/2020 12:00:00 AM EST eCW1 ([facility]) Aspirin 81 MG Delayed Release Oral Tablet 05/07/2020 12:00:00 AM ES T eCW1 ([facility]) clopidogrel 75 MG Oral Tablet 05/07/2020 12:00:00 AM EST eCW1 ([facility]) Omeprazole 20 MG Delayed Release Oral Capsule 04/17/2020 12:00:00 A M EDT eCW1 ([facility]) Omeprazole 20 MG Delayed Release Oral Capsule 04/17/2020 12:00:00 A M EDT eCW1 ([facility]) Omeprazole 20 MG Delayed Release Oral Capsule 04/17/2020 12:00:00 A M EDT eCW1 ([facility]) clopidogrel 75 MG Oral Tablet 04/10/2020 12:00:00 AM [facility] Aspirin 81 MG Chewable Tablet 04/10/2020 12:00:00 AM [facility] Metoprolol Tartrate 50 MG Oral Tablet 04/09/2020 12:00:00 AM [facility] atorvastatin 40 MG Oral Tablet 04/09/2020 12:00:00 AM [facility] Nitroglycerin 0.4 MG Sublingual Tablet 04/07/2020 12:09:17 PM [facility]
[2021-05-07] MEDS ORDERED: ALLO300T2 PO (11:29)
[2021-05-07] MEDS ORDERED: MEMA1TAB3 PO (11:29)
[2021-05-07] MEDS ORDERED: OMEP1CAP73 PO (11:29)
[2021-05-07] MEDS ORDERED: HOME MED LIST COMPLETE! XX SCH (11:30)
[2021-05-07] MEDS ORDERED: PILL CUTTER 1 EACH XX PRN (14:40)
--- NOTE | 2021-05-07 15:37 | HPEPDOC ---
[facility] Medical History & Physical Date of Admission May 07, 2021 Date of Service: May 07, 2021 Primary Care Physician: MARINO CABRERA MD Attending Physician: LAZ PADILLA DO History and Physical CHIEF COMPLAINT: Syncope HISTORY OF PRESENT ILLNESS: Patient is an 85-year-old male who presented to the emergency department after passing out during Mohs surgery. Patient was laying on the table in the dermatology office when apparently the patient began turning very pale and began not responding to his who was asking if he was okay. Patient states all he remembers is laying on the chair and then waking up with plant anatomy teacher around him. Patient did not fall out of the chair did not get injured. This was a witnessed syncopal event as the patient's was in the room with him. Patient had the lesion excised however, he was not able to have the wound closed. The wound was dressed and the patient was brought to the emergency department. In the emergency department, patient is feeling better and states that he does not feel any lightheadedness or dizziness at this time. Patient is unsure of exactly what happened. Patient's says that he was laying on the table after they had left to process the specimen and he began to turn very pale. She began to ask if he was okay and he was not responding. She went over to see how he was doing and call for help. Patient denies any chest pain, difficulty breathing, or palpitations at this time. PAST MEDICAL HISTORY: 1. Hypertension. 2. BPH. 3. Gout. 4. COPD 5. Bilateral hearing aids 6. LACEY 7. Coronary artery disease with drug-eluting stents placed in March 2020 8. 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 Kidney stone PAST SURGICAL HISTORY: 1. Appendectomy and subsequent lysis of adhesions. 2. Kidney operation as child 3. Knee surgery in 2000. 4. Cyst removal left neck 5. Cholecystectomy 6. Arm surgery 7. Lithotripsy 8. Right knee total arthroplasty in 2016 9. Stenting in 2019 SOCIAL HISTORY: Patient is a former smoker and denies smoking for some time. Patient rarely drinks alcohol. Patient denies illicit drug use FAMILY HISTORY: Patient's father of an [place]. Patient's mother is . ALLERGIES: Please see below. REVIEW OF SYSTEMS: General: Patient denies fevers HEENT: Patient denies headaches Cardiovascular: Patient denies chest pain Respiratory: Patient denies shortness of breath, cough GI: Patient denies abdominal pain, nausea, vomiting, diarrhea : Patient denies increased frequency or pain with urination Extremities: Patient denies swelling or pain in extremities Neurological: Patient denies numbness or tingling in legs Skin: Patient denies any new rashes or lesions. Hematologic: Patient denies any easy bruising. Lymphatic: Patient denies any lumps lumps or bumps in neck, axilla, or groin HOME MEDICATIONS: Please see below. PHYSICAL EXAMINATION: VITAL SIGNS: Temperature 97.2, pulse 56, respiratory rate 16, blood pressure 133/76, pulse oximetry 94% on room air. General: Alert and oriented male patient who sitting up in bed when I walked in. Patient not appear to be in any acute distress. HEENT: Normocephalic, atraumatic, moist mucous membranes. Neck: No lymphadenopathy or thyromegaly Cardiac: Regular rate and rhythm, no murmurs, normal S1, normal S2 Pulm: Clear to auscultation bilaterally. No wheezes, rhonchi, rales Abd: Nondistended, nontender to palpation, normal bowel sounds Ext: No edema bilateral lower extremities Neuro: Patient was able to move all 4 extremities on command and reported equal sensation light touch in all 4 extremities. Skin: Skin of the head, neck, upper and lower extremities was examined did not show any evidence of rash or wounds. LABORATORY DATA: See below. IMAGING: Chest x-ray performed 05/07/2021 was reported to show new area of parenchymal opacification of the left lung base. Consider follow-up to exclude growth. No other significant abnormalities currently identified MICROBIOLOGY: Please see below. ASSESSMENT: 85-year-old male presented from the manager mail office after syncopized and during Mohs surgery. . PLAN: 1. Syncope. This was a witnessed event the patient did not sustain any injuries as patient did not fall off the table that he was laying on. Patient will have an echocardiogram performed as the patient does have an extensive cardiac history. Patient most likely vasovagal during the procedure however, we will observe the patient overnight on telemetry and continue to monitor the patient's vital signs. Orthostatic vitals were done in the emergency department are negative but we will continue to monitor these. At the patient's work-up turns out to be negative, patient can be discharged home. 2. Hypertension. Continue patient's home medications with hold parameters. 3. BPH. Continue patient on medications. 4. Hyperlipidemia. Continue patient's on medications. DVT prophylaxis: Mechanical due to the patient's recent procedure on his scalp. CODE STATUS: DNR/DNI. Patient states he has a form filled out of this in the past and is in agreement with DNR/DNI. Disposition: Patient be admitted to the medical surgical floor on telemetry under observation. I expect the patient to be discharged prior to 2 midnight stay. Vital Signs Vital Signs Date Time Temp Pulse Resp B/P (MAP) Pulse Ox O2 Delivery O2 Flow Rate FiO2 05/07/21 14:15 133/76 (95) 05/07/21 14:11 56 94 05/07/21 09:11 97.2 16 Laboratory Data Labs 24H Laboratory Tests 2 05/07/21 09:23: Coronavirus (COVID-19)(PCR) NEGATIVE, Influenza Type A (RT-PCR) NEGATIVE, Influenza Type B (RT-PCR) NEGATIVE, Respiratory Syncytial Virus (PCR) NEGATIVE 05/07/21 09:25: Immature Granulocyte % (Auto) 0.5, Neutrophils (%) (Auto) 67.3H, Lymphocytes (%) (Auto) 18.3L, Monocytes (%) (Auto) 9.1H, Eosinophils (%) (Auto) 3.7H, Basophils (%) (Auto) 1.1H, Neutrophils # (Auto) 4.1, Lymphocytes # (Auto) 1.1L, Monocytes # (Auto) 0.6, Eosinophils # (Auto) 0.2, Basophils # (Auto) 0.1, Nucleated Red Blood Cells % (auto) 0.0, Anion Gap 4L, Glomerular Filtration Rate > 60.0, Calcium Level 8.7L, Magnesium Level 1.9, Thyroid Stimulating Hormone (TSH) 2.030 05/07/21 09:33: POC Troponin I (Misc) 0.00 CBC/BMP Laboratory Tests 05/07/21 09:25 Home Medications Scheduled Aspirin (Aspirin EC) 81 Mg Tablet.dr, 81 MG PO DAILY Atorvastatin Calcium (Atorvastatin Calcium) 40 Mg Tablet, 40 MG PO DAILY Clopidogrel Bisulfate (Plavix) 75 Mg Tablet, 75 MG PO DAILY Colchicine (Colchicine) 0.6 Mg Tablet, 0.6 MG PO DAILY Finasteride (Finasteride) 5 Mg Tab, 5 MG PO QHS Gabapentin (Neurontin) 300 Mg Cap, 600 MG PO TID Isosorbide Mononitrate (Isosorbide Mononitrate) 10 Mg Tablet, 5 MG PO BID Losartan Potassium (Losartan Potassium) 100 Mg Tab, 100 MG PO DAILY Memantine HCl (Memantine HCl) 5 Mg Tablet, 5 MG PO BID Omeprazole (Omeprazole) 20 Mg Capsule.dr, 20 MG PO DAILY Tamsulosin HCl (Flomax) 0.4 Mg Cap, 0.4 MG PO DAILY allopurinoL (allopurinoL) 300 Mg Tablet, 300 MG PO DAILY Allergies Coded Allergies: No Known Allergies (Verified , 10/26/16) A-FIB/CHADSVASC A-FIB History Current/History of A-Fib/PAF?: No LAZ PADILLA DO May 07, 2021 15:37
[2021-05-07] MEDS: ISOSORBIDE MONONITRATE 10MG TABLET PO SCH (16:00)
[2021-05-07 16:16] VITALS: BP 121/78
[2021-05-07] MEDS: GABAPENTIN 300 MG CAP PO SCH ×2 (16:19→20:37)
--- NOTE | 2021-05-07 20:33 | ECGEPIP ---
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
[2021-05-07] MEDS: MEMANTINE 5MG TABLET (NAMENDA) PO SCH (20:37)
[2021-05-07] MEDS ORDERED: FINASTERIDE 5 MG TAB PO SCH (21:00)
--- NOTE | 2021-05-07 22:15 | ECHO ---
ECHOCARDIOGRAM DATE OF PROCEDURE: 05/07/2021 Age: 85 Gender: Male Height: 72 inches Weight: 210 pounds REFERRING PHYSICIAN: Dr. Stan Soto INDICATION: Syncope 2D MEASUREMENTS: Aortic root 3.5 cm Ventricular septum 1.52 cm Posterior wall 1.47 cm Left ventricle diastole 4.5 cm Left atrium 2.8 cm DOPPLER MEASUREMENTS: Mild aortic regurgitation Aortic valve velocity 112 cm/s LVOT velocity 60.7 cm/s Mild mitral regurgitation Mitral E velocity 50.1 cm/s Mitral A velocity 79.7 cm/s Mitral deceleration time 219 msec MITRAL ANNULAR TISSUE DOPPLER E prime septal 5.9 cm/s, E prime lateral 6.9 cm/s DESCRIPTION: Rhythm was sinus bradycardia with first degree AV block. This was a moderately technically difficult echocardiogram, which was performed with the patient supine. No subcostal views available (technically difficult). CONCLUSIONS: 1. Moderate concentric left ventricular hypertrophy. Normal regional LV wall motion and wall thickness. Normal LV systolic function. LVEF 60% by visual estimate. Grade 1 LV diastolic dysfunction. 2. Mild aortic valve sclerosis. Mild aortic regurgitation. No aortic stenosis. 3. No pericardial effusion. 4. Moderately technically difficult echocardiogram. 5. Otherwise normal appearing echocardiogram Doppler findings.
[2021-05-07 22:54] VITALS: BP_SYST 198; BP_SYST 208; BP_SYST 210; BP_DIAS 100; BP_DIAS 110
[2021-05-07] MEDS: **hydrALAZINE** 50 MG TAB PO ONE ×2 (23:07→23:19)
[2021-05-08 02:00] VITALS: BP 168/96
[2021-05-08 06:30] VITALS: BP_SYST 113; BP_SYST 119; BP_SYST 149; BP_DIAS 74; BP_DIAS 81
[2021-05-08 06:34] VITALS: BP 149/81
[2021-05-08 08:07] LABS: HEMATOCRIT 45.1 % (42.0-52.0); MEAN CORPUSCULAR HEMOGLOBIN 30.4 pg (27.0-33.0); MEAN CORPUSCULAR HGB CONC 34.4 g/dl (32.0-36.5); MEAN CORPUSCULAR VOLUME 88.4 fl (80.0-96.0); PLATELET COUNT, AUTOMATED 226 10^3/uL (150-450); WHITE BLOOD COUNT 9.2 10^3/uL (4.0-10.0)
[2021-05-08 08:14] LABS: HEMOGLOBIN 15.5 g/dl (13.5-17.5)
[2021-05-08 08:35] LABS: BLOOD UREA NITROGEN 15 MG/DL (7-18); CALCIUM LEVEL 9.7 MG/DL (8.8-10.2); CARBON DIOXIDE LEVEL 25 MEQ/L (21-32); CHLORIDE LEVEL 105 MEQ/L (98-107); CREATININE FOR GFR 1.07 MG/DL (0.70-1.30); GLOMERULAR FILTRATION RATE > 60.0 (>35); GLUCOSE, FASTING 117 MG/DL (70-100); MAGNESIUM LEVEL 1.9 MG/DL (1.8-2.4); POTASSIUM SERUM 4.1 MEQ/L (3.5-5.1); SODIUM LEVEL 138 MEQ/L (136-145)
[2021-05-08] MEDS ORDERED: TAMSULOSIN 0.4 MG CAP PO SCH (09:00)
[2021-05-08] MEDS ORDERED: CLOPIDOGREL 75 MG TAB PO SCH (09:00)
[2021-05-08] MEDS ORDERED: LOSARTAN 50MG TABLET PO SCH (09:00)
[2021-05-08] MEDS ORDERED: OMEPRAZOLE 20 MG CAP PO SCH (09:00)
[2021-05-08] MEDS ORDERED: ASPIRIN 81MG ENTERIC TABLET PO SCH (09:00)
[2021-05-08] MEDS ORDERED: COLCHICINE 0.6 MG TABLET PO SCH (09:00)
[2021-05-08] MEDS ORDERED: ATORVASTATIN 20 MG TAB PO SCH (09:00)
[2021-05-08] MEDS ORDERED: allopurinoL 300 MG TAB PO SCH (09:00)
[2021-05-08 10:01] VITALS: BP 143/96
[2021-05-08] MEDS: ISOSORBIDE MONONITRATE 10MG TABLET PO SCH (10:01)
[2021-05-08] MEDS: GABAPENTIN 300 MG CAP PO SCH (10:02)
[2021-05-08] MEDS: MEMANTINE 5MG TABLET (NAMENDA) PO SCH (10:03)
--- NOTE | 2021-05-08 16:18 | DS.PDOC ---
Discharge Summary General Date of Admission May 07, 2021 at 10:55 Date of Discharge 05/08/2021 Primary Care Physician: MARINO CABRERA MD Attending Physician: LAZ PADILLA DO Discharge Summary PROCEDURES PERFORMED DURING STAY: None. ADMITTING DIAGNOSES: 1. Syncope. 2. Hypertension 3. BPH 4. Hyperlipidemia DISCHARGE DIAGNOSES: 1. Syncope. 2. Hypertension 3. BPH 4. Hyperlipidemia 5. Hospital-acquired delirium COMPLICATIONS/CHIEF COMPLAINT: Syncope. HISTORY OF PRESENT ILLNESS: Patient is an 85-year-old male who presented to the emergency department after passing out during Mohs surgery. Patient was laying on the table in the dermatology office when apparently the patient began turning very pale and began not responding to his who was asking if he was okay. Patient states all he remembers is laying on the chair and then waking up with instrument setter around him. Patient did not fall out of the chair did not get injured. This was a witnessed syncopal event as the patient's was in the room with him. Patient had the lesion excised however, he was not able to have the wound closed. The wound was dressed and the patient was brought to the emergency department. In the emergency department, patient is feeling better and states that he does not feel any lightheadedness or dizziness at this time. Patient is unsure of exactly what happened. Patient's says that he was laying on the table after they had left to process the specimen and he began to turn very pale. She began to ask if he was okay and he was not responding. She went over to see how he was doing and call for help. Patient denies any chest pain, difficulty breathing, or palpitations at this time.. HOSPITAL COURSE: Patient did not have any syncopal events while he was hospitalized. Patient did have elevated blood pressure but I believe this was secondary to him missing his medications in the morning. Patient did receive a dose of hydralazine overnight which did bring the patient's blood pressure down. Patient also did become orthostatic but did not have any symptoms at this time. Patient did become confused this morning about where he was although patient's was called into the room and patient became more oriented. I had to reorient the patient when I was talking with him. Patient had echocardiogram which did not show any cause of the patient's syncope. Patient was doing well and was more oriented when I went back to evaluate him later on in the morning. I spoke with the patient's who stated that she felt comfortable taking the patient home. The plan was to send the patient to dermatology in order to get his dressing change and for them to look at the wound. Patient was deemed ready for discharge and was discharged home on 05/08/2021 DISCHARGE MEDICATIONS: Please see below. ALLERGIES: Please see below. PHYSICAL EXAMINATION ON DISCHARGE: VITAL SIGNS: Please see below. General: Alert and initially oriented only person however, after reorientation was oriented to place and time male who was sitting in the chair when I walked in. Patient not appear to be in any acute distress. HEENT: Normocephalic, atraumatic, moist mucous membranes. Neck: No lymphadenopathy or thyromegaly Cardiac: Regular rate and rhythm, no murmurs, normal S1, normal S2 Pulm: Clear to auscultation bilaterally. No wheezes, rhonchi, rales Abd: Nondistended, nontender to palpation, normal bowel sounds Ext: No edema bilateral lower extremities LABORATORY DATA: Please see below. IMAGING: Chest x-ray performed 05/07/2021 was reported to show new area of parenchymal opacification of the left lung base. Consider follow-up to exclude growth. No other significant abnormalities currently identified Echocardiogram performed on 05/07/2021 was reported to show moderate concentric left ventricular hypertrophy. Normal regional left ventricular wall motion and wall thickness. Normal left ventricular systolic function. Left ventricular ejection fraction 60% by visual estimate. Grade 1 left ventricular diastolic dysfunction. Mild aortic valve sclerosis. Mild aortic regurgitation. No aortic stenosis. No pericardial effusion. Moderately technically difficult echocardiogram. Otherwise normal-appearing echo cardiogram Doppler findings PROGNOSIS: Good ACTIVITY: As tolerated. DIET: 2 g sodium DISCHARGE PLAN: Discharge home DISPOSITION: 01 Home, Self-Care. DISCHARGE INSTRUCTIONS: 1. Follow-up with primary care provider in 3 to 5 days discharge. 2. Report to the dermatology clinic directly from the hospital in order to have wound redressed and checked. 3. Return to the emergency department if symptoms worsen ITEMS TO FOLLOWUP ON ON OUTPATIENT: 1. Surgical wound on head DISCHARGE CONDITION: Stable. TIME SPENT ON DISCHARGE: 25 minutes. Vital Signs/I&Os Vital Signs Date Time Temp Pulse Resp B/P (MAP) Pulse Ox O2 Delivery O2 Flow Rate FiO2 05/08/21 10:01 143/96 05/08/21 06:34 98.2 76 17 95 Room Air I&O- Last 24 Hours up to 6 AM0 05/08/21 06:00 Intake Total 640 ml Output Total 525 ml Balance 115 ml Laboratory Data Labs 24H Laboratory Tests 2 05/08/21 07:18: Nucleated Red Blood Cells % (auto) 0.0, Anion Gap 8, Glomerular Filtration Rate > 60.0, Calcium Level 9.7, Magnesium Level 1.9 CBC/BMP Laboratory Tests 05/08/21 07:18 Discharge Medications Scheduled Aspirin (Aspirin EC) 81 Mg Tablet.dr, 81 MG PO DAILY, (Reported) Atorvastatin Calcium (Atorvastatin Calcium) 40 Mg Tablet, 40 MG PO DAILY, (Reported) Clopidogrel Bisulfate (Plavix) 75 Mg Tablet, 75 MG PO DAILY, (Reported) Colchicine (Colchicine) 0.6 Mg Tablet, 0.6 MG PO DAILY, (Reported) Finasteride (Finasteride) 5 Mg Tab, 5 MG PO QHS, (Reported) Gabapentin (Neurontin) 300 Mg Cap, 600 MG PO TID, (Reported) Isosorbide Mononitrate (Isosorbide Mononitrate) 10 Mg Tablet, 5 MG PO BID, (Reported) Losartan Potassium (Losartan Potassium) 100 Mg Tab, 100 MG PO DAILY, (Reported) Memantine HCl (Memantine HCl) 5 Mg Tablet, 5 MG PO BID, (Reported) Omeprazole (Omeprazole) 20 Mg Capsule.dr, 20 MG PO DAILY, (Reported) Tamsulosin HCl (Flomax) 0.4 Mg Cap, 0.4 MG PO DAILY, (Reported) allopurinoL (allopurinoL) 300 Mg Tablet, 300 MG PO DAILY, (Reported) Allergies Coded Allergies: No Known Allergies (Verified , 10/26/16) LAZ PADILLA DO May 08, 2021 16:18
== END 2021-05-08 14:20 | disposition home or self-care (01) ==
LOC: M ED 09:00 → M ED INP 10:55 → ENRESERV 14:58 → M MSPAV 16:06
PROVIDERS: ADMIT Family Medicine; ATTEND Family Medicine
DX: R55 Syncope and collapse (principal); I10 Essential (primary) hypertension; E78.5 Hyperlipidemia, unspecified; F05 Delirium due to known physiological condition; N40.0 Benign prostatic hyperplasia without lower urinary tract symptoms; Z79.82 Long term (current) use of aspirin; Z79.899 Other long term (current) drug therapy
CPT/HCPCS: 36415; 71045; 80048; 83735; 84443; 84484; 85025; 85027; 87631; 93005; 93041; 93306; 94760; 99285; G0378

== ENCOUNTER → 2021-09-19 | Outpatient (CLI) | payer MEDICARE ==
[~2021-09-19] MED LIST changes: +ALLO300T2 PO; +ASPI81TA26 PO; +ATOR40TA75 PO; +COLC0.6T47 PO; +ISOS1TAB12 PO; +LOSA100T45 PO; -LOSA100T50 PO; +MEMA1TAB3 PO; +OMEP10CASR PO; +OMEP1CAP73 PO; +PLAV1TAB2 PO
== END ==
LOC: M RAD 12:50
PROVIDERS: ATTEND Physician Assistant
DX: R55 Syncope and collapse (principal)